=== PATIENT | male | born 1955 | race Caucasian/White ===

== ENCOUNTER 2018-10-04 18:03 | Inpatient (IN) | payer MEDICAID ==
[~2018-10-04] VITALS: Ht 172.7 cm; Wt 55.3 kg
[2018-10-04 18:31] VITALS: BP 132/81
[2018-10-04 20:04] LABS: HEMOGLOBIN 9.8 G/DL (14.2-18.0); MEAN CORPUSCULAR VOLUME 83 FL (80-99); PLATELET COUNT 181 K/UL (150-450); RED BLOOD COUNT 3.73 M/UL (4.70-6.10); RED CELL DISTRIBUTION WIDTH 14.7 % (11.6-14.8)
[2018-10-04 20:07] LABS: LYMPHOCYTES % (AUTO) 7.4 % (20.0-45.0); MONOCYTES % (AUTO) 3.5 % (1.0-10.0); NEUTROPHILS % (AUTO) 87.4 % (45.0-75.0)
[2018-10-04 20:08] LABS: BASOPHILS % (AUTO) 0.8 % (0.0-2.0); EOSINOPHILS % (AUTO) 0.9 % (0.0-3.0)
[2018-10-04 20:12] LABS: ANION GAP 12 mmol/L (5-15); BLOOD UREA NITROGEN 65 mg/dL (7-18); CALCIUM 7.9 MG/DL (8.5-10.1); CARBON DIOXIDE 24 MMOL/L (21-32); CHLORIDE 93 MMOL/L (98-107); CREATININE 7.9 MG/DL (0.55-1.30); POTASSIUM 5.1 MMOL/L (3.5-5.1); SODIUM 129 MMOL/L (136-145)
[2018-10-04] MEDS ORDERED: Norco 5mg/325mg tab ORAL ONE ×2 (20:15→22:30)
[2018-10-04 20:17] LABS: ALANINE AMINOTRANSFERASE 58 U/L (12-78); ALBUMIN 2.3 G/DL (3.4-5.0); ALBUMIN/GLOBULIN RATIO 0.3 (1.0-2.7); ALKALINE PHOSPHATASE 479 U/L (46-116); ASPARTATE AMINO TRANSFERASE 48 U/L (15-37); BILIRUBIN,TOTAL 0.5 MG/DL (0.2-1.0)
[2018-10-04] MEDS ORDERED: Vancomycin 1 GM in NS 275 ML IVPB ONE (21:30)
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
[2018-10-04 22:40] VITALS: BP_SYST 123; BP_SYST 130; BP_DIAS 81; BP_DIAS 93
[2018-10-04] MEDS ORDERED: Norco 5mg/325mg tab ORAL PRN (23:30)
[2018-10-05] VITALS (7 sets, daily range): BP systolic 108–148; BP diastolic 57–72
[2018-10-05 06:45] LABS: HEMATOCRIT 22.9 % (42.0-52.0); HEMOGLOBIN 7.4 G/DL (14.2-18.0); MEAN CORPUSCULAR VOLUME 84 FL (80-99); PLATELET COUNT 134 K/UL (150-450); RED BLOOD COUNT 2.73 M/UL (4.70-6.10); RED CELL DISTRIBUTION WIDTH 14.6 % (11.6-14.8); WHITE BLOOD COUNT 16.9 K/UL (4.8-10.8)
[2018-10-05 06:48] LABS: ANION GAP 12 mmol/L (5-15); BLOOD UREA NITROGEN 69 mg/dL (7-18); CALCIUM 6.7 MG/DL (8.5-10.1); CARBON DIOXIDE 23 MMOL/L (21-32); CHLORIDE 96 MMOL/L (98-107); CREATININE 8.4 MG/DL (0.55-1.30); POTASSIUM 5.8 MMOL/L (3.5-5.1); SODIUM 131 MMOL/L (136-145)
[2018-10-05 08:27] LABS: % IRON SATURATION 9 % (15-50); IRON 17 ug/dL (50-175); TOTAL IRON BINDING CAPACITY 181 ug/dL (250-450)
[2018-10-05 08:29] LABS: PHOSPHORUS 7.3 MG/DL (2.5-4.9)
[2018-10-05 08:47] LABS: CHOLESTEROL 86 MG/DL (< 200); FERRITIN 1513 NG/ML (8-388); HDL CHOLESTEROL 40 MG/DL (40-60); TRIGLYCERIDES 29 MG/DL (30-150)
[2018-10-05] MEDS: Heparin 5000 units/ml inj SUBQ SCH ×2 (09:00→21:00)
[2018-10-05 09:09] LABS: BILIRUBIN, URINE NEGATIVE (NEGATIVE); COLOR,URINE PALE YELLOW; GLUCOSE, URINE (UA) 2+ (NEGATIVE); KETONES,URINE NEGATIVE (NEGATIVE); LEUKOCYTE ESTERASE ,URINE NEGATIVE (NEGATIVE); NITRITE,URINE NEGATIVE (NEGATIVE); PH,URINE 8 (4.5-8.0); PROTEIN,URINE 4+ (NEGATIVE); UROBILINOGEN,URINE NORMAL MG/DL (0.0-1.0)
[2018-10-05 09:14] LABS: APPEARANCE,URINE SLIGHTLY CLOUDY
[2018-10-05 10:43] LABS: INR 1.1 (0.9-1.1)
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
--- NOTE | 2018-10-05 11:52 | Infectious Diseases Prog Note ---
Assessment/Plan Assessment/Plan Full consult dictated: A) 1) left leg wound, ? infected, ? cellulitis, leukocytosis, ? sepsis 2) esrd, hd, pmh noted 3) allergies - nkda P) 1) vancomycin and cefepime 2 check cultures, labs and chest x-ray 3) thank you Subjective Allergies: Coded Allergies: No Known Allergies (Unverified , 10/04/18) Objective Vital Signs Last 24 Hour Vital Signs Date Time Temp Pulse Resp B/P (MAP) Pulse Ox O2 Delivery O2 Flow Rate FiO2 10/05/18 04:00 96.6 67 16 148/66 (93) 99 10/05/18 00:42 Room Air 10/05/18 00:00 97.3 77 19 124/70 (88) 99 10/04/18 22:42 98.2 86 17 123/93 95 Room Air 10/04/18 22:40 98.2 86 17 123/93 95 Room Air 10/04/18 22:40 97.8 76 18 130/81 (97) 100 10/04/18 18:31 95 20 Room Air 10/04/18 18:31 98.2 72 20 132/81 98 Room Air 10/04/18 18:13 98.2 95 20 132/81 98 Room Air Height (Feet): 5 Height (Inches): 8.00 Weight (Pounds): 95 Microbiology Date/Time Source Procedure Growth Status 10/04/18 21:15 Rectum Received Laboratory Tests Test 10/04/18 19:45 10/05/18 05:40 10/05/18 08:24 10/05/18 08:30 White Blood Count 17.0 K/UL (4.8-10.8) H 16.9 K/UL (4.8-10.8) H Red Blood Count 3.73 M/UL (4.70-6.10) L 2.73 M/UL (4.70-6.10) L Hemoglobin 9.8 G/DL (14.2-18.0) L 7.4 G/DL (14.2-18.0) L Hematocrit 31.0 % (42.0-52.0) L 22.9 % (42.0-52.0) L Mean Corpuscular Volume 83 FL (80-99) 84 FL (80-99) Mean Corpuscular Hemoglobin 26.4 PG (27.0-31.0) L 27.1 PG (27.0-31.0) Mean Corpuscular Hemoglobin Concent 31.7 G/DL (32.0-36.0) L 32.3 G/DL (32.0-36.0) Red Cell Distribution Width 14.7 % (11.6-14.8) 14.6 % (11.6-14.8) Platelet Count 181 K/UL (150-450) 134 K/UL (150-450) L Mean Platelet Volume 6.7 FL (6.5-10.1) 6.1 FL (6.5-10.1) L Neutrophils (%) (Auto) 87.4 % (45.0-75.0) H % (45.0-75.0) Lymphocytes (%) (Auto) 7.4 % (20.0-45.0) L % (20.0-45.0) Monocytes (%) (Auto) 3.5 % (1.0-10.0) % (1.0-10.0) Eosinophils (%) (Auto) 0.9 % (0.0-3.0) % (0.0-3.0) Basophils (%) (Auto) 0.8 % (0.0-2.0) % (0.0-2.0) Sodium Level 129 MMOL/L (136-145) L 131 MMOL/L (136-145) L Potassium Level 5.1 MMOL/L (3.5-5.1) 5.8 MMOL/L (3.5-5.1) H Chloride Level 93 MMOL/L (98-107) L 96 MMOL/L (98-107) L Carbon Dioxide Level 24 MMOL/L (21-32) 23 MMOL/L (21-32) Anion Gap 12 mmol/L (5-15) 12 mmol/L (5-15) Blood Urea Nitrogen 65 mg/dL (7-18) H 69 mg/dL (7-18) H Creatinine 7.9 MG/DL (0.55-1.30) H 8.4 MG/DL (0.55-1.30) H Estimat Glomerular Filtration Rate 6.9 mL/min (>60) 6.5 mL/min (>60) Glucose Level 115 MG/DL (74-106) H 89 MG/DL (74-106) Calcium Level 7.9 MG/DL (8.5-10.1) L 6.7 MG/DL (8.5-10.1) L Total Bilirubin 0.5 MG/DL (0.2-1.0) Aspartate Amino Transf (AST/SGOT) 48 U/L (15-37) H Alanine Aminotransferase (ALT/SGPT) 58 U/L (12-78) Alkaline Phosphatase 479 U/L (46-116) H Total Protein 9.1 G/DL (6.4-8.2) H Albumin 2.3 G/DL (3.4-5.0) L Globulin 6.8 g/dL Albumin/Globulin Ratio 0.3 (1.0-2.7) L Pending Neutrophils % (Manual) Pending Lymphocytes % (Manual) Pending Platelet Estimate Pending Platelet Morphology Pending Erythrocyte Sedimentation Rate 85 MM/HR (0-20) H Hemoglobin A1c 4.7 % (4.3-6.0) Uric Acid 6.3 MG/DL (2.6-7.2) Phosphorus Level 7.3 MG/DL (2.5-4.9) H Magnesium Level 1.6 MG/DL (1.8-2.4) L Iron Level 17 ug/dL (50-175) L Total Iron Binding Capacity 181 ug/dL (250-450) L Percent Iron Saturation 9 % (15-50) L Unsaturated Iron Binding 164 ug/dL (112-346) Ferritin 1513 NG/ML (8-388) H C-Reactive Protein, Quantitative 17.6 mg/dL (0.00-0.90) H Triglycerides Level 29 MG/DL (30-150) L Cholesterol Level 86 MG/DL (< 200) LDL Cholesterol 39 mg/dL (<100) HDL Cholesterol 40 MG/DL (40-60) Cholesterol/HDL Ratio 2.2 (3.3-4.4) L Vitamin B12 Level 753 PG/ML (193-986) Folate 5.0 NG/ML (8.6-58.9) L Thyroid Stimulating Hormone (TSH) 5.408 uiU/mL (0.358-3.740) Reticulocyte Count Pending Sickle Cell Screen Pending Prothrombin Time 11.5 SEC (9.30-11.50) Prothromb Time International Ratio 1.1 (0.9-1.1) Fibrinogen 424 mg/dL (200-400) H Calcium (Send out) Pending Soluble Transferrin Receptor Pending Total Protein (PEP) Pending Albumin (PEP) Pending Globulin (PEP) Pending [id number] Pending [id number] Pending Beta Globulins Pending Beta Gamma Globulin Pending PEP Abnormal Protein Bands Pending Protein Electrophoresis Interpret Pending Parathyroid Hormone (Intact) Pending Hepatitis A IgM Antibody Pending Hepatitis B Surface Antigen Pending Hepatitis B Core IgM Antibody Pending Hepatitis C Antibody Pending HIV (1&2) Antibody Rapid Negative (NEGATIVE) Urine Color Pale yellow Urine Appearance Slightly cloudy Urine pH 8 (4.5-8.0) Urine Specific [place] 1.010 (1.005-1.035) Urine Protein 4+ (NEGATIVE) H Urine Glucose (UA) 2+ (NEGATIVE) H Urine Ketones Negative (NEGATIVE) Urine Blood 2+ (NEGATIVE) H Urine Nitrite Negative (NEGATIVE) Urine Bilirubin Negative (NEGATIVE) Urine Urobilinogen Normal MG/DL (0.0-1.0) Urine Leukocyte Esterase Negative (NEGATIVE) Urine RBC 2-4 /HPF (0 - 0) H Urine WBC 0-2 /HPF (0 - 0) Urine Squamous Epithelial Cells Few /LPF (NONE/OCC) Urine Bacteria Few /HPF (NONE) Test 10/05/18 09:30 C-Reactive Protein, Quantitative 20.6 mg/dL (0.00-0.90) H Current Medications Medications (Trade) Dose Ordered Sig/Mary Kay Route PRN Reason Start Time Stop Time Status Last Admin Dose Admin Acetaminophen (Tylenol) 650 mg Q6H PRN ORAL Mild Pain/Temp > 100.5 10/04/18 23:30 11/03/18 23:29 Acetaminophen/ Hydrocodone Bitart ([place] 10/325) 1 tab Q6HR PRN ORAL Severe Pain (Pain Scale 7-10) 10/04/18 23:30 10/11/18 23:29 Acetaminophen/ Hydrocodone Bitart ([place] 5/325) 1 tab Q6H PRN ORAL Moderate Pain (Pain Scale 4-6) 10/04/18 23:30 10/11/18 23:29 10/05/18 09:24 Docusate Sodium (Colace) 100 mg THREE TIMES A DAY ORAL 10/05/18 13:00 11/04/18 12:59 Epoetin David (Procrit (for ESRD on dialysis)) 10,000 units THREE TIMES A WEEK SUBQ 10/06/18 09:00 11/05/18 08:59 Folic Acid (Folate) 3 mg DAILY ORAL 10/05/18 11:04 11/04/18 11:03 Heparin Sodium (Porcine) (Heparin 5000 units/ml) 5,000 units EVERY 12 HOURS SUBQ 10/05/18 09:00 11/04/18 08:59 Iron Sucrose 200 mg/Sodium Chloride 120 ml @ 240 mls/hr ONCE IV 10/05/18 14:00 10/05/18 15:00 Levothyroxine Sodium (Synthroid) 25 mcg DAILY@0630 ORAL 10/06/18 06:30 11/05/18 06:29 Ondansetron HCl (Zofran) 4 mg Q4HR PRN IVP Nausea & Vomiting 10/04/18 23:30 11/03/18 23:29 Pantoprazole (Protonix) 40 mg DAILY ORAL 10/05/18 11:02 11/04/18 11:01 Sevelamer Carbonate (Renvela) 2,400 mg THREE TIMES A DAY ORAL 10/05/18 13:00 11/04/18 12:59 Vancomycin HCl (Vanco rx to dose) 1 ea DAILY PRN MISC Per rx protocol 10/04/18 23:30 11/03/18 23:29 Vitamin B Complex/ Vit C/Folic Acid (Nephrovite) 1 tab DAILY ORAL 10/06/18 09:00 11/05/18 08:59 Ana De La Cruz MD Oct 05, 2018 11:52
[2018-10-05] MEDS: Docusate 100mg cap ORAL SCH ×2 (13:00→18:00)
[2018-10-05] MEDS ORDERED: Iron Sucrose 200 MG in NS 110 ML IV SCH (14:00)
--- NOTE | 2018-10-05 14:24 | Diagnostic Imaging Report ---
Indication: Shortness of breath Technique: One view of the chest Comparison: none Findings: There is a right chest tunneled dialysis catheter in place. There is some atelectasis at the right lung base. The lungs and pleural spaces are otherwise clear. The heart size is upper limits of normal. Aorta is tortuous and calcified. Upper mediastinum is unremarkable Impression: Minimal right basilar atelectasis No acute process otherwise Tunneled dialysis catheter
--- NOTE | 2018-10-05 15:24 | History and Physical ---
History & Physical (DB) History & Physical History & Physical DICT # [id number] Michael Coleman MD Oct 05, 2018 15:24
--- NOTE | 2018-10-05 19:34 | Cardiology Report ---
APPROVED REPORT EXAM: Two-dimensional and M-mode echocardiogram with Doppler and color Doppler. INDICATION EJECTION FRACTION M-Mode DIMENSIONS IVSd1.6 (0.7-1.1cm)Left Atrium (MM)3.6 (1.6-4.0cm) LVDd5.6 (3.5-5.6cm)Aortic Root2.9 (2.0-3.7cm) PWd1.1 (0.7-1.1cm)Aortic Cusp Exc.1.6 (1.5-2.0cm) IVSs1.9 cm LVDs4.7 (2.5-4.0cm) PWs1.2 cm Normal left ventricular chamber size. Septal hypokinesis.mid to distal Inferior wall hypokinesis Left ventricular ejection fraction estimated to be 40%. No evidence left ventricular hypertrophy . No evidence of pericardial effusion. Moderate left atrial enlargement. Mild right trial enlargement. Right ventricular chamber size is within normal limits. partialy visualized viewed material in mid septum of left ventricle noted , this may represent a false tendon as best noted in 5 chamber view as the tech turns his probe Focal aortic valve sclerosis with adequate cusp excursion. Thickened mitral valve leaflets with normal excursion. Mitral annulus and aortic root calcification. Pulmonic valve not well visualized. Normal tricuspid valve structure. pressure. A color flow and spectral Doppler study was performed and revealed: Mild aortic regurgitation. Moderate mitral regurgitation. Mitral inflow velocities indicates possible pseudo normalization pattern implying moderate left ventricular diastolic dysfunction. Mild tricuspid regurgitation. Tricuspid systolic velocities suggests peak right ventricular systolic pressure of 52 mmHg, consistent with moderate pulmonary hypertension. No pulmonic regurgitation present.
--- NOTE | 2018-10-05 19:40 | Cardiology Report ---
APPROVED REPORT EKG Measurement Heart [id number] Normal sinus rhythm Moderate voltage criteria for LVH, may be normal variant T wave abnormality, consider anterolateral ischemia Abnormal ECG
--- NOTE | 2018-10-05 22:00 | History and Physical Report ---
DATE OF ADMISSION: 10/04/2018 REASON FOR ADMISSION: Weakness and need for dialysis. HISTORY OF PRESENT ILLNESS: The patient is a very unfortunate homeless male with a history of IV drug use and end-stage renal disease, on dialysis via right chest wall PermCath with left hip cellulitis, wound infection, hepatitis C, and anemia of chronic disease, presenting with generalized weakness after multiple hospitalizations. The patient was admitted recently to [facility] and then to [facility]. He left [facility] on 10/01/2018. Basically, he was admitted with missed dialysis and volume overload. He was dialyzed. He was started on IV vancomycin. He had a recent left thigh incision and drainage at [facility]. CT at [facility] showed left hip subcutaneous emphysema, but no focal fluid collection. He was found to be hepatitis C positive and HIV negative. He left AMA before any of this could be worked up and before outpatient dialysis was setup. He showed backup at our ER, now five days later with generalized weakness, shortness of breath, and electrolyte abnormalities. He complains of pain. He denies any headaches or dizziness. He denies any nausea, vomiting, diarrhea, or constipation. He denies any fevers or chills. He does have shortness of breath and he seems to have missed dialysis since his discharge. He has evidence of leukocytosis and was started back on antibiotics. PAST MEDICAL HISTORY: 1. End-stage renal disease, on dialysis via right chest wall PermCath. 2. IV drug use. 3. Hepatitis C. 4. Anemia. 5. Questionable CAD. ALLERGIES: Penicillin. MEDICATIONS: Prior to admission medications reviewed. Current medications reviewed. SOCIAL HISTORY: He is a recreational IV drug user, last use six weeks ago. Denies current tobacco or alcohol use. FAMILY HISTORY: Noncontributory. REVIEW OF SYSTEMS: Negative other than the history of present illness. PHYSICAL EXAMINATION: VITAL SIGNS: Temperature 98.6, pulse 67, blood pressure 148/66, respiratory rate 16, and saturating 99% on room air. GENERAL: He is a frail cachectic male, appearing older than his stated age, in no acute distress. Awake, alert, and oriented x3. HEENT: Normocephalic and atraumatic. Oropharynx is clear with moist mucous membranes. NECK: Supple without lymphadenopathy or JVD. CHEST: Clear. Right chest wall PermCath is noted. HEART: Regular. ABDOMEN: Benign. EXTREMITIES: Left lateral greater than right lateral thigh wounds are noted. No fluctuance, but there is erythema and scabbing with some warmth. Otherwise, no cyanosis, clubbing, or edema. ANCILLARY DATA: White count 17, hemoglobin 9.8, and platelet count 181,000. INR 1.1. Sodium 131, potassium 5.8, chloride 96, bicarbonate 23, BUN 69, creatinine 8.4, glucose 89, and calcium 6.7. AST 48, ALT 58, alkaline phosphatase 479, total bilirubin 0.5, total protein 9.1, albumin 2.3, globulin 6.8, iron 17, TIBC 181, saturation 9%, ferritin 1513, and CRP 17. Triglycerides 29. TSH 5.408. Urinalysis noted. HIV negative. Review of records from [facility]. On 09/26/2018, chest x-ray shows dialysis catheter and left base atelectasis. On 09/26/2018, CT left hip shows unremarkable osseous structures and extensive subcutaneous edema. On 09/27/2018, abdominal ultrasound shows small echogenic kidneys, hepatomegaly, and gallbladder wall thickening. Hemoglobin of 8.2 on the date of discharge and 7.7 white count. Hepatitis A core antibody IgM nonreactive, hepatitis B surface antibody 0.45, hepatitis B surface antigen nonreactive, hepatitis C RNA 1,575,000, hepatitis C antibody reactive, HIV negative, hepatitis A IgM negative, and cultures were negative. ASSESSMENT: The patient is a 62-year-old homeless male with a history of IV drug use; hepatitis C; hepatopathy; end-stage renal disease, on dialysis via tunneled cath; and noncompliance with missed dialysis, presenting with weakness, failure to thrive, and likely infection with leukocytosis and systemic inflammatory response syndrome. PROBLEM LIST: 1. End-stage renal disease, status post missed dialysis via PermCath. 2. Anemia, acute on chronic, with evidence of iron deficiency. 3. Hepatitis C. 4. Left thigh wound, imaging at [facility] reviewed. No evidence of abscess. 5. IV drug use. 6. Homelessness. 7. Systemic inflammatory response syndrome. 8. Leukocytosis. 9. Hypothyroidism. TREATMENT PLAN: 1. Admit to hospital. 2. Resume IV vancomycin that the patient was on at the day of discharge at [facility] and cefepime per ID. 3. Follow up cultures. 4. Dialysis per Renal. 5. May need to remove PermCath and either have a long holiday place in line. 6. Monitor hemoglobin and hematocrit, transfuse as needed, IV iron. 7. Gastrointestinal and Hematology evaluation. 8. Surgery evaluation of the wound. 9. Social work evaluation to assist with placement. 10. Pain control/supportive care. 11. Continue Synthroid, follow up TSH and TFTs. 12. Multivitamins, thiamine, and folate. 13. DVT prophylaxis, heparin subcutaneous. 14. Diabetic renal diet. 15. The patient is a Full Code. Michael Coleman M.D. DR: DAR JOB#: [id number] CC:
[2018-10-06] VITALS: BP 132/70
[2018-10-06] MEDS: HYDROcodone/Acetamin 10/325 tab ORAL PRN ×4 (01:24→20:50)
[2018-10-06 04:00] VITALS: BP 121/71
[2018-10-06 05:54] LABS: HEMOGLOBIN 7.7 G/DL (14.2-18.0); MEAN CORPUSCULAR VOLUME 84 FL (80-99); PLATELET COUNT 126 K/UL (150-450); RED BLOOD COUNT 2.97 M/UL (4.70-6.10); RED CELL DISTRIBUTION WIDTH 14.4 % (11.6-14.8); WHITE BLOOD COUNT 12.3 K/UL (4.8-10.8)
[2018-10-06] MEDS: Levothyroxine 25mcg tab ORAL SCH (06:14)
[2018-10-06 06:20] LABS: ALANINE AMINOTRANSFERASE 38 U/L (12-78); ALBUMIN 1.8 G/DL (3.4-5.0); ALBUMIN/GLOBULIN RATIO 0.3 (1.0-2.7); ALKALINE PHOSPHATASE 338 U/L (46-116); ANION GAP 10 mmol/L (5-15); ASPARTATE AMINO TRANSFERASE 31 U/L (15-37); BILIRUBIN,TOTAL 0.4 MG/DL (0.2-1.0); BLOOD UREA NITROGEN 38 mg/dL (7-18); CALCIUM 7.1 MG/DL (8.5-10.1); CARBON DIOXIDE 27 MMOL/L (21-32); CHLORIDE 98 MMOL/L (98-107); CREATININE 5.1 MG/DL (0.55-1.30); POTASSIUM 4.3 MMOL/L (3.5-5.1); SODIUM 134 MMOL/L (136-145)
[2018-10-06 06:49] LABS: GAMMA GLUTAMYL TRANSPEPTIDASE 99 U/L (5-85); PHOSPHORUS 3.7 MG/DL (2.5-4.9)
--- NOTE | 2018-10-06 06:55 | General Progress Note ---
Assessment/Plan Assessment/Plan #. Anemia of kidney disease -- anemia panel reviewed, has end-stage renal disease, status post missed dialysis via PermCath. --> would not recommend iron at this time --> transfuse on prn basis, if hgb <7 --> no evidence for hemolysis noted --> HD on permacath #. Thrombocytopenia due to underlying Hepatitis C. has been chronic --> check afp level, and trend plts as needed --> transfuse on prn basis --> peripheral smear reviewed --> on abx as per ID #. Leukocytosis likely due to infection s/p abx --> trend for improvement #. Left thigh wound, imaging at [facility] reviewed. No evidence of abscess. ==> on abx #. IV drug use. #. Homelessness. #. Systemic inflammatory response syndrome. #. Hypothyroidism. #. Hep C #. ESRD on hd 3x a week GREATLY APPRECIATE CONSULTATION. Subjective Constitutional: Denies: no symptoms, chills, diaphoresis, fever, malaise, weakness, other HEENT: Denies: no symptoms, eye pain, blurred vision, tearing, double vision, ear pain, ear discharge, nose pain, nose congestion, throat pain, throat swelling, mouth pain, mouth swelling, other Cardiovascular: Denies: no symptoms, chest pain, edema, irregular heart rate, lightheadedness, palpitations, syncope, other Gastrointestinal/Abdominal: Denies: no symptoms, abdomen distended, abdominal pain, black stools, tarry stools, blood in stool, constipated, diarrhea, difficulty swallowing, nausea, poor appetite, poor fluid intake, rectal bleeding , vomiting, other Genitourinary: Denies: no symptoms, burning, discharge, frequency, flank pain, hematuria, incontinence, pain, urgency, other Neurologic/Psychiatric: Denies: no symptoms, anxiety, depressed, emotional problems, headache, numbness, paresthesia, pre-existing deficit, seizure, tingling, tremors, weakness, other Endocrine: Denies: no symptoms, excessive sweating, flushing, intolerance to cold, intolerance to heat, increased hunger, increased thirst, increased urine, unexplained weight gain, unexplained weight loss, other Hematologic/Lymphatic: Denies: no symptoms, anemia, easy bleeding, easy bruising, other Allergies: Coded Allergies: No Known Allergies (Unverified , 10/04/18) Subjective lower ext pain this am, otherwise no complaints Objective Last 24 Hour Vital Signs Date Time Temp Pulse Resp B/P (MAP) Pulse Ox O2 Delivery O2 Flow Rate FiO2 10/06/18 04:00 98.1 76 18 121/71 (88) 98 10/06/18 00:00 98.6 85 20 132/70 (90) 95 10/05/18 21:00 Room Air 10/05/18 20:00 98.3 76 18 124/72 (89) 97 10/05/18 16:00 97.8 77 108/57 (74) 10/05/18 14:07 98.1 71 18 112/66 (81) 18 10/05/18 12:00 98.1 71 18 112/66 (81) 18 10/05/18 09:00 Room Air 10/05/18 08:00 97.7 73 16 117/64 (81) 98 Intake and Output 10/05/18 10/06/18 18:59 06:59 Intake Total 2530 ml Output Total 400 ml 200 ml Balance 2130 ml -200 ml Intake Oral 480 ml IV Total 50 ml Hemodialysis 2000 ml Output Urine Total 400 ml 200 ml # Voids 3 # Bowel Movements 1 Laboratory Tests 10/05/18 08:24: Reticulocyte Count 1.9, Sickle Cell Screen [Pending], Prothrombin Time 11.5, Prothromb Time International Ratio 1.1, Fibrinogen 424H, Calcium (Send out) [ Pending], Soluble Transferrin Receptor [Pending], Total Protein (PEP) [Pending] , Albumin (PEP) [Pending], Globulin (PEP) [Pending], Albumin/Globulin Ratio [ Pending], [id number] [Pending], [id number]-2-Zkjbzezeo [Pending], Beta Globulins [Pending], Beta Gamma Globulin [Pending], PEP Abnormal Protein Bands [ Pending], Protein Electrophoresis Interpret [Pending], Parathyroid Hormone ( Intact) [Pending], Hepatitis A IgM Antibody Negative, Hepatitis B Surface Antigen Negative, Hepatitis B Core IgM Antibody Negative, Hepatitis C Antibody > 11.0H, HIV (1&2) Antibody Rapid Negative 10/05/18 08:30: Urine Color Pale yellow, Urine Appearance Slightly cloudy, Urine pH 8, Urine Specific [place] 1.010, Urine Protein 4+H, Urine Glucose (UA) 2+H, Urine Ketones Negative, Urine Blood 2+H, Urine Nitrite Negative, Urine Bilirubin Negative, Urine Urobilinogen Normal, Urine Leukocyte Esterase Negative, Urine RBC 2-4H, Urine WBC 0-2, Urine Squamous Epithelial Cells Few, Urine Bacteria Few 10/05/18 09:30: C-Reactive Protein, Quantitative 20.6H 10/06/18 05:10: Albumin/Globulin Ratio 0.3L, White Blood Count 12.3H, Red Blood Count 2.97L, Hemoglobin 7.7L, Hematocrit 25.0L, Mean Corpuscular Volume 84, Mean Corpuscular Hemoglobin 25.8L, Mean Corpuscular Hemoglobin Concent 30.7L, Red Cell Distribution Width 14.4, Platelet Count 126L, Mean Platelet Volume 6.1L, Neutrophils (%) (Auto) , Lymphocytes (%) (Auto) , Monocytes (%) (Auto) , Eosinophils (%) (Auto) , Basophils (%) (Auto) , Sodium Level 134L, Potassium Level 4.3, Chloride Level 98, Carbon Dioxide Level 27, Anion Gap 10, Blood Urea Nitrogen 38H, Creatinine 5.1H, Estimat Glomerular Filtration Rate 11.5, Glucose Level 84, Lactic Acid Level 1.00, Calcium Level 7.1L, Phosphorus Level [Pending] , Magnesium Level [Pending], Total Bilirubin 0.4, Gamma Glutamyl Transpeptidase [Pending], Aspartate Amino Transf (AST/SGOT) 31, Alanine Aminotransferase (ALT/ SGPT) 38, Alkaline Phosphatase 338H, Pro-B-Type Natriuretic Peptide [Pending], Total Protein 7.2, Albumin 1.8L, Globulin 5.4, Random Vancomycin Level 18.3 Height (Feet): 5 Height (Inches): 8.00 Weight (Pounds): 115 General Appearance: alert EENT: normal ENT inspection Neck: supple Cardiovascular: regular rhythm Respiratory/Chest: no respiratory distress Abdomen: no organomegaly Extremities: normal range of motion Edema: 1+ Leg (L), 1+ Leg (R) Neurologic: alert Skin: warm/dry Gordo Jang MD Oct 06, 2018 06:55
[2018-10-06 08:00] VITALS: BP 117/80
[2018-10-06] MEDS: Nephrovite tab (Rena-Vite) ORAL SCH (08:40)
[2018-10-06] MEDS: Docusate 100mg cap ORAL SCH ×3 (08:40→18:00)
[2018-10-06] MEDS: Heparin 5000 units/ml inj SUBQ SCH ×2 (08:43→20:58)
[2018-10-06] MEDS ORDERED: Epogen (for ESRD on dialysis) SUBQ SCH (09:00)
[2018-10-06] MEDS: Epogen (for ESRD on dialysis) SUBQ SCH (09:00)
--- NOTE | 2018-10-06 10:30 | General Progress Note ---
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 - malnutrition - poor prognosis Recommendations - IV Iron - follow labs - push po - no EGD/Colon , per patient wishes - can consider HCV eradication at later date Thank you Cara Berkowitz MD Subjective Allergies: Coded Allergies: No Known Allergies (Unverified , 10/04/18) Objective Last 24 Hour Vital Signs Date Time Temp Pulse Resp B/P (MAP) Pulse Ox O2 Delivery O2 Flow Rate FiO2 10/06/18 04:00 98.1 76 18 121/71 (88) 98 10/06/18 00:00 98.6 85 20 132/70 (90) 95 10/05/18 21:00 Room Air 10/05/18 20:00 98.3 76 18 124/72 (89) 97 10/05/18 16:00 97.8 77 108/57 (74) 10/05/18 14:07 98.1 71 18 112/66 (81) 18 10/05/18 12:00 98.1 71 18 112/66 (81) 18 Intake and Output 10/05/18 10/06/18 19:00 07:00 Intake Total 2530 ml Output Total 400 ml 200 ml Balance 2130 ml -200 ml Intake Oral 480 ml IV Total 50 ml Hemodialysis 2000 ml Output Urine Total 400 ml 200 ml # Voids 3 # Bowel Movements 1 Laboratory Tests 10/06/18 05:10: White Blood Count 12.3H, Red Blood Count 2.97L, Hemoglobin 7.7L, Hematocrit 25.0L, Mean Corpuscular Volume 84, Mean Corpuscular Hemoglobin 25.8L, Mean Corpuscular Hemoglobin Concent 30.7L, Red Cell Distribution Width 14.4, Platelet Count 126L, Mean Platelet Volume 6.1L, Neutrophils (%) (Auto) , Lymphocytes (%) (Auto) , Monocytes (%) (Auto) , Eosinophils (%) (Auto) , Basophils (%) (Auto) , Sodium Level 134L, Potassium Level 4.3, Chloride Level 98 , Carbon Dioxide Level 27, Anion Gap 10, Blood Urea Nitrogen 38H, Creatinine 5.1H, Estimat Glomerular Filtration Rate 11.5, Glucose Level 84, Lactic Acid Level 1.00, Calcium Level 7.1L, Phosphorus Level 3.7, Magnesium Level 1.2L, Total Bilirubin 0.4, Gamma Glutamyl Transpeptidase 99H, Aspartate Amino Transf ( AST/SGOT) 31, Alanine Aminotransferase (ALT/SGPT) 38, Alkaline Phosphatase 338H , Pro-B-Type Natriuretic Peptide > 24839I, Total Protein 7.2, Albumin 1.8L, Globulin 5.4, Albumin/Globulin Ratio 0.3L, Random Vancomycin Level 18.3 Height (Feet): 5 Height (Inches): 8.00 Weight (Pounds): 115 Cara Berkowitz MD Oct 06, 2018 10:30
[2018-10-06] MEDS ORDERED: Tubing IV Secondary IV ONE (10:46)
[2018-10-06] MEDS ORDERED: NS 275ml ONE (10:46)
--- NOTE | 2018-10-06 11:50 | Diagnostic Imaging Report ---
Indication: Abdominal distention, abnormal liver function tests, abnormal renal function tests, history of dialysis Technique: Whitlock-scale and duplex images of the upper abdomen were obtained. Doppler interrogation of the pancreatic and hepatic vessels Comparison: Exam is somewhat limited due to suboptimal ability the patient to position Findings: There is a small amount of ascites fluid. Gallbladder demonstrates no stones. Gallbladder wall is borderline thickened, measuring 4 mm thick. Sonographic [place]'s sign is negative. Common bile duct measures 10 mm in diameter. No intrahepatic biliary ductal dilatation. Liver demonstrates heterogeneous echogenicity and surface nodularity. There is an ill-defined area of increased echogenicity in the inferior right hepatic lobe which measures 5.2 x 3.8 x 6 cm. Portal vein and hepatic veins are patent. Pancreas is unremarkable. The spleen is enlarged, measuring 13 cm long axis dimension. It demonstrates a calcification inferiorly. Left kidney measures 9.2 cm in length. Right kidney measures 9.6 cm length. Both kidneys demonstrate increased echogenicity. There is no hydronephrosis. There are small cyst in the right kidney . Non-aneurysmal abdominal aorta . Impression: Liver demonstrates increased echogenicity and surface nodularity, consistent with cirrhosis Ascites, presumed secondary to the above Focus of increased attenuation within the liver. This may represent focal fatty infiltration, but could also represent a mass. Recommend further evaluation with multiphasic CT scanning or liver specific MRI Borderline splenomegaly Negative for gallstones. There is gallbladder wall thickening, most likely related to the hepatocellular disease. Acute acalculous cholecystitis less likely, but not completely excludable, and consideration should be given that hepatobiliary scanning if there is high clinical suspicion Splenic calcification, consistent with old granulomatous disease Increased renal echogenicity, consistent with medical renal disease. Negative for hydronephrosis Incidental finding small right renal cysts
[2018-10-06 12:00] VITALS: BP 98/63
--- NOTE | 2018-10-06 13:42 | General Progress Note ---
Assessment/Plan Problem List: (1) Hepatitis C ICD Codes: B19.20 - Unspecified viral hepatitis C without hepatic coma SNOMED: 03750042 (2) Anemia ICD Codes: D64.9 - Anemia, unspecified SNOMED: 122199486 (3) Dialysis patient ICD Codes: Z99.2 - Dependence on renal dialysis SNOMED: 196797022 (4) FTT (failure to thrive) in adult ICD Codes: R62.7 - Adult failure to thrive SNOMED: 151504537 (5) Cellulitis ICD Codes: L03.90 - Cellulitis, unspecified SNOMED: 319417159 (6) Leukocytosis ICD Codes: D72.829 - Elevated white blood cell count, unspecified SNOMED: 575579814, 626328743 (7) Homeless ICD Codes: Z59.0 - Homelessness SNOMED: 79318257, 927813649 (8) Missed dialysis SNOMED: 076061487 (9) CHF (congestive heart failure) ICD Codes: I50.9 - Heart failure, unspecified SNOMED: 39162071 (10) Bacteremia ICD Codes: R78.81 - Bacteremia SNOMED: 9722862 Status: stable Assessment/Plan ASSESSMENT: The patient is a 62-year-old homeless male with a history of IV drug use; hepatitis C; hepatopathy; end-stage renal disease, on dialysis via tunneled cath; and noncompliance with missed dialysis, presenting with weakness, failure to thrive, and likely infection with leukocytosis and systemic inflammatory response syndrome/sepsis PROBLEM LIST: 1. End-stage renal disease, status post missed dialysis via PermCath. 2. Anemia, acute on chronic, with evidence of iron deficiency. 3. Hepatitis C. 4. Left thigh wound, imaging at [facility] reviewed. No evidence of abscess. 5. IV drug use. 6. Homelessness. 7. Systemic inflammatory response syndrome/sepsis 8. Leukocytosis. 9. Hypothyroidism 10. GPC bacteremia 11. CHF with systolic dysfunction TREATMENT PLAN: 1. Abx per ID, F/u Cx's 2. ? D/C permacath 3. HD per renal 4. Surgery recs 5. wound care 6. Monitor hemoglobin and hematocrit, transfuse as needed, IV iron. 7. F/U GI and heme recs 8. Cardiology evaluation 9. Social work evaluation to assist with placement. 10. Pain control/supportive care. 11. Continue Synthroid 12. Multivitamins, thiamine, and folate. 13. DVT prophylaxis, heparin subcutaneous. 14. Diabetic renal diet. 15. The patient is a Full Code. Subjective Allergies: Coded Allergies: No Known Allergies (Unverified , 10/04/18) Subjective AFVSS, stable on RA S/P HD GPC BSI Hb 7.7 LVEF 40% with global hypokinesis\ Declines endoscopy, declines removal of tunneled cath No F/C/CP/SOB/N/V/D Objective Last 24 Hour Vital Signs Date Time Temp Pulse Resp B/P (MAP) Pulse Ox O2 Delivery O2 Flow Rate FiO2 10/06/18 04:00 98.1 76 18 121/71 (88) 98 10/06/18 00:00 98.6 85 20 132/70 (90) 95 10/05/18 21:00 Room Air 10/05/18 20:00 98.3 76 18 124/72 (89) 97 10/05/18 16:00 97.8 77 108/57 (74) 10/05/18 14:07 98.1 71 18 112/66 (81) 18 Intake and Output 10/05/18 10/06/18 19:00 07:00 Intake Total 2530 ml Output Total 400 ml 200 ml Balance 2130 ml -200 ml Intake Oral 480 ml IV Total 50 ml Hemodialysis 2000 ml Output Urine Total 400 ml 200 ml # Voids 3 # Bowel Movements 1 Laboratory Tests 10/06/18 05:10: White Blood Count 12.3H, Red Blood Count 2.97L, Hemoglobin 7.7L, Hematocrit 25.0L, Mean Corpuscular Volume 84, Mean Corpuscular Hemoglobin 25.8L, Mean Corpuscular Hemoglobin Concent 30.7L, Red Cell Distribution Width 14.4, Platelet Count 126L, Mean Platelet Volume 6.1L, Neutrophils (%) (Auto) , Lymphocytes (%) (Auto) , Monocytes (%) (Auto) , Eosinophils (%) (Auto) , Basophils (%) (Auto) , Sodium Level 134L, Potassium Level 4.3, Chloride Level 98 , Carbon Dioxide Level 27, Anion Gap 10, Blood Urea Nitrogen 38H, Creatinine 5.1H, Estimat Glomerular Filtration Rate 11.5, Glucose Level 84, Lactic Acid Level 1.00, Calcium Level 7.1L, Phosphorus Level 3.7, Magnesium Level 1.2L, Total Bilirubin 0.4, Gamma Glutamyl Transpeptidase 99H, Aspartate Amino Transf ( AST/SGOT) 31, Alanine Aminotransferase (ALT/SGPT) 38, Alkaline Phosphatase 338H , Pro-B-Type Natriuretic Peptide > 89973X, Total Protein 7.2, Albumin 1.8L, Globulin 5.4, Albumin/Globulin Ratio 0.3L, Random Vancomycin Level 18.3 Height (Feet): 5 Height (Inches): 8.00 Weight (Pounds): 115 General Appearance: no apparent distress, cachetic EENT: PERRL/EOMI Neck: non-tender, normal alignment, supple, normal inspection Cardiovascular: normal peripheral pulses, normal rate, regular rhythm Respiratory/Chest: chest wall non-tender, lungs clear, normal breath sounds, no respiratory distress, other - tunneled cath Abdomen: normal bowel sounds, non tender, soft, no organomegaly, no mass Edema: no edema noted Arm (L), no edema noted Arm (R), no edema noted Leg (L), no edema noted Leg (R), no edema noted Pedal (L), no edema noted Pedal (R), no edema noted Generalized Skin: other - wounds stable Michael Coleman MD Oct 06, 2018 13:42
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
--- NOTE | 2018-10-06 14:54 | Nephrology Progress Note ---
Assessment/Plan Problem List: (1) Cardiomyopathy (2) ESRD on dialysis (3) Bacteremia (4) Homeless (5) Leukocytosis Assessment ESRD- Missed HD Cardiomyopathy Anemia of CKD Hyperkalemia Leukocytosis, ? Line infectio FTT (failure to thrive) in adult- malnutrition Homeless Plan Plan: Iron- Folate- Dialysis as needed Phos binders 2D echo Septal hypokinesis.mid to distal Inferior wall hypokinesis Left ventricular ejection fraction estimated to be 40%. blood cultures per orders Objective Objective Last 24 Hour Vital Signs Date Time Temp Pulse Resp B/P (MAP) Pulse Ox O2 Delivery O2 Flow Rate FiO2 10/06/18 04:00 98.1 76 18 121/71 (88) 98 10/06/18 00:00 98.6 85 20 132/70 (90) 95 10/05/18 21:00 Room Air 10/05/18 20:00 98.3 76 18 124/72 (89) 97 10/05/18 16:00 97.8 77 108/57 (74) Intake and Output 10/05/18 10/06/18 19:00 07:00 Intake Total 2530 ml Output Total 400 ml 200 ml Balance 2130 ml -200 ml Intake Oral 480 ml IV Total 50 ml Hemodialysis 2000 ml Output Urine Total 400 ml 200 ml # Voids 3 # Bowel Movements 1 Laboratory Tests 10/06/18 05:10: White Blood Count 12.3H, Red Blood Count 2.97L, Hemoglobin 7.7L, Hematocrit 25.0L, Mean Corpuscular Volume 84, Mean Corpuscular Hemoglobin 25.8L, Mean Corpuscular Hemoglobin Concent 30.7L, Red Cell Distribution Width 14.4, Platelet Count 126L, Mean Platelet Volume 6.1L, Neutrophils (%) (Auto) , Lymphocytes (%) (Auto) , Monocytes (%) (Auto) , Eosinophils (%) (Auto) , Basophils (%) (Auto) , Sodium Level 134L, Potassium Level 4.3, Chloride Level 98 , Carbon Dioxide Level 27, Anion Gap 10, Blood Urea Nitrogen 38H, Creatinine 5.1H, Estimat Glomerular Filtration Rate 11.5, Glucose Level 84, Lactic Acid Level 1.00, Calcium Level 7.1L, Phosphorus Level 3.7, Magnesium Level 1.2L, Total Bilirubin 0.4, Gamma Glutamyl Transpeptidase 99H, Aspartate Amino Transf ( AST/SGOT) 31, Alanine Aminotransferase (ALT/SGPT) 38, Alkaline Phosphatase 338H , Pro-B-Type Natriuretic Peptide > 42254A, Total Protein 7.2, Albumin 1.8L, Globulin 5.4, Albumin/Globulin Ratio 0.3L, Random Vancomycin Level 18.3 Height (Feet): 5 Height (Inches): 8.00 Weight (Pounds): 115 David Meyers MD Oct 06, 2018 14:54
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
--- NOTE | 2018-10-06 18:15 | Consultation ---
DATE OF CONSULTATION: 10/06/2018 GASTROENTEROLOGY CONSULTATION CHIEF COMPLAINT: I was asked to see this patient by Dr. Michael Coleman for evaluation of hepatitis C and anemia. HISTORY OF PRESENT ILLNESS: The patient is an unfortunate debilitated 62-year-old white man who was homeless, was brought into the hospital due to various ailments as outlined below. He does have a history of IV drug use and end-stage renal disease. He is on dialysis and was also found to have hepatitis C, left hip cellulitis. He is weak and debilitated and complains of pain. He states he has never had endoscopy or colonoscopy and he adamantly declined to having one at this time. The indications for the colonoscopy including the possibility of colon cancer, stomach cancer explained to the patient. He also know that he has hepatitis C but he has not been treated for it yet. PAST MEDICAL HISTORY: History of end-stage renal disease on chronic dialysis, history of IV drug use, history of hepatitis C, anemia iron deficiency,hip infection. MEDICATIONS: See the chart list for details. FAMILY HISTORY: Noncontributory. SOCIAL HISTORY: The patient does use IV drugs, last use about 6 weeks ago. He denies smoking or drinking. Lives at home. REVIEW OF SYSTEMS: Otherwise negative. PHYSICAL EXAMINATION: GENERAL: A thin disheveled white man, seen in his room. HEENT: Normocephalic and atraumatic. Dentition is poor. NECK: Supple. CHEST: Clear to auscultation. CARDIOVASCULAR: Revealed regular rate. ABDOMEN: Soft. EXTREMITIES: Revealed multiple skin markings from previous drug use. There is no edema. LABORATORY DATA: Noted. ASSESSMENT: This patient presents with anemia which is multifactorial. It is probably due to his renal failure and a chronic disease, but also there is some degree of iron deficiency although he is not microcytic. He has not had an endoscopy or colonoscopy and therefore these tests are clearly indicated. However, the patient adamantly refused at this time and is not interested in these evaluations. He also has hepatitis C and this can be eradicated with newer regimen available. However, this is typically to start as an outpatient and would require serial followup pattern for monitoring the success. The patient was advised to follow up with Gastroenterology as an outpatient for hepatitis C treatment protocol. RECOMMENDATIONS: 1. Push oral intake. 2. IV iron to replace stores. 3. Monitor labs. 4. Outpatient hepatitis C treatment. 5. No endoscopy or colonoscopy planned per the patient's decision. Thank you for asking me to participate in the care of this patient. Cara Berkowitz M.D. DR: Artis JOB#: [id number] CC: RYAN
[2018-10-06 20:00] VITALS: BP 122/65
--- NOTE | 2018-10-06 20:10 | Cardiology Progress Note ---
Assessment/Plan Assessment/Plan cm likely ischemic chf acute on chronic systolic hep c ? "liver cancer" per pt esrd on hd med / dialysis non adherence ? cad hs tobacco use do ivda hx cirrhosis by u/s area of hepatic increased echogenicity in liver pt looking for place to live need med for prevention of chf need dialysis trop and ekg acei [id number] Objective Last 24 Hour Vital Signs Date Time Temp Pulse Resp B/P (MAP) Pulse Ox O2 Delivery O2 Flow Rate FiO2 10/06/18 12:00 98.0 76 22 98/63 (75) 97 10/06/18 09:00 Room Air 10/06/18 08:00 98.4 15 117/80 (92) 95 10/06/18 04:00 98.1 76 18 121/71 (88) 98 10/06/18 00:00 98.6 85 20 132/70 (90) 95 10/05/18 21:00 Room Air Intake and Output 10/05/18 10/06/18 19:00 07:00 Intake Total 2530 ml Output Total 400 ml 200 ml Balance 2130 ml -200 ml Intake Oral 480 ml IV Total 50 ml Hemodialysis 2000 ml Output Urine Total 400 ml 200 ml # Voids 3 # Bowel Movements 1 Laboratory Tests Test 10/06/18 05:10 White Blood Count 12.3 K/UL (4.8-10.8) H Red Blood Count 2.97 M/UL (4.70-6.10) L Hemoglobin 7.7 G/DL (14.2-18.0) L Hematocrit 25.0 % (42.0-52.0) L Mean Corpuscular Volume 84 FL (80-99) Mean Corpuscular Hemoglobin 25.8 PG (27.0-31.0) L Mean Corpuscular Hemoglobin Concent 30.7 G/DL (32.0-36.0) L Red Cell Distribution Width 14.4 % (11.6-14.8) Platelet Count 126 K/UL (150-450) L Mean Platelet Volume 6.1 FL (6.5-10.1) L Neutrophils (%) (Auto) % (45.0-75.0) Lymphocytes (%) (Auto) % (20.0-45.0) Monocytes (%) (Auto) % (1.0-10.0) Eosinophils (%) (Auto) % (0.0-3.0) Basophils (%) (Auto) % (0.0-2.0) Sodium Level 134 MMOL/L (136-145) L Potassium Level 4.3 MMOL/L (3.5-5.1) Chloride Level 98 MMOL/L (98-107) Carbon Dioxide Level 27 MMOL/L (21-32) Anion Gap 10 mmol/L (5-15) Blood Urea Nitrogen 38 mg/dL (7-18) H Creatinine 5.1 MG/DL (0.55-1.30) H Estimat Glomerular Filtration Rate 11.5 mL/min (>60) Glucose Level 84 MG/DL (74-106) Lactic Acid Level 1.00 mmol/L (0.4-2.0) Calcium Level 7.1 MG/DL (8.5-10.1) L Phosphorus Level 3.7 MG/DL (2.5-4.9) Magnesium Level 1.2 MG/DL (1.8-2.4) L Total Bilirubin 0.4 MG/DL (0.2-1.0) Gamma Glutamyl Transpeptidase 99 U/L (5-85) H Aspartate Amino Transf (AST/SGOT) 31 U/L (15-37) Alanine Aminotransferase (ALT/SGPT) 38 U/L (12-78) Alkaline Phosphatase 338 U/L (46-116) H Pro-B-Type Natriuretic Peptide > 77497 pg/mL (0-125) H Total Protein 7.2 G/DL (6.4-8.2) Albumin 1.8 G/DL (3.4-5.0) L Globulin 5.4 g/dL Albumin/Globulin Ratio 0.3 (1.0-2.7) L Random Vancomycin Level 18.3 ug/mL Microbiology Date/Time Source Procedure Growth Status 10/04/18 21:45 Blood Blood Culture - Preliminary Resulted 10/04/18 21:30 Blood Blood Culture - Preliminary NO GROWTH AFTER 24 HOURS Resulted 10/05/18 08:30 Urine,Clean Catch Urine Culture - Preliminary NO GROWTH Resulted 10/04/18 21:15 Rectum - Preliminary Resulted Arturo Lai MD Oct 06, 2018 20:10
[2018-10-06] MEDS ORDERED: Iron Sucrose 100 MG in NS 55 ML IV SCH (21:00)
--- NOTE | 2018-10-06 21:45 | Consultation ---
DATE OF CONSULTATION: 10/06/2018 INFECTIOUS DISEASES CONSULTATION CONSULTING PHYSICIAN: Ana De La Cruz M.D. ATTENDING PHYSICIAN: Michael Coleman M.D. REFERRING PHYSICIAN: Michael Coleman M.D. REASON FOR CONSULTATION: Sepsis with gram-positive bacteremia, infected left leg wound and cellulitis, possible abscess CHIEF COMPLAINT: The patient's chief complaint coming into the hospital is failure to thrive, acute dialysis needed, left leg cellulitis, infected wound with sepsis and leukocytosis. HISTORY OF PRESENT ILLNESS: This is a 62-year-old male, who has history of being hospitalized and recently had what looks like an incision and drainage of thigh of an abscess at [facility] it looks like. CT at that time at [facility] also shows subcutaneous emphysema but no fluid collection. The patient also history of hepatitis C. The patient also had left AMA for hemodialysis it looks like. The patient was admitted to [facility] for need of dialysis and also because of elevated white count and possible sepsis. The patient also had left leg which includes the thigh cellulitis and possible infected wound. The patient was brought to surgery and at this time there is no surgical intervention since he had recent incision and drainage. The patient is on vancomycin and cefepime. The patient has hemodialysis line which was 5 months old. Blood cultures are growing out gram-positive organisms. Identification is pending. Infectious Diseases consultation was requested for antibiotic management. The patient with sepsis and elevated white count. The patient will be continued on vancomycin and cefepime for now. Case was discussed with Dr. Coleman. REVIEW OF SYSTEMS: CONSTITUTIONAL: He has generalized fatigue but no focal weakness. No fever or chills. HEAD AND NECK: No head pain or neck pain. CARDIAC: No chest pain. GASTROINTESTINAL: No nausea, vomiting, abdominal pain, diarrhea. GENITOURINARY: No dysuria. He has hemodialysis line. PULMONARY: No congestion, shortness of breath. EXTREMITIES: He has left leg pain. NEUROLOGIC: No seizures. PAST MEDICAL HISTORY: The patient's past medical history includes history of following. The patient has a past medical history of end-stage renal disease on hemodialysis, hepatitis C, anemia, possible CAD, IV drug abuse, history of hemodialysis, PermCath, end-stage renal disease, history of left hip and leg wound, it looks like the left thigh area, history of thrombocytopenia, history of infected wounds, history of hyperkalemia, CHF. No history of hypertension mentioned. MEDICATIONS: Upon reviewing the MAR, the patient is on following medications. He is on iron, Renvela, magnesium sulfate, Epogen, levothyroxine, cefepime, Colace, folic acid, vancomycin pantoprazole, heparin, acetaminophen, hydrocodone, Zofran, levothyroxine, cefepime, vancomycin antibiotics. Outside medications noted and reconciliated. ALLERGIES: . No known drug allergies. SOCIAL HISTORY: Negative for smoking or alcohol abuse but does have history of IV drug abuse. FAMILY HISTORY: Noncontributory. PHYSICAL EXAMINATION: VITAL SIGNS: Temperature is 98.1, pulse rate 76, respiratory rate 18, blood pressure 121/71, saturation 98%. The patient's heart rate on admission was 95, respiratory rate as high as 20. GENERAL: Alert and responsive, no acute distress. HEAD AND NECK: Oral exam, no thrush. Eye exam, no icterus. Neck is supple. No JVD. Normocephalic. HEART: Regular. No obvious gallop or murmur. LUNGS: Clear bilaterally. No rhonchi or rales. ABDOMEN: Soft. Positive bowel sounds. Nontender. GENITOURINARY: No [place]. No CVA tenderness. SKIN: No rash or dermatitis. MUSCULOSKELETAL: No evidence of septic arthritis. PERIPHERAL VASCULAR: No gangrene. EXTREMITIES: Lower extremity exam, hip exam, left leg and thigh area with necrotic wound and surrounding mild cellulitis warmth and redness. Left hip area was reviewed, no obvious draining wounds were noted. No significant necrosis, may be scattered areas of necrosis, most of the infection looks like is left thigh and leg. NEUROLOGIC: Intact. LINE SITES: Without phlebitis. He has hemodialysis line. No cellulitis. LABORATORY AND DIAGNOSTIC DATA: Laboratory data as follows. White count on admission 16.9, hemoglobin 7.4. The patient's creatinine is . LFTs were noted. Hepatitis C serology is positive. Vancomycin random is 18.3. UA was leukocyte esterase negative. Cultures, urine culture is negative. Blood cultures growing 1/4 gram-positive cocci in chains. Followup blood cultures been ordered. Identification of blood culture is pending. IMAGING STUDIES: Chest x-ray shows only atelectasis, no consolidation. Abdominal ultrasound showed negative for gallstones, hepatocellular disease and gallbladder wall thickening with acute acalculous cholecystitis less likely per the report. ASSESSMENT AND PLAN: 1. The patient has looks like sepsis syndrome, tachycardia, elevated white count. The patient also has gram-positive blood cultures with possible bacteremia versus contaminant. The patient also could have line infection or source could be the left thigh/leg with possible infected wound and cellulitis with history of abscess status post incision and drainage. At this time, we will continue vancomycin and cefepime to cover for the bacteremia and the soft tissue infection. Check identification of blood cultures. Follow up blood cultures. Echocardiogram was reviewed, did not show any vegetation, unlikely to have endocarditis. Continue vancomycin and cefepime for sepsis, possible gram-positive bacteremia and possibly infected and thigh wound with cellulitis. Check followup labs. Chest x-ray, blood cultures, and surveillance blood cultures. Case discussed with Dr. Coleman. Continue wound care per surgery. At this time. The patient has history of I and D, no further I and D at this time. 2. The patient has end-stage renal disease, on hemodialysis. 3. Possible hypothyroidism, he is on levothyroxine. 4. Anemia. 5. Thrombocytopenia. 6. Hepatitis C infection. 7. Hepatocellular disease. 8. Failure to thrive. 9. End-stage renal disease, hemodialysis. 10. Noncompliance with dialysis. 11. No history of hypertension or diabetes. 12. History of abscess status post incision and drainage. 13. No known drug allergies.. 14. Social positive for intravenous drug abuse. 15. Family history is Noncontributory. 16. Case discussed with RN. 17. Case discussed with primary consultants. 18. MAR was noted. 19. Notes and records were noted. 20. Orders were entered. Ana De La Cruz M.D. DR: Aj JOB#: [id number] CC:
[2018-10-07] VITALS: BP 118/61
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
[2018-10-07 04:00] VITALS: BP 125/70
[2018-10-07] MEDS: Levothyroxine 25mcg tab ORAL SCH (06:18)
[2018-10-07] MEDS: HYDROcodone/Acetamin 10/325 tab ORAL PRN (06:18)
[2018-10-07 06:42] LABS: HEMATOCRIT 22.7 % (42.0-52.0); HEMOGLOBIN 7.1 G/DL (14.2-18.0); MEAN CORPUSCULAR VOLUME 84 FL (80-99); PLATELET COUNT 120 K/UL (150-450); RED BLOOD COUNT 2.71 M/UL (4.70-6.10); RED CELL DISTRIBUTION WIDTH 14.5 % (11.6-14.8); WHITE BLOOD COUNT 11.7 K/UL (4.8-10.8)
[2018-10-07 06:48] LABS: ALANINE AMINOTRANSFERASE 28 U/L (12-78); ALBUMIN 1.5 G/DL (3.4-5.0); ALBUMIN/GLOBULIN RATIO 0.3 (1.0-2.7); ALKALINE PHOSPHATASE 281 U/L (46-116); ANION GAP 10 mmol/L (5-15); ASPARTATE AMINO TRANSFERASE 22 U/L (15-37); BILIRUBIN,TOTAL 0.3 MG/DL (0.2-1.0); BLOOD UREA NITROGEN 50 mg/dL (7-18); CARBON DIOXIDE 26 MMOL/L (21-32); CHLORIDE 97 MMOL/L (98-107); CREATININE 6.3 MG/DL (0.55-1.30); PHOSPHORUS 4.8 MG/DL (2.5-4.9); SODIUM 132 MMOL/L (136-145)
[2018-10-07 08:00] VITALS: BP 115/52
[2018-10-07] MEDS: Heparin 5000 units/ml inj SUBQ SCH ×2 (09:00→21:00)
[2018-10-07] MEDS: Docusate 100mg cap ORAL SCH ×3 (09:00→17:25)
[2018-10-07] MEDS: Nephrovite tab (Rena-Vite) ORAL SCH (09:50)
[2018-10-07 09:58] VITALS: BP 117/67
--- NOTE | 2018-10-07 10:08 | General Progress Note ---
Assessment/Plan Assessment/Plan Assessment - Anemia, multifactorial, part Iron deficiency, also ? Sickle (+) - Hepatitis C - Patient declines EGD/Colon - ESRD - malnutrition - poor prognosis Recommendations - IV Iron - follow labs - push po - no EGD/Colon , per patient wishes - can consider HCV eradication at later date Subjective Allergies: Coded Allergies: No Known Allergies (Unverified , 10/04/18) Subjective Feels OK no new symptoms Objective Last 24 Hour Vital Signs Date Time Temp Pulse Resp B/P (MAP) Pulse Ox O2 Delivery O2 Flow Rate FiO2 10/07/18 09:58 65 117/67 (84) 10/07/18 09:00 65 117/67 10/07/18 08:00 97.1 69 16 115/52 (73) 95 10/07/18 04:00 96.2 67 16 125/70 (88) 95 10/07/18 00:00 98.0 70 16 118/61 (80) 97 10/06/18 21:00 Room Air 10/06/18 20:49 72 122/65 10/06/18 20:00 99.7 72 16 122/65 (84) 99 10/06/18 12:00 98.0 76 22 98/63 (75) 97 Intake and Output 10/06/18 10/07/18 18:59 06:59 Intake Total 370 ml 60 ml Output Total 350 ml 200 ml Balance 20 ml -140 ml Intake Oral 270 ml IV Total 100 ml 60 ml Output Urine Total 350 ml 200 ml Laboratory Tests 10/07/18 05:04: White Blood Count 11.7H, Red Blood Count 2.71L, Hemoglobin 7.1L, Hematocrit 22.7L, Mean Corpuscular Volume 84, Mean Corpuscular Hemoglobin 26.0L, Mean Corpuscular Hemoglobin Concent 31.1L, Red Cell Distribution Width 14.5, Platelet Count 120L, Mean Platelet Volume 6.7, Neutrophils (%) (Auto) , Lymphocytes (%) (Auto) , Monocytes (%) (Auto) , Eosinophils (%) (Auto) , Basophils (%) (Auto) , Differential Total Cells Counted 100, Neutrophils % ( Manual) 81H, Lymphocytes % (Manual) 15L, Monocytes % (Manual) 3, Eosinophils % ( Manual) 1, Basophils % (Manual) 0, Band Neutrophils 0, Platelet Estimate DecreasedL, Platelet Morphology Normal, Hypochromasia 2+, Anisocytosis 1+, Sodium Level 132L, Potassium Level 5.0, Chloride Level 97L, Carbon Dioxide Level 26, Anion Gap 10, Blood Urea Nitrogen 50H, Creatinine 6.3H, Estimat Glomerular Filtration Rate 9.0, Glucose Level 95, Calcium Level 7.0L, Phosphorus Level 4.8, Magnesium Level 2.3, Total Bilirubin 0.3, Aspartate Amino Transf (AST/SGOT) 22, Alanine Aminotransferase (ALT/SGPT) 28, Alkaline Phosphatase 281H, Troponin I 0.002, Total Protein 6.5, Albumin 1.5L, Globulin 5.0, Albumin/Globulin Ratio 0.3L Height (Feet): 5 Height (Inches): 8.00 Weight (Pounds): 115 Objective Thin NAD NCAT supple CTA RR soft ND no edema Cara Berkowitz MD Oct 07, 2018 10:07
--- NOTE | 2018-10-07 10:18 | Nephrology Progress Note ---
Assessment/Plan Problem List: (1) Cardiomyopathy (2) ESRD on dialysis (3) Bacteremia (4) Homeless (5) Leukocytosis Assessment ESRD- Missed HD Cardiomyopathy Anemia of CKD Hyperkalemia Leukocytosis, ? Line infectio FTT (failure to thrive) in adult- malnutrition Homeless Plan Plan: Iron- stop IV Iron as ferritin is over 1500 Folate- po Dialysis as needed, in am Phos binders 2D echo Septal hypokinesis.mid to distal Inferior wall hypokinesis Left ventricular ejection fraction estimated to be 40%. blood cultures per orders Subjective ROS Limited/Unobtainable: No Constitutional: Reports: malaise Objective Objective Last 24 Hour Vital Signs Date Time Temp Pulse Resp B/P (MAP) Pulse Ox O2 Delivery O2 Flow Rate FiO2 10/07/18 09:58 65 117/67 (84) 10/07/18 09:00 65 117/67 10/07/18 08:00 97.1 69 16 115/52 (73) 95 10/07/18 04:00 96.2 67 16 125/70 (88) 95 10/07/18 00:00 98.0 70 16 118/61 (80) 97 10/06/18 21:00 Room Air 10/06/18 20:49 72 122/65 10/06/18 20:00 99.7 72 16 122/65 (84) 99 10/06/18 12:00 98.0 76 22 98/63 (75) 97 Intake and Output 10/06/18 10/07/18 18:59 06:59 Intake Total 370 ml 60 ml Output Total 350 ml 200 ml Balance 20 ml -140 ml Intake Oral 270 ml IV Total 100 ml 60 ml Output Urine Total 350 ml 200 ml Laboratory Tests 10/07/18 05:04: White Blood Count 11.7H, Red Blood Count 2.71L, Hemoglobin 7.1L, Hematocrit 22.7L, Mean Corpuscular Volume 84, Mean Corpuscular Hemoglobin 26.0L, Mean Corpuscular Hemoglobin Concent 31.1L, Red Cell Distribution Width 14.5, Platelet Count 120L, Mean Platelet Volume 6.7, Neutrophils (%) (Auto) , Lymphocytes (%) (Auto) , Monocytes (%) (Auto) , Eosinophils (%) (Auto) , Basophils (%) (Auto) , Differential Total Cells Counted 100, Neutrophils % ( Manual) 81H, Lymphocytes % (Manual) 15L, Monocytes % (Manual) 3, Eosinophils % ( Manual) 1, Basophils % (Manual) 0, Band Neutrophils 0, Platelet Estimate DecreasedL, Platelet Morphology Normal, Hypochromasia 2+, Anisocytosis 1+, Sodium Level 132L, Potassium Level 5.0, Chloride Level 97L, Carbon Dioxide Level 26, Anion Gap 10, Blood Urea Nitrogen 50H, Creatinine 6.3H, Estimat Glomerular Filtration Rate 9.0, Glucose Level 95, Calcium Level 7.0L, Phosphorus Level 4.8, Magnesium Level 2.3, Total Bilirubin 0.3, Aspartate Amino Transf (AST/SGOT) 22, Alanine Aminotransferase (ALT/SGPT) 28, Alkaline Phosphatase 281H, Troponin I 0.002, Total Protein 6.5, Albumin 1.5L, Globulin 5.0, Albumin/Globulin Ratio 0.3L Height (Feet): 5 Height (Inches): 8.00 Weight (Pounds): 115 General Appearance: no apparent distress Cardiovascular: normal rate Respiratory/Chest: decreased breath sounds Abdomen: soft Objective no change David Meyers MD Oct 07, 2018 10:18
--- NOTE | 2018-10-07 10:36 | General Progress Note ---
Assessment/Plan Problem List: (1) Hepatitis C ICD Codes: B19.20 - Unspecified viral hepatitis C without hepatic coma SNOMED: 64520823 (2) Anemia ICD Codes: D64.9 - Anemia, unspecified SNOMED: 950040169 (3) Dialysis patient ICD Codes: Z99.2 - Dependence on renal dialysis SNOMED: 924339983 (4) FTT (failure to thrive) in adult ICD Codes: R62.7 - Adult failure to thrive SNOMED: 283605597 (5) Cellulitis ICD Codes: L03.90 - Cellulitis, unspecified SNOMED: 131813136 Qualifiers: Qualified Codes: L03.116 - Cellulitis of left lower limb (6) Leukocytosis ICD Codes: D72.829 - Elevated white blood cell count, unspecified SNOMED: 386443461, 125443255 (7) Homeless ICD Codes: Z59.0 - Homelessness SNOMED: 91253346, 876558463 (8) Missed dialysis SNOMED: 816113190 (9) CHF (congestive heart failure) ICD Codes: I50.9 - Heart failure, unspecified SNOMED: 65974792 (10) Bacteremia ICD Codes: R78.81 - Bacteremia SNOMED: 0635100 Assessment/Plan ASSESSMENT: The patient is a 62-year-old homeless male with a history of IV drug use; hepatitis C; hepatopathy; end-stage renal disease, on dialysis via tunneled cath; and noncompliance with missed dialysis, presenting with weakness, failure to thrive, and likely infection with leukocytosis and systemic inflammatory response syndrome/sepsis PROBLEM LIST: 1. End-stage renal disease, status post missed dialysis via PermCath. 2. Anemia, acute on chronic, with evidence of iron deficiency. 3. Hepatitis C. 4. Left thigh wound, [facility]. No evidence of abscess. 5. IV drug use. 6. Homelessness. 7. Systemic inflammatory response syndrome/sepsis 8. Leukocytosis. 9. Hypothyroidism 10. GPC bacteremia 11. CHF with systolic dysfunction TREATMENT PLAN: 1. Abx per ID, F/u Cx's 2. ? D/C permacath 3. HD per renal 4. Surgery recs 5. wound care 6. Monitor hemoglobin and hematocrit, transfuse PRN Hb < 7, IV iron D/C 'd 2/2 elevated ferritin, on EPO 7. F/U GI and heme recs 8. F/U cardiology recs, medical management of CHF, ischemia eval at some point 9. Social work evaluation to assist with placement. 10. Pain control/supportive care. 11. Continue Synthroid 12. Multivitamins, thiamine, and folate. 13. DVT prophylaxis, heparin subcutaneous. 14. Diabetic renal diet. 15. The patient is a Full Code. Subjective Allergies: Coded Allergies: No Known Allergies (Unverified , 10/04/18) Subjective AFVSS, stable on RA Hb 7.1 GPC BSI 1/, repeat CX's NG Budget Coordinator notes reviewed Declines endoscopy, declines removal of tunneled cath No F/C/CP/SOB/N/V/D Objective Last 24 Hour Vital Signs Date Time Temp Pulse Resp B/P (MAP) Pulse Ox O2 Delivery O2 Flow Rate FiO2 10/07/18 09:58 65 117/67 (84) 10/07/18 09:00 65 117/67 10/07/18 08:00 97.1 69 16 115/52 (73) 95 10/07/18 04:00 96.2 67 16 125/70 (88) 95 10/07/18 00:00 98.0 70 16 118/61 (80) 97 10/06/18 21:00 Room Air 10/06/18 20:49 72 122/65 10/06/18 20:00 99.7 72 16 122/65 (84) 99 10/06/18 12:00 98.0 76 22 98/63 (75) 97 Intake and Output 10/06/18 10/07/18 18:59 06:59 Intake Total 370 ml 60 ml Output Total 350 ml 200 ml Balance 20 ml -140 ml Intake Oral 270 ml IV Total 100 ml 60 ml Output Urine Total 350 ml 200 ml Laboratory Tests 10/07/18 05:04: White Blood Count 11.7H, Red Blood Count 2.71L, Hemoglobin 7.1L, Hematocrit 22.7L, Mean Corpuscular Volume 84, Mean Corpuscular Hemoglobin 26.0L, Mean Corpuscular Hemoglobin Concent 31.1L, Red Cell Distribution Width 14.5, Platelet Count 120L, Mean Platelet Volume 6.7, Neutrophils (%) (Auto) , Lymphocytes (%) (Auto) , Monocytes (%) (Auto) , Eosinophils (%) (Auto) , Basophils (%) (Auto) , Differential Total Cells Counted 100, Neutrophils % ( Manual) 81H, Lymphocytes % (Manual) 15L, Monocytes % (Manual) 3, Eosinophils % ( Manual) 1, Basophils % (Manual) 0, Band Neutrophils 0, Platelet Estimate DecreasedL, Platelet Morphology Normal, Hypochromasia 2+, Anisocytosis 1+, Sodium Level 132L, Potassium Level 5.0, Chloride Level 97L, Carbon Dioxide Level 26, Anion Gap 10, Blood Urea Nitrogen 50H, Creatinine 6.3H, Estimat Glomerular Filtration Rate 9.0, Glucose Level 95, Calcium Level 7.0L, Phosphorus Level 4.8, Magnesium Level 2.3, Total Bilirubin 0.3, Aspartate Amino Transf (AST/SGOT) 22, Alanine Aminotransferase (ALT/SGPT) 28, Alkaline Phosphatase 281H, Troponin I 0.002, Total Protein 6.5, Albumin 1.5L, Globulin 5.0, Albumin/Globulin Ratio 0.3L Height (Feet): 5 Height (Inches): 8.00 Weight (Pounds): 115 General Appearance: no apparent distress, cachetic EENT: PERRL/EOMI Neck: non-tender, normal alignment, supple Cardiovascular: normal peripheral pulses, normal rate, regular rhythm Respiratory/Chest: chest wall non-tender, lungs clear, normal breath sounds, no respiratory distress, no accessory muscle use, other - tunneled cath Abdomen: normal bowel sounds, non tender, soft, no organomegaly, no mass Edema: no edema noted Arm (L), no edema noted Arm (R), no edema noted Leg (L), no edema noted Leg (R), no edema noted Pedal (L), no edema noted Pedal (R), no edema noted Generalized Michael Coleman MD Oct 07, 2018 10:36
[2018-10-07 12:00] VITALS: BP 121/75
--- NOTE | 2018-10-07 13:17 | General Progress Note ---
Assessment/Plan Status: stable Assessment/Plan #. Anemia of kidney disease -- anemia panel reviewed, has end-stage renal disease, status post missed dialysis via PermCath. --> transfuse on prn basis, if hgb <7 --> no evidence for hemolysis noted --> Do not recommend iron at this time --> Cont po folic acid daily --> HD on permacath #. Thrombocytopenia due to underlying Hepatitis C. has been chronic --> check afp level, and trend plts as needed --> peripheral smear reviewed --> on abx as per ID --> ok for ppx if plt >50k w/ wither heparin or lovenox --> Transfuse if Plt < 20k and fever, or if Plt < 10k without fever #. Leukocytosis likely due to infection. --> trend and monitor wbc for improvement --> Remains on IV abx #. Left thigh wound, imaging at [facility] reviewed. No evidence of abscess. ==> on abx #. IV drug use. #. Homelessness. #. Systemic inflammatory response syndrome. #. Hypothyroidism. #. Hep C #. ESRD on hd 3x a week GREATLY APPRECIATE CONSULTATION. Subjective Date patient seen: Oct 07, 2018 Hematologic/Lymphatic: Reports: anemia Allergies: Coded Allergies: No Known Allergies (Unverified , 10/04/18) All Systems: reviewed and negative except above Subjective Pt awake and alert. No acute events. Hgb at 7.1, plan for blood tx. Objective Last 24 Hour Vital Signs Date Time Temp Pulse Resp B/P (MAP) Pulse Ox O2 Delivery O2 Flow Rate FiO2 10/07/18 09:58 65 117/67 (84) 10/07/18 09:00 65 117/67 10/07/18 09:00 Room Air 10/07/18 08:00 97.1 69 16 115/52 (73) 95 10/07/18 04:00 96.2 67 16 125/70 (88) 95 10/07/18 00:00 98.0 70 16 118/61 (80) 97 10/06/18 21:00 Room Air 10/06/18 20:49 72 122/65 10/06/18 20:00 99.7 72 16 122/65 (84) 99 Intake and Output 10/06/18 10/07/18 19:00 07:00 Intake Total 370 ml 60 ml Output Total 350 ml 200 ml Balance 20 ml -140 ml Intake Oral 270 ml IV Total 100 ml 60 ml Output Urine Total 350 ml 200 ml Laboratory Tests 10/07/18 05:04: White Blood Count 11.7H, Red Blood Count 2.71L, Hemoglobin 7.1L, Hematocrit 22.7L, Mean Corpuscular Volume 84, Mean Corpuscular Hemoglobin 26.0L, Mean Corpuscular Hemoglobin Concent 31.1L, Red Cell Distribution Width 14.5, Platelet Count 120L, Mean Platelet Volume 6.7, Neutrophils (%) (Auto) , Lymphocytes (%) (Auto) , Monocytes (%) (Auto) , Eosinophils (%) (Auto) , Basophils (%) (Auto) , Differential Total Cells Counted 100, Neutrophils % ( Manual) 81H, Lymphocytes % (Manual) 15L, Monocytes % (Manual) 3, Eosinophils % ( Manual) 1, Basophils % (Manual) 0, Band Neutrophils 0, Platelet Estimate DecreasedL, Platelet Morphology Normal, Hypochromasia 2+, Anisocytosis 1+, Sodium Level 132L, Potassium Level 5.0, Chloride Level 97L, Carbon Dioxide Level 26, Anion Gap 10, Blood Urea Nitrogen 50H, Creatinine 6.3H, Estimat Glomerular Filtration Rate 9.0, Glucose Level 95, Calcium Level 7.0L, Phosphorus Level 4.8, Magnesium Level 2.3, Total Bilirubin 0.3, Aspartate Amino Transf (AST/SGOT) 22, Alanine Aminotransferase (ALT/SGPT) 28, Alkaline Phosphatase 281H, Troponin I 0.002, Total Protein 6.5, Albumin 1.5L, Globulin 5.0, Albumin/Globulin Ratio 0.3L Height (Feet): 5 Height (Inches): 8.00 Weight (Pounds): 115 Objective PHYSICAL EXAMINATION: GENERAL: Shows to be an elderly cachectic-looking gentleman in no respiratory distress, although constantly coughs. NECK: Supple. No jugular venous distention. LUNGS: Clear to auscultation. CARDIAC: Regular rhythm. A holosystolic regurgitant murmur is noted. ABDOMEN: Soft and nontender. Positive bowel sounds. EXTREMITIES: There is no clubbing, no cyanosis. There is no edema. He has extensive ischemic changes in the skin in the inner thigh on both legs with eschar formation. Gordo Jang MD Oct 07, 2018 13:17
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
[2018-10-07] MEDS: Norco 5mg/325mg tab ORAL PRN (13:55)
--- NOTE | 2018-10-07 14:25 | Infectious Diseases Prog Note ---
Assessment/Plan Assessment/Plan ASSESSMENT AND PLAN: 1. sepsis, possible gram + bacteremia, ? hd line infection, left LE wound with cellulitis, right leg wound, leukocytosis, sirs hx of left LE/hip abscess, s/p I/D - vancomycin and cefepime - await ID of gram + organism, surveillance blood cultures negative, echo without vegetation - leukocytosis and cellulitis better - wound care per surgery, no debridement for now - monitor labs and wbc count 2. The patient has end-stage renal disease, on hemodialysis. 3. hypothyroidism - he is on levothyroxine. 4. Anemia 5. Thrombocytopenia. 6. Hepatitis C infection. 7. Hepatocellular disease. 8. Failure to thrive. 9. End-stage renal disease, hemodialysis. 10. Noncompliance with dialysis. 11. No history of hypertension or diabetes. 12. History of abscess status post incision and drainage. 13. No known drug allergies.. 14. Social positive for intravenous drug abuse. 15. Family history is Noncontributory. 16. Case discussed with RN. 17. Case discussed with primary consultants. 18. MAR was noted. 19. Notes and records were noted. 20. Orders were entered. Subjective Constitutional: Reports: fatigue; Denies: fever HEENT: Denies: congestion Respiratory: Denies: shortness of breath Cardiovascular: Denies: chest pain Gastrointestinal/Abdominal: Denies: nausea, vomiting, diarrhea Genitourinary: Reports: other - no giron, + hd Psychiatric: Denies: depression Skin: Denies: rash Hematologic: Denies: bleeding Musculoskeletal: Denies: pain Allergies: Coded Allergies: No Known Allergies (Unverified , 10/04/18) Objective Vital Signs Last 24 Hour Vital Signs Date Time Temp Pulse Resp B/P (MAP) Pulse Ox O2 Delivery O2 Flow Rate FiO2 10/07/18 12:00 97.9 66 16 121/75 (90) 97 10/07/18 09:58 65 117/67 (84) 10/07/18 09:00 65 117/67 10/07/18 09:00 Room Air 10/07/18 08:00 97.1 69 16 115/52 (73) 95 10/07/18 04:00 96.2 67 16 125/70 (88) 95 10/07/18 00:00 98.0 70 16 118/61 (80) 97 10/06/18 21:00 Room Air 10/06/18 20:49 72 122/65 10/06/18 20:00 99.7 72 16 122/65 (84) 99 Height (Feet): 5 Height (Inches): 8.00 Weight (Pounds): 119 General Appearance: no acute distress HEENT: normocephalic, atraumatic, anicteric, mucous membranes moist Respiratory/Chest: lungs clear, normal breath sounds, no respiratory distress, no accessory muscle use Cardiovascular: normal rate, regular rhythm, no gallop/murmur, no JVD Abdomen: normal bowel sounds, soft, non tender, no organomegaly, non distended Genitourinary: other - no giron Extremities: no cyanosis Skin: other - wounds left leg and thigh without chane, less cellulitis, right leg wound noted, no cellulitis right leg Neurologic/Psychiatric: tie in hand II-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 There is some atelectasis at the right lung base. The lungs and pleural spaces are otherwise clear. The heart size is upper limits of normal. Aorta is tortuous and calcified. Upper mediastinum is unremarkable Impression: Minimal right basilar atelectasis No acute process otherwise Tunneled dialysis catheter Microbiology Date/Time Source Procedure Growth Status 10/05/18 05:50 Blood Blood Culture - Preliminary NO GROWTH AFTER 48 HOURS Resulted 10/05/18 05:40 Blood Blood Culture - Preliminary NO GROWTH AFTER 48 HOURS Resulted 10/04/18 21:45 Blood Blood Culture - Preliminary Resulted 10/04/18 21:30 Blood Blood Culture - Preliminary NO GROWTH AFTER 48 HOURS Resulted 10/04/18 21:15 Nasal Nares MRSA Culture - Final NO METHICILLIN RESISTANT STAPH AUREUS... Complete 10/05/18 08:30 Urine,Clean Catch Urine Culture - Preliminary NO GROWTH AFTER 24 HOURS Resulted 10/05/18 21:00 Rectum VRE Culture - Final NO VANCOMYCIN RESISTANT ENTEROCOCCUS ... Complete 10/04/18 21:15 Rectum - Final NO CARBAPENEM-RESISTANT ENTEROBACTERI... Complete Laboratory Tests Test 10/07/18 05:04 White Blood Count 11.7 K/UL (4.8-10.8) H Red Blood Count 2.71 M/UL (4.70-6.10) L Hemoglobin 7.1 G/DL (14.2-18.0) L Hematocrit 22.7 % (42.0-52.0) L Mean Corpuscular Volume 84 FL (80-99) Mean Corpuscular Hemoglobin 26.0 PG (27.0-31.0) L Mean Corpuscular Hemoglobin Concent 31.1 G/DL (32.0-36.0) L Red Cell Distribution Width 14.5 % (11.6-14.8) Platelet Count 120 K/UL (150-450) L Mean Platelet Volume 6.7 FL (6.5-10.1) Neutrophils (%) (Auto) % (45.0-75.0) Lymphocytes (%) (Auto) % (20.0-45.0) Monocytes (%) (Auto) % (1.0-10.0) Eosinophils (%) (Auto) % (0.0-3.0) Basophils (%) (Auto) % (0.0-2.0) Differential Total Cells Counted 100 Neutrophils % (Manual) 81 % (45-75) H Lymphocytes % (Manual) 15 % (20-45) L Monocytes % (Manual) 3 % (1-10) Eosinophils % (Manual) 1 % (0-3) Basophils % (Manual) 0 % (0-2) Band Neutrophils 0 % (0-8) Platelet Estimate Decreased L Platelet Morphology Normal Hypochromasia 2+ Anisocytosis 1+ Sodium Level 132 MMOL/L (136-145) L Potassium Level 5.0 MMOL/L (3.5-5.1) Chloride Level 97 MMOL/L (98-107) L Carbon Dioxide Level 26 MMOL/L (21-32) Anion Gap 10 mmol/L (5-15) Blood Urea Nitrogen 50 mg/dL (7-18) H Creatinine 6.3 MG/DL (0.55-1.30) H Estimat Glomerular Filtration Rate 9.0 mL/min (>60) Glucose Level 95 MG/DL (74-106) Calcium Level 7.0 MG/DL (8.5-10.1) L Phosphorus Level 4.8 MG/DL (2.5-4.9) Magnesium Level 2.3 MG/DL (1.8-2.4) Total Bilirubin 0.3 MG/DL (0.2-1.0) Aspartate Amino Transf (AST/SGOT) 22 U/L (15-37) Alanine Aminotransferase (ALT/SGPT) 28 U/L (12-78) Alkaline Phosphatase 281 U/L (46-116) H Troponin I 0.002 ng/mL (0.000-0.056) Total Protein 6.5 G/DL (6.4-8.2) Albumin 1.5 G/DL (3.4-5.0) L Globulin 5.0 g/dL Albumin/Globulin Ratio 0.3 (1.0-2.7) L Current Medications Medications (Trade) Dose Ordered Sig/Mary Kay Route PRN Reason Start Time Stop Time Status Last Admin Dose Admin Acetaminophen (Tylenol) 650 mg Q6H PRN ORAL Mild Pain/Temp > 100.5 10/04/18 23:30 11/03/18 23:29 Acetaminophen/ Hydrocodone Bitart (Brokaw 5/325) 1 tab Q4H PRN ORAL Severe Pain (Pain Scale 7-10) 10/07/18 10:30 10/11/18 23:29 10/07/18 13:55 Carvedilol (Coreg) 3.125 mg EVERY 12 HOURS ORAL 10/06/18 21:00 11/05/18 20:59 10/06/18 20:49 Cefepime HCl 1 gm/ Dextrose 50 ml @ 100 mls/hr Q24H IVPB 10/05/18 15:00 10/12/18 14:59 10/06/18 14:31 Docusate Sodium (Colace) 100 mg THREE TIMES A DAY ORAL 10/05/18 13:00 11/04/18 12:59 Epoetin David (Procrit (for ESRD on dialysis)) 10,000 units THREE TIMES A WEEK SUBQ 10/06/18 09:00 11/05/18 08:59 Folic Acid (Folate) 3 mg DAILY ORAL 10/05/18 11:04 11/04/18 11:03 10/07/18 10:36 Heparin Sodium (Porcine) (Heparin 5000 units/ml) 5,000 units EVERY 12 HOURS SUBQ 10/05/18 09:00 11/04/18 08:59 Levothyroxine Sodium (Synthroid) 25 mcg DAILY@0630 ORAL 10/06/18 06:30 1/4/19 06:29 10/07/18 06:18 Mirtazapine (Remeron) 15 mg BEDTIME ORAL 10/07/18 21:00 11/06/18 20:59 Ondansetron HCl (Zofran) 4 mg Q4HR PRN IVP Nausea & Vomiting 10/04/18 23:30 11/03/18 23:29 Pantoprazole (Protonix) 40 mg DAILY ORAL 10/05/18 11:02 11/04/18 11:01 10/07/18 09:49 Sevelamer Carbonate (Renvela) 1,600 mg THREE TIMES A DAY ORAL 10/06/18 18:00 11/04/18 12:59 10/07/18 13:49 Vancomycin HCl (Vanco rx to dose) 1 ea DAILY PRN MISC Per rx protocol 10/04/18 23:30 11/03/18 23:29 Vitamin B Complex/ Vit C/Folic Acid (Nephrovite) 1 tab DAILY ORAL 10/06/18 09:00 11/05/18 08:59 10/07/18 09:50 Ana De La Cruz MD Oct 07, 2018 14:25
[2018-10-07] MEDS ORDERED: Tubing IV Secondary IV ONE (15:09)
--- NOTE | 2018-10-07 19:15 | Cardiology Progress Note ---
Assessment/Plan Assessment/Plan 1. Cardiomyopathy, likely ischemic based, no segmental wall motion abnormalities. 2. Congestive heart failure, acute on chronic systolic. 3. History of hepatitis C. 4. Questionable history of liver cancer per patient. 5. End-stage renal disease, started on hemodialysis. 6. Medication/dialysis nonadherence. 7. Question coronary disease history. 8. Tobacco use disorder. 9. History of intravenous drug abuse. 10. Cirrhosis of the liver by ultrasound. 11. Area of increased hepatic echogenicity in the liver. trop neg echo noted on coreg as o fyet k bit elevated not sure if safe to give acei now due to k will need to d/w dr flanagan lower k bath Subjective Cardiovascular: Denies: chest pain Respiratory: Denies: shortness of breath Gastrointestinal/Abdominal: Denies: abdominal pain Genitourinary: Denies: burning Subjective not wnat tot talk today Objective Last 24 Hour Vital Signs Date Time Temp Pulse Resp B/P (MAP) Pulse Ox O2 Delivery O2 Flow Rate FiO2 10/07/18 12:00 97.9 66 16 121/75 (90) 97 10/07/18 09:58 65 117/67 (84) 10/07/18 09:00 65 117/67 10/07/18 09:00 Room Air 10/07/18 08:00 97.1 69 16 115/52 (73) 95 10/07/18 04:00 96.2 67 16 125/70 (88) 95 10/07/18 00:00 98.0 70 16 118/61 (80) 97 10/06/18 21:00 Room Air 10/06/18 20:49 72 122/65 10/06/18 20:00 99.7 72 16 122/65 (84) 99 General Appearance: no apparent distress Cardiovascular: normal rate Respiratory/Chest: lungs clear Abdomen: normal bowel sounds, non tender, soft Extremities: no swelling Intake and Output 10/06/18 10/07/18 19:00 07:00 Intake Total 370 ml 60 ml Output Total 350 ml 200 ml Balance 20 ml -140 ml Intake Oral 270 ml IV Total 100 ml 60 ml Output Urine Total 350 ml 200 ml Laboratory Tests Test 10/07/18 05:04 White Blood Count 11.7 K/UL (4.8-10.8) H Red Blood Count 2.71 M/UL (4.70-6.10) L Hemoglobin 7.1 G/DL (14.2-18.0) L Hematocrit 22.7 % (42.0-52.0) L Mean Corpuscular Volume 84 FL (80-99) Mean Corpuscular Hemoglobin 26.0 PG (27.0-31.0) L Mean Corpuscular Hemoglobin Concent 31.1 G/DL (32.0-36.0) L Red Cell Distribution Width 14.5 % (11.6-14.8) Platelet Count 120 K/UL (150-450) L Mean Platelet Volume 6.7 FL (6.5-10.1) Neutrophils (%) (Auto) % (45.0-75.0) Lymphocytes (%) (Auto) % (20.0-45.0) Monocytes (%) (Auto) % (1.0-10.0) Eosinophils (%) (Auto) % (0.0-3.0) Basophils (%) (Auto) % (0.0-2.0) Differential Total Cells Counted 100 Neutrophils % (Manual) 81 % (45-75) H Lymphocytes % (Manual) 15 % (20-45) L Monocytes % (Manual) 3 % (1-10) Eosinophils % (Manual) 1 % (0-3) Basophils % (Manual) 0 % (0-2) Band Neutrophils 0 % (0-8) Platelet Estimate Decreased L Platelet Morphology Normal Hypochromasia 2+ Anisocytosis 1+ Sodium Level 132 MMOL/L (136-145) L Potassium Level 5.0 MMOL/L (3.5-5.1) Chloride Level 97 MMOL/L (98-107) L Carbon Dioxide Level 26 MMOL/L (21-32) Anion Gap 10 mmol/L (5-15) Blood Urea Nitrogen 50 mg/dL (7-18) H Creatinine 6.3 MG/DL (0.55-1.30) H Estimat Glomerular Filtration Rate 9.0 mL/min (>60) Glucose Level 95 MG/DL (74-106) Calcium Level 7.0 MG/DL (8.5-10.1) L Phosphorus Level 4.8 MG/DL (2.5-4.9) Magnesium Level 2.3 MG/DL (1.8-2.4) Total Bilirubin 0.3 MG/DL (0.2-1.0) Aspartate Amino Transf (AST/SGOT) 22 U/L (15-37) Alanine Aminotransferase (ALT/SGPT) 28 U/L (12-78) Alkaline Phosphatase 281 U/L (46-116) H Troponin I 0.002 ng/mL (0.000-0.056) Total Protein 6.5 G/DL (6.4-8.2) Albumin 1.5 G/DL (3.4-5.0) L Globulin 5.0 g/dL Albumin/Globulin Ratio 0.3 (1.0-2.7) L Microbiology Date/Time Source Procedure Growth Status 10/05/18 05:50 Blood Blood Culture - Preliminary NO GROWTH AFTER 48 HOURS Resulted 10/05/18 05:40 Blood Blood Culture - Preliminary NO GROWTH AFTER 48 HOURS Resulted 10/04/18 21:45 Blood Blood Culture - Preliminary Resulted 10/04/18 21:30 Blood Blood Culture - Preliminary NO GROWTH AFTER 48 HOURS Resulted 10/04/18 21:15 Nasal Nares MRSA Culture - Final NO METHICILLIN RESISTANT STAPH AUREUS... Complete 10/05/18 08:30 Urine,Clean Catch Urine Culture - Preliminary NO GROWTH AFTER 24 HOURS Resulted 10/05/18 21:00 Rectum VRE Culture - Final NO VANCOMYCIN RESISTANT ENTEROCOCCUS ... Complete 10/04/18 21:15 Rectum - Final NO CARBAPENEM-RESISTANT ENTEROBACTERI... Complete Arturo Lai MD Oct 07, 2018 19:15
[2018-10-07 21:51] VITALS: BP 138/78
[2018-10-08] MEDS: Levothyroxine 25mcg tab ORAL SCH (06:09)
--- NOTE | 2018-10-08 06:57 | General Progress Note ---
Assessment/Plan Assessment/Plan #. Anemia of kidney disease -- anemia panel reviewed, has end-stage renal disease, status post missed dialysis via PermCath. --> transfuse on prn basis, if hgb <7 --> no evidence for hemolysis noted --> Do not recommend iron at this time --> Cont po folic acid daily --> HD on permacath --> getting epogen since hd and esrd, also vit b/folic acid --> hemoglobin electrophoresis is pending (SICKLE CELL SCREEN IS PENDING) #. Thrombocytopenia due to underlying Hepatitis C. has been chronic --> check afp level, and trend plts as needed --> peripheral smear reviewed --> on abx as per ID --> ok for ppx if plt >50k w/ wither heparin --> Transfuse if Plt < 20k and fever, or if Plt < 10k without fever #. Leukocytosis likely due to infection. --> trend and monitor wbc for improvement --> Remains on IV abx #. Left thigh wound, imaging at [facility] reviewed. No evidence of abscess. ==> on abx #. IV drug use. #. Homelessness. #. Systemic inflammatory response syndrome. #. Hypothyroidism. #. Hep C #. ESRD on hd 3x a week GREATLY APPRECIATE CONSULTATION. Subjective Constitutional: Denies: no symptoms, chills, diaphoresis, fever, malaise, weakness, other Cardiovascular: Denies: no symptoms, chest pain, edema, irregular heart rate, lightheadedness, palpitations, syncope, other Respiratory: Denies: no symptoms, cough, orthopnea, shortness of breath, SOB with excertion, SOB at rest, sputum, stridor, wheezing, other Genitourinary: Denies: no symptoms, burning, discharge, frequency, flank pain, hematuria, incontinence, pain, urgency, other Neurologic/Psychiatric: Denies: no symptoms, anxiety, depressed, emotional problems, headache, numbness, paresthesia, pre-existing deficit, seizure, tingling, tremors, weakness, other Endocrine: Denies: no symptoms, excessive sweating, flushing, intolerance to cold, intolerance to heat, increased hunger, increased thirst, increased urine, unexplained weight gain, unexplained weight loss, other Allergies: Coded Allergies: No Known Allergies (Unverified , 10/04/18) Subjective aggressive this am, plan for hd Objective Last 24 Hour Vital Signs Date Time Temp Pulse Resp B/P (MAP) Pulse Ox O2 Delivery O2 Flow Rate FiO2 10/07/18 23:18 Room Air 10/07/18 21:52 73 138/78 10/07/18 21:51 97.5 18 138/78 (98) 97 10/07/18 12:00 97.9 66 16 121/75 (90) 97 10/07/18 09:58 65 117/67 (84) 10/07/18 09:00 65 117/67 10/07/18 09:00 Room Air 10/07/18 08:00 97.1 69 16 115/52 (73) 95 Intake and Output 10/07/18 10/08/18 19:00 07:00 Intake Total 1180 ml 240 ml Output Total 600 ml 400 ml Balance 580 ml -160 ml Intake Oral 1180 ml 240 ml Output Urine Total 600 ml 400 ml # Voids 3 1 Height (Feet): 5 Height (Inches): 8.00 Weight (Pounds): 119 General Appearance: no apparent distress Neck: normal alignment Objective PHYSICAL EXAMINATION: GENERAL: elderly cachectic-looking gentleman in no respiratory distress. NECK: Supple. No jugular venous distention. LUNGS: Clear to auscultation. Less coughing. CARDIAC: Regular rhythm. A holosystolic regurgitant murmur is noted. ABDOMEN: Soft and nontender. ++ bowel sounds. EXTREMITIES: There is no clubbing, no cyanosis. There is no edema. He has extensive ischemic changes in the skin in the inner thigh on both legs with eschar formation. Gordo Jang MD Oct 08, 2018 06:57
[2018-10-08] MEDS: Docusate 100mg cap ORAL SCH ×3 (09:00→17:11)
[2018-10-08] MEDS: Heparin 5000 units/ml inj SUBQ SCH ×2 (09:00→21:00)
[2018-10-08] MEDS: Epogen (for ESRD on dialysis) SUBQ SCH ×2 (09:00→23:26)
[2018-10-08] MEDS: Nephrovite tab (Rena-Vite) ORAL SCH (09:38)
[2018-10-08] MEDS: Norco 5mg/325mg tab ORAL PRN (09:45)
[2018-10-08 10:33] LABS: HEMATOCRIT 23.5 % (42.0-52.0); HEMOGLOBIN 7.3 G/DL (14.2-18.0); MEAN CORPUSCULAR VOLUME 83 FL (80-99); PLATELET COUNT 136 K/UL (150-450); RED BLOOD COUNT 2.83 M/UL (4.70-6.10); RED CELL DISTRIBUTION WIDTH 14.5 % (11.6-14.8); WHITE BLOOD COUNT 10.5 K/UL (4.8-10.8)
--- NOTE | 2018-10-08 10:40 | Nephrology Progress Note ---
Assessment/Plan Problem List: (1) Cardiomyopathy (2) ESRD on dialysis (3) Bacteremia (4) Homeless (5) Leukocytosis Assessment ESRD- Missed HD Cardiomyopathy Anemia of CKD Hyperkalemia Leukocytosis, ? Line infectio FTT (failure to thrive) in adult- malnutrition Homeless Plan Plan: Iron- stop IV Iron as ferritin is over 1500 Folate- po Dialysis as needed, due today 10/08 Phos binders 2D echo Septal hypokinesis.mid to distal Inferior wall hypokinesis Left ventricular ejection fraction estimated to be 40%. blood cultures per orders Subjective ROS Limited/Unobtainable: No Constitutional: Reports: malaise Objective Objective Last 24 Hour Vital Signs Date Time Temp Pulse Resp B/P (MAP) Pulse Ox O2 Delivery O2 Flow Rate FiO2 10/08/18 09:00 73 138/78 10/07/18 23:18 Room Air 10/07/18 21:52 73 138/78 10/07/18 21:51 97.5 18 138/78 (98) 97 10/07/18 12:00 97.9 66 16 121/75 (90) 97 Intake and Output 10/07/18 10/08/18 18:59 06:59 Intake Total 1180 ml 240 ml Output Total 600 ml 400 ml Balance 580 ml -160 ml Intake Oral 1180 ml 240 ml Output Urine Total 600 ml 400 ml # Voids 3 1 Laboratory Tests 10/08/18 10:00: White Blood Count 10.5, Red Blood Count 2.83L, Hemoglobin 7.3L, Hematocrit 23.5L , Mean Corpuscular Volume 83, Mean Corpuscular Hemoglobin 25.9L, Mean Corpuscular Hemoglobin Concent 31.2L, Red Cell Distribution Width 14.5, Platelet Count 136L, Mean Platelet Volume 6.8, Neutrophils (%) (Auto) , Lymphocytes (%) (Auto) , Monocytes (%) (Auto) , Eosinophils (%) (Auto) , Basophils (%) (Auto) , Neutrophils % (Manual) [Pending], Lymphocytes % (Manual) [Pending], Platelet Estimate [Pending], Platelet Morphology [Pending], Hemoglobin A [Pending], Hemoglobin A2 [Pending], Hemoglobin C [Pending], Hemoglobin F () [Pending], Hemoglobin S [Pending], Variant Hemoglobin [ Pending], Hemoglobin Electrophoresis Interp [Pending], Hemoglobin Interpretation [Pending], Hemoglobin Solubility [Pending], Sodium Level [Pending ], Potassium Level [Pending], Chloride Level [Pending], Carbon Dioxide Level [ Pending], Blood Urea Nitrogen [Pending], Creatinine [Pending], Estimat Glomerular Filtration Rate [Pending], Glucose Level [Pending], Calcium Level [ Pending], Total Bilirubin [Pending], Aspartate Amino Transf (AST/SGOT) [Pending] , Alanine Aminotransferase (ALT/SGPT) [Pending], Alkaline Phosphatase [Pending] , Total Protein [Pending], Albumin [Pending], Globulin [Pending], Alpha Fetoprotein [Pending], Random Vancomycin Level [Pending] Height (Feet): 5 Height (Inches): 8.00 Weight (Pounds): 119 General Appearance: no apparent distress Objective no change David Meyers MD Oct 08, 2018 10:40
[2018-10-08] MEDS: Lisinopril 2.5mg tab ORAL SCH (10:47)
[2018-10-08 10:56] LABS: ALANINE AMINOTRANSFERASE 22 U/L (12-78); ALBUMIN 1.6 G/DL (3.4-5.0); ALBUMIN/GLOBULIN RATIO 0.3 (1.0-2.7); ALKALINE PHOSPHATASE 262 U/L (46-116); ANION GAP 9 mmol/L (5-15); ASPARTATE AMINO TRANSFERASE 20 U/L (15-37); BILIRUBIN,TOTAL 0.4 MG/DL (0.2-1.0); BLOOD UREA NITROGEN 68 mg/dL (7-18); CALCIUM 7.1 MG/DL (8.5-10.1); CARBON DIOXIDE 23 MMOL/L (21-32); CHLORIDE 97 MMOL/L (98-107); CREATININE 7.4 MG/DL (0.55-1.30); POTASSIUM 5.6 MMOL/L (3.5-5.1); SODIUM 129 MMOL/L (136-145)
[2018-10-08 12:00] VITALS: BP 124/73
--- NOTE | 2018-10-08 12:10 | General Surgery Progress Note ---
General Surgery-Progress Note Subjective Additional Comments receiving HD. comfortable. cellulitis stable Objective Last 24 Hour Vital Signs Date Time Temp Pulse Resp B/P (MAP) Pulse Ox O2 Delivery O2 Flow Rate FiO2 10/08/18 10:47 138/78 10/08/18 10:15 97.5 10/08/18 09:00 73 138/78 10/07/18 23:18 Room Air 10/07/18 21:52 73 138/78 10/07/18 21:51 97.5 18 138/78 (98) 97 I&O Intake and Output 10/07/18 10/08/18 18:59 06:59 Intake Total 1180 ml 240 ml Output Total 600 ml 400 ml Balance 580 ml -160 ml Intake Oral 1180 ml 240 ml Output Urine Total 600 ml 400 ml # Voids 3 1 Dressing: dry Wound: clean, dry Drains: none Cardiovascular: RSR Respiratory: clear Abdomen: soft, flat, non-tender, present bowel sounds Extremities: other Laboratory Tests Test 10/08/18 10:00 White Blood Count 10.5 K/UL (4.8-10.8) Red Blood Count 2.83 M/UL (4.70-6.10) L Hemoglobin 7.3 G/DL (14.2-18.0) L Hematocrit 23.5 % (42.0-52.0) L Mean Corpuscular Volume 83 FL (80-99) Mean Corpuscular Hemoglobin 25.9 PG (27.0-31.0) L Mean Corpuscular Hemoglobin Concent 31.2 G/DL (32.0-36.0) L Red Cell Distribution Width 14.5 % (11.6-14.8) Platelet Count 136 K/UL (150-450) L Mean Platelet Volume 6.8 FL (6.5-10.1) Neutrophils (%) (Auto) % (45.0-75.0) Lymphocytes (%) (Auto) % (20.0-45.0) Monocytes (%) (Auto) % (1.0-10.0) Eosinophils (%) (Auto) % (0.0-3.0) Basophils (%) (Auto) % (0.0-2.0) Differential Total Cells Counted 100 Neutrophils % (Manual) 74 % (45-75) Lymphocytes % (Manual) 15 % (20-45) L Monocytes % (Manual) 7 % (1-10) Eosinophils % (Manual) 2 % (0-3) Basophils % (Manual) 1 % (0-2) Band Neutrophils 1 % (0-8) Platelet Estimate Decreased L Platelet Morphology Normal Hypochromasia 2+ Poikilocytosis 1+ Ovalocytes Occasional Hemoglobin A Pending Hemoglobin A2 Pending Hemoglobin C Pending Hemoglobin F () Pending Hemoglobin S Pending Variant Hemoglobin Pending Hemoglobin Electrophoresis Interp Pending Hemoglobin Interpretation Pending Hemoglobin Solubility Pending Sodium Level 129 MMOL/L (136-145) L Potassium Level 5.6 MMOL/L (3.5-5.1) H Chloride Level 97 MMOL/L (98-107) L Carbon Dioxide Level 23 MMOL/L (21-32) Anion Gap 9 mmol/L (5-15) Blood Urea Nitrogen 68 mg/dL (7-18) H Creatinine 7.4 MG/DL (0.55-1.30) H Estimat Glomerular Filtration Rate 7.5 mL/min (>60) Glucose Level 96 MG/DL (74-106) Calcium Level 7.1 MG/DL (8.5-10.1) L Total Bilirubin 0.4 MG/DL (0.2-1.0) Aspartate Amino Transf (AST/SGOT) 20 U/L (15-37) Alanine Aminotransferase (ALT/SGPT) 22 U/L (12-78) Alkaline Phosphatase 262 U/L (46-116) H Total Protein 6.6 G/DL (6.4-8.2) Albumin 1.6 G/DL (3.4-5.0) L Globulin 5.0 g/dL Albumin/Globulin Ratio 0.3 (1.0-2.7) L Alpha Fetoprotein Pending Random Vancomycin Level 14.0 ug/mL Plan Problems: (1) Cellulitis Assessment & Plan: Multiple wounds noted on bilateral lower extremities and arms. some self inflicted and some skin rash left lower extremity cellulitis from resolving prior I&D/infection no drainage noted mild erythema patient expressed tenderness prior to even being touched and asks for pain meds on exam no abscess noted wound stable and slowly healing patient non compliant with care of wounds as noted in history wash wound daily with NS apply skin protectant / therahoney apply non adherent dressing followed by kerlix wrap thank you will follow with recs Benyamini,Raymond Oct 08, 2018 12:10
[2018-10-08] MEDS: Vancomycin 750mg/NS 250ml IVPB SCH ×2 (13:00→15:21)
--- NOTE | 2018-10-08 14:40 | Infectious Diseases Prog Note ---
Assessment/Plan Assessment/Plan ASSESSMENT AND PLAN: 1. sepsis, 1/ alpha hemolytic streptococcus positive blood cultures likely contaminant, left LE wound with cellulitis, right leg wound, leukocytosis, sirs hx of left LE/hip abscess, s/p I/D - vancomycin and cefepime iv abx for now - can transition to oral doxycycline 100 mg bid and augmentin 500 mg q day, both for 5 days upon discharge once stable - surveillance blood cultures negative, echo without vegetation - leukocytosis and cellulitis better - wound care per surgery, no debridement for now - monitor labs and wbc count - d/w Dr. Coleman 2. The patient has end-stage renal disease, on hemodialysis. 3. hypothyroidism - he is on levothyroxine. 4. Anemia 5. Thrombocytopenia. 6. Hepatitis C infection. 7. Hepatocellular disease. 8. Failure to thrive. 9. End-stage renal disease, hemodialysis. 10. Noncompliance with dialysis. 11. No history of hypertension or diabetes. 12. History of abscess status post incision and drainage. 13. No known drug allergies.. 14. Social positive for intravenous drug abuse. 15. Family history is Noncontributory. 16. Case discussed with RN. 17. Case discussed with primary consultants. 18. MAR was noted. 19. Notes and records were noted. 20. Orders were entered. Subjective Constitutional: Reports: fatigue; Denies: fever HEENT: Denies: congestion Respiratory: Denies: shortness of breath Cardiovascular: Denies: chest pain Gastrointestinal/Abdominal: Denies: nausea, vomiting, diarrhea Genitourinary: Reports: other - no giron, + hd pt Neurologic: Denies: headache Psychiatric: Denies: depression Skin: Denies: rash Hematologic: Denies: bleeding Musculoskeletal: Denies: pain Allergies: Coded Allergies: No Known Allergies (Unverified , 10/04/18) Objective Vital Signs Last 24 Hour Vital Signs Date Time Temp Pulse Resp B/P (MAP) Pulse Ox O2 Delivery O2 Flow Rate FiO2 10/08/18 12:00 97.2 61 18 124/73 (90) 95 10/08/18 10:47 138/78 10/08/18 10:15 97.5 10/08/18 09:00 Room Air 10/08/18 09:00 73 138/78 10/07/18 23:18 Room Air 10/07/18 21:52 73 138/78 10/07/18 21:51 97.5 18 138/78 (98) 97 Height (Feet): 5 Height (Inches): 8.00 Weight (Pounds): 119 General Appearance: no acute distress HEENT: normocephalic, atraumatic, anicteric, mucous membranes moist Respiratory/Chest: lungs clear, normal breath sounds, no respiratory distress, no accessory muscle use Cardiovascular: normal rate, regular rhythm, no gallop/murmur, no JVD Abdomen: normal bowel sounds, soft, non tender, no organomegaly, non distended Genitourinary: other - no giron, no cva pain Extremities: no cyanosis Skin: no rash Neurologic/Psychiatric: shot fireman II-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 There is some atelectasis at the right lung base. The lungs and pleural spaces are otherwise clear. The heart size is upper limits of normal. Aorta is tortuous and calcified. Upper mediastinum is unremarkable Impression: Minimal right basilar atelectasis No acute process otherwise Tunneled dialysis catheter Microbiology Date/Time Source Procedure Growth Status 10/06/18 14:30 Blood Blood Culture - Preliminary NO GROWTH AFTER 24 HOURS Resulted 10/04/18 21:15 Nasal Nares MRSA Culture - Final NO METHICILLIN RESISTANT STAPH AUREUS... Complete 10/05/18 08:30 Urine,Clean Catch Urine Culture - Final NO GROWTH AFTER 48 HOURS Complete 10/05/18 21:00 Rectum VRE Culture - Final NO VANCOMYCIN RESISTANT ENTEROCOCCUS ... Complete Microbiology Date/Time Source Procedure Growth Status 10/06/18 14:30 Blood Blood Culture - Preliminary NO GROWTH AFTER 24 HOURS Resulted 10/06/18 14:15 Blood Blood Culture - Preliminary NO GROWTH AFTER 24 HOURS Resulted 10/05/18 21:00 Rectum VRE Culture - Final NO VANCOMYCIN RESISTANT ENTEROCOCCUS ... Complete Laboratory Tests Test 10/08/18 10:00 White Blood Count 10.5 K/UL (4.8-10.8) Red Blood Count 2.83 M/UL (4.70-6.10) L Hemoglobin 7.3 G/DL (14.2-18.0) L Hematocrit 23.5 % (42.0-52.0) L Mean Corpuscular Volume 83 FL (80-99) Mean Corpuscular Hemoglobin 25.9 PG (27.0-31.0) L Mean Corpuscular Hemoglobin Concent 31.2 G/DL (32.0-36.0) L Red Cell Distribution Width 14.5 % (11.6-14.8) Platelet Count 136 K/UL (150-450) L Mean Platelet Volume 6.8 FL (6.5-10.1) Neutrophils (%) (Auto) % (45.0-75.0) Lymphocytes (%) (Auto) % (20.0-45.0) Monocytes (%) (Auto) % (1.0-10.0) Eosinophils (%) (Auto) % (0.0-3.0) Basophils (%) (Auto) % (0.0-2.0) Differential Total Cells Counted 100 Neutrophils % (Manual) 74 % (45-75) Lymphocytes % (Manual) 15 % (20-45) L Monocytes % (Manual) 7 % (1-10) Eosinophils % (Manual) 2 % (0-3) Basophils % (Manual) 1 % (0-2) Band Neutrophils 1 % (0-8) Platelet Estimate Decreased L Platelet Morphology Normal Hypochromasia 2+ Poikilocytosis 1+ Ovalocytes Occasional Hemoglobin A Pending Hemoglobin A2 Pending Hemoglobin C Pending Hemoglobin F () Pending Hemoglobin S Pending Variant Hemoglobin Pending Hemoglobin Electrophoresis Interp Pending Hemoglobin Interpretation Pending Hemoglobin Solubility Pending Sodium Level 129 MMOL/L (136-145) L Potassium Level 5.6 MMOL/L (3.5-5.1) H Chloride Level 97 MMOL/L (98-107) L Carbon Dioxide Level 23 MMOL/L (21-32) Anion Gap 9 mmol/L (5-15) Blood Urea Nitrogen 68 mg/dL (7-18) H Creatinine 7.4 MG/DL (0.55-1.30) H Estimat Glomerular Filtration Rate 7.5 mL/min (>60) Glucose Level 96 MG/DL (74-106) Calcium Level 7.1 MG/DL (8.5-10.1) L Total Bilirubin 0.4 MG/DL (0.2-1.0) Aspartate Amino Transf (AST/SGOT) 20 U/L (15-37) Alanine Aminotransferase (ALT/SGPT) 22 U/L (12-78) Alkaline Phosphatase 262 U/L (46-116) H Total Protein 6.6 G/DL (6.4-8.2) Albumin 1.6 G/DL (3.4-5.0) L Globulin 5.0 g/dL Albumin/Globulin Ratio 0.3 (1.0-2.7) L Alpha Fetoprotein Pending Random Vancomycin Level 14.0 ug/mL Current Medications Medications (Trade) Dose Ordered Sig/[place] Route PRN Reason Start Time Stop Time Status Last Admin Dose Admin Acetaminophen (Tylenol) 650 mg Q6H PRN ORAL Mild Pain/Temp > 100.5 10/04/18 23:30 11/03/18 23:29 Acetaminophen/ Hydrocodone Bitart ([place] 5/325) 1 tab Q4H PRN ORAL Severe Pain (Pain Scale 7-10) 10/07/18 10:30 10/11/18 23:29 10/08/18 09:45 Carvedilol (Coreg) 3.125 mg EVERY 12 HOURS ORAL 10/06/18 21:00 11/05/18 20:59 10/07/18 21:52 Cefepime HCl 1 gm/ Dextrose 50 ml @ 100 mls/hr Q24H IVPB 10/05/18 15:00 10/12/18 14:59 10/07/18 15:06 Docusate Sodium (Colace) 100 mg THREE TIMES A DAY ORAL 10/05/18 13:00 11/04/18 12:59 Epoetin David (Procrit (for ESRD on dialysis)) 10,000 units THU-THU-[id number] SUBQ 10/08/18 21:00 11/07/18 20:59 Folic Acid (Folate) 3 mg DAILY ORAL 10/05/18 11:04 11/04/18 11:03 10/08/18 09:38 Heparin Sodium (Porcine) (Heparin 5000 units/ml) 5,000 units EVERY 12 HOURS SUBQ 10/05/18 09:00 11/04/18 08:59 Levothyroxine Sodium (Synthroid) 25 mcg DAILY@0630 ORAL 10/06/18 06:30 11/05/18 06:29 10/07/18 06:18 Lisinopril (Zestril) 5 mg DAILY ORAL 10/08/18 10:47 11/07/18 10:46 Mirtazapine (Remeron) 15 mg BEDTIME ORAL 10/07/18 21:00 11/06/18 20:59 10/07/18 21:52 Ondansetron HCl (Zofran) 4 mg Q4HR PRN IVP Nausea & Vomiting 10/04/18 23:30 11/03/18 23:29 Pantoprazole (Protonix) 40 mg DAILY ORAL 10/05/18 11:02 11/04/18 11:01 10/08/18 09:38 Sevelamer Carbonate (Renvela) 1,600 mg THREE TIMES A DAY ORAL 10/06/18 18:00 11/04/18 12:59 10/08/18 09:38 Vancomycin HCl (Vanco rx to dose) 1 ea DAILY PRN MISC Per rx protocol 10/04/18 23:30 11/03/18 23:29 Vancomycin/Sodium Chloride 250 ml @ 166.667 mls/hr ONCE IVPB 10/08/18 13:00 10/08/18 16:00 Vitamin B Complex/ Vit C/Folic Acid (Nephrovite) 1 tab DAILY ORAL 10/06/18 09:00 11/05/18 08:59 10/08/18 09:38 Ana De La Cruz MD Oct 08, 2018 14:40
--- NOTE | 2018-10-08 14:44 | General Progress Note ---
Assessment/Plan Problem List: (1) Hepatitis C ICD Codes: B19.20 - Unspecified viral hepatitis C without hepatic coma SNOMED: 83470458 (2) Anemia ICD Codes: D64.9 - Anemia, unspecified SNOMED: 575432505 (3) Dialysis patient ICD Codes: Z99.2 - Dependence on renal dialysis SNOMED: 796787920 (4) FTT (failure to thrive) in adult ICD Codes: R62.7 - Adult failure to thrive SNOMED: 770572358 (5) Cellulitis ICD Codes: L03.90 - Cellulitis, unspecified SNOMED: 559740514 Qualifiers: Qualified Codes: L03.116 - Cellulitis of left lower limb (6) Leukocytosis ICD Codes: D72.829 - Elevated white blood cell count, unspecified SNOMED: 344096819, 358792123 (7) Homeless ICD Codes: Z59.0 - Homelessness SNOMED: 19098389, 882187847 (8) Missed dialysis SNOMED: 455678040 (9) CHF (congestive heart failure) ICD Codes: I50.9 - Heart failure, unspecified SNOMED: 08478671 (10) Bacteremia ICD Codes: R78.81 - Bacteremia SNOMED: 3961227 Assessment/Plan ASSESSMENT: The patient is a 62-year-old homeless male with a history of IV drug use; hepatitis C; hepatopathy; end-stage renal disease, on dialysis via tunneled cath; and noncompliance with missed dialysis, presenting with weakness, failure to thrive, and likely infection with leukocytosis and systemic inflammatory response syndrome/sepsis PROBLEM LIST: 1. End-stage renal disease, status post missed dialysis via PermCath. 2. Anemia, acute on chronic, with evidence of iron deficiency. 3. Hepatitis C. 4. Left thigh wound, imaging at [facility] reviewed. No evidence of abscess. 5. IV drug use. 6. Homelessness. 7. Systemic inflammatory response syndrome/sepsis 8. Leukocytosis. 9. Hypothyroidism 10. GPC bacteremia, likely contaminant 11. CHF with systolic dysfunction TREATMENT PLAN: 1. Cefepime/Vanco per ID, D/W Dr. Herrera, will continue IV Abx while in house and D/C on PO 2. F/U repeat Cx's 3. HD per renal 4. Surgery recs 5. wound care 6. Monitor hemoglobin and hematocrit, transfuse PRN Hb < 7, IV iron D/C 'd 2/2 elevated ferritin, on EPO 7. F/U GI and heme recs 8. F/U cardiology recs, medical management of CHF, ischemia eval at some point 9. Social work evaluation to assist with placement. D/W SW, working with insurance plan RE: SNF placement 10. Pain control/supportive care. 11. Continue Synthroid 12. Multivitamins, thiamine, and folate. 13. DVT prophylaxis, heparin subcutaneous. 14. Diabetic renal diet. 15. The patient is a Full Code. Subjective Allergies: Coded Allergies: No Known Allergies (Unverified , 10/04/18) Subjective AFVSS, stable on RA Hb 7.3 Remained of Cx's NG [facility] [employer] notes reviewed Declines endoscopy, declines removal of tunneled cath No F/C/CP/SOB/N/V/D Objective Last 24 Hour Vital Signs Date Time Temp Pulse Resp B/P (MAP) Pulse Ox O2 Delivery O2 Flow Rate FiO2 10/08/18 12:00 97.2 61 18 124/73 (90) 95 10/08/18 10:47 138/78 10/08/18 10:15 97.5 10/08/18 09:00 Room Air 10/08/18 09:00 73 138/78 10/07/18 23:18 Room Air 10/07/18 21:52 73 138/78 10/07/18 21:51 97.5 18 138/78 (98) 97 Intake and Output 10/07/18 10/08/18 18:59 06:59 Intake Total 1180 ml 240 ml Output Total 600 ml 400 ml Balance 580 ml -160 ml Intake Oral 1180 ml 240 ml Output Urine Total 600 ml 400 ml # Voids 3 1 Laboratory Tests 10/08/18 10:00: White Blood Count 10.5, Red Blood Count 2.83L, Hemoglobin 7.3L, Hematocrit 23.5L , Mean Corpuscular Volume 83, Mean Corpuscular Hemoglobin 25.9L, Mean Corpuscular Hemoglobin Concent 31.2L, Red Cell Distribution Width 14.5, Platelet Count 136L, Mean Platelet Volume 6.8, Neutrophils (%) (Auto) , Lymphocytes (%) (Auto) , Monocytes (%) (Auto) , Eosinophils (%) (Auto) , Basophils (%) (Auto) , Differential Total Cells Counted 100, Neutrophils % ( Manual) 74, Lymphocytes % (Manual) 15L, Monocytes % (Manual) 7, Eosinophils % ( Manual) 2, Basophils % (Manual) 1, Band Neutrophils 1, Platelet Estimate DecreasedL, Platelet Morphology Normal, Hypochromasia 2+, Poikilocytosis 1+, Ovalocytes Occasional, Hemoglobin A [Pending], Hemoglobin A2 [Pending], Hemoglobin C [Pending], Hemoglobin F () [Pending], Hemoglobin S [Pending], Variant Hemoglobin [Pending], Hemoglobin Electrophoresis Interp [Pending], Hemoglobin Interpretation [Pending], Hemoglobin Solubility [Pending], Sodium Level 129L, Potassium Level 5.6H, Chloride Level 97L, Carbon Dioxide Level 23, Anion Gap 9, Blood Urea Nitrogen 68H, Creatinine 7.4H, Estimat Glomerular Filtration Rate 7.5, Glucose Level 96, Calcium Level 7.1L, Total Bilirubin 0.4, Aspartate Amino Transf (AST/SGOT) 20, Alanine Aminotransferase (ALT/SGPT) 22, Alkaline Phosphatase 262H, Total Protein 6.6, Albumin 1.6L, Globulin 5.0, Albumin/Globulin Ratio 0.3L, Alpha Fetoprotein [Pending], Random Vancomycin Level 14.0 Height (Feet): 5 Height (Inches): 8.00 Weight (Pounds): 119 General Appearance: no apparent distress, cachetic EENT: PERRL/EOMI Neck: non-tender, normal alignment, supple, normal inspection Cardiovascular: normal peripheral pulses, normal rate, regular rhythm, other - CW port Respiratory/Chest: chest wall non-tender, lungs clear, normal breath sounds, no respiratory distress, no accessory muscle use Abdomen: normal bowel sounds, non tender, soft, no organomegaly, no mass Edema: no edema noted Arm (L), no edema noted Arm (R), no edema noted Leg (L), no edema noted Leg (R), no edema noted Pedal (L), no edema noted Pedal (R), no edema noted Generalized Michael Coleman MD Oct 08, 2018 14:44
--- NOTE | 2018-10-08 16:34 | General Progress Note ---
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 - malnutrition - poor prognosis Recommendations - IV Iron - follow labs - push po - no EGD/Colon , per patient wishes - can consider HCV eradication at later date Subjective Allergies: Coded Allergies: No Known Allergies (Unverified , 10/04/18) Subjective Feels OK no new symptoms appetite poor Objective Last 24 Hour Vital Signs Date Time Temp Pulse Resp B/P (MAP) Pulse Ox O2 Delivery O2 Flow Rate FiO2 10/08/18 12:00 97.2 61 18 124/73 (90) 95 10/08/18 10:47 138/78 10/08/18 10:15 97.5 10/08/18 09:00 Room Air 10/08/18 09:00 73 138/78 10/07/18 23:18 Room Air 10/07/18 21:52 73 138/78 10/07/18 21:51 97.5 18 138/78 (98) 97 Intake and Output 10/07/18 10/08/18 19:00 07:00 Intake Total 1180 ml 240 ml Output Total 600 ml 400 ml Balance 580 ml -160 ml Intake Oral 1180 ml 240 ml Output Urine Total 600 ml 400 ml # Voids 3 1 Laboratory Tests 10/08/18 10:00: White Blood Count 10.5, Red Blood Count 2.83L, Hemoglobin 7.3L, Hematocrit 23.5L , Mean Corpuscular Volume 83, Mean Corpuscular Hemoglobin 25.9L, Mean Corpuscular Hemoglobin Concent 31.2L, Red Cell Distribution Width 14.5, Platelet Count 136L, Mean Platelet Volume 6.8, Neutrophils (%) (Auto) , Lymphocytes (%) (Auto) , Monocytes (%) (Auto) , Eosinophils (%) (Auto) , Basophils (%) (Auto) , Differential Total Cells Counted 100, Neutrophils % ( Manual) 74, Lymphocytes % (Manual) 15L, Monocytes % (Manual) 7, Eosinophils % ( Manual) 2, Basophils % (Manual) 1, Band Neutrophils 1, Platelet Estimate DecreasedL, Platelet Morphology Normal, Hypochromasia 2+, Poikilocytosis 1+, Ovalocytes Occasional, Hemoglobin A [Pending], Hemoglobin A2 [Pending], Hemoglobin C [Pending], Hemoglobin F () [Pending], Hemoglobin S [Pending], Variant Hemoglobin [Pending], Hemoglobin Electrophoresis Interp [Pending], Hemoglobin Interpretation [Pending], Hemoglobin Solubility [Pending], Sodium Level 129L, Potassium Level 5.6H, Chloride Level 97L, Carbon Dioxide Level 23, Anion Gap 9, Blood Urea Nitrogen 68H, Creatinine 7.4H, Estimat Glomerular Filtration Rate 7.5, Glucose Level 96, Calcium Level 7.1L, Total Bilirubin 0.4, Aspartate Amino Transf (AST/SGOT) 20, Alanine Aminotransferase (ALT/SGPT) 22, Alkaline Phosphatase 262H, Total Protein 6.6, Albumin 1.6L, Globulin 5.0, Albumin/Globulin Ratio 0.3L, Alpha Fetoprotein [Pending], Random Vancomycin Level 14.0 Height (Feet): 5 Height (Inches): 8.00 Weight (Pounds): 119 Objective Thin NAD NCAT supple CTA RR soft ND no edema Cara Berkowitz MD Oct 08, 2018 16:34
[2018-10-09] VITALS: BP 130/84
[2018-10-09] MEDS: Levothyroxine 25mcg tab ORAL SCH (06:29)
--- NOTE | 2018-10-09 07:32 | General Progress Note ---
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 - malnutrition - poor prognosis Recommendations - IV Iron - follow labs - push po - no EGD/Colon , per patient wishes - can consider HCV eradication at later date Subjective ROS Limited/Unobtainable: Yes Allergies: Coded Allergies: No Known Allergies (Unverified , 10/04/18) Objective Last 24 Hour Vital Signs Date Time Temp Pulse Resp B/P (MAP) Pulse Ox O2 Delivery O2 Flow Rate FiO2 10/09/18 00:00 97.2 84 18 130/84 (99) 99 10/08/18 23:25 84 130/84 10/08/18 21:00 Room Air 10/08/18 12:00 97.2 61 18 124/73 (90) 95 10/08/18 10:47 138/78 10/08/18 10:15 97.5 10/08/18 09:00 Room Air 10/08/18 09:00 73 138/78 Intake and Output 10/08/18 10/09/18 19:00 07:00 Intake Total 2600 ml 360 ml Output Total 175 ml 600 ml Balance 2425 ml -240 ml Intake Oral 600 ml 360 ml Hemodialysis 2000 ml Output Urine Total 175 ml 600 ml Laboratory Tests 10/08/18 10:00: White Blood Count 10.5, Red Blood Count 2.83L, Hemoglobin 7.3L, Hematocrit 23.5L , Mean Corpuscular Volume 83, Mean Corpuscular Hemoglobin 25.9L, Mean Corpuscular Hemoglobin Concent 31.2L, Red Cell Distribution Width 14.5, Platelet Count 136L, Mean Platelet Volume 6.8, Neutrophils (%) (Auto) , Lymphocytes (%) (Auto) , Monocytes (%) (Auto) , Eosinophils (%) (Auto) , Basophils (%) (Auto) , Differential Total Cells Counted 100, Neutrophils % ( Manual) 74, Lymphocytes % (Manual) 15L, Monocytes % (Manual) 7, Eosinophils % ( Manual) 2, Basophils % (Manual) 1, Band Neutrophils 1, Platelet Estimate DecreasedL, Platelet Morphology Normal, Hypochromasia 2+, Poikilocytosis 1+, Ovalocytes Occasional, Hemoglobin A [Pending], Hemoglobin A2 [Pending], Hemoglobin C [Pending], Hemoglobin F () [Pending], Hemoglobin S [Pending], Variant Hemoglobin [Pending], Hemoglobin Electrophoresis Interp [Pending], Hemoglobin Interpretation [Pending], Hemoglobin Solubility [Pending], Sodium Level 129L, Potassium Level 5.6H, Chloride Level 97L, Carbon Dioxide Level 23, Anion Gap 9, Blood Urea Nitrogen 68H, Creatinine 7.4H, Estimat Glomerular Filtration Rate 7.5, Glucose Level 96, Calcium Level 7.1L, Total Bilirubin 0.4, Aspartate Amino Transf (AST/SGOT) 20, Alanine Aminotransferase (ALT/SGPT) 22, Alkaline Phosphatase 262H, Total Protein 6.6, Albumin 1.6L, Globulin 5.0, Albumin/Globulin Ratio 0.3L, Alpha Fetoprotein [Pending], Random Vancomycin Level 14.0 Height (Feet): 5 Height (Inches): 8.00 Weight (Pounds): 119 General Appearance: alert EENT: normal ENT inspection Neck: supple Cardiovascular: normal rate Respiratory/Chest: decreased breath sounds Abdomen: normal bowel sounds, non tender, soft Extremities: non-tender Jonathan Dumont MD Oct 09, 2018 07:32
[2018-10-09 08:00] VITALS: BP 131/74
--- NOTE | 2018-10-09 08:14 | Pulmonology Progress Note ---
Assessment/Plan Assessment/Plan PROBLEM LIST: 1. End-stage renal disease, status post missed dialysis via PermCath. 2. Anemia, acute on chronic, with evidence of iron deficiency. 3. Hepatitis C. 4. Left thigh wound, imaging at [facility] reviewed. No evidence of abscess. 5. IV drug use. 6. Homelessness. 7. Systemic inflammatory response syndrome/sepsis 8. Leukocytosis. 9. Hypothyroidism 10. GPC bacteremia, likely contaminant 11. CHF with systolic dysfunction TREATMENT PLAN: 1. Cefepime/Vanco per ID, D/W Dr. Herrera, will continue IV Abx while in house and D/C on PO 2. F/U repeat Cx's 3. HD per renal 4. Surgery recs 5. wound care 6. Monitor hemoglobin and hematocrit, transfuse PRN Hb < 7, IV iron D/C 'd 2/2 elevated ferritin, on EPO 7. F/U GI and heme recs 8. F/U cardiology recs, medical management of CHF, ischemia eval at some point 9. Social work evaluation to assist with placement. D/W SW, working with insurance plan RE: SNF placement 10. Pain control/supportive care. 11. Continue Synthroid 12. Multivitamins, thiamine, and folate. 13. DVT prophylaxis, heparin subcutaneous. 14. Diabetic renal diet. 15. The patient is a Full Code. Subjective ROS Limited/Unobtainable: Yes Constitutional: Reports: no symptoms HEENT: Repors: no symptoms Respiratory: Reports: no symptoms Allergies: Coded Allergies: No Known Allergies (Unverified , 10/04/18) Subjective weak and ill appearing minimal po no t getting oob no cp nv or bleeding no fever Objective Last 24 Hour Vital Signs Date Time Temp Pulse Resp B/P (MAP) Pulse Ox O2 Delivery O2 Flow Rate FiO2 10/09/18 00:00 97.2 84 18 130/84 (99) 99 10/08/18 23:25 84 130/84 10/08/18 21:00 Room Air 10/08/18 12:00 97.2 61 18 124/73 (90) 95 10/08/18 10:47 138/78 10/08/18 10:15 97.5 10/08/18 09:00 Room Air 10/08/18 09:00 73 138/78 Intake and Output 10/08/18 10/09/18 19:00 07:00 Intake Total 2600 ml 360 ml Output Total 175 ml 600 ml Balance 2425 ml -240 ml Intake Oral 600 ml 360 ml Hemodialysis 2000 ml Output Urine Total 175 ml 600 ml General Appearance: cachetic Respiratory/Chest: rhonchi Cardiovascular: normal rate, regular rhythm Abdomen: soft, non tender, no organomegaly Extremities: no cyanosis Neurologic/Psychiatric: disoriented Lymphatic: no neck adenopathy Microbiology Date/Time Source Procedure Growth Status 10/06/18 14:30 Blood Blood Culture - Preliminary NO GROWTH AFTER 24 HOURS Resulted 10/06/18 14:15 Blood Blood Culture - Preliminary NO GROWTH AFTER 24 HOURS Resulted Laboratory Tests 10/08/18 10:00: White Blood Count 10.5, Red Blood Count 2.83L, Hemoglobin 7.3L, Hematocrit 23.5L , Mean Corpuscular Volume 83, Mean Corpuscular Hemoglobin 25.9L, Mean Corpuscular Hemoglobin Concent 31.2L, Red Cell Distribution Width 14.5, Platelet Count 136L, Mean Platelet Volume 6.8, Neutrophils (%) (Auto) , Lymphocytes (%) (Auto) , Monocytes (%) (Auto) , Eosinophils (%) (Auto) , Basophils (%) (Auto) , Differential Total Cells Counted 100, Neutrophils % ( Manual) 74, Lymphocytes % (Manual) 15L, Monocytes % (Manual) 7, Eosinophils % ( Manual) 2, Basophils % (Manual) 1, Band Neutrophils 1, Platelet Estimate DecreasedL, Platelet Morphology Normal, Hypochromasia 2+, Poikilocytosis 1+, Ovalocytes Occasional, Hemoglobin A [Pending], Hemoglobin A2 [Pending], Hemoglobin C [Pending], Hemoglobin F () [Pending], Hemoglobin S [Pending], Variant Hemoglobin [Pending], Hemoglobin Electrophoresis Interp [Pending], Hemoglobin Interpretation [Pending], Hemoglobin Solubility [Pending], Sodium Level 129L, Potassium Level 5.6H, Chloride Level 97L, Carbon Dioxide Level 23, Anion Gap 9, Blood Urea Nitrogen 68H, Creatinine 7.4H, Estimat Glomerular Filtration Rate 7.5, Glucose Level 96, Calcium Level 7.1L, Total Bilirubin 0.4, Aspartate Amino Transf (AST/SGOT) 20, Alanine Aminotransferase (ALT/SGPT) 22, Alkaline Phosphatase 262H, Total Protein 6.6, Albumin 1.6L, Globulin 5.0, Albumin/Globulin Ratio 0.3L, Alpha Fetoprotein 2.1, Random Vancomycin Level 14.0 Current Medications Medications (Trade) Dose Ordered Sig/Mary Kay Route PRN Reason Start Time Stop Time Status Last Admin Dose Admin Acetaminophen (Tylenol) 650 mg Q6H PRN ORAL Mild Pain/Temp > 100.5 10/04/18 23:30 11/03/18 23:29 Acetaminophen/ Hydrocodone Bitart ([place] 5/325) 1 tab Q4H PRN ORAL Severe Pain (Pain Scale 7-10) 10/07/18 10:30 10/11/18 23:29 10/08/18 09:45 Amoxicillin/ Clavulanate Potassium (Augmentin) 500 mg DAILY ORAL 10/08/18 18:30 10/15/18 18:29 10/08/18 18:49 Carvedilol (Coreg) 3.125 mg EVERY 12 HOURS ORAL 10/06/18 21:00 11/05/18 20:59 10/08/18 23:25 Docusate Sodium (Colace) 100 mg THREE TIMES A DAY ORAL 10/05/18 13:00 11/04/18 12:59 10/08/18 17:11 Doxycycline Monohydrate (Vibramycin) 100 mg Q12HR ORAL 10/08/18 21:00 10/15/18 20:59 10/08/18 23:25 Epoetin David (Procrit (for ESRD on dialysis)) 10,000 units THU-THU-THU SUBQ 10/08/18 21:00 11/07/18 20:59 10/08/18 23:26 Folic Acid (Folate) 3 mg DAILY ORAL 10/05/18 11:04 11/04/18 11:03 10/08/18 09:38 Heparin Sodium (Porcine) (Heparin 5000 units/ml) 5,000 units EVERY 12 HOURS SUBQ 10/05/18 09:00 11/04/18 08:59 Levothyroxine Sodium (Synthroid) 25 mcg DAILY@0630 ORAL 10/06/18 06:30 11/05/18 06:29 10/07/18 06:18 Lisinopril (Zestril) 5 mg DAILY ORAL 10/08/18 10:47 11/07/18 10:46 Mirtazapine (Remeron) 15 mg BEDTIME ORAL 10/07/18 21:00 11/06/18 20:59 10/08/18 23:25 Ondansetron HCl (Zofran) 4 mg Q4HR PRN IVP Nausea & Vomiting 10/04/18 23:30 11/03/18 23:29 Pantoprazole (Protonix) 40 mg DAILY ORAL 10/05/18 11:02 11/04/18 11:01 10/08/18 09:38 Sevelamer Carbonate (Renvela) 1,600 mg THREE TIMES A DAY ORAL 10/06/18 18:00 11/04/18 12:59 10/08/18 17:10 Vitamin B Complex/ Vit C/Folic Acid (Nephrovite) 1 tab DAILY ORAL 10/06/18 09:00 11/05/18 08:59 10/08/18 09:38 Saige Wilde DO Oct 09, 2018 08:14
[2018-10-09] MEDS: Lisinopril 2.5mg tab ORAL SCH (08:58)
[2018-10-09] MEDS: Heparin 5000 units/ml inj SUBQ SCH ×2 (09:00→20:45)
[2018-10-09] MEDS: Docusate 100mg cap ORAL SCH ×3 (09:01→17:44)
[2018-10-09] MEDS: Nephrovite tab (Rena-Vite) ORAL SCH (09:01)
--- NOTE | 2018-10-09 10:39 | Nephrology Progress Note ---
Assessment/Plan Problem List: (1) Cardiomyopathy (2) ESRD on dialysis (3) Bacteremia (4) Homeless (5) Leukocytosis Assessment ESRD- Missed HD Cardiomyopathy Anemia of CKD Hyperkalemia Leukocytosis, ? Line infectio FTT (failure to thrive) in adult- malnutrition Homeless Plan Iron- stop IV Iron as ferritin is over 1500 Folate- po Dialysis as needed, due today 10/08 Phos binders 2D echo Septal hypokinesis.mid to distal Inferior wall hypokinesis Left ventricular ejection fraction estimated to be 40%. blood cultures per orders Subjective ROS Limited/Unobtainable: No Constitutional: Reports: malaise Objective Objective Last 24 Hour Vital Signs Date Time Temp Pulse Resp B/P (MAP) Pulse Ox O2 Delivery O2 Flow Rate FiO2 10/09/18 09:00 Room Air 10/09/18 08:58 131/74 10/09/18 08:57 65 131/74 10/09/18 08:00 98.9 65 19 131/74 (93) 100 10/09/18 00:00 97.2 84 18 130/84 (99) 99 10/08/18 23:25 84 130/84 10/08/18 21:00 Room Air 10/08/18 12:00 97.2 61 18 124/73 (90) 95 10/08/18 10:47 138/78 Intake and Output 10/08/18 10/09/18 19:00 07:00 Intake Total 2600 ml 360 ml Output Total 175 ml 600 ml Balance 2425 ml -240 ml Intake Oral 600 ml 360 ml Hemodialysis 2000 ml Output Urine Total 175 ml 600 ml Height (Feet): 5 Height (Inches): 8.00 Weight (Pounds): 119 General Appearance: no apparent distress Objective no change David Meyers MD Oct 09, 2018 10:39
--- NOTE | 2018-10-09 13:40 | General Surgery Progress Note ---
General Surgery-Progress Note Subjective Additional Comments no acute events. comfortable. labs noted Objective Last 24 Hour Vital Signs Date Time Temp Pulse Resp B/P (MAP) Pulse Ox O2 Delivery O2 Flow Rate FiO2 10/09/18 09:00 Room Air 10/09/18 08:58 131/74 10/09/18 08:57 65 131/74 10/09/18 08:00 98.9 65 19 131/74 (93) 100 10/09/18 00:00 97.2 84 18 130/84 (99) 99 10/08/18 23:25 84 130/84 10/08/18 21:00 Room Air I&O Intake and Output 10/08/18 10/09/18 18:59 06:59 Intake Total 2600 ml 360 ml Output Total 175 ml 600 ml Balance 2425 ml -240 ml Intake Oral 600 ml 360 ml Hemodialysis 2000 ml Output Urine Total 175 ml 600 ml Dressing: dry Wound: clean Drains: none Cardiovascular: RSR Respiratory: clear Abdomen: soft, flat, non-tender, present bowel sounds Extremities: edema, no cyanosis Plan Problems: (1) Cellulitis Assessment & Plan: Multiple wounds noted on bilateral lower extremities and arms. some self inflicted and some skin rash left lower extremity cellulitis from resolving prior I&D/infection no drainage noted mild erythema patient expressed tenderness prior to even being touched and asks for pain meds on exam no abscess noted wound stable and slowly healing patient non compliant with care of wounds as noted in history wash wound daily with NS apply skin protectant / therahoney apply non adherent dressing followed by kerlix wrap thank you will follow with Raymond Gomes Oct 09, 2018 13:40
--- NOTE | 2018-10-09 15:16 | Cardiology Progress Note ---
Assessment/Plan Problem List: (1) Homeless (2) CHF (congestive heart failure) (3) Cardiomyopathy (4) ESRD on dialysis Status: stable, progressing Status Narrative Cardiomyopathy, likely nonischemic, w/ EF 40s by echo this admission. ESRD, w/ missed HD treatments Assessment/Plan Continue regular HD - last dialysis yesterday. Continue low dose coreg and lisinopril for CM. Consider ischemia evaluation if not recently done. Will d/w Dr. Lai. Subjective ROS Limited/Unobtainable: No Subjective Cardiology for Dr. Lai c/o feeling thirsty. No c/o dyspnea or pain. Objective Last 24 Hour Vital Signs Date Time Temp Pulse Resp B/P (MAP) Pulse Ox O2 Delivery O2 Flow Rate FiO2 10/09/18 09:00 Room Air 10/09/18 08:58 131/74 10/09/18 08:57 65 131/74 10/09/18 08:00 98.9 65 19 131/74 (93) 100 10/09/18 00:00 97.2 84 18 130/84 (99) 99 10/08/18 23:25 84 130/84 10/08/18 21:00 Room Air General Appearance: thin, other - disheveled appearing, thin wm EENT: PERRL/EOMI Neck: supple, no JVD Rhythm: NSR Cardiovascular: normal rate, regular rhythm, no gallop/murmur Respiratory/Chest: other - bilat scattered rhonchi Abdomen: non tender, soft, hepatomegaly Extremities: no swelling Intake and Output 10/08/18 10/09/18 18:59 06:59 Intake Total 2600 ml 360 ml Output Total 175 ml 600 ml Balance 2425 ml -240 ml Intake Oral 600 ml 360 ml Hemodialysis 2000 ml Output Urine Total 175 ml 600 ml 2D Echo: ef 40-45% moderate MR Labs Test 10/08/18 10:00 White Blood Count 10.5 K/UL (4.8-10.8) Red Blood Count 2.83 M/UL (4.70-6.10) Hemoglobin 7.3 G/DL (14.2-18.0) Hematocrit 23.5 % (42.0-52.0) Mean Corpuscular Volume 83 FL (80-99) Mean Corpuscular Hemoglobin 25.9 PG (27.0-31.0) Mean Corpuscular Hemoglobin Concent 31.2 G/DL (32.0-36.0) Red Cell Distribution Width 14.5 % (11.6-14.8) Platelet Count 136 K/UL (150-450) Mean Platelet Volume 6.8 FL (6.5-10.1) Neutrophils (%) (Auto) % (45.0-75.0) Lymphocytes (%) (Auto) % (20.0-45.0) Monocytes (%) (Auto) % (1.0-10.0) Eosinophils (%) (Auto) % (0.0-3.0) Basophils (%) (Auto) % (0.0-2.0) Differential Total Cells Counted 100 Neutrophils % (Manual) 74 % (45-75) Lymphocytes % (Manual) 15 % (20-45) Monocytes % (Manual) 7 % (1-10) Eosinophils % (Manual) 2 % (0-3) Basophils % (Manual) 1 % (0-2) Band Neutrophils 1 % (0-8) Platelet Estimate Decreased Platelet Morphology Normal Hypochromasia 2+ Poikilocytosis 1+ Ovalocytes Occasional Sodium Level 129 MMOL/L (136-145) Potassium Level 5.6 MMOL/L (3.5-5.1) Chloride Level 97 MMOL/L (98-107) Carbon Dioxide Level 23 MMOL/L (21-32) Anion Gap 9 mmol/L (5-15) Blood Urea Nitrogen 68 mg/dL (7-18) Creatinine 7.4 MG/DL (0.55-1.30) Estimat Glomerular Filtration Rate 7.5 mL/min (>60) Glucose Level 96 MG/DL (74-106) Calcium Level 7.1 MG/DL (8.5-10.1) Total Bilirubin 0.4 MG/DL (0.2-1.0) Aspartate Amino Transf (AST/SGOT) 20 U/L (15-37) Alanine Aminotransferase (ALT/SGPT) 22 U/L (12-78) Alkaline Phosphatase 262 U/L (46-116) Total Protein 6.6 G/DL (6.4-8.2) Albumin 1.6 G/DL (3.4-5.0) Globulin 5.0 g/dL Albumin/Globulin Ratio 0.3 (1.0-2.7) Alpha Fetoprotein 2.1 ng/mL (0.0-8.3) Random Vancomycin Level 14.0 ug/mL Roya Choudhury MD Oct 09, 2018 15:16
[2018-10-10 04:00] VITALS: BP 133/77
[2018-10-10] MEDS: Levothyroxine 25mcg tab ORAL SCH (05:51)
[2018-10-10 06:08] LABS: HEMATOCRIT 23.9 % (42.0-52.0); HEMOGLOBIN 7.6 G/DL (14.2-18.0); MEAN CORPUSCULAR VOLUME 83 FL (80-99); PLATELET COUNT 150 K/UL (150-450); RED BLOOD COUNT 2.86 M/UL (4.70-6.10); RED CELL DISTRIBUTION WIDTH 14.5 % (11.6-14.8); WHITE BLOOD COUNT 9.5 K/UL (4.8-10.8)
[2018-10-10 06:29] LABS: ALANINE AMINOTRANSFERASE 22 U/L (12-78); ALBUMIN 1.6 G/DL (3.4-5.0); ALBUMIN/GLOBULIN RATIO 0.3 (1.0-2.7); ALKALINE PHOSPHATASE 244 U/L (46-116); ANION GAP 9 mmol/L (5-15); ASPARTATE AMINO TRANSFERASE 23 U/L (15-37); BILIRUBIN,TOTAL 0.4 MG/DL (0.2-1.0); BLOOD UREA NITROGEN 60 mg/dL (7-18); CALCIUM 7.6 MG/DL (8.5-10.1); CARBON DIOXIDE 25 MMOL/L (21-32); CHLORIDE 97 MMOL/L (98-107); CREATININE 6.7 MG/DL (0.55-1.30); PHOSPHORUS 4.9 MG/DL (2.5-4.9); POTASSIUM 5.3 MMOL/L (3.5-5.1); SODIUM 131 MMOL/L (136-145)
--- NOTE | 2018-10-10 06:43 | General Progress Note ---
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 - malnutrition - poor prognosis Recommendations - IV Iron - follow labs - push po - no EGD/Colon , per patient wishes - can consider HCV eradication at later date Subjective ROS Limited/Unobtainable: Yes Allergies: Coded Allergies: No Known Allergies (Unverified , 10/04/18) Objective Last 24 Hour Vital Signs Date Time Temp Pulse Resp B/P (MAP) Pulse Ox O2 Delivery O2 Flow Rate FiO2 10/10/18 04:00 98.2 66 17 133/77 (95) 98 10/09/18 21:00 Room Air 10/09/18 09:00 Room Air 10/09/18 08:58 131/74 10/09/18 08:57 65 131/74 10/09/18 08:00 98.9 65 19 131/74 (93) 100 Intake and Output 10/09/18 10/10/18 19:00 07:00 Intake Total 810 ml Output Total 300 ml Balance 510 ml Intake Oral 360 ml Other 450 ml Output Urine Total 300 ml # Voids 3 Laboratory Tests 10/10/18 05:00: White Blood Count 9.5, Red Blood Count 2.86L, Hemoglobin 7.6L, Hematocrit 23.9L , Mean Corpuscular Volume 83, Mean Corpuscular Hemoglobin 26.5L, Mean Corpuscular Hemoglobin Concent 31.7L, Red Cell Distribution Width 14.5, Platelet Count 150, Mean Platelet Volume 6.4L, Neutrophils (%) (Auto) , Lymphocytes (%) (Auto) , Monocytes (%) (Auto) , Eosinophils (%) (Auto) , Basophils (%) (Auto) , Neutrophils % (Manual) [Pending], Lymphocytes % (Manual) [Pending], Platelet Estimate [Pending], Platelet Morphology [Pending], Sodium Level 131L, Potassium Level 5.3H, Chloride Level 97L, Carbon Dioxide Level 25, Anion Gap 9, Blood Urea Nitrogen 60H, Creatinine 6.7H, Estimat Glomerular Filtration Rate 8.4, Glucose Level 80, Calcium Level 7.6L, Phosphorus Level 4.9 , Magnesium Level 1.8, Total Bilirubin 0.4, Aspartate Amino Transf (AST/SGOT) 23 , Alanine Aminotransferase (ALT/SGPT) 22, Alkaline Phosphatase 244H, Total Protein 6.8, Albumin 1.6L, Globulin 5.2, Albumin/Globulin Ratio 0.3L Height (Feet): 5 Height (Inches): 8.00 Weight (Pounds): 119 General Appearance: alert EENT: normal ENT inspection Neck: supple Cardiovascular: normal rate Respiratory/Chest: decreased breath sounds Abdomen: normal bowel sounds, non tender, soft Extremities: non-tender Jonathan Dumont MD Oct 10, 2018 06:43
[2018-10-10 08:00] VITALS: BP 134/77
[2018-10-10] MEDS ORDERED: Sodium Polystyrene Sulfonate 15gm Powder ORAL SCH ×2 (08:45→11:00)
[2018-10-10] MEDS: Heparin 5000 units/ml inj SUBQ SCH ×2 (08:57→21:00)
[2018-10-10] MEDS ORDERED: Vancomycin 1250mg/D5W 250ml 250 ML IVPB ONE (09:45)
--- NOTE | 2018-10-10 09:49 | Nephrology Progress Note ---
Assessment/Plan Problem List: (1) Cardiomyopathy (2) ESRD on dialysis (3) Bacteremia (4) Homeless (5) Leukocytosis Assessment: strep bacteremia Assessment ESRD- Missed HD Cardiomyopathy Anemia of CKD Hyperkalemia Leukocytosis, ? Line infectio FTT (failure to thrive) in adult- malnutrition Homeless Plan Kayexelate Iron- stop IV Iron as ferritin is over 1500 Folate- po Dialysis as needed, due 10/11 Phos binders Augmentin and Doxy 2D echo Septal hypokinesis.mid to distal Inferior wall hypokinesis Left ventricular ejection fraction estimated to be 40%. blood cultures per orders Subjective ROS Limited/Unobtainable: No Constitutional: Reports: malaise Objective Objective Last 24 Hour Vital Signs Date Time Temp Pulse Resp B/P (MAP) Pulse Ox O2 Delivery O2 Flow Rate FiO2 10/10/18 08:00 98.1 66 18 134/77 (96) 99 10/10/18 04:00 98.2 66 17 133/77 (95) 98 10/09/18 21:00 Room Air Intake and Output 10/09/18 10/10/18 19:00 07:00 Intake Total 810 ml Output Total 300 ml Balance 510 ml Intake Oral 360 ml Other 450 ml Output Urine Total 300 ml # Voids 3 Laboratory Tests 10/10/18 05:00: White Blood Count 9.5, Red Blood Count 2.86L, Hemoglobin 7.6L, Hematocrit 23.9L , Mean Corpuscular Volume 83, Mean Corpuscular Hemoglobin 26.5L, Mean Corpuscular Hemoglobin Concent 31.7L, Red Cell Distribution Width 14.5, Platelet Count 150, Mean Platelet Volume 6.4L, Neutrophils (%) (Auto) , Lymphocytes (%) (Auto) , Monocytes (%) (Auto) , Eosinophils (%) (Auto) , Basophils (%) (Auto) , Differential Total Cells Counted 100, Neutrophils % ( Manual) 64, Lymphocytes % (Manual) 25, Monocytes % (Manual) 11H, Eosinophils % ( Manual) 0, Basophils % (Manual) 0, Band Neutrophils 0, Platelet Estimate Adequate, Platelet Morphology Normal, Hypochromasia 2+, Sodium Level 131L, Potassium Level 5.3H, Chloride Level 97L, Carbon Dioxide Level 25, Anion Gap 9, Blood Urea Nitrogen 60H, Creatinine 6.7H, Estimat Glomerular Filtration Rate 8.4 , Glucose Level 80, Calcium Level 7.6L, Phosphorus Level 4.9, Magnesium Level 1.8, Total Bilirubin 0.4, Aspartate Amino Transf (AST/SGOT) 23, Alanine Aminotransferase (ALT/SGPT) 22, Alkaline Phosphatase 244H, Total Protein 6.8, Albumin 1.6L, Globulin 5.2, Albumin/Globulin Ratio 0.3L Height (Feet): 5 Height (Inches): 8.00 Weight (Pounds): 119 General Appearance: no apparent distress Cardiovascular: normal rate Respiratory/Chest: lungs clear Abdomen: soft Objective no change David Meyers MD Oct 10, 2018 09:49
--- NOTE | 2018-10-10 10:07 | Pulmonology Progress Note ---
Assessment/Plan Assessment/Plan PROBLEM LIST: 1. End-stage renal disease, status post missed dialysis via PermCath. 2. Anemia, acute on chronic, with evidence of iron deficiency. 3. Hepatitis C. 4. Left thigh wound, imaging at [facility] reviewed. No evidence of abscess. 5. IV drug use. 6. Homelessness. 7. Systemic inflammatory response syndrome/sepsis 8. Leukocytosis. 9. Hypothyroidism 10. GPC bacteremia, likely contaminant 11. CHF with systolic dysfunction TREATMENT PLAN: 1. Cefepime/Vanco per ID, D/W Dr. Herrera, will continue IV Abx while in house and D/C on PO 2. encouarge PO 3. HD per renal 4. Surgery recs 5. wound care 6. Monitor hemoglobin and hematocrit, transfuse PRN Hb < 7, IV iron D/C 'd 2/2 elevated ferritin, on EPO 10. Pain control/supportive care. 11. Continue Synthroid 12. Multivitamins, thiamine, and folate. 13. DVT prophylaxis, heparin subcutaneous. 14. Diabetic renal diet. 15. The patient is a Full Code. Subjective Constitutional: Reports: no symptoms Gastrointestinal/Abdominal: Reports: no symptoms Genitourinary: Reports: no symptoms Allergies: Coded Allergies: No Known Allergies (Unverified , 10/04/18) Subjective still weak and ill appearing minimal po not getting oob no cp nv or bleeding no fever HD per renal no drainage noted Objective Last 24 Hour Vital Signs Date Time Temp Pulse Resp B/P (MAP) Pulse Ox O2 Delivery O2 Flow Rate FiO2 10/10/18 08:00 98.1 66 18 134/77 (96) 99 10/10/18 04:00 98.2 66 17 133/77 (95) 98 10/09/18 21:00 Room Air Intake and Output 10/09/18 10/10/18 19:00 07:00 Intake Total 810 ml Output Total 300 ml Balance 510 ml Intake Oral 360 ml Other 450 ml Output Urine Total 300 ml # Voids 3 General Appearance: cachetic Respiratory/Chest: crackles/rales Cardiovascular: normal rate, murmur systolic Abdomen: normal bowel sounds, soft, non tender, no scars Skin: no lesions Neurologic/Psychiatric: abnormal gait, alert Laboratory Tests 10/10/18 05:00: White Blood Count 9.5, Red Blood Count 2.86L, Hemoglobin 7.6L, Hematocrit 23.9L , Mean Corpuscular Volume 83, Mean Corpuscular Hemoglobin 26.5L, Mean Corpuscular Hemoglobin Concent 31.7L, Red Cell Distribution Width 14.5, Platelet Count 150, Mean Platelet Volume 6.4L, Neutrophils (%) (Auto) , Lymphocytes (%) (Auto) , Monocytes (%) (Auto) , Eosinophils (%) (Auto) , Basophils (%) (Auto) , Differential Total Cells Counted 100, Neutrophils % ( Manual) 64, Lymphocytes % (Manual) 25, Monocytes % (Manual) 11H, Eosinophils % ( Manual) 0, Basophils % (Manual) 0, Band Neutrophils 0, Platelet Estimate Adequate, Platelet Morphology Normal, Hypochromasia 2+, Sodium Level 131L, Potassium Level 5.3H, Chloride Level 97L, Carbon Dioxide Level 25, Anion Gap 9, Blood Urea Nitrogen 60H, Creatinine 6.7H, Estimat Glomerular Filtration Rate 8.4 , Glucose Level 80, Calcium Level 7.6L, Phosphorus Level 4.9, Magnesium Level 1.8, Total Bilirubin 0.4, Aspartate Amino Transf (AST/SGOT) 23, Alanine Aminotransferase (ALT/SGPT) 22, Alkaline Phosphatase 244H, Total Protein 6.8, Albumin 1.6L, Globulin 5.2, Albumin/Globulin Ratio 0.3L Current Medications Medications (Trade) Dose Ordered Sig/Mary Kay Route PRN Reason Start Time Stop Time Status Last Admin Dose Admin Acetaminophen (Tylenol) 650 mg Q6H PRN ORAL Mild Pain/Temp > 100.5 10/04/18 23:30 11/03/18 23:29 Acetaminophen/ Hydrocodone Bitart ([place] 5/325) 1 tab Q4H PRN ORAL Severe Pain (Pain Scale 7-10) 10/07/18 10:30 10/11/18 23:29 10/08/18 09:45 Amoxicillin/ Clavulanate Potassium (Augmentin) 500 mg DAILY ORAL 10/08/18 18:30 10/15/18 18:29 10/09/18 08:57 Carvedilol (Coreg) 3.125 mg EVERY 12 HOURS ORAL 10/06/18 21:00 11/05/18 20:59 10/09/18 08:57 Docusate Sodium (Colace) 100 mg THREE TIMES A DAY ORAL 10/05/18 13:00 11/04/18 12:59 10/09/18 09:01 Doxycycline Monohydrate (Vibramycin) 100 mg TID ORAL 10/10/18 13:00 10/15/18 20:59 UNV Epoetin David (Procrit (for ESRD on dialysis)) 10,000 units THU-THU-THU SUBQ 10/08/18 21:00 11/07/18 20:59 10/08/18 23:26 Folic Acid (Folate) 3 mg DAILY ORAL 10/05/18 11:04 11/04/18 11:03 10/09/18 09:01 Heparin Sodium (Porcine) (Heparin 5000 units/ml) 5,000 units EVERY 12 HOURS SUBQ 10/05/18 09:00 11/04/18 08:59 10/10/18 08:57 Levothyroxine Sodium (Synthroid) 25 mcg DAILY@0630 ORAL 10/06/18 06:30 11/05/18 06:29 10/10/18 05:51 Lisinopril (Zestril) 5 mg DAILY ORAL 10/08/18 10:47 11/07/18 10:46 10/09/18 08:58 Mirtazapine (Remeron) 15 mg BEDTIME ORAL 10/07/18 21:00 11/06/18 20:59 10/08/18 23:25 Ondansetron HCl (Zofran) 4 mg Q4HR PRN IVP Nausea & Vomiting 10/04/18 23:30 11/03/18 23:29 Pantoprazole (Protonix) 40 mg DAILY ORAL 10/05/18 11:02 11/04/18 11:01 10/09/18 08:59 Sevelamer Carbonate (Renvela) 1,600 mg THREE TIMES A DAY ORAL 10/06/18 18:00 11/04/18 12:59 10/09/18 09:00 Thiamine HCl (Vitamin B1) 100 mg DAILY ORAL 10/10/18 10:00 11/09/18 09:59 Vitamin B Complex/ Vit C/Folic Acid (Nephrovite) 1 tab DAILY ORAL 10/06/18 09:00 11/05/18 08:59 10/09/18 09:01 Saige Wilde DO Oct 10, 2018 10:07
[2018-10-10] MEDS: Lisinopril 2.5mg tab ORAL SCH (10:11)
[2018-10-10] MEDS: Thiamine 100mg tab ORAL SCH (10:12)
[2018-10-10] MEDS: Nephrovite tab (Rena-Vite) ORAL SCH (10:12)
[2018-10-10] MEDS: Docusate 100mg cap ORAL SCH ×3 (10:12→17:13)
[2018-10-10 12:00] VITALS: BP 127/81
--- NOTE | 2018-10-10 14:40 | Infectious Diseases Prog Note ---
Assessment/Plan Assessment/Plan ASSESSMENT AND PLAN: 1. sepsis, ? 2 types streptococcus species positive blood cultures likely contaminant, left LE wound with cellulitis, right leg wound, leukocytosis, sirs hx of left LE/hip abscess, s/p I/D - oral doxycycline 100 mg bid and augmentin 500 mg q day x 5 days - surveillance blood cultures negative, echo without vegetation - leukocytosis and cellulitis better - wound care per surgery, no debridement for now - monitor labs and wbc count wnl now - d/w surgery, wounds stable 2. The patient has end-stage renal disease, on hemodialysis. 3. hypothyroidism - he is on levothyroxine. 4. Anemia 5. Thrombocytopenia. 6. Hepatitis C infection. 7. Hepatocellular disease. 8. Failure to thrive. 9. End-stage renal disease, hemodialysis. 10. Noncompliance with dialysis. 11. No history of hypertension or diabetes. 12. History of abscess status post incision and drainage. 13. No known drug allergies.. 14. Social positive for intravenous drug abuse. 15. Family history is Noncontributory. 16. Case discussed with RN. 17. Case discussed with primary consultants. 18. MAR was noted. 19. Notes and records were noted. 20. Orders were entered. Subjective Constitutional: Denies: fever HEENT: Denies: congestion Respiratory: Denies: shortness of breath Cardiovascular: Denies: chest pain Gastrointestinal/Abdominal: Denies: nausea, vomiting, diarrhea Genitourinary: Denies: dysuria, hematuria Neurologic: Denies: headache Psychiatric: Denies: depression Skin: Denies: rash Hematologic: Denies: bleeding Musculoskeletal: Reports: pain - leg pain better Allergies: Coded Allergies: No Known Allergies (Unverified , 10/04/18) Objective Vital Signs Last 24 Hour Vital Signs Date Time Temp Pulse Resp B/P (MAP) Pulse Ox O2 Delivery O2 Flow Rate FiO2 10/10/18 12:00 97.6 64 18 127/81 (96) 99 10/10/18 10:12 66 134/77 10/10/18 10:11 134/77 10/10/18 09:00 Room Air 10/10/18 08:00 98.1 66 18 134/77 (96) 99 10/10/18 04:00 98.2 66 17 133/77 (95) 98 10/09/18 21:00 Room Air Height (Feet): 5 Height (Inches): 8.00 Weight (Pounds): 119 General Appearance: no acute distress HEENT: normocephalic, atraumatic, anicteric, mucous membranes moist Respiratory/Chest: lungs clear, normal breath sounds, no respiratory distress, no accessory muscle use Cardiovascular: normal rate, regular rhythm, no gallop/murmur, no JVD Abdomen: normal bowel sounds, soft, non tender, no organomegaly, non distended Genitourinary: other - no giron, no cva pain Extremities: no cyanosis, other - leg cellulits better, wounds stable Skin: no rash Neurologic/Psychiatric: hand suture winder II-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 There is some atelectasis at the right lung base. The lungs and pleural spaces are otherwise clear. The heart size is upper limits of normal. Aorta is tortuous and calcified. Upper mediastinum is unremarkable Impression: Minimal right basilar atelectasis No acute process otherwise Tunneled dialysis catheter Microbiology Date/Time Source Procedure Growth Status 10/06/18 14:30 Blood Blood Culture - Preliminary NO GROWTH AFTER 72 HOURS Resulted 10/04/18 21:15 Nasal Nares MRSA Culture - Final NO METHICILLIN RESISTANT STAPH AUREUS... Complete 10/05/18 08:30 Urine,Clean Catch Urine Culture - Final NO GROWTH AFTER 48 HOURS Complete 10/05/18 21:00 Rectum VRE Culture - Final NO VANCOMYCIN RESISTANT ENTEROCOCCUS ... Complete Laboratory Tests Test 10/10/18 05:00 White Blood Count 9.5 K/UL (4.8-10.8) Red Blood Count 2.86 M/UL (4.70-6.10) L Hemoglobin 7.6 G/DL (14.2-18.0) L Hematocrit 23.9 % (42.0-52.0) L Mean Corpuscular Volume 83 FL (80-99) Mean Corpuscular Hemoglobin 26.5 PG (27.0-31.0) L Mean Corpuscular Hemoglobin Concent 31.7 G/DL (32.0-36.0) L Red Cell Distribution Width 14.5 % (11.6-14.8) Platelet Count 150 K/UL (150-450) Mean Platelet Volume 6.4 FL (6.5-10.1) L Neutrophils (%) (Auto) % (45.0-75.0) Lymphocytes (%) (Auto) % (20.0-45.0) Monocytes (%) (Auto) % (1.0-10.0) Eosinophils (%) (Auto) % (0.0-3.0) Basophils (%) (Auto) % (0.0-2.0) Differential Total Cells Counted 100 Neutrophils % (Manual) 64 % (45-75) Lymphocytes % (Manual) 25 % (20-45) Monocytes % (Manual) 11 % (1-10) H Eosinophils % (Manual) 0 % (0-3) Basophils % (Manual) 0 % (0-2) Band Neutrophils 0 % (0-8) Platelet Estimate Adequate Platelet Morphology Normal Hypochromasia 2+ Sodium Level 131 MMOL/L (136-145) L Potassium Level 5.3 MMOL/L (3.5-5.1) H Chloride Level 97 MMOL/L (98-107) L Carbon Dioxide Level 25 MMOL/L (21-32) Anion Gap 9 mmol/L (5-15) Blood Urea Nitrogen 60 mg/dL (7-18) H Creatinine 6.7 MG/DL (0.55-1.30) H Estimat Glomerular Filtration Rate 8.4 mL/min (>60) Glucose Level 80 MG/DL (74-106) Calcium Level 7.6 MG/DL (8.5-10.1) L Phosphorus Level 4.9 MG/DL (2.5-4.9) Magnesium Level 1.8 MG/DL (1.8-2.4) Total Bilirubin 0.4 MG/DL (0.2-1.0) Aspartate Amino Transf (AST/SGOT) 23 U/L (15-37) Alanine Aminotransferase (ALT/SGPT) 22 U/L (12-78) Alkaline Phosphatase 244 U/L (46-116) H Total Protein 6.8 G/DL (6.4-8.2) Albumin 1.6 G/DL (3.4-5.0) L Globulin 5.2 g/dL Albumin/Globulin Ratio 0.3 (1.0-2.7) L Current Medications Medications (Trade) Dose Ordered Sig/Mary Kay Route PRN Reason Start Time Stop Time Status Last Admin Dose Admin Acetaminophen (Tylenol) 650 mg Q6H PRN ORAL Mild Pain/Temp > 100.5 10/04/18 23:30 11/03/18 23:29 Acetaminophen/ Hydrocodone Bitart ([place] 5/325) 1 tab Q4H PRN ORAL Severe Pain (Pain Scale 7-10) 10/07/18 10:30 10/11/18 23:29 10/08/18 09:45 Amoxicillin/ Clavulanate Potassium (Augmentin) 500 mg DAILY ORAL 10/08/18 18:30 10/15/18 18:29 10/10/18 10:11 Carvedilol (Coreg) 3.125 mg EVERY 12 HOURS ORAL 10/06/18 21:00 11/05/18 20:59 10/10/18 10:12 Docusate Sodium (Colace) 100 mg THREE TIMES A DAY ORAL 10/05/18 13:00 11/04/18 12:59 10/10/18 10:12 Doxycycline Monohydrate (Vibramycin) 100 mg Q12HR ORAL 10/10/18 21:00 10/15/18 20:59 Epoetin David (Procrit (for ESRD on dialysis)) 10,000 units THU-THU-THU SUBQ 10/08/18 21:00 11/07/18 20:59 10/08/18 23:26 Folic Acid (Folate) 3 mg DAILY ORAL 10/05/18 11:04 11/04/18 11:03 10/10/18 10:12 Heparin Sodium (Porcine) (Heparin 5000 units/ml) 5,000 units EVERY 12 HOURS SUBQ 10/05/18 09:00 11/04/18 08:59 10/10/18 08:57 Levothyroxine Sodium (Synthroid) 25 mcg DAILY@0630 ORAL 10/06/18 06:30 11/05/18 06:29 10/10/18 05:51 Lisinopril (Zestril) 5 mg DAILY ORAL 10/08/18 10:47 11/07/18 10:46 10/10/18 10:11 Mirtazapine (Remeron) 15 mg BEDTIME ORAL 10/07/18 21:00 11/06/18 20:59 10/08/18 23:25 Ondansetron HCl (Zofran) 4 mg Q4HR PRN IVP Nausea & Vomiting 10/04/18 23:30 11/03/18 23:29 Pantoprazole (Protonix) 40 mg DAILY ORAL 10/05/18 11:02 11/04/18 11:01 10/10/18 10:12 Sevelamer Carbonate (Renvela) 1,600 mg THREE TIMES A DAY ORAL 10/06/18 18:00 11/04/18 12:59 10/10/18 12:44 Thiamine HCl (Vitamin B1) 100 mg DAILY ORAL 10/10/18 10:00 11/09/18 09:59 10/10/18 10:12 Vitamin B Complex/ Vit C/Folic Acid (Nephrovite) 1 tab DAILY ORAL 10/06/18 09:00 11/05/18 08:59 10/10/18 10:12 Ana De La Cruz MD Oct 10, 2018 14:40
--- NOTE | 2018-10-10 14:57 | Cardiology Progress Note ---
Assessment/Plan Problem List: (1) Homeless (2) CHF (congestive heart failure) (3) Cardiomyopathy (4) ESRD on dialysis Status: stable, progressing Status Narrative Cardiomyopathy, likely nonischemic, w/ EF 40s by echo this admission. Does not appear volume overloaded. ESRD, w/ missed HD treatments Hyperkalemia Hyponatremia Anemia Assessment/Plan Continue regular HD - last dialysis 10/08. Continue medical management for cardiomyopathy - coreg, lisinopril Consider ischemia evaluation if no previous stress testing. Will d/w Dr. Lai Subjective ROS Limited/Unobtainable: No Subjective Cardiology for Dr. Lai No c/o dyspnea or pain. Objective Last 24 Hour Vital Signs Date Time Temp Pulse Resp B/P (MAP) Pulse Ox O2 Delivery O2 Flow Rate FiO2 10/10/18 12:00 97.6 64 18 127/81 (96) 99 10/10/18 10:12 66 134/77 10/10/18 10:11 134/77 10/10/18 09:00 Room Air 10/10/18 08:00 98.1 66 18 134/77 (96) 99 10/10/18 04:00 98.2 66 17 133/77 (95) 98 10/09/18 21:00 Room Air General Appearance: WD/WN, cachetic, thin EENT: PERRL/EOMI Neck: supple, no JVD Rhythm: NSR Cardiovascular: normal rate, regular rhythm, no gallop/murmur Respiratory/Chest: lungs clear Abdomen: non tender, soft, hepatomegaly Extremities: no swelling Intake and Output 10/09/18 10/10/18 19:00 07:00 Intake Total 810 ml Output Total 300 ml Balance 510 ml Intake Oral 360 ml Other 450 ml Output Urine Total 300 ml # Voids 3 Laboratory Tests Test 10/10/18 05:00 White Blood Count 9.5 K/UL (4.8-10.8) Red Blood Count 2.86 M/UL (4.70-6.10) L Hemoglobin 7.6 G/DL (14.2-18.0) L Hematocrit 23.9 % (42.0-52.0) L Mean Corpuscular Volume 83 FL (80-99) Mean Corpuscular Hemoglobin 26.5 PG (27.0-31.0) L Mean Corpuscular Hemoglobin Concent 31.7 G/DL (32.0-36.0) L Red Cell Distribution Width 14.5 % (11.6-14.8) Platelet Count 150 K/UL (150-450) Mean Platelet Volume 6.4 FL (6.5-10.1) L Neutrophils (%) (Auto) % (45.0-75.0) Lymphocytes (%) (Auto) % (20.0-45.0) Monocytes (%) (Auto) % (1.0-10.0) Eosinophils (%) (Auto) % (0.0-3.0) Basophils (%) (Auto) % (0.0-2.0) Differential Total Cells Counted 100 Neutrophils % (Manual) 64 % (45-75) Lymphocytes % (Manual) 25 % (20-45) Monocytes % (Manual) 11 % (1-10) H Eosinophils % (Manual) 0 % (0-3) Basophils % (Manual) 0 % (0-2) Band Neutrophils 0 % (0-8) Platelet Estimate Adequate Platelet Morphology Normal Hypochromasia 2+ Sodium Level 131 MMOL/L (136-145) L Potassium Level 5.3 MMOL/L (3.5-5.1) H Chloride Level 97 MMOL/L (98-107) L Carbon Dioxide Level 25 MMOL/L (21-32) Anion Gap 9 mmol/L (5-15) Blood Urea Nitrogen 60 mg/dL (7-18) H Creatinine 6.7 MG/DL (0.55-1.30) H Estimat Glomerular Filtration Rate 8.4 mL/min (>60) Glucose Level 80 MG/DL (74-106) Calcium Level 7.6 MG/DL (8.5-10.1) L Phosphorus Level 4.9 MG/DL (2.5-4.9) Magnesium Level 1.8 MG/DL (1.8-2.4) Total Bilirubin 0.4 MG/DL (0.2-1.0) Aspartate Amino Transf (AST/SGOT) 23 U/L (15-37) Alanine Aminotransferase (ALT/SGPT) 22 U/L (12-78) Alkaline Phosphatase 244 U/L (46-116) H Total Protein 6.8 G/DL (6.4-8.2) Albumin 1.6 G/DL (3.4-5.0) L Globulin 5.2 g/dL Albumin/Globulin Ratio 0.3 (1.0-2.7) L Roya Choudhury MD Oct 10, 2018 14:57
--- NOTE | 2018-10-10 15:01 | General Surgery Progress Note ---
General Surgery-Progress Note Subjective Symptoms: improved, tolerating diet, passing flatus Objective Last 24 Hour Vital Signs Date Time Temp Pulse Resp B/P (MAP) Pulse Ox O2 Delivery O2 Flow Rate FiO2 10/10/18 12:00 97.6 64 18 127/81 (96) 99 10/10/18 10:12 66 134/77 10/10/18 10:11 134/77 10/10/18 09:00 Room Air 10/10/18 08:00 98.1 66 18 134/77 (96) 99 10/10/18 04:00 98.2 66 17 133/77 (95) 98 10/09/18 21:00 Room Air I&O Intake and Output 10/09/18 10/10/18 18:59 06:59 Intake Total 810 ml Output Total 300 ml Balance 510 ml Intake Oral 360 ml Other 450 ml Output Urine Total 300 ml # Voids 3 Dressing: dry Wound: clean Drains: other Cardiovascular: RSR Respiratory: clear Abdomen: soft, flat, non-tender, present bowel sounds Extremities: no cyanosis, other Laboratory Tests Test 10/10/18 05:00 White Blood Count 9.5 K/UL (4.8-10.8) Red Blood Count 2.86 M/UL (4.70-6.10) L Hemoglobin 7.6 G/DL (14.2-18.0) L Hematocrit 23.9 % (42.0-52.0) L Mean Corpuscular Volume 83 FL (80-99) Mean Corpuscular Hemoglobin 26.5 PG (27.0-31.0) L Mean Corpuscular Hemoglobin Concent 31.7 G/DL (32.0-36.0) L Red Cell Distribution Width 14.5 % (11.6-14.8) Platelet Count 150 K/UL (150-450) Mean Platelet Volume 6.4 FL (6.5-10.1) L Neutrophils (%) (Auto) % (45.0-75.0) Lymphocytes (%) (Auto) % (20.0-45.0) Monocytes (%) (Auto) % (1.0-10.0) Eosinophils (%) (Auto) % (0.0-3.0) Basophils (%) (Auto) % (0.0-2.0) Differential Total Cells Counted 100 Neutrophils % (Manual) 64 % (45-75) Lymphocytes % (Manual) 25 % (20-45) Monocytes % (Manual) 11 % (1-10) H Eosinophils % (Manual) 0 % (0-3) Basophils % (Manual) 0 % (0-2) Band Neutrophils 0 % (0-8) Platelet Estimate Adequate Platelet Morphology Normal Hypochromasia 2+ Sodium Level 131 MMOL/L (136-145) L Potassium Level 5.3 MMOL/L (3.5-5.1) H Chloride Level 97 MMOL/L (98-107) L Carbon Dioxide Level 25 MMOL/L (21-32) Anion Gap 9 mmol/L (5-15) Blood Urea Nitrogen 60 mg/dL (7-18) H Creatinine 6.7 MG/DL (0.55-1.30) H Estimat Glomerular Filtration Rate 8.4 mL/min (>60) Glucose Level 80 MG/DL (74-106) Calcium Level 7.6 MG/DL (8.5-10.1) L Phosphorus Level 4.9 MG/DL (2.5-4.9) Magnesium Level 1.8 MG/DL (1.8-2.4) Total Bilirubin 0.4 MG/DL (0.2-1.0) Aspartate Amino Transf (AST/SGOT) 23 U/L (15-37) Alanine Aminotransferase (ALT/SGPT) 22 U/L (12-78) Alkaline Phosphatase 244 U/L (46-116) H Total Protein 6.8 G/DL (6.4-8.2) Albumin 1.6 G/DL (3.4-5.0) L Globulin 5.2 g/dL Albumin/Globulin Ratio 0.3 (1.0-2.7) L Plan Problems: (1) Cellulitis Assessment & Plan: Multiple wounds noted on bilateral lower extremities and arms. some self inflicted and some skin rash left lower extremity cellulitis from resolving prior I&D/infection no drainage noted mild erythema patient expressed tenderness prior to even being touched and asks for pain meds on exam no abscess noted wound stable and slowly healing patient non compliant with care of wounds as noted in history wash wound daily with NS apply skin protectant / therahoney apply non adherent dressing followed by kerlix wrap thank you will follow with Raymond Gomes Oct 10, 2018 15:00
[2018-10-10 16:00] VITALS: BP 121/75
--- NOTE | 2018-10-11 06:20 | General Progress Note ---
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 / HD - malnutrition - poor prognosis Recommendations - s/p IV Iron - EPO - PPI - follow labs - push po - no EGD/Colon , per patient wishes - can consider HCV eradication at later date Subjective Allergies: Coded Allergies: No Known Allergies (Unverified , 10/04/18) Subjective Feels same no abdominal symptoms appetite better Objective Last 24 Hour Vital Signs Date Time Temp Pulse Resp B/P (MAP) Pulse Ox O2 Delivery O2 Flow Rate FiO2 10/10/18 21:00 Room Air 10/10/18 16:00 97.7 71 16 121/75 (90) 97 10/10/18 12:00 97.6 64 18 127/81 (96) 99 10/10/18 10:12 66 134/77 10/10/18 10:11 134/77 10/10/18 09:00 Room Air 10/10/18 08:00 98.1 66 18 134/77 (96) 99 Intake and Output 10/10/18 10/11/18 19:00 07:00 Intake Total 550 ml Output Total 450 ml Balance 550 ml -450 ml Other 550 ml Output Urine Total 450 ml Height (Feet): 5 Height (Inches): 8.00 Weight (Pounds): 119 Objective Thin NAD NCAT supple CTA RR soft ND no edema, (+) skin redness on thighs Cara Berkowitz MD Oct 11, 2018 06:20
[2018-10-11] MEDS: Levothyroxine 25mcg tab ORAL SCH (06:29)
--- NOTE | 2018-10-11 07:09 | General Progress Note ---
Assessment/Plan Assessment/Plan #. Anemia of kidney disease -- anemia panel reviewed, has end-stage renal disease, status post missed dialysis via PermCath. --> transfuse on prn basis, if hgb <7 --> no evidence for hemolysis noted --> Do not recommend iron at this time --> Cont po folic acid daily --> HD on permacath --> getting epogen since hd and esrd, also vit b/folic acid --> hemoglobin electrophoresis is pending (SICKLE CELL SCREEN IS PENDING) #. Thrombocytopenia due to underlying Hepatitis C. has been chronic --> afp 2.1, and trend plts as needed --> peripheral smear reviewed --> on abx as per ID --> ok for ppx if plt >50k w/ wither heparin --> Transfuse if Plt < 20k and fever, or if Plt < 10k without fever #. Leukocytosis likely due to infection. --> trend and monitor wbc for improvement --> Remains on IV abx #. Left thigh wound, imaging at [facility] reviewed. No evidence of abscess. ==> on abx #. IV drug use. #. Homelessness. #. Systemic inflammatory response syndrome. #. Hypothyroidism. #. Hep C -- outpatient eradication #. ESRD on hd 3x a week GREATLY APPRECIATE CONSULTATION. Subjective Constitutional: Denies: no symptoms, chills, diaphoresis, fever, malaise, weakness, other HEENT: Denies: no symptoms, eye pain, blurred vision, tearing, double vision, ear pain, ear discharge, nose pain, nose congestion, throat pain, throat swelling, mouth pain, mouth swelling, other Cardiovascular: Denies: no symptoms, chest pain, edema, irregular heart rate, lightheadedness, palpitations, syncope, other Respiratory: Denies: no symptoms, cough, orthopnea, shortness of breath, SOB with excertion, SOB at rest, sputum, stridor, wheezing, other Gastrointestinal/Abdominal: Denies: no symptoms, abdomen distended, abdominal pain, black stools, tarry stools, blood in stool, constipated, diarrhea, difficulty swallowing, nausea, poor appetite, poor fluid intake, rectal bleeding , vomiting, other Genitourinary: Denies: no symptoms, burning, discharge, frequency, flank pain, hematuria, incontinence, pain, urgency, other Neurologic/Psychiatric: Denies: no symptoms, anxiety, depressed, emotional problems, headache, numbness, paresthesia, pre-existing deficit, seizure, tingling, tremors, weakness, other Hematologic/Lymphatic: Denies: no symptoms, anemia, easy bleeding, easy bruising, other Allergies: Coded Allergies: No Known Allergies (Unverified , 10/04/18) Subjective aggressive this am, plan for hd as per nephro Objective Last 24 Hour Vital Signs Date Time Temp Pulse Resp B/P (MAP) Pulse Ox O2 Delivery O2 Flow Rate FiO2 10/10/18 21:00 Room Air 10/10/18 16:00 97.7 71 16 121/75 (90) 97 10/10/18 12:00 97.6 64 18 127/81 (96) 99 10/10/18 10:12 66 134/77 10/10/18 10:11 134/77 10/10/18 09:00 Room Air 10/10/18 08:00 98.1 66 18 134/77 (96) 99 Intake and Output 10/10/18 10/11/18 19:00 07:00 Intake Total 550 ml Output Total 450 ml Balance 550 ml -450 ml Other 550 ml Output Urine Total 450 ml Height (Feet): 5 Height (Inches): 8.00 Weight (Pounds): 119 Objective PHYSICAL EXAMINATION: GENERAL: elderly cachectic-looking gentleman in no respiratory distress. NECK: Supple. No jugular venous distention. LUNGS: Clear to auscultation. Less coughing. CARDIAC: Regular rhythm. A holosystolic regurgitant murmur is noted. ABDOMEN: Soft and nontender. ++ bowel sounds. EXTREMITIES: There is no clubbing, no cyanosis. There is no edema. Back: He has extensive ischemic changes in the skin in the inner thigh on both legs with eschar formation. Gordo Jang MD Oct 11, 2018 07:09
[2018-10-11 08:00] VITALS: BP 147/79
[2018-10-11] MEDS: Heparin 5000 units/ml inj SUBQ SCH ×2 (10:30→21:00)
[2018-10-11] MEDS: Lisinopril 2.5mg tab ORAL SCH ×2 (10:30→10:50)
[2018-10-11] MEDS: Thiamine 100mg tab ORAL SCH ×2 (10:30→10:50)
[2018-10-11] MEDS: Docusate 100mg cap ORAL SCH ×3 (10:31→17:40)
[2018-10-11] MEDS: Nephrovite tab (Rena-Vite) ORAL SCH ×2 (10:32→10:50)
--- NOTE | 2018-10-11 10:49 | Nephrology Progress Note ---
Assessment/Plan Problem List: (1) Cardiomyopathy (2) ESRD on dialysis (3) Bacteremia (4) Homeless (5) Leukocytosis Assessment: strep bacteremia Assessment ESRD- Cardiomyopathy Anemia of CKD Hyperkalemia Leukocytosis, ? Line infectio FTT (failure to thrive) in adult- malnutrition Homeless Plan Kayexelate Iron- stop IV Iron as ferritin is over 1500 Folate- po Dialysis as needed, due 10/11 Phos binders Augmentin and Doxy 2D echo Septal hypokinesis.mid to distal Inferior wall hypokinesis Left ventricular ejection fraction estimated to be 40%. blood cultures per orders Subjective ROS Limited/Unobtainable: No Constitutional: Reports: malaise Objective Objective Last 24 Hour Vital Signs Date Time Temp Pulse Resp B/P (MAP) Pulse Ox O2 Delivery O2 Flow Rate FiO2 10/11/18 10:31 70 147/79 10/11/18 10:30 147/79 10/11/18 08:00 97.8 70 20 147/79 (101) 100 70 10/10/18 21:00 Room Air 10/10/18 16:00 97.7 71 16 121/75 (90) 97 10/10/18 12:00 97.6 64 18 127/81 (96) 99 Intake and Output 10/10/18 10/11/18 19:00 07:00 Intake Total 550 ml Output Total 450 ml Balance 550 ml -450 ml Other 550 ml Output Urine Total 450 ml Height (Feet): 5 Height (Inches): 8.00 Weight (Pounds): 119 General Appearance: no apparent distress Objective no change David Meyers MD Oct 11, 2018 10:49
[2018-10-11 12:00] VITALS: BP 143/82
--- NOTE | 2018-10-11 15:19 | General Surgery Progress Note ---
General Surgery-Progress Note Subjective Additional Comments no acute events. comfortable. improving Objective Last 24 Hour Vital Signs Date Time Temp Pulse Resp B/P (MAP) Pulse Ox O2 Delivery O2 Flow Rate FiO2 10/11/18 12:00 97.4 69 20 143/82 (102) 98 10/11/18 10:50 143/82 10/11/18 10:31 70 147/79 10/11/18 09:00 Room Air 10/11/18 08:00 97.8 70 20 147/79 (101) 100 70 10/10/18 21:00 Room Air 10/10/18 16:00 97.7 71 16 121/75 (90) 97 I&O Intake and Output 10/10/18 10/11/18 19:00 07:00 Intake Total 550 ml Output Total 450 ml Balance 550 ml -450 ml Other 550 ml Output Urine Total 450 ml Dressing: dry Wound: clean, intact Drains: other Cardiovascular: RSR Respiratory: clear Abdomen: soft, flat, non-tender, present bowel sounds Extremities: other Plan Problems: (1) Cellulitis Assessment & Plan: Multiple wounds noted on bilateral lower extremities and arms. some self inflicted and some skin rash left lower extremity cellulitis from resolving prior I&D/infection no drainage noted mild erythema patient expressed tenderness prior to even being touched and asks for pain meds on exam no abscess noted wound stable and slowly healing patient non compliant with care of wounds as noted in history wash wound daily with NS apply skin protectant / therahoney apply non adherent dressing followed by kerlix wrap thank you will follow with Raymond Gomes Oct 11, 2018 15:19
[2018-10-11] MEDS: Norco 5mg/325mg tab ORAL PRN ×2 (17:40→21:45)
--- NOTE | 2018-10-11 17:45 | General Progress Note ---
Assessment/Plan Problem List: (1) Hepatitis C ICD Codes: B19.20 - Unspecified viral hepatitis C without hepatic coma SNOMED: 09825764 (2) Anemia ICD Codes: D64.9 - Anemia, unspecified SNOMED: 230023539 (3) Dialysis patient ICD Codes: Z99.2 - Dependence on renal dialysis SNOMED: 972940156 (4) FTT (failure to thrive) in adult ICD Codes: R62.7 - Adult failure to thrive SNOMED: 169217889 (5) Cellulitis ICD Codes: L03.90 - Cellulitis, unspecified SNOMED: 988421176 Qualifiers: Qualified Codes: L03.116 - Cellulitis of left lower limb (6) Leukocytosis ICD Codes: D72.829 - Elevated white blood cell count, unspecified SNOMED: 145607320, 409852914 (7) Homeless ICD Codes: Z59.0 - Homelessness SNOMED: 14360275, 016214006 (8) Missed dialysis SNOMED: 404726796 (9) CHF (congestive heart failure) ICD Codes: I50.9 - Heart failure, unspecified SNOMED: 08464815 (10) Bacteremia ICD Codes: R78.81 - Bacteremia SNOMED: 7747162 Assessment/Plan ASSESSMENT: The patient is a 62-year-old homeless male with a history of IV drug use; hepatitis C; hepatopathy; end-stage renal disease, on dialysis via tunneled cath; and noncompliance with missed dialysis, presenting with weakness, failure to thrive, and likely infection with leukocytosis and systemic inflammatory response syndrome/sepsis PROBLEM LIST: 1. End-stage renal disease, status post missed dialysis via PermCath. 2. Anemia, acute on chronic, with evidence of iron deficiency. 3. Hepatitis C. 4. Left thigh wound, imaging at [facility] reviewed. No evidence of abscess. 5. IV drug use. 6. Homelessness. 7. Systemic inflammatory response syndrome/sepsis 8. Leukocytosis. 9. Hypothyroidism 10. GPC bacteremia, likely contaminant 11. CHF with systolic dysfunction TREATMENT PLAN: 1. No IV, Augmentin/Doxy per ID - pt declines many doses 2. F/U repeat Cx's 3. HD per renal 4. Surgery recs 5. wound care 6. Monitor hemoglobin and hematocrit, transfuse PRN Hb < 7, refuses EPO 7. F/U GI and heme recs 8. F/U cardiology recs, medical management of CHF, ischemia eval at some point 9. Social work evaluation to assist with placement. D/W SW, working with insurance plan RE: SNF placement 10. Pain control/supportive care. 11. Continue Synthroid 12. Multivitamins, thiamine, and folate. 13. DVT prophylaxis, heparin subcutaneous. 14. Diabetic renal diet. 15. The patient is a Full Code. 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 reviewed Declines endoscopy, declines removal of tunneled cath Declines multiple meds No F/C/CP/SOB/N/V/D Objective Last 24 Hour Vital Signs Date Time Temp Pulse Resp B/P (MAP) Pulse Ox O2 Delivery O2 Flow Rate FiO2 10/11/18 12:00 97.4 69 20 143/82 (102) 98 10/11/18 10:50 143/82 10/11/18 10:31 70 147/79 10/11/18 09:00 Room Air 10/11/18 08:00 97.8 70 20 147/79 (101) 100 70 10/10/18 21:00 Room Air Intake and Output 10/10/18 10/11/18 18:59 06:59 Intake Total 550 ml Output Total 450 ml Balance 550 ml -450 ml Other 550 ml Output Urine Total 450 ml Height (Feet): 5 Height (Inches): 8.00 Weight (Pounds): 119 General Appearance: no apparent distress, cachetic EENT: PERRL/EOMI Neck: non-tender, normal alignment, supple Cardiovascular: normal peripheral pulses, normal rate, regular rhythm Respiratory/Chest: chest wall non-tender, lungs clear, normal breath sounds, no respiratory distress, no accessory muscle use Abdomen: normal bowel sounds, non tender, soft, no organomegaly, no mass Edema: no edema noted Arm (L), no edema noted Arm (R), no edema noted Leg (L), no edema noted Leg (R), no edema noted Pedal (L), no edema noted Pedal (R), no edema noted Generalized Michael Coleman MD Oct 11, 2018 17:45
[2018-10-11 20:00] VITALS: BP 141/76
--- NOTE | 2018-10-11 20:24 | Cardiology Progress Note ---
Assessment/Plan Assessment/Plan 1. Cardiomyopathy, likely ischemic based, no segmental wall motion abnormalities. 2. Congestive heart failure, acute on chronic systolic. 3. History of hepatitis C. 4. Questionable history of liver cancer per patient. 5. End-stage renal disease, started on hemodialysis. 6. Medication/dialysis nonadherence. 7. Question coronary disease history. 8. Tobacco use disorder. 9. History of intravenous drug abuse. 10. Cirrhosis of the liver by ultrasound. 11. Area of increased hepatic echogenicity in the liver. refused evaluation by me today Subjective Cardiovascular: Denies: chest pain Respiratory: Denies: shortness of breath Gastrointestinal/Abdominal: Denies: abdominal pain Objective Last 24 Hour Vital Signs Date Time Temp Pulse Resp B/P (MAP) Pulse Ox O2 Delivery O2 Flow Rate FiO2 10/11/18 12:00 97.4 69 20 143/82 (102) 98 10/11/18 10:50 143/82 10/11/18 10:31 70 147/79 10/11/18 09:00 Room Air 10/11/18 08:00 97.8 70 20 147/79 (101) 100 70 10/10/18 21:00 Room Air General Appearance: other - refused to further evaluated wants to sleep Intake and Output 10/10/18 10/11/18 18:59 06:59 Intake Total 550 ml Output Total 450 ml Balance 550 ml -450 ml Other 550 ml Output Urine Total 450 ml Arturo Lai MD Oct 11, 2018 20:24
[2018-10-11] MEDS: Epogen (for ESRD on dialysis) SUBQ SCH (21:45)
[2018-10-12] VITALS: BP 138/69
[2018-10-12 04:00] VITALS: BP 148/83
[2018-10-12] MEDS: Levothyroxine 25mcg tab ORAL SCH (05:46)
--- NOTE | 2018-10-12 10:05 | General Progress Note ---
Assessment/Plan Problem List: (1) Hepatitis C ICD Codes: B19.20 - Unspecified viral hepatitis C without hepatic coma SNOMED: 83730365 (2) Anemia ICD Codes: D64.9 - Anemia, unspecified SNOMED: 755499756 (3) Dialysis patient ICD Codes: Z99.2 - Dependence on renal dialysis SNOMED: 404535749 (4) FTT (failure to thrive) in adult ICD Codes: R62.7 - Adult failure to thrive SNOMED: 021043626 (5) Cellulitis ICD Codes: L03.90 - Cellulitis, unspecified SNOMED: 826776338 Qualifiers: Qualified Codes: L03.116 - Cellulitis of left lower limb (6) Leukocytosis ICD Codes: D72.829 - Elevated white blood cell count, unspecified SNOMED: 248620157, 306573948 (7) Homeless ICD Codes: Z59.0 - Homelessness SNOMED: 27706014, 485271077 (8) Missed dialysis SNOMED: 604359136 (9) CHF (congestive heart failure) ICD Codes: I50.9 - Heart failure, unspecified SNOMED: 71328427 (10) Bacteremia ICD Codes: R78.81 - Bacteremia SNOMED: 6119970 Assessment/Plan ASSESSMENT: The patient is a 62-year-old homeless male with a history of IV drug use; hepatitis C; hepatopathy; end-stage renal disease, on dialysis via tunneled cath; and noncompliance with missed dialysis, presenting with weakness, failure to thrive, and likely infection with leukocytosis and systemic inflammatory response syndrome/sepsis PROBLEM LIST: 1. End-stage renal disease, status post missed dialysis via PermCath. 2. Anemia, acute on chronic, with evidence of iron deficiency. 3. Hepatitis C. 4. Left thigh wound, imaging at [facility] reviewed. No evidence of abscess. 5. IV drug use. 6. Homelessness. 7. Systemic inflammatory response syndrome/sepsis 8. Leukocytosis. 9. Hypothyroidism 10. GPC bacteremia, likely contaminant 11. CHF with systolic dysfunction TREATMENT PLAN: 1. No IV, Augmentin/Doxy per ID - pt declines many doses 2. F/U repeat Cx's 3. HD per renal 4. Surgery recs 5. wound care 6. Monitor hemoglobin and hematocrit, transfuse PRN Hb < 7, refuses EPO, F/U plasma cell labs 7. F/U GI and heme recs 8. F/U cardiology recs, medical management of CHF, ischemia eval at some point 9. Social work evaluation to assist with placement. D/W SW, working with insurance plan RE: SNF placement 10. Pain control/supportive care. 11. Continue Synthroid 12. Multivitamins, thiamine, and folate. 13. DVT prophylaxis, heparin subcutaneous. 14. Diabetic renal diet. 15. The patient is a Full Code. 16. 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 Declines endoscopy, declines removal of tunneled cath Declines multiple meds Declines blood No F/C/CP/SOB/N/V/D Objective Last 24 Hour Vital Signs Date Time Temp Pulse Resp B/P (MAP) Pulse Ox O2 Delivery O2 Flow Rate FiO2 10/12/18 04:00 97.6 65 16 148/83 (104) 97 10/12/18 00:00 97.8 69 17 138/69 (92) 97 10/11/18 21:44 74 141/76 10/11/18 21:00 Room Air 10/11/18 20:00 98.1 74 17 141/76 (97) 97 74 10/11/18 12:00 97.4 69 20 143/82 (102) 98 10/11/18 10:50 143/82 10/11/18 10:31 70 147/79 Intake and Output 10/11/18 10/12/18 19:00 07:00 Intake Total 600 ml 780 ml Output Total 450 ml Balance 150 ml 780 ml Intake Oral 600 ml 780 ml Output Urine Total 450 ml # Voids 2 # Bowel Movements 1 Height (Feet): 5 Height (Inches): 8.00 Weight (Pounds): 121 General Appearance: WD/WN, no apparent distress EENT: PERRL/EOMI Neck: non-tender, normal alignment, supple Cardiovascular: normal peripheral pulses, normal rate, regular rhythm Respiratory/Chest: chest wall non-tender, lungs clear, normal breath sounds Abdomen: normal bowel sounds, non tender, soft, no organomegaly, no mass Edema: no edema noted Arm (L), no edema noted Arm (R), no edema noted Leg (L), no edema noted Leg (R), no edema noted Pedal (L), no edema noted Pedal (R), no edema noted Generalized Michael Coleman MD Oct 12, 2018 10:05
[2018-10-12] MEDS: Thiamine 100mg tab ORAL SCH (10:18)
[2018-10-12] MEDS: Nephrovite tab (Rena-Vite) ORAL SCH (10:18)
[2018-10-12] MEDS: Norco 5mg/325mg tab ORAL PRN ×3 (10:19→22:05)
[2018-10-12] MEDS: Lisinopril 2.5mg tab ORAL SCH (10:24)
[2018-10-12 10:25] VITALS: BP 162/76
[2018-10-12] MEDS: Heparin 5000 units/ml inj SUBQ SCH ×2 (10:27→20:41)
[2018-10-12] MEDS: Docusate 100mg cap ORAL SCH ×3 (10:37→17:26)
--- NOTE | 2018-10-12 10:44 | General Progress Note ---
Assessment/Plan Status: stable, unchanged Assessment/Plan #. Anemia of kidney disease -- anemia panel reviewed, has end-stage renal disease, status post missed dialysis via PermCath. --> transfuse on prn basis, if hgb <7 --> no evidence for hemolysis noted --> Do not recommend iron at this time --> Cont po folic acid daily --> HD on permacath --> getting epogen since hd and esrd, also vit b/folic acid --> hemoglobin electrophoresis is pending (SICKLE CELL SCREEN IS PENDING) #. Thrombocytopenia due to underlying Hepatitis C. has been chronic --> afp 2.1, and trend plts as needed --> peripheral smear reviewed --> on abx as per ID --> ok for ppx if plt >50k w/ wither heparin --> Transfuse if Plt < 20k and fever, or if Plt < 10k without fever #. Leukocytosis likely due to infection. --> trend and monitor wbc for improvement --> Remains on IV abx #. Left thigh wound, imaging at [facility] reviewed. No evidence of abscess. ==> on abx #. IV drug use. #. Homelessness. #. Systemic inflammatory response syndrome. #. Hypothyroidism. #. Hep C -- outpatient eradication #. ESRD on hd 3x a week GREATLY APPRECIATE CONSULTATION. Subjective Date patient seen: Oct 12, 2018 Hematologic/Lymphatic: Reports: anemia Allergies: Coded Allergies: No Known Allergies (Unverified , 10/04/18) All Systems: reviewed and negative except above Subjective Pt resting in bed. No acute events. H/H stable. Remains on IV abx. Objective Last 24 Hour Vital Signs Date Time Temp Pulse Resp B/P (MAP) Pulse Ox O2 Delivery O2 Flow Rate FiO2 10/12/18 10:25 97.5 71 162/76 (104) 10/12/18 10:24 162/76 10/12/18 10:24 71 162/76 10/12/18 04:00 97.6 65 16 148/83 (104) 97 10/12/18 00:00 97.8 69 17 138/69 (92) 97 10/11/18 21:44 74 141/76 10/11/18 21:00 Room Air 10/11/18 20:00 98.1 74 17 141/76 (97) 97 74 10/11/18 12:00 97.4 69 20 143/82 (102) 98 10/11/18 10:50 143/82 Intake and Output 10/11/18 10/12/18 19:00 07:00 Intake Total 600 ml 780 ml Output Total 450 ml Balance 150 ml 780 ml Intake Oral 600 ml 780 ml Output Urine Total 450 ml # Voids 2 # Bowel Movements 1 Height (Feet): 5 Height (Inches): 8.00 Weight (Pounds): 121 Objective PHYSICAL EXAMINATION: GENERAL: elderly cachectic-looking gentleman in no respiratory distress. NECK: Supple. No jugular venous distention. LUNGS: Clear to auscultation. Less coughing. CARDIAC: Regular rhythm. A holosystolic regurgitant murmur is noted. ABDOMEN: Soft and nontender. ++ bowel sounds. EXTREMITIES: There is no clubbing, no cyanosis. There is no edema. Back: He has extensive ischemic changes in the skin in the inner thigh on both legs with eschar formation. Gordo Jang MD Oct 12, 2018 10:44
[2018-10-12 12:00] VITALS: BP 138/77
--- NOTE | 2018-10-12 13:42 | Cardiology Progress Note ---
Assessment/Plan Assessment/Plan 1. Cardiomyopathy, likely ischemic based, no segmental wall motion abnormalities. 2. Congestive heart failure, acute on chronic systolic. 3. History of hepatitis C. 4. Questionable history of liver cancer per patient. 5. End-stage renal disease, started on hemodialysis. 6. Medication/dialysis nonadherence. 7. Question coronary disease history. 8. Tobacco use disorder. 9. History of intravenous drug abuse. 10. Cirrhosis of the liver by ultrasound. 11. Area of increased hepatic echogenicity in the liver. bp has room for improvement will d/w dr flanagan if able to increase acie or add norvasc for better bp control no myonecrosis on this admission not in acute chf at this time increase coreg for now to 6.25 mg bid check stool ob to allow addition of ecotrin ldl was 39! Subjective Cardiovascular: Denies: chest pain, lightheadedness, palpitations Respiratory: Denies: shortness of breath Gastrointestinal/Abdominal: Denies: abdominal pain Genitourinary: Denies: burning Subjective wants to be left alone to relax Objective Last 24 Hour Vital Signs Date Time Temp Pulse Resp B/P (MAP) Pulse Ox O2 Delivery O2 Flow Rate FiO2 10/12/18 12:00 99.1 68 17 138/77 (97) 97 10/12/18 10:25 97.5 71 162/76 (104) 10/12/18 10:24 162/76 10/12/18 10:24 71 162/76 10/12/18 09:00 Room Air 10/12/18 04:00 97.6 65 16 148/83 (104) 97 10/12/18 00:00 97.8 69 17 138/69 (92) 97 10/11/18 21:44 74 141/76 10/11/18 21:00 Room Air 10/11/18 20:00 98.1 74 17 141/76 (97) 97 74 General Appearance: no apparent distress, alert Neck: supple Cardiovascular: normal rate, regular rhythm Respiratory/Chest: lungs clear Abdomen: normal bowel sounds, non tender, soft Extremities: no swelling Intake and Output 10/11/18 10/12/18 19:00 07:00 Intake Total 600 ml 780 ml Output Total 450 ml Balance 150 ml 780 ml Intake Oral 600 ml 780 ml Output Urine Total 450 ml # Voids 2 # Bowel Movements 1 Arturo Lai MD Oct 12, 2018 13:42
--- NOTE | 2018-10-12 14:32 | Infectious Diseases Prog Note ---
Assessment/Plan Assessment/Plan ASSESSMENT AND PLAN: 1. sepsis, ? 2 types streptococcus species positive blood cultures likely contaminant, left LE wound with cellulitis, right leg wound, leukocytosis, sirs hx of left LE/hip abscess, s/p I/D - oral doxycycline 100 mg bid and augmentin 500 mg q day x 3 days - surveillance blood cultures negative, echo without vegetation - leukocytosis resolved and cellulitis better - wound care per surgery, no debridement for now - monitor labs and wbc count wnl now - d/w surgery, wounds stable 2. The patient has end-stage renal disease, on hemodialysis. 3. hypothyroidism - he is on levothyroxine. 4. Anemia 5. Thrombocytopenia. 6. Hepatitis C infection. 7. Hepatocellular disease. 8. Failure to thrive. 9. End-stage renal disease, hemodialysis. 10. Noncompliance with dialysis. 11. No history of hypertension or diabetes. 12. History of abscess status post incision and drainage. 13. No known drug allergies.. 14. Social positive for intravenous drug abuse. 15. Family history is Noncontributory. 16. Case discussed with RN. 17. Case discussed with primary consultants. 18. MAR was noted. 19. Notes and records were noted. 20. Orders were entered. Subjective Constitutional: Denies: fever HEENT: Denies: congestion Respiratory: Denies: shortness of breath Cardiovascular: Denies: chest pain Gastrointestinal/Abdominal: Denies: nausea, vomiting, diarrhea Genitourinary: Denies: dysuria, hematuria, frequency Neurologic: Denies: headache Psychiatric: Denies: depression Skin: Denies: rash Hematologic: Denies: bleeding Musculoskeletal: Denies: pain Allergies: Coded Allergies: No Known Allergies (Unverified , 10/04/18) Objective Vital Signs Last 24 Hour Vital Signs Date Time Temp Pulse Resp B/P (MAP) Pulse Ox O2 Delivery O2 Flow Rate FiO2 10/12/18 12:00 99.1 68 17 138/77 (97) 97 10/12/18 10:25 97.5 71 162/76 (104) 10/12/18 10:24 162/76 10/12/18 10:24 71 162/76 10/12/18 09:00 Room Air 10/12/18 04:00 97.6 65 16 148/83 (104) 97 10/12/18 00:00 97.8 69 17 138/69 (92) 97 10/11/18 21:44 74 141/76 10/11/18 21:00 Room Air 10/11/18 20:00 98.1 74 17 141/76 (97) 97 74 Height (Feet): 5 Height (Inches): 8.00 Weight (Pounds): 121 General Appearance: no acute distress HEENT: normocephalic, atraumatic, anicteric, mucous membranes moist Respiratory/Chest: lungs clear, normal breath sounds, no respiratory distress Cardiovascular: normal rate, regular rhythm, no gallop/murmur, no JVD Abdomen: normal bowel sounds, soft, non tender, no organomegaly, non distended Genitourinary: other - no giron Extremities: no cyanosis, other - wounds stable, cellulitis better Skin: no rash 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 There is some atelectasis at the right lung base. The lungs and pleural spaces are otherwise clear. The heart size is upper limits of normal. Aorta is tortuous and calcified. Upper mediastinum is unremarkable Impression: Minimal right basilar atelectasis No acute process otherwise Tunneled dialysis catheter Microbiology Date/Time Source Procedure Growth Status 10/06/18 14:30 Blood Blood Culture - Final NO GROWTH AFTER 5 DAYS Complete 10/04/18 21:15 Nasal Nares MRSA Culture - Final NO METHICILLIN RESISTANT STAPH AUREUS... Complete 10/05/18 08:30 Urine,Clean Catch Urine Culture - Final NO GROWTH AFTER 48 HOURS Complete 10/05/18 21:00 Rectum VRE Culture - Final NO VANCOMYCIN RESISTANT ENTEROCOCCUS ... Complete Labs Test 10/10/18 05:00 White Blood Count 9.5 K/UL (4.8-10.8) Red Blood Count 2.86 M/UL (4.70-6.10) Hemoglobin 7.6 G/DL (14.2-18.0) Hematocrit 23.9 % (42.0-52.0) Mean Corpuscular Volume 83 FL (80-99) Mean Corpuscular Hemoglobin 26.5 PG (27.0-31.0) Mean Corpuscular Hemoglobin Concent 31.7 G/DL (32.0-36.0) Red Cell Distribution Width 14.5 % (11.6-14.8) Platelet Count 150 K/UL (150-450) Mean Platelet Volume 6.4 FL (6.5-10.1) Neutrophils (%) (Auto) % (45.0-75.0) Lymphocytes (%) (Auto) % (20.0-45.0) Monocytes (%) (Auto) % (1.0-10.0) Eosinophils (%) (Auto) % (0.0-3.0) Basophils (%) (Auto) % (0.0-2.0) Differential Total Cells Counted 100 Neutrophils % (Manual) 64 % (45-75) Lymphocytes % (Manual) 25 % (20-45) Monocytes % (Manual) 11 % (1-10) Eosinophils % (Manual) 0 % (0-3) Basophils % (Manual) 0 % (0-2) Band Neutrophils 0 % (0-8) Platelet Estimate Adequate Platelet Morphology Normal Hypochromasia 2+ Sodium Level 131 MMOL/L (136-145) Potassium Level 5.3 MMOL/L (3.5-5.1) Chloride Level 97 MMOL/L (98-107) Carbon Dioxide Level 25 MMOL/L (21-32) Anion Gap 9 mmol/L (5-15) Blood Urea Nitrogen 60 mg/dL (7-18) Creatinine 6.7 MG/DL (0.55-1.30) Estimat Glomerular Filtration Rate 8.4 mL/min (>60) Glucose Level 80 MG/DL (74-106) Calcium Level 7.6 MG/DL (8.5-10.1) Phosphorus Level 4.9 MG/DL (2.5-4.9) Magnesium Level 1.8 MG/DL (1.8-2.4) Total Bilirubin 0.4 MG/DL (0.2-1.0) Aspartate Amino Transf (AST/SGOT) 23 U/L (15-37) Alanine Aminotransferase (ALT/SGPT) 22 U/L (12-78) Alkaline Phosphatase 244 U/L (46-116) Total Protein 6.8 G/DL (6.4-8.2) Albumin 1.6 G/DL (3.4-5.0) Globulin 5.2 g/dL Albumin/Globulin Ratio 0.3 (1.0-2.7) Current Medications Medications (Trade) Dose Ordered Sig/Mary Kay Route PRN Reason Start Time Stop Time Status Last Admin Dose Admin Acetaminophen (Tylenol) 650 mg Q6H PRN ORAL Mild Pain/Temp > 100.5 10/04/18 23:30 11/03/18 23:29 Acetaminophen/ Hydrocodone Bitart (Bonesteel 5/325) 1 tab Q4H PRN ORAL Moderate Pain (Pain Scale 4-6) 10/12/18 10:00 10/19/18 09:59 10/12/18 10:19 Amoxicillin/ Clavulanate Potassium (Augmentin) 500 mg DAILY ORAL 10/08/18 18:30 10/15/18 18:29 10/12/18 10:17 Carvedilol (Coreg) 6.25 mg EVERY 12 HOURS ORAL 10/12/18 21:00 11/11/18 20:59 Docusate Sodium (Colace) 100 mg THREE TIMES A DAY ORAL 10/05/18 13:00 11/04/18 12:59 10/11/18 17:40 Doxycycline Monohydrate (Vibramycin) 100 mg Q12HR ORAL 10/10/18 21:00 10/15/18 20:59 10/12/18 10:17 Epoetin David (Procrit (for ESRD on dialysis)) 10,000 units THU-THU-THU SUBQ 10/08/18 21:00 11/07/18 20:59 10/11/18 21:45 Folic Acid (Folate) 3 mg DAILY ORAL 10/05/18 11:04 11/04/18 11:03 10/12/18 10:18 Heparin Sodium (Porcine) (Heparin 5000 units/ml) 5,000 units EVERY 12 HOURS SUBQ 10/05/18 09:00 11/04/18 08:59 10/12/18 10:27 Levothyroxine Sodium (Synthroid) 25 mcg DAILY@0630 ORAL 10/06/18 06:30 11/05/18 06:29 10/11/18 06:29 Lisinopril (Zestril) 5 mg DAILY ORAL 10/08/18 10:47 11/07/18 10:46 10/12/18 10:24 Mirtazapine (Remeron) 15 mg BEDTIME ORAL 10/07/18 21:00 11/06/18 20:59 10/11/18 21:44 Ondansetron HCl (Zofran) 4 mg Q4HR PRN IVP Nausea & Vomiting 10/04/18 23:30 11/03/18 23:29 Pantoprazole (Protonix) 40 mg DAILY ORAL 10/05/18 11:02 11/04/18 11:01 10/12/18 10:18 Sevelamer Carbonate (Renvela) 1,600 mg THREE TIMES A DAY ORAL 10/06/18 18:00 11/04/18 12:59 10/12/18 13:29 Thiamine HCl (Vitamin B1) 100 mg DAILY ORAL 10/10/18 10:00 11/09/18 09:59 10/12/18 10:18 Vitamin B Complex/ Vit C/Folic Acid (Nephrovite) 1 tab DAILY ORAL 10/06/18 09:00 11/05/18 08:59 10/12/18 10:18 Ana De La Cruz MD Oct 12, 2018 14:32
[2018-10-12 16:00] VITALS: BP 144/80
[2018-10-12 20:00] VITALS: BP 146/79
--- NOTE | 2018-10-12 20:03 | General Progress Note ---
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 / HD - malnutrition - poor prognosis Recommendations - s/p IV Iron - EPO - PPI - follow labs - push po - no EGD/Colon , per patient wishes - can consider HCV eradication at later date Subjective Allergies: Coded Allergies: No Known Allergies (Unverified , 10/04/18) Subjective Feels same no abdominal symptoms appetite better Objective Last 24 Hour Vital Signs Date Time Temp Pulse Resp B/P (MAP) Pulse Ox O2 Delivery O2 Flow Rate FiO2 10/12/18 16:00 96.1 64 12 144/80 (101) 90 10/12/18 12:00 99.1 68 17 138/77 (97) 97 10/12/18 10:25 97.5 71 162/76 (104) 10/12/18 10:24 162/76 10/12/18 10:24 71 162/76 10/12/18 09:00 Room Air 10/12/18 04:00 97.6 65 16 148/83 (104) 97 10/12/18 00:00 97.8 69 17 138/69 (92) 97 10/11/18 21:44 74 141/76 10/11/18 21:00 Room Air Intake and Output 10/11/18 10/12/18 19:00 07:00 Intake Total 600 ml 780 ml Output Total 450 ml Balance 150 ml 780 ml Intake Oral 600 ml 780 ml Output Urine Total 450 ml # Voids 2 # Bowel Movements 1 Height (Feet): 5 Height (Inches): 8.00 Weight (Pounds): 121 Objective Thin NAD NCAT supple CTA RR soft ND no edema, (+) skin redness on thighs Cara Berkowitz MD Oct 12, 2018 20:03
[2018-10-12] MEDS: Carvedilol 6.25mg Tab ORAL SCH (20:28)
--- NOTE | 2018-10-12 21:15 | General Surgery Progress Note ---
General Surgery-Progress Note Subjective Additional Comments no acute events. resting comfortable. Objective Last 24 Hour Vital Signs Date Time Temp Pulse Resp B/P (MAP) Pulse Ox O2 Delivery O2 Flow Rate FiO2 10/12/18 20:28 65 146/79 10/12/18 16:00 96.1 64 12 144/80 (101) 90 10/12/18 12:00 99.1 68 17 138/77 (97) 97 10/12/18 10:25 97.5 71 162/76 (104) 10/12/18 10:24 162/76 10/12/18 10:24 71 162/76 10/12/18 09:00 Room Air 10/12/18 04:00 97.6 65 16 148/83 (104) 97 10/12/18 00:00 97.8 69 17 138/69 (92) 97 10/11/18 21:44 74 141/76 I&O Intake and Output 10/11/18 10/12/18 19:00 07:00 Intake Total 600 ml 780 ml Output Total 450 ml Balance 150 ml 780 ml Intake Oral 600 ml 780 ml Output Urine Total 450 ml # Voids 2 # Bowel Movements 1 Dressing: dry Wound: clean, dry, intact Drains: other Cardiovascular: RSR Respiratory: clear Abdomen: soft, flat, non-tender, present bowel sounds Extremities: edema, tenderness, no cyanosis, other Plan Problems: (1) Cellulitis Assessment & Plan: Multiple wounds noted on bilateral lower extremities and arms. some self inflicted and some skin rash left lower extremity cellulitis from resolving prior I&D/infection no drainage noted mild erythema patient expressed tenderness prior to even being touched and asks for pain meds leukocytosis resolved. improving. on HD via right tunneled catheter on exam no abscess noted wound stable and slowly healing patient non compliant with care of wounds as noted in history wash wound daily with NS apply skin protectant / therahoney apply non adherent dressing followed by kerlix wrap thank you will follow with Raymond Gomes Oct 12, 2018 21:15
--- NOTE | 2018-10-12 23:58 | Consultation ---
History of Present Illness General Chief Complaint: Generalized Weakness Present Illness HPI 62 yo male with mmp and hx of schizophrenia who is admitted for medical stablization the pt is having AH and uncooperative refusing meds and is angry. he denied si/hi Allergies: Coded Allergies: No Known Allergies (Unverified , 10/04/18) Medication History Unable to Obtain Active Prescriptions or Reported Meds Patient History Limited by: medical condition History Provided By: Patient, Medical Record, PMD Healthcare decision maker N Resuscitation status Full Code Advanced Directive on File Past Medical/Surgical History Past Medical/Surgical History: (1) Leukocytosis (2) Homeless (3) Missed dialysis (4) Anemia (5) Hepatitis C (6) Dialysis patient (7) FTT (failure to thrive) in adult (8) CHF (congestive heart failure) (9) Bacteremia (10) Cellulitis (11) Cardiomyopathy (12) ESRD on dialysis (13) Schizophrenia Review of Systems Psychiatric: Reports: prior hx, anxiety, depressed feelings, hallucinations Physical Exam General Appearance: alert, agitated, cachetic Neurologic: oriented x 3, responsive, depressed affect Last 24 Hour Vital Signs Date Time Temp Pulse Resp B/P (MAP) Pulse Ox O2 Delivery O2 Flow Rate FiO2 10/12/18 20:28 65 146/79 10/12/18 20:00 99.0 65 18 146/79 (101) 97 10/12/18 16:00 96.1 64 12 144/80 (101) 90 10/12/18 12:00 99.1 68 17 138/77 (97) 97 10/12/18 10:25 97.5 71 162/76 (104) 10/12/18 10:24 162/76 10/12/18 10:24 71 162/76 10/12/18 09:00 Room Air 10/12/18 04:00 97.6 65 16 148/83 (104) 97 10/12/18 00:00 97.8 69 17 138/69 (92) 97 Intake and Output 10/11/18 10/12/18 18:59 06:59 Intake Total 600 ml 780 ml Output Total 450 ml Balance 150 ml 780 ml Intake Oral 600 ml 780 ml Output Urine Total 450 ml # Voids 2 # Bowel Movements 1 Height (Feet): 5 Height (Inches): 8.00 Weight (Pounds): 121 Medications Current Medications Medications (Trade) Dose Ordered Sig/Mary Kay Route PRN Reason Start Time Stop Time Status Last Admin Dose Admin Acetaminophen (Tylenol) 650 mg Q6H PRN ORAL Mild Pain/Temp > 100.5 10/04/18 23:30 11/03/18 23:29 Acetaminophen/ Hydrocodone Bitart ([place] 5/325) 1 tab Q4H PRN ORAL Moderate Pain (Pain Scale 4-6) 10/12/18 10:00 10/19/18 09:59 10/12/18 22:05 Amoxicillin/ Clavulanate Potassium (Augmentin) 500 mg DAILY ORAL 10/08/18 18:30 10/15/18 18:29 10/12/18 10:17 Carvedilol (Coreg) 6.25 mg EVERY 12 HOURS ORAL 10/12/18 21:00 11/11/18 20:59 10/12/18 20:28 Docusate Sodium (Colace) 100 mg THREE TIMES A DAY ORAL 10/05/18 13:00 11/04/18 12:59 10/11/18 17:40 Doxycycline Monohydrate (Vibramycin) 100 mg Q12HR ORAL 10/10/18 21:00 10/15/18 20:59 10/12/18 20:28 Epoetin David (Procrit (for ESRD on dialysis)) 10,000 units THU-THU-THU SUBQ 10/08/18 21:00 11/07/18 20:59 10/11/18 21:45 Folic Acid (Folate) 3 mg DAILY ORAL 10/05/18 11:04 11/04/18 11:03 10/12/18 10:18 Heparin Sodium (Porcine) (Heparin 5000 units/ml) 5,000 units EVERY 12 HOURS SUBQ 10/05/18 09:00 11/04/18 08:59 10/12/18 20:41 Levothyroxine Sodium (Synthroid) 25 mcg DAILY@0630 ORAL 10/06/18 06:30 11/05/18 06:29 10/11/18 06:29 Lisinopril (Zestril) 5 mg DAILY ORAL 10/08/18 10:47 11/07/18 10:46 10/12/18 10:24 Mirtazapine (Remeron) 15 mg BEDTIME ORAL 10/07/18 21:00 11/06/18 20:59 10/12/18 20:28 Ondansetron HCl (Zofran) 4 mg Q4HR PRN IVP Nausea & Vomiting 10/04/18 23:30 11/03/18 23:29 Pantoprazole (Protonix) 40 mg DAILY ORAL 10/05/18 11:02 11/04/18 11:01 10/12/18 10:18 Sevelamer Carbonate (Renvela) 1,600 mg THREE TIMES A DAY ORAL 10/06/18 18:00 11/04/18 12:59 10/12/18 17:28 Thiamine HCl (Vitamin B1) 100 mg DAILY ORAL 10/10/18 10:00 11/09/18 09:59 10/12/18 10:18 Vitamin B Complex/ Vit C/Folic Acid (Nephrovite) 1 tab DAILY ORAL 10/06/18 09:00 11/05/18 08:59 10/12/18 10:18 Assessment/Plan Problem List: (1) Schizophrenia ICD Codes: F20.9 - Schizophrenia, unspecified SNOMED: 97133478 Status: unchanged Minal Nuñez MD Oct 12, 2018 23:58
[2018-10-13] VITALS: BP 145/76
[2018-10-13] MEDS: OLANZapine 10mg tab ORAL SCH ×2 (00:58→20:10)
[2018-10-13 04:00] VITALS: BP 149/82
[2018-10-13] MEDS: Levothyroxine 25mcg tab ORAL SCH (05:56)
--- NOTE | 2018-10-13 07:06 | General Progress Note ---
Assessment/Plan Assessment/Plan #. Anemia of kidney disease/esrd -- anemia panel reviewed, has end-stage renal disease, status post missed dialysis via PermCath. --> transfuse on prn basis, if hgb <7 --> no evidence for hemolysis noted --> Do not recommend iron at this time --> Cont po folic acid daily --> HD on permacath r arm --> getting epogen since hd and esrd, also vit b/folic acid --> hemoglobin electrophoresis is pending (SICKLE CELL SCREEN IS PENDING) #. Thrombocytopenia due to underlying Hepatitis C. has been chronic, unchanged --> afp 2.1, and trend plts as needed --> peripheral smear reviewed --> on abx as per ID --> ok for ppx if plt >50k w/ wither heparin --> Transfuse if Plt < 20k and fever, or if Plt < 10k without fever #. Leukocytosis likely due to infection. --> trend and monitor wbc for improvement --> Remains on IV abx #. Left thigh wound, imaging at [facility] reviewed. No evidence of abscess. ==> on abx as per id --> skin protectant per surg #. IV drug use. #. Homelessness. #. Systemic inflammatory response syndrome. #. Hypothyroidism. #. Hep C -- outpatient eradication #. ESRD on hd 3x a week GREATLY APPRECIATE CONSULTATION. Subjective Constitutional: Denies: no symptoms, chills, diaphoresis, fever, malaise, weakness, other HEENT: Denies: no symptoms, eye pain, blurred vision, tearing, double vision, ear pain, ear discharge, nose pain, nose congestion, throat pain, throat swelling, mouth pain, mouth swelling, other Cardiovascular: Denies: no symptoms, chest pain, edema, irregular heart rate, lightheadedness, palpitations, syncope, other Gastrointestinal/Abdominal: Denies: no symptoms, abdomen distended, abdominal pain, black stools, tarry stools, blood in stool, constipated, diarrhea, difficulty swallowing, nausea, poor appetite, poor fluid intake, rectal bleeding , vomiting, other Genitourinary: Denies: no symptoms, burning, discharge, frequency, flank pain, hematuria, incontinence, pain, urgency, other Neurologic/Psychiatric: Denies: no symptoms, anxiety, depressed, emotional problems, headache, numbness, paresthesia, pre-existing deficit, seizure, tingling, tremors, weakness, other Hematologic/Lymphatic: Denies: no symptoms, anemia, easy bleeding, easy bruising, other Allergies: Coded Allergies: No Known Allergies (Unverified , 10/04/18) Subjective Pt resting in bed. No acute events. H/H stable. Remains on IV abx. Objective Last 24 Hour Vital Signs Date Time Temp Pulse Resp B/P (MAP) Pulse Ox O2 Delivery O2 Flow Rate FiO2 10/13/18 04:00 98.0 65 18 149/82 (104) 98 10/13/18 00:00 98.5 63 18 145/76 (99) 98 10/12/18 21:00 Room Air 10/12/18 20:28 65 146/79 10/12/18 20:00 99.0 65 18 146/79 (101) 97 10/12/18 16:00 96.1 64 12 144/80 (101) 90 10/12/18 12:00 99.1 68 17 138/77 (97) 97 10/12/18 10:25 97.5 71 162/76 (104) 10/12/18 10:24 162/76 10/12/18 10:24 71 162/76 10/12/18 09:00 Room Air Intake and Output 10/12/18 10/13/18 19:00 07:00 Intake Total 660 ml Output Total 400 ml Balance 660 ml -400 ml Intake Oral 660 ml Output Urine Total 400 ml # Bowel Movements 1 Height (Feet): 5 Height (Inches): 8.00 Weight (Pounds): 117 Objective PHYSICAL EXAMINATION: GENERAL: elderly cachectic-looking gentleman in no respiratory distress NECK: Supple. No jugular venous distention. LUNGS: Ctab, Less coughing CARDIAC: Regular rhythm. A holosystolic regurgitant murmur ++ ABDOMEN: Soft and not. ++ bowel sounds. EXTREMITIES: There is no clubbing, no cyanosis. There is no edema. Back: He has extensive ischemic changes in the skin in the inner thigh on both legs with eschar formation. Gordo Jang MD Oct 13, 2018 07:06
[2018-10-13 08:00] VITALS: BP 149/81
[2018-10-13] MEDS: Thiamine 100mg tab ORAL SCH (08:32)
[2018-10-13] MEDS: Nephrovite tab (Rena-Vite) ORAL SCH (08:33)
[2018-10-13] MEDS: Lisinopril 2.5mg tab ORAL SCH (08:33)
[2018-10-13] MEDS: Docusate 100mg cap ORAL SCH ×3 (08:33→17:46)
[2018-10-13] MEDS: Carvedilol 6.25mg Tab ORAL SCH ×2 (08:33→20:10)
[2018-10-13] MEDS: Heparin 5000 units/ml inj SUBQ SCH ×2 (08:39→20:13)
--- NOTE | 2018-10-13 11:29 | Nephrology Progress Note ---
Assessment/Plan Problem List: (1) Cardiomyopathy (2) ESRD on dialysis (3) Bacteremia (4) Homeless (5) Leukocytosis Assessment: strep bacteremia Assessment ESRD- Cardiomyopathy Anemia of CKD Hyperkalemia Leukocytosis, ? Line infectio FTT (failure to thrive) in adult- malnutrition Homeless Plan Kayexelate as needed Iron- stop IV Iron as ferritin is over 1500 Folate- po Dialysis as needed, due 10/13 Phos binders Augmentin and Doxy 2D echo Septal hypokinesis.mid to distal Inferior wall hypokinesis Left ventricular ejection fraction estimated to be 40%. blood cultures per orders Subjective ROS Limited/Unobtainable: No Constitutional: Reports: malaise Objective Objective Last 24 Hour Vital Signs Date Time Temp Pulse Resp B/P (MAP) Pulse Ox O2 Delivery O2 Flow Rate FiO2 10/13/18 08:33 67 149/81 10/13/18 08:33 149/81 10/13/18 08:00 97.5 67 18 149/81 (103) 98 10/13/18 04:00 98.0 65 18 149/82 (104) 98 10/13/18 00:00 98.5 63 18 145/76 (99) 98 10/12/18 21:00 Room Air 10/12/18 20:28 65 146/79 10/12/18 20:00 99.0 65 18 146/79 (101) 97 10/12/18 16:00 96.1 64 12 144/80 (101) 90 10/12/18 12:00 99.1 68 17 138/77 (97) 97 Intake and Output 10/12/18 10/13/18 19:00 07:00 Intake Total 660 ml Output Total 400 ml Balance 660 ml -400 ml Intake Oral 660 ml Output Urine Total 400 ml # Bowel Movements 1 Height (Feet): 5 Height (Inches): 8.00 Weight (Pounds): 117 General Appearance: no apparent distress Objective no change David Meyers MD Oct 13, 2018 11:29
[2018-10-13 11:47] VITALS: BP 135/78
[2018-10-13 16:00] VITALS: BP 144/76
--- NOTE | 2018-10-13 16:06 | General Surgery Progress Note ---
General Surgery-Progress Note Subjective Additional Comments no acute events. comfortable. feels well. Objective Last 24 Hour Vital Signs Date Time Temp Pulse Resp B/P (MAP) Pulse Ox O2 Delivery O2 Flow Rate FiO2 10/13/18 11:47 97.8 70 18 135/78 (97) 98 10/13/18 08:33 67 149/81 10/13/18 08:33 149/81 10/13/18 08:00 97.5 67 18 149/81 (103) 98 10/13/18 04:00 98.0 65 18 149/82 (104) 98 10/13/18 00:00 98.5 63 18 145/76 (99) 98 10/12/18 21:00 Room Air 10/12/18 20:28 65 146/79 10/12/18 20:00 99.0 65 18 146/79 (101) 97 I&O Intake and Output 10/12/18 10/13/18 19:00 07:00 Intake Total 660 ml Output Total 400 ml Balance 660 ml -400 ml Intake Oral 660 ml Output Urine Total 400 ml # Bowel Movements 1 Dressing: dry Wound: dry Drains: other Cardiovascular: RSR Respiratory: clear Abdomen: soft, flat, non-tender, present bowel sounds Extremities: other Plan Problems: (1) Cellulitis Assessment & Plan: Multiple wounds noted on bilateral lower extremities and arms. some self inflicted and some skin rash left lower extremity cellulitis from resolving prior I&D/infection no drainage noted mild erythema patient expressed tenderness prior to even being touched and asks for pain meds leukocytosis resolved. improving. on HD via right tunneled catheter left lateral lower extremity wounds dry and eschar falling off with exposed subcutaneous tissue that is dry on exam no abscess noted wounds as above patient non compliant with care of wounds as noted in history - was more compliant today wash wound daily with NS apply skin protectant / therahoney apply non adherent dressing / Xeroform followed by kevin su thank you will follow with Raymond Gomes Oct 13, 2018 16:06
--- NOTE | 2018-10-13 18:34 | General Progress Note ---
Assessment/Plan Problem List: (1) Hepatitis C ICD Codes: B19.20 - Unspecified viral hepatitis C without hepatic coma SNOMED: 87703147 (2) Anemia ICD Codes: D64.9 - Anemia, unspecified SNOMED: 563656549 (3) Dialysis patient ICD Codes: Z99.2 - Dependence on renal dialysis SNOMED: 628320524 (4) FTT (failure to thrive) in adult ICD Codes: R62.7 - Adult failure to thrive SNOMED: 523854252 (5) Cellulitis ICD Codes: L03.90 - Cellulitis, unspecified SNOMED: 889377708 Qualifiers: Qualified Codes: L03.116 - Cellulitis of left lower limb (6) Leukocytosis ICD Codes: D72.829 - Elevated white blood cell count, unspecified SNOMED: 803005039, 287809446 (7) Homeless ICD Codes: Z59.0 - Homelessness SNOMED: 12720269, 193831025 (8) Missed dialysis SNOMED: 480638781 (9) CHF (congestive heart failure) ICD Codes: I50.9 - Heart failure, unspecified SNOMED: 41768842 (10) Bacteremia ICD Codes: R78.81 - Bacteremia SNOMED: 1952450 Assessment/Plan ASSESSMENT: The patient is a 62-year-old homeless male with a history of IV drug use; hepatitis C; hepatopathy; end-stage renal disease, on dialysis via tunneled cath; and noncompliance with missed dialysis, presenting with weakness, failure to thrive, and likely infection with leukocytosis and systemic inflammatory response syndrome/sepsis PROBLEM LIST: 1. End-stage renal disease, status post missed dialysis via PermCath. 2. Anemia, acute on chronic, with evidence of iron deficiency. 3. Hepatitis C. 4. Left thigh wound, imaging at [facility] reviewed. No evidence of abscess. 5. IV drug use. 6. Homelessness. 7. Systemic inflammatory response syndrome/sepsis 8. Leukocytosis. 9. Hypothyroidism 10. GPC bacteremia, likely contaminant 11. CHF with systolic dysfunction TREATMENT PLAN: 1. No IV, Augmentin/Doxy per ID - pt declines many doses 2. F/U repeat Cx's 3. HD per renal 4. Surgery recs 5. wound care 6. Monitor hemoglobin and hematocrit, transfuse PRN Hb < 7, refuses EPO, F/U plasma cell labs 7. F/U GI and heme recs 8. F/U cardiology recs, medical management of CHF, ischemia eval at some point 9. Social work evaluation to assist with placement. D/W SW, working with insurance plan RE: SNF placement 10. Pain control/supportive care. 11. Continue Synthroid 12. Multivitamins, thiamine, and folate. 13. DVT prophylaxis, heparin subcutaneous. 14. Diabetic renal diet. 15. The patient is a Full Code. 16. Psych recs Subjective Allergies: Coded Allergies: No Known Allergies (Unverified , 10/04/18) Subjective AFVSS, stable on RA [employer] notes reviewed Declines endoscopy, declines removal of tunneled cath Declines multiple meds No F/C/CP/SOB/N/V/D Objective Last 24 Hour Vital Signs Date Time Temp Pulse Resp B/P (MAP) Pulse Ox O2 Delivery O2 Flow Rate FiO2 10/13/18 16:00 98.7 71 18 144/76 (98) 98 10/13/18 11:47 97.8 70 18 135/78 (97) 98 10/13/18 08:33 67 149/81 10/13/18 08:33 149/81 10/13/18 08:00 97.5 67 18 149/81 (103) 98 10/13/18 04:00 98.0 65 18 149/82 (104) 98 10/13/18 00:00 98.5 63 18 145/76 (99) 98 10/12/18 21:00 Room Air 10/12/18 20:28 65 146/79 10/12/18 20:00 99.0 65 18 146/79 (101) 97 Intake and Output 10/12/18 10/13/18 19:00 07:00 Intake Total 660 ml Output Total 400 ml Balance 660 ml -400 ml Intake Oral 660 ml Output Urine Total 400 ml # Bowel Movements 1 Height (Feet): 5 Height (Inches): 8.00 Weight (Pounds): 117 General Appearance: no apparent distress, cachetic EENT: PERRL/EOMI Neck: non-tender, normal alignment, supple Cardiovascular: normal peripheral pulses, normal rate, regular rhythm Respiratory/Chest: chest wall non-tender, lungs clear, normal breath sounds Abdomen: normal bowel sounds, non tender, soft, no organomegaly, no mass Edema: no edema noted Arm (L), no edema noted Arm (R), no edema noted Leg (L), no edema noted Leg (R), no edema noted Pedal (L), no edema noted Pedal (R), no edema noted Generalized Michael Coleman MD Oct 13, 2018 18:34
[2018-10-13 20:00] VITALS: BP 150/80
[2018-10-13] MEDS: Norco 5mg/325mg tab ORAL PRN (20:12)
[2018-10-13] MEDS: Epogen (for ESRD on dialysis) SUBQ SCH (20:20)
--- NOTE | 2018-10-13 23:20 | General Progress Note ---
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 / HD - malnutrition - poor prognosis Recommendations - s/p IV Iron - EPO - PPI - follow labs - push po - no EGD/Colon , per patient wishes - can consider HCV eradication at later date Subjective Allergies: Coded Allergies: No Known Allergies (Unverified , 10/04/18) Subjective Feels same no abdominal symptoms appetite fair Objective Last 24 Hour Vital Signs Date Time Temp Pulse Resp B/P (MAP) Pulse Ox O2 Delivery O2 Flow Rate FiO2 10/13/18 21:00 Room Air 10/13/18 20:10 79 150/80 10/13/18 16:00 98.7 71 18 144/76 (98) 98 10/13/18 11:47 97.8 70 18 135/78 (97) 98 10/13/18 08:33 67 149/81 10/13/18 08:33 149/81 10/13/18 08:00 97.5 67 18 149/81 (103) 98 10/13/18 04:00 98.0 65 18 149/82 (104) 98 10/13/18 00:00 98.5 63 18 145/76 (99) 98 Intake and Output 10/12/18 10/13/18 19:00 07:00 Intake Total 660 ml Output Total 400 ml Balance 660 ml -400 ml Intake Oral 660 ml Output Urine Total 400 ml # Bowel Movements 1 Height (Feet): 5 Height (Inches): 8.00 Weight (Pounds): 117 Objective Thin NAD NCAT supple CTA RR soft ND no edema, (+) skin redness on thighs Cara Berkowitz MD Oct 13, 2018 23:20
[2018-10-14] VITALS: BP 145/78
[2018-10-14 04:00] VITALS: BP 142/79
[2018-10-14] MEDS: Levothyroxine 25mcg tab ORAL SCH (06:17)
--- NOTE | 2018-10-14 06:58 | General Progress Note ---
Assessment/Plan Assessment/Plan #. Anemia of kidney disease/esrd -- anemia panel reviewed, has end-stage renal disease, status post missed dialysis via PermCath. --> transfuse on prn basis, if hgb <7 --> no evidence for hemolysis noted --> Do not recommend iron at this time --> Cont po folic acid daily --> HD on permacath r arm --> getting epogen since hd and esrd, also vit b/folic acid --> hemoglobin electrophoresis is normal, no sickle cell trait noted #. Thrombocytopenia due to underlying Hepatitis C. has been chronic, unchanged --> afp 2.1, and trend plts as needed --> peripheral smear reviewed --> on abx as per ID --> ok for ppx if plt >50k w/ wither heparin --> Transfuse if Plt < 20k and fever, or if Plt < 10k without fever #. Leukocytosis likely due to infection. --> trend and monitor wbc for improvement --> Remains on IV abx #. Left thigh wound, imaging at [facility] reviewed. No evidence of abscess. ==> on abx as per id --> skin protectant per surg #. IV drug use. #. Homelessness. #. Systemic inflammatory response syndrome. #. Hypothyroidism. #. Hep C -- outpatient eradication #. ESRD on hd 3x a week GREATLY APPRECIATE CONSULTATION. Subjective Constitutional: Denies: no symptoms, chills, diaphoresis, fever, malaise, weakness, other HEENT: Denies: no symptoms, eye pain, blurred vision, tearing, double vision, ear pain, ear discharge, nose pain, nose congestion, throat pain, throat swelling, mouth pain, mouth swelling, other Cardiovascular: Denies: no symptoms, chest pain, edema, irregular heart rate, lightheadedness, palpitations, syncope, other Respiratory: Denies: no symptoms, cough, orthopnea, shortness of breath, SOB with excertion, SOB at rest, sputum, stridor, wheezing, other Gastrointestinal/Abdominal: Denies: no symptoms, abdomen distended, abdominal pain, black stools, tarry stools, blood in stool, constipated, diarrhea, difficulty swallowing, nausea, poor appetite, poor fluid intake, rectal bleeding , vomiting, other Genitourinary: Denies: no symptoms, burning, discharge, frequency, flank pain, hematuria, incontinence, pain, urgency, other Neurologic/Psychiatric: Denies: no symptoms, anxiety, depressed, emotional problems, headache, numbness, paresthesia, pre-existing deficit, seizure, tingling, tremors, weakness, other Endocrine: Denies: no symptoms, excessive sweating, flushing, intolerance to cold, intolerance to heat, increased hunger, increased thirst, increased urine, unexplained weight gain, unexplained weight loss, other Hematologic/Lymphatic: Denies: no symptoms, anemia, easy bleeding, easy bruising, other Allergies: Coded Allergies: No Known Allergies (Unverified , 10/04/18) Subjective Pt resting in bed comfortably. No acute events. H/H stable. refusing care occasionally. Objective Last 24 Hour Vital Signs Date Time Temp Pulse Resp B/P (MAP) Pulse Ox O2 Delivery O2 Flow Rate FiO2 10/14/18 04:00 70 18 142/79 (100) 99 10/14/18 00:00 75 16 145/78 (100) 98 10/13/18 21:00 Room Air 10/13/18 20:10 79 150/80 10/13/18 20:00 98.0 79 16 150/80 (103) 95 10/13/18 16:00 98.7 71 18 144/76 (98) 98 10/13/18 11:47 97.8 70 18 135/78 (97) 98 10/13/18 08:33 67 149/81 10/13/18 08:33 149/81 10/13/18 08:00 97.5 67 18 149/81 (103) 98 Intake and Output 10/13/18 10/14/18 18:59 06:59 Intake Total 600 ml Output Total 2000 ml 450 ml Balance -1400 ml -450 ml Intake Oral 600 ml Output Urine Total 450 ml Hemodialysis UF 2000 ml Height (Feet): 5 Height (Inches): 8.00 Weight (Pounds): 113 Objective PHYSICAL EXAMINATION: GENERAL: elderly cachectic-looking gentleman in no respiratory distress NECK: Supple. No jugular venous distention. LUNGS: Ctab, Less coughing CARDIAC: Regular rhythm. A holosystolic regurgitant murmur ++ ABDOMEN: Soft and not. ++ bowel sounds. EXTREMITIES: There is no clubbing, no cyanosis. There is no edema. Back: He has extensive ischemic changes in the skin in the inner thigh on both legs with eschar formation. Gordo Jang MD Oct 14, 2018 06:58
[2018-10-14 08:00] VITALS: BP 155/83
[2018-10-14] MEDS: Lisinopril 2.5mg tab ORAL SCH (08:50)
[2018-10-14] MEDS: Nephrovite tab (Rena-Vite) ORAL SCH (08:50)
[2018-10-14] MEDS: Carvedilol 6.25mg Tab ORAL SCH ×2 (08:51→21:02)
[2018-10-14] MEDS: Norco 5mg/325mg tab ORAL PRN ×2 (08:53→20:53)
[2018-10-14] MEDS: Docusate 100mg cap ORAL SCH ×3 (08:56→18:00)
[2018-10-14] MEDS: Heparin 5000 units/ml inj SUBQ SCH ×2 (08:56→20:57)
[2018-10-14] MEDS: Thiamine 100mg tab ORAL SCH (09:07)
--- NOTE | 2018-10-14 11:45 | General Progress Note ---
Assessment/Plan Problem List: (1) Schizophrenia ICD Codes: F20.9 - Schizophrenia, unspecified SNOMED: 06627629 Status: stable Assessment/Plan Zyprexa 10mg po qhs Remeron 7.5mg qhs provided ro/st Subjective Neurologic/Psychiatric: Reports: anxiety, depressed Allergies: Coded Allergies: No Known Allergies (Unverified , 10/04/18) Subjective the pt has AH and has been calmer more cooperative no behaviors Objective Last 24 Hour Vital Signs Date Time Temp Pulse Resp B/P (MAP) Pulse Ox O2 Delivery O2 Flow Rate FiO2 10/14/18 08:51 95 154/83 10/14/18 08:50 154/83 10/14/18 08:00 97.8 98 18 155/83 (107) 98 10/14/18 04:00 70 18 142/79 (100) 99 10/14/18 00:00 75 16 145/78 (100) 98 10/13/18 21:00 Room Air 10/13/18 20:10 79 150/80 10/13/18 20:00 98.0 79 16 150/80 (103) 95 10/13/18 16:00 98.7 71 18 144/76 (98) 98 10/13/18 11:47 97.8 70 18 135/78 (97) 98 Intake and Output 10/13/18 10/14/18 19:00 07:00 Intake Total 600 ml Output Total 2000 ml 450 ml Balance -1400 ml -450 ml Intake Oral 600 ml Output Urine Total 450 ml Hemodialysis UF 2000 ml Height (Feet): 5 Height (Inches): 8.00 Weight (Pounds): 113 General Appearance: no apparent distress, alert, cachetic Neurologic: oriented x 3, responsive, depressed affect Minal Nuñez MD Oct 14, 2018 11:45
[2018-10-14 12:00] VITALS: BP 148/79
--- NOTE | 2018-10-14 13:03 | Nephrology Progress Note ---
Assessment/Plan Problem List: (1) Cardiomyopathy (2) ESRD on dialysis (3) Bacteremia (4) Homeless (5) Leukocytosis Assessment: strep bacteremia Assessment ESRD- Cardiomyopathy Anemia of CKD Hyperkalemia Leukocytosis, ? Line infectio FTT (failure to thrive) in adult- malnutrition Homeless Plan Kayexelate as needed Iron- stop IV Iron as ferritin is over 1500 Folate- po Dialysis as needed, done 10/13 next 10/15 Phos binders Augmentin and Doxy 2D echo Septal hypokinesis.mid to distal Inferior wall hypokinesis Left ventricular ejection fraction estimated to be 40%. blood cultures per orders Subjective ROS Limited/Unobtainable: No Constitutional: Reports: malaise Objective Objective Last 24 Hour Vital Signs Date Time Temp Pulse Resp B/P (MAP) Pulse Ox O2 Delivery O2 Flow Rate FiO2 10/14/18 09:00 Room Air 10/14/18 08:51 95 154/83 10/14/18 08:50 154/83 10/14/18 08:00 97.8 98 18 155/83 (107) 98 10/14/18 04:00 70 18 142/79 (100) 99 10/14/18 00:00 75 16 145/78 (100) 98 10/13/18 21:00 Room Air 10/13/18 20:10 79 150/80 10/13/18 20:00 98.0 79 16 150/80 (103) 95 10/13/18 16:00 98.7 71 18 144/76 (98) 98 Intake and Output 10/13/18 10/14/18 19:00 07:00 Intake Total 600 ml Output Total 2000 ml 450 ml Balance -1400 ml -450 ml Intake Oral 600 ml Output Urine Total 450 ml Hemodialysis UF 2000 ml Height (Feet): 5 Height (Inches): 8.00 Weight (Pounds): 113 General Appearance: no apparent distress Objective no change David Meyers MD Oct 14, 2018 13:03
--- NOTE | 2018-10-14 13:41 | Infectious Diseases Prog Note ---
Assessment/Plan Assessment/Plan ASSESSMENT AND PLAN: 1. sepsis, ? 2 types streptococcus species positive blood cultures likely contaminant, left LE wound with cellulitis, right leg wound, leukocytosis, sirs hx of left LE/hip abscess, s/p I/D - oral doxycycline 100 mg bid and augmentin 500 mg q day x 1 day - surveillance blood cultures negative, echo without vegetation - leukocytosis resolved and cellulitis better - wound care per surgery, no debridement for now - monitor labs and wbc count wnl now - d/w surgery, wounds stable 2. The patient has end-stage renal disease, on hemodialysis. 3. hypothyroidism - he is on levothyroxine. 4. Anemia 5. Thrombocytopenia. 6. Hepatitis C infection. 7. Hepatocellular disease. 8. Failure to thrive. 9. End-stage renal disease, hemodialysis. 10. Noncompliance with dialysis. 11. No history of hypertension or diabetes. 12. History of abscess status post incision and drainage. 13. No known drug allergies.. 14. Social positive for intravenous drug abuse. 15. Family history is Noncontributory. 16. Case discussed with RN. 17. Case discussed with primary consultants. 18. MAR was noted. 19. Notes and records were noted. 20. Orders were entered. Subjective Constitutional: Reports: fatigue; Denies: fever HEENT: Denies: congestion Respiratory: Denies: shortness of breath Cardiovascular: Denies: chest pain Gastrointestinal/Abdominal: Denies: nausea, vomiting, diarrhea Genitourinary: Reports: other - no giron Neurologic: Denies: headache Psychiatric: Denies: depression Skin: Denies: rash Hematologic: Denies: bleeding Musculoskeletal: Denies: pain Allergies: Coded Allergies: No Known Allergies (Unverified , 10/04/18) Objective Vital Signs Last 24 Hour Vital Signs Date Time Temp Pulse Resp B/P (MAP) Pulse Ox O2 Delivery O2 Flow Rate FiO2 10/14/18 09:00 Room Air 10/14/18 08:51 95 154/83 10/14/18 08:50 154/83 10/14/18 08:00 97.8 98 18 155/83 (107) 98 10/14/18 04:00 70 18 142/79 (100) 99 10/14/18 00:00 75 16 145/78 (100) 98 10/13/18 21:00 Room Air 10/13/18 20:10 79 150/80 10/13/18 20:00 98.0 79 16 150/80 (103) 95 10/13/18 16:00 98.7 71 18 144/76 (98) 98 Height (Feet): 5 Height (Inches): 8.00 Weight (Pounds): 113 General Appearance: no acute distress HEENT: normocephalic, atraumatic, anicteric, mucous membranes moist Respiratory/Chest: lungs clear, normal breath sounds, no respiratory distress, no accessory muscle use Cardiovascular: normal rate, regular rhythm, no gallop/murmur, no JVD Abdomen: normal bowel sounds, soft, non tender, no organomegaly, non distended Genitourinary: other - no giron, hd pt Extremities: no cyanosis Skin: no rash, other - wounds covered Neurologic/Psychiatric: manufacturer's representative II-XII grossly normal, alert, responsive Lymphatic: no neck adenopathy Musculoskeletal: no effusion Objective Chest x-ray - Findings: There is a right chest tunneled dialysis catheter in place. There is some atelectasis at the right lung base. The lungs and pleural spaces are otherwise clear. The heart size is upper limits of normal. Aorta is tortuous and calcified. Upper mediastinum is unremarkable Impression: Minimal right basilar atelectasis No acute process otherwise Tunneled dialysis catheter Microbiology Date/Time Source Procedure Growth Status 10/06/18 14:30 Blood Blood Culture - Final NO GROWTH AFTER 5 DAYS Complete 10/04/18 21:15 Nasal Nares MRSA Culture - Final NO METHICILLIN RESISTANT STAPH AUREUS... Complete 10/05/18 08:30 Urine,Clean Catch Urine Culture - Final NO GROWTH AFTER 48 HOURS Complete 10/05/18 21:00 Rectum VRE Culture - Final NO VANCOMYCIN RESISTANT ENTEROCOCCUS ... Complete wbc - 9.5 hgb - 7.7 cr - 6.7 Current Medications Medications (Trade) Dose Ordered Sig/Mary Kay Route PRN Reason Start Time Stop Time Status Last Admin Dose Admin Acetaminophen (Tylenol) 650 mg Q6H PRN ORAL Mild Pain/Temp > 100.5 10/04/18 23:30 11/03/18 23:29 Acetaminophen/ Hydrocodone Bitart ([place] 5/325) 1 tab Q4H PRN ORAL Moderate Pain (Pain Scale 4-6) 10/12/18 10:00 10/19/18 09:59 10/14/18 08:53 Amoxicillin/ Clavulanate Potassium (Augmentin) 500 mg DAILY ORAL 10/08/18 18:30 10/15/18 18:29 10/14/18 08:50 Carvedilol (Coreg) 6.25 mg EVERY 12 HOURS ORAL 10/12/18 21:00 11/11/18 20:59 10/14/18 08:51 Docusate Sodium (Colace) 100 mg THREE TIMES A DAY ORAL 10/05/18 13:00 11/04/18 12:59 10/13/18 17:46 Doxycycline Monohydrate (Vibramycin) 100 mg Q12HR ORAL 10/10/18 21:00 10/15/18 20:59 10/14/18 08:51 Epoetin David (Procrit (for ESRD on dialysis)) 10,000 units THU-THU-THU SUBQ 10/08/18 21:00 11/07/18 20:59 10/13/18 20:20 Fluoxetine HCl (PROzac) 20 mg DAILY ORAL 10/13/18 09:00 11/12/18 08:59 10/14/18 08:53 Folic Acid (Folate) 3 mg DAILY ORAL 10/05/18 11:04 11/04/18 11:03 10/14/18 08:52 Heparin Sodium (Porcine) (Heparin 5000 units/ml) 5,000 units EVERY 12 HOURS SUBQ 10/05/18 09:00 11/04/18 08:59 10/13/18 20:13 Levothyroxine Sodium (Synthroid) 25 mcg DAILY@0630 ORAL 10/06/18 06:30 11/05/18 06:29 10/14/18 06:17 Lisinopril (Zestril) 5 mg DAILY ORAL 10/08/18 10:47 11/07/18 10:46 10/14/18 08:50 Olanzapine (ZyPREXA) 10 mg BEDTIME ORAL 10/13/18 00:30 11/12/18 00:29 10/13/18 20:10 Ondansetron HCl (Zofran) 4 mg Q4HR PRN IVP Nausea & Vomiting 10/04/18 23:30 11/03/18 23:29 Pantoprazole (Protonix) 40 mg DAILY ORAL 10/05/18 11:02 11/04/18 11:01 10/14/18 08:48 Sevelamer Carbonate (Renvela) 1,600 mg THREE TIMES A DAY ORAL 10/06/18 18:00 11/04/18 12:59 10/14/18 13:29 Thiamine HCl (Vitamin B1) 100 mg DAILY ORAL 10/10/18 10:00 11/09/18 09:59 10/14/18 09:07 Vitamin B Complex/ Vit C/Folic Acid (Nephrovite) 1 tab DAILY ORAL 10/06/18 09:00 11/05/18 08:59 10/14/18 08:50 Ana De La Cruz MD Oct 14, 2018 13:41
[2018-10-14 16:00] VITALS: BP 145/81
--- NOTE | 2018-10-14 16:47 | General Surgery Progress Note ---
General Surgery-Progress Note Subjective Additional Comments no acute events. comfortable Objective Last 24 Hour Vital Signs Date Time Temp Pulse Resp B/P (MAP) Pulse Ox O2 Delivery O2 Flow Rate FiO2 10/14/18 09:00 Room Air 10/14/18 08:51 95 154/83 10/14/18 08:50 154/83 10/14/18 08:00 97.8 98 18 155/83 (107) 98 10/14/18 04:00 70 18 142/79 (100) 99 10/14/18 00:00 75 16 145/78 (100) 98 10/13/18 21:00 Room Air 10/13/18 20:10 79 150/80 10/13/18 20:00 98.0 79 16 150/80 (103) 95 I&O Intake and Output 10/13/18 10/14/18 19:00 07:00 Intake Total 600 ml Output Total 2000 ml 450 ml Balance -1400 ml -450 ml Intake Oral 600 ml Output Urine Total 450 ml Hemodialysis UF 2000 ml Dressing: saturated Wound: clean, other Drains: other Cardiovascular: RSR Respiratory: clear Abdomen: soft, flat, non-tender, present bowel sounds Extremities: other Plan Problems: (1) Cellulitis Assessment & Plan: Multiple wounds noted on bilateral lower extremities and arms. some self inflicted and some skin rash left lower extremity cellulitis from resolving prior I&D/infection no drainage noted mild erythema patient expressed tenderness prior to even being touched and asks for pain meds leukocytosis resolved. improving. on HD via right tunneled catheter left lateral lower extremity wounds dry and eschar falling off with exposed subcutaneous tissue that is dry on exam no abscess noted wounds as above patient non compliant with care of wounds as noted in history - was more compliant today wash wound daily with NS apply skin protectant / therahoney apply non adherent dressing / Xeroform followed by kevin su thank you will follow with Raymond Gomes Oct 14, 2018 16:47
[2018-10-14 20:00] VITALS: BP 141/81
[2018-10-14] MEDS: OLANZapine 10mg tab ORAL SCH (20:53)
--- NOTE | 2018-10-14 22:06 | Pulmonology Progress Note ---
Assessment/Plan Assessment/Plan Pulmonary Progress Note: Assessment/Plan Problem List: (1) Hepatitis C ICD Codes: B19.20 - Unspecified viral hepatitis C without hepatic coma SNOMED: 87387669 (2) Anemia ICD Codes: D64.9 - Anemia, unspecified SNOMED: 094088078 (3) Dialysis patient ICD Codes: Z99.2 - Dependence on renal dialysis SNOMED: 198452337 (4) FTT (failure to thrive) in adult ICD Codes: R62.7 - Adult failure to thrive SNOMED: 528501524 (5) Cellulitis ICD Codes: L03.90 - Cellulitis, unspecified SNOMED: 388331994 Qualifiers: Qualified Codes: L03.116 - Cellulitis of left lower limb (6) Leukocytosis ICD Codes: D72.829 - Elevated white blood cell count, unspecified SNOMED: 320150394, 779702341 (7) Homeless ICD Codes: Z59.0 - Homelessness SNOMED: 05925410, 098752737 (8) Missed dialysis SNOMED: 326468085 (9) CHF (congestive heart failure) ICD Codes: I50.9 - Heart failure, unspecified SNOMED: 34527287 (10) Bacteremia ICD Codes: R78.81 - Bacteremia SNOMED: 2412013 Assessment/Plan ASSESSMENT: The patient is a 62-year-old homeless male with a history of IV drug use; hepatitis C; hepatopathy; end-stage renal disease, on dialysis via tunneled cath; and noncompliance with missed dialysis, presenting with weakness, failure to thrive, and likely infection with leukocytosis and systemic inflammatory response syndrome/sepsis. No new complaints. PROBLEM LIST: 1. End-stage renal disease, status post missed dialysis via PermCath. 2. Anemia, acute on chronic, with evidence of iron deficiency. 3. Hepatitis C. 4. Left thigh wound, imaging at [facility] reviewed. No evidence of abscess. 5. IV drug use. 6. Homelessness. 7. Systemic inflammatory response syndrome/sepsis 8. Leukocytosis. 9. Hypothyroidism 10. GPC bacteremia, likely contaminant 11. CHF with systolic dysfunction TREATMENT PLAN: 1. No IV, Augmentin/Doxy per ID - pt declines many doses 2. F/U repeat Cx's 3. HD per renal 4. Surgery recs 5. wound care 6. Monitor hemoglobin and hematocrit, transfuse PRN Hb < 7, refuses EPO, F/U plasma cell labs 7. F/U GI and heme recs 8. F/U cardiology recs, medical management of CHF, ischemia eval at some point 9. Social work evaluation to assist with placement. D/W SW, working with insurance plan RE: SNF placement 10. Pain control/supportive care. 11. Continue Synthroid 12. Multivitamins, thiamine, and folate. 13. DVT prophylaxis, heparin subcutaneous. 14. Diabetic renal diet. 15. The patient is a Full Code. 16. Psych recs Subjective Allergies: Coded Allergies: No Known Allergies (Unverified , 10/04/18) Subjective AFVSS, stable on RA Senior Account Representative notes reviewed Declines endoscopy, declines removal of tunneled cath Declines multiple meds No F/C/CP/SOB/N/V/D Objective Last 24 Hour Vital Signs Noted Height (Feet): 5 Height (Inches): 8.00 Weight (Pounds): 117 General Appearance: no apparent distress, cachetic EENT: PERRL/EOMI Neck: non-tender, normal alignment, supple Cardiovascular: normal peripheral pulses, normal rate, regular rhythm Respiratory/Chest: chest wall non-tender, lungs clear, normal breath sounds Abdomen: normal bowel sounds, non tender, soft, no organomegaly, no mass Edema: no edema noted Arm (L), no edema noted Arm (R), no edema noted Leg (L), no edema noted Leg (R), no edema noted Pedal (L), no edema noted Pedal (R), no edema noted Generalized Subjective ROS Limited/Unobtainable: No Allergies: Coded Allergies: No Known Allergies (Unverified , 10/04/18) Objective Last 24 Hour Vital Signs Date Time Temp Pulse Resp B/P (MAP) Pulse Ox O2 Delivery O2 Flow Rate FiO2 10/14/18 21:02 69 141/81 10/14/18 16:00 98.0 67 16 145/81 (102) 98 10/14/18 12:00 98.2 95 16 148/79 (102) 98 10/14/18 09:00 Room Air 10/14/18 08:51 95 154/83 10/14/18 08:50 154/83 10/14/18 08:00 97.8 98 18 155/83 (107) 98 10/14/18 04:00 70 18 142/79 (100) 99 10/14/18 00:00 75 16 145/78 (100) 98 Intake and Output 10/13/18 10/14/18 19:00 07:00 Intake Total 600 ml Output Total 2000 ml 450 ml Balance -1400 ml -450 ml Intake Oral 600 ml Output Urine Total 450 ml Hemodialysis UF 2000 ml Current Medications Medications (Trade) Dose Ordered Sig/Mary Kay Route PRN Reason Start Time Stop Time Status Last Admin Dose Admin Acetaminophen (Tylenol) 650 mg Q6H PRN ORAL Mild Pain/Temp > 100.5 10/04/18 23:30 11/03/18 23:29 Acetaminophen/ Hydrocodone Bitart ([place] 5/325) 1 tab Q4H PRN ORAL Moderate Pain (Pain Scale 4-6) 10/12/18 10:00 10/19/18 09:59 10/14/18 20:53 Amoxicillin/ Clavulanate Potassium (Augmentin) 500 mg DAILY ORAL 10/08/18 18:30 10/15/18 18:29 10/14/18 08:50 Carvedilol (Coreg) 6.25 mg EVERY 12 HOURS ORAL 10/12/18 21:00 11/11/18 20:59 10/14/18 21:02 Docusate Sodium (Colace) 100 mg THREE TIMES A DAY ORAL 10/05/18 13:00 11/04/18 12:59 10/13/18 17:46 Doxycycline Monohydrate (Vibramycin) 100 mg Q12HR ORAL 10/10/18 21:00 10/15/18 20:59 10/14/18 20:53 Epoetin David (Procrit (for ESRD on dialysis)) 10,000 units THU-THU-THU SUBQ 10/08/18 21:00 11/07/18 20:59 10/13/18 20:20 Fluoxetine HCl (PROzac) 20 mg DAILY ORAL 10/13/18 09:00 11/12/18 08:59 10/14/18 08:53 Folic Acid (Folate) 3 mg DAILY ORAL 10/05/18 11:04 11/04/18 11:03 10/14/18 08:52 Heparin Sodium (Porcine) (Heparin 5000 units/ml) 5,000 units EVERY 12 HOURS SUBQ 10/05/18 09:00 11/04/18 08:59 10/14/18 20:57 Levothyroxine Sodium (Synthroid) 25 mcg DAILY@0630 ORAL 10/06/18 06:30 11/05/18 06:29 10/14/18 06:17 Lisinopril (Zestril) 5 mg DAILY ORAL 10/08/18 10:47 11/07/18 10:46 10/14/18 08:50 Olanzapine (ZyPREXA) 10 mg BEDTIME ORAL 10/13/18 00:30 11/12/18 00:29 10/14/18 20:53 Ondansetron HCl (Zofran) 4 mg Q4HR PRN IVP Nausea & Vomiting 10/04/18 23:30 11/03/18 23:29 Pantoprazole (Protonix) 40 mg DAILY ORAL 10/05/18 11:02 11/04/18 11:01 10/14/18 08:48 Sevelamer Carbonate (Renvela) 1,600 mg THREE TIMES A DAY ORAL 10/06/18 18:00 11/04/18 12:59 10/14/18 18:55 Thiamine HCl (Vitamin B1) 100 mg DAILY ORAL 10/10/18 10:00 11/09/18 09:59 10/14/18 09:07 Vitamin B Complex/ Vit C/Folic Acid (Nephrovite) 1 tab DAILY ORAL 10/06/18 09:00 11/05/18 08:59 10/14/18 08:50 Miguel Kirby MD Oct 14, 2018 22:06
--- NOTE | 2018-10-14 23:25 | General Progress Note ---
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 / HD - malnutrition - poor prognosis Recommendations - s/p IV Iron - EPO - PPI - follow labs - push po - no EGD/Colon , per patient wishes - can consider HCV eradication at later date Subjective Allergies: Coded Allergies: No Known Allergies (Unverified , 10/04/18) Subjective Feels same no abdominal symptoms appetite fair Objective Last 24 Hour Vital Signs Date Time Temp Pulse Resp B/P (MAP) Pulse Ox O2 Delivery O2 Flow Rate FiO2 10/14/18 21:02 69 141/81 10/14/18 20:00 98.0 69 19 141/81 (101) 99 10/14/18 16:00 98.0 67 16 145/81 (102) 98 10/14/18 12:00 98.2 95 16 148/79 (102) 98 10/14/18 09:00 Room Air 10/14/18 08:51 95 154/83 10/14/18 08:50 154/83 10/14/18 08:00 97.8 98 18 155/83 (107) 98 10/14/18 04:00 70 18 142/79 (100) 99 10/14/18 00:00 75 16 145/78 (100) 98 Intake and Output 10/13/18 10/14/18 19:00 07:00 Intake Total 600 ml Output Total 2000 ml 450 ml Balance -1400 ml -450 ml Intake Oral 600 ml Output Urine Total 450 ml Hemodialysis UF 2000 ml Height (Feet): 5 Height (Inches): 8.00 Weight (Pounds): 185 Objective Thin NAD NCAT supple CTA RR soft ND no edema, (+) skin redness on thighs Cara Berkowitz MD Oct 14, 2018 23:24
[2018-10-15] VITALS: BP 140/82
[2018-10-15] MEDS: Levothyroxine 25mcg tab ORAL SCH (05:39)
[2018-10-15] MEDS: Norco 5mg/325mg tab ORAL PRN ×3 (05:41→18:19)
[2018-10-15 06:08] LABS: HEMATOCRIT 24.8 % (42.0-52.0); HEMOGLOBIN 7.7 G/DL (14.2-18.0); MEAN CORPUSCULAR VOLUME 83 FL (80-99); PLATELET COUNT 195 K/UL (150-450); RED BLOOD COUNT 2.97 M/UL (4.70-6.10); RED CELL DISTRIBUTION WIDTH 15.3 % (11.6-14.8); WHITE BLOOD COUNT 8.9 K/UL (4.8-10.8)
[2018-10-15 06:40] LABS: ALANINE AMINOTRANSFERASE 28 U/L (12-78); ALBUMIN 1.7 G/DL (3.4-5.0); ALBUMIN/GLOBULIN RATIO 0.3 (1.0-2.7); ALKALINE PHOSPHATASE 227 U/L (46-116); ANION GAP 9 mmol/L (5-15); ASPARTATE AMINO TRANSFERASE 24 U/L (15-37); BILIRUBIN,TOTAL 0.4 MG/DL (0.2-1.0); BLOOD UREA NITROGEN 68 mg/dL (7-18); CALCIUM 7.9 MG/DL (8.5-10.1); CARBON DIOXIDE 27 MMOL/L (21-32); CHLORIDE 96 MMOL/L (98-107); CREATININE 6.3 MG/DL (0.55-1.30); PHOSPHORUS 4.9 MG/DL (2.5-4.9); POTASSIUM 5.8 MMOL/L (3.5-5.1); SODIUM 132 MMOL/L (136-145)
[2018-10-15 08:00] VITALS: BP 152/72
[2018-10-15] MEDS: Thiamine 100mg tab ORAL SCH (08:18)
[2018-10-15] MEDS: Lisinopril 2.5mg tab ORAL SCH (08:19)
[2018-10-15] MEDS: Nephrovite tab (Rena-Vite) ORAL SCH (08:20)
[2018-10-15] MEDS: Carvedilol 6.25mg Tab ORAL SCH ×2 (08:20→20:15)
[2018-10-15] MEDS: Docusate 100mg cap ORAL SCH ×3 (08:24→18:00)
[2018-10-15] MEDS: Heparin 5000 units/ml inj SUBQ SCH ×2 (08:24→20:17)
[2018-10-15 12:00] VITALS: BP 146/70
--- NOTE | 2018-10-15 13:07 | General Surgery Progress Note ---
General Surgery-Progress Note Subjective Symptoms: improved Additional Comments doing well. receiving HD. no acute events. comfortable. Objective Last 24 Hour Vital Signs Date Time Temp Pulse Resp B/P (MAP) Pulse Ox O2 Delivery O2 Flow Rate FiO2 10/15/18 09:00 Room Air 10/15/18 08:20 84 147/64 10/15/18 08:19 147/64 10/15/18 00:00 97.5 67 19 140/82 (101) 98 10/14/18 21:02 69 141/81 10/14/18 21:00 Room Air 10/14/18 20:00 98.0 69 19 141/81 (101) 99 10/14/18 16:00 98.0 67 16 145/81 (102) 98 I&O Intake and Output 10/14/18 10/15/18 19:00 07:00 Intake Total 960 ml 240 ml Output Total 700 ml 150 ml Balance 260 ml 90 ml Intake Oral 960 ml 240 ml Output Urine Total 700 ml 150 ml # Bowel Movements 1 Dressing: saturated Wound: clean, other Drains: other Cardiovascular: RSR Respiratory: clear Abdomen: soft, flat, non-tender, present bowel sounds Extremities: other Laboratory Tests Test 10/15/18 05:24 White Blood Count 8.9 K/UL (4.8-10.8) Red Blood Count 2.97 M/UL (4.70-6.10) L Hemoglobin 7.7 G/DL (14.2-18.0) L Hematocrit 24.8 % (42.0-52.0) L Mean Corpuscular Volume 83 FL (80-99) Mean Corpuscular Hemoglobin 25.8 PG (27.0-31.0) L Mean Corpuscular Hemoglobin Concent 30.9 G/DL (32.0-36.0) L Red Cell Distribution Width 15.3 % (11.6-14.8) H Platelet Count 195 K/UL (150-450) Mean Platelet Volume 6.3 FL (6.5-10.1) L Neutrophils (%) (Auto) % (45.0-75.0) Lymphocytes (%) (Auto) % (20.0-45.0) Monocytes (%) (Auto) % (1.0-10.0) Eosinophils (%) (Auto) % (0.0-3.0) Basophils (%) (Auto) % (0.0-2.0) Sodium Level 132 MMOL/L (136-145) L Potassium Level 5.8 MMOL/L (3.5-5.1) H Chloride Level 96 MMOL/L (98-107) L Carbon Dioxide Level 27 MMOL/L (21-32) Anion Gap 9 mmol/L (5-15) Blood Urea Nitrogen 68 mg/dL (7-18) H Creatinine 6.3 MG/DL (0.55-1.30) H Estimat Glomerular Filtration Rate 9.0 mL/min (>60) Glucose Level 83 MG/DL (74-106) Calcium Level 7.9 MG/DL (8.5-10.1) L Phosphorus Level 4.9 MG/DL (2.5-4.9) Magnesium Level 1.5 MG/DL (1.8-2.4) L Total Bilirubin 0.4 MG/DL (0.2-1.0) Aspartate Amino Transf (AST/SGOT) 24 U/L (15-37) Alanine Aminotransferase (ALT/SGPT) 28 U/L (12-78) Alkaline Phosphatase 227 U/L (46-116) H Total Protein 6.8 G/DL (6.4-8.2) Albumin 1.7 G/DL (3.4-5.0) L Globulin 5.1 g/dL Albumin/Globulin Ratio 0.3 (1.0-2.7) L Plan Problems: (1) Cellulitis Assessment & Plan: Multiple wounds noted on bilateral lower extremities and arms. some self inflicted and some skin rash left lower extremity cellulitis from resolving prior I&D/infection no drainage noted mild erythema patient expressed tenderness prior to even being touched and asks for pain meds leukocytosis resolved. improving. on HD via right tunneled catheter left lateral lower extremity wounds dry and eschar falling off with exposed subcutaneous tissue that is dry on exam no abscess noted wounds as above patient non compliant with care of wounds as noted in history - was more compliant today wash wound daily with NS apply skin protectant / therahoney apply non adherent dressing / Xeroform followed by kerliivette wrap thank you will follow with Raymond Gomes Oct 15, 2018 13:07
--- NOTE | 2018-10-15 14:05 | General Progress Note ---
Assessment/Plan Status: stable Assessment/Plan #. Anemia of kidney disease/esrd -- anemia panel reviewed, has end-stage renal disease, status post missed dialysis via PermCath. --> transfuse on prn basis, if hgb <7 --> no evidence for hemolysis noted --> Do not recommend iron at this time --> Cont po folic acid daily --> HD on permacath r arm --> getting epogen since hd and esrd, also vit b/folic acid --> hemoglobin electrophoresis is normal, no sickle cell trait noted #. Thrombocytopenia due to underlying Hepatitis C. has been chronic, unchanged --> Improved/Resolved --> afp 2.1, and trend plts as needed --> peripheral smear reviewed --> on abx as per ID --> ok for ppx if plt >50k w/ wither heparin --> Transfuse if Plt < 20k and fever, or if Plt < 10k without fever #. Leukocytosis likely due to infection. --> Improved/Resolved --> Remains on IV abx #. Left thigh wound, imaging at [facility] reviewed. No evidence of abscess. ==> on abx as per id --> skin protectant per surg #. IV drug use. #. Homelessness. #. Systemic inflammatory response syndrome. #. Hypothyroidism. #. Hep C -- outpatient eradication #. ESRD on hd 3x a week GREATLY APPRECIATE CONSULTATION. Subjective Date patient seen: Oct 15, 2018 Hematologic/Lymphatic: Reports: anemia Allergies: Coded Allergies: No Known Allergies (Unverified , 10/04/18) All Systems: reviewed and negative except above Subjective Pt awake and alert. No acute events. H/H stable. HD for today. Pt complaint with meds today. Objective Last 24 Hour Vital Signs Date Time Temp Pulse Resp B/P (MAP) Pulse Ox O2 Delivery O2 Flow Rate FiO2 10/15/18 09:00 Room Air 10/15/18 08:20 84 147/64 10/15/18 08:19 147/64 10/15/18 00:00 97.5 67 19 140/82 (101) 98 10/14/18 21:02 69 141/81 10/14/18 21:00 Room Air 10/14/18 20:00 98.0 69 19 141/81 (101) 99 12/13/18 16:00 98.0 67 16 145/81 (102) 98 Intake and Output 10/14/18 10/15/18 19:00 07:00 Intake Total 960 ml 240 ml Output Total 700 ml 150 ml Balance 260 ml 90 ml Intake Oral 960 ml 240 ml Output Urine Total 700 ml 150 ml # Bowel Movements 1 Laboratory Tests 10/15/18 05:24: White Blood Count 8.9, Red Blood Count 2.97L, Hemoglobin 7.7L, Hematocrit 24.8L , Mean Corpuscular Volume 83, Mean Corpuscular Hemoglobin 25.8L, Mean Corpuscular Hemoglobin Concent 30.9L, Red Cell Distribution Width 15.3H, Platelet Count 195, Mean Platelet Volume 6.3L, Neutrophils (%) (Auto) , Lymphocytes (%) (Auto) , Monocytes (%) (Auto) , Eosinophils (%) (Auto) , Basophils (%) (Auto) , Sodium Level 132L, Potassium Level 5.8H, Chloride Level 96L, Carbon Dioxide Level 27, Anion Gap 9, Blood Urea Nitrogen 68H, Creatinine 6.3H, Estimat Glomerular Filtration Rate 9.0, Glucose Level 83, Calcium Level 7.9L, Phosphorus Level 4.9, Magnesium Level 1.5L, Total Bilirubin 0.4, Aspartate Amino Transf (AST/SGOT) 24, Alanine Aminotransferase (ALT/SGPT) 28, Alkaline Phosphatase 227H, Total Protein 6.8, Albumin 1.7L, Globulin 5.1, Albumin/Globulin Ratio 0.3L Height (Feet): 5 Height (Inches): 8.00 Weight (Pounds): 185 Objective PHYSICAL EXAMINATION: GENERAL: elderly cachectic-looking gentleman in no respiratory distress NECK: Supple. No jugular venous distention. LUNGS: Ctab, Less coughing CARDIAC: Regular rhythm. A holosystolic regurgitant murmur ++ ABDOMEN: Soft and not. ++ bowel sounds. EXTREMITIES: There is no clubbing, no cyanosis. There is no edema. Back: He has extensive ischemic changes in the skin in the inner thigh on both legs with eschar formation. Gordo Jang MD Oct 15, 2018 14:05
--- NOTE | 2018-10-15 15:28 | Nephrology Progress Note ---
Assessment/Plan Problem List: (1) Cardiomyopathy (2) ESRD on dialysis (3) Bacteremia (4) Homeless (5) Leukocytosis Assessment: strep bacteremia Assessment ESRD- Cardiomyopathy Anemia of CKD Hyperkalemia Leukocytosis, ? Line infectio FTT (failure to thrive) in adult- malnutrition Homeless Plan IV iron- Kayexelate as needed Iron- stop IV Iron as ferritin is over 1500 Folate- po Dialysis as needed, done 10/13 next 10/15 Phos binders Augmentin and Doxy 2D echo Septal hypokinesis.mid to distal Inferior wall hypokinesis Left ventricular ejection fraction estimated to be 40%. blood cultures per orders Subjective ROS Limited/Unobtainable: No Constitutional: Reports: weakness Objective Objective Last 24 Hour Vital Signs Date Time Temp Pulse Resp B/P (MAP) Pulse Ox O2 Delivery O2 Flow Rate FiO2 10/15/18 09:00 Room Air 10/15/18 08:20 84 147/64 10/15/18 08:19 147/64 10/15/18 00:00 97.5 67 19 140/82 (101) 98 10/14/18 21:02 69 141/81 10/14/18 21:00 Room Air 10/14/18 20:00 98.0 69 19 141/81 (101) 99 10/14/18 16:00 98.0 67 16 145/81 (102) 98 Intake and Output 10/14/18 10/15/18 19:00 07:00 Intake Total 960 ml 240 ml Output Total 700 ml 150 ml Balance 260 ml 90 ml Intake Oral 960 ml 240 ml Output Urine Total 700 ml 150 ml # Bowel Movements 1 Laboratory Tests 10/15/18 05:24: White Blood Count 8.9, Red Blood Count 2.97L, Hemoglobin 7.7L, Hematocrit 24.8L , Mean Corpuscular Volume 83, Mean Corpuscular Hemoglobin 25.8L, Mean Corpuscular Hemoglobin Concent 30.9L, Red Cell Distribution Width 15.3H, Platelet Count 195, Mean Platelet Volume 6.3L, Neutrophils (%) (Auto) , Lymphocytes (%) (Auto) , Monocytes (%) (Auto) , Eosinophils (%) (Auto) , Basophils (%) (Auto) , Sodium Level 132L, Potassium Level 5.8H, Chloride Level 96L, Carbon Dioxide Level 27, Anion Gap 9, Blood Urea Nitrogen 68H, Creatinine 6.3H, Estimat Glomerular Filtration Rate 9.0, Glucose Level 83, Calcium Level 7.9L, Phosphorus Level 4.9, Magnesium Level 1.5L, Total Bilirubin 0.4, Aspartate Amino Transf (AST/SGOT) 24, Alanine Aminotransferase (ALT/SGPT) 28, Alkaline Phosphatase 227H, Total Protein 6.8, Albumin 1.7L, Globulin 5.1, Albumin/Globulin Ratio 0.3L Height (Feet): 5 Height (Inches): 8.00 Weight (Pounds): 185 General Appearance: no apparent distress Cardiovascular: normal rate Respiratory/Chest: lungs clear Abdomen: soft Objective no change David Meyers MD Oct 15, 2018 15:28
[2018-10-15 16:00] VITALS: BP 148/68
[2018-10-15] MEDS ORDERED: Iron Sucrose 200 MG in NS 110 ML IV SCH (16:30)
[2018-10-15 20:00] VITALS: BP 140/70
[2018-10-15] MEDS: OLANZapine 10mg tab ORAL SCH (20:14)
[2018-10-15] MEDS: Epogen (for ESRD on dialysis) SUBQ SCH (21:11)
--- NOTE | 2018-10-15 21:27 | General Progress Note ---
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 Recommendations - s/p IV Iron - EPO - PPI - follow labs - push po - no EGD/Colon , per patient wishes - can consider HCV eradication at later date Subjective Allergies: Coded Allergies: No Known Allergies (Unverified , 10/04/18) Subjective Feels same no abdominal symptoms appetite better Objective Last 24 Hour Vital Signs Date Time Temp Pulse Resp B/P (MAP) Pulse Ox O2 Delivery O2 Flow Rate FiO2 10/15/18 20:15 67 140/70 10/15/18 20:00 98.1 67 19 140/70 (93) 98 10/15/18 16:00 98.0 78 16 148/68 (94) 100 10/15/18 12:00 97.5 16 146/70 (95) 100 10/15/18 09:00 Room Air 10/15/18 08:20 84 147/64 10/15/18 08:19 147/64 10/15/18 08:00 97.6 20 152/72 (98) 100 10/15/18 00:00 97.5 67 19 140/82 (101) 98 Intake and Output 10/14/18 10/15/18 19:00 07:00 Intake Total 960 ml 240 ml Output Total 700 ml 150 ml Balance 260 ml 90 ml Intake Oral 960 ml 240 ml Output Urine Total 700 ml 150 ml # Bowel Movements 1 Laboratory Tests 10/15/18 05:24: White Blood Count 8.9, Red Blood Count 2.97L, Hemoglobin 7.7L, Hematocrit 24.8L , Mean Corpuscular Volume 83, Mean Corpuscular Hemoglobin 25.8L, Mean Corpuscular Hemoglobin Concent 30.9L, Red Cell Distribution Width 15.3H, Platelet Count 195, Mean Platelet Volume 6.3L, Neutrophils (%) (Auto) , Lymphocytes (%) (Auto) , Monocytes (%) (Auto) , Eosinophils (%) (Auto) , Basophils (%) (Auto) , Sodium Level 132L, Potassium Level 5.8H, Chloride Level 96L, Carbon Dioxide Level 27, Anion Gap 9, Blood Urea Nitrogen 68H, Creatinine 6.3H, Estimat Glomerular Filtration Rate 9.0, Glucose Level 83, Calcium Level 7.9L, Phosphorus Level 4.9, Magnesium Level 1.5L, Total Bilirubin 0.4, Aspartate Amino Transf (AST/SGOT) 24, Alanine Aminotransferase (ALT/SGPT) 28, Alkaline Phosphatase 227H, Total Protein 6.8, Albumin 1.7L, Globulin 5.1, Albumin/Globulin Ratio 0.3L Height (Feet): 5 Height (Inches): 8.00 Weight (Pounds): 185 Objective Thin NAD NCAT supple CTA RR soft ND no edema, (+) skin redness on thighs Cara Berkowitz MD Oct 15, 2018 21:27
--- NOTE | 2018-10-15 22:39 | Pulmonology Progress Note ---
Assessment/Plan Assessment/Plan Pulmonary Progress Note: Assessment/Plan Problem List: (1) Hepatitis C ICD Codes: B19.20 - Unspecified viral hepatitis C without hepatic coma SNOMED: 43038782 (2) Anemia ICD Codes: D64.9 - Anemia, unspecified SNOMED: 776725672 (3) Dialysis patient ICD Codes: Z99.2 - Dependence on renal dialysis SNOMED: 888512630 (4) FTT (failure to thrive) in adult ICD Codes: R62.7 - Adult failure to thrive SNOMED: 855359380 (5) Cellulitis ICD Codes: L03.90 - Cellulitis, unspecified SNOMED: 366478493 Qualifiers: Qualified Codes: L03.116 - Cellulitis of left lower limb (6) Leukocytosis ICD Codes: D72.829 - Elevated white blood cell count, unspecified SNOMED: 048922315, 752979332 (7) Homeless ICD Codes: Z59.0 - Homelessness SNOMED: 08429935, 420520915 (8) Missed dialysis SNOMED: 358220075 (9) CHF (congestive heart failure) ICD Codes: I50.9 - Heart failure, unspecified SNOMED: 69363616 (10) Bacteremia ICD Codes: R78.81 - Bacteremia SNOMED: 2297521 Assessment/Plan ASSESSMENT: The patient is a 62-year-old homeless male with a history of IV drug use; hepatitis C; hepatopathy; end-stage renal disease, on dialysis via tunneled cath; and noncompliance with missed dialysis, presenting with weakness, failure to thrive, and likely infection with leukocytosis and systemic inflammatory response syndrome/sepsis. No new complaints. PROBLEM LIST: 1. End-stage renal disease, status post missed dialysis via PermCath. 2. Anemia, acute on chronic, with evidence of iron deficiency. 3. Hepatitis C. 4. Left thigh wound, imaging at [facility] reviewed. No evidence of abscess. 5. IV drug use. 6. Homelessness. 7. Systemic inflammatory response syndrome/sepsis 8. Leukocytosis. 9. Hypothyroidism 10. GPC bacteremia, likely contaminant 11. CHF with systolic dysfunction TREATMENT PLAN: 1. No IV, Augmentin/Doxy per ID - pt declines many doses 2. F/U repeat Cx's 3. HD per renal 4. Surgery recs 5. wound care 6. Monitor hemoglobin and hematocrit, transfuse PRN Hb < 7, refuses EPO, F/U plasma cell labs 7. F/U GI and heme recs 8. F/U cardiology recs, medical management of CHF, ischemia eval at some point 9. Social work evaluation to assist with placement. D/W SW, working with insurance plan RE: SNF placement 10. Pain control/supportive care. 11. Continue Synthroid 12. Multivitamins, thiamine, and folate. 13. DVT prophylaxis, heparin subcutaneous. 14. Diabetic renal diet. 15. The patient is a Full Code. 16. Psych recs Subjective Allergies: Coded Allergies: No Known Allergies (Unverified , 10/04/18) Subjective AFVSS, stable on RA Watch Dial Printer notes reviewed Declines endoscopy, declines removal of tunneled cath Declines multiple meds No F/C/CP/SOB/N/V/D Objective Last 24 Hour Vital Signs Noted Height (Feet): 5 Height (Inches): 8.00 Weight (Pounds): 117 General Appearance: no apparent distress, cachetic EENT: PERRL/EOMI Neck: non-tender, normal alignment, supple Cardiovascular: normal peripheral pulses, normal rate, regular rhythm Respiratory/Chest: chest wall non-tender, lungs clear, normal breath sounds Abdomen: normal bowel sounds, non tender, soft, no organomegaly, no mass Edema: no edema noted Arm (L), no edema noted Arm (R), no edema noted Leg (L), no edema noted Leg (R), no edema noted Pedal (L), no edema noted Pedal (R), no edema noted Generalized Subjective ROS Limited/Unobtainable: No Allergies: Coded Allergies: No Known Allergies (Unverified , 10/04/18) Objective Last 24 Hour Vital Signs Date Time Temp Pulse Resp B/P (MAP) Pulse Ox O2 Delivery O2 Flow Rate FiO2 10/15/18 20:15 67 140/70 10/15/18 20:00 98.1 67 19 140/70 (93) 98 10/15/18 16:00 98.0 78 16 148/68 (94) 100 10/15/18 12:00 97.5 16 146/70 (95) 100 10/15/18 09:00 Room Air 10/15/18 08:20 84 147/64 10/15/18 08:19 147/64 10/15/18 08:00 97.6 20 152/72 (98) 100 10/15/18 00:00 97.5 67 19 140/82 (101) 98 Intake and Output 10/14/18 10/15/18 19:00 07:00 Intake Total 960 ml 240 ml Output Total 700 ml 150 ml Balance 260 ml 90 ml Intake Oral 960 ml 240 ml Output Urine Total 700 ml 150 ml # Bowel Movements 1 Laboratory Tests 10/15/18 05:24: White Blood Count 8.9, Red Blood Count 2.97L, Hemoglobin 7.7L, Hematocrit 24.8L , Mean Corpuscular Volume 83, Mean Corpuscular Hemoglobin 25.8L, Mean Corpuscular Hemoglobin Concent 30.9L, Red Cell Distribution Width 15.3H, Platelet Count 195, Mean Platelet Volume 6.3L, Neutrophils (%) (Auto) , Lymphocytes (%) (Auto) , Monocytes (%) (Auto) , Eosinophils (%) (Auto) , Basophils (%) (Auto) , Sodium Level 132L, Potassium Level 5.8H, Chloride Level 96L, Carbon Dioxide Level 27, Anion Gap 9, Blood Urea Nitrogen 68H, Creatinine 6.3H, Estimat Glomerular Filtration Rate 9.0, Glucose Level 83, Calcium Level 7.9L, Phosphorus Level 4.9, Magnesium Level 1.5L, Total Bilirubin 0.4, Aspartate Amino Transf (AST/SGOT) 24, Alanine Aminotransferase (ALT/SGPT) 28, Alkaline Phosphatase 227H, Total Protein 6.8, Albumin 1.7L, Globulin 5.1, Albumin/Globulin Ratio 0.3L Current Medications Medications (Trade) Dose Ordered Sig/Mary Kay Route PRN Reason Start Time Stop Time Status Last Admin Dose Admin Acetaminophen (Tylenol) 650 mg Q6H PRN ORAL Mild Pain/Temp > 100.5 10/04/18 23:30 11/03/18 23:29 Acetaminophen/ Hydrocodone Bitart ([place] 5/325) 1 tab Q4H PRN ORAL Moderate Pain (Pain Scale 4-6) 10/12/18 10:00 10/19/18 09:59 10/15/18 18:19 Carvedilol (Coreg) 6.25 mg EVERY 12 HOURS ORAL 10/12/18 21:00 11/11/18 20:59 10/15/18 20:15 Docusate Sodium (Colace) 100 mg THREE TIMES A DAY ORAL 10/05/18 13:00 11/04/18 12:59 10/13/18 17:46 Epoetin David (Procrit (for ESRD on dialysis)) 10,000 units THU-THU-THU SUBQ 10/08/18 21:00 11/07/18 20:59 10/15/18 21:11 Fluoxetine HCl (PROzac) 20 mg DAILY ORAL 10/13/18 09:00 11/12/18 08:59 10/15/18 08:18 Folic Acid (Folate) 3 mg DAILY ORAL 10/05/18 11:04 11/04/18 11:03 10/15/18 08:19 Heparin Sodium (Porcine) (Heparin 5000 units/ml) 5,000 units EVERY 12 HOURS SUBQ 10/05/18 09:00 11/04/18 08:59 10/15/18 20:17 Levothyroxine Sodium (Synthroid) 25 mcg DAILY@0630 ORAL 10/06/18 06:30 11/05/18 06:29 10/15/18 05:39 Lisinopril (Zestril) 5 mg DAILY ORAL 10/08/18 10:47 11/07/18 10:46 10/15/18 08:19 Olanzapine (ZyPREXA) 10 mg BEDTIME ORAL 10/13/18 00:30 11/12/18 00:29 10/15/18 20:14 Ondansetron HCl (Zofran) 4 mg Q4HR PRN IVP Nausea & Vomiting 10/04/18 23:30 11/03/18 23:29 Pantoprazole (Protonix) 40 mg DAILY ORAL 10/05/18 11:02 11/04/18 11:01 10/15/18 08:19 Sevelamer Carbonate (Renvela) 1,600 mg THREE TIMES A DAY ORAL 10/06/18 18:00 11/04/18 12:59 10/15/18 18:19 Thiamine HCl (Vitamin B1) 100 mg DAILY ORAL 10/10/18 10:00 11/09/18 09:59 10/15/18 08:18 Vitamin B Complex/ Vit C/Folic Acid (Nephrovite) 1 tab DAILY ORAL 10/06/18 09:00 11/05/18 08:59 10/15/18 08:20 Miguel Kirby MD Oct 15, 2018 22:38
--- NOTE | 2018-10-15 23:31 | General Progress Note ---
Assessment/Plan Problem List: (1) Schizophrenia ICD Codes: F20.9 - Schizophrenia, unspecified SNOMED: 63266938 Status: stable, progressing Assessment/Plan Zyprexa 10mg po qhs Remeron 7.5mg qhs provided ro/st Subjective Neurologic/Psychiatric: Reports: anxiety, depressed, emotional problems Allergies: Coded Allergies: No Known Allergies (Unverified , 10/04/18) Subjective the pt has AH and has been calmer more cooperative no behaviors Objective Last 24 Hour Vital Signs Date Time Temp Pulse Resp B/P (MAP) Pulse Ox O2 Delivery O2 Flow Rate FiO2 10/15/18 21:00 Room Air 10/15/18 20:15 67 140/70 10/15/18 20:00 98.1 67 19 140/70 (93) 98 10/15/18 16:00 98.0 78 16 148/68 (94) 100 10/15/18 12:00 97.5 16 146/70 (95) 100 10/15/18 09:00 Room Air 10/15/18 08:20 84 147/64 10/15/18 08:19 147/64 10/15/18 08:00 97.6 20 152/72 (98) 100 10/15/18 00:00 97.5 67 19 140/82 (101) 98 Intake and Output 10/14/18 10/15/18 19:00 07:00 Intake Total 960 ml 240 ml Output Total 700 ml 150 ml Balance 260 ml 90 ml Intake Oral 960 ml 240 ml Output Urine Total 700 ml 150 ml # Bowel Movements 1 Laboratory Tests 10/15/18 05:24: White Blood Count 8.9, Red Blood Count 2.97L, Hemoglobin 7.7L, Hematocrit 24.8L , Mean Corpuscular Volume 83, Mean Corpuscular Hemoglobin 25.8L, Mean Corpuscular Hemoglobin Concent 30.9L, Red Cell Distribution Width 15.3H, Platelet Count 195, Mean Platelet Volume 6.3L, Neutrophils (%) (Auto) , Lymphocytes (%) (Auto) , Monocytes (%) (Auto) , Eosinophils (%) (Auto) , Basophils (%) (Auto) , Sodium Level 132L, Potassium Level 5.8H, Chloride Level 96L, Carbon Dioxide Level 27, Anion Gap 9, Blood Urea Nitrogen 68H, Creatinine 6.3H, Estimat Glomerular Filtration Rate 9.0, Glucose Level 83, Calcium Level 7.9L, Phosphorus Level 4.9, Magnesium Level 1.5L, Total Bilirubin 0.4, Aspartate Amino Transf (AST/SGOT) 24, Alanine Aminotransferase (ALT/SGPT) 28, Alkaline Phosphatase 227H, Total Protein 6.8, Albumin 1.7L, Globulin 5.1, Albumin/Globulin Ratio 0.3L Height (Feet): 5 Height (Inches): 8.00 Weight (Pounds): 118 General Appearance: alert, cachetic Neurologic: oriented x 3, responsive, depressed affect Minal Nuñez MD Oct 15, 2018 23:31
[2018-10-16] VITALS: BP 149/83
[2018-10-16] MEDS: Norco 5mg/325mg tab ORAL PRN ×4 (02:13→21:18)
[2018-10-16 04:00] VITALS: BP 151/83
[2018-10-16] MEDS: Levothyroxine 25mcg tab ORAL SCH (05:54)
[2018-10-16 08:00] VITALS: BP 145/80
[2018-10-16 08:01] LABS: HEMATOCRIT 24.6 % (42.0-52.0); HEMOGLOBIN 7.8 G/DL (14.2-18.0); MEAN CORPUSCULAR VOLUME 83 FL (80-99); PLATELET COUNT 202 K/UL (150-450); RED BLOOD COUNT 2.95 M/UL (4.70-6.10); RED CELL DISTRIBUTION WIDTH 15.1 % (11.6-14.8); WHITE BLOOD COUNT 9.9 K/UL (4.8-10.8)
[2018-10-16 08:08] LABS: ALANINE AMINOTRANSFERASE 26 U/L (12-78); ALBUMIN 1.6 G/DL (3.4-5.0); ALBUMIN/GLOBULIN RATIO 0.3 (1.0-2.7); ALKALINE PHOSPHATASE 218 U/L (46-116); ANION GAP 8 mmol/L (5-15); ASPARTATE AMINO TRANSFERASE 22 U/L (15-37); BILIRUBIN,TOTAL 0.3 MG/DL (0.2-1.0); BLOOD UREA NITROGEN 56 mg/dL (7-18); CALCIUM 8.1 MG/DL (8.5-10.1); CARBON DIOXIDE 27 MMOL/L (21-32); CHLORIDE 99 MMOL/L (98-107); CREATININE 5.5 MG/DL (0.55-1.30); FERRITIN > 2000 NG/ML (8-388); PHOSPHORUS 3.9 MG/DL (2.5-4.9); SODIUM 133 MMOL/L (136-145)
[2018-10-16 08:30] LABS: % IRON SATURATION 24 % (15-50); IRON 31 ug/dL (50-175); TOTAL IRON BINDING CAPACITY 127 ug/dL (250-450)
[2018-10-16] MEDS: Heparin 5000 units/ml inj SUBQ SCH ×3 (09:00→21:19)
[2018-10-16] MEDS: Docusate 100mg cap ORAL SCH ×3 (09:00→17:06)
[2018-10-16] MEDS: Carvedilol 6.25mg Tab ORAL SCH ×2 (09:21→21:18)
[2018-10-16] MEDS: Nephrovite tab (Rena-Vite) ORAL SCH (09:21)
[2018-10-16] MEDS: Thiamine 100mg tab ORAL SCH (09:22)
[2018-10-16] MEDS: Lisinopril 2.5mg tab ORAL SCH (09:22)
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
[2018-10-16 12:00] VITALS: BP 130/80
--- NOTE | 2018-10-16 12:14 | Nephrology Progress Note ---
Assessment/Plan Problem List: (1) Cardiomyopathy (2) ESRD on dialysis (3) Bacteremia (4) Homeless (5) Leukocytosis Assessment: strep bacteremia Assessment ESRD- Cardiomyopathy Anemia of CKD Hyperkalemia Leukocytosis, ? Line infection FTT (failure to thrive) in adult- malnutrition Homeless Plan IV iron- Kayexelate as needed Iron- stop IV Iron as ferritin is over 1500 Folate- po Dialysis as needed, next 10/18 Phos binders Augmentin and Doxy 2D echo Septal hypokinesis.mid to distal Inferior wall hypokinesis Left ventricular ejection fraction estimated to be 40%. blood cultures per orders Subjective ROS Limited/Unobtainable: No Objective Objective Last 24 Hour Vital Signs Date Time Temp Pulse Resp B/P (MAP) Pulse Ox O2 Delivery O2 Flow Rate FiO2 10/16/18 09:22 145/80 10/16/18 09:21 73 145/80 10/16/18 09:00 Room Air 10/16/18 08:00 98.8 73 18 145/80 (101) 98 10/16/18 04:00 98.6 70 19 151/83 (105) 97 10/16/18 00:00 98.2 64 19 149/83 (105) 100 10/15/18 21:00 Room Air 10/15/18 20:15 67 140/70 10/15/18 20:00 98.1 67 19 140/70 (93) 98 10/15/18 16:00 98.0 78 16 148/68 (94) 100 Intake and Output 10/15/18 10/16/18 18:59 06:59 Intake Total 800 ml 240 ml Output Total 800 ml 300 ml Balance 0 ml -60 ml Intake Oral 800 ml 240 ml Output Urine Total 800 ml 300 ml # Bowel Movements 2 Laboratory Tests 10/16/18 06:15: White Blood Count 9.9, Red Blood Count 2.95L, Hemoglobin 7.8L, Hematocrit 24.6L , Mean Corpuscular Volume 83, Mean Corpuscular Hemoglobin 26.3L, Mean Corpuscular Hemoglobin Concent 31.5L, Red Cell Distribution Width 15.1H, Platelet Count 202, Mean Platelet Volume 5.9L, Neutrophils (%) (Auto) , Lymphocytes (%) (Auto) , Monocytes (%) (Auto) , Eosinophils (%) (Auto) , Basophils (%) (Auto) , Differential Total Cells Counted 100, Neutrophils % ( Manual) 67, Lymphocytes % (Manual) 25, Monocytes % (Manual) 5, Eosinophils % ( Manual) 3, Basophils % (Manual) 0, Band Neutrophils 0, Platelet Estimate Adequate, Platelet Morphology Normal, Anisocytosis 1+, Sodium Level 133L, Potassium Level 5.0, Chloride Level 99, Carbon Dioxide Level 27, Anion Gap 8, Blood Urea Nitrogen 56H, Creatinine 5.5H, Estimat Glomerular Filtration Rate 10.6, Glucose Level 91, Calcium Level 8.1L, Phosphorus Level 3.9, Magnesium Level 1.6L, Iron Level 31L, Total Iron Binding Capacity 127L, Percent Iron Saturation 24, Unsaturated Iron Binding 96L, Ferritin > 2000H, Total Bilirubin 0.3, Aspartate Amino Transf (AST/SGOT) 22, Alanine Aminotransferase (ALT/SGPT) 26, Alkaline Phosphatase 218H, Total Protein 6.8, Albumin 1.6L, Globulin 5.2, Albumin/Globulin Ratio 0.3L, Vitamin B12 Level 635, Folate 12.5 Height (Feet): 5 Height (Inches): 8.00 Weight (Pounds): 118 General Appearance: no apparent distress Cardiovascular: regular rhythm Respiratory/Chest: lungs clear Abdomen: soft Objective no change David Meyers MD Oct 16, 2018 12:14
[2018-10-16 16:00] VITALS: BP 149/82
--- NOTE | 2018-10-16 16:24 | Infectious Diseases Prog Note ---
Assessment/Plan Assessment/Plan ASSESSMENT AND PLAN: 1. sepsis, ? 2 types streptococcus species positive blood cultures likely contaminant, left LE wound with cellulitis, right leg wound, leukocytosis, sirs hx of left LE/hip abscess, s/p I/D - oral doxycycline 100 mg bid and augmentin 500 mg tid - finish course - surveillance blood cultures negative, echo without vegetation - leukocytosis resolved and cellulitis better - wound care per surgery, no debridement for now - monitor labs and wbc count wnl now - d/w surgery, wounds stable - will sign off, call if any questions or re-evaluation - thank you 2. The patient has end-stage renal disease, on hemodialysis. 3. hypothyroidism - he is on levothyroxine. 4. Anemia 5. Thrombocytopenia. 6. Hepatitis C infection. 7. Hepatocellular disease. 8. Failure to thrive. 9. End-stage renal disease, hemodialysis. 10. Noncompliance with dialysis. 11. No history of hypertension or diabetes. 12. History of abscess status post incision and drainage. 13. No known drug allergies.. 14. Social positive for intravenous drug abuse. 15. Family history is Noncontributory. 16. Case discussed with RN. 17. Case discussed with primary consultants. 18. MAR was noted. 19. Notes and records were noted. 20. Orders were entered. Subjective Constitutional: Denies: fever HEENT: Denies: congestion Respiratory: Denies: shortness of breath Cardiovascular: Denies: chest pain Gastrointestinal/Abdominal: Denies: nausea, vomiting, diarrhea Genitourinary: Denies: dysuria Neurologic: Denies: headache Psychiatric: Denies: depression Skin: Denies: rash Hematologic: Denies: bleeding Musculoskeletal: Denies: pain Allergies: Coded Allergies: No Known Allergies (Unverified , 10/04/18) Objective Vital Signs Last 24 Hour Vital Signs Date Time Temp Pulse Resp B/P (MAP) Pulse Ox O2 Delivery O2 Flow Rate FiO2 10/16/18 12:00 98.1 84 19 130/80 (97) 95 10/16/18 09:22 145/80 10/16/18 09:21 73 145/80 10/16/18 09:00 Room Air 10/16/18 08:00 98.8 73 18 145/80 (101) 98 10/16/18 04:00 98.6 70 19 151/83 (105) 97 10/16/18 00:00 98.2 64 19 149/83 (105) 100 10/15/18 21:00 Room Air 10/15/18 20:15 67 140/70 10/15/18 20:00 98.1 67 19 140/70 (93) 98 Height (Feet): 5 Height (Inches): 8.00 Weight (Pounds): 118 General Appearance: no acute distress HEENT: normocephalic, atraumatic, anicteric, mucous membranes moist Respiratory/Chest: lungs clear, normal breath sounds, no respiratory distress, no accessory muscle use Cardiovascular: normal rate, regular rhythm, no gallop/murmur, no JVD Abdomen: normal bowel sounds, soft, non tender, no organomegaly, non distended Genitourinary: other - no cva pain, no giron Extremities: no cyanosis, other - wounds stable, cellulitis resolved Skin: no rash 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 There is some atelectasis at the right lung base. The lungs and pleural spaces are otherwise clear. The heart size is upper limits of normal. Aorta is tortuous and calcified. Upper mediastinum is unremarkable Impression: Minimal right basilar atelectasis No acute process otherwise Tunneled dialysis catheter Microbiology Date/Time Source Procedure Growth Status 10/06/18 14:30 Blood Blood Culture - Final NO GROWTH AFTER 5 DAYS Complete 10/04/18 21:15 Nasal Nares MRSA Culture - Final NO METHICILLIN RESISTANT STAPH AUREUS... Complete 10/05/18 08:30 Urine,Clean Catch Urine Culture - Final NO GROWTH AFTER 48 HOURS Complete 10/05/18 21:00 Rectum VRE Culture - Final NO VANCOMYCIN RESISTANT ENTEROCOCCUS ... Complete Laboratory Tests Test 10/16/18 06:15 White Blood Count 9.9 K/UL (4.8-10.8) Red Blood Count 2.95 M/UL (4.70-6.10) L Hemoglobin 7.8 G/DL (14.2-18.0) L Hematocrit 24.6 % (42.0-52.0) L Mean Corpuscular Volume 83 FL (80-99) Mean Corpuscular Hemoglobin 26.3 PG (27.0-31.0) L Mean Corpuscular Hemoglobin Concent 31.5 G/DL (32.0-36.0) L Red Cell Distribution Width 15.1 % (11.6-14.8) H Platelet Count 202 K/UL (150-450) Mean Platelet Volume 5.9 FL (6.5-10.1) L Neutrophils (%) (Auto) % (45.0-75.0) Lymphocytes (%) (Auto) % (20.0-45.0) Monocytes (%) (Auto) % (1.0-10.0) Eosinophils (%) (Auto) % (0.0-3.0) Basophils (%) (Auto) % (0.0-2.0) Differential Total Cells Counted 100 Neutrophils % (Manual) 67 % (45-75) Lymphocytes % (Manual) 25 % (20-45) Monocytes % (Manual) 5 % (1-10) Eosinophils % (Manual) 3 % (0-3) Basophils % (Manual) 0 % (0-2) Band Neutrophils 0 % (0-8) Platelet Estimate Adequate Platelet Morphology Normal Anisocytosis 1+ Sodium Level 133 MMOL/L (136-145) L Potassium Level 5.0 MMOL/L (3.5-5.1) Chloride Level 99 MMOL/L (98-107) Carbon Dioxide Level 27 MMOL/L (21-32) Anion Gap 8 mmol/L (5-15) Blood Urea Nitrogen 56 mg/dL (7-18) H Creatinine 5.5 MG/DL (0.55-1.30) H Estimat Glomerular Filtration Rate 10.6 mL/min (>60) Glucose Level 91 MG/DL (74-106) Calcium Level 8.1 MG/DL (8.5-10.1) L Phosphorus Level 3.9 MG/DL (2.5-4.9) Magnesium Level 1.6 MG/DL (1.8-2.4) L Iron Level 31 ug/dL (50-175) L Total Iron Binding Capacity 127 ug/dL (250-450) L Percent Iron Saturation 24 % (15-50) Unsaturated Iron Binding 96 ug/dL (112-346) L Ferritin > 2000 NG/ML (8-388) H Total Bilirubin 0.3 MG/DL (0.2-1.0) Aspartate Amino Transf (AST/SGOT) 22 U/L (15-37) Alanine Aminotransferase (ALT/SGPT) 26 U/L (12-78) Alkaline Phosphatase 218 U/L (46-116) H Total Protein 6.8 G/DL (6.4-8.2) Albumin 1.6 G/DL (3.4-5.0) L Globulin 5.2 g/dL Albumin/Globulin Ratio 0.3 (1.0-2.7) L Vitamin B12 Level 635 PG/ML (193-986) Folate 12.5 NG/ML (8.6-58.9) Current Medications Medications (Trade) Dose Ordered Sig/Mary Kay Route PRN Reason Start Time Stop Time Status Last Admin Dose Admin Acetaminophen (Tylenol) 650 mg Q6H PRN ORAL Mild Pain/Temp > 100.5 10/04/18 23:30 11/03/18 23:29 Acetaminophen/ Hydrocodone Bitart ([place] 5/325) 1 tab Q4H PRN ORAL Moderate Pain (Pain Scale 4-6) 10/12/18 10:00 10/19/18 09:59 10/16/18 14:40 Carvedilol (Coreg) 6.25 mg EVERY 12 HOURS ORAL 10/12/18 21:00 11/11/18 20:59 10/16/18 09:21 Docusate Sodium (Colace) 100 mg THREE TIMES A DAY ORAL 10/05/18 13:00 11/04/18 12:59 10/13/18 17:46 Epoetin David (Procrit (for ESRD on dialysis)) 10,000 units THU-THU-THU SUBQ 10/08/18 21:00 11/07/18 20:59 10/15/18 21:11 Fluoxetine HCl (PROzac) 20 mg DAILY ORAL 10/13/18 09:00 11/12/18 08:59 10/16/18 09:22 Folic Acid (Folate) 3 mg DAILY ORAL 10/05/18 11:04 11/04/18 11:03 10/16/18 09:21 Heparin Sodium (Porcine) (Heparin 5000 units/ml) 5,000 units EVERY 12 HOURS SUBQ 10/05/18 09:00 11/04/18 08:59 10/15/18 20:17 Levothyroxine Sodium (Synthroid) 25 mcg DAILY@0630 ORAL 10/06/18 06:30 11/05/18 06:29 10/16/18 05:54 Lisinopril (Zestril) 5 mg DAILY ORAL 10/08/18 10:47 11/07/18 10:46 10/16/18 09:22 Olanzapine (ZyPREXA) 10 mg BEDTIME ORAL 10/13/18 00:30 11/12/18 00:29 10/15/18 20:14 Ondansetron HCl (Zofran) 4 mg Q4HR PRN IVP Nausea & Vomiting 10/04/18 23:30 11/03/18 23:29 Pantoprazole (Protonix) 40 mg DAILY ORAL 10/05/18 11:02 11/04/18 11:01 10/16/18 09:22 Sevelamer Carbonate (Renvela) 1,600 mg THREE TIMES A DAY ORAL 10/06/18 18:00 11/04/18 12:59 10/16/18 13:15 Thiamine HCl (Vitamin B1) 100 mg DAILY ORAL 10/10/18 10:00 11/09/18 09:59 10/16/18 09:22 Vitamin B Complex/ Vit C/Folic Acid (Nephrovite) 1 tab DAILY ORAL 10/06/18 09:00 11/05/18 08:59 10/16/18 09:21 Ana De La Cruz MD Oct 16, 2018 16:24
--- NOTE | 2018-10-16 17:44 | General Progress Note ---
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 / HD - malnutrition - poor correction prognosis Recommendations - s/p IV Iron - EPO - PPI - follow labs - push po - no EGD/Colon , per patient wishes - can consider HCV eradication at later date Subjective Allergies: Coded Allergies: No Known Allergies (Unverified , 10/04/18) Subjective Feels same no abdominal symptoms appetite better Objective Last 24 Hour Vital Signs Date Time Temp Pulse Resp B/P (MAP) Pulse Ox O2 Delivery O2 Flow Rate FiO2 10/16/18 16:00 97.7 72 149/82 (104) 10/16/18 12:00 98.1 84 19 130/80 (97) 95 10/16/18 09:22 145/80 10/16/18 09:21 73 145/80 10/16/18 09:00 Room Air 10/16/18 08:00 98.8 73 18 145/80 (101) 98 10/16/18 04:00 98.6 70 19 151/83 (105) 97 10/16/18 00:00 98.2 64 19 149/83 (105) 100 10/15/18 21:00 Room Air 10/15/18 20:15 67 140/70 10/15/18 20:00 98.1 67 19 140/70 (93) 98 Intake and Output 10/15/18 10/16/18 19:00 07:00 Intake Total 800 ml 240 ml Output Total 800 ml 300 ml Balance 0 ml -60 ml Intake Oral 800 ml 240 ml Output Urine Total 800 ml 300 ml # Bowel Movements 2 Laboratory Tests 10/16/18 06:15: White Blood Count 9.9, Red Blood Count 2.95L, Hemoglobin 7.8L, Hematocrit 24.6L , Mean Corpuscular Volume 83, Mean Corpuscular Hemoglobin 26.3L, Mean Corpuscular Hemoglobin Concent 31.5L, Red Cell Distribution Width 15.1H, Platelet Count 202, Mean Platelet Volume 5.9L, Neutrophils (%) (Auto) , Lymphocytes (%) (Auto) , Monocytes (%) (Auto) , Eosinophils (%) (Auto) , Basophils (%) (Auto) , Differential Total Cells Counted 100, Neutrophils % ( Manual) 67, Lymphocytes % (Manual) 25, Monocytes % (Manual) 5, Eosinophils % ( Manual) 3, Basophils % (Manual) 0, Band Neutrophils 0, Platelet Estimate Adequate, Platelet Morphology Normal, Anisocytosis 1+, Sodium Level 133L, Potassium Level 5.0, Chloride Level 99, Carbon Dioxide Level 27, Anion Gap 8, Blood Urea Nitrogen 56H, Creatinine 5.5H, Estimat Glomerular Filtration Rate 10.6, Glucose Level 91, Calcium Level 8.1L, Phosphorus Level 3.9, Magnesium Level 1.6L, Iron Level 31L, Total Iron Binding Capacity 127L, Percent Iron Saturation 24, Unsaturated Iron Binding 96L, Ferritin > 2000H, Total Bilirubin 0.3, Aspartate Amino Transf (AST/SGOT) 22, Alanine Aminotransferase (ALT/SGPT) 26, Alkaline Phosphatase 218H, Total Protein 6.8, Albumin 1.6L, Globulin 5.2, Albumin/Globulin Ratio 0.3L, Vitamin B12 Level 635, Folate 12.5 Height (Feet): 5 Height (Inches): 8.00 Weight (Pounds): 118 Objective Thin NAD NCAT supple CTA RR soft ND no edema, (+) skin redness on thighs Cara Berkowitz MD Oct 16, 2018 17:44
[2018-10-16 20:00] VITALS: BP 147/89
[2018-10-16] MEDS: OLANZapine 10mg tab ORAL SCH (21:17)
[2018-10-17] VITALS: BP 147/87
[2018-10-17 04:00] VITALS: BP 138/78
[2018-10-17] MEDS: Levothyroxine 25mcg tab ORAL SCH (06:42)
[2018-10-17 08:00] VITALS: BP 152/85
[2018-10-17] MEDS: Nephrovite tab (Rena-Vite) ORAL SCH (08:06)
[2018-10-17] MEDS: Carvedilol 6.25mg Tab ORAL SCH (08:06)
[2018-10-17] MEDS: Docusate 100mg cap ORAL SCH ×3 (08:07→17:15)
[2018-10-17] MEDS: Thiamine 100mg tab ORAL SCH (08:07)
[2018-10-17] MEDS: Lisinopril 2.5mg tab ORAL SCH (08:07)
[2018-10-17] MEDS: Norco 5mg/325mg tab ORAL PRN ×4 (08:07→20:45)
[2018-10-17] MEDS: Heparin 5000 units/ml inj SUBQ SCH ×2 (08:08→20:43)
[2018-10-17 12:00] VITALS: BP 149/80
--- NOTE | 2018-10-17 12:01 | General Progress Note ---
Assessment/Plan Assessment/Plan #. Anemia of kidney disease/esrd -- anemia panel reviewed, has end-stage renal disease, status post missed dialysis via PermCath. --> transfuse on prn basis, if hgb <7 --> no evidence for hemolysis noted --> Do not recommend iron at this time --> Cont po folic acid daily --> HD on permacath r arm --> getting epogen since hd and esrd, also vit b/folic acid --> hemoglobin electrophoresis is normal, no sickle cell trait noted --> hgb 7.7-->7.6-->7.8 #. Thrombocytopenia due to underlying Hepatitis C. has been chronic, unchanged --> Improved/Resolved --> afp 2.1, and trend plts as needed --> peripheral smear reviewed --> on abx as per ID --> ok for ppx if plt >50k w/ wither heparin --> Transfuse if Plt < 20k and fever, or if Plt < 10k without fever #. Leukocytosis likely due to infection. --> Improved/Resolved --> Remains on IV abx #. Left thigh wound, imaging at [facility] reviewed. No evidence of abscess. ==> on abx as per id --> skin protectant per surg #. IV drug use. #. Homelessness. #. Systemic inflammatory response syndrome. #. Hypothyroidism. #. Hep C -- outpatient eradication #. ESRD on hd 3x a week GREATLY APPRECIATE CONSULTATION. Subjective Constitutional: Denies: no symptoms, chills, diaphoresis, fever, malaise, weakness, other HEENT: Denies: no symptoms, eye pain, blurred vision, tearing, double vision, ear pain, ear discharge, nose pain, nose congestion, throat pain, throat swelling, mouth pain, mouth swelling, other Cardiovascular: Denies: no symptoms, chest pain, edema, irregular heart rate, lightheadedness, palpitations, syncope, other Respiratory: Denies: no symptoms, cough, orthopnea, shortness of breath, SOB with excertion, SOB at rest, sputum, stridor, wheezing, other Gastrointestinal/Abdominal: Denies: no symptoms, abdomen distended, abdominal pain, black stools, tarry stools, blood in stool, constipated, diarrhea, difficulty swallowing, nausea, poor appetite, poor fluid intake, rectal bleeding , vomiting, other Genitourinary: Denies: no symptoms, burning, discharge, frequency, flank pain, hematuria, incontinence, pain, urgency, other Neurologic/Psychiatric: Denies: no symptoms, anxiety, depressed, emotional problems, headache, numbness, paresthesia, pre-existing deficit, seizure, tingling, tremors, weakness, other Endocrine: Denies: no symptoms, excessive sweating, flushing, intolerance to cold, intolerance to heat, increased hunger, increased thirst, increased urine, unexplained weight gain, unexplained weight loss, other Allergies: Coded Allergies: No Known Allergies (Unverified , 10/04/18) Subjective Pt awake and alert. No acute events. H/H stable. HD for today.Complaint with meds today. Objective Last 24 Hour Vital Signs Date Time Temp Pulse Resp B/P (MAP) Pulse Ox O2 Delivery O2 Flow Rate FiO2 10/17/18 08:37 97.2 10/17/18 08:07 138/78 10/17/18 08:06 64 138/78 10/17/18 08:00 97.3 75 18 152/85 (107) 98 10/17/18 07:51 Room Air 10/17/18 04:00 97.2 64 17 138/78 (98) 96 10/17/18 00:00 97.0 70 17 147/87 (107) 98 10/16/18 21:18 69 147/89 10/16/18 21:00 Room Air 10/16/18 20:00 97.7 69 17 147/89 (108) 98 10/16/18 16:00 97.7 72 149/82 (104) 10/16/18 12:00 98.1 84 19 130/80 (97) 95 Intake and Output 10/16/18 10/17/18 18:59 06:59 Intake Total 880 ml Output Total 600 ml 300 ml Balance 280 ml -300 ml Intake Oral 880 ml Stool Total 600 ml 300 ml # Voids 2 3 # Bowel Movements 2 1 Height (Feet): 5 Height (Inches): 8.00 Weight (Pounds): 124 General Appearance: no apparent distress EENT: TMs normal Neck: supple Cardiovascular: regular rhythm Respiratory/Chest: normal breath sounds Abdomen: no mass Extremities: non-tender Edema: no edema noted Leg (L), no edema noted Leg (R) Edema: mild edema Neurologic: alert Skin: warm/dry Objective PHYSICAL EXAMINATION: GENERAL: elderly cachectic-looking gentleman in no respiratory distress NECK: Supple. No jugular venous distention. LUNGS: Ctab, Less coughing CARDIAC: Regular rhythm. A holosystolic regurgitant murmur ++ ABDOMEN: Soft and not. ++ bowel sounds. EXTREMITIES: There is no clubbing, no cyanosis. There is no edema. Back: He has extensive ischemic changes in the skin in the inner thigh on both legs with eschar formation. Gordo Jang MD Oct 17, 2018 12:01
--- NOTE | 2018-10-17 14:12 | Nephrology Progress Note ---
Assessment/Plan Problem List: (1) Cardiomyopathy (2) ESRD on dialysis (3) Bacteremia (4) Homeless (5) Leukocytosis Assessment: strep bacteremia Assessment ESRD- Cardiomyopathy Anemia of CKD Hyperkalemia Leukocytosis, ? Line infection FTT (failure to thrive) in adult- malnutrition Homeless Plan IV iron- Kayexelate as needed Iron- stop IV Iron as ferritin is over 1500 Folate- po Dialysis as needed, next 10/18 Phos binders 2D echo Septal hypokinesis.mid to distal Inferior wall hypokinesis Left ventricular ejection fraction estimated to be 40%. blood cultures per orders Subjective ROS Limited/Unobtainable: No Constitutional: Reports: malaise Objective Objective Last 24 Hour Vital Signs Date Time Temp Pulse Resp B/P (MAP) Pulse Ox O2 Delivery O2 Flow Rate FiO2 10/17/18 12:47 97.2 10/17/18 12:00 97.7 73 18 149/80 (103) 97 10/17/18 08:07 138/78 10/17/18 08:06 64 138/78 10/17/18 08:00 97.3 75 18 152/85 (107) 98 10/17/18 07:51 Room Air 10/17/18 04:00 97.2 64 17 138/78 (98) 96 10/17/18 00:00 97.0 70 17 147/87 (107) 98 10/16/18 21:18 69 147/89 10/16/18 21:00 Room Air 10/16/18 20:00 97.7 69 17 147/89 (108) 98 10/16/18 16:00 97.7 72 149/82 (104) Intake and Output 10/16/18 10/17/18 18:59 06:59 Intake Total 880 ml Output Total 600 ml 300 ml Balance 280 ml -300 ml Intake Oral 880 ml Stool Total 600 ml 300 ml # Voids 2 3 # Bowel Movements 2 1 Height (Feet): 5 Height (Inches): 8.00 Weight (Pounds): 124 General Appearance: no apparent distress, lethargic Cardiovascular: normal rate Respiratory/Chest: decreased breath sounds Abdomen: soft Objective no change David Meyers MD Oct 17, 2018 14:12
--- NOTE | 2018-10-17 15:45 | General Progress Note ---
Assessment/Plan Assessment/Plan Assessment - Anemia, multifactorial - Hepatitis C - Patient declines EGD/Colon - ESRD / HD - malnutrition - poor fdc prognosis Recommendations - EPO - PPI - follow labs - push po - no EGD/Colon , per patient wishes - can consider HCV eradication at later date Subjective Allergies: Coded Allergies: No Known Allergies (Unverified , 10/04/18) Subjective Feels same no abdominal symptoms appetite better Objective Last 24 Hour Vital Signs Date Time Temp Pulse Resp B/P (MAP) Pulse Ox O2 Delivery O2 Flow Rate FiO2 10/17/18 12:47 97.2 10/17/18 12:00 97.7 73 18 149/80 (103) 97 10/17/18 08:07 138/78 10/17/18 08:06 64 138/78 10/17/18 08:00 97.3 75 18 152/85 (107) 98 10/17/18 07:51 Room Air 10/17/18 04:00 97.2 64 17 138/78 (98) 96 10/17/18 00:00 97.0 70 17 147/87 (107) 98 10/16/18 21:18 69 147/89 10/16/18 21:00 Room Air 10/16/18 20:00 97.7 69 17 147/89 (108) 98 10/16/18 16:00 97.7 72 149/82 (104) Intake and Output 10/16/18 10/17/18 18:59 06:59 Intake Total 880 ml Output Total 600 ml 300 ml Balance 280 ml -300 ml Intake Oral 880 ml Stool Total 600 ml 300 ml # Voids 2 3 # Bowel Movements 2 1 Height (Feet): 5 Height (Inches): 8.00 Weight (Pounds): 124 Objective Thin NAD NCAT supple CTA RR soft ND no edema, (+) skin redness on thighs Cara Berkowitz MD Oct 17, 2018 15:45
[2018-10-17 16:00] VITALS: BP 149/83
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
[2018-10-17 20:00] VITALS: BP 149/84
[2018-10-17] MEDS: Carvedilol 12.5mg tab ORAL SCH (20:44)
[2018-10-17] MEDS: OLANZapine 10mg tab ORAL SCH (20:45)
--- NOTE | 2018-10-17 21:26 | Pulmonology Progress Note ---
Assessment/Plan Assessment/Plan Pulmonary Progress Note: Assessment/Plan Problem List: (1) Hepatitis C ICD Codes: B19.20 - Unspecified viral hepatitis C without hepatic coma SNOMED: 41126382 (2) Anemia ICD Codes: D64.9 - Anemia, unspecified SNOMED: 982716794 (3) Dialysis patient ICD Codes: Z99.2 - Dependence on renal dialysis SNOMED: 109878330 (4) FTT (failure to thrive) in adult ICD Codes: R62.7 - Adult failure to thrive SNOMED: 632685377 (5) Cellulitis ICD Codes: L03.90 - Cellulitis, unspecified SNOMED: 662831825 Qualifiers: Qualified Codes: L03.116 - Cellulitis of left lower limb (6) Leukocytosis ICD Codes: D72.829 - Elevated white blood cell count, unspecified SNOMED: 431628426, 073960205 (7) Homeless ICD Codes: Z59.0 - Homelessness SNOMED: 96603981, 236789622 (8) Missed dialysis SNOMED: 517331513 (9) CHF (congestive heart failure) ICD Codes: I50.9 - Heart failure, unspecified SNOMED: 39516243 (10) Bacteremia ICD Codes: R78.81 - Bacteremia SNOMED: 5170030 Assessment/Plan ASSESSMENT: The patient is a 62-year-old homeless male with a history of IV drug use; hepatitis C; hepatopathy; end-stage renal disease, on dialysis via tunneled cath; and noncompliance with missed dialysis, presenting with weakness, failure to thrive, and likely infection with leukocytosis and systemic inflammatory response syndrome/sepsis. No new complaints. PROBLEM LIST: 1. End-stage renal disease, status post missed dialysis via PermCath. 2. Anemia, acute on chronic, with evidence of iron deficiency. 3. Hepatitis C. 4. Left thigh wound, imaging at [facility] reviewed. No evidence of abscess. 5. IV drug use. 6. Homelessness. 7. Systemic inflammatory response syndrome/sepsis 8. Leukocytosis. 9. Hypothyroidism 10. GPC bacteremia, likely contaminant 11. CHF with systolic dysfunction TREATMENT PLAN: 1. No IV, Augmentin/Doxy per ID - pt declines many doses 2. F/U repeat Cx's 3. HD per renal 4. Surgery recs 5. wound care 6. Monitor hemoglobin and hematocrit, transfuse PRN Hb < 7, refuses EPO, F/U plasma cell labs 7. F/U GI and heme recs 8. F/U cardiology recs, medical management of CHF, ischemia eval at some point 9. Social work evaluation to assist with placement. D/W SW, working with insurance plan RE: SNF placement 10. Pain control/supportive care. 11. Continue Synthroid 12. Multivitamins, thiamine, and folate. 13. DVT prophylaxis, heparin subcutaneous. 14. Diabetic renal diet. 15. The patient is a Full Code. 16. Psych recs Subjective Allergies: Coded Allergies: No Known Allergies (Unverified , 10/04/18) Subjective AFVSS, stable on RA Sales And Events Coordinator notes reviewed Declines endoscopy, declines removal of tunneled cath Declines multiple meds No F/C/CP/SOB/N/V/D Objective Last 24 Hour Vital Signs Noted Height (Feet): 5 Height (Inches): 8.00 Weight (Pounds): 117 General Appearance: no apparent distress, cachetic EENT: PERRL/EOMI Neck: non-tender, normal alignment, supple Cardiovascular: normal peripheral pulses, normal rate, regular rhythm Respiratory/Chest: chest wall non-tender, lungs clear, normal breath sounds Abdomen: normal bowel sounds, non tender, soft, no organomegaly, no mass Edema: no edema noted Arm (L), no edema noted Arm (R), no edema noted Leg (L), no edema noted Leg (R), no edema noted Pedal (L), no edema noted Pedal (R), no edema noted Generalized Subjective ROS Limited/Unobtainable: No Allergies: Coded Allergies: No Known Allergies (Unverified , 10/04/18) Objective Last 24 Hour Vital Signs Date Time Temp Pulse Resp B/P (MAP) Pulse Ox O2 Delivery O2 Flow Rate FiO2 10/17/18 20:44 69 149/84 10/17/18 17:00 97.2 10/17/18 16:00 97.8 79 20 149/83 (105) 97 10/17/18 12:00 97.7 73 18 149/80 (103) 97 10/17/18 08:07 138/78 10/17/18 08:06 64 138/78 10/17/18 08:00 97.3 75 18 152/85 (107) 98 10/17/18 07:51 Room Air 10/17/18 04:00 97.2 64 17 138/78 (98) 96 10/17/18 00:00 97.0 70 17 147/87 (107) 98 Intake and Output 10/16/18 10/17/18 19:00 07:00 Intake Total 880 ml Output Total 600 ml 300 ml Balance 280 ml -300 ml Intake Oral 880 ml Stool Total 600 ml 300 ml # Voids 2 3 # Bowel Movements 2 1 Current Medications Medications (Trade) Dose Ordered Sig/Mary Kay Route PRN Reason Start Time Stop Time Status Last Admin Dose Admin Acetaminophen (Tylenol) 650 mg Q6H PRN ORAL Mild Pain/Temp > 100.5 10/04/18 23:30 11/03/18 23:29 Acetaminophen/ Hydrocodone Bitart ([place] 5/325) 1 tab Q4H PRN ORAL Moderate Pain (Pain Scale 4-6) 10/12/18 10:00 10/19/18 09:59 10/17/18 20:45 Carvedilol (Coreg) 12.5 mg EVERY 12 HOURS ORAL 10/17/18 21:00 11/11/18 20:59 10/17/18 20:44 Docusate Sodium (Colace) 100 mg THREE TIMES A DAY ORAL 10/05/18 13:00 11/04/18 12:59 10/17/18 17:15 Epoetin David (Procrit (for ESRD on dialysis)) 10,000 units THU-THU-THU SUBQ 10/08/18 21:00 11/07/18 20:59 10/15/18 21:11 Fluoxetine HCl (PROzac) 20 mg DAILY ORAL 10/13/18 09:00 11/12/18 08:59 10/17/18 08:06 Folic Acid (Folate) 3 mg DAILY ORAL 10/05/18 11:04 11/04/18 11:03 10/17/18 08:06 Heparin Sodium (Porcine) (Heparin 5000 units/ml) 5,000 units EVERY 12 HOURS SUBQ 10/05/18 09:00 11/04/18 08:59 10/17/18 20:43 Levothyroxine Sodium (Synthroid) 25 mcg DAILY@0630 ORAL 10/06/18 06:30 1/4/19 06:29 10/17/18 06:42 Lisinopril (Zestril) 5 mg DAILY ORAL 10/08/18 10:47 11/07/18 10:46 10/17/18 08:07 Olanzapine (ZyPREXA) 10 mg BEDTIME ORAL 10/13/18 00:30 11/12/18 00:29 10/17/18 20:45 Ondansetron HCl (Zofran) 4 mg Q4HR PRN IVP Nausea & Vomiting 10/04/18 23:30 11/03/18 23:29 Pantoprazole (Protonix) 40 mg DAILY ORAL 10/05/18 11:02 11/04/18 11:01 10/17/18 08:05 Sevelamer Carbonate (Renvela) 1,600 mg THREE TIMES A DAY ORAL 10/06/18 18:00 11/04/18 12:59 10/17/18 17:15 Thiamine HCl (Vitamin B1) 100 mg DAILY ORAL 10/10/18 10:00 11/09/18 09:59 10/17/18 08:07 Vitamin B Complex/ Vit C/Folic Acid (Nephrovite) 1 tab DAILY ORAL 10/06/18 09:00 11/05/18 08:59 10/17/18 08:06 Miguel Kirby MD Oct 17, 2018 21:26
[2018-10-18] VITALS: BP 133/79
[2018-10-18 04:00] VITALS: BP 149/84
[2018-10-18] MEDS: Norco 5mg/325mg tab ORAL PRN ×4 (04:26→21:24)
[2018-10-18] MEDS: Levothyroxine 25mcg tab ORAL SCH (06:05)
--- NOTE | 2018-10-18 07:09 | General Progress Note ---
Assessment/Plan Assessment/Plan Assessment - Anemia, multifactorial - Hepatitis C - Patient declines EGD/Colon - ESRD / HD - malnutrition - poor fdc prognosis Recommendations - EPO - PPI - follow labs - push po - no EGD/Colon , per patient wishes - can consider HCV eradication at later date Subjective Allergies: Coded Allergies: No Known Allergies (Unverified , 10/04/18) Subjective Feels same no abdominal symptoms appetite better Requests a more liberal diet advised to discuss with renal Objective Last 24 Hour Vital Signs Date Time Temp Pulse Resp B/P (MAP) Pulse Ox O2 Delivery O2 Flow Rate FiO2 10/18/18 04:00 97.8 69 16 149/84 (105) 98 10/18/18 00:00 98.1 65 16 133/79 (97) 96 10/17/18 21:00 Room Air 10/17/18 20:44 69 149/84 10/17/18 20:00 96.8 69 17 149/84 (105) 96 10/17/18 17:00 97.2 10/17/18 16:00 97.8 79 20 149/83 (105) 97 10/17/18 12:00 97.7 73 18 149/80 (103) 97 10/17/18 08:07 138/78 10/17/18 08:06 64 138/78 10/17/18 08:00 97.3 75 18 152/85 (107) 98 10/17/18 07:51 Room Air Intake and Output 10/17/18 10/18/18 19:00 07:00 Intake Total 1200 ml Output Total 600 ml 800 ml Balance 600 ml -800 ml Intake Oral 1200 ml Output Urine Total 600 ml 800 ml # Voids 3 5 # Bowel Movements 2 Height (Feet): 5 Height (Inches): 8.00 Weight (Pounds): 124 Objective Thin NAD NCAT supple CTA RR soft ND no edema, (+) skin redness on thighs Cara Berkowitz MD Oct 18, 2018 07:09
[2018-10-18 07:55] VITALS: BP 153/88
[2018-10-18] MEDS: Carvedilol 12.5mg tab ORAL SCH ×2 (09:00→21:23)
[2018-10-18] MEDS: Thiamine 100mg tab ORAL SCH (09:00)
[2018-10-18] MEDS: Lisinopril 2.5mg tab ORAL SCH (09:00)
[2018-10-18] MEDS: Nephrovite tab (Rena-Vite) ORAL SCH (09:00)
[2018-10-18] MEDS: Docusate 100mg cap ORAL SCH ×3 (09:00→17:19)
[2018-10-18] MEDS: Heparin 5000 units/ml inj SUBQ SCH ×2 (09:00→21:00)
[2018-10-18 12:00] VITALS: BP 155/85
--- NOTE | 2018-10-18 12:44 | Nephrology Progress Note ---
Assessment/Plan Problem List: (1) Cardiomyopathy (2) ESRD on dialysis (3) Bacteremia (4) Homeless (5) Leukocytosis Assessment: strep bacteremia Assessment ESRD- Cardiomyopathy Anemia of CKD Hyperkalemia Leukocytosis, ? Line infection FTT (failure to thrive) in adult- malnutrition Homeless Plan IV iron- Kayexelate as needed Iron- stop IV Iron as ferritin is over 1500 Folate- po Dialysis as needed, next 10/18 Phos binders 2D echo Septal hypokinesis.mid to distal Inferior wall hypokinesis Left ventricular ejection fraction estimated to be 40%. blood cultures per orders Subjective ROS Limited/Unobtainable: No Constitutional: Reports: weakness Objective Objective Last 24 Hour Vital Signs Date Time Temp Pulse Resp B/P (MAP) Pulse Ox O2 Delivery O2 Flow Rate FiO2 10/18/18 12:15 97.8 10/18/18 12:00 97.3 70 18 155/85 (108) 98 10/18/18 09:00 Room Air 10/18/18 07:55 97.8 68 18 153/88 (109) 97 10/18/18 04:00 97.8 69 16 149/84 (105) 98 10/18/18 00:00 98.1 65 16 133/79 (97) 96 10/17/18 21:00 Room Air 10/17/18 20:44 69 149/84 10/17/18 20:00 96.8 69 17 149/84 (105) 96 10/17/18 16:00 97.8 79 20 149/83 (105) 97 Intake and Output 10/17/18 10/18/18 19:00 07:00 Intake Total 1200 ml Output Total 600 ml 800 ml Balance 600 ml -800 ml Intake Oral 1200 ml Output Urine Total 600 ml 800 ml # Voids 3 5 # Bowel Movements 2 Height (Feet): 5 Height (Inches): 8.00 Weight (Pounds): 124 General Appearance: no apparent distress Objective no change David Meyers MD Oct 18, 2018 12:44
--- NOTE | 2018-10-18 12:56 | General Surgery Progress Note ---
General Surgery-Progress Note Subjective Symptoms: improved Additional Comments more comfortable. no acute events Objective Last 24 Hour Vital Signs Date Time Temp Pulse Resp B/P (MAP) Pulse Ox O2 Delivery O2 Flow Rate FiO2 10/18/18 12:15 97.8 10/18/18 12:00 97.3 70 18 155/85 (108) 98 10/18/18 09:00 Room Air 10/18/18 07:55 97.8 68 18 153/88 (109) 97 10/18/18 04:00 97.8 69 16 149/84 (105) 98 10/18/18 00:00 98.1 65 16 133/79 (97) 96 10/17/18 21:00 Room Air 10/17/18 20:44 69 149/84 10/17/18 20:00 96.8 69 17 149/84 (105) 96 10/17/18 16:00 97.8 79 20 149/83 (105) 97 I&O Intake and Output 10/17/18 10/18/18 19:00 07:00 Intake Total 1200 ml Output Total 600 ml 800 ml Balance 600 ml -800 ml Intake Oral 1200 ml Output Urine Total 600 ml 800 ml # Voids 3 5 # Bowel Movements 2 Wound: clean, dry Drains: other Cardiovascular: RSR Respiratory: clear Abdomen: soft, non-tender, present bowel sounds Extremities: other Plan Problems: (1) Cellulitis Assessment & Plan: Multiple wounds noted on bilateral lower extremities and arms. some self inflicted and some skin rash left lower extremity cellulitis from resolving prior I&D/infection no drainage noted mild erythema patient expressed tenderness prior to even being touched and asks for pain meds leukocytosis resolved. improving. on HD via right tunneled catheter left lateral lower extremity wounds dry and eschar falling off with exposed subcutaneous tissue that is dry on exam no abscess noted wounds as above patient non compliant with care of wounds as noted in history - was more compliant today wash wound daily with NS apply skin protectant / therahoney apply non adherent dressing / Xeroform followed by kevin su thank you will follow with Raymond Gomes Oct 18, 2018 12:56
[2018-10-18 16:00] VITALS: BP 135/68
--- NOTE | 2018-10-18 18:35 | General Progress Note ---
Assessment/Plan Assessment/Plan #. Anemia of kidney disease/esrd -- anemia panel reviewed, has end-stage renal disease, status post missed dialysis via PermCath. --> transfuse on prn basis, if hgb <7 --> no evidence for hemolysis noted --> do not recommend iron at this time --> cont po folic acid daily --> HD on permacath R arm --> getting epogen since hd and esrd, also vit b/folic acid --> hemoglobin electrophoresis is normal, no sickle cell trait noted --> hgb 7.7-->7.6-->7.8 #. Thrombocytopenia due to underlying Hepatitis C. has been chronic, unchanged --> Improved/Resolved --> afp 2.1, and trend plts as needed --> peripheral smear reviewed --> on abx as per ID --> ok for ppx if plt >50k w/ wither heparin --> Transfuse if Plt < 20k and fever, or if Plt < 10k without fever #. Leukocytosis likely due to infection. --> Improved/Resolved --> Remains on IV abx #. Left thigh wound, imaging at [facility] reviewed. No evidence of abscess. --> on abx as per id --> skin protectant per surg #. IV drug use. #. Homelessness. #. Systemic inflammatory response syndrome. #. Hypothyroidism. #. Hep C -- outpatient eradication #. ESRD on hd 3x a week GREATLY APPRECIATE CONSULTATION. Subjective Constitutional: Denies: no symptoms, chills, diaphoresis, fever, malaise, weakness, other Cardiovascular: Denies: no symptoms, chest pain, edema, irregular heart rate, lightheadedness, palpitations, syncope, other Respiratory: Denies: no symptoms, cough, orthopnea, shortness of breath, SOB with excertion, SOB at rest, sputum, stridor, wheezing, other Gastrointestinal/Abdominal: Denies: no symptoms, abdomen distended, abdominal pain, black stools, tarry stools, blood in stool, constipated, diarrhea, difficulty swallowing, nausea, poor appetite, poor fluid intake, rectal bleeding , vomiting, other Genitourinary: Denies: no symptoms, burning, discharge, frequency, flank pain, hematuria, incontinence, pain, urgency, other Neurologic/Psychiatric: Denies: no symptoms, anxiety, depressed, emotional problems, headache, numbness, paresthesia, pre-existing deficit, seizure, tingling, tremors, weakness, other Endocrine: Denies: no symptoms, excessive sweating, flushing, intolerance to cold, intolerance to heat, increased hunger, increased thirst, increased urine, unexplained weight gain, unexplained weight loss, other Hematologic/Lymphatic: Denies: no symptoms, anemia, easy bleeding, easy bruising, other Allergies: Coded Allergies: No Known Allergies (Unverified , 10/04/18) Subjective Pt awake and alert. No acute events. H/H stable. HD for today. Continue meds today. Objective Last 24 Hour Vital Signs Date Time Temp Pulse Resp B/P (MAP) Pulse Ox O2 Delivery O2 Flow Rate FiO2 10/18/18 17:49 98.4 10/18/18 16:00 98.4 75 18 135/68 (90) 96 10/18/18 12:00 97.3 70 18 155/85 (108) 98 10/18/18 09:00 Room Air 10/18/18 07:55 97.8 68 18 153/88 (109) 97 10/18/18 04:00 97.8 69 16 149/84 (105) 98 10/18/18 00:00 98.1 65 16 133/79 (97) 96 10/17/18 21:00 Room Air 10/17/18 20:44 69 149/84 10/17/18 20:00 96.8 69 17 149/84 (105) 96 Intake and Output 10/17/18 10/18/18 18:59 06:59 Intake Total 1200 ml Output Total 600 ml 800 ml Balance 600 ml -800 ml Intake Oral 1200 ml Output Urine Total 600 ml 800 ml # Voids 3 5 # Bowel Movements 2 Height (Feet): 5 Height (Inches): 8.00 Weight (Pounds): 124 General Appearance: lethargic EENT: TMs normal Neck: normal inspection Cardiovascular: regular rhythm Respiratory/Chest: normal breath sounds Abdomen: no mass Extremities: non-tender Edema: mild edema Neurologic: abnormal gait Skin: warm/dry Objective PHYSICAL EXAMINATION: GENERAL: elderly cachectic-looking gentleman in no respiratory distress NECK: Supple. No jugular venous distention. LUNGS: Ctab, Less coughing CARDIAC: Regular rhythm. A holosystolic regurgitant murmur ++ ABDOMEN: Soft and not. ++ bowel sounds. EXTREMITIES: There is no clubbing, no cyanosis. There is no edema. Back: He has extensive ischemic changes in the skin in the inner thigh on both legs with eschar formation. Gordo Jnag MD Oct 18, 2018 18:35
[2018-10-18 21:00] VITALS: BP 157/85
[2018-10-18] MEDS: OLANZapine 10mg tab ORAL SCH (21:23)
[2018-10-18] MEDS: Epogen (for ESRD on dialysis) SUBQ SCH (21:23)
--- NOTE | 2018-10-18 23:14 | Pulmonology Progress Note ---
Assessment/Plan Assessment/Plan Pulmonary Progress Note: Assessment/Plan Problem List: (1) Hepatitis C ICD Codes: B19.20 - Unspecified viral hepatitis C without hepatic coma SNOMED: 91416458 (2) Anemia ICD Codes: D64.9 - Anemia, unspecified SNOMED: 794026289 (3) Dialysis patient ICD Codes: Z99.2 - Dependence on renal dialysis SNOMED: 324422473 (4) FTT (failure to thrive) in adult ICD Codes: R62.7 - Adult failure to thrive SNOMED: 315750440 (5) Cellulitis ICD Codes: L03.90 - Cellulitis, unspecified SNOMED: 246911183 Qualifiers: Qualified Codes: L03.116 - Cellulitis of left lower limb (6) Leukocytosis ICD Codes: D72.829 - Elevated white blood cell count, unspecified SNOMED: 247998146, 670238483 (7) Homeless ICD Codes: Z59.0 - Homelessness SNOMED: 84682364, 828469278 (8) Missed dialysis SNOMED: 999208393 (9) CHF (congestive heart failure) ICD Codes: I50.9 - Heart failure, unspecified SNOMED: 41975571 (10) Bacteremia ICD Codes: R78.81 - Bacteremia SNOMED: 8252937 Assessment/Plan ASSESSMENT: The patient is a 62-year-old homeless male with a history of IV drug use; hepatitis C; hepatopathy; end-stage renal disease, on dialysis via tunneled cath; and noncompliance with missed dialysis, presenting with weakness, failure to thrive, and likely infection with leukocytosis and systemic inflammatory response syndrome/sepsis. No new complaints. PROBLEM LIST: 1. End-stage renal disease, status post missed dialysis via PermCath. 2. Anemia, acute on chronic, with evidence of iron deficiency. 3. Hepatitis C. 4. Left thigh wound, imaging at [facility] reviewed. No evidence of abscess. 5. IV drug use. 6. Homelessness. 7. Systemic inflammatory response syndrome/sepsis 8. Leukocytosis. 9. Hypothyroidism 10. GPC bacteremia, likely contaminant 11. CHF with systolic dysfunction TREATMENT PLAN: 1. No IV, Augmentin/Doxy per ID - pt declines many doses 2. F/U repeat Cx's 3. HD per renal 4. Surgery recs 5. wound care 6. Monitor hemoglobin and hematocrit, transfuse PRN Hb < 7, refuses EPO, F/U plasma cell labs 7. F/U GI and heme recs 8. F/U cardiology recs, medical management of CHF, ischemia eval at some point 9. Social work evaluation to assist with placement. D/W SW, working with insurance plan RE: SNF placement 10. Pain control/supportive care. 11. Continue Synthroid 12. Multivitamins, thiamine, and folate. 13. DVT prophylaxis, heparin subcutaneous. 14. Diabetic renal diet. 15. The patient is a Full Code. 16. Psych recs Subjective Allergies: Coded Allergies: No Known Allergies (Unverified , 10/04/18) Subjective AFVSS, stable on RA Technology Risk Intern notes reviewed Declines endoscopy, declines removal of tunneled cath Declines multiple meds No F/C/CP/SOB/N/V/D Objective Last 24 Hour Vital Signs Noted Height (Feet): 5 Height (Inches): 8.00 Weight (Pounds): 117 General Appearance: no apparent distress, cachetic EENT: PERRL/EOMI Neck: non-tender, normal alignment, supple Cardiovascular: normal peripheral pulses, normal rate, regular rhythm Respiratory/Chest: chest wall non-tender, lungs clear, normal breath sounds Abdomen: normal bowel sounds, non tender, soft, no organomegaly, no mass Edema: no edema noted Arm (L), no edema noted Arm (R), no edema noted Leg (L), no edema noted Leg (R), no edema noted Pedal (L), no edema noted Pedal (R), no edema noted Generalized Subjective ROS Limited/Unobtainable: No Allergies: Coded Allergies: No Known Allergies (Unverified , 10/04/18) Objective Last 24 Hour Vital Signs Date Time Temp Pulse Resp B/P (MAP) Pulse Ox O2 Delivery O2 Flow Rate FiO2 10/18/18 21:23 73 157/85 10/18/18 17:49 98.4 10/18/18 16:00 98.4 75 18 135/68 (90) 96 10/18/18 12:00 97.3 70 18 155/85 (108) 98 10/18/18 09:00 Room Air 10/18/18 07:55 97.8 68 18 153/88 (109) 97 10/18/18 04:00 97.8 69 16 149/84 (105) 98 10/18/18 00:00 98.1 65 16 133/79 (97) 96 Intake and Output 10/17/18 10/18/18 19:00 07:00 Intake Total 1200 ml Output Total 600 ml 800 ml Balance 600 ml -800 ml Intake Oral 1200 ml Output Urine Total 600 ml 800 ml # Voids 3 5 # Bowel Movements 2 Current Medications Medications (Trade) Dose Ordered Sig/Mary Kay Route PRN Reason Start Time Stop Time Status Last Admin Dose Admin Acetaminophen (Tylenol) 650 mg Q6H PRN ORAL Mild Pain/Temp > 100.5 10/04/18 23:30 11/03/18 23:29 Acetaminophen/ Hydrocodone Bitart ([place] 5/325) 1 tab Q4H PRN ORAL Moderate Pain (Pain Scale 4-6) 10/12/18 10:00 10/19/18 09:59 10/18/18 21:24 Carvedilol (Coreg) 12.5 mg EVERY 12 HOURS ORAL 10/17/18 21:00 11/11/18 20:59 10/18/18 21:23 Docusate Sodium (Colace) 100 mg THREE TIMES A DAY ORAL 10/05/18 13:00 11/04/18 12:59 10/18/18 17:19 Epoetin David (Procrit (for ESRD on dialysis)) 10,000 units THU-THU-THU SUBQ 10/08/18 21:00 11/07/18 20:59 10/18/18 21:23 Fluoxetine HCl (PROzac) 20 mg DAILY ORAL 10/13/18 09:00 11/12/18 08:59 10/17/18 08:06 Folic Acid (Folate) 3 mg DAILY ORAL 10/05/18 11:04 11/04/18 11:03 10/17/18 08:06 Heparin Sodium (Porcine) (Heparin 5000 units/ml) 5,000 units EVERY 12 HOURS SUBQ 10/05/18 09:00 11/04/18 08:59 10/17/18 20:43 Levothyroxine Sodium (Synthroid) 25 mcg DAILY@0630 ORAL 10/06/18 06:30 11/05/18 06:29 10/18/18 06:05 Lisinopril (Zestril) 5 mg DAILY ORAL 10/08/18 10:47 1/6/19 10:46 10/17/18 08:07 Olanzapine (ZyPREXA) 10 mg BEDTIME ORAL 10/13/18 00:30 11/12/18 00:29 10/18/18 21:23 Ondansetron HCl (Zofran) 4 mg Q4HR PRN IVP Nausea & Vomiting 10/04/18 23:30 11/03/18 23:29 Pantoprazole (Protonix) 40 mg DAILY ORAL 10/05/18 11:02 11/04/18 11:01 10/17/18 08:05 Sevelamer Carbonate (Renvela) 1,600 mg THREE TIMES A DAY ORAL 10/06/18 18:00 11/04/18 12:59 10/18/18 17:19 Thiamine HCl (Vitamin B1) 100 mg DAILY ORAL 10/10/18 10:00 11/09/18 09:59 10/17/18 08:07 Vitamin B Complex/ Vit C/Folic Acid (Nephrovite) 1 tab DAILY ORAL 10/06/18 09:00 11/05/18 08:59 10/17/18 08:06 Miguel Kirby MD Oct 18, 2018 23:14
[2018-10-19] VITALS: BP 146/79
--- NOTE | 2018-10-19 00:01 | General Progress Note ---
Assessment/Plan Problem List: (1) Schizophrenia ICD Codes: F20.9 - Schizophrenia, unspecified SNOMED: 44068511 Assessment/Plan Zyprexa 10mg po qhs Remeron 7.5mg qhs provided ro/st Subjective Date patient seen: Oct 18, 2018 Neurologic/Psychiatric: Reports: anxiety, depressed, emotional problems Allergies: Coded Allergies: No Known Allergies (Unverified , 10/04/18) Subjective the pt is doing better Objective Last 24 Hour Vital Signs Date Time Temp Pulse Resp B/P (MAP) Pulse Ox O2 Delivery O2 Flow Rate FiO2 10/18/18 21:23 73 157/85 10/18/18 21:00 97.9 73 18 157/85 (109) 97 10/18/18 21:00 Room Air 10/18/18 17:49 98.4 10/18/18 16:00 98.4 75 18 135/68 (90) 96 10/18/18 12:00 97.3 70 18 155/85 (108) 98 10/18/18 09:00 Room Air 10/18/18 07:55 97.8 68 18 153/88 (109) 97 10/18/18 04:00 97.8 69 16 149/84 (105) 98 Intake and Output 10/18/18 10/19/18 19:00 07:00 Intake Total 720 ml Output Total 1000 ml Balance -280 ml Intake Oral 720 ml Output Urine Total 1000 ml # Bowel Movements 1 Height (Feet): 5 Height (Inches): 8.00 Weight (Pounds): 122 General Appearance: no apparent distress, alert Neurologic: oriented x 3, responsive, depressed affect Minal Nuñez MD Oct 19, 2018 00:01
[2018-10-19] MEDS: Norco 5mg/325mg tab ORAL PRN ×2 (03:14→09:15)
[2018-10-19 04:00] VITALS: BP 154/79
[2018-10-19] MEDS: Levothyroxine 25mcg tab ORAL SCH (05:43)
[2018-10-19 08:00] VITALS: BP 134/78
[2018-10-19] MEDS: Docusate 100mg cap ORAL SCH ×3 (09:00→17:28)
[2018-10-19] MEDS: Heparin 5000 units/ml inj SUBQ SCH ×2 (09:00→21:00)
[2018-10-19] MEDS: Carvedilol 12.5mg tab ORAL SCH ×2 (09:09→21:11)
[2018-10-19] MEDS: Lisinopril 2.5mg tab ORAL SCH (09:09)
[2018-10-19] MEDS: Nephrovite tab (Rena-Vite) ORAL SCH (09:09)
[2018-10-19] MEDS: Thiamine 100mg tab ORAL SCH (09:10)
[2018-10-19] MEDS ORDERED: Norco 5mg/325mg tab ORAL PRN (11:45)
[2018-10-19 11:59] VITALS: BP 138/81
--- NOTE | 2018-10-19 12:28 | Nephrology Progress Note ---
Assessment/Plan Problem List: (1) Cardiomyopathy (2) ESRD on dialysis (3) Bacteremia (4) Homeless (5) Leukocytosis Assessment: strep bacteremia Assessment ESRD- Cardiomyopathy Anemia of CKD Hyperkalemia Leukocytosis, ? Line infection FTT (failure to thrive) in adult- malnutrition Homeless Plan IV iron- Kayexelate as needed Iron- stop IV Iron as ferritin is over 1500 Folate- po Dialysis as needed, next 10/18 Phos binders 2D echo Septal hypokinesis.mid to distal Inferior wall hypokinesis Left ventricular ejection fraction estimated to be 40%. blood cultures per orders Objective Objective Last 24 Hour Vital Signs Date Time Temp Pulse Resp B/P (MAP) Pulse Ox O2 Delivery O2 Flow Rate FiO2 10/19/18 11:59 97.7 74 19 138/81 (100) 98 10/19/18 09:09 72 134/78 10/19/18 09:09 134/78 10/19/18 09:00 Room Air 10/19/18 08:00 97.9 72 20 134/78 (96) 98 10/19/18 04:00 98.2 63 20 154/79 (104) 98 10/19/18 00:00 98.2 64 16 146/79 (101) 97 10/18/18 21:23 73 157/85 10/18/18 21:00 97.9 73 18 157/85 (109) 97 10/18/18 21:00 Room Air 10/18/18 17:49 98.4 10/18/18 16:00 98.4 75 18 135/68 (90) 96 Intake and Output 10/18/18 10/19/18 19:00 07:00 Intake Total 720 ml 600 ml Output Total 1000 ml 375 ml Balance -280 ml 225 ml Intake Oral 720 ml 600 ml Output Urine Total 1000 ml 375 ml # Bowel Movements 1 Height (Feet): 5 Height (Inches): 8.00 Weight (Pounds): 122 Objective no change David Meyers MD Oct 19, 2018 12:28
--- NOTE | 2018-10-19 12:40 | General Surgery Progress Note ---
General Surgery-Progress Note Subjective Symptoms: improved, tolerating diet, passing flatus Objective Last 24 Hour Vital Signs Date Time Temp Pulse Resp B/P (MAP) Pulse Ox O2 Delivery O2 Flow Rate FiO2 10/19/18 11:59 97.7 74 19 138/81 (100) 98 10/19/18 09:09 72 134/78 10/19/18 09:09 134/78 10/19/18 09:00 Room Air 10/19/18 08:00 97.9 72 20 134/78 (96) 98 10/19/18 04:00 98.2 63 20 154/79 (104) 98 10/19/18 00:00 98.2 64 16 146/79 (101) 97 10/18/18 21:23 73 157/85 10/18/18 21:00 97.9 73 18 157/85 (109) 97 10/18/18 21:00 Room Air 10/18/18 17:49 98.4 10/18/18 16:00 98.4 75 18 135/68 (90) 96 I&O Intake and Output 10/18/18 10/19/18 19:00 07:00 Intake Total 720 ml 600 ml Output Total 1000 ml 375 ml Balance -280 ml 225 ml Intake Oral 720 ml 600 ml Output Urine Total 1000 ml 375 ml # Bowel Movements 1 Dressing: dry Wound: clean, other Drains: other Cardiovascular: RSR Respiratory: clear Abdomen: soft, flat, non-tender, present bowel sounds Extremities: other Plan Problems: (1) Cellulitis Assessment & Plan: Multiple wounds noted on bilateral lower extremities and arms. some self inflicted and some skin rash left lower extremity cellulitis from resolving prior I&D/infection no drainage noted mild erythema patient expressed tenderness prior to even being touched and asks for pain meds leukocytosis resolved. improving. on HD via right tunneled catheter left lateral lower extremity wounds dry and eschar falling off with exposed subcutaneous tissue that is dry on exam no abscess noted wounds as above patient non compliant with care of wounds as noted in history - was more compliant today wash wound daily with NS apply skin protectant / therahoney apply non adherent dressing / Xeroform followed by kevin su thank you will follow with Raymond Gomes Oct 19, 2018 12:40
--- NOTE | 2018-10-19 13:54 | General Progress Note ---
Assessment/Plan Status: stable Assessment/Plan #. Anemia of kidney disease/esrd -- anemia panel reviewed, has end-stage renal disease, status post missed dialysis via PermCath. --> transfuse on prn basis, if hgb <7 --> no evidence for hemolysis noted --> do not recommend iron at this time --> cont po folic acid and thiamine daily --> HD on permacath R arm --> getting epogen since hd and esrd, also vit b/folic acid --> hemoglobin electrophoresis is normal, no sickle cell trait noted --> hgb 7.7-->7.6-->7.8 #. Thrombocytopenia due to underlying Hepatitis C. has been chronic, unchanged --> Improved/Resolved --> afp 2.1, and trend plts as needed --> peripheral smear reviewed --> on abx as per ID --> ok for ppx if plt >50k w/ wither heparin --> Transfuse if Plt < 20k and fever, or if Plt < 10k without fever #. Leukocytosis likely due to infection. --> Improved/Resolved --> completed IV abx #. Left thigh wound, imaging at [facility] reviewed. No evidence of abscess. --> completed abx as per id --> skin protectant per surg #. IV drug use. #. Homelessness. #. Systemic inflammatory response syndrome. #. Hypothyroidism. #. Hep C -- outpatient eradication #. ESRD on hd 3x a week GREATLY APPRECIATE CONSULTATION. Subjective Date patient seen: Oct 19, 2018 Hematologic/Lymphatic: Reports: anemia Allergies: Coded Allergies: No Known Allergies (Unverified , 10/04/18) All Systems: reviewed and negative except above Subjective Pt awake and alert. No acute events. Pt c/o pain. Pt refused heparin this morning. Objective Last 24 Hour Vital Signs Date Time Temp Pulse Resp B/P (MAP) Pulse Ox O2 Delivery O2 Flow Rate FiO2 10/19/18 11:59 97.7 74 19 138/81 (100) 98 10/19/18 09:09 72 134/78 10/19/18 09:09 134/78 10/19/18 09:00 Room Air 10/19/18 08:00 97.9 72 20 134/78 (96) 98 10/19/18 04:00 98.2 63 20 154/79 (104) 98 10/19/18 00:00 98.2 64 16 146/79 (101) 97 10/18/18 21:23 73 157/85 10/18/18 21:00 97.9 73 18 157/85 (109) 97 10/18/18 21:00 Room Air 10/18/18 17:49 98.4 10/18/18 16:00 98.4 75 18 135/68 (90) 96 Intake and Output 10/18/18 10/19/18 19:00 07:00 Intake Total 720 ml 600 ml Output Total 1000 ml 375 ml Balance -280 ml 225 ml Intake Oral 720 ml 600 ml Output Urine Total 1000 ml 375 ml # Bowel Movements 1 Height (Feet): 5 Height (Inches): 8.00 Weight (Pounds): 122 Objective PHYSICAL EXAMINATION: GENERAL: elderly cachectic-looking gentleman in no respiratory distress NECK: Supple. No jugular venous distention. LUNGS: Ctab, Less coughing CARDIAC: Regular rhythm. A holosystolic regurgitant murmur ++ ABDOMEN: Soft and not. ++ bowel sounds. EXTREMITIES: There is no clubbing, no cyanosis. There is no edema. Back: He has extensive ischemic changes in the skin in the inner thigh on both legs with eschar formation. Gordo Jang MD Oct 19, 2018 13:54
--- NOTE | 2018-10-19 15:49 | Pulmonology Progress Note ---
Assessment/Plan Assessment/Plan Pulmonary Progress Note: Assessment/Plan Problem List: (1) Hepatitis C ICD Codes: B19.20 - Unspecified viral hepatitis C without hepatic coma SNOMED: 23964422 (2) Anemia ICD Codes: D64.9 - Anemia, unspecified SNOMED: 636900649 (3) Dialysis patient ICD Codes: Z99.2 - Dependence on renal dialysis SNOMED: 158632702 (4) FTT (failure to thrive) in adult ICD Codes: R62.7 - Adult failure to thrive SNOMED: 072197556 (5) Cellulitis ICD Codes: L03.90 - Cellulitis, unspecified SNOMED: 442355312 Qualifiers: Qualified Codes: L03.116 - Cellulitis of left lower limb (6) Leukocytosis ICD Codes: D72.829 - Elevated white blood cell count, unspecified SNOMED: 780356723, 658658963 (7) Homeless ICD Codes: Z59.0 - Homelessness SNOMED: 07116022, 598547571 (8) Missed dialysis SNOMED: 911507396 (9) CHF (congestive heart failure) ICD Codes: I50.9 - Heart failure, unspecified SNOMED: 65976866 (10) Bacteremia ICD Codes: R78.81 - Bacteremia SNOMED: 8428655 Assessment/Plan ASSESSMENT: The patient is a 62-year-old homeless male with a history of IV drug use; hepatitis C; hepatopathy; end-stage renal disease, on dialysis via tunneled cath; and noncompliance with missed dialysis, presenting with weakness, failure to thrive, and likely infection with leukocytosis and systemic inflammatory response syndrome/sepsis. No new complaints. PROBLEM LIST: 1. End-stage renal disease, status post missed dialysis via PermCath. 2. Anemia, acute on chronic, with evidence of iron deficiency. 3. Hepatitis C. 4. Left thigh wound, imaging at [facility] reviewed. No evidence of abscess. 5. IV drug use. 6. Homelessness. 7. Systemic inflammatory response syndrome/sepsis 8. Leukocytosis. 9. Hypothyroidism 10. GPC bacteremia, likely contaminant 11. CHF with systolic dysfunction TREATMENT PLAN: 1. No IV, Augmentin/Doxy per ID - pt declines many doses 2. F/U repeat Cx's 3. HD per renal 4. Surgery recs 5. wound care 6. Monitor hemoglobin and hematocrit, transfuse PRN Hb < 7, refuses EPO, F/U plasma cell labs 7. F/U GI and heme recs 8. F/U cardiology recs, medical management of CHF, ischemia eval at some point 9. Social work evaluation to assist with placement. D/W SW, working with insurance plan RE: SNF placement 10. Pain control/supportive care. 11. Continue Synthroid 12. Multivitamins, thiamine, and folate. 13. DVT prophylaxis, heparin subcutaneous. 14. Diabetic renal diet. 15. The patient is a Full Code. 16. Psych recs Subjective Allergies: Coded Allergies: No Known Allergies (Unverified , 10/04/18) Subjective AFVSS, stable on RA Machine Bender notes reviewed Declines endoscopy, declines removal of tunneled cath Declines multiple meds No F/C/CP/SOB/N/V/D Objective Last 24 Hour Vital Signs Noted Height (Feet): 5 Height (Inches): 8.00 Weight (Pounds): 117 General Appearance: no apparent distress, cachetic EENT: PERRL/EOMI Neck: non-tender, normal alignment, supple Cardiovascular: normal peripheral pulses, normal rate, regular rhythm Respiratory/Chest: chest wall non-tender, lungs clear, normal breath sounds Abdomen: normal bowel sounds, non tender, soft, no organomegaly, no mass Edema: no edema noted Arm (L), no edema noted Arm (R), no edema noted Leg (L), no edema noted Leg (R), no edema noted Pedal (L), no edema noted Pedal (R), no edema noted Generalized Subjective ROS Limited/Unobtainable: No Allergies: Coded Allergies: No Known Allergies (Unverified , 10/04/18) Objective Last 24 Hour Vital Signs Date Time Temp Pulse Resp B/P (MAP) Pulse Ox O2 Delivery O2 Flow Rate FiO2 10/19/18 11:59 97.7 74 19 138/81 (100) 98 10/19/18 09:09 72 134/78 18 09:09 134/78 10/19/18 09:00 Room Air 10/19/18 08:00 97.9 72 20 134/78 (96) 98 10/19/18 04:00 98.2 63 20 154/79 (104) 98 10/19/18 00:00 98.2 64 16 146/79 (101) 97 10/18/18 21:23 73 157/85 10/18/18 21:00 97.9 73 18 157/85 (109) 97 10/18/18 21:00 Room Air 10/18/18 17:49 98.4 10/18/18 16:00 98.4 75 18 135/68 (90) 96 Intake and Output 10/18/18 10/19/18 19:00 07:00 Intake Total 720 ml 600 ml Output Total 1000 ml 375 ml Balance -280 ml 225 ml Intake Oral 720 ml 600 ml Output Urine Total 1000 ml 375 ml # Bowel Movements 1 Current Medications Medications (Trade) Dose Ordered Sig/Mary Kay Route PRN Reason Start Time Stop Time Status Last Admin Dose Admin Acetaminophen (Tylenol) 650 mg Q6H PRN ORAL Mild Pain/Temp > 100.5 10/04/18 23:30 11/03/18 23:29 Acetaminophen/ Hydrocodone Bitart ([place] 5/325) 1 tab Q4H PRN ORAL Severe Pain (Pain Scale 7-10) 10/19/18 11:45 10/26/18 11:44 10/19/18 13:21 Carvedilol (Coreg) 12.5 mg EVERY 12 HOURS ORAL 10/17/18 21:00 11/11/18 20:59 10/19/18 09:09 Docusate Sodium (Colace) 100 mg THREE TIMES A DAY ORAL 10/05/18 13:00 11/04/18 12:59 10/18/18 17:19 Epoetin David (Procrit (for ESRD on dialysis)) 10,000 units THU-THU-THU SUBQ 10/08/18 21:00 11/07/18 20:59 10/18/18 21:23 Fluoxetine HCl (PROzac) 20 mg DAILY ORAL 10/13/18 09:00 11/12/18 08:59 10/19/18 09:09 Folic Acid (Folate) 3 mg DAILY ORAL 10/05/18 11:04 11/04/18 11:03 10/19/18 09:09 Heparin Sodium (Porcine) (Heparin 5000 units/ml) 5,000 units EVERY 12 HOURS SUBQ 10/05/18 09:00 11/04/18 08:59 10/17/18 20:43 Levothyroxine Sodium (Synthroid) 25 mcg DAILY@0630 ORAL 10/06/18 06:30 11/05/18 06:29 10/19/18 05:43 Lisinopril (Zestril) 5 mg DAILY ORAL 10/08/18 10:47 11/07/18 10:46 10/19/18 09:09 Olanzapine (ZyPREXA) 10 mg BEDTIME ORAL 10/13/18 00:30 11/12/18 00:29 10/18/18 21:23 Ondansetron HCl (Zofran) 4 mg Q4HR PRN IVP Nausea & Vomiting 10/04/18 23:30 11/03/18 23:29 Pantoprazole (Protonix) 40 mg DAILY ORAL 10/05/18 11:02 11/04/18 11:01 10/19/18 09:09 Sevelamer Carbonate (Renvela) 1,600 mg THREE TIMES A DAY ORAL 10/06/18 18:00 11/04/18 12:59 10/19/18 13:20 Thiamine HCl (Vitamin B1) 100 mg DAILY ORAL 10/10/18 10:00 11/09/18 09:59 10/19/18 09:10 Vitamin B Complex/ Vit C/Folic Acid (Nephrovite) 1 tab DAILY ORAL 10/06/18 09:00 11/05/18 08:59 10/19/18 09:09 Miguel Kirby MD Oct 19, 2018 15:49
[2018-10-19 16:00] VITALS: BP 141/84
--- NOTE | 2018-10-19 17:22 | Nephrology Progress Note ---
Assessment/Plan Problem List: (1) Cardiomyopathy (2) ESRD on dialysis (3) Bacteremia (4) Homeless (5) Leukocytosis Assessment: strep bacteremia Assessment ESRD- Cardiomyopathy Anemia of CKD Hyperkalemia Leukocytosis, ? Line infection FTT (failure to thrive) in adult- malnutrition Homeless Plan IV iron- Kayexelate as needed Iron- stop IV Iron as ferritin is over 1500 Folate- po Dialysis as needed, done 10/18 next 10/21 Phos binders 2D echo Septal hypokinesis.mid to distal Inferior wall hypokinesis Left ventricular ejection fraction estimated to be 40%. blood cultures per orders Subjective ROS Limited/Unobtainable: No Constitutional: Reports: malaise Objective Objective Last 24 Hour Vital Signs Date Time Temp Pulse Resp B/P (MAP) Pulse Ox O2 Delivery O2 Flow Rate FiO2 10/19/18 16:00 98.1 70 20 141/84 (103) 99 10/19/18 11:59 97.7 74 19 138/81 (100) 98 10/19/18 09:09 72 134/78 10/19/18 09:09 134/78 10/19/18 09:00 Room Air 10/19/18 08:00 97.9 72 20 134/78 (96) 98 10/19/18 04:00 98.2 63 20 154/79 (104) 98 10/19/18 00:00 98.2 64 16 146/79 (101) 97 10/18/18 21:23 73 157/85 10/18/18 21:00 97.9 73 18 157/85 (109) 97 10/18/18 21:00 Room Air 10/18/18 17:49 98.4 Intake and Output 10/18/18 10/19/18 19:00 07:00 Intake Total 720 ml 600 ml Output Total 1000 ml 375 ml Balance -280 ml 225 ml Intake Oral 720 ml 600 ml Output Urine Total 1000 ml 375 ml # Bowel Movements 1 Height (Feet): 5 Height (Inches): 8.00 Weight (Pounds): 122 General Appearance: no apparent distress Cardiovascular: normal rate Respiratory/Chest: lungs clear Objective no change David Meyers MD Oct 19, 2018 17:22
[2018-10-19] MEDS: HYDROcodone/Acetamin 10/325 tab ORAL PRN ×2 (17:26→22:33)
[2018-10-19 20:00] VITALS: BP 155/88
--- NOTE | 2018-10-19 20:53 | General Progress Note ---
Assessment/Plan Assessment/Plan Assessment - Anemia, multifactorial - Hepatitis C - Patient declines EGD/Colon - ESRD / HD - malnutrition - poor skilled nursing prognosis Recommendations - EPO - PPI - follow labs - push po - no EGD/Colon , per patient wishes - can consider HCV eradication at later date Subjective Allergies: Coded Allergies: No Known Allergies (Unverified , 10/04/18) Subjective Feels same no abdominal symptoms appetite good Objective Last 24 Hour Vital Signs Date Time Temp Pulse Resp B/P (MAP) Pulse Ox O2 Delivery O2 Flow Rate FiO2 10/19/18 16:00 98.1 70 20 141/84 (103) 99 10/19/18 11:59 97.7 74 19 138/81 (100) 98 10/19/18 09:09 72 134/78 10/19/18 09:09 134/78 10/19/18 09:00 Room Air 10/19/18 08:00 97.9 72 20 134/78 (96) 98 10/19/18 04:00 98.2 63 20 154/79 (104) 98 10/19/18 00:00 98.2 64 16 146/79 (101) 97 10/18/18 21:23 73 157/85 10/18/18 21:00 97.9 73 18 157/85 (109) 97 10/18/18 21:00 Room Air Intake and Output 10/18/18 10/19/18 18:59 06:59 Intake Total 720 ml 600 ml Output Total 1000 ml 375 ml Balance -280 ml 225 ml Intake Oral 720 ml 600 ml Output Urine Total 1000 ml 375 ml # Bowel Movements 1 Height (Feet): 5 Height (Inches): 8.00 Weight (Pounds): 122 Objective Thin NAD NCAT supple CTA RR soft ND no edema, (+) skin redness on thighs Cara Berkowitz MD Oct 19, 2018 20:53
[2018-10-19] MEDS: OLANZapine 10mg tab ORAL SCH (21:11)
--- NOTE | 2018-10-19 21:59 | Pulmonology Progress Note ---
Assessment/Plan Assessment/Plan Pulmonary Progress Note: Assessment/Plan Problem List: (1) Hepatitis C ICD Codes: B19.20 - Unspecified viral hepatitis C without hepatic coma SNOMED: 23696411 (2) Anemia ICD Codes: D64.9 - Anemia, unspecified SNOMED: 726712725 (3) Dialysis patient ICD Codes: Z99.2 - Dependence on renal dialysis SNOMED: 211916891 (4) FTT (failure to thrive) in adult ICD Codes: R62.7 - Adult failure to thrive SNOMED: 176514133 (5) Cellulitis ICD Codes: L03.90 - Cellulitis, unspecified SNOMED: 604483973 Qualifiers: Qualified Codes: L03.116 - Cellulitis of left lower limb (6) Leukocytosis ICD Codes: D72.829 - Elevated white blood cell count, unspecified SNOMED: 414790640, 878540912 (7) Homeless ICD Codes: Z59.0 - Homelessness SNOMED: 35824827, 345148863 (8) Missed dialysis SNOMED: 631489082 (9) CHF (congestive heart failure) ICD Codes: I50.9 - Heart failure, unspecified SNOMED: 15051737 (10) Bacteremia ICD Codes: R78.81 - Bacteremia SNOMED: 9807186 Assessment/Plan ASSESSMENT: The patient is a 62-year-old homeless male with a history of IV drug use; hepatitis C; hepatopathy; end-stage renal disease, on dialysis via tunneled cath; and noncompliance with missed dialysis, presenting with weakness, failure to thrive, and likely infection with leukocytosis and systemic inflammatory response syndrome/sepsis. No new complaints. PROBLEM LIST: 1. End-stage renal disease, status post missed dialysis via PermCath. 2. Anemia, acute on chronic, with evidence of iron deficiency. 3. Hepatitis C. 4. Left thigh wound, imaging at [facility] reviewed. No evidence of abscess. 5. IV drug use. 6. Homelessness. 7. Systemic inflammatory response syndrome/sepsis 8. Leukocytosis. 9. Hypothyroidism 10. GPC bacteremia, likely contaminant 11. CHF with systolic dysfunction TREATMENT PLAN: 1. No IV, Augmentin/Doxy per ID - pt declines many doses 2. F/U repeat Cx's 3. HD per renal 4. Surgery recs 5. wound care 6. Monitor hemoglobin and hematocrit, transfuse PRN Hb < 7, refuses EPO, F/U plasma cell labs 7. F/U GI and heme recs 8. F/U cardiology recs, medical management of CHF, ischemia eval at some point 9. Social work evaluation to assist with placement. D/W SW, working with insurance plan RE: SNF placement 10. Pain control/supportive care. 11. Continue Synthroid 12. Multivitamins, thiamine, and folate. 13. DVT prophylaxis, heparin subcutaneous. 14. Diabetic renal diet. 15. The patient is a Full Code. 16. Psych recs Subjective Allergies: Coded Allergies: No Known Allergies (Unverified , 10/04/18) Subjective AFVSS, stable on RA Post Production Assistant notes reviewed Declines endoscopy, declines removal of tunneled cath Declines multiple meds No F/C/CP/SOB/N/V/D Objective Last 24 Hour Vital Signs Noted Height (Feet): 5 Height (Inches): 8.00 Weight (Pounds): 117 General Appearance: no apparent distress, cachetic EENT: PERRL/EOMI Neck: non-tender, normal alignment, supple Cardiovascular: normal peripheral pulses, normal rate, regular rhythm Respiratory/Chest: chest wall non-tender, lungs clear, normal breath sounds Abdomen: normal bowel sounds, non tender, soft, no organomegaly, no mass Edema: no edema noted Arm (L), no edema noted Arm (R), no edema noted Leg (L), no edema noted Leg (R), no edema noted Pedal (L), no edema noted Pedal (R), no edema noted Generalized Subjective ROS Limited/Unobtainable: No Allergies: Coded Allergies: No Known Allergies (Unverified , 10/04/18) Objective Last 24 Hour Vital Signs Date Time Temp Pulse Resp B/P (MAP) Pulse Ox O2 Delivery O2 Flow Rate FiO2 10/19/18 21:11 73 155/88 10/19/18 16:00 98.1 70 20 141/84 (103) 99 10/19/18 11:59 97.7 74 19 138/81 (100) 98 10/19/18 09:09 72 134/78 18 09:09 134/78 10/19/18 09:00 Room Air 10/19/18 08:00 97.9 72 20 134/78 (96) 98 10/19/18 04:00 98.2 63 20 154/79 (104) 98 10/19/18 00:00 98.2 64 16 146/79 (101) 97 Intake and Output 10/18/18 10/19/18 18:59 06:59 Intake Total 720 ml 600 ml Output Total 1000 ml 375 ml Balance -280 ml 225 ml Intake Oral 720 ml 600 ml Output Urine Total 1000 ml 375 ml # Bowel Movements 1 Current Medications Medications (Trade) Dose Ordered Sig/Mary Kay Route PRN Reason Start Time Stop Time Status Last Admin Dose Admin Acetaminophen (Tylenol) 650 mg Q6H PRN ORAL Mild Pain/Temp > 100.5 10/04/18 23:30 11/03/18 23:29 Acetaminophen/ Hydrocodone Bitart ([place] 10/325) 1 tab Q4H PRN ORAL Severe Pain (Pain Scale 7-10) 10/19/18 17:15 10/26/18 17:14 10/19/18 17:26 Acetaminophen/ Hydrocodone Bitart ([place] 5/325) 1 tab Q4H PRN ORAL Moderate Pain (Pain Scale 4-6) 10/19/18 19:45 10/26/18 11:44 Carvedilol (Coreg) 12.5 mg EVERY 12 HOURS ORAL 10/17/18 21:00 11/11/18 20:59 10/19/18 21:11 Docusate Sodium (Colace) 100 mg THREE TIMES A DAY ORAL 10/05/18 13:00 11/04/18 12:59 10/18/18 17:19 Epoetin David (Procrit (for ESRD on dialysis)) 10,000 units THU-THU-THU SUBQ 10/08/18 21:00 11/07/18 20:59 10/18/18 21:23 Fluoxetine HCl (PROzac) 20 mg DAILY ORAL 10/13/18 09:00 11/12/18 08:59 10/19/18 09:09 Folic Acid (Folate) 3 mg DAILY ORAL 10/05/18 11:04 11/04/18 11:03 10/19/18 09:09 Heparin Sodium (Porcine) (Heparin 5000 units/ml) 5,000 units EVERY 12 HOURS SUBQ 10/05/18 09:00 11/04/18 08:59 10/17/18 20:43 Levothyroxine Sodium (Synthroid) 25 mcg DAILY@0630 ORAL 10/06/18 06:30 11/05/18 06:29 10/19/18 05:43 Lisinopril (Zestril) 5 mg DAILY ORAL 10/08/18 10:47 11/07/18 10:46 10/19/18 09:09 Olanzapine (ZyPREXA) 10 mg BEDTIME ORAL 10/13/18 00:30 11/12/18 00:29 10/19/18 21:11 Ondansetron HCl (Zofran) 4 mg Q4HR PRN IVP Nausea & Vomiting 10/04/18 23:30 11/03/18 23:29 Pantoprazole (Protonix) 40 mg DAILY ORAL 10/05/18 11:02 11/04/18 11:01 10/19/18 09:09 Sevelamer Carbonate (Renvela) 1,600 mg THREE TIMES A DAY ORAL 10/06/18 18:00 11/04/18 12:59 10/19/18 17:26 Thiamine HCl (Vitamin B1) 100 mg DAILY ORAL 10/10/18 10:00 11/09/18 09:59 10/19/18 09:10 Vitamin B Complex/ Vit C/Folic Acid (Nephrovite) 1 tab DAILY ORAL 10/06/18 09:00 11/05/18 08:59 10/19/18 09:09 Miguel Kirby MD Oct 19, 2018 21:59
--- NOTE | 2018-10-19 23:59 | General Progress Note ---
Assessment/Plan Problem List: (1) Schizophrenia ICD Codes: F20.9 - Schizophrenia, unspecified SNOMED: 51185435 Status: stable Assessment/Plan Zyprexa 10mg po qhs Remeron 15mg qhs provided ro/st Subjective Date patient seen: Oct 18, 2018 Neurologic/Psychiatric: Reports: anxiety, depressed, emotional problems Allergies: Coded Allergies: No Known Allergies (Unverified , 10/04/18) Subjective the pt c/o insomnia Objective Last 24 Hour Vital Signs Date Time Temp Pulse Resp B/P (MAP) Pulse Ox O2 Delivery O2 Flow Rate FiO2 10/19/18 21:11 73 155/88 10/19/18 21:00 Room Air 10/19/18 20:00 97.8 73 19 155/88 (110) 95 10/19/18 16:00 98.1 70 20 141/84 (103) 99 10/19/18 11:59 97.7 74 19 138/81 (100) 98 10/19/18 09:09 72 134/78 10/19/18 09:09 134/78 10/19/18 09:00 Room Air 10/19/18 08:00 97.9 72 20 134/78 (96) 98 10/19/18 04:00 98.2 63 20 154/79 (104) 98 10/19/18 00:00 98.2 64 16 146/79 (101) 97 Intake and Output 10/18/18 10/19/18 18:59 06:59 Intake Total 720 ml 600 ml Output Total 1000 ml 375 ml Balance -280 ml 225 ml Intake Oral 720 ml 600 ml Output Urine Total 1000 ml 375 ml # Bowel Movements 1 Height (Feet): 5 Height (Inches): 8.00 Weight (Pounds): 122 General Appearance: alert, moderate distress, cachetic Neurologic: oriented x 3, responsive, depressed affect Minal Nuñez MD Oct 19, 2018 23:59
--- NOTE | 2018-10-19 23:59 | General Progress Note ---
Assessment/Plan Problem List: (1) Schizophrenia ICD Codes: F20.9 - Schizophrenia, unspecified SNOMED: 66643097 Assessment/Plan Zyprexa 10mg po qhs Remeron 7.5mg qhs provided ro/st Subjective Date patient seen: Oct 19, 2018 Neurologic/Psychiatric: Reports: anxiety Allergies: Coded Allergies: No Known Allergies (Unverified , 10/04/18) Subjective the pt is c/o anxiety and insomnia Objective Last 24 Hour Vital Signs Date Time Temp Pulse Resp B/P (MAP) Pulse Ox O2 Delivery O2 Flow Rate FiO2 10/19/18 21:11 73 155/88 10/19/18 21:00 Room Air 10/19/18 20:00 97.8 73 19 155/88 (110) 95 10/19/18 16:00 98.1 70 20 141/84 (103) 99 10/19/18 11:59 97.7 74 19 138/81 (100) 98 10/19/18 09:09 72 134/78 10/19/18 09:09 134/78 10/19/18 09:00 Room Air 10/19/18 08:00 97.9 72 20 134/78 (96) 98 10/19/18 04:00 98.2 63 20 154/79 (104) 98 10/19/18 00:00 98.2 64 16 146/79 (101) 97 Intake and Output 10/18/18 10/19/18 18:59 06:59 Intake Total 720 ml 600 ml Output Total 1000 ml 375 ml Balance -280 ml 225 ml Intake Oral 720 ml 600 ml Output Urine Total 1000 ml 375 ml # Bowel Movements 1 Height (Feet): 5 Height (Inches): 8.00 Weight (Pounds): 122 General Appearance: alert, cachetic Neurologic: oriented x 3, responsive, depressed affect Minal Nuñez MD Oct 19, 2018 23:59
[2018-10-20] VITALS: BP 159/68
[2018-10-20 04:00] VITALS: BP 156/85
[2018-10-20] MEDS: Levothyroxine 25mcg tab ORAL SCH (05:51)
[2018-10-20] MEDS: HYDROcodone/Acetamin 10/325 tab ORAL PRN ×5 (05:51→22:55)
[2018-10-20 08:00] VITALS: BP 147/78
[2018-10-20] MEDS: Carvedilol 12.5mg tab ORAL SCH ×2 (08:59→20:51)
[2018-10-20] MEDS: Lisinopril 2.5mg tab ORAL SCH (08:59)
[2018-10-20] MEDS: Thiamine 100mg tab ORAL SCH (09:00)
[2018-10-20] MEDS: Docusate 100mg cap ORAL SCH ×3 (09:00→17:27)
[2018-10-20] MEDS: Nephrovite tab (Rena-Vite) ORAL SCH (09:00)
[2018-10-20] MEDS: Heparin 5000 units/ml inj SUBQ SCH ×2 (09:00→20:53)
[2018-10-20 12:00] VITALS: BP 152/91
--- NOTE | 2018-10-20 15:16 | General Progress Note ---
Assessment/Plan Problem List: (1) Schizophrenia ICD Codes: F20.9 - Schizophrenia, unspecified SNOMED: 92771108 Status: unchanged Assessment/Plan Zyprexa 10mg po qhs Remeron 15mg qhs provided ro/st Subjective Neurologic/Psychiatric: Reports: anxiety, depressed Allergies: Coded Allergies: No Known Allergies (Unverified , 10/04/18) Subjective the pt is c/o anxiety and insomnia stated that he is anxious. the pt was asking for a clipper Objective Last 24 Hour Vital Signs Date Time Temp Pulse Resp B/P (MAP) Pulse Ox O2 Delivery O2 Flow Rate FiO2 10/20/18 12:00 97.8 71 20 152/91 (111) 98 10/20/18 09:00 Room Air 10/20/18 08:59 70 147/78 10/20/18 08:59 147/78 10/20/18 08:00 97.6 70 19 147/78 (101) 98 10/20/18 04:00 97.6 66 18 156/85 (108) 97 10/20/18 00:00 98.3 94 18 159/68 (98) 99 10/19/18 21:11 73 155/88 10/19/18 21:00 Room Air 10/19/18 20:00 97.8 73 19 155/88 (110) 95 10/19/18 16:00 98.1 70 20 141/84 (103) 99 Intake and Output 10/19/18 10/20/18 19:00 07:00 Intake Total 600 ml Output Total 700 ml 700 ml Balance -100 ml -700 ml Intake Oral 600 ml Output Urine Total 700 ml 700 ml # Voids 6 # Bowel Movements 4 Height (Feet): 5 Height (Inches): 8.00 Weight (Pounds): 127 General Appearance: no apparent distress, alert, cachetic Neurologic: oriented x 3, responsive, depressed affect Minal Nuñez MD Oct 20, 2018 15:16
[2018-10-20 16:00] VITALS: BP 144/88
--- NOTE | 2018-10-20 16:22 | Nephrology Progress Note ---
Assessment/Plan Problem List: (1) Cardiomyopathy (2) ESRD on dialysis (3) Bacteremia (4) Homeless (5) Leukocytosis Assessment: strep bacteremia Assessment ESRD- Cardiomyopathy Anemia of CKD Hyperkalemia Leukocytosis, ? Line infection FTT (failure to thrive) in adult- malnutrition Homeless Plan IV iron- Kayexelate as needed Iron- stop IV Iron as ferritin is over 1500 Folate- po Dialysis as needed, done 10/18 next 10/21 Phos binders 2D echo Septal hypokinesis.mid to distal Inferior wall hypokinesis Left ventricular ejection fraction estimated to be 40%. blood cultures per orders Subjective ROS Limited/Unobtainable: No Objective Objective Last 24 Hour Vital Signs Date Time Temp Pulse Resp B/P (MAP) Pulse Ox O2 Delivery O2 Flow Rate FiO2 10/20/18 16:00 97.6 68 19 144/88 (106) 97 10/20/18 12:00 97.8 71 20 152/91 (111) 98 10/20/18 09:00 Room Air 10/20/18 08:59 70 147/78 10/20/18 08:59 147/78 10/20/18 08:00 97.6 70 19 147/78 (101) 98 10/20/18 04:00 97.6 66 18 156/85 (108) 97 10/20/18 00:00 98.3 94 18 159/68 (98) 99 10/19/18 21:11 73 155/88 10/19/18 21:00 Room Air 10/19/18 20:00 97.8 73 19 155/88 (110) 95 Intake and Output 10/19/18 10/20/18 19:00 07:00 Intake Total 600 ml Output Total 700 ml 700 ml Balance -100 ml -700 ml Intake Oral 600 ml Output Urine Total 700 ml 700 ml # Voids 6 # Bowel Movements 4 Height (Feet): 5 Height (Inches): 8.00 Weight (Pounds): 127 General Appearance: no apparent distress Objective no change David Meyers MD Oct 20, 2018 16:22
[2018-10-20 20:00] VITALS: BP 123/78
[2018-10-20] MEDS: OLANZapine 10mg tab ORAL SCH (20:51)
[2018-10-20] MEDS: Epogen (for ESRD on dialysis) SUBQ SCH (20:52)
--- NOTE | 2018-10-20 21:46 | General Progress Note ---
Assessment/Plan Assessment/Plan Assessment - Anemia, multifactorial - Hepatitis C - Patient declines EGD/Colon - ESRD / HD - malnutrition - poor jail prognosis Recommendations - EPO - PPI - follow labs - push po - no EGD/Colon , per patient wishes - can consider HCV eradication at later date Subjective Allergies: Coded Allergies: No Known Allergies (Unverified , 10/04/18) Subjective Feels same no abdominal symptoms appetite good Objective Last 24 Hour Vital Signs Date Time Temp Pulse Resp B/P (MAP) Pulse Ox O2 Delivery O2 Flow Rate FiO2 10/20/18 20:51 83 123/78 10/20/18 16:00 97.6 68 19 144/88 (106) 97 10/20/18 12:00 97.8 71 20 152/91 (111) 98 10/20/18 09:00 Room Air 10/20/18 08:59 70 147/78 10/20/18 08:59 147/78 10/20/18 08:00 97.6 70 19 147/78 (101) 98 10/20/18 04:00 97.6 66 18 156/85 (108) 97 10/20/18 00:00 98.3 94 18 159/68 (98) 99 Intake and Output 10/19/18 10/20/18 18:59 06:59 Intake Total 600 ml Output Total 700 ml 700 ml Balance -100 ml -700 ml Intake Oral 600 ml Output Urine Total 700 ml 700 ml # Voids 6 # Bowel Movements 4 Height (Feet): 5 Height (Inches): 8.00 Weight (Pounds): 127 Objective Thin NAD NCAT supple CTA RR soft ND no edema, (+) skin redness on thighs Cara Berkowitz MD Oct 20, 2018 21:46
--- NOTE | 2018-10-20 22:42 | General Surgery Progress Note ---
General Surgery-Progress Note Subjective Additional Comments doing well. no complaints. Objective Last 24 Hour Vital Signs Date Time Temp Pulse Resp B/P (MAP) Pulse Ox O2 Delivery O2 Flow Rate FiO2 10/20/18 20:51 83 123/78 10/20/18 16:00 97.6 68 19 144/88 (106) 97 10/20/18 12:00 97.8 71 20 152/91 (111) 98 10/20/18 09:00 Room Air 10/20/18 08:59 70 147/78 10/20/18 08:59 147/78 10/20/18 08:00 97.6 70 19 147/78 (101) 98 10/20/18 04:00 97.6 66 18 156/85 (108) 97 10/20/18 00:00 98.3 94 18 159/68 (98) 99 I&O Intake and Output 10/19/18 10/20/18 18:59 06:59 Intake Total 600 ml Output Total 700 ml 700 ml Balance -100 ml -700 ml Intake Oral 600 ml Output Urine Total 700 ml 700 ml # Voids 6 # Bowel Movements 4 Dressing: dry Wound: clean, other Drains: other Cardiovascular: RSR Respiratory: clear Abdomen: soft, flat, non-tender, present bowel sounds Extremities: other Plan Problems: (1) Cellulitis Assessment & Plan: Multiple wounds noted on bilateral lower extremities and arms. some self inflicted and some skin rash left lower extremity cellulitis from resolving prior I&D/infection no drainage noted mild erythema patient expressed tenderness prior to even being touched and asks for pain meds leukocytosis resolved. improving. on HD via right tunneled catheter left lateral lower extremity wounds dry and eschar falling off with exposed subcutaneous tissue that is dry on exam no abscess noted wounds as above patient non compliant with care of wounds as noted in history - was more compliant today wash wound daily with NS apply skin protectant / therahoney apply non adherent dressing / Xeroform followed by kevin su thank you will follow with Raymond Gomes Oct 20, 2018 22:42
--- NOTE | 2018-10-20 23:41 | Pulmonology Progress Note ---
Assessment/Plan Assessment/Plan Pulmonary Progress Note: Assessment/Plan Problem List: (1) Hepatitis C ICD Codes: B19.20 - Unspecified viral hepatitis C without hepatic coma SNOMED: 52197290 (2) Anemia ICD Codes: D64.9 - Anemia, unspecified SNOMED: 355383934 (3) Dialysis patient ICD Codes: Z99.2 - Dependence on renal dialysis SNOMED: 922124607 (4) FTT (failure to thrive) in adult ICD Codes: R62.7 - Adult failure to thrive SNOMED: 199292931 (5) Cellulitis ICD Codes: L03.90 - Cellulitis, unspecified SNOMED: 797651634 Qualifiers: Qualified Codes: L03.116 - Cellulitis of left lower limb (6) Leukocytosis ICD Codes: D72.829 - Elevated white blood cell count, unspecified SNOMED: 262716250, 303012901 (7) Homeless ICD Codes: Z59.0 - Homelessness SNOMED: 65923892, 303539451 (8) Missed dialysis SNOMED: 193248958 (9) CHF (congestive heart failure) ICD Codes: I50.9 - Heart failure, unspecified SNOMED: 34523933 (10) Bacteremia ICD Codes: R78.81 - Bacteremia SNOMED: 1222570 Assessment/Plan ASSESSMENT: The patient is a 62-year-old homeless male with a history of IV drug use; hepatitis C; hepatopathy; end-stage renal disease, on dialysis via tunneled cath; and noncompliance with missed dialysis, presenting with weakness, failure to thrive, and likely infection with leukocytosis and systemic inflammatory response syndrome/sepsis. No new complaints. PROBLEM LIST: 1. End-stage renal disease, status post missed dialysis via PermCath. 2. Anemia, acute on chronic, with evidence of iron deficiency. 3. Hepatitis C. 4. Left thigh wound, imaging at [facility] reviewed. No evidence of abscess. 5. IV drug use. 6. Homelessness. 7. Systemic inflammatory response syndrome/sepsis 8. Leukocytosis. 9. Hypothyroidism 10. GPC bacteremia, likely contaminant 11. CHF with systolic dysfunction TREATMENT PLAN: 1. No IV, Augmentin/Doxy per ID - pt declines many doses 2. F/U repeat Cx's 3. HD per renal 4. Surgery recs 5. wound care 6. Monitor hemoglobin and hematocrit, transfuse PRN Hb < 7, refuses EPO, F/U plasma cell labs 7. F/U GI and heme recs 8. F/U cardiology recs, medical management of CHF, ischemia eval at some point 9. Social work evaluation to assist with placement. D/W SW, working with insurance plan RE: SNF placement 10. Pain control/supportive care. 11. Continue Synthroid 12. Multivitamins, thiamine, and folate. 13. DVT prophylaxis, heparin subcutaneous. 14. Diabetic renal diet. 15. The patient is a Full Code. 16. 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 Declines endoscopy, declines removal of tunneled cath Declines multiple meds No F/C/CP/SOB/N/V/D Objective Last 24 Hour Vital Signs Noted Height (Feet): 5 Height (Inches): 8.00 Weight (Pounds): 117 General Appearance: no apparent distress, cachetic EENT: PERRL/EOMI Neck: non-tender, normal alignment, supple Cardiovascular: normal peripheral pulses, normal rate, regular rhythm Respiratory/Chest: chest wall non-tender, lungs clear, normal breath sounds Abdomen: normal bowel sounds, non tender, soft, no organomegaly, no mass Edema: no edema noted Arm (L), no edema noted Arm (R), no edema noted Leg (L), no edema noted Leg (R), no edema noted Pedal (L), no edema noted Pedal (R), no edema noted Generalized Subjective ROS Limited/Unobtainable: No Allergies: Coded Allergies: No Known Allergies (Unverified , 10/04/18) Objective Last 24 Hour Vital Signs Date Time Temp Pulse Resp B/P (MAP) Pulse Ox O2 Delivery O2 Flow Rate FiO2 10/20/18 20:51 83 123/78 10/20/18 20:00 97.5 83 20 123/78 (93) 94 10/20/18 16:00 97.6 68 19 144/88 (106) 97 10/20/18 12:00 97.8 71 20 152/91 (111) 98 10/20/18 09:00 Room Air 10/20/18 08:59 70 147/78 12/19/18 08:59 147/78 10/20/18 08:00 97.6 70 19 147/78 (101) 98 10/20/18 04:00 97.6 66 18 156/85 (108) 97 10/20/18 00:00 98.3 94 18 159/68 (98) 99 Intake and Output 10/19/18 10/20/18 18:59 06:59 Intake Total 600 ml Output Total 700 ml 700 ml Balance -100 ml -700 ml Intake Oral 600 ml Output Urine Total 700 ml 700 ml # Voids 6 # Bowel Movements 4 Current Medications Medications (Trade) Dose Ordered Sig/Mary Kay Route PRN Reason Start Time Stop Time Status Last Admin Dose Admin Acetaminophen (Tylenol) 650 mg Q6H PRN ORAL Mild Pain/Temp > 100.5 10/04/18 23:30 11/03/18 23:29 Acetaminophen/ Hydrocodone Bitart ([place] 10/325) 1 tab Q4H PRN ORAL Severe Pain (Pain Scale 7-10) 10/19/18 17:15 10/26/18 17:14 10/20/18 22:55 Acetaminophen/ Hydrocodone Bitart ([place] 5/325) 1 tab Q4H PRN ORAL Moderate Pain (Pain Scale 4-6) 10/19/18 19:45 10/26/18 11:44 Carvedilol (Coreg) 12.5 mg EVERY 12 HOURS ORAL 10/17/18 21:00 11/11/18 20:59 10/20/18 20:51 Docusate Sodium (Colace) 100 mg THREE TIMES A DAY ORAL 10/05/18 13:00 11/04/18 12:59 10/18/18 17:19 Epoetin David (Procrit (for ESRD on dialysis)) 10,000 units THU-THU-THU SUBQ 10/08/18 21:00 11/07/18 20:59 10/20/18 20:52 Fluoxetine HCl (PROzac) 20 mg DAILY ORAL 10/13/18 09:00 11/12/18 08:59 10/20/18 08:59 Folic Acid (Folate) 3 mg DAILY ORAL 10/05/18 11:04 11/04/18 11:03 10/20/18 08:59 Heparin Sodium (Porcine) (Heparin 5000 units/ml) 5,000 units EVERY 12 HOURS SUBQ 10/05/18 09:00 1/3/19 08:59 10/20/18 20:53 Levothyroxine Sodium (Synthroid) 25 mcg DAILY@0630 ORAL 10/06/18 06:30 11/05/18 06:29 10/20/18 05:51 Lisinopril (Zestril) 5 mg DAILY ORAL 10/08/18 10:47 11/07/18 10:46 10/20/18 08:59 Mirtazapine (Remeron) 15 mg BEDTIME ORAL 10/20/18 21:00 11/19/18 20:59 10/20/18 20:51 Olanzapine (ZyPREXA) 10 mg BEDTIME ORAL 10/13/18 00:30 11/12/18 00:29 10/20/18 20:51 Ondansetron HCl (Zofran) 4 mg Q4HR PRN IVP Nausea & Vomiting 10/04/18 23:30 11/03/18 23:29 Pantoprazole (Protonix) 40 mg DAILY ORAL 10/05/18 11:02 11/04/18 11:01 10/20/18 08:59 Sevelamer Carbonate (Renvela) 1,600 mg THREE TIMES A DAY ORAL 10/06/18 18:00 11/04/18 12:59 10/20/18 17:35 Thiamine HCl (Vitamin B1) 100 mg DAILY ORAL 10/10/18 10:00 11/09/18 09:59 10/20/18 09:00 Vitamin B Complex/ Vit C/Folic Acid (Nephrovite) 1 tab DAILY ORAL 10/06/18 09:00 11/05/18 08:59 10/20/18 09:00 Miguel Kirby MD Oct 20, 2018 23:41
[2018-10-21] VITALS: BP 144/84
[2018-10-21] MEDS: HYDROcodone/Acetamin 10/325 tab ORAL PRN ×5 (03:20→21:27)
[2018-10-21 04:00] VITALS: BP 157/94
[2018-10-21] MEDS: Levothyroxine 25mcg tab ORAL SCH (06:29)
[2018-10-21 08:00] VITALS: BP 163/96
[2018-10-21] MEDS: Carvedilol 12.5mg tab ORAL SCH ×2 (09:00→20:52)
[2018-10-21] MEDS: Docusate 100mg cap ORAL SCH ×3 (09:00→17:38)
[2018-10-21] MEDS: Lisinopril 2.5mg tab ORAL SCH (09:00)
[2018-10-21] MEDS: Thiamine 100mg tab ORAL SCH (09:00)
[2018-10-21] MEDS: Heparin 5000 units/ml inj SUBQ SCH ×2 (09:00→20:58)
[2018-10-21] MEDS: Nephrovite tab (Rena-Vite) ORAL SCH (09:00)
[2018-10-21 11:51] VITALS: BP 148/79
--- NOTE | 2018-10-21 13:17 | General Progress Note ---
Assessment/Plan Problem List: (1) Schizophrenia ICD Codes: F20.9 - Schizophrenia, unspecified SNOMED: 32239766 Status: stable Assessment/Plan Zyprexa 10mg po qhs Remeron 15mg qhs provided ro/st Subjective Neurologic/Psychiatric: Reports: anxiety, depressed, emotional problems Allergies: Coded Allergies: No Known Allergies (Unverified , 10/04/18) Subjective the pt is slightly better. insomnia is improved. Objective Last 24 Hour Vital Signs Date Time Temp Pulse Resp B/P (MAP) Pulse Ox O2 Delivery O2 Flow Rate FiO2 10/21/18 11:51 97.5 66 18 148/79 (102) 96 10/21/18 09:06 97.2 10/21/18 09:00 97 163/96 10/21/18 09:00 163/96 10/21/18 08:00 97.2 97 20 163/96 (118) 97 10/21/18 04:00 97.2 77 19 157/94 (115) 98 10/21/18 00:00 97.6 70 19 144/84 (104) 98 10/20/18 21:00 Room Air 10/20/18 20:51 83 123/78 10/20/18 20:00 97.5 83 20 123/78 (93) 94 10/20/18 16:00 97.6 68 19 144/88 (106) 97 Intake and Output 10/20/18 10/21/18 19:00 07:00 Intake Total 1260 ml 250 ml Output Total 600 ml Balance 1260 ml -350 ml Intake Oral 1260 ml 250 ml Output Urine Total 600 ml # Voids 6 # Bowel Movements 1 1 Height (Feet): 5 Height (Inches): 8.00 Weight (Pounds): 122 General Appearance: alert, moderate distress, cachetic Neurologic: oriented x 3, responsive, depressed affect Minal Nuñez MD Oct 21, 2018 13:16
--- NOTE | 2018-10-21 14:43 | Nephrology Progress Note ---
Assessment/Plan Problem List: (1) Cardiomyopathy (2) ESRD on dialysis (3) Bacteremia (4) Homeless (5) Leukocytosis Assessment: strep bacteremia Assessment ESRD- Cardiomyopathy Anemia of CKD Hyperkalemia Leukocytosis, ? Line infection FTT (failure to thrive) in adult- malnutrition Homeless Plan IV iron- Kayexelate as needed Iron- stop IV Iron as ferritin is over 1500 Folate- po Dialysis as needed, done 10/18 next 10/21 Phos binders 2D echo Septal hypokinesis.mid to distal Inferior wall hypokinesis Left ventricular ejection fraction estimated to be 40%. blood cultures per orders Subjective ROS Limited/Unobtainable: No Objective Objective Last 24 Hour Vital Signs Date Time Temp Pulse Resp B/P (MAP) Pulse Ox O2 Delivery O2 Flow Rate FiO2 10/21/18 13:22 97.5 10/21/18 11:51 97.5 66 18 148/79 (102) 96 10/21/18 09:00 97 163/96 10/21/18 09:00 163/96 10/21/18 08:00 97.2 97 20 163/96 (118) 97 10/21/18 04:00 97.2 77 19 157/94 (115) 98 10/21/18 00:00 97.6 70 19 144/84 (104) 98 10/20/18 21:00 Room Air 10/20/18 20:51 83 123/78 10/20/18 20:00 97.5 83 20 123/78 (93) 94 10/20/18 16:00 97.6 68 19 144/88 (106) 97 Intake and Output 10/20/18 10/21/18 19:00 07:00 Intake Total 1260 ml 250 ml Output Total 600 ml Balance 1260 ml -350 ml Intake Oral 1260 ml 250 ml Output Urine Total 600 ml # Voids 6 # Bowel Movements 1 1 Height (Feet): 5 Height (Inches): 8.00 Weight (Pounds): 122 General Appearance: no apparent distress Objective no change David Meyers MD Oct 21, 2018 14:43
[2018-10-21 16:00] VITALS: BP 151/81
--- NOTE | 2018-10-21 16:38 | Pulmonology Progress Note ---
Assessment/Plan Assessment/Plan Pulmonary Progress Note: Assessment/Plan Problem List: (1) Hepatitis C ICD Codes: B19.20 - Unspecified viral hepatitis C without hepatic coma SNOMED: 44577310 (2) Anemia ICD Codes: D64.9 - Anemia, unspecified SNOMED: 385431857 (3) Dialysis patient ICD Codes: Z99.2 - Dependence on renal dialysis SNOMED: 292235310 (4) FTT (failure to thrive) in adult ICD Codes: R62.7 - Adult failure to thrive SNOMED: 665541885 (5) Cellulitis ICD Codes: L03.90 - Cellulitis, unspecified SNOMED: 064671303 Qualifiers: Qualified Codes: L03.116 - Cellulitis of left lower limb (6) Leukocytosis ICD Codes: D72.829 - Elevated white blood cell count, unspecified SNOMED: 823119141, 891007761 (7) Homeless ICD Codes: Z59.0 - Homelessness SNOMED: 31013433, 604705367 (8) Missed dialysis SNOMED: 175903286 (9) CHF (congestive heart failure) ICD Codes: I50.9 - Heart failure, unspecified SNOMED: 84711233 (10) Bacteremia ICD Codes: R78.81 - Bacteremia SNOMED: 8533482 Assessment/Plan ASSESSMENT: The patient is a 62-year-old homeless male with a history of IV drug use; hepatitis C; hepatopathy; end-stage renal disease, on dialysis via tunneled cath; and noncompliance with missed dialysis, presenting with weakness, failure to thrive, and likely infection with leukocytosis and systemic inflammatory response syndrome/sepsis. No new complaints. PROBLEM LIST: 1. End-stage renal disease, status post missed dialysis via PermCath. 2. Anemia, acute on chronic, with evidence of iron deficiency. 3. Hepatitis C. 4. Left thigh wound, imaging at [facility] reviewed. No evidence of abscess. 5. IV drug use. 6. Homelessness. 7. Systemic inflammatory response syndrome/sepsis 8. Leukocytosis. 9. Hypothyroidism 10. GPC bacteremia, likely contaminant 11. CHF with systolic dysfunction TREATMENT PLAN: 1. No IV, Augmentin/Doxy per ID - pt declines many doses 2. F/U repeat Cx's 3. HD per renal 4. Surgery recs 5. wound care 6. Monitor hemoglobin and hematocrit, transfuse PRN Hb < 7, refuses EPO, F/U plasma cell labs 7. F/U GI and heme recs 8. F/U cardiology recs, medical management of CHF, ischemia eval at some point 9. Social work evaluation to assist with placement. D/W SW, working with insurance plan RE: SNF placement 10. Pain control/supportive care. 11. Continue Synthroid 12. Multivitamins, thiamine, and folate. 13. DVT prophylaxis, heparin subcutaneous. 14. Diabetic renal diet. 15. The patient is a Full Code. 16. 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 Declines endoscopy, declines removal of tunneled cath Declines multiple meds No F/C/CP/SOB/N/V/D Objective Last 24 Hour Vital Signs Noted Height (Feet): 5 Height (Inches): 8.00 Weight (Pounds): 117 General Appearance: no apparent distress, cachetic EENT: PERRL/EOMI Neck: non-tender, normal alignment, supple Cardiovascular: normal peripheral pulses, normal rate, regular rhythm Respiratory/Chest: chest wall non-tender, lungs clear, normal breath sounds Abdomen: normal bowel sounds, non tender, soft, no organomegaly, no mass Edema: no edema noted Arm (L), no edema noted Arm (R), no edema noted Leg (L), no edema noted Leg (R), no edema noted Pedal (L), no edema noted Pedal (R), no edema noted Generalized Subjective ROS Limited/Unobtainable: No Allergies: Coded Allergies: No Known Allergies (Unverified , 10/04/18) Objective Last 24 Hour Vital Signs Date Time Temp Pulse Resp B/P (MAP) Pulse Ox O2 Delivery O2 Flow Rate FiO2 10/21/18 13:22 97.5 10/21/18 11:51 97.5 66 18 148/79 (102) 96 10/21/18 09:00 97 163/96 10/21/18 09:00 163/96 10/21/18 08:00 97.2 97 20 163/96 (118) 97 10/21/18 04:00 97.2 77 19 157/94 (115) 98 10/21/18 00:00 97.6 70 19 144/84 (104) 98 10/20/18 21:00 Room Air 10/20/18 20:51 83 123/78 10/20/18 20:00 97.5 83 20 123/78 (93) 94 Intake and Output 10/20/18 10/21/18 19:00 07:00 Intake Total 1260 ml 250 ml Output Total 600 ml Balance 1260 ml -350 ml Intake Oral 1260 ml 250 ml Output Urine Total 600 ml # Voids 6 # Bowel Movements 1 1 Current Medications Medications (Trade) Dose Ordered Sig/Mary Kay Route PRN Reason Start Time Stop Time Status Last Admin Dose Admin Acetaminophen (Tylenol) 650 mg Q6H PRN ORAL Mild Pain/Temp > 100.5 10/04/18 23:30 11/03/18 23:29 Acetaminophen/ Hydrocodone Bitart ([place] 10/325) 1 tab Q4H PRN ORAL Severe Pain (Pain Scale 7-10) 10/19/18 17:15 10/26/18 17:14 10/21/18 12:52 Acetaminophen/ Hydrocodone Bitart ([place] 5/325) 1 tab Q4H PRN ORAL Moderate Pain (Pain Scale 4-6) 10/19/18 19:45 10/26/18 11:44 Carvedilol (Coreg) 12.5 mg EVERY 12 HOURS ORAL 10/17/18 21:00 11/11/18 20:59 10/20/18 20:51 Docusate Sodium (Colace) 100 mg THREE TIMES A DAY ORAL 10/05/18 13:00 11/04/18 12:59 10/21/18 12:51 Epoetin David (Procrit (for ESRD on dialysis)) 10,000 units THU-THU-THU SUBQ 10/08/18 21:00 11/07/18 20:59 10/20/18 20:52 Fluoxetine HCl (PROzac) 20 mg DAILY ORAL 10/13/18 09:00 11/12/18 08:59 10/20/18 08:59 Folic Acid (Folate) 3 mg DAILY ORAL 10/05/18 11:04 11/04/18 11:03 10/20/18 08:59 Heparin Sodium (Porcine) (Heparin 5000 units/ml) 5,000 units EVERY 12 HOURS SUBQ 10/05/18 09:00 11/04/18 08:59 10/20/18 20:53 Levothyroxine Sodium (Synthroid) 25 mcg DAILY@0630 ORAL 10/06/18 06:30 11/05/18 06:29 10/21/18 06:29 Lisinopril (Zestril) 5 mg DAILY ORAL 10/08/18 10:47 11/07/18 10:46 10/20/18 08:59 Mirtazapine (Remeron) 15 mg BEDTIME ORAL 10/20/18 21:00 11/19/18 20:59 10/20/18 20:51 Olanzapine (ZyPREXA) 10 mg BEDTIME ORAL 10/13/18 00:30 11/12/18 00:29 10/20/18 20:51 Ondansetron HCl (Zofran) 4 mg Q4HR PRN IVP Nausea & Vomiting 10/04/18 23:30 11/03/18 23:29 Pantoprazole (Protonix) 40 mg DAILY ORAL 10/05/18 11:02 11/04/18 11:01 10/20/18 08:59 Sevelamer Carbonate (Renvela) 1,600 mg THREE TIMES A DAY ORAL 10/06/18 18:00 11/04/18 12:59 10/21/18 12:51 Thiamine HCl (Vitamin B1) 100 mg DAILY ORAL 10/10/18 10:00 11/09/18 09:59 10/20/18 09:00 Vitamin B Complex/ Vit C/Folic Acid (Nephrovite) 1 tab DAILY ORAL 10/06/18 09:00 11/05/18 08:59 10/20/18 09:00 Miguel Kirby MD Oct 21, 2018 16:38
--- NOTE | 2018-10-21 17:55 | General Progress Note ---
Assessment/Plan Assessment/Plan Assessment - Anemia, multifactorial - Hepatitis C - Patient declines EGD/Colon - ESRD / HD - malnutrition - poor half-way prognosis Recommendations - EPO - PPI - follow labs - push po - no EGD/Colon , per patient wishes - can consider HCV eradication at later date - I will return next week to see pt Subjective Allergies: Coded Allergies: No Known Allergies (Unverified , 10/04/18) Subjective Feels same no abdominal symptoms appetite good Objective Last 24 Hour Vital Signs Date Time Temp Pulse Resp B/P (MAP) Pulse Ox O2 Delivery O2 Flow Rate FiO2 10/21/18 16:00 97.7 73 18 151/81 (104) 95 10/21/18 13:22 97.5 10/21/18 11:51 97.5 66 18 148/79 (102) 96 10/21/18 09:00 97 163/96 10/21/18 09:00 163/96 10/21/18 08:00 97.2 97 20 163/96 (118) 97 10/21/18 04:00 97.2 77 19 157/94 (115) 98 10/21/18 00:00 97.6 70 19 144/84 (104) 98 10/20/18 21:00 Room Air 10/20/18 20:51 83 123/78 10/20/18 20:00 97.5 83 20 123/78 (93) 94 Intake and Output 10/20/18 10/21/18 19:00 07:00 Intake Total 1260 ml 250 ml Output Total 600 ml Balance 1260 ml -350 ml Intake Oral 1260 ml 250 ml Output Urine Total 600 ml # Voids 6 # Bowel Movements 1 1 Height (Feet): 5 Height (Inches): 8.00 Weight (Pounds): 122 Objective Thin NAD NCAT supple CTA RR soft ND no edema, (+) skin redness on thighs Cara Berkowitz MD Oct 21, 2018 17:55
[2018-10-21 20:00] VITALS: BP 150/82
[2018-10-21] MEDS: OLANZapine 10mg tab ORAL SCH (20:52)
[2018-10-22] VITALS: BP 147/87
[2018-10-22 04:00] VITALS: BP 150/97
[2018-10-22] MEDS: HYDROcodone/Acetamin 10/325 tab ORAL PRN ×3 (04:12→22:02)
[2018-10-22] MEDS: Levothyroxine 25mcg tab ORAL SCH (05:45)
[2018-10-22 08:00] VITALS: BP 150/88
[2018-10-22] MEDS: Docusate 100mg cap ORAL SCH ×3 (09:00→17:31)
[2018-10-22] MEDS: Carvedilol 12.5mg tab ORAL SCH (09:00)
[2018-10-22] MEDS: Thiamine 100mg tab ORAL SCH (09:36)
[2018-10-22] MEDS: Nephrovite tab (Rena-Vite) ORAL SCH (09:36)
[2018-10-22] MEDS: Lisinopril 2.5mg tab ORAL SCH (09:38)
[2018-10-22] MEDS: Heparin 5000 units/ml inj SUBQ SCH ×2 (09:40→21:56)
[2018-10-22] MEDS: Norco 5mg/325mg tab ORAL PRN ×2 (09:42→14:00)
--- NOTE | 2018-10-22 11:46 | General Surgery Progress Note ---
General Surgery-Progress Note Subjective Additional Comments no acute events. comfortable. no n/v/f/c. wounds improved. is awaiting placement Objective Last 24 Hour Vital Signs Date Time Temp Pulse Resp B/P (MAP) Pulse Ox O2 Delivery O2 Flow Rate FiO2 10/22/18 09:38 150/88 10/22/18 09:00 107 150/88 10/22/18 08:00 97.7 103 21 150/88 (108) 95 10/22/18 04:00 97.5 93 18 150/97 (114) 98 10/22/18 00:00 97.5 70 18 147/87 (107) 97 10/21/18 21:00 Room Air 10/21/18 20:52 77 150/82 10/21/18 20:00 97.8 77 19 150/82 (104) 97 10/21/18 18:07 97.7 10/21/18 16:00 97.7 73 18 151/81 (104) 95 10/21/18 11:51 97.5 66 18 148/79 (102) 96 I&O Intake and Output 10/21/18 10/22/18 19:00 07:00 Intake Total 480 ml 650 ml Output Total 200 ml 500 ml Balance 280 ml 150 ml Intake Oral 480 ml 650 ml Output Urine Total 200 ml 500 ml Wound: clean, dry Drains: other Cardiovascular: RSR Respiratory: clear Abdomen: soft, flat, non-tender, present bowel sounds Extremities: other Plan Problems: (1) Cellulitis Assessment & Plan: Multiple wounds noted on bilateral lower extremities and arms. some self inflicted and some skin rash left lower extremity cellulitis from resolving prior I&D/infection no drainage noted mild erythema patient expressed tenderness prior to even being touched and asks for pain meds leukocytosis resolved. improving. on HD via right tunneled catheter left lateral lower extremity wounds dry and eschar falling off with exposed subcutaneous tissue that is dry on exam no abscess noted wounds as above patient non compliant with care of wounds as noted in history - was more compliant today wash wound daily with NS apply skin protectant / therahoney apply non adherent dressing / Xeroform followed by kevin su thank you will follow with Raymond Gomes Oct 22, 2018 11:46
[2018-10-22 12:00] VITALS: BP 153/92
--- NOTE | 2018-10-22 13:46 | Nephrology Progress Note ---
Assessment/Plan Problem List: (1) Cardiomyopathy (2) ESRD on dialysis (3) Bacteremia (4) Homeless (5) Leukocytosis Assessment: strep bacteremia Assessment ESRD- Cardiomyopathy Anemia of CKD Hyperkalemia Leukocytosis, ? Line infection FTT (failure to thrive) in adult- malnutrition Homeless Plan up dose coreg IV iron- Kayexelate as needed Iron- stop IV Iron as ferritin is over 1500 Folate- po Dialysis as needed, done 10/21 10/23 Phos binders 2D echo Septal hypokinesis.mid to distal Inferior wall hypokinesis Left ventricular ejection fraction estimated to be 40%. blood cultures per orders Subjective ROS Limited/Unobtainable: No Constitutional: Reports: malaise Objective Objective Last 24 Hour Vital Signs Date Time Temp Pulse Resp B/P (MAP) Pulse Ox O2 Delivery O2 Flow Rate FiO2 10/22/18 12:00 98.0 72 18 153/92 (112) 98 10/22/18 09:38 150/88 10/22/18 09:00 107 150/88 10/22/18 09:00 Room Air 10/22/18 08:00 97.7 103 21 150/88 (108) 95 10/22/18 04:00 97.5 93 18 150/97 (114) 98 10/22/18 00:00 97.5 70 18 147/87 (107) 97 10/21/18 21:00 Room Air 10/21/18 20:52 77 150/82 10/21/18 20:00 97.8 77 19 150/82 (104) 97 10/21/18 18:07 97.7 10/21/18 16:00 97.7 73 18 151/81 (104) 95 Intake and Output 10/21/18 10/22/18 19:00 07:00 Intake Total 480 ml 650 ml Output Total 200 ml 500 ml Balance 280 ml 150 ml Intake Oral 480 ml 650 ml Output Urine Total 200 ml 500 ml Height (Feet): 5 Height (Inches): 8.00 Weight (Pounds): 124 General Appearance: no apparent distress Objective no change David Meyers MD Oct 22, 2018 13:46
--- NOTE | 2018-10-22 13:52 | Pulmonology Progress Note ---
Assessment/Plan Assessment/Plan Pulmonary Progress Note: Assessment/Plan Problem List: (1) Hepatitis C ICD Codes: B19.20 - Unspecified viral hepatitis C without hepatic coma SNOMED: 28716498 (2) Anemia ICD Codes: D64.9 - Anemia, unspecified SNOMED: 748690125 (3) Dialysis patient ICD Codes: Z99.2 - Dependence on renal dialysis SNOMED: 956903823 (4) FTT (failure to thrive) in adult ICD Codes: R62.7 - Adult failure to thrive SNOMED: 596690632 (5) Cellulitis ICD Codes: L03.90 - Cellulitis, unspecified SNOMED: 587238475 Qualifiers: Qualified Codes: L03.116 - Cellulitis of left lower limb (6) Leukocytosis ICD Codes: D72.829 - Elevated white blood cell count, unspecified SNOMED: 265097028, 773771580 (7) Homeless ICD Codes: Z59.0 - Homelessness SNOMED: 41409485, 445352593 (8) Missed dialysis SNOMED: 956584376 (9) CHF (congestive heart failure) ICD Codes: I50.9 - Heart failure, unspecified SNOMED: 40849170 (10) Bacteremia ICD Codes: R78.81 - Bacteremia SNOMED: 7063671 Assessment/Plan ASSESSMENT: The patient is a 62-year-old homeless male with a history of IV drug use; hepatitis C; hepatopathy; end-stage renal disease, on dialysis via tunneled cath; and noncompliance with missed dialysis, presenting with weakness, failure to thrive, and likely infection with leukocytosis and systemic inflammatory response syndrome/sepsis. No new complaints. PROBLEM LIST: 1. End-stage renal disease, status post missed dialysis via PermCath. 2. Anemia, acute on chronic, with evidence of iron deficiency. 3. Hepatitis C. 4. Left thigh wound, imaging at [facility] reviewed. No evidence of abscess. 5. IV drug use. 6. Homelessness. 7. Systemic inflammatory response syndrome/sepsis 8. Leukocytosis. 9. Hypothyroidism 10. GPC bacteremia, likely contaminant 11. CHF with systolic dysfunction TREATMENT PLAN: 1. No IV, Augmentin/Doxy per ID - pt declines many doses 2. F/U repeat Cx's 3. HD per renal 4. Surgery recs 5. wound care 6. Monitor hemoglobin and hematocrit, transfuse PRN Hb < 7, refuses EPO, F/U plasma cell labs 7. F/U GI and heme recs 8. F/U cardiology recs, medical management of CHF, ischemia eval at some point 9. Social work evaluation to assist with placement. D/W SW, working with insurance plan RE: SNF placement 10. Pain control/supportive care. 11. Continue Synthroid 12. Multivitamins, thiamine, and folate. 13. DVT prophylaxis, heparin subcutaneous. 14. Diabetic renal diet. 15. The patient is a Full Code. 16. 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 reviewed Declines endoscopy, declines removal of tunneled cath Declines multiple meds No F/C/CP/SOB/N/V/D Objective Last 24 Hour Vital Signs Noted Height (Feet): 5 Height (Inches): 8.00 Weight (Pounds): 117 General Appearance: no apparent distress, cachetic EENT: PERRL/EOMI Neck: non-tender, normal alignment, supple Cardiovascular: normal peripheral pulses, normal rate, regular rhythm Respiratory/Chest: chest wall non-tender, lungs clear, normal breath sounds Abdomen: normal bowel sounds, non tender, soft, no organomegaly, no mass Edema: no edema noted Arm (L), no edema noted Arm (R), no edema noted Leg (L), no edema noted Leg (R), no edema noted Pedal (L), no edema noted Pedal (R), no edema noted Generalized Subjective ROS Limited/Unobtainable: No Allergies: Coded Allergies: No Known Allergies (Unverified , 10/04/18) Objective Last 24 Hour Vital Signs Date Time Temp Pulse Resp B/P (MAP) Pulse Ox O2 Delivery O2 Flow Rate FiO2 10/22/18 12:00 98.0 72 18 153/92 (112) 98 10/22/18 09:38 150/88 10/22/18 09:00 107 150/88 10/22/18 09:00 Room Air 10/22/18 08:00 97.7 103 21 150/88 (108) 95 10/22/18 04:00 97.5 93 18 150/97 (114) 98 10/22/18 00:00 97.5 70 18 147/87 (107) 97 10/21/18 21:00 Room Air 10/21/18 20:52 77 150/82 10/21/18 20:00 97.8 77 19 150/82 (104) 97 18 18:07 97.7 10/21/18 16:00 97.7 73 18 151/81 (104) 95 Intake and Output 10/21/18 10/22/18 19:00 07:00 Intake Total 480 ml 650 ml Output Total 200 ml 500 ml Balance 280 ml 150 ml Intake Oral 480 ml 650 ml Output Urine Total 200 ml 500 ml Current Medications Medications (Trade) Dose Ordered Sig/Mary [place] Route PRN Reason Start Time Stop Time Status Last Admin Dose Admin Acetaminophen (Tylenol) 650 mg Q6H PRN ORAL Mild Pain/Temp > 100.5 10/04/18 23:30 11/03/18 23:29 Acetaminophen/ Hydrocodone Bitart ([place] 10/325) 1 tab Q4H PRN ORAL Severe Pain (Pain Scale 7-10) 10/19/18 17:15 10/26/18 17:14 10/22/18 04:12 Acetaminophen/ Hydrocodone Bitart ([place] 5/325) 1 tab Q4H PRN ORAL Moderate Pain (Pain Scale 4-6) 10/19/18 19:45 10/26/18 11:44 10/22/18 09:42 Carvedilol (Coreg) 25 mg EVERY 12 HOURS ORAL 10/22/18 21:00 11/11/18 20:59 Docusate Sodium (Colace) 100 mg THREE TIMES A DAY ORAL 10/05/18 13:00 11/04/18 12:59 10/21/18 12:51 Epoetin David (Procrit (for ESRD on dialysis)) 10,000 units THU-THU-THU SUBQ 10/08/18 21:00 11/07/18 20:59 10/20/18 20:52 Fluoxetine HCl (PROzac) 20 mg DAILY ORAL 10/13/18 09:00 11/12/18 08:59 10/22/18 09:36 Folic Acid (Folate) 3 mg DAILY ORAL 10/05/18 11:04 11/04/18 11:03 10/22/18 09:36 Heparin Sodium (Porcine) (Heparin 5000 units/ml) 5,000 units EVERY 12 HOURS SUBQ 10/05/18 09:00 11/04/18 08:59 10/22/18 09:40 Levothyroxine Sodium (Synthroid) 25 mcg DAILY@0630 ORAL 10/06/18 06:30 11/05/18 06:29 10/22/18 05:45 Lisinopril (Zestril) 5 mg DAILY ORAL 10/08/18 10:47 11/07/18 10:46 10/22/18 09:38 Mirtazapine (Remeron) 15 mg BEDTIME ORAL 10/20/18 21:00 11/19/18 20:59 10/21/18 20:52 Olanzapine (ZyPREXA) 10 mg BEDTIME ORAL 10/13/18 00:30 11/12/18 00:29 10/21/18 20:52 Ondansetron HCl (Zofran) 4 mg Q4HR PRN IVP Nausea & Vomiting 10/04/18 23:30 11/03/18 23:29 Pantoprazole (Protonix) 40 mg DAILY ORAL 10/05/18 11:02 11/04/18 11:01 10/22/18 09:38 Sevelamer Carbonate (Renvela) 1,600 mg THREE TIMES A DAY ORAL 10/06/18 18:00 11/04/18 12:59 10/22/18 09:37 Thiamine HCl (Vitamin B1) 100 mg DAILY ORAL 10/10/18 10:00 11/09/18 09:59 10/22/18 09:36 Vitamin B Complex/ Vit C/Folic Acid (Nephrovite) 1 tab DAILY ORAL 10/06/18 09:00 11/05/18 08:59 10/22/18 09:36 Miguel Kirby MD Oct 22, 2018 13:52
[2018-10-22 16:00] VITALS: BP 154/92
[2018-10-22 20:00] VITALS: BP 155/91
[2018-10-22] MEDS: Epogen (for ESRD on dialysis) SUBQ SCH (21:55)
[2018-10-22] MEDS: OLANZapine 10mg tab ORAL SCH (21:56)
[2018-10-22] MEDS: Carvedilol 25mg Tab ORAL SCH (21:57)
[2018-10-23] VITALS: BP 143/89
--- NOTE | 2018-10-23 01:13 | General Progress Note ---
Assessment/Plan Problem List: (1) Schizophrenia ICD Codes: F20.9 - Schizophrenia, unspecified SNOMED: 88814168 Status: stable Assessment/Plan Zyprexa 20mg po qhs Remeron 15mg qhs provided ro/st Subjective Neurologic/Psychiatric: Reports: anxiety, depressed, emotional problems Allergies: Coded Allergies: No Known Allergies (Unverified , 10/04/18) Subjective the pt co hearing voices Objective Last 24 Hour Vital Signs Date Time Temp Pulse Resp B/P (MAP) Pulse Ox O2 Delivery O2 Flow Rate FiO2 10/23/18 00:00 97.4 65 19 143/89 (107) 97 10/22/18 21:57 72 155/91 10/22/18 21:00 Room Air 10/22/18 20:00 98.6 72 19 155/91 (112) 97 10/22/18 16:00 97.9 77 18 154/92 (112) 97 10/22/18 12:00 98.0 72 18 153/92 (112) 98 10/22/18 09:38 150/88 10/22/18 09:00 107 150/88 10/22/18 09:00 Room Air 10/22/18 08:00 97.7 103 21 150/88 (108) 95 10/22/18 04:00 97.5 93 18 150/97 (114) 98 Intake and Output 10/22/18 10/23/18 19:00 07:00 Intake Total 850 ml Balance 850 ml Other 850 ml # Bowel Movements 6 Height (Feet): 5 Height (Inches): 8.00 Weight (Pounds): 124 General Appearance: alert, cachetic Neurologic: oriented x 3, responsive, depressed affect Minal Nuñez MD Oct 23, 2018 01:13
[2018-10-23 04:00] VITALS: BP 148/91
[2018-10-23] MEDS: HYDROcodone/Acetamin 10/325 tab ORAL PRN ×5 (05:23→23:03)
[2018-10-23] MEDS: Levothyroxine 25mcg tab ORAL SCH (06:03)
--- NOTE | 2018-10-23 07:42 | General Progress Note ---
Assessment/Plan Assessment/Plan Assessment - Anemia, multifactorial - Hepatitis C - Patient declines EGD/Colon - ESRD / HD - malnutrition - poor long-term prognosis Recommendations - EPO - PPI - follow labs - push po - no EGD/Colon , per patient wishes - can consider HCV eradication at later date Subjective ROS Limited/Unobtainable: Yes Allergies: Coded Allergies: No Known Allergies (Unverified , 10/04/18) Objective Last 24 Hour Vital Signs Date Time Temp Pulse Resp B/P (MAP) Pulse Ox O2 Delivery O2 Flow Rate FiO2 10/23/18 04:00 97.0 71 19 148/91 (110) 99 10/23/18 00:00 97.4 65 19 143/89 (107) 97 10/22/18 21:57 72 155/91 10/22/18 21:00 Room Air 10/22/18 20:00 98.6 72 19 155/91 (112) 97 10/22/18 16:00 97.9 77 18 154/92 (112) 97 10/22/18 12:00 98.0 72 18 153/92 (112) 98 10/22/18 09:38 150/88 10/22/18 09:00 107 150/88 10/22/18 09:00 Room Air 10/22/18 08:00 97.7 103 21 150/88 (108) 95 Intake and Output 10/22/18 10/23/18 18:59 06:59 Intake Total 1250 ml Output Total 2 ml Balance 1248 ml Intake Oral 400 ml Other 850 ml Output Urine Total 2 ml # Bowel Movements 6 Height (Feet): 5 Height (Inches): 8.00 Weight (Pounds): 124 General Appearance: no apparent distress EENT: normal ENT inspection Neck: supple Cardiovascular: normal rate Respiratory/Chest: decreased breath sounds Abdomen: normal bowel sounds, non tender, soft Extremities: non-tender Jonathan Dumont MD Oct 23, 2018 07:42
[2018-10-23 08:00] VITALS: BP 148/95
[2018-10-23] MEDS: Lisinopril 2.5mg tab ORAL SCH (09:00)
[2018-10-23] MEDS: Docusate 100mg cap ORAL SCH ×3 (09:00→17:37)
[2018-10-23] MEDS: Carvedilol 25mg Tab ORAL SCH ×2 (09:00→20:24)
[2018-10-23] MEDS: Thiamine 100mg tab ORAL SCH (09:08)
[2018-10-23] MEDS: Nephrovite tab (Rena-Vite) ORAL SCH (09:09)
[2018-10-23] MEDS: Heparin 5000 units/ml inj SUBQ SCH ×2 (09:11→20:25)
[2018-10-23 12:00] VITALS: BP 148/76
--- NOTE | 2018-10-23 14:20 | General Progress Note ---
Assessment/Plan Problem List: (1) Hepatitis C ICD Codes: B19.20 - Unspecified viral hepatitis C without hepatic coma SNOMED: 59823559 (2) Anemia ICD Codes: D64.9 - Anemia, unspecified SNOMED: 906838755 (3) Dialysis patient ICD Codes: Z99.2 - Dependence on renal dialysis SNOMED: 135216583 (4) FTT (failure to thrive) in adult ICD Codes: R62.7 - Adult failure to thrive SNOMED: 582391854 (5) Cellulitis ICD Codes: L03.90 - Cellulitis, unspecified SNOMED: 194126058 Qualifiers: Qualified Codes: L03.116 - Cellulitis of left lower limb (6) Leukocytosis ICD Codes: D72.829 - Elevated white blood cell count, unspecified SNOMED: 923620511, 391923083 (7) Homeless ICD Codes: Z59.0 - Homelessness SNOMED: 11396768, 615726202 (8) Missed dialysis SNOMED: 376226291 (9) CHF (congestive heart failure) ICD Codes: I50.9 - Heart failure, unspecified SNOMED: 10768678 (10) Bacteremia ICD Codes: R78.81 - Bacteremia SNOMED: 0485922 Assessment/Plan ASSESSMENT: The patient is a 62-year-old homeless male with a history of IV drug use; hepatitis C; hepatopathy; end-stage renal disease, on dialysis via tunneled cath; and noncompliance with missed dialysis, presenting with weakness, failure to thrive, and likely infection with leukocytosis and systemic inflammatory response syndrome/sepsis PROBLEM LIST: 1. End-stage renal disease, status post missed dialysis via PermCath. 2. Anemia, acute on chronic, with evidence of iron deficiency. 3. Hepatitis C. 4. Left thigh wound, imaging at [facility] reviewed. No evidence of abscess. 5. IV drug use. 6. Homelessness. 7. Systemic inflammatory response syndrome/sepsis 8. Leukocytosis. 9. Hypothyroidism 10. GPC bacteremia, likely contaminant 11. CHF with systolic dysfunction TREATMENT PLAN: 1. Off Abx 2. Repeat labs ordered 3. HD per renal 4. Surgery recs/wound care 5. BP management: Coreg, Lisin 5, add Norvasc 5 6. Monitor hemoglobin and hematocrit, transfuse PRN Hb < 7, EPO 7. F/U GI and heme recs 8. F/U cardiology recs, medical management of CHF, ischemia eval at some point 9. Social work working on placement 10. Pain control/supportive care. 11. Continue Synthroid 12. Multivitamins, thiamine, and folate. 13. DVT prophylaxis, heparin subcutaneous. 14. Diabetic renal diet. 15. The patient is a Full Code. 16. 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 reviewed No F/C/CP/SOB/N/V/D Objective Last 24 Hour Vital Signs Date Time Temp Pulse Resp B/P (MAP) Pulse Ox O2 Delivery O2 Flow Rate FiO2 10/23/18 12:00 96.3 69 19 148/76 (100) 99 10/23/18 10:41 97.2 10/23/18 10:30 Room Air 10/23/18 10:27 Room Air 10/23/18 09:00 Room Air 10/23/18 08:00 97.2 78 19 148/95 (112) 97 10/23/18 04:00 97.0 71 19 148/91 (110) 99 10/23/18 00:00 97.4 65 19 143/89 (107) 97 10/22/18 21:57 72 155/91 10/22/18 21:00 Room Air 10/22/18 20:00 98.6 72 19 155/91 (112) 97 10/22/18 16:00 97.9 77 18 154/92 (112) 97 Intake and Output 10/22/18 10/23/18 19:00 07:00 Intake Total 1250 ml Output Total 2 ml Balance 1248 ml Intake Oral 400 ml Other 850 ml Output Urine Total 2 ml # Bowel Movements 6 Height (Feet): 5 Height (Inches): 8.00 Weight (Pounds): 124 General Appearance: WD/WN, no apparent distress, alert EENT: PERRL/EOMI, normal ENT inspection Neck: non-tender, normal alignment, supple, normal inspection Cardiovascular: normal peripheral pulses, normal rate, regular rhythm Respiratory/Chest: chest wall non-tender, lungs clear, normal breath sounds, no respiratory distress, no accessory muscle use Abdomen: normal bowel sounds, non tender, soft, no organomegaly, no mass Edema: no edema noted Arm (L), no edema noted Arm (R), no edema noted Leg (L), no edema noted Leg (R), no edema noted Pedal (L), no edema noted Pedal (R), no edema noted Generalized Michael Coleman MD Oct 23, 2018 14:20
--- NOTE | 2018-10-23 14:33 | Nephrology Progress Note ---
Assessment/Plan Problem List: (1) Cardiomyopathy (2) ESRD on dialysis (3) Bacteremia (4) Homeless (5) Leukocytosis Assessment: strep bacteremia Assessment ESRD- Cardiomyopathy Anemia of CKD Hyperkalemia Leukocytosis, ? Line infection FTT (failure to thrive) in adult- malnutrition Homeless Plan up dose coreg IV iron- Kayexelate as needed Iron- stop IV Iron as ferritin is over 1500 Folate- po Dialysis as needed, due 10/23- currently on machine Phos binders 2D echo Septal hypokinesis.mid to distal Inferior wall hypokinesis Left ventricular ejection fraction estimated to be 40%. blood cultures per orders Subjective ROS Limited/Unobtainable: No Objective Objective Last 24 Hour Vital Signs Date Time Temp Pulse Resp B/P (MAP) Pulse Ox O2 Delivery O2 Flow Rate FiO2 10/23/18 12:00 96.3 69 19 148/76 (100) 99 10/23/18 10:41 97.2 10/23/18 10:30 Room Air 10/23/18 10:27 Room Air 10/23/18 09:00 Room Air 10/23/18 08:00 97.2 78 19 148/95 (112) 97 10/23/18 04:00 97.0 71 19 148/91 (110) 99 10/23/18 00:00 97.4 65 19 143/89 (107) 97 10/22/18 21:57 72 155/91 10/22/18 21:00 Room Air 10/22/18 20:00 98.6 72 19 155/91 (112) 97 10/22/18 16:00 97.9 77 18 154/92 (112) 97 Intake and Output 10/22/18 10/23/18 19:00 07:00 Intake Total 1250 ml Output Total 2 ml Balance 1248 ml Intake Oral 400 ml Other 850 ml Output Urine Total 2 ml # Bowel Movements 6 Height (Feet): 5 Height (Inches): 8.00 Weight (Pounds): 124 General Appearance: no apparent distress Objective no change David Meyers MD Oct 23, 2018 14:33
--- NOTE | 2018-10-23 15:01 | General Surgery Progress Note ---
General Surgery-Progress Note Subjective Additional Comments no acute events. doing well. improving. waiting placement Objective Last 24 Hour Vital Signs Date Time Temp Pulse Resp B/P (MAP) Pulse Ox O2 Delivery O2 Flow Rate FiO2 10/23/18 12:00 96.3 69 19 148/76 (100) 99 10/23/18 10:41 97.2 10/23/18 10:30 Room Air 10/23/18 10:27 Room Air 10/23/18 09:00 Room Air 10/23/18 08:00 97.2 78 19 148/95 (112) 97 10/23/18 04:00 97.0 71 19 148/91 (110) 99 10/23/18 00:00 97.4 65 19 143/89 (107) 97 10/22/18 21:57 72 155/91 10/22/18 21:00 Room Air 10/22/18 20:00 98.6 72 19 155/91 (112) 97 10/22/18 16:00 97.9 77 18 154/92 (112) 97 I&O Intake and Output 10/22/18 10/23/18 19:00 07:00 Intake Total 1250 ml Output Total 2 ml Balance 1248 ml Intake Oral 400 ml Other 850 ml Output Urine Total 2 ml # Bowel Movements 6 Dressing: dry Wound: clean, dry Drains: other Cardiovascular: RSR Respiratory: clear Abdomen: soft, flat, non-tender, present bowel sounds Extremities: other Plan Problems: (1) Cellulitis Assessment & Plan: Multiple wounds noted on bilateral lower extremities and arms. some self inflicted and some skin rash left lower extremity cellulitis from resolving prior I&D/infection no drainage noted mild erythema patient expressed tenderness prior to even being touched and asks for pain meds leukocytosis resolved. improving. on HD via right tunneled catheter left lateral lower extremity wounds dry and eschar falling off with exposed subcutaneous tissue that is dry on exam no abscess noted wounds as above patient non compliant with care of wounds as noted in history - was more compliant today wash wound daily with NS apply skin protectant / therahoney apply non adherent dressing / Xeroform followed by kevin su thank you will follow with Raymond Gomes Oct 23, 2018 15:01
[2018-10-23 15:20] LABS: BASOPHILS % (AUTO) 1.6 % (0.0-2.0); EOSINOPHILS % (AUTO) 3.2 % (0.0-3.0); HEMATOCRIT 26.7 % (42.0-52.0); HEMOGLOBIN 8.2 G/DL (14.2-18.0); LYMPHOCYTES % (AUTO) 25.7 % (20.0-45.0); MEAN CORPUSCULAR VOLUME 88 FL (80-99); MONOCYTES % (AUTO) 8.1 % (1.0-10.0); NEUTROPHILS % (AUTO) 61.5 % (45.0-75.0); PLATELET COUNT 185 K/UL (150-450); RED BLOOD COUNT 3.03 M/UL (4.70-6.10); RED CELL DISTRIBUTION WIDTH 18.9 % (11.6-14.8); WHITE BLOOD COUNT 8.2 K/UL (4.8-10.8)
--- NOTE | 2018-10-23 15:39 | General Progress Note ---
Assessment/Plan Status: stable Assessment/Plan #. Anemia of kidney disease/esrd -- anemia panel reviewed, has end-stage renal disease, status post missed dialysis via PermCath. --> transfuse on prn basis, if hgb <7 --> no evidence for hemolysis noted --> do not recommend iron at this time --> cont po folic acid and thiamine daily --> HD on permacath R arm --> getting epogen since hd and esrd, also vit b/folic acid --> hemoglobin electrophoresis is normal, no sickle cell trait noted --> hgb 7.7-->7.6-->7.8 #. Thrombocytopenia due to underlying Hepatitis C. has been chronic, unchanged --> Improved/Resolved --> afp 2.1, and trend plts as needed --> peripheral smear reviewed --> on abx as per ID --> ok for ppx if plt >50k w/ wither heparin --> Transfuse if Plt < 20k and fever, or if Plt < 10k without fever #. Leukocytosis likely due to infection. --> Improved/Resolved --> completed IV abx #. Left thigh wound, imaging at [facility] reviewed. No evidence of abscess. --> completed abx as per id --> skin protectant per surg #. IV drug use. #. Homelessness. #. Systemic inflammatory response syndrome. #. Hypothyroidism. #. Hep C -- outpatient eradication #. ESRD on hd 3x a week GREATLY APPRECIATE CONSULTATION. Subjective Date patient seen: Oct 23, 2018 Hematologic/Lymphatic: Reports: anemia Allergies: Coded Allergies: No Known Allergies (Unverified , 10/04/18) All Systems: reviewed and negative except above Subjective Pt awake and alert. No acute events. HD for today. H/H stable. Objective Last 24 Hour Vital Signs Date Time Temp Pulse Resp B/P (MAP) Pulse Ox O2 Delivery O2 Flow Rate FiO2 10/23/18 15:10 96.3 10/23/18 12:00 96.3 69 19 148/76 (100) 99 10/23/18 10:30 Room Air 10/23/18 10:27 Room Air 10/23/18 09:00 Room Air 10/23/18 08:00 97.2 78 19 148/95 (112) 97 12/22/18 04:00 97.0 71 19 148/91 (110) 99 10/23/18 00:00 97.4 65 19 143/89 (107) 97 10/22/18 21:57 72 155/91 10/22/18 21:00 Room Air 10/22/18 20:00 98.6 72 19 155/91 (112) 97 10/22/18 16:00 97.9 77 18 154/92 (112) 97 Intake and Output 10/22/18 10/23/18 19:00 07:00 Intake Total 1250 ml Output Total 2 ml Balance 1248 ml Intake Oral 400 ml Other 850 ml Output Urine Total 2 ml # Bowel Movements 6 Laboratory Tests 10/23/18 14:16: White Blood Count 8.2, Red Blood Count 3.03L, Hemoglobin 8.2L, Hematocrit 26.7L , Mean Corpuscular Volume 88, Mean Corpuscular Hemoglobin 27.1, Mean Corpuscular Hemoglobin Concent 30.8L, Red Cell Distribution Width 18.9H, Platelet Count 185, Mean Platelet Volume 7.0, Neutrophils (%) (Auto) 61.5, Lymphocytes (%) (Auto) 25.7, Monocytes (%) (Auto) 8.1, Eosinophils (%) (Auto) 3.2H, Basophils (%) (Auto) 1.6 10/23/18 14:40: Sodium Level [Pending], Potassium Level [Pending], Chloride Level [Pending], Carbon Dioxide Level [Pending], Blood Urea Nitrogen [Pending], Creatinine [ Pending], Estimat Glomerular Filtration Rate [Pending], Glucose Level [Pending] , Calcium Level [Pending] Height (Feet): 5 Height (Inches): 8.00 Weight (Pounds): 124 Objective PHYSICAL EXAMINATION: GENERAL: elderly cachectic-looking gentleman in no respiratory distress NECK: Supple. No jugular venous distention. LUNGS: Ctab, Less coughing CARDIAC: Regular rhythm. A holosystolic regurgitant murmur ++ ABDOMEN: Soft and not. ++ bowel sounds. EXTREMITIES: There is no clubbing, no cyanosis. There is no edema. Back: He has extensive ischemic changes in the skin in the inner thigh on both legs with eschar formation. Gordo Jang MD Oct 23, 2018 15:39
[2018-10-23 15:40] LABS: ANION GAP 10 mmol/L (5-15); BLOOD UREA NITROGEN 42 mg/dL (7-18); CALCIUM 7.9 MG/DL (8.5-10.1); CARBON DIOXIDE 28 MMOL/L (21-32); CHLORIDE 100 MMOL/L (98-107); CREATININE 3.9 MG/DL (0.55-1.30); POTASSIUM 4.6 MMOL/L (3.5-5.1); SODIUM 138 MMOL/L (136-145)
[2018-10-23 16:00] VITALS: BP 137/71
[2018-10-23 20:00] VITALS: BP 151/86
[2018-10-23] MEDS: OLANZapine 10mg tab ORAL SCH (20:24)
--- NOTE | 2018-10-23 21:49 | General Progress Note ---
Assessment/Plan Problem List: (1) Schizophrenia ICD Codes: F20.9 - Schizophrenia, unspecified SNOMED: 03980107 Status: stable, progressing Assessment/Plan Zyprexa 20mg po qhs Remeron 15mg qhs provided ro/st Subjective Neurologic/Psychiatric: Reports: anxiety, depressed, emotional problems Allergies: Coded Allergies: No Known Allergies (Unverified , 10/04/18) Subjective the pt co hearing voices Objective Last 24 Hour Vital Signs Date Time Temp Pulse Resp B/P (MAP) Pulse Ox O2 Delivery O2 Flow Rate FiO2 10/23/18 21:00 Room Air 10/23/18 20:24 79 151/86 10/23/18 20:00 98.1 79 19 151/86 (107) 94 10/23/18 19:14 98.1 10/23/18 16:00 98.1 74 19 137/71 (93) 96 10/23/18 12:00 96.3 69 19 148/76 (100) 99 10/23/18 10:30 Room Air 10/23/18 10:27 Room Air 10/23/18 09:00 Room Air 10/23/18 08:00 97.2 78 19 148/95 (112) 97 10/23/18 04:00 97.0 71 19 148/91 (110) 99 10/23/18 00:00 97.4 65 19 143/89 (107) 97 10/22/18 21:57 72 155/91 Intake and Output 10/22/18 10/23/18 19:00 07:00 Intake Total 1250 ml Output Total 2 ml Balance 1248 ml Intake Oral 400 ml Other 850 ml Output Urine Total 2 ml # Bowel Movements 6 Laboratory Tests 10/23/18 14:16: White Blood Count 8.2, Red Blood Count 3.03L, Hemoglobin 8.2L, Hematocrit 26.7L , Mean Corpuscular Volume 88, Mean Corpuscular Hemoglobin 27.1, Mean Corpuscular Hemoglobin Concent 30.8L, Red Cell Distribution Width 18.9H, Platelet Count 185, Mean Platelet Volume 7.0, Neutrophils (%) (Auto) 61.5, Lymphocytes (%) (Auto) 25.7, Monocytes (%) (Auto) 8.1, Eosinophils (%) (Auto) 3.2H, Basophils (%) (Auto) 1.6 10/23/18 14:40: Sodium Level 138, Potassium Level 4.6, Chloride Level 100, Carbon Dioxide Level 28, Anion Gap 10, Blood Urea Nitrogen 42H, Creatinine 3.9H, Estimat Glomerular Filtration Rate 15.7, Glucose Level 116H, Calcium Level 7.9L Height (Feet): 5 Height (Inches): 8.00 Weight (Pounds): 124 General Appearance: alert, cachetic Minal Nuñez MD Oct 23, 2018 21:49
[2018-10-24] MEDS: HYDROcodone/Acetamin 10/325 tab ORAL PRN ×5 (03:06→22:09)
[2018-10-24 04:00] VITALS: BP 144/88
[2018-10-24] MEDS: Levothyroxine 25mcg tab ORAL SCH (05:41)
--- NOTE | 2018-10-24 07:54 | General Progress Note ---
Assessment/Plan Assessment/Plan Assessment - Anemia, multifactorial - Hepatitis C - Patient declines EGD/Colon - ESRD / HD - malnutrition - poor retirement prognosis Recommendations - EPO - PPI - follow labs - push po - no EGD/Colon , per patient wishes - can consider HCV eradication at later date Subjective ROS Limited/Unobtainable: Yes Allergies: Coded Allergies: No Known Allergies (Unverified , 10/04/18) Subjective no event over night Objective Last 24 Hour Vital Signs Date Time Temp Pulse Resp B/P (MAP) Pulse Ox O2 Delivery O2 Flow Rate FiO2 10/24/18 04:00 97.5 72 18 144/88 (106) 97 10/23/18 21:00 Room Air 10/23/18 20:24 79 151/86 10/23/18 20:00 98.1 79 19 151/86 (107) 94 10/23/18 19:14 98.1 10/23/18 16:00 98.1 74 19 137/71 (93) 96 10/23/18 12:00 96.3 69 19 148/76 (100) 99 10/23/18 10:30 Room Air 10/23/18 10:27 Room Air 10/23/18 09:00 Room Air 10/23/18 08:00 97.2 78 19 148/95 (112) 97 Intake and Output 10/23/18 10/24/18 18:59 06:59 Intake Total 720 ml 480 ml Output Total 2000 ml 400 ml Balance -1280 ml 80 ml Intake Oral 720 ml 480 ml Output Urine Total 400 ml Hemodialysis UF 2000 ml # Bowel Movements 1 1 Laboratory Tests 10/23/18 14:16: White Blood Count 8.2, Red Blood Count 3.03L, Hemoglobin 8.2L, Hematocrit 26.7L , Mean Corpuscular Volume 88, Mean Corpuscular Hemoglobin 27.1, Mean Corpuscular Hemoglobin Concent 30.8L, Red Cell Distribution Width 18.9H, Platelet Count 185, Mean Platelet Volume 7.0, Neutrophils (%) (Auto) 61.5, Lymphocytes (%) (Auto) 25.7, Monocytes (%) (Auto) 8.1, Eosinophils (%) (Auto) 3.2H, Basophils (%) (Auto) 1.6 10/23/18 14:40: Sodium Level 138, Potassium Level 4.6, Chloride Level 100, Carbon Dioxide Level 28, Anion Gap 10, Blood Urea Nitrogen 42H, Creatinine 3.9H, Estimat Glomerular Filtration Rate 15.7, Glucose Level 116H, Calcium Level 7.9L Height (Feet): 5 Height (Inches): 8.00 Weight (Pounds): 125 General Appearance: alert EENT: normal ENT inspection Neck: supple Cardiovascular: normal rate Respiratory/Chest: decreased breath sounds Abdomen: normal bowel sounds, non tender, soft Extremities: non-tender Jonathan Dumont MD Oct 24, 2018 07:54
[2018-10-24 08:00] VITALS: BP 143/72
[2018-10-24] MEDS: Docusate 100mg cap ORAL SCH ×3 (09:00→17:12)
[2018-10-24] MEDS: Thiamine 100mg tab ORAL SCH (09:17)
[2018-10-24] MEDS: Nephrovite tab (Rena-Vite) ORAL SCH (09:17)
[2018-10-24] MEDS: Carvedilol 25mg Tab ORAL SCH ×2 (09:18→20:19)
[2018-10-24] MEDS: Lisinopril 2.5mg tab ORAL SCH (09:19)
[2018-10-24] MEDS: Heparin 5000 units/ml inj SUBQ SCH ×2 (09:20→20:24)
[2018-10-24 12:00] VITALS: BP 140/70
--- NOTE | 2018-10-24 14:34 | General Progress Note ---
Assessment/Plan Problem List: (1) Hepatitis C ICD Codes: B19.20 - Unspecified viral hepatitis C without hepatic coma SNOMED: 33782120 (2) Anemia ICD Codes: D64.9 - Anemia, unspecified SNOMED: 074502858 (3) Dialysis patient ICD Codes: Z99.2 - Dependence on renal dialysis SNOMED: 964142801 (4) FTT (failure to thrive) in adult ICD Codes: R62.7 - Adult failure to thrive SNOMED: 724768013 (5) Cellulitis ICD Codes: L03.90 - Cellulitis, unspecified SNOMED: 098067878 Qualifiers: Qualified Codes: L03.116 - Cellulitis of left lower limb (6) Leukocytosis ICD Codes: D72.829 - Elevated white blood cell count, unspecified SNOMED: 710805869, 272365961 (7) Homeless ICD Codes: Z59.0 - Homelessness SNOMED: 18373358, 232208744 (8) Missed dialysis SNOMED: 377087029 (9) CHF (congestive heart failure) ICD Codes: I50.9 - Heart failure, unspecified SNOMED: 72573918 (10) Bacteremia ICD Codes: R78.81 - Bacteremia SNOMED: 2481493 Assessment/Plan ASSESSMENT: The patient is a 62-year-old homeless male with a history of IV drug use; hepatitis C; hepatopathy; end-stage renal disease, on dialysis via tunneled cath; and noncompliance with missed dialysis, presenting with weakness, failure to thrive, and likely infection with leukocytosis and systemic inflammatory response syndrome/sepsis PROBLEM LIST: 1. End-stage renal disease, status post missed dialysis via PermCath. 2. Anemia, acute on chronic, with evidence of iron deficiency. 3. Hepatitis C. 4. Left thigh wound, imaging at [facility] reviewed. No evidence of abscess. 5. IV drug use. 6. Homelessness. 7. Systemic inflammatory response syndrome/sepsis 8. Leukocytosis. 9. Hypothyroidism 10. GPC bacteremia, likely contaminant 11. CHF with systolic dysfunction TREATMENT PLAN: 1. Off Abx 2. BIW labs 3. HD per renal 4. Surgery recs/wound care 5. BP management: Coreg, Lisin 5 & Norvasc 5 6. Monitor hemoglobin and hematocrit, transfuse PRN Hb < 7, EPO 7. F/U GI and heme recs 8. F/U cardiology recs, medical management of CHF, ischemia eval at some point 9. Social work working on placement 10. Pain control/supportive care. 11. Continue Synthroid 12. Multivitamins, thiamine, and folate. 13. DVT prophylaxis, heparin subcutaneous. 14. Diabetic renal diet. 15. The patient is a Full Code. 16. Psych recs Subjective Allergies: Coded Allergies: No Known Allergies (Unverified , 10/04/18) Subjective NITESH, BP better, AFVSS [employer] Inspector notes reviewed No F/C/CP/SOB/N/V/D Objective Last 24 Hour Vital Signs Date Time Temp Pulse Resp B/P (MAP) Pulse Ox O2 Delivery O2 Flow Rate FiO2 10/24/18 12:00 98.0 83 20 140/70 (93) 98 10/24/18 09:47 97.5 10/24/18 09:19 143/72 10/24/18 09:18 83 143/72 10/24/18 09:18 83 143/72 10/24/18 09:00 Room Air 10/24/18 08:00 97.5 83 19 143/72 (95) 98 10/24/18 04:00 97.5 72 18 144/88 (106) 97 10/23/18 21:00 Room Air 10/23/18 20:24 79 151/86 10/23/18 20:00 98.1 79 19 151/86 (107) 94 10/23/18 16:00 98.1 74 19 137/71 (93) 96 Intake and Output 10/23/18 10/24/18 19:00 07:00 Intake Total 720 ml 480 ml Output Total 2000 ml 400 ml Balance -1280 ml 80 ml Intake Oral 720 ml 480 ml Output Urine Total 400 ml Hemodialysis UF 2000 ml # Bowel Movements 1 1 Laboratory Tests 10/23/18 14:40: Sodium Level 138, Potassium Level 4.6, Chloride Level 100, Carbon Dioxide Level 28, Anion Gap 10, Blood Urea Nitrogen 42H, Creatinine 3.9H, Estimat Glomerular Filtration Rate 15.7, Glucose Level 116H, Calcium Level 7.9L Height (Feet): 5 Height (Inches): 8.00 Weight (Pounds): 125 General Appearance: no apparent distress, cachetic EENT: PERRL/EOMI, normal ENT inspection Neck: non-tender, normal alignment, supple Cardiovascular: normal peripheral pulses, normal rate, regular rhythm Respiratory/Chest: chest wall non-tender, lungs clear, normal breath sounds, no respiratory distress Abdomen: normal bowel sounds, non tender, soft, no organomegaly Edema: no edema noted Arm (L), no edema noted Arm (R), no edema noted Leg (L), no edema noted Leg (R), no edema noted Pedal (L), no edema noted Pedal (R), no edema noted Generalized Michael Coleman MD Oct 24, 2018 14:34
--- NOTE | 2018-10-24 14:59 | Nephrology Progress Note ---
Assessment/Plan Problem List: (1) Cardiomyopathy (2) ESRD on dialysis (3) Bacteremia (4) Homeless (5) Leukocytosis Assessment: strep bacteremia Assessment ESRD- Cardiomyopathy Anemia of CKD Hyperkalemia Leukocytosis, ? Line infection FTT (failure to thrive) in adult- malnutrition Homeless Plan up dose coreg IV iron- Kayexelate as needed Iron- stop IV Iron as ferritin is over 1500 Folate- po Dialysis as needed, due 10/23- next 10/25 Phos binders 2D echo Septal hypokinesis.mid to distal Inferior wall hypokinesis Left ventricular ejection fraction estimated to be 40%. blood cultures per orders Subjective ROS Limited/Unobtainable: No Objective Objective Last 24 Hour Vital Signs Date Time Temp Pulse Resp B/P (MAP) Pulse Ox O2 Delivery O2 Flow Rate FiO2 10/24/18 14:33 98.0 10/24/18 12:00 98.0 83 20 140/70 (93) 98 10/24/18 09:19 143/72 10/24/18 09:18 83 143/72 10/24/18 09:18 83 143/72 10/24/18 09:00 Room Air 10/24/18 08:00 97.5 83 19 143/72 (95) 98 10/24/18 04:00 97.5 72 18 144/88 (106) 97 10/23/18 21:00 Room Air 10/23/18 20:24 79 151/86 10/23/18 20:00 98.1 79 19 151/86 (107) 94 10/23/18 16:00 98.1 74 19 137/71 (93) 96 Intake and Output 10/23/18 10/24/18 19:00 07:00 Intake Total 720 ml 480 ml Output Total 2000 ml 400 ml Balance -1280 ml 80 ml Intake Oral 720 ml 480 ml Output Urine Total 400 ml Hemodialysis UF 2000 ml # Bowel Movements 1 1 Height (Feet): 5 Height (Inches): 8.00 Weight (Pounds): 125 General Appearance: no apparent distress Objective no change David Meyers MD Oct 24, 2018 14:59
[2018-10-24 16:00] VITALS: BP 132/79
[2018-10-24 20:00] VITALS: BP 138/82
[2018-10-24] MEDS: OLANZapine 10mg tab ORAL SCH (20:20)
--- NOTE | 2018-10-24 20:33 | General Progress Note ---
Assessment/Plan Assessment/Plan #. Anemia of kidney disease/esrd -- anemia panel reviewed, has end-stage renal disease, status post missed dialysis via PermCath. --> transfuse on prn basis, if hgb <7 --> no evidence for hemolysis noted --> do not recommend iron at this time --> cont po folic acid and thiamine daily --> HD on permacath R arm --> getting epogen since hd and esrd, also vit b/folic acid --> hemoglobin electrophoresis is normal, no sickle cell trait noted --> hgb 7.7-->7.6-->7.8-->8.2 #. Thrombocytopenia due to underlying Hepatitis C. has been chronic, unchanged --> Improved/Resolved --> afp 2.1, and trend plts as needed --> peripheral smear reviewed --> on abx as per ID --> ok for ppx if plt >50k w/ wither heparin --> Transfuse if Plt < 20k and fever, or if Plt < 10k without fever #. Leukocytosis likely due to infection. --> Improved/Resolved --> completed IV abx #. Left thigh wound, imaging at [facility] reviewed. No evidence of abscess. --> completed abx as per id --> skin protectant per surg #. IV drug use. #. Homelessness. #. Systemic inflammatory response syndrome. #. Hypothyroidism. #. Hep C -- outpatient eradication #. ESRD on hd 3x a week GREATLY APPRECIATE CONSULTATION. Subjective Constitutional: Denies: no symptoms, chills, diaphoresis, fever, malaise, weakness, other HEENT: Denies: no symptoms, eye pain, blurred vision, tearing, double vision, ear pain, ear discharge, nose pain, nose congestion, throat pain, throat swelling, mouth pain, mouth swelling, other Cardiovascular: Denies: no symptoms, chest pain, edema, irregular heart rate, lightheadedness, palpitations, syncope, other Respiratory: Denies: no symptoms, cough, orthopnea, shortness of breath, SOB with excertion, SOB at rest, sputum, stridor, wheezing, other Gastrointestinal/Abdominal: Denies: no symptoms, abdomen distended, abdominal pain, black stools, tarry stools, blood in stool, constipated, diarrhea, difficulty swallowing, nausea, poor appetite, poor fluid intake, rectal bleeding , vomiting, other Genitourinary: Denies: no symptoms, burning, discharge, frequency, flank pain, hematuria, incontinence, pain, urgency, other Neurologic/Psychiatric: Denies: no symptoms, anxiety, depressed, emotional problems, headache, numbness, paresthesia, pre-existing deficit, seizure, tingling, tremors, weakness, other Endocrine: Denies: no symptoms, excessive sweating, flushing, intolerance to cold, intolerance to heat, increased hunger, increased thirst, increased urine, unexplained weight gain, unexplained weight loss, other Hematologic/Lymphatic: Denies: no symptoms, anemia, easy bleeding, easy bruising, other Allergies: Coded Allergies: No Known Allergies (Unverified , 10/04/18) Subjective Pt awake and alert. No acute events. HD for today. H/H stable. Objective Last 24 Hour Vital Signs Date Time Temp Pulse Resp B/P (MAP) Pulse Ox O2 Delivery O2 Flow Rate FiO2 10/24/18 20:19 72 138/82 10/24/18 20:00 96.5 72 17 138/82 (100) 97 10/24/18 18:41 97.6 10/24/18 16:00 97.6 73 18 132/79 (96) 93 10/24/18 12:00 98.0 83 20 140/70 (93) 98 10/24/18 09:19 143/72 10/24/18 09:18 83 143/72 10/24/18 09:18 83 143/72 10/24/18 09:00 Room Air 10/24/18 08:00 97.5 83 19 143/72 (95) 98 10/24/18 04:00 97.5 72 18 144/88 (106) 97 10/23/18 21:00 Room Air Intake and Output 10/23/18 10/24/18 19:00 07:00 Intake Total 720 ml 480 ml Output Total 2000 ml 400 ml Balance -1280 ml 80 ml Intake Oral 720 ml 480 ml Output Urine Total 400 ml Hemodialysis UF 2000 ml # Bowel Movements 1 1 Height (Feet): 5 Height (Inches): 8.00 Weight (Pounds): 125 Objective PHYSICAL EXAMINATION: GENERAL: elderly cachectic-looking gentleman in no respiratory distress NECK: Supple. No jugular venous distention. LUNGS: Ctab, Less coughing CARDIAC: Regular rhythm. A holosystolic regurgitant murmur ++ ABDOMEN: Soft and not. ++ bowel sounds. EXTREMITIES: There is no clubbing, no cyanosis. There is no edema. Back: He has extensive ischemic changes in the skin in the inner thigh on both legs with eschar formation. Gordo Jang MD Oct 24, 2018 20:33
--- NOTE | 2018-10-24 22:36 | General Progress Note ---
Assessment/Plan Problem List: (1) Schizophrenia ICD Codes: F20.9 - Schizophrenia, unspecified SNOMED: 80604313 Assessment/Plan Zyprexa 20mg po qhs Remeron 15mg qhs provided ro/st Subjective Neurologic/Psychiatric: Reports: anxiety, depressed Allergies: Coded Allergies: No Known Allergies (Unverified , 10/04/18) All Systems: reviewed and negative except above Objective Last 24 Hour Vital Signs Date Time Temp Pulse Resp B/P (MAP) Pulse Ox O2 Delivery O2 Flow Rate FiO2 10/24/18 21:00 Room Air 10/24/18 20:19 72 138/82 10/24/18 20:00 96.5 72 17 138/82 (100) 97 10/24/18 18:41 97.6 10/24/18 16:00 97.6 73 18 132/79 (96) 93 10/24/18 12:00 98.0 83 20 140/70 (93) 98 10/24/18 09:19 143/72 10/24/18 09:18 83 143/72 10/24/18 09:18 83 143/72 10/24/18 09:00 Room Air 10/24/18 08:00 97.5 83 19 143/72 (95) 98 10/24/18 04:00 97.5 72 18 144/88 (106) 97 Intake and Output 10/23/18 10/24/18 19:00 07:00 Intake Total 720 ml 480 ml Output Total 2000 ml 400 ml Balance -1280 ml 80 ml Intake Oral 720 ml 480 ml Output Urine Total 400 ml Hemodialysis UF 2000 ml # Bowel Movements 1 1 Height (Feet): 5 Height (Inches): 8.00 Weight (Pounds): 125 General Appearance: alert, cachetic Neurologic: oriented x 3, responsive, depressed affect Minal Nuñez MD Oct 24, 2018 22:36
[2018-10-25] VITALS: BP 141/71
[2018-10-25] MEDS: HYDROcodone/Acetamin 10/325 tab ORAL PRN ×5 (02:43→22:40)
[2018-10-25 04:00] VITALS: BP 140/78
[2018-10-25] MEDS: Levothyroxine 25mcg tab ORAL SCH (05:35)
[2018-10-25 07:09] LABS: BASOPHILS % (AUTO) 1.4 % (0.0-2.0); EOSINOPHILS % (AUTO) 3.7 % (0.0-3.0); HEMATOCRIT 27.6 % (42.0-52.0); HEMOGLOBIN 8.6 G/DL (14.2-18.0); LYMPHOCYTES % (AUTO) 30.2 % (20.0-45.0); MEAN CORPUSCULAR VOLUME 89 FL (80-99); NEUTROPHILS % (AUTO) 56.6 % (45.0-75.0); PLATELET COUNT 186 K/UL (150-450); RED CELL DISTRIBUTION WIDTH 18.3 % (11.6-14.8); WHITE BLOOD COUNT 8.6 K/UL (4.8-10.8)
[2018-10-25 07:23] LABS: ANION GAP 11 mmol/L (5-15); BLOOD UREA NITROGEN 75 mg/dL (7-18); CARBON DIOXIDE 25 MMOL/L (21-32); CHLORIDE 98 MMOL/L (98-107); POTASSIUM 5.9 MMOL/L (3.5-5.1); SODIUM 134 MMOL/L (136-145)
[2018-10-25 08:00] VITALS: BP 147/82
[2018-10-25 08:07] LABS: ALANINE AMINOTRANSFERASE 33 U/L (12-78); ALBUMIN 1.9 G/DL (3.4-5.0); ALKALINE PHOSPHATASE 196 U/L (46-116); ASPARTATE AMINO TRANSFERASE 26 U/L (15-37); BILIRUBIN,DIRECT 0.1 MG/DL (0.0-0.3); BILIRUBIN,TOTAL 0.3 MG/DL (0.2-1.0); PHOSPHORUS 5.3 MG/DL (2.5-4.9)
[2018-10-25] MEDS: Nephrovite tab (Rena-Vite) ORAL SCH (08:46)
[2018-10-25] MEDS: Thiamine 100mg tab ORAL SCH (08:47)
[2018-10-25] MEDS: Norco 5mg/325mg tab ORAL PRN (08:47)
[2018-10-25] MEDS: Docusate 100mg cap ORAL SCH ×3 (08:47→17:24)
[2018-10-25] MEDS: Heparin 5000 units/ml inj SUBQ SCH ×2 (08:54→20:58)
[2018-10-25] MEDS: Carvedilol 25mg Tab ORAL SCH ×2 (09:00→20:57)
--- NOTE | 2018-10-25 10:36 | General Progress Note ---
Assessment/Plan Assessment/Plan Assessment - Anemia, multifactorial - Hepatitis C - Patient declines EGD/Colon - ESRD / HD - malnutrition - poor custodial prognosis Recommendations - EPO - PPI - follow labs - push po - no EGD/Colon , per patient wishes - can consider HCV eradication at later date Subjective ROS Limited/Unobtainable: Yes Allergies: Coded Allergies: No Known Allergies (Unverified , 10/04/18) Subjective no event over night eating well this morning pending HD Objective Last 24 Hour Vital Signs Date Time Temp Pulse Resp B/P (MAP) Pulse Ox O2 Delivery O2 Flow Rate FiO2 10/25/18 09:00 Room Air 10/25/18 08:00 97.7 76 18 147/82 (103) 97 10/25/18 04:00 97.8 65 18 140/78 (98) 97 10/25/18 00:00 97.0 64 17 141/71 (94) 97 10/24/18 21:00 Room Air 10/24/18 20:19 72 138/82 10/24/18 20:00 96.5 72 17 138/82 (100) 97 10/24/18 18:41 97.6 10/24/18 16:00 97.6 73 18 132/79 (96) 93 10/24/18 12:00 98.0 83 20 140/70 (93) 98 Intake and Output 10/24/18 10/25/18 18:59 06:59 Intake Total 1240 ml 720 ml Balance 1240 ml 720 ml Intake Oral 1240 ml 720 ml # Voids 5 3 # Bowel Movements 1 Laboratory Tests 10/25/18 05:30: White Blood Count 8.6, Red Blood Count 3.10L, Hemoglobin 8.6L, Hematocrit 27.6L , Mean Corpuscular Volume 89, Mean Corpuscular Hemoglobin 27.8, Mean Corpuscular Hemoglobin Concent 31.2L, Red Cell Distribution Width 18.3H, Platelet Count 186, Mean Platelet Volume 6.8, Neutrophils (%) (Auto) 56.6, Lymphocytes (%) (Auto) 30.2, Monocytes (%) (Auto) 8.0, Eosinophils (%) (Auto) 3.7H, Basophils (%) (Auto) 1.4, Sodium Level 134L, Potassium Level 5.9H, Chloride Level 98, Carbon Dioxide Level 25, Anion Gap 11, Blood Urea Nitrogen 75H, Creatinine 6.0H, Estimat Glomerular Filtration Rate 9.5, Glucose Level 90, Calcium Level 8.0L, Phosphorus Level 5.3H, Magnesium Level 1.7L, Total Bilirubin 0.3, Direct Bilirubin 0.1, Aspartate Amino Transf (AST/SGOT) 26, Alanine Aminotransferase (ALT/SGPT) 33, Alkaline Phosphatase 196H, Total Protein 6.5, Albumin 1.9L Height (Feet): 5 Height (Inches): 8.00 Weight (Pounds): 125 General Appearance: no apparent distress EENT: normal ENT inspection Neck: supple Cardiovascular: normal rate Respiratory/Chest: decreased breath sounds Abdomen: normal bowel sounds, non tender, soft Extremities: non-tender Jonathan Dumont MD Oct 25, 2018 10:36
--- NOTE | 2018-10-25 11:24 | Nephrology Progress Note ---
Assessment/Plan Problem List: (1) Cardiomyopathy (2) ESRD on dialysis (3) Bacteremia (4) Homeless (5) Leukocytosis Assessment: strep bacteremia Assessment ESRD- Cardiomyopathy Anemia of CKD Hyperkalemia Leukocytosis, ? Line infection FTT (failure to thrive) in adult- malnutrition Homeless Plan up dose coreg IV iron- Kayexelate as needed Iron- stop IV Iron as ferritin is over 1500 Folate- po Dialysis as needed, due 10/23- next 10/25 Phos binders 2D echo Septal hypokinesis.mid to distal Inferior wall hypokinesis Left ventricular ejection fraction estimated to be 40%. blood cultures per orders Subjective ROS Limited/Unobtainable: No Constitutional: Reports: malaise, weakness Objective Objective Last 24 Hour Vital Signs Date Time Temp Pulse Resp B/P (MAP) Pulse Ox O2 Delivery O2 Flow Rate FiO2 10/25/18 09:00 Room Air 10/25/18 08:00 97.7 76 18 147/82 (103) 97 10/25/18 04:00 97.8 65 18 140/78 (98) 97 10/25/18 00:00 97.0 64 17 141/71 (94) 97 10/24/18 21:00 Room Air 10/24/18 20:19 72 138/82 10/24/18 20:00 96.5 72 17 138/82 (100) 97 10/24/18 18:41 97.6 10/24/18 16:00 97.6 73 18 132/79 (96) 93 10/24/18 12:00 98.0 83 20 140/70 (93) 98 Intake and Output 10/24/18 10/25/18 18:59 06:59 Intake Total 1240 ml 720 ml Balance 1240 ml 720 ml Intake Oral 1240 ml 720 ml # Voids 5 3 # Bowel Movements 1 Laboratory Tests 10/25/18 05:30: White Blood Count 8.6, Red Blood Count 3.10L, Hemoglobin 8.6L, Hematocrit 27.6L , Mean Corpuscular Volume 89, Mean Corpuscular Hemoglobin 27.8, Mean Corpuscular Hemoglobin Concent 31.2L, Red Cell Distribution Width 18.3H, Platelet Count 186, Mean Platelet Volume 6.8, Neutrophils (%) (Auto) 56.6, Lymphocytes (%) (Auto) 30.2, Monocytes (%) (Auto) 8.0, Eosinophils (%) (Auto) 3.7H, Basophils (%) (Auto) 1.4, Sodium Level 134L, Potassium Level 5.9H, Chloride Level 98, Carbon Dioxide Level 25, Anion Gap 11, Blood Urea Nitrogen 75H, Creatinine 6.0H, Estimat Glomerular Filtration Rate 9.5, Glucose Level 90, Calcium Level 8.0L, Phosphorus Level 5.3H, Magnesium Level 1.7L, Total Bilirubin 0.3, Direct Bilirubin 0.1, Aspartate Amino Transf (AST/SGOT) 26, Alanine Aminotransferase (ALT/SGPT) 33, Alkaline Phosphatase 196H, Total Protein 6.5, Albumin 1.9L Height (Feet): 5 Height (Inches): 8.00 Weight (Pounds): 125 General Appearance: no apparent distress Objective no change David Meyers MD Oct 25, 2018 11:24
[2018-10-25 12:00] VITALS: BP 145/90
--- NOTE | 2018-10-25 14:23 | General Progress Note ---
Assessment/Plan Assessment/Plan #. Anemia of kidney disease/esrd -- anemia panel reviewed, has end-stage renal disease, status post missed dialysis via PermCath. --> transfuse on prn basis, if hgb <7 --> no evidence for hemolysis noted --> do not recommend iron at this time --> cont po folic acid and thiamine daily --> HD on permacath R arm --> getting epogen since hd and esrd, also vit b/folic acid --> hemoglobin electrophoresis is normal, no sickle cell trait noted --> no indication for iv iron --> hgb 7.7-->7.6-->7.8-->8.2 #. Thrombocytopenia due to underlying Hepatitis C. has been chronic, unchanged --> Improved/Resolved --> afp 2.1, and trend plts as needed --> peripheral smear reviewed --> on abx as per ID --> ok for ppx if plt >50k w/ wither heparin #. Leukocytosis likely due to infection. --> Improved/Resolved --> completed IV abx #. Left thigh wound, imaging at [facility] reviewed. No evidence of abscess. --> completed abx as per id --> skin protectant per surg #. IV drug use. #. Homelessness. #. Systemic inflammatory response syndrome. #. Hypothyroidism. #. Hep C -- outpatient eradication #. ESRD on hd 3x a week #. DVT ppx with heparin sq GREATLY APPRECIATE CONSULTATION. Subjective Constitutional: Denies: no symptoms, chills, diaphoresis, fever, malaise, weakness, other HEENT: Denies: no symptoms, eye pain, blurred vision, tearing, double vision, ear pain, ear discharge, nose pain, nose congestion, throat pain, throat swelling, mouth pain, mouth swelling, other Cardiovascular: Denies: no symptoms, chest pain, edema, irregular heart rate, lightheadedness, palpitations, syncope, other Respiratory: Denies: no symptoms, cough, orthopnea, shortness of breath, SOB with excertion, SOB at rest, sputum, stridor, wheezing, other Gastrointestinal/Abdominal: Denies: no symptoms, abdomen distended, abdominal pain, black stools, tarry stools, blood in stool, constipated, diarrhea, difficulty swallowing, nausea, poor appetite, poor fluid intake, rectal bleeding , vomiting, other Genitourinary: Denies: no symptoms, burning, discharge, frequency, flank pain, hematuria, incontinence, pain, urgency, other Neurologic/Psychiatric: Denies: no symptoms, anxiety, depressed, emotional problems, headache, numbness, paresthesia, pre-existing deficit, seizure, tingling, tremors, weakness, other Endocrine: Denies: no symptoms, excessive sweating, flushing, intolerance to cold, intolerance to heat, increased hunger, increased thirst, increased urine, unexplained weight gain, unexplained weight loss, other Hematologic/Lymphatic: Denies: no symptoms, anemia, easy bleeding, easy bruising, other Allergies: Coded Allergies: No Known Allergies (Unverified , 10/04/18) Subjective Pt awake and alert. No acute events. HD for today. H/H stable. 10/25: no further iv iron indicated Objective Last 24 Hour Vital Signs Date Time Temp Pulse Resp B/P (MAP) Pulse Ox O2 Delivery O2 Flow Rate FiO2 10/25/18 13:36 Room Air 10/25/18 12:00 98.4 84 18 145/90 (108) 99 10/25/18 09:00 76 147/82 10/25/18 09:00 Room Air 10/25/18 08:00 97.7 76 18 147/82 (103) 97 10/25/18 04:00 97.8 65 18 140/78 (98) 97 10/25/18 00:00 97.0 64 17 141/71 (94) 97 10/24/18 21:00 Room Air 10/24/18 20:19 72 138/82 10/24/18 20:00 96.5 72 17 138/82 (100) 97 10/24/18 18:41 97.6 10/24/18 16:00 97.6 73 18 132/79 (96) 93 Intake and Output 10/24/18 10/25/18 18:59 06:59 Intake Total 1240 ml 720 ml Balance 1240 ml 720 ml Intake Oral 1240 ml 720 ml # Voids 5 3 # Bowel Movements 1 Laboratory Tests 10/25/18 05:30: White Blood Count 8.6, Red Blood Count 3.10L, Hemoglobin 8.6L, Hematocrit 27.6L , Mean Corpuscular Volume 89, Mean Corpuscular Hemoglobin 27.8, Mean Corpuscular Hemoglobin Concent 31.2L, Red Cell Distribution Width 18.3H, Platelet Count 186, Mean Platelet Volume 6.8, Neutrophils (%) (Auto) 56.6, Lymphocytes (%) (Auto) 30.2, Monocytes (%) (Auto) 8.0, Eosinophils (%) (Auto) 3.7H, Basophils (%) (Auto) 1.4, Sodium Level 134L, Potassium Level 5.9H, Chloride Level 98, Carbon Dioxide Level 25, Anion Gap 11, Blood Urea Nitrogen 75H, Creatinine 6.0H, Estimat Glomerular Filtration Rate 9.5, Glucose Level 90, Calcium Level 8.0L, Phosphorus Level 5.3H, Magnesium Level 1.7L, Total Bilirubin 0.3, Direct Bilirubin 0.1, Aspartate Amino Transf (AST/SGOT) 26, Alanine Aminotransferase (ALT/SGPT) 33, Alkaline Phosphatase 196H, Total Protein 6.5, Albumin 1.9L Height (Feet): 5 Height (Inches): 8.00 Weight (Pounds): 125 Objective PHYSICAL EXAMINATION: GENERAL: elderly cachectic-looking gentleman in no respiratory distress NECK: Supple. No jugular venous distention. LUNGS: Ctab, Less coughing CARDIAC: Regular rhythm. holosystolic regurgitant murmur ++ ABDOMEN: Soft and not. ++ bowel sounds. EXTREMITIES: There is no clubbing, no cyanosis. There is no edema. Back: He has extensive ischemic changes in the skin in the inner thigh on both legs with eschar formation. Gordo Jang MD Oct 25, 2018 14:23
--- NOTE | 2018-10-25 14:29 | General Progress Note ---
Assessment/Plan Problem List: (1) Schizophrenia ICD Codes: F20.9 - Schizophrenia, unspecified SNOMED: 30937719 Status: stable Assessment/Plan Zyprexa 30mg po qhs Remeron 15mg qhs provided ro/st Subjective Neurologic/Psychiatric: Reports: anxiety, depressed Allergies: Coded Allergies: No Known Allergies (Unverified , 10/04/18) Subjective the pt is doing better he is depressed and stated that his sleep is better Objective Last 24 Hour Vital Signs Date Time Temp Pulse Resp B/P (MAP) Pulse Ox O2 Delivery O2 Flow Rate FiO2 10/25/18 13:36 Room Air 10/25/18 12:00 98.4 84 18 145/90 (108) 99 10/25/18 09:00 76 147/82 10/25/18 09:00 Room Air 10/25/18 08:00 97.7 76 18 147/82 (103) 97 10/25/18 04:00 97.8 65 18 140/78 (98) 97 10/25/18 00:00 97.0 64 17 141/71 (94) 97 10/24/18 21:00 Room Air 10/24/18 20:19 72 138/82 10/24/18 20:00 96.5 72 17 138/82 (100) 97 10/24/18 18:41 97.6 10/24/18 16:00 97.6 73 18 132/79 (96) 93 Intake and Output 10/24/18 10/25/18 18:59 06:59 Intake Total 1240 ml 720 ml Balance 1240 ml 720 ml Intake Oral 1240 ml 720 ml # Voids 5 3 # Bowel Movements 1 Laboratory Tests 10/25/18 05:30: White Blood Count 8.6, Red Blood Count 3.10L, Hemoglobin 8.6L, Hematocrit 27.6L , Mean Corpuscular Volume 89, Mean Corpuscular Hemoglobin 27.8, Mean Corpuscular Hemoglobin Concent 31.2L, Red Cell Distribution Width 18.3H, Platelet Count 186, Mean Platelet Volume 6.8, Neutrophils (%) (Auto) 56.6, Lymphocytes (%) (Auto) 30.2, Monocytes (%) (Auto) 8.0, Eosinophils (%) (Auto) 3.7H, Basophils (%) (Auto) 1.4, Sodium Level 134L, Potassium Level 5.9H, Chloride Level 98, Carbon Dioxide Level 25, Anion Gap 11, Blood Urea Nitrogen 75H, Creatinine 6.0H, Estimat Glomerular Filtration Rate 9.5, Glucose Level 90, Calcium Level 8.0L, Phosphorus Level 5.3H, Magnesium Level 1.7L, Total Bilirubin 0.3, Direct Bilirubin 0.1, Aspartate Amino Transf (AST/SGOT) 26, Alanine Aminotransferase (ALT/SGPT) 33, Alkaline Phosphatase 196H, Total Protein 6.5, Albumin 1.9L Height (Feet): 5 Height (Inches): 8.00 Weight (Pounds): 125 General Appearance: alert, cachetic Neurologic: oriented x 3, responsive, depressed affect Minal Nuñez MD Oct 25, 2018 14:29
--- NOTE | 2018-10-25 14:45 | Cardiology Report ---
APPROVED REPORT EKG Measurement Heart [id number] Normal sinus rhythm T wave abnormality, consider anterior ischemia Abnormal ECG
[2018-10-25 16:00] VITALS: BP 145/84
--- NOTE | 2018-10-25 16:21 | General Progress Note ---
Assessment/Plan Problem List: (1) Hepatitis C ICD Codes: B19.20 - Unspecified viral hepatitis C without hepatic coma SNOMED: 03264468 (2) Anemia ICD Codes: D64.9 - Anemia, unspecified SNOMED: 631318413 (3) Dialysis patient ICD Codes: Z99.2 - Dependence on renal dialysis SNOMED: 667293354 (4) FTT (failure to thrive) in adult ICD Codes: R62.7 - Adult failure to thrive SNOMED: 891024789 (5) Cellulitis ICD Codes: L03.90 - Cellulitis, unspecified SNOMED: 739401692 Qualifiers: Qualified Codes: L03.116 - Cellulitis of left lower limb (6) Leukocytosis ICD Codes: D72.829 - Elevated white blood cell count, unspecified SNOMED: 824488941, 104083463 (7) Homeless ICD Codes: Z59.0 - Homelessness SNOMED: 83567242, 122826863 (8) Missed dialysis SNOMED: 674551150 (9) CHF (congestive heart failure) ICD Codes: I50.9 - Heart failure, unspecified SNOMED: 63742769 (10) Bacteremia ICD Codes: R78.81 - Bacteremia SNOMED: 3585245 Status: stable Assessment/Plan ASSESSMENT: The patient is a 62-year-old homeless male with a history of IV drug use; hepatitis C; hepatopathy; end-stage renal disease, on dialysis via tunneled cath; and noncompliance with missed dialysis, presenting with weakness, failure to thrive, and likely infection with leukocytosis and systemic inflammatory response syndrome/sepsis PROBLEM LIST: 1. End-stage renal disease, status post missed dialysis via PermCath. 2. Anemia, acute on chronic, with evidence of iron deficiency. 3. Hepatitis C. 4. Left thigh wound, imaging at [facility] reviewed. No evidence of abscess. 5. IV drug use. 6. Homelessness. 7. Systemic inflammatory response syndrome/sepsis 8. Leukocytosis. 9. Hypothyroidism 10. GPC bacteremia, likely contaminant 11. CHF with systolic dysfunction TREATMENT PLAN: 1. Off Abx 2. BIW labs 3. HD per renal 4. Surgery recs/wound care 5. BP management: Coreg 25 BID, Inc Lisin to 10 & Norvasc 5 6. Monitor hemoglobin and hematocrit, transfuse PRN Hb < 7, EPO 7. F/U GI and heme recs 8. F/U cardiology recs, medical management of CHF, ischemia eval at some point 9. Social work working on placement 10. Pain control/supportive care. 11. Continue Synthroid 12. Multivitamins, thiamine, and folate. 13. DVT prophylaxis, heparin subcutaneous. 14. Diabetic renal diet. 15. The patient is a Full Code. 16. Psych recs Subjective Allergies: Coded Allergies: No Known Allergies (Unverified , 10/04/18) Subjective NITESH, BP still elevated, AFVSS [employer] notes reviewed No F/C/CP/SOB/N/V/D Objective Last 24 Hour Vital Signs Date Time Temp Pulse Resp B/P (MAP) Pulse Ox O2 Delivery O2 Flow Rate FiO2 10/25/18 13:36 Room Air 10/25/18 12:00 98.4 84 18 145/90 (108) 99 10/25/18 09:00 76 147/82 10/25/18 09:00 Room Air 10/25/18 08:00 97.7 76 18 147/82 (103) 97 10/25/18 04:00 97.8 65 18 140/78 (98) 97 10/25/18 00:00 97.0 64 17 141/71 (94) 97 10/24/18 21:00 Room Air 10/24/18 20:19 72 138/82 10/24/18 20:00 96.5 72 17 138/82 (100) 97 10/24/18 18:41 97.6 Intake and Output 10/24/18 10/25/18 18:59 06:59 Intake Total 1240 ml 720 ml Balance 1240 ml 720 ml Intake Oral 1240 ml 720 ml # Voids 5 3 # Bowel Movements 1 Laboratory Tests 10/25/18 05:30: White Blood Count 8.6, Red Blood Count 3.10L, Hemoglobin 8.6L, Hematocrit 27.6L , Mean Corpuscular Volume 89, Mean Corpuscular Hemoglobin 27.8, Mean Corpuscular Hemoglobin Concent 31.2L, Red Cell Distribution Width 18.3H, Platelet Count 186, Mean Platelet Volume 6.8, Neutrophils (%) (Auto) 56.6, Lymphocytes (%) (Auto) 30.2, Monocytes (%) (Auto) 8.0, Eosinophils (%) (Auto) 3.7H, Basophils (%) (Auto) 1.4, Sodium Level 134L, Potassium Level 5.9H, Chloride Level 98, Carbon Dioxide Level 25, Anion Gap 11, Blood Urea Nitrogen 75H, Creatinine 6.0H, Estimat Glomerular Filtration Rate 9.5, Glucose Level 90, Calcium Level 8.0L, Phosphorus Level 5.3H, Magnesium Level 1.7L, Total Bilirubin 0.3, Direct Bilirubin 0.1, Aspartate Amino Transf (AST/SGOT) 26, Alanine Aminotransferase (ALT/SGPT) 33, Alkaline Phosphatase 196H, Total Protein 6.5, Albumin 1.9L Height (Feet): 5 Height (Inches): 8.00 Weight (Pounds): 125 General Appearance: WD/WN, no apparent distress, alert EENT: PERRL/EOMI, normal ENT inspection, TMs normal Neck: non-tender, normal alignment, supple, normal inspection Cardiovascular: normal peripheral pulses, normal rate, regular rhythm Respiratory/Chest: chest wall non-tender, lungs clear, normal breath sounds, no respiratory distress, no accessory muscle use Abdomen: normal bowel sounds, non tender, soft, no organomegaly, no mass Edema: no edema noted Arm (L), no edema noted Arm (R), no edema noted Leg (L), no edema noted Leg (R), no edema noted Pedal (L), no edema noted Pedal (R), no edema noted Generalized Michael Coleman MD Oct 25, 2018 16:21
[2018-10-25 20:00] VITALS: BP 153/92
[2018-10-25] MEDS: Epogen (for ESRD on dialysis) SUBQ SCH (20:57)
[2018-10-25] MEDS: OLANZapine 10mg tab ORAL SCH (20:57)
[2018-10-26] VITALS: BP 138/73
[2018-10-26] MEDS: HYDROcodone/Acetamin 10/325 tab ORAL PRN ×5 (02:44→20:30)
[2018-10-26 04:00] VITALS: BP 136/81
[2018-10-26] MEDS: Levothyroxine 25mcg tab ORAL SCH (05:31)
[2018-10-26 08:00] VITALS: BP 141/93
[2018-10-26] MEDS: Thiamine 100mg tab ORAL SCH (08:30)
[2018-10-26] MEDS: Carvedilol 25mg Tab ORAL SCH ×2 (08:30→20:29)
[2018-10-26] MEDS: Nephrovite tab (Rena-Vite) ORAL SCH (08:31)
[2018-10-26] MEDS: Docusate 100mg cap ORAL SCH ×3 (08:31→17:00)
[2018-10-26] MEDS: Lisinopril 10mg tab ORAL SCH (08:31)
[2018-10-26] MEDS: Heparin 5000 units/ml inj SUBQ SCH ×2 (08:36→20:37)
--- NOTE | 2018-10-26 10:31 | General Progress Note ---
Assessment/Plan Assessment/Plan Assessment - Anemia, multifactorial - Hepatitis C - Patient declines EGD/Colon - ESRD / HD - malnutrition - poor care home prognosis Recommendations - EPO - PPI - follow labs - push po - no EGD/Colon , per patient wishes - can consider HCV eradication at later date Subjective ROS Limited/Unobtainable: Yes Allergies: Coded Allergies: No Known Allergies (Unverified , 10/04/18) Subjective no event over night eating well this morning pending HD Objective Last 24 Hour Vital Signs Date Time Temp Pulse Resp B/P (MAP) Pulse Ox O2 Delivery O2 Flow Rate FiO2 10/26/18 09:00 Room Air 10/26/18 08:31 141/93 10/26/18 08:31 76 141/93 10/26/18 08:30 76 141/93 10/26/18 08:00 98.0 76 18 141/93 (109) 96 10/26/18 04:00 97.2 86 20 136/81 (99) 99 10/26/18 00:00 98.0 83 20 138/73 (94) 99 10/25/18 21:00 Room Air 10/25/18 20:57 81 153/92 10/25/18 20:00 98.3 81 18 153/92 (112) 96 10/25/18 17:24 71 145/84 10/25/18 16:40 71 145/84 10/25/18 16:00 98.1 71 18 145/84 (104) 97 10/25/18 13:36 Room Air 10/25/18 12:00 98.4 84 18 145/90 (108) 99 Intake and Output 10/25/18 10/26/18 19:00 07:00 Output Total 3000 ml 450 ml Balance -3000 ml -450 ml Output Urine Total 450 ml Hemodialysis UF 3000 ml Height (Feet): 5 Height (Inches): 8.00 Weight (Pounds): 122 General Appearance: no apparent distress EENT: normal ENT inspection Neck: supple Cardiovascular: normal rate Respiratory/Chest: decreased breath sounds Abdomen: normal bowel sounds, non tender, soft Extremities: non-tender Jonathan Dumont MD Oct 26, 2018 10:31
[2018-10-26 12:00] VITALS: BP 136/86
--- NOTE | 2018-10-26 12:27 | General Progress Note ---
Assessment/Plan Problem List: (1) Hepatitis C ICD Codes: B19.20 - Unspecified viral hepatitis C without hepatic coma SNOMED: 51841795 (2) Anemia ICD Codes: D64.9 - Anemia, unspecified SNOMED: 008663010 (3) Dialysis patient ICD Codes: Z99.2 - Dependence on renal dialysis SNOMED: 659129642 (4) FTT (failure to thrive) in adult ICD Codes: R62.7 - Adult failure to thrive SNOMED: 400058725 (5) Cellulitis ICD Codes: L03.90 - Cellulitis, unspecified SNOMED: 766974168 Qualifiers: Qualified Codes: L03.116 - Cellulitis of left lower limb (6) Leukocytosis ICD Codes: D72.829 - Elevated white blood cell count, unspecified SNOMED: 997435728, 333208318 (7) Homeless ICD Codes: Z59.0 - Homelessness SNOMED: 45637836, 604103449 (8) Missed dialysis SNOMED: 938522975 (9) CHF (congestive heart failure) ICD Codes: I50.9 - Heart failure, unspecified SNOMED: 35439103 (10) Bacteremia ICD Codes: R78.81 - Bacteremia SNOMED: 9105380 Assessment/Plan ASSESSMENT: The patient is a 62-year-old homeless male with a history of IV drug use; hepatitis C; hepatopathy; end-stage renal disease, on dialysis via tunneled cath; and noncompliance with missed dialysis, presenting with weakness, failure to thrive, and likely infection with leukocytosis and systemic inflammatory response syndrome/sepsis PROBLEM LIST: 1. End-stage renal disease, status post missed dialysis via PermCath. 2. Anemia, acute on chronic, with evidence of iron deficiency. 3. Hepatitis C. 4. Left thigh wound, imaging at [facility] reviewed. No evidence of abscess. 5. IV drug use. 6. Homelessness. 7. Systemic inflammatory response syndrome/sepsis 8. Leukocytosis. 9. Hypothyroidism 10. GPC bacteremia, likely contaminant 11. CHF with systolic dysfunction TREATMENT PLAN: 1. Off Abx 2. BIW labs 3. HD per renal 4. Surgery recs/wound care 5. BP management: Coreg 25 BID, Lisin to 10 & Norvasc 5 6. Monitor hemoglobin and hematocrit, transfuse PRN Hb < 7, EPO 7. F/U GI and heme recs 8. F/U cardiology recs, medical management of CHF, ischemia eval at some point 9. Social work working on placement 10. Pain control/supportive care. 11. Continue Synthroid 12. Multivitamins, thiamine, and folate. 13. DVT prophylaxis, heparin subcutaneous. 14. Diabetic renal diet. 15. The patient is a Full Code. 16. Psych recs Subjective Allergies: Coded Allergies: No Known Allergies (Unverified , 10/04/18) Subjective NITESH, BP better, AFVSS [employer] notes reviewed No F/C/CP/SOB/N/V/D Objective Last 24 Hour Vital Signs Date Time Temp Pulse Resp B/P (MAP) Pulse Ox O2 Delivery O2 Flow Rate FiO2 10/26/18 12:00 97.1 81 18 136/86 (103) 99 10/26/18 09:00 Room Air 10/26/18 08:31 141/93 10/26/18 08:31 76 141/93 10/26/18 08:30 76 141/93 10/26/18 08:00 98.0 76 18 141/93 (109) 96 10/26/18 04:00 97.2 86 20 136/81 (99) 99 10/26/18 00:00 98.0 83 20 138/73 (94) 99 10/25/18 21:00 Room Air 10/25/18 20:57 81 153/92 10/25/18 20:00 98.3 81 18 153/92 (112) 96 10/25/18 17:24 71 145/84 10/25/18 16:40 71 145/84 10/25/18 16:00 98.1 71 18 145/84 (104) 97 10/25/18 13:36 Room Air Intake and Output 10/25/18 10/26/18 19:00 07:00 Output Total 3000 ml 450 ml Balance -3000 ml -450 ml Output Urine Total 450 ml Hemodialysis UF 3000 ml Height (Feet): 5 Height (Inches): 8.00 Weight (Pounds): 122 General Appearance: no apparent distress, cachetic EENT: PERRL/EOMI, normal ENT inspection, TMs normal Neck: non-tender, normal alignment, supple Cardiovascular: normal peripheral pulses, normal rate, regular rhythm Respiratory/Chest: chest wall non-tender, lungs clear, normal breath sounds, no respiratory distress, no accessory muscle use Abdomen: normal bowel sounds, non tender, soft, no organomegaly, no mass Edema: no edema noted Arm (L), no edema noted Arm (R), no edema noted Leg (L), no edema noted Leg (R), no edema noted Pedal (L), no edema noted Pedal (R), no edema noted Generalized Michael Coleman MD Oct 26, 2018 12:27
--- NOTE | 2018-10-26 13:03 | Nephrology Progress Note ---
Assessment/Plan Problem List: (1) Cardiomyopathy (2) ESRD on dialysis (3) Bacteremia (4) Homeless (5) Leukocytosis Assessment: strep bacteremia Assessment ESRD- Cardiomyopathy Anemia of CKD Hyperkalemia Leukocytosis, ? Line infection FTT (failure to thrive) in adult- malnutrition Homeless Plan up dose coreg IV iron- Kayexelate as needed Iron- stop IV Iron as ferritin is over 1500 Folate- po Dialysis as needed, Phos binders 2D echo Septal hypokinesis.mid to distal Inferior wall hypokinesis Left ventricular ejection fraction estimated to be 40%. blood cultures per orders Subjective ROS Limited/Unobtainable: No Constitutional: Reports: malaise, weakness Objective Objective Last 24 Hour Vital Signs Date Time Temp Pulse Resp B/P (MAP) Pulse Ox O2 Delivery O2 Flow Rate FiO2 10/26/18 12:00 97.1 81 18 136/86 (103) 99 10/26/18 09:00 Room Air 10/26/18 08:31 141/93 10/26/18 08:31 76 141/93 10/26/18 08:30 76 141/93 10/26/18 08:00 98.0 76 18 141/93 (109) 96 10/26/18 04:00 97.2 86 20 136/81 (99) 99 10/26/18 00:00 98.0 83 20 138/73 (94) 99 10/25/18 21:00 Room Air 10/25/18 20:57 81 153/92 10/25/18 20:00 98.3 81 18 153/92 (112) 96 10/25/18 17:24 71 145/84 10/25/18 16:40 71 145/84 10/25/18 16:00 98.1 71 18 145/84 (104) 97 10/25/18 13:36 Room Air Intake and Output 10/25/18 10/26/18 18:59 06:59 Output Total 3000 ml 450 ml Balance -3000 ml -450 ml Output Urine Total 450 ml Hemodialysis UF 3000 ml Height (Feet): 5 Height (Inches): 8.00 Weight (Pounds): 122 General Appearance: no apparent distress Cardiovascular: normal rate Respiratory/Chest: lungs clear Abdomen: soft Objective no change David Meyers MD Oct 26, 2018 13:03
--- NOTE | 2018-10-26 15:55 | General Progress Note ---
Assessment/Plan Assessment/Plan #. Anemia of kidney disease/esrd -- anemia panel reviewed, has end-stage renal disease, status post missed dialysis via PermCath. --> transfuse on prn basis, if hgb <7 --> no evidence for hemolysis noted --> do not recommend iron at this time --> cont po folic acid and thiamine daily --> HD on permacath R arm --> getting epogen since hd and esrd, also vit b/folic acid --> hemoglobin electrophoresis is normal, no sickle cell trait noted --> no indication for iv iron --> hgb 7.7-->7.6-->7.8-->8.2-->8.6 #. Thrombocytopenia due to underlying Hepatitis C. has been chronic, unchanged --> Improved/Resolved --> afp 2.1, and trend plts as needed --> peripheral smear reviewed --> on abx as per ID #. Leukocytosis likely due to infection. --> Improved/Resolved --> completed IV abx #. Left thigh wound, imaging at [facility] reviewed. No evidence of abscess. --> completed abx as per id --> skin protectant per surg #. IV drug use. #. Homelessness. #. Systemic inflammatory response syndrome. #. Hypothyroidism. #. Hep C -- outpatient eradication #. ESRD on hd 3x a week #. DVT ppx with heparin sq GREATLY APPRECIATE CONSULTATION. Subjective Constitutional: Denies: no symptoms, chills, diaphoresis, fever, malaise, weakness, other HEENT: Denies: no symptoms, eye pain, blurred vision, tearing, double vision, ear pain, ear discharge, nose pain, nose congestion, throat pain, throat swelling, mouth pain, mouth swelling, other Cardiovascular: Denies: no symptoms, chest pain, edema, irregular heart rate, lightheadedness, palpitations, syncope, other Respiratory: Denies: no symptoms, cough, orthopnea, shortness of breath, SOB with excertion, SOB at rest, sputum, stridor, wheezing, other Gastrointestinal/Abdominal: Denies: no symptoms, abdomen distended, abdominal pain, black stools, tarry stools, blood in stool, constipated, diarrhea, difficulty swallowing, nausea, poor appetite, poor fluid intake, rectal bleeding , vomiting, other Genitourinary: Denies: no symptoms, burning, discharge, frequency, flank pain, hematuria, incontinence, pain, urgency, other Neurologic/Psychiatric: Denies: no symptoms, anxiety, depressed, emotional problems, headache, numbness, paresthesia, pre-existing deficit, seizure, tingling, tremors, weakness, other Hematologic/Lymphatic: Denies: no symptoms, anemia, easy bleeding, easy bruising, other Allergies: Coded Allergies: No Known Allergies (Unverified , 10/04/18) Subjective Pt awake and alert. No acute events. HD for today. H/H stable. 10/25: no further iv iron indicated 10/26: blood cultures pending, remains tired, on epo, no EGD/Colon as per patient wishes Objective Last 24 Hour Vital Signs Date Time Temp Pulse Resp B/P (MAP) Pulse Ox O2 Delivery O2 Flow Rate FiO2 10/26/18 12:00 97.1 81 18 136/86 (103) 99 10/26/18 09:00 Room Air 10/26/18 08:31 141/93 10/26/18 08:31 76 141/93 10/26/18 08:30 76 141/93 10/26/18 08:00 98.0 76 18 141/93 (109) 96 10/26/18 04:00 97.2 86 20 136/81 (99) 99 10/26/18 00:00 98.0 83 20 138/73 (94) 99 10/25/18 21:00 Room Air 10/25/18 20:57 81 153/92 10/25/18 20:00 98.3 81 18 153/92 (112) 96 10/25/18 17:24 71 145/84 10/25/18 16:40 71 145/84 10/25/18 16:00 98.1 71 18 145/84 (104) 97 Intake and Output 10/25/18 10/26/18 18:59 06:59 Output Total 3000 ml 450 ml Balance -3000 ml -450 ml Output Urine Total 450 ml Hemodialysis UF 3000 ml Laboratory Tests 10/26/18 14:40: C-Reactive Protein, Quantitative 3.0H Height (Feet): 5 Height (Inches): 8.00 Weight (Pounds): 122 General Appearance: no apparent distress EENT: TMs normal Neck: normal inspection Cardiovascular: normal rate Respiratory/Chest: normal breath sounds Abdomen: soft Extremities: non-tender Objective PHYSICAL EXAMINATION: GENERAL: elderly cachectic-looking gentleman in no respiratory distress NECK: Supple. No jugular venous distention. LUNGS: Ctab, Less coughing CARDIAC: Regular rhythm. holosystolic regurgitant murmur ++ ABDOMEN: Soft and not. ++ bowel sounds. EXTREMITIES: There is no clubbing, no cyanosis. There is no edema. Back: He has extensive ischemic changes in the skin in the inner thigh on both legs with eschar formation. Gordo Jang MD Oct 26, 2018 15:55
[2018-10-26 16:00] VITALS: BP 144/85
[2018-10-26 20:00] VITALS: BP 135/82
[2018-10-26] MEDS: OLANZapine 10mg tab ORAL SCH (20:30)
[2018-10-27] VITALS: BP 134/76
[2018-10-27] MEDS: HYDROcodone/Acetamin 10/325 tab ORAL PRN ×6 (00:31→22:49)
[2018-10-27 04:00] VITALS: BP 152/86
[2018-10-27] MEDS: Levothyroxine 25mcg tab ORAL SCH (05:30)
[2018-10-27 08:00] VITALS: BP 149/80
[2018-10-27] MEDS: Docusate 100mg cap ORAL SCH ×6 (09:00→18:44)
[2018-10-27] MEDS: Lisinopril 10mg tab ORAL SCH (09:13)
[2018-10-27] MEDS: Nephrovite tab (Rena-Vite) ORAL SCH (09:13)
[2018-10-27] MEDS: Thiamine 100mg tab ORAL SCH (09:14)
[2018-10-27] MEDS: Carvedilol 25mg Tab ORAL SCH ×2 (09:15→21:29)
[2018-10-27] MEDS: Heparin 5000 units/ml inj SUBQ SCH ×2 (09:20→21:35)
[2018-10-27 11:31] LABS: EOSINOPHILS % (AUTO) 1.7 % (0.0-3.0); HEMATOCRIT 28.2 % (42.0-52.0); HEMOGLOBIN 8.8 G/DL (14.2-18.0); LYMPHOCYTES % (AUTO) 13.5 % (20.0-45.0); MEAN CORPUSCULAR VOLUME 92 FL (80-99); MONOCYTES % (AUTO) 7.9 % (1.0-10.0); NEUTROPHILS % (AUTO) 75.9 % (45.0-75.0); PLATELET COUNT 162 K/UL (150-450); RED BLOOD COUNT 3.06 M/UL (4.70-6.10); RED CELL DISTRIBUTION WIDTH 20.4 % (11.6-14.8)
--- NOTE | 2018-10-27 11:35 | GI Progress Note ---
Assessment/Plan Problems: (1) ESRD on dialysis ICD Codes: N18.6 - End stage renal disease; Z99.2 - Dependence on renal dialysis SNOMED: 853764361 (2) Hepatitis C ICD Codes: B19.20 - Unspecified viral hepatitis C without hepatic coma SNOMED: 16987529 (3) Anemia ICD Codes: D64.9 - Anemia, unspecified SNOMED: 139915337 (4) FTT (failure to thrive) in adult ICD Codes: R62.7 - Adult failure to thrive SNOMED: 684749378 Status: stable Status Narrative Discussed with Dr. Dumont Assessment/Plan Assessment - Anemia, multifactorial - Hepatitis C - Patient declines EGD/Colon - ESRD / HD - malnutrition - poor nursing home prognosis Recommendations - EPO - PPI - follow labs - push po - no EGD/Colon , per patient wishes - can consider HCV eradication at later date The patient was seen and examined at bedside and all new and available data was reviewed in the patients chart. I agree with the above findings, impression and plan. (Patient seen earlier today. Signature stamp does not reflect patient encounter time.). - Jonathan Dumont MD Subjective Gastrointestinal/Abdominal: Reports: no symptoms Objective Last 24 Hour Vital Signs Date Time Temp Pulse Resp B/P (MAP) Pulse Ox O2 Delivery O2 Flow Rate FiO2 10/27/18 10:10 98.1 10/27/18 09:15 79 149/80 10/27/18 09:15 Room Air 10/27/18 09:13 149/80 10/27/18 09:13 79 149/80 10/27/18 08:00 98.1 79 18 149/80 (103) 94 10/27/18 04:00 87 16 152/86 (108) 98 10/27/18 00:00 97.8 70 18 134/76 (95) 97 10/26/18 20:29 80 135/82 10/26/18 20:05 Room Air 10/26/18 20:00 98.9 80 18 135/82 (99) 94 10/26/18 16:00 98.0 75 18 144/85 (104) 96 10/26/18 12:00 97.1 81 18 136/86 (103) 99 Intake and Output 10/26/18 10/27/18 19:00 07:00 Intake Total 1000 ml 200 ml Output Total 400 ml Balance 1000 ml -200 ml Intake Oral 200 ml Other 1000 ml Output Urine Total 400 ml # Bowel Movements 1 Laboratory Tests Test 10/26/18 14:40 10/27/18 09:35 C-Reactive Protein, Quantitative 3.0 mg/dL (0.00-0.90) H White Blood Count Pending Red Blood Count Pending Hemoglobin Pending Hematocrit Pending Mean Corpuscular Volume Pending Mean Corpuscular Hemoglobin Pending Mean Corpuscular Hemoglobin Concent Pending Red Cell Distribution Width Pending Platelet Count Pending Mean Platelet Volume Pending Neutrophils (%) (Auto) Pending Lymphocytes (%) (Auto) Pending Monocytes (%) (Auto) Pending Eosinophils (%) (Auto) Pending Basophils (%) (Auto) Pending Sodium Level Pending Potassium Level Pending Chloride Level Pending Carbon Dioxide Level Pending Blood Urea Nitrogen Pending Creatinine Pending Estimat Glomerular Filtration Rate Pending Glucose Level Pending Uric Acid Pending Calcium Level Pending Phosphorus Level Pending Magnesium Level Pending Total Bilirubin Pending Aspartate Amino Transf (AST/SGOT) Pending Alanine Aminotransferase (ALT/SGPT) Pending Alkaline Phosphatase Pending Pro-B-Type Natriuretic Peptide Pending Total Protein Pending Albumin Pending Globulin Pending Height (Feet): 5 Height (Inches): 8.00 Weight (Pounds): 126 General Appearance: WD/WN, no apparent distress, alert Cardiovascular: normal rate Respiratory/Chest: normal breath sounds, no respiratory distress Abdominal Exam: normal bowel sounds, non tender, soft Extremities: normal range of motion, non-tender Shraddha Bailey NP Oct 27, 2018 11:35
[2018-10-27 11:36] LABS: ALANINE AMINOTRANSFERASE 45 U/L (12-78); ALBUMIN/GLOBULIN RATIO 0.4 (1.0-2.7); ALKALINE PHOSPHATASE 193 U/L (46-116); ANION GAP 13 mmol/L (5-15); ASPARTATE AMINO TRANSFERASE 30 U/L (15-37); BILIRUBIN,TOTAL 0.4 MG/DL (0.2-1.0); BLOOD UREA NITROGEN 86 mg/dL (7-18); CALCIUM 8.2 MG/DL (8.5-10.1); CARBON DIOXIDE 24 MMOL/L (21-32); CHLORIDE 98 MMOL/L (98-107); CREATININE 6.9 MG/DL (0.55-1.30); PHOSPHORUS 5.3 MG/DL (2.5-4.9); SODIUM 134 MMOL/L (136-145)
[2018-10-27 11:39] LABS: POTASSIUM 6.1 MMOL/L (3.5-5.1)
[2018-10-27] MEDS ORDERED: Sodium Polystyrene Sulfonate 15gm Powder ORAL SCH ×2 (12:00→13:30)
[2018-10-27 12:05] VITALS: BP 123/78
--- NOTE | 2018-10-27 12:05 | Nephrology Progress Note ---
Assessment/Plan Problem List: (1) Cardiomyopathy (2) ESRD on dialysis (3) Bacteremia (4) Homeless (5) Leukocytosis Assessment: strep bacteremia Assessment ESRD- Cardiomyopathy Anemia of CKD Hyperkalemia Leukocytosis, ? Line infection FTT (failure to thrive) in adult- malnutrition Homeless Plan stop lisinopril- kayexelate po- HD in am start hydralazine up dose coreg Kayexelate as needed Folate- po Phos binders 2D echo Septal hypokinesis.mid to distal Inferior wall hypokinesis Left ventricular ejection fraction estimated to be 40%. blood cultures per orders Subjective ROS Limited/Unobtainable: No Constitutional: Reports: weakness Objective Objective Last 24 Hour Vital Signs Date Time Temp Pulse Resp B/P (MAP) Pulse Ox O2 Delivery O2 Flow Rate FiO2 10/27/18 10:10 98.1 10/27/18 09:15 79 149/80 10/27/18 09:15 Room Air 10/27/18 09:13 149/80 10/27/18 09:13 79 149/80 10/27/18 08:00 98.1 79 18 149/80 (103) 94 10/27/18 04:00 87 16 152/86 (108) 98 10/27/18 00:00 97.8 70 18 134/76 (95) 97 10/26/18 20:29 80 135/82 10/26/18 20:05 Room Air 10/26/18 20:00 98.9 80 18 135/82 (99) 94 10/26/18 16:00 98.0 75 18 144/85 (104) 96 Intake and Output 10/26/18 10/27/18 19:00 07:00 Intake Total 1000 ml 200 ml Output Total 400 ml Balance 1000 ml -200 ml Intake Oral 200 ml Other 1000 ml Output Urine Total 400 ml # Bowel Movements 1 Laboratory Tests 10/26/18 14:40: C-Reactive Protein, Quantitative 3.0H 10/27/18 09:35: White Blood Count 13.0H, Red Blood Count 3.06L, Hemoglobin 8.8L, Hematocrit 28.2L, Mean Corpuscular Volume 92, Mean Corpuscular Hemoglobin 28.8, Mean Corpuscular Hemoglobin Concent 31.3L, Red Cell Distribution Width 20.4H, Platelet Count 162, Mean Platelet Volume 6.2L, Neutrophils (%) (Auto) 75.9H, Lymphocytes (%) (Auto) 13.5L, Monocytes (%) (Auto) 7.9, Eosinophils (%) (Auto) 1.7, Basophils (%) (Auto) 1.0, Sodium Level 134L, Potassium Level 6.1*H, Chloride Level 98, Carbon Dioxide Level 24, Anion Gap 13, Blood Urea Nitrogen 86H, Creatinine 6.9H, Estimat Glomerular Filtration Rate 8.1, Glucose Level 125H , Uric Acid 5.0, Calcium Level 8.2L, Phosphorus Level 5.3H, Magnesium Level 1.8 , Total Bilirubin 0.4, Aspartate Amino Transf (AST/SGOT) 30, Alanine Aminotransferase (ALT/SGPT) 45, Alkaline Phosphatase 193H, Pro-B-Type Natriuretic Peptide > 06557X, Total Protein 6.7, Albumin 2.0L, Globulin 4.7, Albumin/Globulin Ratio 0.4L Height (Feet): 5 Height (Inches): 8.00 Weight (Pounds): 126 General Appearance: no apparent distress Objective no change David Meyers MD Oct 27, 2018 12:05
--- NOTE | 2018-10-27 13:28 | General Progress Note ---
Assessment/Plan Problem List: (1) Hepatitis C ICD Codes: B19.20 - Unspecified viral hepatitis C without hepatic coma SNOMED: 97296451 (2) Anemia ICD Codes: D64.9 - Anemia, unspecified SNOMED: 712071726 (3) Dialysis patient ICD Codes: Z99.2 - Dependence on renal dialysis SNOMED: 087305020 (4) FTT (failure to thrive) in adult ICD Codes: R62.7 - Adult failure to thrive SNOMED: 340580239 (5) Cellulitis ICD Codes: L03.90 - Cellulitis, unspecified SNOMED: 081114091 Qualifiers: Qualified Codes: L03.116 - Cellulitis of left lower limb (6) Leukocytosis ICD Codes: D72.829 - Elevated white blood cell count, unspecified SNOMED: 387130813, 646061389 (7) Homeless ICD Codes: Z59.0 - Homelessness SNOMED: 98420972, 096274057 (8) Missed dialysis SNOMED: 949008477 (9) CHF (congestive heart failure) ICD Codes: I50.9 - Heart failure, unspecified SNOMED: 43982150 (10) Bacteremia ICD Codes: R78.81 - Bacteremia SNOMED: 4090067 Assessment/Plan ASSESSMENT: The patient is a 62-year-old homeless male with a history of IV drug use; hepatitis C; hepatopathy; end-stage renal disease, on dialysis via tunneled cath; and noncompliance with missed dialysis, presenting with weakness, failure to thrive, and likely infection with leukocytosis and systemic inflammatory response syndrome/sepsis PROBLEM LIST: 1. End-stage renal disease, status post missed dialysis via PermCath. 2. Anemia, acute on chronic, with evidence of iron deficiency. 3. Hepatitis C. 4. Left thigh wound, imaging at [facility] reviewed. No evidence of abscess. 5. IV drug use. 6. Homelessness. 7. Systemic inflammatory response syndrome/sepsis 8. Leukocytosis. 9. Hypothyroidism 10. GPC bacteremia, likely contaminant 11. CHF with systolic dysfunction TREATMENT PLAN: 1. Off Abx 2. Monitor labs 3. HD per renal 4. Surgery recs/wound care 5. BP management 6. Monitor hemoglobin and hematocrit, transfuse PRN Hb < 7 7. F/U GI and heme recs 8. F/U cardiology recs, medical management of CHF, ischemia eval at some point 9. Social work working on placement 10. Pain control/supportive care. 11. Continue Synthroid 12. Multivitamins, thiamine, and folate. 13. DVT prophylaxis, heparin subcutaneous. 14. Diabetic renal diet. 15. The patient is a Full Code. 16. 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 [employer] Responsibility notes reviewed No F/C/CP/SOB/N/V/D Objective Last 24 Hour Vital Signs Date Time Temp Pulse Resp B/P (MAP) Pulse Ox O2 Delivery O2 Flow Rate FiO2 10/27/18 12:05 97.7 72 18 123/78 (93) 95 10/27/18 10:10 98.1 10/27/18 09:15 79 149/80 10/27/18 09:15 Room Air 10/27/18 09:13 149/80 10/27/18 09:13 79 149/80 10/27/18 08:00 98.1 79 18 149/80 (103) 94 10/27/18 04:00 87 16 152/86 (108) 98 10/27/18 00:00 97.8 70 18 134/76 (95) 97 10/26/18 20:29 80 135/82 10/26/18 20:05 Room Air 10/26/18 20:00 98.9 80 18 135/82 (99) 94 10/26/18 16:00 98.0 75 18 144/85 (104) 96 Intake and Output 10/26/18 10/27/18 19:00 07:00 Intake Total 1000 ml 200 ml Output Total 400 ml Balance 1000 ml -200 ml Intake Oral 200 ml Other 1000 ml Output Urine Total 400 ml # Bowel Movements 1 Laboratory Tests 10/26/18 14:40: C-Reactive Protein, Quantitative 3.0H 10/27/18 09:35: White Blood Count 13.0H, Red Blood Count 3.06L, Hemoglobin 8.8L, Hematocrit 28.2L, Mean Corpuscular Volume 92, Mean Corpuscular Hemoglobin 28.8, Mean Corpuscular Hemoglobin Concent 31.3L, Red Cell Distribution Width 20.4H, Platelet Count 162, Mean Platelet Volume 6.2L, Neutrophils (%) (Auto) 75.9H, Lymphocytes (%) (Auto) 13.5L, Monocytes (%) (Auto) 7.9, Eosinophils (%) (Auto) 1.7, Basophils (%) (Auto) 1.0, Sodium Level 134L, Potassium Level 6.1*H, Chloride Level 98, Carbon Dioxide Level 24, Anion Gap 13, Blood Urea Nitrogen 86H, Creatinine 6.9H, Estimat Glomerular Filtration Rate 8.1, Glucose Level 125H , Uric Acid 5.0, Calcium Level 8.2L, Phosphorus Level 5.3H, Magnesium Level 1.8 , Total Bilirubin 0.4, Aspartate Amino Transf (AST/SGOT) 30, Alanine Aminotransferase (ALT/SGPT) 45, Alkaline Phosphatase 193H, Pro-B-Type Natriuretic Peptide > 27182C, Total Protein 6.7, Albumin 2.0L, Globulin 4.7, Albumin/Globulin Ratio 0.4L Height (Feet): 5 Height (Inches): 8.00 Weight (Pounds): 126 General Appearance: no apparent distress, cachetic EENT: PERRL/EOMI, normal ENT inspection, TMs normal Neck: non-tender, normal alignment, supple, normal inspection Cardiovascular: normal peripheral pulses, normal rate, regular rhythm Respiratory/Chest: chest wall non-tender, lungs clear, normal breath sounds, no respiratory distress, no accessory muscle use Abdomen: normal bowel sounds, non tender, soft, no organomegaly, no mass Edema: no edema noted Arm (L), no edema noted Arm (R), no edema noted Leg (L), no edema noted Leg (R), no edema noted Pedal (L), no edema noted Pedal (R), no edema noted Generalized Michael Coleman MD Oct 27, 2018 13:28
[2018-10-27] MEDS: HydrALAZINE 25mg tab ORAL SCH ×2 (13:41→21:28)
[2018-10-27 15:47] VITALS: BP 131/82
[2018-10-27 20:00] VITALS: BP 144/86
--- NOTE | 2018-10-27 20:19 | General Progress Note ---
Assessment/Plan Problem List: (1) Schizophrenia ICD Codes: F20.9 - Schizophrenia, unspecified SNOMED: 78798516 Assessment/Plan Zyprexa 30mg po qhs Remeron 15mg qhs provided ro/st Subjective Neurologic/Psychiatric: Reports: anxiety, depressed Allergies: Coded Allergies: No Known Allergies (Unverified , 10/04/18) Subjective the pt is doing better he is depressed and stated that his sleep is better Objective Last 24 Hour Vital Signs Date Time Temp Pulse Resp B/P (MAP) Pulse Ox O2 Delivery O2 Flow Rate FiO2 10/27/18 15:47 98.0 75 19 131/82 (98) 96 10/27/18 14:12 97.7 10/27/18 13:41 123/78 10/27/18 12:05 97.7 72 18 123/78 (93) 95 10/27/18 09:15 79 149/80 10/27/18 09:15 Room Air 10/27/18 09:13 149/80 10/27/18 09:13 79 149/80 10/27/18 08:00 98.1 79 18 149/80 (103) 94 10/27/18 04:00 87 16 152/86 (108) 98 10/27/18 00:00 97.8 70 18 134/76 (95) 97 10/26/18 20:29 80 135/82 Intake and Output 10/26/18 10/27/18 18:59 06:59 Intake Total 1000 ml 200 ml Output Total 400 ml Balance 1000 ml -200 ml Intake Oral 200 ml Other 1000 ml Output Urine Total 400 ml # Bowel Movements 1 Laboratory Tests 10/27/18 09:35: White Blood Count 13.0H, Red Blood Count 3.06L, Hemoglobin 8.8L, Hematocrit 28.2L, Mean Corpuscular Volume 92, Mean Corpuscular Hemoglobin 28.8, Mean Corpuscular Hemoglobin Concent 31.3L, Red Cell Distribution Width 20.4H, Platelet Count 162, Mean Platelet Volume 6.2L, Neutrophils (%) (Auto) 75.9H, Lymphocytes (%) (Auto) 13.5L, Monocytes (%) (Auto) 7.9, Eosinophils (%) (Auto) 1.7, Basophils (%) (Auto) 1.0, Sodium Level 134L, Potassium Level 6.1*H, Chloride Level 98, Carbon Dioxide Level 24, Anion Gap 13, Blood Urea Nitrogen 86H, Creatinine 6.9H, Estimat Glomerular Filtration Rate 8.1, Glucose Level 125H , Uric Acid 5.0, Calcium Level 8.2L, Phosphorus Level 5.3H, Magnesium Level 1.8 , Total Bilirubin 0.4, Aspartate Amino Transf (AST/SGOT) 30, Alanine Aminotransferase (ALT/SGPT) 45, Alkaline Phosphatase 193H, Pro-B-Type Natriuretic Peptide > 91667Q, Total Protein 6.7, Albumin 2.0L, Globulin 4.7, Albumin/Globulin Ratio 0.4L Height (Feet): 5 Height (Inches): 8.00 Weight (Pounds): 126 General Appearance: no apparent distress, alert, cachetic Minal Nuñez MD Oct 27, 2018 20:19
[2018-10-27] MEDS: OLANZapine 10mg tab ORAL SCH (21:33)
[2018-10-27] MEDS: Epogen (for ESRD on dialysis) SUBQ SCH (21:36)
[2018-10-28] VITALS: BP 138/73
[2018-10-28 04:00] VITALS: BP 132/86
[2018-10-28] MEDS: HYDROcodone/Acetamin 10/325 tab ORAL PRN ×5 (04:11→22:27)
[2018-10-28] MEDS: HydrALAZINE 25mg tab ORAL SCH ×3 (06:31→21:14)
[2018-10-28] MEDS: Levothyroxine 25mcg tab ORAL SCH (06:32)
[2018-10-28 08:00] VITALS: BP 138/79
[2018-10-28] MEDS: Thiamine 100mg tab ORAL SCH (08:31)
[2018-10-28] MEDS: Docusate 100mg cap ORAL SCH ×3 (08:31→17:44)
[2018-10-28] MEDS: Carvedilol 25mg Tab ORAL SCH ×2 (08:31→21:13)
[2018-10-28] MEDS: Nephrovite tab (Rena-Vite) ORAL SCH ×2 (08:32→08:46)
[2018-10-28] MEDS: Heparin 5000 units/ml inj SUBQ SCH ×2 (08:33→21:16)
[2018-10-28 09:43] LABS: BASOPHILS % (AUTO) 1.7 % (0.0-2.0); EOSINOPHILS % (AUTO) 1.8 % (0.0-3.0); HEMATOCRIT 27.9 % (42.0-52.0); HEMOGLOBIN 8.6 G/DL (14.2-18.0); LYMPHOCYTES % (AUTO) 16.5 % (20.0-45.0); MEAN CORPUSCULAR VOLUME 92 FL (80-99); MONOCYTES % (AUTO) 4.5 % (1.0-10.0); NEUTROPHILS % (AUTO) 75.6 % (45.0-75.0); PLATELET COUNT 134 K/UL (150-450); RED BLOOD COUNT 3.02 M/UL (4.70-6.10); RED CELL DISTRIBUTION WIDTH 20.6 % (11.6-14.8); WHITE BLOOD COUNT 10.5 K/UL (4.8-10.8)
--- NOTE | 2018-10-28 10:03 | General Progress Note ---
Assessment/Plan Problem List: (1) Hepatitis C ICD Codes: B19.20 - Unspecified viral hepatitis C without hepatic coma SNOMED: 61504765 (2) Anemia ICD Codes: D64.9 - Anemia, unspecified SNOMED: 397370435 (3) Dialysis patient ICD Codes: Z99.2 - Dependence on renal dialysis SNOMED: 809840840 (4) FTT (failure to thrive) in adult ICD Codes: R62.7 - Adult failure to thrive SNOMED: 142644396 (5) Cellulitis ICD Codes: L03.90 - Cellulitis, unspecified SNOMED: 127899405 Qualifiers: Qualified Codes: L03.116 - Cellulitis of left lower limb (6) Leukocytosis ICD Codes: D72.829 - Elevated white blood cell count, unspecified SNOMED: 568567091, 481551605 (7) Homeless ICD Codes: Z59.0 - Homelessness SNOMED: 49641769, 517715290 (8) Missed dialysis SNOMED: 088713483 (9) CHF (congestive heart failure) ICD Codes: I50.9 - Heart failure, unspecified SNOMED: 09329187 (10) Bacteremia ICD Codes: R78.81 - Bacteremia SNOMED: 6819136 Assessment/Plan ASSESSMENT: The patient is a 62-year-old homeless male with a history of IV drug use; hepatitis C; hepatopathy; end-stage renal disease, on dialysis via tunneled cath; and noncompliance with missed dialysis, presenting with weakness, failure to thrive, and likely infection with leukocytosis and systemic inflammatory response syndrome/sepsis PROBLEM LIST: 1. End-stage renal disease, status post missed dialysis via PermCath. 2. Anemia, acute on chronic, with evidence of iron deficiency. 3. Hepatitis C. 4. Left thigh wound, imaging at [facility] reviewed. No evidence of abscess. 5. IV drug use. 6. Homelessness. 7. Systemic inflammatory response syndrome/sepsis 8. Leukocytosis. 9. Hypothyroidism 10. GPC bacteremia, likely contaminant 11. CHF with systolic dysfunction TREATMENT PLAN: 1. Off Abx 2. Monitor labs 3. HD per renal 4. Surgery recs/wound care 5. BP management 6. Monitor hemoglobin and hematocrit, transfuse PRN Hb < 7 7. F/U GI and heme recs 8. F/U cardiology recs, medical management of CHF, ischemia eval at some point 9. Social work working on placement 10. Pain control/supportive care. 11. Continue Synthroid 12. Multivitamins, thiamine, and folate. 13. DVT prophylaxis, heparin subcutaneous. 14. Diabetic renal diet. 15. The patient is a Full Code. 16. Psych recs Subjective Allergies: Coded Allergies: No Known Allergies (Unverified , 10/04/18) Subjective NITESH, BP stable, AFVSS Leukocytosis resolved Validation Intern notes reviewed No F/C/CP/SOB/N/V/D Objective Last 24 Hour Vital Signs Date Time Temp Pulse Resp B/P (MAP) Pulse Ox O2 Delivery O2 Flow Rate FiO2 10/28/18 09:00 Room Air 10/28/18 08:31 88 138/79 10/28/18 08:00 98.1 88 20 138/79 (98) 95 10/28/18 06:31 146/92 10/28/18 04:00 98.3 73 16 132/86 (101) 95 10/28/18 00:00 98.0 76 18 138/73 (94) 100 10/27/18 21:29 79 144/86 10/27/18 21:28 144/86 10/27/18 21:00 Room Air 10/27/18 20:00 97.9 79 18 144/86 (105) 100 10/27/18 15:47 98.0 75 19 131/82 (98) 96 10/27/18 14:12 97.7 10/27/18 13:41 123/78 10/27/18 12:05 97.7 72 18 123/78 (93) 95 Intake and Output 10/27/18 10/28/18 19:00 07:00 Intake Total 1000 ml Output Total 400 ml Balance 1000 ml -400 ml Other 1000 ml Output Urine Total 400 ml # Voids 2 # Bowel Movements 1 Laboratory Tests 10/27/18 21:50: Urine Opiates Screen Negative, Urine Barbiturates Screen Negative, Phencyclidine (PCP) Screen Negative, Urine Amphetamines Screen Negative, Urine Benzodiazepines Screen Negative, Urine Cocaine Screen Negative, Urine Marijuana (THC) Screen Negative 10/28/18 09:30: White Blood Count 10.5, Red Blood Count 3.02L, Hemoglobin 8.6L, Hematocrit 27.9L , Mean Corpuscular Volume 92, Mean Corpuscular Hemoglobin 28.5, Mean Corpuscular Hemoglobin Concent 31.0L, Red Cell Distribution Width 20.6H, Platelet Count 134L, Mean Platelet Volume 7.2, Neutrophils (%) (Auto) 75.6H, Lymphocytes (%) (Auto) 16.5L, Monocytes (%) (Auto) 4.5, Eosinophils (%) (Auto) 1.8, Basophils (%) (Auto) 1.7 Height (Feet): 5 Height (Inches): 8.00 Weight (Pounds): 125 General Appearance: no apparent distress, cachetic EENT: PERRL/EOMI, normal ENT inspection, TMs normal Neck: non-tender, normal alignment, supple Cardiovascular: normal peripheral pulses, normal rate, regular rhythm Respiratory/Chest: chest wall non-tender, lungs clear Abdomen: normal bowel sounds, non tender, soft, no organomegaly, no mass Edema: no edema noted Arm (L), no edema noted Arm (R), no edema noted Leg (L), no edema noted Leg (R), no edema noted Pedal (L), no edema noted Pedal (R), no edema noted Generalized Michael Coleman MD Oct 28, 2018 10:03
[2018-10-28 12:00] VITALS: BP 138/72
--- NOTE | 2018-10-28 14:54 | Nephrology Progress Note ---
Assessment/Plan Problem List: (1) Cardiomyopathy (2) ESRD on dialysis (3) Bacteremia (4) Homeless (5) Leukocytosis Assessment: strep bacteremia Assessment ESRD- Cardiomyopathy Anemia of CKD Hyperkalemia Leukocytosis, ? Line infection FTT (failure to thrive) in adult- malnutrition Homeless Plan stop lisinopril- kayexelate po- HD in process now 10/28 start hydralazine up dose coreg Kayexelate as needed Folate- po Phos binders 2D echo Septal hypokinesis.mid to distal Inferior wall hypokinesis Left ventricular ejection fraction estimated to be 40%. blood cultures per orders Subjective ROS Limited/Unobtainable: No Constitutional: Reports: malaise Objective Objective Last 24 Hour Vital Signs Date Time Temp Pulse Resp B/P (MAP) Pulse Ox O2 Delivery O2 Flow Rate FiO2 10/28/18 13:31 138/72 10/28/18 12:00 97.6 85 20 138/72 (94) 95 10/28/18 09:00 Room Air 10/28/18 08:31 88 138/79 10/28/18 08:00 98.1 88 20 138/79 (98) 95 10/28/18 06:31 146/92 10/28/18 04:00 98.3 73 16 132/86 (101) 95 10/28/18 00:00 98.0 76 18 138/73 (94) 100 10/27/18 21:29 79 144/86 10/27/18 21:28 144/86 10/27/18 21:00 Room Air 10/27/18 20:00 97.9 79 18 144/86 (105) 100 10/27/18 15:47 98.0 75 19 131/82 (98) 96 Intake and Output 10/27/18 10/28/18 19:00 07:00 Intake Total 1000 ml Output Total 400 ml Balance 1000 ml -400 ml Other 1000 ml Output Urine Total 400 ml # Voids 2 # Bowel Movements 1 Laboratory Tests 10/27/18 21:50: Urine Opiates Screen Negative, Urine Barbiturates Screen Negative, Phencyclidine (PCP) Screen Negative, Urine Amphetamines Screen Negative, Urine Benzodiazepines Screen Negative, Urine Cocaine Screen Negative, Urine Marijuana (THC) Screen Negative 10/28/18 09:30: White Blood Count 10.5, Red Blood Count 3.02L, Hemoglobin 8.6L, Hematocrit 27.9L , Mean Corpuscular Volume 92, Mean Corpuscular Hemoglobin 28.5, Mean Corpuscular Hemoglobin Concent 31.0L, Red Cell Distribution Width 20.6H, Platelet Count 134L, Mean Platelet Volume 7.2, Neutrophils (%) (Auto) 75.6H, Lymphocytes (%) (Auto) 16.5L, Monocytes (%) (Auto) 4.5, Eosinophils (%) (Auto) 1.8, Basophils (%) (Auto) 1.7 Height (Feet): 5 Height (Inches): 8.00 Weight (Pounds): 125 General Appearance: no apparent distress Objective no change David Meyers MD Oct 28, 2018 14:54
[2018-10-28 16:00] VITALS: BP 145/78
[2018-10-28 20:00] VITALS: BP 151/82
--- NOTE | 2018-10-28 20:09 | General Progress Note ---
Assessment/Plan Assessment/Plan #. Anemia of kidney disease/esrd -- anemia panel reviewed, has end-stage renal disease, status post missed dialysis via PermCath. --> transfuse on prn basis, if hgb <7 --> no evidence for hemolysis noted --> do not recommend iron at this time --> cont po folic acid and thiamine daily --> HD on permacath R arm --> getting epogen since hd and esrd, also vit b/folic acid --> hemoglobin electrophoresis is normal, no sickle cell trait noted --> no indication for iv iron --> hgb 7.7-->7.6-->7.8-->8.2-->8.6 #. Thrombocytopenia due to underlying Hepatitis C. has been chronic --> Trend 200s-->134k --> afp 2.1, and trend plts as needed --> peripheral smear reviewed --> on abx as per ID #. Leukocytosis likely due to infection. --> Improved/Resolved --> completed IV abx #. Left thigh wound, imaging at [facility] reviewed. No evidence of abscess. --> completed abx as per id --> skin protectant per surg #. IV drug use. #. Homelessness. #. Systemic inflammatory response syndrome. #. Hypothyroidism. #. Hep C -- outpatient eradication #. ESRD on hd 3x a week #. DVT ppx with heparin sq GREATLY APPRECIATE CONSULTATION. Subjective Constitutional: Denies: no symptoms, chills, diaphoresis, fever, malaise, weakness, other HEENT: Denies: no symptoms, eye pain, blurred vision, tearing, double vision, ear pain, ear discharge, nose pain, nose congestion, throat pain, throat swelling, mouth pain, mouth swelling, other Cardiovascular: Denies: no symptoms, chest pain, edema, irregular heart rate, lightheadedness, palpitations, syncope, other Respiratory: Denies: no symptoms, cough, orthopnea, shortness of breath, SOB with excertion, SOB at rest, sputum, stridor, wheezing, other Gastrointestinal/Abdominal: Denies: no symptoms, abdomen distended, abdominal pain, black stools, tarry stools, blood in stool, constipated, diarrhea, difficulty swallowing, nausea, poor appetite, poor fluid intake, rectal bleeding , vomiting, other Genitourinary: Denies: no symptoms, burning, discharge, frequency, flank pain, hematuria, incontinence, pain, urgency, other Neurologic/Psychiatric: Denies: no symptoms, anxiety, depressed, emotional problems, headache, numbness, paresthesia, pre-existing deficit, seizure, tingling, tremors, weakness, other Endocrine: Denies: no symptoms, excessive sweating, flushing, intolerance to cold, intolerance to heat, increased hunger, increased thirst, increased urine, unexplained weight gain, unexplained weight loss, other Allergies: Coded Allergies: No Known Allergies (Unverified , 10/04/18) Subjective Pt awake and alert. No acute events. HD for today. H/H stable. 10/25: no further iv iron indicated 10/26: blood cultures pending, remains tired, on epo, no EGD/Colon as per patient wishes 10/27: no events noted 10/28: no events, no complaints, relays being in pain, wants pain meds Objective Last 24 Hour Vital Signs Date Time Temp Pulse Resp B/P (MAP) Pulse Ox O2 Delivery O2 Flow Rate FiO2 10/28/18 16:00 98.9 75 20 145/78 (100) 96 10/28/18 13:31 138/72 10/28/18 12:00 97.6 85 20 138/72 (94) 95 10/28/18 09:00 Room Air 10/28/18 08:31 88 138/79 10/28/18 08:00 98.1 88 20 138/79 (98) 95 10/28/18 06:31 146/92 10/28/18 04:00 98.3 73 16 132/86 (101) 95 10/28/18 00:00 98.0 76 18 138/73 (94) 100 10/27/18 21:29 79 144/86 10/27/18 21:28 144/86 10/27/18 21:00 Room Air Intake and Output 10/27/18 10/28/18 19:00 07:00 Intake Total 1000 ml Output Total 400 ml Balance 1000 ml -400 ml Other 1000 ml Output Urine Total 400 ml # Voids 2 # Bowel Movements 1 Laboratory Tests 10/27/18 21:50: Urine Opiates Screen Negative, Urine Barbiturates Screen Negative, Phencyclidine (PCP) Screen Negative, Urine Amphetamines Screen Negative, Urine Benzodiazepines Screen Negative, Urine Cocaine Screen Negative, Urine Marijuana (THC) Screen Negative 10/28/18 09:30: White Blood Count 10.5, Red Blood Count 3.02L, Hemoglobin 8.6L, Hematocrit 27.9L , Mean Corpuscular Volume 92, Mean Corpuscular Hemoglobin 28.5, Mean Corpuscular Hemoglobin Concent 31.0L, Red Cell Distribution Width 20.6H, Platelet Count 134L, Mean Platelet Volume 7.2, Neutrophils (%) (Auto) 75.6H, Lymphocytes (%) (Auto) 16.5L, Monocytes (%) (Auto) 4.5, Eosinophils (%) (Auto) 1.8, Basophils (%) (Auto) 1.7 Height (Feet): 5 Height (Inches): 8.00 Weight (Pounds): 125 Objective PHYSICAL EXAMINATION: GENERAL: elderly cachectic-looking gentleman in no respiratory distress NECK: Supple. No jugular venous distention. LUNGS: Ctab, Less coughing CARDIAC: Regular rhythm. holosystolic regurgitant murmur ++ ABDOMEN: Soft and not. ++ bowel sounds. EXTREMITIES: There is no clubbing, no cyanosis. There is no edema. Back: He has extensive ischemic changes in the skin in the inner thigh on both legs with eschar formation. Gordo Jang MD Oct 28, 2018 20:09
[2018-10-28] MEDS: OLANZapine 10mg tab ORAL SCH (21:13)
--- NOTE | 2018-10-28 23:27 | General Progress Note ---
Assessment/Plan Assessment/Plan Assessment - Anemia, multifactorial - Hepatitis C - Patient declines EGD/Colon - ESRD / HD - malnutrition - poor jail prognosis Recommendations - EPO - PPI - follow labs - push po - no EGD/Colon , per patient wishes - can consider HCV eradication at later date - I will return next week to see pt Subjective Allergies: Coded Allergies: No Known Allergies (Unverified , 10/04/18) Subjective Feels same no abdominal symptoms appetite good Assessment - Anemia, multifactorial - Hepatitis C - Patient declines EGD/Colon - ESRD / HD - malnutrition - poor jail prognosis Recommendations - EPO - PPI - follow labs - push po - no EGD/Colon , per patient wishes - can consider HCV eradication at later date Objective Last 24 Hour Vital Signs Date Time Temp Pulse Resp B/P (MAP) Pulse Ox O2 Delivery O2 Flow Rate FiO2 10/28/18 21:14 161/84 10/28/18 21:13 78 161/84 10/28/18 20:00 97.6 75 17 151/82 (105) 98 10/28/18 16:00 98.9 75 20 145/78 (100) 96 10/28/18 13:31 138/72 10/28/18 12:00 97.6 85 20 138/72 (94) 95 10/28/18 09:00 Room Air 10/28/18 08:31 88 138/79 10/28/18 08:00 98.1 88 20 138/79 (98) 95 10/28/18 06:31 146/92 10/28/18 04:00 98.3 73 16 132/86 (101) 95 10/28/18 00:00 98.0 76 18 138/73 (94) 100 Intake and Output 10/27/18 10/28/18 18:59 06:59 Intake Total 1000 ml Output Total 400 ml Balance 1000 ml -400 ml Other 1000 ml Output Urine Total 400 ml # Voids 2 # Bowel Movements 1 Laboratory Tests 10/28/18 09:30: White Blood Count 10.5, Red Blood Count 3.02L, Hemoglobin 8.6L, Hematocrit 27.9L , Mean Corpuscular Volume 92, Mean Corpuscular Hemoglobin 28.5, Mean Corpuscular Hemoglobin Concent 31.0L, Red Cell Distribution Width 20.6H, Platelet Count 134L, Mean Platelet Volume 7.2, Neutrophils (%) (Auto) 75.6H, Lymphocytes (%) (Auto) 16.5L, Monocytes (%) (Auto) 4.5, Eosinophils (%) (Auto) 1.8, Basophils (%) (Auto) 1.7 Height (Feet): 5 Height (Inches): 8.00 Weight (Pounds): 125 Objective Thin NAD NCAT supple CTA RR soft ND no edema, (+) skin redness on thighs Cara Berkowitz MD Oct 28, 2018 23:26
[2018-10-29] VITALS: BP 128/79
[2018-10-29] MEDS: HYDROcodone/Acetamin 10/325 tab ORAL PRN ×5 (03:08→22:00)
[2018-10-29 04:00] VITALS: BP 139/84
[2018-10-29] MEDS: Levothyroxine 25mcg tab ORAL SCH (06:17)
[2018-10-29] MEDS: HydrALAZINE 25mg tab ORAL SCH ×3 (06:18→22:01)
[2018-10-29 08:00] VITALS: BP 136/72
[2018-10-29] MEDS: Thiamine 100mg tab ORAL SCH (08:21)
[2018-10-29] MEDS: Carvedilol 25mg Tab ORAL SCH ×2 (08:22→21:59)
[2018-10-29] MEDS: Nephrovite tab (Rena-Vite) ORAL SCH (08:22)
[2018-10-29] MEDS: Docusate 100mg cap ORAL SCH ×3 (08:23→17:32)
[2018-10-29] MEDS: Heparin 5000 units/ml inj SUBQ SCH ×2 (09:00→21:00)
[2018-10-29 12:00] VITALS: BP 143/79
--- NOTE | 2018-10-29 13:11 | Nephrology Progress Note ---
Assessment/Plan Problem List: (1) Cardiomyopathy (2) ESRD on dialysis (3) Bacteremia (4) Homeless (5) Leukocytosis Assessment: strep bacteremia Assessment ESRD- Cardiomyopathy Anemia of CKD Hyperkalemia Leukocytosis, ? Line infection FTT (failure to thrive) in adult- malnutrition Homeless Plan stop lisinopril- kayexelate po as needed HD in am 10/30 on hydralazine up dose coreg Folate- po Phos binders 2D echo Septal hypokinesis.mid to distal Inferior wall hypokinesis Left ventricular ejection fraction estimated to be 40%. DC planning Subjective ROS Limited/Unobtainable: No Constitutional: Reports: malaise Objective Objective Last 24 Hour Vital Signs Date Time Temp Pulse Resp B/P (MAP) Pulse Ox O2 Delivery O2 Flow Rate FiO2 10/29/18 12:00 97.9 78 18 143/79 (100) 97 10/29/18 08:53 97.2 10/29/18 08:22 83 136/72 10/29/18 08:21 83 136/72 10/29/18 08:00 97.6 83 18 136/72 (93) 95 10/29/18 06:18 139/84 10/29/18 04:00 97.2 65 18 139/84 (102) 95 10/29/18 00:00 97.7 66 19 128/79 (95) 94 10/28/18 21:14 161/84 10/28/18 21:13 78 161/84 10/28/18 21:00 Room Air 10/28/18 20:00 97.6 75 17 151/82 (105) 98 10/28/18 16:00 98.9 75 20 145/78 (100) 96 10/28/18 13:31 138/72 Intake and Output 10/28/18 10/29/18 19:00 07:00 Intake Total 800 ml 240 ml Output Total 2185 ml 200 ml Balance -1385 ml 40 ml Intake Oral 800 ml 240 ml Output Urine Total 185 ml 200 ml Hemodialysis UF 2000 ml # Voids 1 1 # Bowel Movements 1 Current Medications Medications (Trade) Dose Ordered Sig/Mary [place] Route PRN Reason Start Time Stop Time Status Last Admin Dose Admin Acetaminophen (Tylenol) 650 mg Q6H PRN ORAL Mild Pain/Temp > 100.5 10/04/18 23:30 11/03/18 23:29 Acetaminophen/ Hydrocodone Bitart ([place] 10/325) 1 tab Q4H PRN ORAL Severe Pain (Pain Scale 7-10) 10/26/18 19:45 11/02/18 19:44 10/29/18 08:23 Amlodipine Besylate (Norvasc) 5 mg DAILY ORAL 10/24/18 09:00 11/23/18 08:59 10/29/18 08:21 Carvedilol (Coreg) 25 mg EVERY 12 HOURS ORAL 10/22/18 21:00 11/11/18 20:59 10/29/18 08:22 Docusate Sodium (Colace) 100 mg THREE TIMES A DAY ORAL 10/05/18 13:00 11/04/18 12:59 10/25/18 12:48 Epoetin David (Procrit (for ESRD on dialysis)) 10,000 units THU-THU-THU SUBQ 10/08/18 21:00 11/07/18 20:59 10/27/18 21:36 Fluoxetine HCl (PROzac) 20 mg DAILY ORAL 10/13/18 09:00 11/12/18 08:59 10/29/18 08:21 Folic Acid (Folate) 1 mg DAILY ORAL 10/28/18 09:00 11/04/18 11:03 10/29/18 08:22 Heparin Sodium (Porcine) (Heparin 5000 units/ml) 5,000 units EVERY 12 HOURS SUBQ 10/05/18 09:00 11/04/18 08:59 10/28/18 21:16 Hydralazine HCl (Apresoline) 25 mg Q8HR ORAL 10/27/18 14:00 11/26/18 13:59 10/29/18 06:18 Levothyroxine Sodium (Synthroid) 25 mcg DAILY@0630 ORAL 10/06/18 06:30 11/05/18 06:29 10/29/18 06:17 Mirtazapine (Remeron) 15 mg BEDTIME ORAL 10/20/18 21:00 11/19/18 20:59 10/28/18 21:13 Olanzapine (ZyPREXA) 30 mg BEDTIME ORAL 10/25/18 21:00 11/24/18 20:59 10/28/18 21:13 Ondansetron HCl (Zofran) 4 mg Q4HR PRN IVP Nausea & Vomiting 10/04/18 23:30 11/03/18 23:29 Pantoprazole (Protonix) 40 mg DAILY ORAL 10/05/18 11:02 11/04/18 11:01 10/29/18 08:21 Sevelamer Carbonate (Renvela) 1,600 mg THREE TIMES A DAY ORAL 10/06/18 18:00 11/04/18 12:59 10/29/18 08:22 Thiamine HCl (Vitamin B1) 100 mg DAILY ORAL 10/10/18 10:00 11/09/18 09:59 10/29/18 08:21 Vitamin B Complex/ Vit C/Folic Acid (Nephrovite) 1 tab DAILY ORAL 10/06/18 09:00 11/05/18 08:59 10/29/18 08:22 Height (Feet): 5 Height (Inches): 8.00 Weight (Pounds): 119 General Appearance: no apparent distress Objective no change David Meyers MD Oct 29, 2018 13:11
[2018-10-29 16:00] VITALS: BP 130/88
--- NOTE | 2018-10-29 16:18 | General Progress Note ---
Assessment/Plan Problem List: (1) Hepatitis C ICD Codes: B19.20 - Unspecified viral hepatitis C without hepatic coma SNOMED: 49982989 (2) Anemia ICD Codes: D64.9 - Anemia, unspecified SNOMED: 803415096 (3) Dialysis patient ICD Codes: Z99.2 - Dependence on renal dialysis SNOMED: 721050756 (4) FTT (failure to thrive) in adult ICD Codes: R62.7 - Adult failure to thrive SNOMED: 445919935 (5) Cellulitis ICD Codes: L03.90 - Cellulitis, unspecified SNOMED: 781334416 Qualifiers: Qualified Codes: L03.116 - Cellulitis of left lower limb (6) Leukocytosis ICD Codes: D72.829 - Elevated white blood cell count, unspecified SNOMED: 779996421, 348605561 (7) Homeless ICD Codes: Z59.0 - Homelessness SNOMED: 77619900, 811488827 (8) Missed dialysis SNOMED: 118794139 (9) CHF (congestive heart failure) ICD Codes: I50.9 - Heart failure, unspecified SNOMED: 72329859 (10) Bacteremia ICD Codes: R78.81 - Bacteremia SNOMED: 6703989 Status: stable Assessment/Plan ASSESSMENT: The patient is a 62-year-old homeless male with a history of IV drug use; hepatitis C; hepatopathy; end-stage renal disease, on dialysis via tunneled cath; and noncompliance with missed dialysis, presenting with weakness, failure to thrive, and likely infection with leukocytosis and systemic inflammatory response syndrome/sepsis PROBLEM LIST: 1. End-stage renal disease, status post missed dialysis via PermCath. 2. Anemia, acute on chronic, with evidence of iron deficiency. 3. Hepatitis C. 4. Left thigh wound, imaging at [facility] reviewed. No evidence of abscess. 5. IV drug use. 6. Homelessness. 7. Systemic inflammatory response syndrome/sepsis 8. Leukocytosis. 9. Hypothyroidism 10. GPC bacteremia, likely contaminant 11. CHF with systolic dysfunction TREATMENT PLAN: 1. Off Abx 2. Monitor labs 3. HD per renal 4. Surgery recs/wound care 5. BP management 6. Monitor hemoglobin and hematocrit, transfuse PRN Hb < 7 7. F/U GI and heme recs 8. F/U cardiology recs, medical management of CHF, ischemia eval at some point 9. Social work working on placement 10. Pain control/supportive care. 11. Continue Synthroid 12. Multivitamins, thiamine, and folate. 13. DVT prophylaxis, heparin subcutaneous. 14. Diabetic renal diet. 15. The patient is a Full Code. 16. Psych recs Subjective Allergies: Coded Allergies: No Known Allergies (Unverified , 10/04/18) Subjective NITESH, BP stable, AFVSS Dispo planning underway Cartography Teacher notes reviewed No F/C/CP/SOB/N/V/D Objective Last 24 Hour Vital Signs Date Time Temp Pulse Resp B/P (MAP) Pulse Ox O2 Delivery O2 Flow Rate FiO2 10/29/18 13:56 97.9 10/29/18 13:26 143/79 10/29/18 12:00 97.9 78 18 143/79 (100) 97 10/29/18 08:22 83 136/72 10/29/18 08:21 83 136/72 10/29/18 08:00 97.6 83 18 136/72 (93) 95 10/29/18 06:18 139/84 10/29/18 04:00 97.2 65 18 139/84 (102) 95 10/29/18 00:00 97.7 66 19 128/79 (95) 94 10/28/18 21:14 161/84 10/28/18 21:13 78 161/84 10/28/18 21:00 Room Air 10/28/18 20:00 97.6 75 17 151/82 (105) 98 Intake and Output 10/28/18 10/29/18 19:00 07:00 Intake Total 800 ml 240 ml Output Total 2185 ml 200 ml Balance -1385 ml 40 ml Intake Oral 800 ml 240 ml Output Urine Total 185 ml 200 ml Hemodialysis UF 2000 ml # Voids 1 1 # Bowel Movements 1 Height (Feet): 5 Height (Inches): 8.00 Weight (Pounds): 119 General Appearance: no apparent distress, cachetic EENT: PERRL/EOMI, normal ENT inspection, TMs normal Neck: non-tender, normal alignment, supple, normal inspection Cardiovascular: normal peripheral pulses, normal rate, regular rhythm Respiratory/Chest: chest wall non-tender, lungs clear, normal breath sounds, no respiratory distress, no accessory muscle use Abdomen: normal bowel sounds, non tender, soft, no organomegaly, no mass Edema: no edema noted Arm (L), no edema noted Arm (R), no edema noted Leg (L), no edema noted Leg (R), no edema noted Pedal (L), no edema noted Pedal (R), no edema noted Generalized Michael Coleman MD Oct 29, 2018 16:18
[2018-10-29 20:00] VITALS: BP 134/73
--- NOTE | 2018-10-29 21:04 | General Progress Note ---
Assessment/Plan Assessment/Plan #. Anemia of kidney disease/esrd -- anemia panel reviewed, has end-stage renal disease, status post missed dialysis via PermCath. --> transfuse on prn basis, if hgb <7 --> no evidence for hemolysis noted --> do not recommend iron at this time --> cont po folic acid and thiamine daily --> HD on permacath R arm --> getting epogen since hd and esrd, also vit b/folic acid --> hemoglobin electrophoresis is normal, no sickle cell trait noted --> no indication for iv iron --> hgb 7.7-->7.6-->7.8-->8.2-->8.6 #. Thrombocytopenia due to underlying Hepatitis C. has been chronic --> Trend 200s-->134k --> afp 2.1, and trend plts as needed --> peripheral smear reviewed --> on abx as per ID #. Leukocytosis likely due to infection. --> Improved/Resolved --> completed IV abx #. Left thigh wound, imaging at [facility] reviewed. No evidence of abscess. --> completed abx as per id --> skin protectant per surg #. IV drug use. #. Homelessness. #. Systemic inflammatory response syndrome. #. Hypothyroidism. #. Hep C -- outpatient eradication #. ESRD on hd 3x a week #. DVT ppx with heparin sq GREATLY APPRECIATE CONSULTATION. Subjective HEENT: Denies: no symptoms, eye pain, blurred vision, tearing, double vision, ear pain, ear discharge, nose pain, nose congestion, throat pain, throat swelling, mouth pain, mouth swelling, other Cardiovascular: Denies: no symptoms, chest pain, edema, irregular heart rate, lightheadedness, palpitations, syncope, other Respiratory: Denies: no symptoms, cough, orthopnea, shortness of breath, SOB with excertion, SOB at rest, sputum, stridor, wheezing, other Gastrointestinal/Abdominal: Denies: no symptoms, abdomen distended, abdominal pain, black stools, tarry stools, blood in stool, constipated, diarrhea, difficulty swallowing, nausea, poor appetite, poor fluid intake, rectal bleeding , vomiting, other Genitourinary: Denies: no symptoms, burning, discharge, frequency, flank pain, hematuria, incontinence, pain, urgency, other Neurologic/Psychiatric: Denies: no symptoms, anxiety, depressed, emotional problems, headache, numbness, paresthesia, pre-existing deficit, seizure, tingling, tremors, weakness, other Endocrine: Denies: no symptoms, excessive sweating, flushing, intolerance to cold, intolerance to heat, increased hunger, increased thirst, increased urine, unexplained weight gain, unexplained weight loss, other Allergies: Coded Allergies: No Known Allergies (Unverified , 10/04/18) Subjective Pt awake and alert. No acute events. HD for today. H/H stable. 10/25: no further iv iron indicated 10/26: blood cultures pending, remains tired, on epo, no EGD/Colon as per patient wishes 10/27: no events noted 10/28: no events, no complaints, relays being in pain, wants pain meds 10/29 hd tomorrow planned Objective Last 24 Hour Vital Signs Date Time Temp Pulse Resp B/P (MAP) Pulse Ox O2 Delivery O2 Flow Rate FiO2 10/29/18 20:00 98.0 74 16 134/73 (93) 96 10/29/18 18:01 97.9 10/29/18 16:00 97.9 71 18 130/88 (102) 97 10/29/18 13:26 143/79 10/29/18 12:00 97.9 78 18 143/79 (100) 97 10/29/18 09:00 Room Air 10/29/18 08:22 83 136/72 10/29/18 08:21 83 136/72 10/29/18 08:00 97.6 83 18 136/72 (93) 95 10/29/18 06:18 139/84 10/29/18 04:00 97.2 65 18 139/84 (102) 95 10/29/18 00:00 97.7 66 19 128/79 (95) 94 10/28/18 21:14 161/84 10/28/18 21:13 78 161/84 Intake and Output 10/28/18 10/29/18 19:00 07:00 Intake Total 800 ml 240 ml Output Total 2185 ml 200 ml Balance -1385 ml 40 ml Intake Oral 800 ml 240 ml Output Urine Total 185 ml 200 ml Hemodialysis UF 2000 ml # Voids 1 1 # Bowel Movements 1 Height (Feet): 5 Height (Inches): 8.00 Weight (Pounds): 119 Objective PHYSICAL EXAMINATION: GENERAL: elderly cachectic-looking gentleman in no respiratory distress NECK: Supple. No jugular venous distention. LUNGS: Ctab, Less coughing CARDIAC: Regular rhythm. holosystolic regurgitant murmur ++ ABDOMEN: Soft and not. ++ bowel sounds. EXTREMITIES: There is no clubbing, no cyanosis. There is no edema. Back: He has extensive ischemic changes in the skin in the inner thigh on both legs with eschar formation. Gordo Jang MD Oct 29, 2018 21:04
[2018-10-29] MEDS: Epogen (for ESRD on dialysis) SUBQ SCH (22:01)
--- NOTE | 2018-10-29 22:16 | General Progress Note ---
Assessment/Plan Problem List: (1) Schizophrenia ICD Codes: F20.9 - Schizophrenia, unspecified SNOMED: 68666348 Assessment/Plan Zyprexa 30mg po qhs Remeron 15mg qhs provided ro/st Subjective Neurologic/Psychiatric: Reports: anxiety, depressed, emotional problems Allergies: Coded Allergies: No Known Allergies (Unverified , 10/04/18) Subjective denies AH Objective Last 24 Hour Vital Signs Date Time Temp Pulse Resp B/P (MAP) Pulse Ox O2 Delivery O2 Flow Rate FiO2 10/29/18 22:01 134/73 10/29/18 21:59 74 134/73 10/29/18 20:00 98.0 74 16 134/73 (93) 96 10/29/18 18:01 97.9 10/29/18 16:00 97.9 71 18 130/88 (102) 97 10/29/18 13:26 143/79 10/29/18 12:00 97.9 78 18 143/79 (100) 97 10/29/18 09:00 Room Air 10/29/18 08:22 83 136/72 10/29/18 08:21 83 136/72 10/29/18 08:00 97.6 83 18 136/72 (93) 95 10/29/18 06:18 139/84 10/29/18 04:00 97.2 65 18 139/84 (102) 95 10/29/18 00:00 97.7 66 19 128/79 (95) 94 Intake and Output 10/28/18 10/29/18 19:00 07:00 Intake Total 800 ml 240 ml Output Total 2185 ml 200 ml Balance -1385 ml 40 ml Intake Oral 800 ml 240 ml Output Urine Total 185 ml 200 ml Hemodialysis UF 2000 ml # Voids 1 1 # Bowel Movements 1 Height (Feet): 5 Height (Inches): 8.00 Weight (Pounds): 119 General Appearance: alert, cachetic Neurologic: oriented x 3, responsive, depressed affect Minal Nuñez MD Oct 29, 2018 22:16
[2018-10-29] MEDS: OLANZapine 10mg tab ORAL SCH (22:33)
[2018-10-30] VITALS: BP 123/70
[2018-10-30 04:00] VITALS: BP 131/75
[2018-10-30] MEDS: HYDROcodone/Acetamin 10/325 tab ORAL PRN ×4 (04:59→20:07)
[2018-10-30] MEDS: HydrALAZINE 25mg tab ORAL SCH ×3 (06:02→20:08)
[2018-10-30] MEDS: Levothyroxine 25mcg tab ORAL SCH (06:02)
[2018-10-30 08:00] VITALS: BP 121/70
[2018-10-30] MEDS: Thiamine 100mg tab ORAL SCH (08:30)
[2018-10-30] MEDS: Carvedilol 25mg Tab ORAL SCH ×2 (08:32→20:08)
[2018-10-30] MEDS: Nephrovite tab (Rena-Vite) ORAL SCH (08:32)
[2018-10-30] MEDS: Heparin 5000 units/ml inj SUBQ SCH ×2 (08:36→20:13)
[2018-10-30] MEDS: Docusate 100mg cap ORAL SCH ×3 (09:00→16:58)
[2018-10-30 11:58] VITALS: BP 116/64
--- NOTE | 2018-10-30 14:25 | Nephrology Progress Note ---
Assessment/Plan Problem List: (1) Cardiomyopathy (2) ESRD on dialysis (3) Bacteremia (4) Homeless (5) Leukocytosis Assessment: strep bacteremia Assessment ESRD- Cardiomyopathy Anemia of CKD Hyperkalemia Leukocytosis, ? Line infection FTT (failure to thrive) in adult- malnutrition Homeless Plan stop lisinopril- kayexelate po as needed HD in am 10/30 in process on hydralazine up dose coreg Folate- po Phos binders 2D echo Septal hypokinesis.mid to distal Inferior wall hypokinesis Left ventricular ejection fraction estimated to be 40%. DC planning Subjective ROS Limited/Unobtainable: No Constitutional: Reports: malaise Objective Objective Last 24 Hour Vital Signs Date Time Temp Pulse Resp B/P (MAP) Pulse Ox O2 Delivery O2 Flow Rate FiO2 10/30/18 13:55 Room Air 10/30/18 13:50 Room Air 10/30/18 13:19 116/64 10/30/18 11:58 97.7 67 20 116/64 (81) 95 10/30/18 09:42 97.8 10/30/18 09:00 Room Air 10/30/18 08:32 73 121/70 10/30/18 08:31 73 121/70 10/30/18 08:00 97.9 73 20 121/70 (87) 97 10/30/18 06:02 131/75 10/30/18 04:00 97.8 71 18 131/75 (93) 96 10/30/18 00:00 97.3 65 17 123/70 (87) 99 10/29/18 22:01 134/73 10/29/18 21:59 74 134/73 10/29/18 21:00 Room Air 10/29/18 20:00 98.0 74 16 134/73 (93) 96 10/29/18 16:00 97.9 71 18 130/88 (102) 97 Intake and Output 10/29/18 10/30/18 19:00 07:00 Intake Total 680 ml Output Total 325 ml 375 ml Balance 355 ml -375 ml Intake Oral 680 ml Output Urine Total 325 ml 375 ml # Voids 3 2 # Bowel Movements 2 Height (Feet): 5 Height (Inches): 8.00 Weight (Pounds): 125 General Appearance: no apparent distress Objective no change David Meyers MD Oct 30, 2018 14:25
--- NOTE | 2018-10-30 15:30 | General Progress Note ---
Assessment/Plan Status: stable Assessment/Plan #. Anemia of kidney disease/esrd -- anemia panel reviewed, has end-stage renal disease, status post missed dialysis via PermCath. --> transfuse on prn basis, if hgb <7 --> no evidence for hemolysis noted --> do not recommend iron at this time --> cont po folic acid and thiamine daily --> HD on permacath R arm --> getting epogen since hd and esrd, also vit b/folic acid --> hemoglobin electrophoresis is normal, no sickle cell trait noted --> no indication for iv iron --> hgb 7.7-->7.6-->7.8-->8.2-->8.6 #. Thrombocytopenia due to underlying Hepatitis C. has been chronic --> Trend 200s-->134k --> afp 2.1, and trend plts as needed --> peripheral smear reviewed --> on abx as per ID #. Leukocytosis likely due to infection. --> Improved/Resolved --> completed IV abx #. Left thigh wound, imaging at [facility] reviewed. No evidence of abscess. --> completed abx as per id --> skin protectant per surg #. IV drug use. #. Homelessness. #. Systemic inflammatory response syndrome. #. Hypothyroidism. #. Hep C -- outpatient eradication #. ESRD on hd 3x a week #. DVT ppx with heparin sq GREATLY APPRECIATE CONSULTATION. Subjective Date patient seen: Oct 30, 2018 Hematologic/Lymphatic: Reports: anemia Allergies: Coded Allergies: No Known Allergies (Unverified , 10/04/18) All Systems: reviewed and negative except above Subjective Pt awake and alert. No acute events. HD for today. H/H stable. 10/25: no further iv iron indicated 10/26: blood cultures pending, remains tired, on epo, no EGD/Colon as per patient wishes 10/27: no events noted 10/28: no events, no complaints, relays being in pain, wants pain meds 10/29 hd tomorrow planned 10/30: Pt awake and alert. No acute events. HD for today. Objective Last 24 Hour Vital Signs Date Time Temp Pulse Resp B/P (MAP) Pulse Ox O2 Delivery O2 Flow Rate FiO2 12/29/18 14:13 97.7 10/30/18 13:55 Room Air 10/30/18 13:50 Room Air 10/30/18 13:19 116/64 10/30/18 11:58 97.7 67 20 116/64 (81) 95 10/30/18 09:00 Room Air 10/30/18 08:32 73 121/70 10/30/18 08:31 73 121/70 10/30/18 08:00 97.9 73 20 121/70 (87) 97 10/30/18 06:02 131/75 10/30/18 04:00 97.8 71 18 131/75 (93) 96 10/30/18 00:00 97.3 65 17 123/70 (87) 99 10/29/18 22:01 134/73 10/29/18 21:59 74 134/73 10/29/18 21:00 Room Air 10/29/18 20:00 98.0 74 16 134/73 (93) 96 10/29/18 16:00 97.9 71 18 130/88 (102) 97 Intake and Output 10/29/18 10/30/18 19:00 07:00 Intake Total 680 ml Output Total 325 ml 375 ml Balance 355 ml -375 ml Intake Oral 680 ml Output Urine Total 325 ml 375 ml # Voids 3 2 # Bowel Movements 2 Height (Feet): 5 Height (Inches): 8.00 Weight (Pounds): 125 Objective PHYSICAL EXAMINATION: GENERAL: elderly cachectic-looking gentleman in no respiratory distress NECK: Supple. No jugular venous distention. LUNGS: Ctab, Less coughing CARDIAC: Regular rhythm. holosystolic regurgitant murmur ++ ABDOMEN: Soft and not. ++ bowel sounds. EXTREMITIES: There is no clubbing, no cyanosis. There is no edema. Back: He has extensive ischemic changes in the skin in the inner thigh on both legs with eschar formation. Gordo Jang MD Oct 30, 2018 15:30
[2018-10-30 16:00] VITALS: BP 122/76
--- NOTE | 2018-10-30 18:01 | General Progress Note ---
Assessment/Plan Assessment/Plan Assessment - Anemia, multifactorial - Hepatitis C - Patient declines EGD/Colon - ESRD / HD - malnutrition - poor senior living prognosis Recommendations - EPO - PPI - follow labs - push po - no EGD/Colon , per patient wishes - can consider HCV eradication at later date Subjective Allergies: Coded Allergies: No Known Allergies (Unverified , 10/04/18) Subjective Feels same no abdominal symptoms appetite good Objective Last 24 Hour Vital Signs Date Time Temp Pulse Resp B/P (MAP) Pulse Ox O2 Delivery O2 Flow Rate FiO2 10/30/18 16:00 98.0 66 18 122/76 (91) 99 10/30/18 14:13 97.7 10/30/18 13:55 Room Air 10/30/18 13:50 Room Air 10/30/18 13:19 116/64 10/30/18 11:58 97.7 67 20 116/64 (81) 95 10/30/18 09:00 Room Air 10/30/18 08:32 73 121/70 10/30/18 08:31 73 121/70 10/30/18 08:00 97.9 73 20 121/70 (87) 97 10/30/18 06:02 131/75 10/30/18 04:00 97.8 71 18 131/75 (93) 96 10/30/18 00:00 97.3 65 17 123/70 (87) 99 10/29/18 22:01 134/73 10/29/18 21:59 74 134/73 10/29/18 21:00 Room Air 10/29/18 20:00 98.0 74 16 134/73 (93) 96 Intake and Output 10/29/18 10/30/18 19:00 07:00 Intake Total 680 ml Output Total 325 ml 375 ml Balance 355 ml -375 ml Intake Oral 680 ml Output Urine Total 325 ml 375 ml # Voids 3 2 # Bowel Movements 2 Height (Feet): 5 Height (Inches): 8.00 Weight (Pounds): 125 Objective Thin NAD NCAT supple CTA RR soft ND no edema Cara Berkowitz MD Oct 30, 2018 18:01
[2018-10-30 20:00] VITALS: BP 138/78
--- NOTE | 2018-10-30 20:01 | Pulmonology Progress Note ---
Assessment/Plan Assessment/Plan PROBLEM LIST: 1. End-stage renal disease, status post missed dialysis via PermCath. 2. Anemia, acute on chronic, with evidence of iron deficiency. 3. Hepatitis C. 4. Left thigh wound, imaging at [facility] reviewed. No evidence of abscess. 5. IV drug use. 6. Homelessness. 7. Systemic inflammatory response syndrome/sepsis 8. Leukocytosis. 9. Hypothyroidism 10. GPC bacteremia, likely contaminant 11. CHF with systolic dysfunction TREATMENT PLAN: 1. Cefepime/Vanco per ID, D/W Dr. Herrera, will continue IV Abx while in house and D/C on PO 2. encouarge PO 3. HD per renal 4. Surgery recs 5. wound care 6. Monitor hemoglobin and hematocrit, transfuse PRN Hb < 7, IV iron D/C 'd 2/2 elevated ferritin, on EPO 10. Pain control/supportive care. 11. Continue Synthroid 12. Multivitamins, thiamine, and folate. 13. DVT prophylaxis, heparin subcutaneous. 14. Diabetic renal diet. 15. The patient is a Full Code. Subjective Constitutional: Reports: no symptoms HEENT: Repors: no symptoms Musculoskeletal: Reports: pain Allergies: Coded Allergies: No Known Allergies (Unverified , 10/04/18) Subjective still weak and less ill appearing tolerating po getting oob to wc no cp nv or bleeding no fever HD today no drainage noted Objective Last 24 Hour Vital Signs Date Time Temp Pulse Resp B/P (MAP) Pulse Ox O2 Delivery O2 Flow Rate FiO2 10/30/18 16:00 98.0 66 18 122/76 (91) 99 10/30/18 14:13 97.7 10/30/18 13:55 Room Air 10/30/18 13:50 Room Air 10/30/18 13:19 116/64 10/30/18 11:58 97.7 67 20 116/64 (81) 95 10/30/18 09:00 Room Air 10/30/18 08:32 73 121/70 10/30/18 08:31 73 121/70 10/30/18 08:00 97.9 73 20 121/70 (87) 97 10/30/18 06:02 131/75 10/30/18 04:00 97.8 71 18 131/75 (93) 96 10/30/18 00:00 97.3 65 17 123/70 (87) 99 10/29/18 22:01 134/73 10/29/18 21:59 74 134/73 10/29/18 21:00 Room Air Intake and Output 10/29/18 10/30/18 19:00 07:00 Intake Total 680 ml Output Total 325 ml 375 ml Balance 355 ml -375 ml Intake Oral 680 ml Output Urine Total 325 ml 375 ml # Voids 3 2 # Bowel Movements 2 General Appearance: cachetic HEENT: atraumatic, anicteric Respiratory/Chest: lungs clear Cardiovascular: normal rate, regularly irregular Abdomen: no organomegaly Neurologic/Psychiatric: alert, oriented x 3 Current Medications Medications (Trade) Dose Ordered Sig/[place] Route PRN Reason Start Time Stop Time Status Last Admin Dose Admin Acetaminophen (Tylenol) 650 mg Q6H PRN ORAL Mild Pain/Temp > 100.5 10/04/18 23:30 11/03/18 23:29 Acetaminophen/ Hydrocodone Bitart ([place] 10/325) 1 tab Q4H PRN ORAL Severe Pain (Pain Scale 7-10) 10/26/18 19:45 11/02/18 19:44 10/30/18 13:43 Amlodipine Besylate (Norvasc) 5 mg DAILY ORAL 10/24/18 09:00 11/23/18 08:59 10/30/18 08:31 Carvedilol (Coreg) 25 mg EVERY 12 HOURS ORAL 10/22/18 21:00 11/11/18 20:59 10/30/18 08:32 Docusate Sodium (Colace) 100 mg THREE TIMES A DAY ORAL 10/05/18 13:00 11/04/18 12:59 10/25/18 12:48 Epoetin David (Procrit (for ESRD on dialysis)) 10,000 units THU-THU-THU SUBQ 10/08/18 21:00 11/07/18 20:59 10/29/18 22:01 Fluoxetine HCl (PROzac) 20 mg DAILY ORAL 10/13/18 09:00 11/12/18 08:59 10/30/18 08:30 Folic Acid (Folate) 1 mg DAILY ORAL 10/28/18 09:00 11/04/18 11:03 10/30/18 08:32 Heparin Sodium (Porcine) (Heparin 5000 units/ml) 5,000 units EVERY 12 HOURS SUBQ 10/05/18 09:00 11/04/18 08:59 10/28/18 21:16 Hydralazine HCl (Apresoline) 25 mg Q8HR ORAL 10/27/18 14:00 11/26/18 13:59 10/30/18 06:02 Levothyroxine Sodium (Synthroid) 25 mcg DAILY@0630 ORAL 10/06/18 06:30 11/05/18 06:29 10/30/18 06:02 Mirtazapine (Remeron) 15 mg BEDTIME ORAL 10/20/18 21:00 11/19/18 20:59 10/29/18 22:00 Olanzapine (ZyPREXA) 30 mg BEDTIME ORAL 10/25/18 21:00 11/24/18 20:59 10/29/18 22:33 Ondansetron HCl (Zofran) 4 mg Q4HR PRN IVP Nausea & Vomiting 10/04/18 23:30 11/03/18 23:29 Pantoprazole (Protonix) 40 mg DAILY ORAL 10/05/18 11:02 11/04/18 11:01 10/30/18 08:30 Sevelamer Carbonate (Renvela) 1,600 mg THREE TIMES A DAY ORAL 10/06/18 18:00 11/04/18 12:59 10/30/18 16:58 Thiamine HCl (Vitamin B1) 100 mg DAILY ORAL 10/10/18 10:00 11/09/18 09:59 10/30/18 08:30 Vitamin B Complex/ Vit C/Folic Acid (Nephrovite) 1 tab DAILY ORAL 10/06/18 09:00 11/05/18 08:59 10/30/18 08:32 Saige Wilde DO Oct 30, 2018 20:01
[2018-10-30] MEDS: OLANZapine 10mg tab ORAL SCH (21:00)
[2018-10-31] VITALS: BP 134/79
[2018-10-31] MEDS: HYDROcodone/Acetamin 10/325 tab ORAL PRN ×5 (03:17→21:07)
[2018-10-31] MEDS: OLANZapine 10mg tab ORAL SCH ×2 (03:47→21:18)
[2018-10-31 04:00] VITALS: BP 139/82
[2018-10-31] MEDS: Levothyroxine 25mcg tab ORAL SCH (06:24)
[2018-10-31] MEDS: HydrALAZINE 25mg tab ORAL SCH ×3 (06:24→21:06)
[2018-10-31 08:07] VITALS: BP 111/75
[2018-10-31 08:17] LABS: ALANINE AMINOTRANSFERASE 34 U/L (12-78); ALBUMIN 1.9 G/DL (3.4-5.0); ALBUMIN/GLOBULIN RATIO 0.4 (1.0-2.7); ALKALINE PHOSPHATASE 172 U/L (46-116); ANION GAP 7 mmol/L (5-15); ASPARTATE AMINO TRANSFERASE 23 U/L (15-37); BILIRUBIN,TOTAL 0.4 MG/DL (0.2-1.0); BLOOD UREA NITROGEN 70 mg/dL (7-18); CALCIUM 8.3 MG/DL (8.5-10.1); CARBON DIOXIDE 27 MMOL/L (21-32); CHLORIDE 101 MMOL/L (98-107); CREATININE 5.8 MG/DL (0.55-1.30); POTASSIUM 5.2 MMOL/L (3.5-5.1); SODIUM 135 MMOL/L (136-145)
[2018-10-31] MEDS: Thiamine 100mg tab ORAL SCH (08:29)
[2018-10-31] MEDS: Carvedilol 25mg Tab ORAL SCH ×2 (08:30→21:06)
[2018-10-31] MEDS: Docusate 100mg cap ORAL SCH ×3 (08:30→16:53)
[2018-10-31] MEDS: Nephrovite tab (Rena-Vite) ORAL SCH (08:30)
[2018-10-31] MEDS: Heparin 5000 units/ml inj SUBQ SCH ×2 (08:34→21:07)
--- NOTE | 2018-10-31 10:25 | Nephrology Progress Note ---
Assessment/Plan Problem List: (1) Cardiomyopathy (2) ESRD on dialysis (3) Bacteremia (4) Homeless (5) Leukocytosis Assessment: strep bacteremia Assessment ESRD- Cardiomyopathy Anemia of CKD Hyperkalemia Leukocytosis, ? Line infection FTT (failure to thrive) in adult- malnutrition Homeless Plan stop lisinopril- kayexelate po as needed HD 10/30 next 11/01 on hydralazine up dose coreg Folate- po Phos binders 2D echo Septal hypokinesis.mid to distal Inferior wall hypokinesis Left ventricular ejection fraction estimated to be 40%. DC planning Subjective ROS Limited/Unobtainable: No Objective Objective Last 24 Hour Vital Signs Date Time Temp Pulse Resp B/P (MAP) Pulse Ox O2 Delivery O2 Flow Rate FiO2 10/31/18 09:00 Room Air 10/31/18 08:59 97.0 10/31/18 08:30 71 111/75 10/31/18 08:30 71 111/75 10/31/18 08:07 97.0 71 18 111/75 (87) 97 10/31/18 06:24 137/80 10/31/18 04:00 97.7 74 18 139/82 (101) 98 10/31/18 00:00 98.1 73 18 134/79 (97) 97 10/30/18 21:00 Room Air 10/30/18 20:08 134/78 10/30/18 20:08 78 138/78 10/30/18 20:00 97.8 74 19 138/78 (98) 95 10/30/18 16:00 98.0 66 18 122/76 (91) 99 10/30/18 13:55 Room Air 10/30/18 13:50 Room Air 10/30/18 13:19 116/64 10/30/18 11:58 97.7 67 20 116/64 (81) 95 Intake and Output 10/30/18 10/31/18 19:00 07:00 Intake Total 700 ml Output Total 2000 ml 400 ml Balance -1300 ml -400 ml Intake Oral 700 ml Output Urine Total 400 ml Hemodialysis UF 2000 ml Current Medications Medications (Trade) Dose Ordered Sig/Mary Kay Route PRN Reason Start Time Stop Time Status Last Admin Dose Admin Acetaminophen (Tylenol) 650 mg Q6H PRN ORAL Mild Pain/Temp > 100.5 10/04/18 23:30 1/2/19 23:29 Acetaminophen/ Hydrocodone Bitart ([place] 10/325) 1 tab Q4H PRN ORAL Severe Pain (Pain Scale 7-10) 10/26/18 19:45 11/02/18 19:44 10/31/18 08:29 Amlodipine Besylate (Norvasc) 5 mg DAILY ORAL 10/24/18 09:00 11/23/18 08:59 10/31/18 08:30 Carvedilol (Coreg) 25 mg EVERY 12 HOURS ORAL 10/22/18 21:00 11/11/18 20:59 10/30/18 20:08 Docusate Sodium (Colace) 100 mg THREE TIMES A DAY ORAL 10/05/18 13:00 11/04/18 12:59 10/25/18 12:48 Epoetin David (Procrit (for ESRD on dialysis)) 10,000 units THU-THU-THU SUBQ 10/08/18 21:00 11/07/18 20:59 10/29/18 22:01 Fluoxetine HCl (PROzac) 20 mg DAILY ORAL 10/13/18 09:00 11/12/18 08:59 10/31/18 08:29 Folic Acid (Folate) 1 mg DAILY ORAL 10/28/18 09:00 11/04/18 11:03 10/31/18 08:30 Heparin Sodium (Porcine) (Heparin 5000 units/ml) 5,000 units EVERY 12 HOURS SUBQ 10/05/18 09:00 11/04/18 08:59 10/30/18 20:13 Hydralazine HCl (Apresoline) 25 mg Q8HR ORAL 10/27/18 14:00 11/26/18 13:59 10/31/18 06:24 Levothyroxine Sodium (Synthroid) 25 mcg DAILY@0630 ORAL 10/06/18 06:30 11/05/18 06:29 10/31/18 06:24 Mirtazapine (Remeron) 15 mg BEDTIME ORAL 10/20/18 21:00 11/19/18 20:59 10/30/18 20:06 Olanzapine (ZyPREXA) 30 mg BEDTIME ORAL 10/25/18 21:00 11/24/18 20:59 10/31/18 03:47 Ondansetron HCl (Zofran) 4 mg Q4HR PRN IVP Nausea & Vomiting 10/04/18 23:30 11/03/18 23:29 Pantoprazole (Protonix) 40 mg DAILY ORAL 10/05/18 11:02 11/04/18 11:01 10/31/18 08:29 Sevelamer Carbonate (Renvela) 1,600 mg THREE TIMES A DAY ORAL 10/06/18 18:00 11/04/18 12:59 10/31/18 08:30 Thiamine HCl (Vitamin B1) 100 mg DAILY ORAL 10/10/18 10:00 11/09/18 09:59 10/31/18 08:29 Vitamin B Complex/ Vit C/Folic Acid (Nephrovite) 1 tab DAILY ORAL 10/06/18 09:00 11/05/18 08:59 10/31/18 08:30 Laboratory Tests 10/31/18 06:05: Sodium Level 135L, Potassium Level 5.2H, Chloride Level 101, Carbon Dioxide Level 27, Anion Gap 7, Blood Urea Nitrogen 70H, Creatinine 5.8H, Estimat Glomerular Filtration Rate 9.9, Glucose Level 88, Calcium Level 8.3L, Total Bilirubin 0.4, Aspartate Amino Transf (AST/SGOT) 23, Alanine Aminotransferase ( ALT/SGPT) 34, Alkaline Phosphatase 172H, Total Protein 6.8, Albumin 1.9L, Globulin 4.9, Albumin/Globulin Ratio 0.4L Height (Feet): 5 Height (Inches): 8.00 Weight (Pounds): 125 General Appearance: no apparent distress Cardiovascular: normal rate Respiratory/Chest: lungs clear Abdomen: soft Objective no change David Meyers MD Oct 31, 2018 10:25
[2018-10-31 12:06] VITALS: BP_SYST 132; BP_SYST 133; BP_DIAS 80; BP_DIAS 82
--- NOTE | 2018-10-31 13:54 | General Progress Note ---
Assessment/Plan Assessment/Plan #. Anemia of kidney disease/esrd -- anemia panel reviewed, has end-stage renal disease, status post missed dialysis via PermCath. --> transfuse on prn basis, if hgb <7 --> no evidence for hemolysis noted --> do not recommend iron at this time --> cont po folic acid and thiamine daily --> HD on permacath R arm --> getting epogen since hd and esrd, also vit b/folic acid --> hemoglobin electrophoresis is normal, no sickle cell trait noted --> no indication for iv iron --> hgb 7.7-->7.6-->7.8-->8.2-->8.6 #. Thrombocytopenia due to underlying Hepatitis C. has been chronic --> Trend 200s-->134k --> afp 2.1, and trend plts as needed --> peripheral smear reviewed --> on abx as per ID #. Leukocytosis likely due to infection. --> Improved/Resolved --> completed IV abx #. Left thigh wound, imaging at [facility] reviewed. No evidence of abscess. --> completed abx as per id --> skin protectant per surg #. IV drug use. #. Homelessness. #. Systemic inflammatory response syndrome. #. Hypothyroidism. #. Hep C -- outpatient eradication #. ESRD on hd 3x a week #. DVT ppx with heparin sq GREATLY APPRECIATE CONSULTATION. Subjective Constitutional: Denies: no symptoms, chills, diaphoresis, fever, malaise, weakness, other HEENT: Denies: no symptoms, eye pain, blurred vision, tearing, double vision, ear pain, ear discharge, nose pain, nose congestion, throat pain, throat swelling, mouth pain, mouth swelling, other Cardiovascular: Denies: no symptoms, chest pain, edema, irregular heart rate, lightheadedness, palpitations, syncope, other Respiratory: Denies: no symptoms, cough, orthopnea, shortness of breath, SOB with excertion, SOB at rest, sputum, stridor, wheezing, other Gastrointestinal/Abdominal: Denies: no symptoms, abdomen distended, abdominal pain, black stools, tarry stools, blood in stool, constipated, diarrhea, difficulty swallowing, nausea, poor appetite, poor fluid intake, rectal bleeding , vomiting, other Neurologic/Psychiatric: Denies: no symptoms, anxiety, depressed, emotional problems, headache, numbness, paresthesia, pre-existing deficit, seizure, tingling, tremors, weakness, other Endocrine: Denies: no symptoms, excessive sweating, flushing, intolerance to cold, intolerance to heat, increased hunger, increased thirst, increased urine, unexplained weight gain, unexplained weight loss, other Hematologic/Lymphatic: Denies: no symptoms, anemia, easy bleeding, easy bruising, other Allergies: Coded Allergies: No Known Allergies (Unverified , 10/04/18) Subjective Pt awake and alert. No acute events. HD for today. H/H stable. 10/25: no further iv iron indicated 10/26: blood cultures pending, remains tired, on epo, no EGD/Colon as per patient wishes 10/27: no events noted 10/28: no events, no complaints, relays being in pain, wants pain meds 10/29 hd tomorrow planned 10/30: Pt awake and alert. No acute events. HD for today. 10/31: no events, seen by renal, pending HD for tomorrow, has been noncompliant Objective Last 24 Hour Vital Signs Date Time Temp Pulse Resp B/P (MAP) Pulse Ox O2 Delivery O2 Flow Rate FiO2 10/31/18 13:06 97.3 10/31/18 12:06 97.3 76 17 132/80 (97) 98 10/31/18 09:00 Room Air 10/31/18 08:30 71 111/75 10/31/18 08:30 71 111/75 10/31/18 08:07 97.0 71 18 111/75 (87) 97 10/31/18 06:24 137/80 10/31/18 04:00 97.7 74 18 139/82 (101) 98 10/31/18 00:00 98.1 73 18 134/79 (97) 97 10/30/18 21:00 Room Air 10/30/18 20:08 134/78 10/30/18 20:08 78 138/78 10/30/18 20:00 97.8 74 19 138/78 (98) 95 10/30/18 16:00 98.0 66 18 122/76 (91) 99 10/30/18 13:55 Room Air Intake and Output 10/30/18 10/31/18 19:00 07:00 Intake Total 700 ml Output Total 2000 ml 400 ml Balance -1300 ml -400 ml Intake Oral 700 ml Output Urine Total 400 ml Hemodialysis UF 2000 ml Laboratory Tests 10/31/18 06:05: Sodium Level 135L, Potassium Level 5.2H, Chloride Level 101, Carbon Dioxide Level 27, Anion Gap 7, Blood Urea Nitrogen 70H, Creatinine 5.8H, Estimat Glomerular Filtration Rate 9.9, Glucose Level 88, Calcium Level 8.3L, Total Bilirubin 0.4, Aspartate Amino Transf (AST/SGOT) 23, Alanine Aminotransferase ( ALT/SGPT) 34, Alkaline Phosphatase 172H, Total Protein 6.8, Albumin 1.9L, Globulin 4.9, Albumin/Globulin Ratio 0.4L Height (Feet): 5 Height (Inches): 8.00 Weight (Pounds): 125 Objective PHYSICAL EXAMINATION: GENERAL: elderly cachectic-looking gentleman in no respiratory distress NECK: Supple. No jugular venous distention. LUNGS: Ctab, Less coughing CARDIAC: Regular rhythm. holosystolic regurgitant murmur ++ ABDOMEN: Soft and not. ++ bowel sounds. EXTREMITIES: There is no clubbing, no cyanosis. There is no edema. Back: He has extensive ischemic changes in the skin in the inner thigh on both legs with eschar formation. Gordo Jang MD Oct 31, 2018 13:54
[2018-10-31 14:43] LABS: BASOPHILS % (AUTO) 0.9 % (0.0-2.0); EOSINOPHILS % (AUTO) 2.9 % (0.0-3.0); HEMATOCRIT 30.5 % (42.0-52.0); HEMOGLOBIN 9.3 G/DL (14.2-18.0); LYMPHOCYTES % (AUTO) 22.8 % (20.0-45.0); MEAN CORPUSCULAR VOLUME 92 FL (80-99); MONOCYTES % (AUTO) 11.1 % (1.0-10.0); NEUTROPHILS % (AUTO) 62.4 % (45.0-75.0); PLATELET COUNT 153 K/UL (150-450); RED BLOOD COUNT 3.31 M/UL (4.70-6.10); WHITE BLOOD COUNT 9.9 K/UL (4.8-10.8)
[2018-10-31 15:50] VITALS: BP 135/75
--- NOTE | 2018-10-31 18:08 | Pulmonology Progress Note ---
Assessment/Plan Assessment/Plan PROBLEM LIST: 1. End-stage renal disease, status post missed dialysis via PermCath-resolved 2. Anemia, acute on chronic, with evidence of iron deficiency-stable 3. Hepatitis C. 4. Left thigh wound, imaging at [facility] reviewed. No evidence of abscess. 5. IV drug use. 6. Homelessness. 7. Systemic inflammatory response syndrome/sepsis-resovled 8. Leukocytosis-resolved 9. Hypothyroidism 10. GPC bacteremia, likely contaminant 11. CHF with systolic dysfunction TREATMENT PLAN: 1. abx per ID 2. encouarge PO 3. HD per renal 4. Surgery recs 5. wound care 6. Monitor hemoglobin and hematocrit, transfuse PRN Hb < 7, IV iron D/C 'd 2/2 elevated ferritin, on EPO 10. Pain control/supportive care. 11. Continue Synthroid 12. Multivitamins, thiamine, and folate. 13. DVT prophylaxis, heparin subcutaneous. 14. Diabetic renal diet. 15. The patient is a Full Code. 16 dc planning/placement Subjective Constitutional: Reports: no symptoms HEENT: Repors: no symptoms Respiratory: Reports: no symptoms Genitourinary: Reports: no symptoms Musculoskeletal: Reports: pain Allergies: Coded Allergies: No Known Allergies (Unverified , 10/04/18) Subjective no events noted over night still weak tolerating po getting oob to wc no cp nv or bleeding no fever no drainage noted Objective Last 24 Hour Vital Signs Date Time Temp Pulse Resp B/P (MAP) Pulse Ox O2 Delivery O2 Flow Rate FiO2 10/31/18 17:22 98.0 10/31/18 15:50 98.0 78 18 135/75 (95) 96 10/31/18 14:44 132/80 10/31/18 12:06 97.3 76 17 132/80 (97) 98 10/31/18 09:00 Room Air 10/31/18 08:30 71 111/75 10/31/18 08:30 71 111/75 10/31/18 08:07 97.0 71 18 111/75 (87) 97 10/31/18 06:24 137/80 10/31/18 04:00 97.7 74 18 139/82 (101) 98 10/31/18 00:00 98.1 73 18 134/79 (97) 97 10/30/18 21:00 Room Air 10/30/18 20:08 134/78 10/30/18 20:08 78 138/78 10/30/18 20:00 97.8 74 19 138/78 (98) 95 Intake and Output 10/30/18 10/31/18 19:00 07:00 Intake Total 700 ml Output Total 2000 ml 400 ml Balance -1300 ml -400 ml Intake Oral 700 ml Output Urine Total 400 ml Hemodialysis UF 2000 ml General Appearance: cachetic HEENT: atraumatic, anicteric Respiratory/Chest: lungs clear, normal breath sounds Cardiovascular: normal rate, regular rhythm Abdomen: soft, non tender, no organomegaly Neurologic/Psychiatric: alert, responsive Laboratory Tests 10/31/18 06:05: White Blood Count 9.9, Red Blood Count 3.31L, Hemoglobin 9.3L, Hematocrit 30.5L , Mean Corpuscular Volume 92, Mean Corpuscular Hemoglobin 28.2, Mean Corpuscular Hemoglobin Concent 30.6L, Red Cell Distribution Width 20.0H, Platelet Count 153, Mean Platelet Volume 5.6L, Neutrophils (%) (Auto) 62.4, Lymphocytes (%) (Auto) 22.8, Monocytes (%) (Auto) 11.1H, Eosinophils (%) (Auto) 2.9, Basophils (%) (Auto) 0.9, Sodium Level 135L, Potassium Level 5.2H, Chloride Level 101, Carbon Dioxide Level 27, Anion Gap 7, Blood Urea Nitrogen 70H, Creatinine 5.8H, Estimat Glomerular Filtration Rate 9.9, Glucose Level 88, Calcium Level 8.3L, Total Bilirubin 0.4, Aspartate Amino Transf (AST/SGOT) 23, Alanine Aminotransferase (ALT/SGPT) 34, Alkaline Phosphatase 172H, Total Protein 6.8, Albumin 1.9L, Globulin 4.9, Albumin/Globulin Ratio 0.4L Current Medications Medications (Trade) Dose Ordered Sig/Mary Kay Route PRN Reason Start Time Stop Time Status Last Admin Dose Admin Acetaminophen (Tylenol) 650 mg Q6H PRN ORAL Mild Pain/Temp > 100.5 10/04/18 23:30 11/03/18 23:29 Acetaminophen/ Hydrocodone Bitart ([place]it 10/325) 1 tab Q4H PRN ORAL Severe Pain (Pain Scale 7-10) 10/26/18 19:45 11/02/18 19:44 10/31/18 16:52 Amlodipine Besylate (Norvasc) 5 mg DAILY ORAL 10/24/18 09:00 11/23/18 08:59 10/31/18 08:30 Carvedilol (Coreg) 25 mg EVERY 12 HOURS ORAL 10/22/18 21:00 11/11/18 20:59 10/30/18 20:08 Docusate Sodium (Colace) 100 mg THREE TIMES A DAY ORAL 10/05/18 13:00 11/04/18 12:59 10/25/18 12:48 Epoetin David (Procrit (for ESRD on dialysis)) 10,000 units THU-THU-THU SUBQ 10/08/18 21:00 11/07/18 20:59 10/29/18 22:01 Fluoxetine HCl (PROzac) 20 mg DAILY ORAL 10/13/18 09:00 11/12/18 08:59 10/31/18 08:29 Folic Acid (Folate) 1 mg DAILY ORAL 10/28/18 09:00 11/04/18 11:03 10/31/18 08:30 Heparin Sodium (Porcine) (Heparin 5000 units/ml) 5,000 units EVERY 12 HOURS SUBQ 10/05/18 09:00 11/04/18 08:59 10/30/18 20:13 Hydralazine HCl (Apresoline) 25 mg Q8HR ORAL 10/27/18 14:00 11/26/18 13:59 10/31/18 14:44 Levothyroxine Sodium (Synthroid) 25 mcg DAILY@0630 ORAL 10/06/18 06:30 11/05/18 06:29 10/31/18 06:24 Mirtazapine (Remeron) 15 mg BEDTIME ORAL 10/20/18 21:00 11/19/18 20:59 10/30/18 20:06 Olanzapine (ZyPREXA) 30 mg BEDTIME ORAL 10/25/18 21:00 11/24/18 20:59 10/31/18 03:47 Ondansetron HCl (Zofran) 4 mg Q4HR PRN IVP Nausea & Vomiting 10/04/18 23:30 11/03/18 23:29 Pantoprazole (Protonix) 40 mg DAILY ORAL 10/05/18 11:02 11/04/18 11:01 10/31/18 08:29 Sevelamer Carbonate (Renvela) 1,600 mg THREE TIMES A DAY ORAL 10/06/18 18:00 11/04/18 12:59 10/31/18 16:53 Thiamine HCl (Vitamin B1) 100 mg DAILY ORAL 10/10/18 10:00 11/09/18 09:59 10/31/18 08:29 Vitamin B Complex/ Vit C/Folic Acid (Nephrovite) 1 tab DAILY ORAL 10/06/18 09:00 11/05/18 08:59 10/31/18 08:30 Saige Wilde DO Oct 31, 2018 18:08
--- NOTE | 2018-10-31 18:22 | General Progress Note ---
Assessment/Plan Problem List: (1) Schizophrenia ICD Codes: F20.9 - Schizophrenia, unspecified SNOMED: 83191513 Assessment/Plan Zyprexa 30mg po qhs Remeron 15mg qhs provided ro/st Subjective Neurologic/Psychiatric: Reports: anxiety, depressed, emotional problems Allergies: Coded Allergies: No Known Allergies (Unverified , 10/04/18) Subjective denies AH no si/hi Objective Last 24 Hour Vital Signs Date Time Temp Pulse Resp B/P (MAP) Pulse Ox O2 Delivery O2 Flow Rate FiO2 10/31/18 17:22 98.0 10/31/18 15:50 98.0 78 18 135/75 (95) 96 10/31/18 14:44 132/80 10/31/18 12:06 97.3 76 17 132/80 (97) 98 10/31/18 09:00 Room Air 10/31/18 08:30 71 111/75 10/31/18 08:30 71 111/75 10/31/18 08:07 97.0 71 18 111/75 (87) 97 10/31/18 06:24 137/80 10/31/18 04:00 97.7 74 18 139/82 (101) 98 10/31/18 00:00 98.1 73 18 134/79 (97) 97 10/30/18 21:00 Room Air 10/30/18 20:08 134/78 10/30/18 20:08 78 138/78 10/30/18 20:00 97.8 74 19 138/78 (98) 95 Intake and Output 10/30/18 10/31/18 19:00 07:00 Intake Total 700 ml Output Total 2000 ml 400 ml Balance -1300 ml -400 ml Intake Oral 700 ml Output Urine Total 400 ml Hemodialysis UF 2000 ml Laboratory Tests 10/31/18 06:05: White Blood Count 9.9, Red Blood Count 3.31L, Hemoglobin 9.3L, Hematocrit 30.5L , Mean Corpuscular Volume 92, Mean Corpuscular Hemoglobin 28.2, Mean Corpuscular Hemoglobin Concent 30.6L, Red Cell Distribution Width 20.0H, Platelet Count 153, Mean Platelet Volume 5.6L, Neutrophils (%) (Auto) 62.4, Lymphocytes (%) (Auto) 22.8, Monocytes (%) (Auto) 11.1H, Eosinophils (%) (Auto) 2.9, Basophils (%) (Auto) 0.9, Sodium Level 135L, Potassium Level 5.2H, Chloride Level 101, Carbon Dioxide Level 27, Anion Gap 7, Blood Urea Nitrogen 70H, Creatinine 5.8H, Estimat Glomerular Filtration Rate 9.9, Glucose Level 88, Calcium Level 8.3L, Total Bilirubin 0.4, Aspartate Amino Transf (AST/SGOT) 23, Alanine Aminotransferase (ALT/SGPT) 34, Alkaline Phosphatase 172H, Total Protein 6.8, Albumin 1.9L, Globulin 4.9, Albumin/Globulin Ratio 0.4L Height (Feet): 5 Height (Inches): 8.00 Weight (Pounds): 125 General Appearance: alert, cachetic Neurologic: oriented x 3, responsive, depressed affect Minal Nuñez MD Oct 31, 2018 18:21
--- NOTE | 2018-10-31 18:44 | General Progress Note ---
Assessment/Plan Assessment/Plan Assessment - Anemia, multifactorial - Hepatitis C - Patient declines EGD/Colon - ESRD / HD - malnutrition - poor intermediate prognosis Recommendations - EPO - PPI - follow labs - push po - no EGD/Colon , per patient wishes - can consider HCV eradication at later date Subjective Allergies: Coded Allergies: No Known Allergies (Unverified , 10/04/18) Subjective Feels same no abdominal symptoms appetite good Objective Last 24 Hour Vital Signs Date Time Temp Pulse Resp B/P (MAP) Pulse Ox O2 Delivery O2 Flow Rate FiO2 10/31/18 17:22 98.0 10/31/18 15:50 98.0 78 18 135/75 (95) 96 10/31/18 14:44 132/80 10/31/18 12:06 97.3 76 17 132/80 (97) 98 10/31/18 09:00 Room Air 10/31/18 08:30 71 111/75 10/31/18 08:30 71 111/75 10/31/18 08:07 97.0 71 18 111/75 (87) 97 10/31/18 06:24 137/80 10/31/18 04:00 97.7 74 18 139/82 (101) 98 10/31/18 00:00 98.1 73 18 134/79 (97) 97 10/30/18 21:00 Room Air 10/30/18 20:08 134/78 10/30/18 20:08 78 138/78 10/30/18 20:00 97.8 74 19 138/78 (98) 95 Intake and Output 10/30/18 10/31/18 19:00 07:00 Intake Total 700 ml Output Total 2000 ml 400 ml Balance -1300 ml -400 ml Intake Oral 700 ml Output Urine Total 400 ml Hemodialysis UF 2000 ml Laboratory Tests 10/31/18 06:05: White Blood Count 9.9, Red Blood Count 3.31L, Hemoglobin 9.3L, Hematocrit 30.5L , Mean Corpuscular Volume 92, Mean Corpuscular Hemoglobin 28.2, Mean Corpuscular Hemoglobin Concent 30.6L, Red Cell Distribution Width 20.0H, Platelet Count 153, Mean Platelet Volume 5.6L, Neutrophils (%) (Auto) 62.4, Lymphocytes (%) (Auto) 22.8, Monocytes (%) (Auto) 11.1H, Eosinophils (%) (Auto) 2.9, Basophils (%) (Auto) 0.9, Sodium Level 135L, Potassium Level 5.2H, Chloride Level 101, Carbon Dioxide Level 27, Anion Gap 7, Blood Urea Nitrogen 70H, Creatinine 5.8H, Estimat Glomerular Filtration Rate 9.9, Glucose Level 88, Calcium Level 8.3L, Total Bilirubin 0.4, Aspartate Amino Transf (AST/SGOT) 23, Alanine Aminotransferase (ALT/SGPT) 34, Alkaline Phosphatase 172H, Total Protein 6.8, Albumin 1.9L, Globulin 4.9, Albumin/Globulin Ratio 0.4L Height (Feet): 5 Height (Inches): 8.00 Weight (Pounds): 125 Objective Thin NAD NCAT supple CTA RR soft ND no edema Cara Berkowitz MD Oct 31, 2018 18:44
[2018-10-31 20:00] VITALS: BP 135/78
[2018-11-01] VITALS: BP 115/64
[2018-11-01] MEDS: HYDROcodone/Acetamin 10/325 tab ORAL PRN ×5 (03:31→22:36)
[2018-11-01 04:29] VITALS: BP 146/85
[2018-11-01] MEDS: HydrALAZINE 25mg tab ORAL SCH ×3 (05:38→22:36)
[2018-11-01] MEDS: Levothyroxine 25mcg tab ORAL SCH (06:03)
[2018-11-01] MEDS: Nephrovite tab (Rena-Vite) ORAL SCH (08:31)
[2018-11-01] MEDS: Carvedilol 25mg Tab ORAL SCH ×2 (08:31→21:19)
[2018-11-01] MEDS: Thiamine 100mg tab ORAL SCH (08:31)
[2018-11-01] MEDS: Docusate 100mg cap ORAL SCH ×3 (08:32→17:20)
[2018-11-01] MEDS: Heparin 5000 units/ml inj SUBQ SCH ×2 (08:36→21:25)
[2018-11-01 08:43] VITALS: BP 142/75
--- NOTE | 2018-11-01 11:43 | Pulmonology Progress Note ---
Assessment/Plan Assessment/Plan Pulmonary Progress Note: Assessment/Plan PROBLEM LIST: 1. End-stage renal disease, status post missed dialysis via PermCath-resolved 2. Anemia, acute on chronic, with evidence of iron deficiency-stable 3. Hepatitis C. 4. Left thigh wound, imaging at [facility] reviewed. No evidence of abscess. 5. IV drug use. 6. Homelessness. 7. Systemic inflammatory response syndrome/sepsis-resovled 8. Leukocytosis-resolved 9. Hypothyroidism 10. GPC bacteremia, likely contaminant 11. CHF with systolic dysfunction TREATMENT PLAN: 1. abx per ID 2. encouarge PO 3. HD per renal 4. Surgery recs 5. wound care 6. Monitor hemoglobin and hematocrit, transfuse PRN Hb < 7, IV iron D/C 'd 2/2 elevated ferritin, on EPO 10. Pain control/supportive care. 11. Continue Synthroid 12. Multivitamins, thiamine, and folate. 13. DVT prophylaxis, heparin subcutaneous. 14. Diabetic renal diet. 15. The patient is a Full Code. 16 dc planning/placement Subjective Constitutional: Reports: no symptoms HEENT: Repors: no symptoms Respiratory: Reports: no symptoms Genitourinary: Reports: no symptoms Musculoskeletal: Reports: pain Allergies: Coded Allergies: No Known Allergies (Unverified , 10/04/18) Subjective no events noted over night still weak tolerating po getting oob to wc no cp nv or bleeding no fever no drainage noted Objective Vital Signs Noted General Appearance: cachetic HEENT: atraumatic, anicteric Respiratory/Chest: lungs clear, normal breath sounds Cardiovascular: normal rate, regular rhythm Abdomen: soft, non tender, no organomegaly Neurologic/Psychiatric: alert, responsive Laboratory Tests 10/31/18 06:05: White Blood Count 9.9, Red Blood Count 3.31L, Hemoglobin 9.3L, Hematocrit 30.5L , Mean Corpuscular Volume 92, Mean Corpuscular Hemoglobin 28.2, Mean Corpuscular Hemoglobin Concent 30.6L, Red Cell Distribution Width 20.0H, Platelet Count 153, Mean Platelet Volume 5.6L, Neutrophils (%) (Auto) 62.4, Lymphocytes (%) (Auto) 22.8, Monocytes (%) (Auto) 11.1H, Eosinophils (%) (Auto) 2.9, Basophils (%) (Auto) 0.9, Sodium Level 135L, Potassium Level 5.2H, Chloride Level 101, Carbon Dioxide Level 27, Anion Gap 7, Blood Urea Nitrogen 70H, Creatinine 5.8H, Estimat Glomerular Filtration Rate 9.9, Glucose Level 88, Calcium Level 8.3L, Total Bilirubin 0.4, Aspartate Amino Transf (AST/SGOT) 23, Alanine Aminotransferase (ALT/SGPT) 34, Alkaline Phosphatase 172H, Total Protein 6.8, Albumin 1.9L, Globulin 4.9, Albumin/Globulin Ratio 0.4L Current Medications Medications (Trade) Dose Ordered Sig/Mary Kay Route PRN Reason Start Time Stop Time Status Last Admin Dose Admin Acetaminophen (Tylenol) 650 mg Q6H PRN ORAL Mild Pain/Temp > 100.5 10/04/18 23:30 11/03/18 23:29 Acetaminophen/ Hydrocodone Bitart ([place] 10/325) 1 tab Q4H PRN ORAL Severe Pain (Pain Scale 7-10) 10/26/18 19:45 11/02/18 19:44 10/31/18 16:52 Amlodipine Besylate (Norvasc) 5 mg DAILY ORAL 10/24/18 09:00 11/23/18 08:59 10/31/18 08:30 Carvedilol (Coreg) 25 mg EVERY 12 HOURS ORAL 10/22/18 21:00 11/11/18 20:59 10/30/18 20:08 Docusate Sodium (Colace) 100 mg THREE TIMES A DAY ORAL 10/05/18 13:00 11/04/18 12:59 10/25/18 12:48 Epoetin David (Procrit (for ESRD on dialysis)) 10,000 units THU-THU-THU SUBQ 10/08/18 21:00 11/07/18 20:59 10/29/18 22:01 Fluoxetine HCl (PROzac) 20 mg DAILY ORAL 10/13/18 09:00 11/12/18 08:59 10/31/18 08:29 Folic Acid (Folate) 1 mg DAILY ORAL 10/28/18 09:00 11/04/18 11:03 10/31/18 08:30 Heparin Sodium (Porcine) (Heparin 5000 units/ml) 5,000 units EVERY 12 HOURS SUBQ 10/05/18 09:00 11/04/18 08:59 10/30/18 20:13 Hydralazine HCl (Apresoline) 25 mg Q8HR ORAL 10/27/18 14:00 11/26/18 13:59 10/31/18 14:44 Levothyroxine Sodium (Synthroid) 25 mcg DAILY@0630 ORAL 10/06/18 06:30 11/05/18 06:29 10/31/18 06:24 Mirtazapine (Remeron) 15 mg BEDTIME ORAL 10/20/18 21:00 11/19/18 20:59 10/30/18 20:06 Olanzapine (ZyPREXA) 30 mg BEDTIME ORAL 10/25/18 21:00 11/24/18 20:59 10/31/18 03:47 Ondansetron HCl (Zofran) 4 mg Q4HR PRN IVP Nausea & Vomiting 10/04/18 23:30 11/03/18 23:29 Pantoprazole (Protonix) 40 mg DAILY ORAL 10/05/18 11:02 11/04/18 11:01 10/31/18 08:29 Sevelamer Carbonate (Renvela) 1,600 mg THREE TIMES A DAY ORAL 10/06/18 18:00 11/04/18 12:59 10/31/18 16:53 Thiamine HCl (Vitamin B1) 100 mg DAILY ORAL 10/10/18 10:00 11/09/18 09:59 10/31/18 08:29 Vitamin B Complex/ Vit C/Folic Acid (Nephrovite) 1 tab DAILY ORAL 10/06/18 09:00 11/05/18 08:59 10/31/18 08:30 Subjective ROS Limited/Unobtainable: No Allergies: Coded Allergies: No Known Allergies (Unverified , 10/04/18) Objective Last 24 Hour Vital Signs Date Time Temp Pulse Resp B/P (MAP) Pulse Ox O2 Delivery O2 Flow Rate FiO2 11/01/18 08:43 97.2 75 18 142/75 (97) 11/01/18 08:33 73 146/85 11/01/18 08:31 73 146/85 11/01/18 08:04 Room Air 11/01/18 04:29 98.0 73 18 146/85 (105) 11/01/18 00:00 97.0 69 18 115/64 (81) 10/31/18 21:06 135/65 10/31/18 21:06 80 135/65 10/31/18 21:00 Room Air 10/31/18 20:00 98.2 78 20 135/78 (97) 10/31/18 17:22 98.0 10/31/18 15:50 98.0 78 18 135/75 (95) 96 10/31/18 14:44 132/80 10/31/18 12:06 97.3 76 17 132/80 (97) 98 Intake and Output 10/31/18 11/01/18 18:59 06:59 Intake Total 1040 ml 240 ml Balance 1040 ml 240 ml Intake Oral 240 ml 240 ml Other 800 ml # Voids 100 # Bowel Movements 3 Current Medications Medications (Trade) Dose Ordered Sig/Mary Kay Route PRN Reason Start Time Stop Time Status Last Admin Dose Admin Acetaminophen (Tylenol) 650 mg Q6H PRN ORAL Mild Pain/Temp > 100.5 10/04/18 23:30 11/03/18 23:29 Acetaminophen/ Hydrocodone Bitart ([place] 10/325) 1 tab Q4H PRN ORAL Severe Pain (Pain Scale 7-10) 10/26/18 19:45 11/02/18 19:44 11/01/18 08:38 Amlodipine Besylate (Norvasc) 5 mg DAILY ORAL 10/24/18 09:00 11/23/18 08:59 10/31/18 08:30 Carvedilol (Coreg) 25 mg EVERY 12 HOURS ORAL 10/22/18 21:00 11/11/18 20:59 11/01/18 08:31 Docusate Sodium (Colace) 100 mg THREE TIMES A DAY ORAL 10/05/18 13:00 11/04/18 12:59 10/25/18 12:48 Epoetin David (Procrit (for ESRD on dialysis)) 10,000 units THU-THU-THU SUBQ 10/08/18 21:00 11/07/18 20:59 10/29/18 22:01 Fluoxetine HCl (PROzac) 20 mg DAILY ORAL 10/13/18 09:00 11/12/18 08:59 11/01/18 08:31 Folic Acid (Folate) 1 mg DAILY ORAL 10/28/18 09:00 11/04/18 11:03 11/01/18 08:31 Heparin Sodium (Porcine) (Heparin 5000 units/ml) 5,000 units EVERY 12 HOURS SUBQ 10/05/18 09:00 11/04/18 08:59 11/01/18 08:36 Hydralazine HCl (Apresoline) 25 mg Q8HR ORAL 10/27/18 14:00 11/26/18 13:59 10/31/18 21:06 Levothyroxine Sodium (Synthroid) 25 mcg DAILY@0630 ORAL 10/06/18 06:30 11/05/18 06:29 11/01/18 06:03 Mirtazapine (Remeron) 15 mg BEDTIME ORAL 10/20/18 21:00 11/19/18 20:59 10/31/18 21:05 Olanzapine (ZyPREXA) 30 mg BEDTIME ORAL 10/25/18 21:00 11/24/18 20:59 10/31/18 21:18 Ondansetron HCl (Zofran) 4 mg Q4HR PRN IVP Nausea & Vomiting 10/04/18 23:30 11/03/18 23:29 Pantoprazole (Protonix) 40 mg DAILY ORAL 10/05/18 11:02 11/04/18 11:01 11/01/18 08:31 Sevelamer Carbonate (Renvela) 1,600 mg THREE TIMES A DAY ORAL 10/06/18 18:00 11/04/18 12:59 11/01/18 08:31 Thiamine HCl (Vitamin B1) 100 mg DAILY ORAL 10/10/18 10:00 11/09/18 09:59 11/01/18 08:31 Vitamin B Complex/ Vit C/Folic Acid (Nephrovite) 1 tab DAILY ORAL 10/06/18 09:00 11/05/18 08:59 11/01/18 08:31 Miguel Kirby MD Nov 01, 2018 11:42
--- NOTE | 2018-11-01 12:24 | Diagnostic Imaging Report ---
Indication: Pain in right ankle after falling one hour previous Technique: 3 views of the right ankle Comparison: none Findings: No acute fractures. No dislocations. The joint spaces are preserved Impression: Negative This agrees with the preliminary interpretation provided overnight by [facility] teleradiology service.
--- NOTE | 2018-11-01 12:27 | Diagnostic Imaging Report ---
Indication: Fall, pain in lumbar region Technique: 4 views of the lumbar spine Comparison: None Findings: Bony alignment is normal. There is a slight wedging of the L3 vertebral body. This may represent degenerative remodeling rather than compression fracture. The remaining vertebral body heights are preserved. No other acute fractures. There is degenerative disc narrowing at L5-S1. Impression: Mild wedging of the L3 vertebral body, more likely on the basis of degenerative remodeling than compression fracture although latter not completely excludable. Consider MRI if there is high clinical suspicion Degenerative changes, as described
[2018-11-01 14:10] VITALS: BP 139/78
--- NOTE | 2018-11-01 15:38 | Nephrology Progress Note ---
Assessment/Plan Problem List: (1) Cardiomyopathy (2) ESRD on dialysis (3) Bacteremia (4) Homeless (5) Leukocytosis Assessment: strep bacteremia Assessment ESRD- Cardiomyopathy Anemia of CKD Hyperkalemia Leukocytosis, ? Line infection FTT (failure to thrive) in adult- malnutrition Homeless Plan stop lisinopril- kayexelate po as needed HD 10/30 next 11/01 on hydralazine up dose coreg Folate- po Phos binders 2D echo Septal hypokinesis.mid to distal Inferior wall hypokinesis Left ventricular ejection fraction estimated to be 40%. DC planning Subjective ROS Limited/Unobtainable: No Objective Objective Last 24 Hour Vital Signs Date Time Temp Pulse Resp B/P (MAP) Pulse Ox O2 Delivery O2 Flow Rate FiO2 11/01/18 14:11 139/78 11/01/18 14:10 97.6 77 18 139/78 (98) 18 11/01/18 08:43 97.2 75 18 142/75 (97) 19 11/01/18 08:33 73 146/85 11/01/18 08:31 73 146/85 11/01/18 08:04 Room Air 11/01/18 04:29 98.0 73 18 146/85 (105) 11/01/18 00:00 97.0 69 18 115/64 (81) 10/31/18 21:06 135/65 10/31/18 21:06 80 135/65 10/31/18 21:00 Room Air 10/31/18 20:00 98.2 78 20 135/78 (97) 10/31/18 17:22 98.0 10/31/18 15:50 98.0 78 18 135/75 (95) 96 Intake and Output 10/31/18 11/01/18 19:00 07:00 Intake Total 1040 ml 240 ml Balance 1040 ml 240 ml Intake Oral 240 ml 240 ml Other 800 ml # Voids 100 # Bowel Movements 3 Height (Feet): 5 Height (Inches): 8.00 Weight (Pounds): 125 General Appearance: no apparent distress Objective no change David Meyers MD Nov 01, 2018 15:38
[2018-11-01 15:50] VITALS: BP 121/62
--- NOTE | 2018-11-01 19:38 | General Progress Note ---
Assessment/Plan Assessment/Plan Assessment - Anemia, multifactorial - Hepatitis C - Patient declines EGD/Colon - ESRD / HD - malnutrition - poor [facility] prognosis Recommendations - EPO - PPI - follow labs - push po - no EGD/Colon , per patient wishes - can consider HCV eradication at later date Subjective Allergies: Coded Allergies: No Known Allergies (Unverified , 10/04/18) Subjective Feels same no abdominal symptoms appetite good Objective Last 24 Hour Vital Signs Date Time Temp Pulse Resp B/P (MAP) Pulse Ox O2 Delivery O2 Flow Rate FiO2 11/01/18 15:50 97.3 74 18 121/62 (81) 18 11/01/18 14:11 139/78 11/01/18 14:10 97.6 77 18 139/78 (98) 18 11/01/18 08:43 97.2 75 18 142/75 (97) 19 11/01/18 08:33 73 146/85 11/01/18 08:31 73 146/85 11/01/18 08:04 Room Air 11/01/18 04:29 98.0 73 18 146/85 (105) 11/01/18 00:00 97.0 69 18 115/64 (81) 10/31/18 21:06 135/65 10/31/18 21:06 80 135/65 10/31/18 21:00 Room Air 10/31/18 20:00 98.2 78 20 135/78 (97) Intake and Output 10/31/18 11/01/18 19:00 07:00 Intake Total 1040 ml 240 ml Balance 1040 ml 240 ml Intake Oral 240 ml 240 ml Other 800 ml # Voids 100 # Bowel Movements 3 Height (Feet): 5 Height (Inches): 8.00 Weight (Pounds): 125 Objective Thin NAD NCAT supple CTA RR soft ND no edema Cara Berkowitz MD Nov 01, 2018 19:38
[2018-11-01 20:00] VITALS: BP 134/78
[2018-11-01] MEDS: Epogen (for ESRD on dialysis) SUBQ SCH (21:20)
[2018-11-01] MEDS: OLANZapine 10mg tab ORAL SCH (21:20)
[2018-11-02] VITALS: BP 127/71
--- NOTE | 2018-11-02 01:44 | General Progress Note ---
Assessment/Plan Problem List: (1) Schizophrenia ICD Codes: F20.9 - Schizophrenia, unspecified SNOMED: [id number] Assessment/Plan Zyprexa 30mg po qhs Remeron 15mg qhs provided ro/st Subjective Neurologic/Psychiatric: Reports: anxiety, depressed, emotional problems Allergies: Coded Allergies: No Known Allergies (Unverified , 10/04/18) Subjective denies AH no si/hi the pt was malodorous and was getting dialysis Objective Last 24 Hour Vital Signs Date Time Temp Pulse Resp B/P (MAP) Pulse Ox O2 Delivery O2 Flow Rate FiO2 11/02/18 00:00 98.3 76 18 127/71 (89) 96 11/01/18 23:06 98.1 11/01/18 22:36 137/79 11/01/18 21:32 Room Air 11/01/18 21:19 75 133/72 11/01/18 20:00 98.1 74 18 134/78 (96) 97 11/01/18 15:50 97.3 74 18 121/62 (81) 18 11/01/18 14:11 139/78 11/01/18 14:10 97.6 77 18 139/78 (98) 18 11/01/18 08:43 97.2 75 18 142/75 (97) 19 11/01/18 08:33 73 146/85 11/01/18 08:31 73 146/85 11/01/18 08:04 Room Air 11/01/18 04:29 98.0 73 18 146/85 (105) Intake and Output 11/01/18 11/02/18 19:00 07:00 Intake Total 700 ml 120 ml Output Total 400 ml Balance 300 ml 120 ml Intake Oral 700 ml 120 ml Output Urine Total 400 ml # Bowel Movements 2 Height (Feet): 5 Height (Inches): 8.00 Weight (Pounds): 123 General Appearance: alert, cachetic Neurologic: oriented x 3, responsive, depressed affect Minal Nuñez MD Nov 02, 2018 01:44
[2018-11-02 04:00] VITALS: BP 129/82
[2018-11-02] MEDS: HYDROcodone/Acetamin 10/325 tab ORAL PRN ×5 (04:35→21:33)
[2018-11-02] MEDS: Levothyroxine 25mcg tab ORAL SCH (06:24)
[2018-11-02] MEDS: HydrALAZINE 25mg tab ORAL SCH ×3 (06:24→21:33)
[2018-11-02 08:00] VITALS: BP 146/91
[2018-11-02] MEDS: Nephrovite tab (Rena-Vite) ORAL SCH (08:44)
[2018-11-02] MEDS: Thiamine 100mg tab ORAL SCH (08:45)
[2018-11-02] MEDS: Carvedilol 25mg Tab ORAL SCH ×2 (08:46→21:33)
[2018-11-02] MEDS: Docusate 100mg cap ORAL SCH ×3 (08:46→17:22)
[2018-11-02] MEDS: Heparin 5000 units/ml inj SUBQ SCH ×2 (08:48→21:36)
[2018-11-02 12:05] VITALS: BP 143/92
--- NOTE | 2018-11-02 13:54 | Nephrology Progress Note ---
Assessment/Plan Problem List: (1) Cardiomyopathy (2) ESRD on dialysis (3) Bacteremia (4) Homeless (5) Leukocytosis Assessment: strep bacteremia Assessment ESRD- Cardiomyopathy Anemia of CKD Hyperkalemia Leukocytosis, ? Line infection FTT (failure to thrive) in adult- malnutrition Homeless Plan stop lisinopril- kayexelate po as needed HD 11/04/18 on hydralazine up dose coreg Folate- po Phos binders 2D echo Septal hypokinesis.mid to distal Inferior wall hypokinesis Left ventricular ejection fraction estimated to be 40%. DC planning Subjective ROS Limited/Unobtainable: No Objective Objective Last 24 Hour Vital Signs Date Time Temp Pulse Resp B/P (MAP) Pulse Ox O2 Delivery O2 Flow Rate FiO2 11/02/18 12:05 98.0 91 18 143/92 (109) 95 11/02/18 08:46 67 134/76 11/02/18 08:45 67 134/76 11/02/18 08:25 Room Air 11/02/18 08:00 98.4 85 19 146/91 (109) 97 11/02/18 06:24 134/76 11/02/18 05:05 98.3 11/02/18 04:00 98.0 67 18 129/82 (98) 97 11/02/18 00:00 98.3 76 18 127/71 (89) 96 11/01/18 22:36 137/79 11/01/18 21:32 Room Air 11/01/18 21:19 75 133/72 11/01/18 20:00 98.1 74 18 134/78 (96) 97 11/01/18 15:50 97.3 74 18 121/62 (81) 18 11/01/18 14:11 139/78 11/01/18 14:10 97.6 77 18 139/78 (98) 18 Intake and Output 11/01/18 11/02/18 18:59 06:59 Intake Total 700 ml 960 ml Output Total 400 ml Balance 300 ml 960 ml Intake Oral 700 ml 960 ml Output Urine Total 400 ml # Voids 100 # Bowel Movements 2 2 Height (Feet): 5 Height (Inches): 8.00 Weight (Pounds): 123 General Appearance: no apparent distress Cardiovascular: normal rate Respiratory/Chest: lungs clear Abdomen: soft Objective no change David Meyers MD Nov 02, 2018 13:54
[2018-11-02 16:00] VITALS: BP 135/83
--- NOTE | 2018-11-02 17:34 | Pulmonology Progress Note ---
Assessment/Plan Assessment/Plan Pulmonary Progress Note: Assessment/Plan PROBLEM LIST: 1. End-stage renal disease, status post missed dialysis via PermCath-resolved 2. Anemia, acute on chronic, with evidence of iron deficiency-stable 3. Hepatitis C. 4. Left thigh wound, imaging at [facility] reviewed. No evidence of abscess. 5. IV drug use. 6. Homelessness. 7. Systemic inflammatory response syndrome/sepsis-resovled 8. Leukocytosis-resolved 9. Hypothyroidism 10. GPC bacteremia, likely contaminant 11. CHF with systolic dysfunction No new complaints TREATMENT PLAN: 1. abx per ID 2. encouarge PO 3. HD per renal 4. Surgery recs 5. wound care 6. Monitor hemoglobin and hematocrit, transfuse PRN Hb < 7, IV iron D/C 'd 2/2 elevated ferritin, on EPO 10. Pain control/supportive care. 11. Continue Synthroid 12. Multivitamins, thiamine, and folate. 13. DVT prophylaxis, heparin subcutaneous. 14. Diabetic renal diet. 15. The patient is a Full Code. 16 dc planning/placement Subjective Constitutional: Reports: no symptoms HEENT: Repors: no symptoms Respiratory: Reports: no symptoms Genitourinary: Reports: no symptoms Musculoskeletal: Reports: pain Allergies: Coded Allergies: No Known Allergies (Unverified , 10/04/18) Subjective no events noted over night still weak tolerating po getting oob to wc no cp nv or bleeding no fever no drainage noted Objective Vital Signs Noted General Appearance: cachetic HEENT: atraumatic, anicteric Respiratory/Chest: lungs clear, normal breath sounds Cardiovascular: normal rate, regular rhythm Abdomen: soft, non tender, no organomegaly Neurologic/Psychiatric: alert, responsive Laboratory Tests 10/31/18 06:05: White Blood Count 9.9, Red Blood Count 3.31L, Hemoglobin 9.3L, Hematocrit 30.5L , Mean Corpuscular Volume 92, Mean Corpuscular Hemoglobin 28.2, Mean Corpuscular Hemoglobin Concent 30.6L, Red Cell Distribution Width 20.0H, Platelet Count 153, Mean Platelet Volume 5.6L, Neutrophils (%) (Auto) 62.4, Lymphocytes (%) (Auto) 22.8, Monocytes (%) (Auto) 11.1H, Eosinophils (%) (Auto) 2.9, Basophils (%) (Auto) 0.9, Sodium Level 135L, Potassium Level 5.2H, Chloride Level 101, Carbon Dioxide Level 27, Anion Gap 7, Blood Urea Nitrogen 70H, Creatinine 5.8H, Estimat Glomerular Filtration Rate 9.9, Glucose Level 88, Calcium Level 8.3L, Total Bilirubin 0.4, Aspartate Amino Transf (AST/SGOT) 23, Alanine Aminotransferase (ALT/SGPT) 34, Alkaline Phosphatase 172H, Total Protein 6.8, Albumin 1.9L, Globulin 4.9, Albumin/Globulin Ratio 0.4L Current Medications Medications (Trade) Dose Ordered Sig/Mary Kay Route PRN Reason Start Time Stop Time Status Last Admin Dose Admin Acetaminophen (Tylenol) 650 mg Q6H PRN ORAL Mild Pain/Temp > 100.5 10/04/18 23:30 11/03/18 23:29 Acetaminophen/ Hydrocodone Bitart ([place] 10/325) 1 tab Q4H PRN ORAL Severe Pain (Pain Scale 7-10) 10/26/18 19:45 11/02/18 19:44 10/31/18 16:52 Amlodipine Besylate (Norvasc) 5 mg DAILY ORAL 10/24/18 09:00 11/23/18 08:59 10/31/18 08:30 Carvedilol (Coreg) 25 mg EVERY 12 HOURS ORAL 10/22/18 21:00 11/11/18 20:59 10/30/18 20:08 Docusate Sodium (Colace) 100 mg THREE TIMES A DAY ORAL 10/05/18 13:00 11/04/18 12:59 10/25/18 12:48 Epoetin David (Procrit (for ESRD on dialysis)) 10,000 units THU-THU-THU SUBQ 10/08/18 21:00 11/07/18 20:59 10/29/18 22:01 Fluoxetine HCl (PROzac) 20 mg DAILY ORAL 10/13/18 09:00 11/12/18 08:59 10/31/18 08:29 Folic Acid (Folate) 1 mg DAILY ORAL 10/28/18 09:00 11/04/18 11:03 10/31/18 08:30 Heparin Sodium (Porcine) (Heparin 5000 units/ml) 5,000 units EVERY 12 HOURS SUBQ 10/05/18 09:00 11/04/18 08:59 10/30/18 20:13 Hydralazine HCl (Apresoline) 25 mg Q8HR ORAL 10/27/18 14:00 11/26/18 13:59 10/31/18 14:44 Levothyroxine Sodium (Synthroid) 25 mcg DAILY@0630 ORAL 10/06/18 06:30 11/05/18 06:29 10/31/18 06:24 Mirtazapine (Remeron) 15 mg BEDTIME ORAL 10/20/18 21:00 11/19/18 20:59 10/30/18 20:06 Olanzapine (ZyPREXA) 30 mg BEDTIME ORAL 10/25/18 21:00 11/24/18 20:59 10/31/18 03:47 Ondansetron HCl (Zofran) 4 mg Q4HR PRN IVP Nausea & Vomiting 10/04/18 23:30 11/03/18 23:29 Pantoprazole (Protonix) 40 mg DAILY ORAL 10/05/18 11:02 11/04/18 11:01 10/31/18 08:29 Sevelamer Carbonate (Renvela) 1,600 mg THREE TIMES A DAY ORAL 10/06/18 18:00 11/04/18 12:59 10/31/18 16:53 Thiamine HCl (Vitamin B1) 100 mg DAILY ORAL 10/10/18 10:00 11/09/18 09:59 10/31/18 08:29 Vitamin B Complex/ Vit C/Folic Acid (Nephrovite) 1 tab DAILY ORAL 10/06/18 09:00 11/05/18 08:59 10/31/18 08:30 Subjective ROS Limited/Unobtainable: No Allergies: Coded Allergies: No Known Allergies (Unverified , 10/04/18) Objective Last 24 Hour Vital Signs Date Time Temp Pulse Resp B/P (MAP) Pulse Ox O2 Delivery O2 Flow Rate FiO2 11/02/18 16:00 97.7 79 18 135/83 (100) 95 11/02/18 13:58 143/92 11/02/18 12:05 98.0 91 18 143/92 (109) 95 11/02/18 08:46 67 134/76 11/02/18 08:45 67 134/76 11/02/18 08:25 Room Air 11/02/18 08:00 98.4 85 19 146/91 (109) 97 11/02/18 06:24 134/76 11/02/18 05:05 98.3 11/02/18 04:00 98.0 67 18 129/82 (98) 97 11/02/18 00:00 98.3 76 18 127/71 (89) 96 11/01/18 22:36 137/79 11/01/18 21:32 Room Air 11/01/18 21:19 75 133/72 11/01/18 20:00 98.1 74 18 134/78 (96) 97 Intake and Output 11/01/18 11/02/18 19:00 07:00 Intake Total 700 ml 960 ml Output Total 400 ml Balance 300 ml 960 ml Intake Oral 700 ml 960 ml Output Urine Total 400 ml # Voids 100 # Bowel Movements 2 2 Current Medications Medications (Trade) Dose Ordered Sig/Mary Kay Route PRN Reason Start Time Stop Time Status Last Admin Dose Admin Acetaminophen (Tylenol) 650 mg Q6H PRN ORAL Mild Pain/Temp > 100.5 10/04/18 23:30 11/03/18 23:29 Acetaminophen/ Hydrocodone Bitart ([place] 10/325) 1 tab Q4H PRN ORAL Severe Pain (Pain Scale 7-10) 10/26/18 19:45 11/02/18 19:44 11/02/18 17:31 Amlodipine Besylate (Norvasc) 5 mg DAILY ORAL 10/24/18 09:00 11/23/18 08:59 11/02/18 08:45 Carvedilol (Coreg) 25 mg EVERY 12 HOURS ORAL 10/22/18 21:00 11/11/18 20:59 11/02/18 08:46 Docusate Sodium (Colace) 100 mg THREE TIMES A DAY ORAL 10/05/18 13:00 11/04/18 12:59 10/25/18 12:48 Epoetin David (Procrit (for ESRD on dialysis)) 10,000 units THU-THU-THU SUBQ 10/08/18 21:00 11/07/18 20:59 11/01/18 21:20 Fluoxetine HCl (PROzac) 20 mg DAILY ORAL 10/13/18 09:00 11/12/18 08:59 11/02/18 08:45 Folic Acid (Folate) 1 mg DAILY ORAL 10/28/18 09:00 11/04/18 11:03 11/02/18 08:45 Heparin Sodium (Porcine) (Heparin 5000 units/ml) 5,000 units EVERY 12 HOURS SUBQ 10/05/18 09:00 11/04/18 08:59 11/02/18 08:48 Hydralazine HCl (Apresoline) 25 mg Q8HR ORAL 10/27/18 14:00 11/26/18 13:59 11/02/18 13:58 Levothyroxine Sodium (Synthroid) 25 mcg DAILY@0630 ORAL 10/06/18 06:30 11/05/18 06:29 11/02/18 06:24 Mirtazapine (Remeron) 15 mg BEDTIME ORAL 10/20/18 21:00 11/19/18 20:59 11/01/18 21:19 Olanzapine (ZyPREXA) 30 mg BEDTIME ORAL 10/25/18 21:00 11/24/18 20:59 11/01/18 21:20 Ondansetron HCl (Zofran) 4 mg Q4HR PRN IVP Nausea & Vomiting 10/04/18 23:30 11/03/18 23:29 Pantoprazole (Protonix) 40 mg DAILY ORAL 10/05/18 11:02 11/04/18 11:01 11/02/18 08:45 Sevelamer Carbonate (Renvela) 1,600 mg THREE TIMES A DAY ORAL 10/06/18 18:00 11/04/18 12:59 11/02/18 17:31 Thiamine HCl (Vitamin B1) 100 mg DAILY ORAL 10/10/18 10:00 11/09/18 09:59 11/02/18 08:45 Vitamin B Complex/ Vit C/Folic Acid (Nephrovite) 1 tab DAILY ORAL 10/06/18 09:00 11/05/18 08:59 11/02/18 08:44 Miguel Kirby MD Nov 02, 2018 17:34
--- NOTE | 2018-11-02 19:11 | General Progress Note ---
Assessment/Plan Assessment/Plan Assessment - Anemia, multifactorial - Hepatitis C - Patient declines EGD/Colon - ESRD / HD - malnutrition - poor [facility] Recommendations - EPO - PPI - follow labs - push po - no EGD/Colon , per patient wishes (advised he can re-consider as outpatient) - can consider HCV eradication at later date Subjective Allergies: Coded Allergies: No Known Allergies (Unverified , 10/04/18) Subjective Feels same no abdominal symptoms appetite good Objective Last 24 Hour Vital Signs Date Time Temp Pulse Resp B/P (MAP) Pulse Ox O2 Delivery O2 Flow Rate FiO2 11/02/18 16:00 97.7 79 18 135/83 (100) 95 11/02/18 13:58 143/92 11/02/18 12:05 98.0 91 18 143/92 (109) 95 11/02/18 08:46 67 134/76 11/02/18 08:45 67 134/76 11/02/18 08:25 Room Air 11/02/18 08:00 98.4 85 19 146/91 (109) 97 11/02/18 06:24 134/76 11/02/18 05:05 98.3 11/02/18 04:00 98.0 67 18 129/82 (98) 97 11/02/18 00:00 98.3 76 18 127/71 (89) 96 11/01/18 22:36 137/79 11/01/18 21:32 Room Air 11/01/18 21:19 75 133/72 11/01/18 20:00 98.1 74 18 134/78 (96) 97 Intake and Output 11/01/18 11/02/18 19:00 07:00 Intake Total 700 ml 960 ml Output Total 400 ml Balance 300 ml 960 ml Intake Oral 700 ml 960 ml Output Urine Total 400 ml # Voids 100 # Bowel Movements 2 2 Height (Feet): 5 Height (Inches): 8.00 Weight (Pounds): 123 Objective Thin NAD NCAT supple CTA RR soft ND no edema Cara Berkowitz MD Nov 02, 2018 19:11
[2018-11-02 20:00] VITALS: BP 133/78
[2018-11-02] MEDS: OLANZapine 10mg tab ORAL SCH (21:32)
--- NOTE | 2018-11-02 21:55 | General Progress Note ---
Assessment/Plan Assessment/Plan #. Anemia of kidney disease/esrd -- anemia panel reviewed, has end-stage renal disease, status post missed dialysis via PermCath. --> transfuse on prn basis, if hgb <7 --> no evidence for hemolysis noted --> do not recommend iron at this time --> cont po folic acid and thiamine daily --> HD on permacath R arm --> getting epogen since hd and esrd, also vit b/folic acid --> hemoglobin electrophoresis is normal, no sickle cell trait noted --> no indication for iv iron --> hgb 7.7-->7.6-->7.8-->8.2-->8.6-->9.3 #. Thrombocytopenia due to underlying Hepatitis C. has been chronic --> Trend 200s-->134k-->153k --> afp 2.1, and trend plts as needed --> peripheral smear reviewed --> on abx as per ID #. Leukocytosis likely due to infection. --> Improved/Resolved --> completed IV abx #. Left thigh wound, imaging at [facility] reviewed. No evidence of abscess. --> completed abx as per id --> skin protectant per surg #. IV drug use. #. Homelessness. #. Systemic inflammatory response syndrome. #. Hypothyroidism. #. Hep C -- outpatient eradication #. ESRD on hd 3x a week #. DVT ppx with heparin sq GREATLY APPRECIATE CONSULTATION. Subjective Constitutional: Denies: no symptoms, chills, diaphoresis, fever, malaise, weakness, other HEENT: Denies: no symptoms, eye pain, blurred vision, tearing, double vision, ear pain, ear discharge, nose pain, nose congestion, throat pain, throat swelling, mouth pain, mouth swelling, other Cardiovascular: Denies: no symptoms, chest pain, edema, irregular heart rate, lightheadedness, palpitations, syncope, other Gastrointestinal/Abdominal: Denies: no symptoms, abdomen distended, abdominal pain, black stools, tarry stools, blood in stool, constipated, diarrhea, difficulty swallowing, nausea, poor appetite, poor fluid intake, rectal bleeding , vomiting, other Neurologic/Psychiatric: Denies: no symptoms, anxiety, depressed, emotional problems, headache, numbness, paresthesia, pre-existing deficit, seizure, tingling, tremors, weakness, other Endocrine: Denies: no symptoms, excessive sweating, flushing, intolerance to cold, intolerance to heat, increased hunger, increased thirst, increased urine, unexplained weight gain, unexplained weight loss, other Allergies: Coded Allergies: No Known Allergies (Unverified , 10/04/18) Subjective Pt awake and alert. No acute events. HD for today. H/H stable. 10/25: no further iv iron indicated 10/26: blood cultures pending, remains tired, on epo, no EGD/Colon as per patient wishes 10/27: no events noted 10/28: no events, no complaints, relays being in pain, wants pain meds 10/29 hd tomorrow planned 10/30: Pt awake and alert. No acute events. HD for today. 10/31: no events, seen by renal, pending HD for tomorrow, has been noncompliant 11/02: no events, HD planned 11/04, no iv access that is stable at this time Objective Last 24 Hour Vital Signs Date Time Temp Pulse Resp B/P (MAP) Pulse Ox O2 Delivery O2 Flow Rate FiO2 11/02/18 21:33 133/78 11/02/18 21:33 81 133/78 11/02/18 20:00 97.6 81 18 133/78 (96) 97 11/02/18 16:00 97.7 79 18 135/83 (100) 95 11/02/18 13:58 143/92 11/02/18 12:05 98.0 91 18 143/92 (109) 95 11/02/18 08:46 67 134/76 11/02/18 08:45 67 134/76 11/02/18 08:25 Room Air 11/02/18 08:00 98.4 85 19 146/91 (109) 97 11/02/18 06:24 134/76 11/02/18 05:05 98.3 11/02/18 04:00 98.0 67 18 129/82 (98) 97 11/02/18 00:00 98.3 76 18 127/71 (89) 96 11/01/18 22:36 137/79 Intake and Output 11/01/18 11/02/18 19:00 07:00 Intake Total 700 ml 960 ml Output Total 400 ml Balance 300 ml 960 ml Intake Oral 700 ml 960 ml Output Urine Total 400 ml # Voids 100 # Bowel Movements 2 2 Height (Feet): 5 Height (Inches): 8.00 Weight (Pounds): 123 General Appearance: lethargic EENT: TMs normal Neck: normal alignment Cardiovascular: regular rhythm Respiratory/Chest: lungs clear Abdomen: no organomegaly Extremities: non-tender Edema: mild edema Neurologic: oriented x 3 Skin: warm/dry Objective PHYSICAL EXAMINATION: GENERAL: elderly cachectic-looking gentleman in no respiratory distress NECK: Supple. No jugular venous distention. LUNGS: Ctab, Less coughing CARDIAC: Regular rhythm. holosystolic regurgitant murmur ++ ABDOMEN: Soft and not. ++ bowel sounds. EXTREMITIES: There is no clubbing, no cyanosis. There is no edema. Back: He has extensive ischemic changes in the skin in the inner thigh on both legs with eschar formation. Gordo Jang MD Nov 02, 2018 21:55
[2018-11-03] VITALS: BP 135/79
[2018-11-03] MEDS: HYDROcodone/Acetamin 10/325 tab ORAL PRN ×5 (02:02→20:51)
[2018-11-03 04:00] VITALS: BP 131/71
[2018-11-03] MEDS: Levothyroxine 25mcg tab ORAL SCH (06:08)
[2018-11-03] MEDS: HydrALAZINE 25mg tab ORAL SCH ×3 (06:08→21:11)
[2018-11-03 06:55] LABS: BASOPHILS % (AUTO) 1.6 % (0.0-2.0); EOSINOPHILS % (AUTO) 3.6 % (0.0-3.0); HEMATOCRIT 29.5 % (42.0-52.0); HEMOGLOBIN 9.2 G/DL (14.2-18.0); LYMPHOCYTES % (AUTO) 26.9 % (20.0-45.0); MEAN CORPUSCULAR VOLUME 91 FL (80-99); MONOCYTES % (AUTO) 10.6 % (1.0-10.0); NEUTROPHILS % (AUTO) 57.4 % (45.0-75.0); PLATELET COUNT 166 K/UL (150-450); RED BLOOD COUNT 3.23 M/UL (4.70-6.10); RED CELL DISTRIBUTION WIDTH 18.7 % (11.6-14.8); WHITE BLOOD COUNT 10.1 K/UL (4.8-10.8)
[2018-11-03 07:14] LABS: ALANINE AMINOTRANSFERASE 34 U/L (12-78); ALBUMIN 1.9 G/DL (3.4-5.0); ALBUMIN/GLOBULIN RATIO 0.4 (1.0-2.7); ALKALINE PHOSPHATASE 164 U/L (46-116); ANION GAP 12 mmol/L (5-15); ASPARTATE AMINO TRANSFERASE 27 U/L (15-37); BILIRUBIN,TOTAL 0.4 MG/DL (0.2-1.0); BLOOD UREA NITROGEN 91 mg/dL (7-18); CALCIUM 8.5 MG/DL (8.5-10.1); CARBON DIOXIDE 22 MMOL/L (21-32); CHLORIDE 99 MMOL/L (98-107); CREATININE 6.8 MG/DL (0.55-1.30); PHOSPHORUS 7.4 MG/DL (2.5-4.9); SODIUM 134 MMOL/L (136-145)
[2018-11-03 07:16] LABS: POTASSIUM 6.4 MMOL/L (3.5-5.1)
[2018-11-03 08:00] VITALS: BP 132/71
[2018-11-03] MEDS ORDERED: Sodium Polystyrene Sulfonate 15gm Powder ORAL SCH (08:30)
[2018-11-03] MEDS: Heparin 5000 units/ml inj SUBQ SCH ×2 (09:00→20:32)
[2018-11-03] MEDS: Carvedilol 25mg Tab ORAL SCH ×2 (09:00→20:11)
[2018-11-03] MEDS: Docusate 100mg cap ORAL SCH ×3 (09:00→18:00)
--- NOTE | 2018-11-03 09:14 | Pulmonology Progress Note ---
Assessment/Plan Problems: (1) Hepatitis C (2) Anemia (3) Dialysis patient (4) FTT (failure to thrive) in adult (5) Cellulitis (6) Leukocytosis (7) Homeless (8) Missed dialysis (9) CHF (congestive heart failure) (10) Bacteremia Assessment/Plan Continue current measures HD per renal Pain control/supportive care EPO MVI/thiamine/Folate DVT px: hep SQ F/U physician practice consultant recs Dispo planning Subjective Allergies: Coded Allergies: No Known Allergies (Unverified , 10/04/18) Subjective NITESH, events reviewed No change in chronic pain No F/C/CP/SOB Objective Last 24 Hour Vital Signs Date Time Temp Pulse Resp B/P (MAP) Pulse Ox O2 Delivery O2 Flow Rate FiO2 11/03/18 06:08 131/72 11/03/18 04:00 97.9 79 18 131/71 (91) 100 11/03/18 00:00 97.9 79 18 135/79 (97) 98 11/02/18 21:33 133/78 11/02/18 21:33 81 133/78 11/02/18 21:00 Room Air 11/02/18 20:00 97.6 81 18 133/78 (96) 97 11/02/18 16:00 97.7 79 18 135/83 (100) 95 11/02/18 13:58 143/92 11/02/18 12:05 98.0 91 18 143/92 (109) 95 Intake and Output 11/02/18 11/03/18 19:00 07:00 Intake Total 400 ml 900 ml Output Total 200 ml Balance 200 ml 900 ml Intake Oral 400 ml 900 ml Output Urine Total 200 ml # Voids 1 # Bowel Movements 4 General Appearance: WD/WN, no acute distress HEENT: normocephalic, atraumatic, anicteric, mucous membranes moist Respiratory/Chest: chest wall non-tender, lungs clear, normal breath sounds, no respiratory distress, no accessory muscle use Cardiovascular: normal peripheral pulses, normal rate, regular rhythm Abdomen: normal bowel sounds, soft, non tender, no organomegaly, non distended , no mass Extremities: no cyanosis, no clubbing, no edema Laboratory Tests 11/03/18 06:16: White Blood Count 10.1, Red Blood Count 3.23L, Hemoglobin 9.2L, Hematocrit 29.5L , Mean Corpuscular Volume 91, Mean Corpuscular Hemoglobin 28.3, Mean Corpuscular Hemoglobin Concent 31.1L, Red Cell Distribution Width 18.7H, Platelet Count 166, Mean Platelet Volume 6.9, Neutrophils (%) (Auto) 57.4, Lymphocytes (%) (Auto) 26.9, Monocytes (%) (Auto) 10.6H, Eosinophils (%) (Auto) 3.6H, Basophils (%) (Auto) 1.6, Sodium Level 134L, Potassium Level 6.4*H, Chloride Level 99, Carbon Dioxide Level 22, Anion Gap 12, Blood Urea Nitrogen 91H, Creatinine 6.8H, Estimat Glomerular Filtration Rate 8.3, Glucose Level 99, Calcium Level 8.5, Phosphorus Level 7.4H, Total Bilirubin 0.4, Aspartate Amino Transf (AST/SGOT) 27, Alanine Aminotransferase (ALT/SGPT) 34, Alkaline Phosphatase 164H, Total Protein 6.7, Albumin 1.9L, Globulin 4.8, Albumin/ Globulin Ratio 0.4L Current Medications Medications (Trade) Dose Ordered Sig/Mary Kay Route PRN Reason Start Time Stop Time Status Last Admin Dose Admin Acetaminophen (Tylenol) 650 mg Q6H PRN ORAL Mild Pain/Temp > 100.5 10/04/18 23:30 11/03/18 23:29 Acetaminophen/ Hydrocodone Bitart ([place] 10/325) 1 tab Q4H PRN ORAL For Severe Pain (7-10) 11/02/18 20:15 11/09/18 20:14 11/03/18 06:08 Amlodipine Besylate (Norvasc) 5 mg DAILY ORAL 10/24/18 09:00 11/23/18 08:59 11/02/18 08:45 Carvedilol (Coreg) 25 mg EVERY 12 HOURS ORAL 10/22/18 21:00 11/11/18 20:59 11/02/18 21:33 Docusate Sodium (Colace) 100 mg THREE TIMES A DAY ORAL 10/05/18 13:00 11/04/18 12:59 10/25/18 12:48 Epoetin David (Procrit (for ESRD on dialysis)) 10,000 units THU-THU-THU SUBQ 10/08/18 21:00 11/07/18 20:59 11/01/18 21:20 Fluoxetine HCl (PROzac) 20 mg DAILY ORAL 10/13/18 09:00 11/12/18 08:59 11/02/18 08:45 Folic Acid (Folate) 1 mg DAILY ORAL 10/28/18 09:00 11/04/18 11:03 11/02/18 08:45 Heparin Sodium (Porcine) (Heparin 5000 units/ml) 5,000 units EVERY 12 HOURS SUBQ 10/05/18 09:00 11/04/18 08:59 11/02/18 21:36 Hydralazine HCl (Apresoline) 25 mg Q8HR ORAL 10/27/18 14:00 11/26/18 13:59 11/03/18 06:08 Levothyroxine Sodium (Synthroid) 25 mcg DAILY@0630 ORAL 10/06/18 06:30 11/05/18 06:29 11/03/18 06:08 Mirtazapine (Remeron) 15 mg BEDTIME ORAL 10/20/18 21:00 11/19/18 20:59 11/02/18 21:32 Olanzapine (ZyPREXA) 30 mg BEDTIME ORAL 10/25/18 21:00 11/24/18 20:59 11/02/18 21:32 Ondansetron HCl (Zofran) 4 mg Q4HR PRN IVP Nausea & Vomiting 10/04/18 23:30 11/03/18 23:29 Pantoprazole (Protonix) 40 mg DAILY ORAL 10/05/18 11:02 11/04/18 11:01 11/02/18 08:45 Sevelamer Carbonate (Renvela) 1,600 mg THREE TIMES A DAY ORAL 10/06/18 18:00 11/04/18 12:59 11/02/18 17:31 Sodium Polystyrene Sulfonate (Kayexalate) 30 gm ONCE ORAL 11/03/18 08:30 11/03/18 09:30 Thiamine HCl (Vitamin B1) 100 mg DAILY ORAL 10/10/18 10:00 11/09/18 09:59 11/02/18 08:45 Vitamin B Complex/ Vit C/Folic Acid (Nephrovite) 1 tab DAILY ORAL 10/06/18 09:00 11/05/18 08:59 11/02/18 08:44 Michael Coleman MD 2, 2019 09:14
[2018-11-03] MEDS: Thiamine 100mg tab ORAL SCH (10:21)
[2018-11-03] MEDS: Nephrovite tab (Rena-Vite) ORAL SCH (10:21)
[2018-11-03 12:00] VITALS: BP 121/68
--- NOTE | 2018-11-03 12:29 | Nephrology Progress Note ---
Assessment/Plan Problem List: (1) Cardiomyopathy (2) ESRD on dialysis (3) Bacteremia (4) Homeless (5) Leukocytosis Assessment: strep bacteremia Assessment K elevated today deviates fro renal diet ESRD- Cardiomyopathy Anemia of CKD Hyperkalemia Leukocytosis, ? Line infection FTT (failure to thrive) in adult- malnutrition Homeless Plan off lisinopril- strict diet fu kayexelate po as needed HD 11/04/18 on hydralazine up dose coreg Folate- po Phos binders 2D echo Septal hypokinesis.mid to distal Inferior wall hypokinesis Left ventricular ejection fraction estimated to be 40%. DC planning Subjective ROS Limited/Unobtainable: No Constitutional: Reports: malaise Objective Objective Last 24 Hour Vital Signs Date Time Temp Pulse Resp B/P (MAP) Pulse Ox O2 Delivery O2 Flow Rate FiO2 11/03/18 09:00 Room Air 11/03/18 08:00 97.2 81 16 132/71 (91) 98 11/03/18 06:08 131/72 11/03/18 04:00 97.9 79 18 131/71 (91) 100 11/03/18 00:00 97.9 79 18 135/79 (97) 98 11/02/18 21:33 133/78 11/02/18 21:33 81 133/78 11/02/18 21:00 Room Air 11/02/18 20:00 97.6 81 18 133/78 (96) 97 11/02/18 16:00 97.7 79 18 135/83 (100) 95 11/02/18 13:58 143/92 Intake and Output 11/02/18 11/03/18 18:59 06:59 Intake Total 400 ml 900 ml Output Total 200 ml Balance 200 ml 900 ml Intake Oral 400 ml 900 ml Output Urine Total 200 ml # Voids 1 # Bowel Movements 4 Laboratory Tests 11/03/18 06:16: White Blood Count 10.1, Red Blood Count 3.23L, Hemoglobin 9.2L, Hematocrit 29.5L , Mean Corpuscular Volume 91, Mean Corpuscular Hemoglobin 28.3, Mean Corpuscular Hemoglobin Concent 31.1L, Red Cell Distribution Width 18.7H, Platelet Count 166, Mean Platelet Volume 6.9, Neutrophils (%) (Auto) 57.4, Lymphocytes (%) (Auto) 26.9, Monocytes (%) (Auto) 10.6H, Eosinophils (%) (Auto) 3.6H, Basophils (%) (Auto) 1.6, Sodium Level 134L, Potassium Level 6.4*H, Chloride Level 99, Carbon Dioxide Level 22, Anion Gap 12, Blood Urea Nitrogen 91H, Creatinine 6.8H, Estimat Glomerular Filtration Rate 8.3, Glucose Level 99, Calcium Level 8.5, Phosphorus Level 7.4H, Total Bilirubin 0.4, Aspartate Amino Transf (AST/SGOT) 27, Alanine Aminotransferase (ALT/SGPT) 34, Alkaline Phosphatase 164H, Total Protein 6.7, Albumin 1.9L, Globulin 4.8, Albumin/ Globulin Ratio 0.4L Height (Feet): 5 Height (Inches): 8.00 Weight (Pounds): 125 General Appearance: no apparent distress Cardiovascular: normal rate Respiratory/Chest: decreased breath sounds Abdomen: soft Objective no change David Meyers MD Nov 03, 2018 12:29
--- NOTE | 2018-11-03 12:43 | General Progress Note ---
Assessment/Plan Problem List: (1) Schizophrenia ICD Codes: F20.9 - Schizophrenia, unspecified SNOMED: 23703088 Status: stable, progressing Assessment/Plan Zyprexa 30mg po qhs Remeron 15mg qhs provided ro/st Subjective Neurologic/Psychiatric: Reports: anxiety, depressed, emotional problems Allergies: Coded Allergies: No Known Allergies (Unverified , 10/04/18) Subjective he stated that he has some AH no si/hi Objective Last 24 Hour Vital Signs Date Time Temp Pulse Resp B/P (MAP) Pulse Ox O2 Delivery O2 Flow Rate FiO2 11/03/18 12:00 97.5 81 16 121/68 (85) 98 11/03/18 09:00 Room Air 11/03/18 08:00 97.2 81 16 132/71 (91) 98 11/03/18 06:08 131/72 11/03/18 04:00 97.9 79 18 131/71 (91) 100 11/03/18 00:00 97.9 79 18 135/79 (97) 98 11/02/18 21:33 133/78 11/02/18 21:33 81 133/78 11/02/18 21:00 Room Air 11/02/18 20:00 97.6 81 18 133/78 (96) 97 11/02/18 16:00 97.7 79 18 135/83 (100) 95 11/02/18 13:58 143/92 Intake and Output 11/02/18 11/03/18 19:00 07:00 Intake Total 400 ml 900 ml Output Total 200 ml Balance 200 ml 900 ml Intake Oral 400 ml 900 ml Output Urine Total 200 ml # Voids 1 # Bowel Movements 4 Laboratory Tests 11/03/18 06:16: White Blood Count 10.1, Red Blood Count 3.23L, Hemoglobin 9.2L, Hematocrit 29.5L , Mean Corpuscular Volume 91, Mean Corpuscular Hemoglobin 28.3, Mean Corpuscular Hemoglobin Concent 31.1L, Red Cell Distribution Width 18.7H, Platelet Count 166, Mean Platelet Volume 6.9, Neutrophils (%) (Auto) 57.4, Lymphocytes (%) (Auto) 26.9, Monocytes (%) (Auto) 10.6H, Eosinophils (%) (Auto) 3.6H, Basophils (%) (Auto) 1.6, Sodium Level 134L, Potassium Level 6.4*H, Chloride Level 99, Carbon Dioxide Level 22, Anion Gap 12, Blood Urea Nitrogen 91H, Creatinine 6.8H, Estimat Glomerular Filtration Rate 8.3, Glucose Level 99, Calcium Level 8.5, Phosphorus Level 7.4H, Total Bilirubin 0.4, Aspartate Amino Transf (AST/SGOT) 27, Alanine Aminotransferase (ALT/SGPT) 34, Alkaline Phosphatase 164H, Total Protein 6.7, Albumin 1.9L, Globulin 4.8, Albumin/ Globulin Ratio 0.4L Height (Feet): 5 Height (Inches): 8.00 Weight (Pounds): 125 General Appearance: alert, thin Neurologic: oriented x 3, responsive, depressed affect Minal Nuñez MD Nov 03, 2018 12:43
--- NOTE | 2018-11-03 15:06 | General Progress Note ---
Assessment/Plan Assessment/Plan #. Anemia of kidney disease/esrd -- anemia panel reviewed, has end-stage renal disease, status post missed dialysis via PermCath. --> transfuse on prn basis, if hgb <7 --> no evidence for hemolysis noted --> do not recommend iron at this time --> cont po folic acid and thiamine daily --> HD on permacath R arm --> getting epogen since hd and esrd, also vit b/folic acid --> hemoglobin electrophoresis is normal, no sickle cell trait noted --> no indication for iv iron --> hgb 7.7-->7.6-->7.8-->8.2-->8.6-->9.3 #. Thrombocytopenia due to underlying Hepatitis C. has been chronic --> Trend 200s-->134k-->153k --> afp 2.1, and trend plts as needed --> peripheral smear reviewed --> on abx as per ID #. Leukocytosis likely due to infection. --> Improved/Resolved --> completed IV abx #. Left thigh wound, imaging at [facility] reviewed. No evidence of abscess. --> completed abx as per id --> skin protectant per surg #. IV drug use. #. Homelessness. #. Systemic inflammatory response syndrome. #. Hypothyroidism. #. Hep C -- outpatient eradication #. ESRD on hd 3x a week #. DVT ppx with heparin sq GREATLY APPRECIATE CONSULTATION. Subjective ROS Limited/Unobtainable: No Constitutional: Denies: no symptoms, chills, diaphoresis, fever, malaise, weakness, other HEENT: Denies: no symptoms, eye pain, blurred vision, tearing, double vision, ear pain, ear discharge, nose pain, nose congestion, throat pain, throat swelling, mouth pain, mouth swelling, other Cardiovascular: Denies: no symptoms, chest pain, edema, irregular heart rate, lightheadedness, palpitations, syncope, other Respiratory: Denies: no symptoms, cough, orthopnea, shortness of breath, SOB with excertion, SOB at rest, sputum, stridor, wheezing, other Gastrointestinal/Abdominal: Denies: no symptoms, abdomen distended, abdominal pain, black stools, tarry stools, blood in stool, constipated, diarrhea, difficulty swallowing, nausea, poor appetite, poor fluid intake, rectal bleeding , vomiting, other Genitourinary: Denies: no symptoms, burning, discharge, frequency, flank pain, hematuria, incontinence, pain, urgency, other Neurologic/Psychiatric: Denies: no symptoms, anxiety, depressed, emotional problems, headache, numbness, paresthesia, pre-existing deficit, seizure, tingling, tremors, weakness, other Hematologic/Lymphatic: Denies: no symptoms, anemia, easy bleeding, easy bruising, other Allergies: Coded Allergies: No Known Allergies (Unverified , 10/04/18) Subjective Pt awake and alert. No acute events. HD for today. H/H stable. 10/25: no further iv iron indicated 10/26: blood cultures pending, remains tired, on epo, no EGD/Colon as per patient wishes 10/27: no events noted 10/28: no events, no complaints, relays being in pain, wants pain meds 10/29 hd tomorrow planned 10/30: Pt awake and alert. No acute events. HD for today. 10/31: no events, seen by renal, pending HD for tomorrow, has been noncompliant 11/02: no events, HD planned 11/04, no iv access that is stable at this time 11/03: Pt is awake and resting in bed. Denies acute distress. refusing labs and care,No events, seen by nephro and pulm Objective Last 24 Hour Vital Signs Date Time Temp Pulse Resp B/P (MAP) Pulse Ox O2 Delivery O2 Flow Rate FiO2 11/03/18 13:56 Room Air 11/03/18 12:00 97.5 81 16 121/68 (85) 98 11/03/18 09:00 Room Air 11/03/18 08:00 97.2 81 16 132/71 (91) 98 11/03/18 06:08 131/72 11/03/18 04:00 97.9 79 18 131/71 (91) 100 11/03/18 00:00 97.9 79 18 135/79 (97) 98 11/02/18 21:33 133/78 11/02/18 21:33 81 133/78 11/02/18 21:00 Room Air 11/02/18 20:00 97.6 81 18 133/78 (96) 97 11/02/18 16:00 97.7 79 18 135/83 (100) 95 Intake and Output 11/02/18 11/03/18 18:59 06:59 Intake Total 400 ml 900 ml Output Total 200 ml Balance 200 ml 900 ml Intake Oral 400 ml 900 ml Output Urine Total 200 ml # Voids 1 # Bowel Movements 4 Laboratory Tests 11/03/18 06:16: White Blood Count 10.1, Red Blood Count 3.23L, Hemoglobin 9.2L, Hematocrit 29.5L , Mean Corpuscular Volume 91, Mean Corpuscular Hemoglobin 28.3, Mean Corpuscular Hemoglobin Concent 31.1L, Red Cell Distribution Width 18.7H, Platelet Count 166, Mean Platelet Volume 6.9, Neutrophils (%) (Auto) 57.4, Lymphocytes (%) (Auto) 26.9, Monocytes (%) (Auto) 10.6H, Eosinophils (%) (Auto) 3.6H, Basophils (%) (Auto) 1.6, Sodium Level 134L, Potassium Level 6.4*H, Chloride Level 99, Carbon Dioxide Level 22, Anion Gap 12, Blood Urea Nitrogen 91H, Creatinine 6.8H, Estimat Glomerular Filtration Rate 8.3, Glucose Level 99, Calcium Level 8.5, Phosphorus Level 7.4H, Total Bilirubin 0.4, Aspartate Amino Transf (AST/SGOT) 27, Alanine Aminotransferase (ALT/SGPT) 34, Alkaline Phosphatase 164H, Total Protein 6.7, Albumin 1.9L, Globulin 4.8, Albumin/ Globulin Ratio 0.4L Height (Feet): 5 Height (Inches): 8.00 Weight (Pounds): 125 Objective PHYSICAL EXAMINATION: GENERAL: elderly cachectic-looking gentleman in no respiratory distress NECK: Supple. No jugular venous distention. LUNGS: Ctab, Less coughing CARDIAC: Regular rhythm. holosystolic regurgitant murmur ++ ABDOMEN: Soft and not. ++ bowel sounds. EXTREMITIES: There is no clubbing, no cyanosis. There is no edema. Back: He has extensive ischemic changes in the skin in the inner thigh on both legs with eschar formation. Gordo Jang MD Nov 03, 2018 15:06
[2018-11-03] MEDS ORDERED: COREG25 MG ORAL (15:24)
[2018-11-03] MEDS ORDERED: CALCIUM ACETAT667 M1 PO (15:24)
[2018-11-03] MEDS ORDERED: OLANZAPINE20 MG ORAL (15:25)
[2018-11-03] MEDS ORDERED: DOCUSATE SODIU100 M2 ORAL (15:25)
[2018-11-03] MEDS ORDERED: FOLIC ACID1 M1 PO (15:26)
[2018-11-03] MEDS ORDERED: SYNTHROID50 MCG ORAL (15:26)
[2018-11-03] MEDS ORDERED: MULTIVITAMINS1 EAC8 ORAL (15:27)
[2018-11-03] MEDS ORDERED: ACETAMINOPHEN325 M1 ORAL (15:27)
[2018-11-03] MEDS ORDERED: VITAMIN B-1100 MG ORAL (15:28)
[2018-11-03] MEDS ORDERED: FLUOXETINE HCL20 MG ORAL (15:28)
[2018-11-03] MEDS ORDERED: PANTOPRAZOLE SO40 MG ORAL (15:28)
[2018-11-03] MEDS ORDERED: HYDRALAZINE HCL25 M2 PO (15:29)
[2018-11-03] MEDS ORDERED: REMERON15 M1 ORAL (15:30)
[2018-11-03 16:00] VITALS: BP 125/69
[2018-11-03 20:00] VITALS: BP 143/82
[2018-11-03] MEDS ORDERED: Epogen (for ESRD on dialysis) SUBQ SCH (21:00)
[2018-11-03] MEDS: OLANZapine 10mg tab ORAL SCH (21:08)
--- NOTE | 2018-11-03 21:38 | General Progress Note ---
Assessment/Plan Assessment/Plan Assessment - Anemia, multifactorial - Hepatitis C - Patient declines EGD/Colon - ESRD / HD - malnutrition - poor prison prognosis Recommendations - EPO - PPI - follow labs - push po - no EGD/Colon , per patient wishes (advised he can re-consider as outpatient) - can consider HCV eradication at later date Subjective Allergies: Coded Allergies: No Known Allergies (Unverified , 10/04/18) Subjective Feels same no abdominal symptoms appetite good Objective Last 24 Hour Vital Signs Date Time Temp Pulse Resp B/P (MAP) Pulse Ox O2 Delivery O2 Flow Rate FiO2 11/03/18 21:11 147/80 11/03/18 20:11 76 143/82 11/03/18 20:00 97.0 76 19 143/82 (102) 99 11/03/18 17:26 Room Air 11/03/18 16:00 98.0 97 16 125/69 (87) 97 11/03/18 13:56 Room Air 11/03/18 12:00 97.5 81 16 121/68 (85) 98 11/03/18 09:00 Room Air 11/03/18 08:00 97.2 81 16 132/71 (91) 98 11/03/18 06:08 131/72 11/03/18 04:00 97.9 79 18 131/71 (91) 100 11/03/18 00:00 97.9 79 18 135/79 (97) 98 Intake and Output 11/02/18 11/03/18 19:00 07:00 Intake Total 400 ml 900 ml Output Total 200 ml Balance 200 ml 900 ml Intake Oral 400 ml 900 ml Output Urine Total 200 ml # Voids 1 # Bowel Movements 4 Laboratory Tests 11/03/18 06:16: White Blood Count 10.1, Red Blood Count 3.23L, Hemoglobin 9.2L, Hematocrit 29.5L , Mean Corpuscular Volume 91, Mean Corpuscular Hemoglobin 28.3, Mean Corpuscular Hemoglobin Concent 31.1L, Red Cell Distribution Width 18.7H, Platelet Count 166, Mean Platelet Volume 6.9, Neutrophils (%) (Auto) 57.4, Lymphocytes (%) (Auto) 26.9, Monocytes (%) (Auto) 10.6H, Eosinophils (%) (Auto) 3.6H, Basophils (%) (Auto) 1.6, Sodium Level 134L, Potassium Level 6.4*H, Chloride Level 99, Carbon Dioxide Level 22, Anion Gap 12, Blood Urea Nitrogen 91H, Creatinine 6.8H, Estimat Glomerular Filtration Rate 8.3, Glucose Level 99, Calcium Level 8.5, Phosphorus Level 7.4H, Total Bilirubin 0.4, Aspartate Amino Transf (AST/SGOT) 27, Alanine Aminotransferase (ALT/SGPT) 34, Alkaline Phosphatase 164H, Total Protein 6.7, Albumin 1.9L, Globulin 4.8, Albumin/ Globulin Ratio 0.4L Height (Feet): 5 Height (Inches): 8.00 Weight (Pounds): 125 Objective Thin NAD NCAT supple CTA RR soft ND no edema Cara Berkowitz MD Nov 03, 2018 21:38
[2018-11-04] VITALS: BP 123/72
[2018-11-04 04:00] VITALS: BP 155/88
[2018-11-04] MEDS: HYDROcodone/Acetamin 10/325 tab ORAL PRN ×3 (04:45→13:38)
[2018-11-04] MEDS: Levothyroxine 25mcg tab ORAL SCH (05:59)
[2018-11-04] MEDS: HydrALAZINE 25mg tab ORAL SCH ×2 (05:59→13:42)
[2018-11-04 08:00] VITALS: BP 138/64
[2018-11-04] MEDS: Docusate 100mg cap ORAL SCH (08:59)
[2018-11-04] MEDS: Thiamine 100mg tab ORAL SCH (09:01)
[2018-11-04] MEDS: Carvedilol 25mg Tab ORAL SCH (09:04)
[2018-11-04] MEDS: Nephrovite tab (Rena-Vite) ORAL SCH (09:10)
--- NOTE | 2018-11-04 11:09 | Nephrology Progress Note ---
Assessment/Plan Problem List: (1) Cardiomyopathy (2) ESRD on dialysis (3) Bacteremia (4) Homeless (5) Leukocytosis Assessment: strep bacteremia Assessment K elevated /2 , since is dialysed deviates fro renal diet ESRD- Cardiomyopathy Anemia of CKD Hyperkalemia Leukocytosis, ? Line infection FTT (failure to thrive) in adult- malnutrition Homeless Plan due DC today and OP HD off lisinopril- strict diet fu kayexelate po as needed HD 11/04/18 on hydralazine up dose coreg Folate- po Phos binders 2D echo Septal hypokinesis.mid to distal Inferior wall hypokinesis Left ventricular ejection fraction estimated to be 40%. DC planning Subjective ROS Limited/Unobtainable: No Objective Objective Last 24 Hour Vital Signs Date Time Temp Pulse Resp B/P (MAP) Pulse Ox O2 Delivery O2 Flow Rate FiO2 11/04/18 09:05 80 138/79 11/04/18 09:04 80 138/79 11/04/18 05:59 155/88 11/04/18 04:00 97.7 80 19 155/88 (110) 99 11/04/18 00:00 97.5 66 19 123/72 (89) 99 11/03/18 21:11 147/80 11/03/18 21:00 Room Air 11/03/18 20:11 76 143/82 11/03/18 20:00 97.0 76 19 143/82 (102) 99 11/03/18 17:26 Room Air 11/03/18 16:00 98.0 97 16 125/69 (87) 97 11/03/18 13:56 Room Air 11/03/18 12:00 97.5 81 16 121/68 (85) 98 Intake and Output 11/03/18 11/04/18 19:00 07:00 Intake Total 920 ml 480 ml Output Total 2000 ml Balance -1080 ml 480 ml Intake Oral 920 ml 480 ml Hemodialysis UF 2000 ml # Voids 2 1 # Bowel Movements 4 2 Current Medications Medications (Trade) Dose Ordered Sig/Mary Kay Route PRN Reason Start Time Stop Time Status Last Admin Dose Admin Acetaminophen/ Hydrocodone Bitart ([place] 10/325) 1 tab Q4H PRN ORAL For Severe Pain (7-10) 11/02/18 20:15 11/09/18 20:14 11/04/18 09:09 Amlodipine Besylate (Norvasc) 5 mg DAILY ORAL 10/24/18 09:00 11/23/18 08:59 11/04/18 09:05 Carvedilol (Coreg) 25 mg EVERY 12 HOURS ORAL 10/22/18 21:00 11/11/18 20:59 11/04/18 09:04 Docusate Sodium (Colace) 100 mg THREE TIMES A DAY ORAL 10/05/18 13:00 11/04/18 12:59 10/25/18 12:48 Epoetin David (Procrit (for ESRD on dialysis)) 7,000 units THU-THU-THU SUBQ 11/03/18 21:00 11/07/18 20:59 11/03/18 21:30 Fluoxetine HCl (PROzac) 20 mg DAILY ORAL 10/13/18 09:00 11/12/18 08:59 11/04/18 09:09 Hydralazine HCl (Apresoline) 25 mg Q8HR ORAL 10/27/18 14:00 11/26/18 13:59 11/04/18 05:59 Levothyroxine Sodium (Synthroid) 25 mcg DAILY@0630 ORAL 10/06/18 06:30 11/05/18 06:29 11/04/18 05:59 Mirtazapine (Remeron) 15 mg BEDTIME ORAL 10/20/18 21:00 11/19/18 20:59 11/03/18 20:11 Olanzapine (ZyPREXA) 30 mg BEDTIME ORAL 10/25/18 21:00 11/24/18 20:59 11/03/18 21:08 Sevelamer Carbonate (Renvela) 2,400 mg THREE TIMES A DAY ORAL 11/03/18 13:00 11/04/18 12:59 11/04/18 09:06 Thiamine HCl (Vitamin B1) 100 mg DAILY ORAL 10/10/18 10:00 11/09/18 09:59 11/04/18 09:01 Vitamin B Complex/ Vit C/Folic Acid (Nephrovite) 1 tab DAILY ORAL 10/06/18 09:00 11/05/18 08:59 11/04/18 09:10 Height (Feet): 5 Height (Inches): 8.00 Weight (Pounds): 122 General Appearance: no apparent distress Cardiovascular: normal rate Respiratory/Chest: lungs clear Abdomen: soft Objective no change David Meyers MD Nov 04, 2018 11:09
--- NOTE | 2018-11-04 11:20 | General Progress Note ---
Assessment/Plan Assessment/Plan Assessment - Anemia, multifactorial - Hepatitis C - Patient declines EGD/Colon - ESRD / HD - malnutrition - poor half-way prognosis Recommendations - EPO - PPI - follow labs - push po - patient strongly advised to f/u as outpatient with PMD to undergo EGD/Colon for eval of anemia - Patient advised to have outpatient evaluation for HCV eradication Subjective Allergies: Coded Allergies: No Known Allergies (Unverified , 10/04/18) Subjective Feels same no abdominal symptoms appetite good Objective Last 24 Hour Vital Signs Date Time Temp Pulse Resp B/P (MAP) Pulse Ox O2 Delivery O2 Flow Rate FiO2 11/04/18 09:05 80 138/79 11/04/18 09:04 80 138/79 11/04/18 05:59 155/88 11/04/18 04:00 97.7 80 19 155/88 (110) 99 11/04/18 00:00 97.5 66 19 123/72 (89) 99 11/03/18 21:11 147/80 11/03/18 21:00 Room Air 11/03/18 20:11 76 143/82 11/03/18 20:00 97.0 76 19 143/82 (102) 99 11/03/18 17:26 Room Air 11/03/18 16:00 98.0 97 16 125/69 (87) 97 11/03/18 13:56 Room Air 11/03/18 12:00 97.5 81 16 121/68 (85) 98 Intake and Output 11/03/18 11/04/18 19:00 07:00 Intake Total 920 ml 480 ml Output Total 2000 ml Balance -1080 ml 480 ml Intake Oral 920 ml 480 ml Hemodialysis UF 2000 ml # Voids 2 1 # Bowel Movements 4 2 Height (Feet): 5 Height (Inches): 8.00 Weight (Pounds): 122 Objective Thin NAD NCAT supple CTA RR soft ND no edema Cara Berkowitz MD Nov 04, 2018 11:20
[2018-11-04] MEDS ORDERED: LORazepam Inj 2mg/ml 1ml IM PRN (11:30)
[2018-11-04] MEDS ORDERED: Haloperidol 5mg/ml Inj IM PRN (11:30)
[2018-11-04 12:00] VITALS: BP 140/72
--- NOTE | 2018-11-04 12:22 | Pulmonology Progress Note ---
Assessment/Plan Problems: (1) Hepatitis C (2) Anemia (3) Dialysis patient (4) FTT (failure to thrive) in adult (5) Cellulitis (6) Leukocytosis (7) Homeless (8) Missed dialysis (9) CHF (congestive heart failure) (10) Bacteremia Assessment/Plan Continue current measures HD per renal Pain control/supportive care EPO MVI/thiamine/Folate DVT px: hep SQ F/U biztalk consultant recs Dispo planning Subjective Allergies: Coded Allergies: No Known Allergies (Unverified , 10/04/18) Subjective NITESH, events reviewed No change in chronic pain No F/C/CP/SOB Possible d/c today Objective Last 24 Hour Vital Signs Date Time Temp Pulse Resp B/P (MAP) Pulse Ox O2 Delivery O2 Flow Rate FiO2 11/04/18 09:05 80 138/79 11/04/18 09:04 80 138/79 11/04/18 05:59 155/88 11/04/18 04:00 97.7 80 19 155/88 (110) 99 11/04/18 00:00 97.5 66 19 123/72 (89) 99 11/03/18 21:11 147/80 11/03/18 21:00 Room Air 11/03/18 20:11 76 143/82 11/03/18 20:00 97.0 76 19 143/82 (102) 99 11/03/18 17:26 Room Air 11/03/18 16:00 98.0 97 16 125/69 (87) 97 11/03/18 13:56 Room Air Intake and Output 11/03/18 11/04/18 19:00 07:00 Intake Total 920 ml 480 ml Output Total 2000 ml Balance -1080 ml 480 ml Intake Oral 920 ml 480 ml Hemodialysis UF 2000 ml # Voids 2 1 # Bowel Movements 4 2 General Appearance: no acute distress, cachetic HEENT: normocephalic, atraumatic, anicteric, mucous membranes moist, PERRL Respiratory/Chest: chest wall non-tender, lungs clear, normal breath sounds, no respiratory distress, no accessory muscle use Cardiovascular: normal peripheral pulses, normal rate, regular rhythm Abdomen: normal bowel sounds, soft, non tender, no organomegaly, non distended , no mass Extremities: no cyanosis, no clubbing, no edema Current Medications Medications (Trade) Dose Ordered Sig/Mary Kay Route PRN Reason Start Time Stop Time Status Last Admin Dose Admin Acetaminophen/ Hydrocodone Bitart ([place] 10/325) 1 tab Q4H PRN ORAL For Severe Pain (7-10) 11/02/18 20:15 11/09/18 20:14 11/04/18 09:09 Amlodipine Besylate (Norvasc) 5 mg DAILY ORAL 10/24/18 09:00 11/23/18 08:59 11/04/18 09:05 Carvedilol (Coreg) 25 mg EVERY 12 HOURS ORAL 10/22/18 21:00 11/11/18 20:59 11/04/18 09:04 Docusate Sodium (Colace) 100 mg THREE TIMES A DAY ORAL 10/05/18 13:00 11/04/18 12:59 10/25/18 12:48 Epoetin David (Procrit (for ESRD on dialysis)) 7,000 units THU-THU-THU SUBQ 11/03/18 21:00 11/07/18 20:59 11/03/18 21:30 Fluoxetine HCl (PROzac) 40 mg DAILY ORAL 11/05/18 09:00 12/05/18 08:59 Haloperidol Lactate (Haldol) 5 mg Q6H PRN IM Agitation 11/04/18 11:30 12/04/18 11:29 Hydralazine HCl (Apresoline) 25 mg Q8HR ORAL 10/27/18 14:00 11/26/18 13:59 11/04/18 05:59 Levothyroxine Sodium (Synthroid) 25 mcg DAILY@0630 ORAL 10/06/18 06:30 11/05/18 06:29 11/04/18 05:59 Lorazepam (Ativan 2mg/ml 1ml) 2 mg Q4H PRN IM anxiety 11/04/18 11:30 11/11/18 11:29 Mirtazapine (Remeron) 15 mg BEDTIME ORAL 10/20/18 21:00 11/19/18 20:59 11/03/18 20:11 Olanzapine (ZyPREXA) 30 mg BEDTIME ORAL 10/25/18 21:00 11/24/18 20:59 11/03/18 21:08 Sevelamer Carbonate (Renvela) 2,400 mg THREE TIMES A DAY ORAL 11/03/18 13:00 11/04/18 12:59 11/04/18 09:06 Thiamine HCl (Vitamin B1) 100 mg DAILY ORAL 10/10/18 10:00 11/09/18 09:59 11/04/18 09:01 Vitamin B Complex/ Vit C/Folic Acid (Nephrovite) 1 tab DAILY ORAL 10/06/18 09:00 11/05/18 08:59 11/04/18 09:10 Michael Coleman MD Nov 04, 2018 12:22
[2018-11-04 13:42] VITALS: BP 133/82
--- NOTE | 2018-11-04 17:27 | General Progress Note ---
Assessment/Plan Status: stable Assessment/Plan #. Anemia of kidney disease/esrd -- anemia panel reviewed, has end-stage renal disease, status post missed dialysis via PermCath. --> transfuse on prn basis, if hgb <7 --> no evidence for hemolysis noted --> do not recommend iron at this time --> cont po folic acid and thiamine daily --> HD on permacath R arm --> getting epogen since hd and esrd, also vit b/folic acid --> hemoglobin electrophoresis is normal, no sickle cell trait noted --> no indication for iv iron --> hgb 7.7-->7.6-->7.8-->8.2-->8.6-->9.3 #. Thrombocytopenia due to underlying Hepatitis C. has been chronic --> Trend 200s-->134k-->153k --> afp 2.1, and trend plts as needed --> peripheral smear reviewed --> on abx as per ID #. Leukocytosis likely due to infection. --> Improved/Resolved --> completed IV abx #. Left thigh wound, imaging at [facility] reviewed. No evidence of abscess. --> completed abx as per id --> skin protectant per surg #. IV drug use. #. Homelessness. #. Systemic inflammatory response syndrome. #. Hypothyroidism. #. Hep C -- outpatient eradication #. ESRD on hd 3x a week #. DVT ppx with heparin sq GREATLY APPRECIATE CONSULTATION. Date and time note entered does not reflect time of patient encounter. Subjective Date patient seen: Nov 04, 2018 Hematologic/Lymphatic: Reports: anemia Allergies: Coded Allergies: No Known Allergies (Unverified , 10/04/18) All Systems: reviewed and negative except above Subjective Pt awake and alert. No acute events. HD for today. H/H stable. 10/25: no further iv iron indicated 10/26: blood cultures pending, remains tired, on epo, no EGD/Colon as per patient wishes 10/27: no events noted 10/28: no events, no complaints, relays being in pain, wants pain meds 10/29 hd tomorrow planned 10/30: Pt awake and alert. No acute events. HD for today. 10/31: no events, seen by renal, pending HD for tomorrow, has been noncompliant 11/02: no events, HD planned 11/04, no iv access that is stable at this time 11/03: Pt is awake and resting in bed. Denies acute distress. refusing labs and care,No events, seen by nephro and pulm 11/04: Pt awake and alert. No acute events. VS stable. DC planning. Objective Last 24 Hour Vital Signs Date Time Temp Pulse Resp B/P (MAP) Pulse Ox O2 Delivery O2 Flow Rate FiO2 11/04/18 13:42 133/82 11/04/18 12:00 97.8 76 18 140/72 (94) 97 11/04/18 09:05 80 138/79 11/04/18 09:04 80 138/79 11/04/18 09:00 Room Air 11/04/18 08:00 97.7 74 17 138/64 (88) 98 11/04/18 05:59 155/88 11/04/18 04:00 97.7 80 19 155/88 (110) 99 11/04/18 00:00 97.5 66 19 123/72 (89) 99 11/03/18 21:11 147/80 11/03/18 21:00 Room Air 11/03/18 20:11 76 143/82 11/03/18 20:00 97.0 76 19 143/82 (102) 99 11/03/18 17:26 Room Air Intake and Output 11/03/18 11/04/18 18:59 06:59 Intake Total 920 ml 480 ml Output Total 2000 ml Balance -1080 ml 480 ml Intake Oral 920 ml 480 ml Hemodialysis UF 2000 ml # Voids 2 1 # Bowel Movements 4 2 Height (Feet): 5 Height (Inches): 8.00 Weight (Pounds): 122 Objective PHYSICAL EXAMINATION: GENERAL: elderly cachectic-looking gentleman in no respiratory distress NECK: Supple. No jugular venous distention. LUNGS: Ctab, Less coughing CARDIAC: Regular rhythm. holosystolic regurgitant murmur ++ ABDOMEN: Soft and not. ++ bowel sounds. EXTREMITIES: There is no clubbing, no cyanosis. There is no edema. Back: He has extensive ischemic changes in the skin in the inner thigh on both legs with eschar formation. Gordo Jang MD Nov 04, 2018 17:27
--- NOTE | 2018-11-04 23:25 | General Progress Note ---
Assessment/Plan Problem List: (1) Schizophrenia ICD Codes: F20.9 - Schizophrenia, unspecified SNOMED: [id number] Status: stable Assessment/Plan Zyprexa 30mg po qhs Remeron 15mg qhs provided ro/st Subjective Neurologic/Psychiatric: Reports: anxiety, depressed, emotional problems Allergies: Coded Allergies: No Known Allergies (Unverified , 10/04/18) Subjective the pt is doing well Objective Last 24 Hour Vital Signs Date Time Temp Pulse Resp B/P (MAP) Pulse Ox O2 Delivery O2 Flow Rate FiO2 11/04/18 13:42 133/82 11/04/18 12:00 97.8 76 18 140/72 (94) 97 11/04/18 09:05 80 138/79 11/04/18 09:04 80 138/79 11/04/18 09:00 Room Air 11/04/18 08:00 97.7 74 17 138/64 (88) 98 11/04/18 05:59 155/88 11/04/18 04:00 97.7 80 19 155/88 (110) 99 11/04/18 00:00 97.5 66 19 123/72 (89) 99 Intake and Output 11/03/18 11/04/18 19:00 07:00 Intake Total 920 ml 480 ml Output Total 2000 ml Balance -1080 ml 480 ml Intake Oral 920 ml 480 ml Hemodialysis UF 2000 ml # Voids 2 1 # Bowel Movements 4 2 Height (Feet): 5 Height (Inches): 8.00 Weight (Pounds): 122 General Appearance: alert, thin Neurologic: oriented x 3, responsive, depressed affect Minal Nuñez MD Nov 04, 2018 23:25
--- NOTE | 2018-11-05 14:23 | Discharge Summary ---
Discharge Summary Discharge Summary _ DATE OF ADMISSION: 10/04/2018 DATE OF DISCHARGE: 11/04/2018 DISCHARGED BY: Dr. Michael Coleman CONSULTANTS: Dr. David De La Cruz BRIEF HOSPITAL COURSE: Patient is an unfortunate, homeless, 62-year-old male, with history of IV drug use and end-stage renal disease on hemodialysis via right chest wall permacath, with left hip cellulitis, wound infection, hepatitis C, anemia of chronic disease, presented to ED complaining of generalized weakness after multiple hospitalizations. Patient was recently admitted to [facility] and then to [facility]. He [facility] 10[facility]. Basically he was admitted due to missed dialysis and volume overload. He was dialyzed, he was started on IV vancomycin. He had a recent left thigh incision and drainage done at [facility]. CT results done at [facility] showed a left hip subcutaneous emphysema, but no focal fluid collection. He was found to be positive for hepatitis C and HIV negative. He left AMA before any of workup could be done and before outpatient dialysis was arranged. He then presented to [place] [facility], 5 days later, with generalized weakness, shortness of breath and electrolyte abnormalities. He had shortness of breath and have missed dialysis since since his discharge. Evaluation at the ED showed WBC of 17, hemoglobin 9.8, hematocrit 31. Creatinine was 7.9, BUN 65, potassium 5.1. He was then admitted for end-stage renal disease, with missed dialysis, for evaluation of left thigh wound, leukocytosis. [place] was consulted. Patient was given inpatient hemodialysis. He was given phosphate binders. ID was consulted. Patient had sepsis syndrome, with tachycardia and elevated white count. Blood culture was showing gram-positive cocci. He was started empirically on vancomycin and cefepime to cover for bacteremia and soft tissue infection. He underwent cardiac evaluation. Patient had cardiomyopathy, likely ischemic based, there was no segmental wall motion abnormalities. Patient was with congestive heart failure. He was given JORDY inhibitor, beta-lyla. Cardiac enzymes were negative. Echocardiogram was done. EF 40% with septal hypokinesis and inferior wall hypokinesis. Echocardiogram did not show any vegetation. Surgical consultation was obtained. Patient had multiple wounds on bilateral lower extremities and arms with some were self-inflicted. Lower extremity cellulitis with prior I&D was noted, no drainage seen. Patient expressed tenderness even prior to being touched and asks for pain medications. Was stable but slowly healing. Patient had been noncompliant with wound care. He was recommended wound care. GI was consulted. Patient has history of hepatitis C. Patient was noted to have anemia. Hepatitis C can be eradicated with newer regimen available, however can be started as outpatient as this would require serial follow-up and monitoring. Patient had anemia however with elevated ferritin, IV iron was discontinued. He refuses any colonoscopy or endoscopy. He was given folate. Surveillance blood culture were negative. Urine culture without any growth. 2 types of Streptococcus species, blood culture likely contaminant. Antibiotic was switched to oral doxycycline 100 mg twice daily and Augmentin 500 mg 3 times daily. Patient was uncooperative and was refusing medications. Patient with history of schizophrenia. Psychiatric evaluation was done. He was given Zyprexa and Remeron. He had episodes of elevated potassium and was given Kayexalate. Blood pressure was elevated he was given hydralazine and Coreg. Social service/case management was called to aid in placement. He was eventually discharged to [facility] with outpatient dialysis arranged with renal, with shared time every Thursday, and Thursday at 1345, transportation to be set up with [employer]. Patient and was eventually discharged to recuperative care. FINAL DIAGNOSES: SIRS/sepsis from bacteremia, left lower extremity wound cellulitis Strep bacteremia, likely contaminant Left lower extremity wound cellulitis status post recent I&D, present on admission End-stage renal disease on hemodialysis Anemia of kidney disease and chronic disease Thrombocytopenia due to underlying hepatitis C Hypothyroidism Cardiomyopathy, likely nonischemic Schizophrenia Hyperkalemia Hyponatremia Failure to thrive Homelessness Noncompliance DISPOSITION: Patient was discharged to recuperative care DISCHARGE MEDICATIONS: Refer to Discharge Medication List. DISCHARGE INSTRUCTIONS: Follow-up in a week. I have been assigned to dictate discharge summary on this account, and I was not involved in the patient's management. Ludmila Aguirre NP Nov 05, 2018 14:23
[2018-11-05] MEDS ORDERED: OLANZAPINE10 MG ORAL (14:34)
[2018-11-05] MEDS ORDERED: REMERON15 M1 ORAL (14:34)
[2018-11-05] MEDS ORDERED: MULTIVITAMINS1 EAC2 ORAL (17:15)
[2018-11-05] MEDS ORDERED: ZYPREXA10 MG ORAL (17:15)
[2018-11-05] MEDS ORDERED: CALCIUM ACETAT667 M1 PO (17:18)
[2018-11-05] MEDS ORDERED: ACETAMINOPHEN325 M1 ORAL (17:18)
[2018-11-05] MEDS ORDERED: VITAMIN B COMP1 EAC2 ORAL (17:21)
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
== END 2018-11-04 16:52 | DRG 720 ==
LOC: EMR 18:59 → 4E 20:50 → EDBEDREQ 21:40 → 4E 10-05 01:20
PROC: 5A1D70Z Performance of Urinary Filtration, Intermittent, Less than 6 Hours Per Day (ICD-10-PCS; principal; 2018-10-05)
DX: A41.9 Sepsis, unspecified organism (principal); I50.23 Acute on chronic systolic (congestive) heart failure; D69.6 Thrombocytopenia, unspecified; E46 Unspecified protein-calorie malnutrition; E87.5 Hyperkalemia; E87.1 Hypo-osmolality and hyponatremia; N18.6 End stage renal disease; I42.9 Cardiomyopathy, unspecified; K74.60 Unspecified cirrhosis of liver; F20.9 Schizophrenia, unspecified; L03.116 Cellulitis of left lower limb; Z59.0 Homelessness; Z99.2 Dependence on renal dialysis; Z91.15 Patient's noncompliance with renal dialysis; B19.20 Unspecified viral hepatitis C without hepatic coma; D63.1 Anemia in chronic kidney disease; D50.9 Iron deficiency anemia, unspecified; R62.7 Adult failure to thrive; Z68.1 Body mass index [BMI] 19.9 or less, adult; E03.9 Hypothyroidism, unspecified; Z72.0 Tobacco use
CPT/HCPCS: 36415; 71045; 72114; 76700; 80048; 80053; 80061; 80076; 80202; 80307; 81001; 82105; 82607; 82728; 82746; 82962; 82977; 83020; 83036; 83540; 83550; 83605; 83735; 83880; 83970; 84100; 84165; 84238; 84443; 84484; 84550; 85007; 85025; 85044; 85060; 85384; 85610; 85651; 85660; 86140; 86703; 86705; 86709; 86803; 87040; 87081; 87086; 87181; 87340; 93005; 93306; 96365; 99284

== ENCOUNTER 2018-11-05 14:26 | Inpatient (IN) | payer MEDICAID ==
[~2018-11-05] VITALS: Ht 172.7 cm; Wt 54.9 kg
[~2018-11-05 14:26] MED LIST: ACETAMINOPHEN325 M1 ORAL; CALCIUM ACETAT667 M1 PO; COREG25 MG ORAL; DOCUSATE SODIU100 M2 ORAL; FLUOXETINE HCL20 MG ORAL; FOLIC ACID1 M1 PO; HYDRALAZINE HCL25 M2 PO; MULTIVITAMINS1 EAC8 ORAL; OLANZAPINE20 MG ORAL; PANTOPRAZOLE SO40 MG ORAL; REMERON15 M1 ORAL; SYNTHROID50 MCG ORAL; VITAMIN B-1100 MG ORAL
[2018-11-05] MEDS ORDERED: REMERON15 M1 ORAL (14:34)
[2018-11-05] MEDS ORDERED: OLANZAPINE10 MG ORAL (14:34)
[2018-11-05 14:36] VITALS: BP 157/84
--- NOTE | 2018-11-05 14:36 | NUR ---
ED Nurse Note: Pt came in with [facility] from [facility]. pt has skin injuries on both left and right inner thigh and an small wound on the upper anterior left chest shoulder prior to arrival. pt c/o pain in the lower back due to fall in bathroom outside facility. pt denies hitting his head. pt has an AV shunt on the upper right anterior chest. pt dialysis schedule per pt is , , and thursday. will continue to monitor pt and await further orders.
[2018-11-05] MEDS ORDERED: oxyCODONE HCL/Acetaminophen 5/325mg ORAL ONE (15:15)
[2018-11-05 15:21] LABS: BASOPHILS % (AUTO) 1.1 % (0.0-2.0); EOSINOPHILS % (AUTO) 2.8 % (0.0-3.0); HEMOGLOBIN 10.7 G/DL (14.2-18.0); MEAN CORPUSCULAR VOLUME 92 FL (80-99); MONOCYTES % (AUTO) 7.8 % (1.0-10.0); NEUTROPHILS % (AUTO) 69.3 % (45.0-75.0); PLATELET COUNT 176 K/UL (150-450); WHITE BLOOD COUNT 8.1 K/UL (4.8-10.8)
[2018-11-05 15:35] LABS: ANION GAP 16 mmol/L (5-15); BLOOD UREA NITROGEN 81 mg/dL (7-18); CALCIUM 8.3 MG/DL (8.5-10.1); CARBON DIOXIDE 20 MMOL/L (21-32); CHLORIDE 100 MMOL/L (98-107); CREATININE 6.9 MG/DL (0.55-1.30); POTASSIUM 4.7 MMOL/L (3.5-5.1); SODIUM 136 MMOL/L (136-145)
[2018-11-05 15:48] LABS: ALANINE AMINOTRANSFERASE 36 U/L (12-78); ALBUMIN 2.2 G/DL (3.4-5.0); ALBUMIN/GLOBULIN RATIO 0.4 (1.0-2.7); ALKALINE PHOSPHATASE 164 U/L (46-116); ASPARTATE AMINO TRANSFERASE 28 U/L (15-37); BILIRUBIN,TOTAL 0.5 MG/DL (0.2-1.0); CKMB 1.6 NG/ML (0.0-3.6); CREATINE KINASE 49 U/L (26-308)
--- NOTE | 2018-11-05 16:51 | NUR ---
ED Nurse Note: Medication bottles collected and given to pharmacy technician traineeNegrito. Receipt # [id number] and [id number]. Addendum: 11/05/18 at 1700 by DAYO Recepits are in the chart.
--- NOTE | 2018-11-05 17:00 | Emergency Room Report ---
History of Present Illness General Chief Complaint: Generalized Weakness Source: Patient, EMS Present Illness HPI 62-year-old male presents ED for evaluation. Complaining of weakness. States he missed dialysis today because he wasn't feeling well. States he fell in the bathroom today. Hit his head. Complaining of back pain and hip pain. Denies LOC. Pain is throbbing, 8 out of 10, nonradiating. Denies any other injuries. Denies chest pain or shortness of breath. Patient states he was discharged yesterday from [facility] to recuperative care. States that the recuperative care will not accept him back because he is unable to take care of himself. No other aggravating relieving factors. Denies any other associated symptoms Allergies: Coded Allergies: No Known Allergies (Unverified , 10/04/18) Patient History Past Medical History: psych hx, renal disease, dialysis Past Surgical History: none Pertinent Family History: none Social History: Denies: smoking, alcohol use, drug use Immunizations: UTD Reviewed Nursing Documentation: PMH: Agreed; PSxH: Agreed Nursing Documentation-PMH Hx Cardiac Problems: No - HEP C, FTT, Cellulitis, hypothyroidism Hx Cancer: No Hx Gastrointestinal Problems: Yes Hx Dialysis: Yes - M, W, F History Of Psychiatric Problem: Yes - anxiety depression Hx Neurological Problems: Yes - chronic back pain Review of Systems All Other Systems: negative except mentioned in HPI Physical Exam Vital Signs Date Time Temp Pulse Resp B/P (MAP) Pulse Ox O2 Delivery O2 Flow Rate FiO2 11/05/18 14:26 97.0 82 18 142/76 99 Room Air Sp02 EP Interpretation: reviewed, normal General Appearance: no apparent distress, alert, GCS 15, non-toxic, cachetic, thin Head: normocephalic, atraumatic Eyes: bilateral eye normal inspection, bilateral eye PERRL ENT: hearing grossly normal, normal pharynx, no angioedema, normal voice Neck: full range of motion, supple/symm/no masses Respiratory: chest non-tender, lungs clear, normal breath sounds, speaking full sentences Cardiovascular #1: regular rate, rhythm, no edema Cardiovascular #2: 2+ carotid (R), 2+ carotid (L), 2+ radial (R), 2+ radial (L) , 2+ dorsalis pedis (R), 2+ dorsalis pedis (L) Gastrointestinal: normal bowel sounds, non tender, soft, non-distended, no guarding, no rebound Rectal: deferred Genitourinary: normal inspection, no CVA tenderness Musculoskeletal: back normal, gait/station normal, normal range of motion, tender - pelvis Neurologic: alert, oriented x3, responsive, motor strength/tone normal, sensory intact, speech normal Psychiatric: judgement/insight normal, memory normal, mood/affect normal, no suicidal/homicidal ideation Reflexes: 3+ bicep (R), 3+ bicep (L), 3+ tricep (R), 3+ tricep (L), 3+ knee (R) , 3+ knee (L) Skin: normal color, no rash, warm/dry, well hydrated Lymphatic: no adenopathy Medical Decision Making Diagnostic Impression: Primary Impression: ESRD on dialysis Additional Impressions: FTT (failure to thrive) in adult Fall Qualified Codes: W19.XXXS - Unspecified fall, sequela Episode of generalized weakness Labs Test 11/05/18 15:11 White Blood Count 8.1 K/UL (4.8-10.8) Red Blood Count 3.80 M/UL (4.70-6.10) Hemoglobin 10.7 G/DL (14.2-18.0) Hematocrit 35.0 % (42.0-52.0) Mean Corpuscular Volume 92 FL (80-99) Mean Corpuscular Hemoglobin 28.1 PG (27.0-31.0) Mean Corpuscular Hemoglobin Concent 30.5 G/DL (32.0-36.0) Red Cell Distribution Width 19.0 % (11.6-14.8) Platelet Count 176 K/UL (150-450) Mean Platelet Volume 5.7 FL (6.5-10.1) Neutrophils (%) (Auto) 69.3 % (45.0-75.0) Lymphocytes (%) (Auto) 19.0 % (20.0-45.0) Monocytes (%) (Auto) 7.8 % (1.0-10.0) Eosinophils (%) (Auto) 2.8 % (0.0-3.0) Basophils (%) (Auto) 1.1 % (0.0-2.0) Sodium Level 136 MMOL/L (136-145) Potassium Level 4.7 MMOL/L (3.5-5.1) Chloride Level 100 MMOL/L (98-107) Carbon Dioxide Level 20 MMOL/L (21-32) Anion Gap 16 mmol/L (5-15) Blood Urea Nitrogen 81 mg/dL (7-18) Creatinine 6.9 MG/DL (0.55-1.30) Estimat Glomerular Filtration Rate 8.1 mL/min (>60) Glucose Level 103 MG/DL (74-106) Calcium Level 8.3 MG/DL (8.5-10.1) Total Bilirubin 0.5 MG/DL (0.2-1.0) Aspartate Amino Transf (AST/SGOT) 28 U/L (15-37) Alanine Aminotransferase (ALT/SGPT) 36 U/L (12-78) Alkaline Phosphatase 164 U/L (46-116) Total Creatine Kinase 49 U/L (26-308) Creatine Kinase MB 1.6 NG/ML (0.0-3.6) Creatine Kinase MB Relative Index 3.2 Troponin I 0.003 ng/mL (0.000-0.056) Pro-B-Type Natriuretic Peptide > 10992 pg/mL (0-125) Total Protein 7.1 G/DL (6.4-8.2) Albumin 2.2 G/DL (3.4-5.0) Globulin 4.9 g/dL Albumin/Globulin Ratio 0.4 (1.0-2.7) EKG Diagnostic Results Rate: normal Rhythm: NSR ST Segments: no acute changes ASA given to the pt in ED: No Rhythm Strip Diag. Results EP Interpretation: yes Rhythm: NSR, no PVC's, no ectopy Chest X-Ray Diagnostic Results Chest X-Ray Diagnostic Results : Chest X-Ray Ordered: Yes # of Views/Limited/Complete: 1 View Indication: Other - weakness EP Interpretation: Yes Interpretation: no pneumothorax, no acute cardiopulmonary disease, other - interstitial edema. permacath Impression: Other - chf Electronically Signed by: Electronically signed by Mariano Thompson MD CT/MRI/US Diagnostic Results CT/MRI/US Diagnostic Results #1: Imaging Test Ordered: CT Head Impression no acute process CT/MRI/US Diagnostic Results #2: Imaging Test Ordered: CT Pelvis Impression no acute process Last Vital Signs Date Time Temp Pulse Resp B/P (MAP) Pulse Ox O2 Delivery O2 Flow Rate FiO2 11/05/18 16:29 97.0 11/05/18 14:36 84 17 157/84 100 Room Air Status: improved Disposition: ADMITTED INPATIENT Condition: Serious Referrals: Michael Coleman MD (PCP) Mariano Thompson MD Nov 05, 2018 17:00
--- NOTE | 2018-11-05 17:13 | Emergency Room Report ---
Physical Exam Vital Signs Date Time Temp Pulse Resp B/P (MAP) Pulse Ox O2 Delivery O2 Flow Rate FiO2 11/05/18 14:26 97.0 82 18 142/76 99 Room Air Medical Decision Making Diagnostic Impression: Primary Impression: ESRD on dialysis Additional Impressions: Episode of generalized weakness FTT (failure to thrive) in adult Fall Qualified Codes: W19.XXXS - Unspecified fall, sequela ER Course Hospital Course 62-year-old male presents ED with weakness. Fell today. Missed dialysis Differential diagnoses include: ID/unstable angina, fluid overload, CHF exacerabation, hyperkalemia, uremia Clinical course Patient placed on stretcher. on cardiac exercise specialist. After initial history and physical I ordered labs, EKG, chest x-ray, CT head and Pelvis labs reviewed- BUN/Cr elevated. K ok no leukocytosis, hemoglobin/hematocrit stable EKG - NSR, no acute ischemic changes interpreted by me Chest x-ray- cardiomegaly, permacath, interstitial edema CT Head and Pelvis - no acute process Recuperative care contacted. Stated that they will not accept patient back to their facility. patient will require admission for placement Case discussed with Dr. Coleman and he agreed to accept the patient to his service for further care and support I. I feel this is a highly complex case requiring extensive working including EKG/Rhythm strip, Xray/CT/US, Blood/urine lab work, repeat exams while in ED, and administration of strong opiates/narcotics for pain control, admission to hospital or close patient follow up. Diagnosis - ESRD on dialysis, FTT in adult, fall, generalized weakness admitted to floor in serious condition Last Vital Signs Date Time Temp Pulse Resp B/P (MAP) Pulse Ox O2 Delivery O2 Flow Rate FiO2 11/05/18 16:29 97.0 11/05/18 14:36 84 17 157/84 100 Room Air Status: improved Disposition: ADMITTED INPATIENT Condition: Serious Referrals: Michael Coleman MD (PCP) Mariano Thompson MD Nov 05, 2018 17:13
[2018-11-05] MEDS ORDERED: MULTIVITAMINS1 EAC2 ORAL (17:15)
[2018-11-05] MEDS ORDERED: ZYPREXA10 MG ORAL (17:15)
[2018-11-05] MEDS ORDERED: CALCIUM ACETAT667 M1 PO (17:18)
[2018-11-05] MEDS ORDERED: ACETAMINOPHEN325 M1 ORAL (17:18)
[2018-11-05] MEDS ORDERED: VITAMIN B COMP1 EAC2 ORAL (17:21)
--- NOTE | 2018-11-05 17:23 | NUR ---
ED Nurse Note: PT SENT TO 417-1 WITH ALL BELONGINGS ASSISTED BY SERENE ENGLISH. PT IS VSS.
[2018-11-05 17:53] VITALS: BP 149/85
--- NOTE | 2018-11-05 18:49 | NUR ---
NURSE NOTES: Report received from PRISCILLA Colón in ED. Pt brought to 417-1 from ED at 1715. Vitals obtained and assessment done, see charting. Pt is A/O x4, no distress noted, no complaints of pain at this time, Pt stated the Percocet given in ED works well to control pain in back and legs. Oriented pt to room, call light, bed controls, communication board. Bed in lowest position, call light within reach. Call Dr. Coleman for orders at [phone].
[2018-11-05 20:00] VITALS: BP 152/97
[2018-11-05] MEDS ORDERED: Norco 5mg/325mg tab ORAL PRN (20:00)
[2018-11-05] MEDS: HydrALAZINE 25mg tab ORAL SCH (21:25)
[2018-11-05] MEDS: HYDROcodone/Acetamin 10/325 tab ORAL PRN (21:26)
[2018-11-05] MEDS: Carvedilol 25mg Tab ORAL SCH (21:26)
[2018-11-05] MEDS: OLANZapine 10mg tab ORAL SCH (21:31)
--- NOTE | 2018-11-05 21:44 | NUR ---
NURSE NOTES: Patient in bed, awake, alert and verbally responsive. Able to make needs known. Kept clean and comfortable. Provided safe environment. Refused to have dressings checked, skin is warm. Noted with multiple ecchymosis on upper extremity. Iv site noted, patent. Call light is at bedside. Will continue plan of care.
[2018-11-06] VITALS (7 sets, daily range): BP systolic 119–138; BP diastolic 68–88
[2018-11-06] MEDS: HYDROcodone/Acetamin 10/325 tab ORAL PRN ×5 (01:05→21:17)
--- NOTE | 2018-11-06 01:10 | NUR ---
NURSE NOTES: Patient complained of lower back pain, scale 10/10 aching. Given PRN pain medication, will reassess patient. Call light is at bedside. Will continue plan of care.
[2018-11-06] MEDS: HydrALAZINE 25mg tab ORAL SCH ×3 (05:46→21:17)
[2018-11-06] MEDS: Levothyroxine 25mcg tab ORAL SCH (05:46)
--- NOTE | 2018-11-06 07:11 | NUR ---
HAND-OFF: Report given to PRISCILLA Ferreira.
[2018-11-06 08:32] LABS: BASOPHILS % (AUTO) 1.5 % (0.0-2.0); HEMATOCRIT 28.1 % (42.0-52.0); HEMOGLOBIN 8.8 G/DL (14.2-18.0); LYMPHOCYTES % (AUTO) 19.5 % (20.0-45.0); MEAN CORPUSCULAR VOLUME 91 FL (80-99); MONOCYTES % (AUTO) 8.4 % (1.0-10.0); NEUTROPHILS % (AUTO) 66.6 % (45.0-75.0); PLATELET COUNT 161 K/UL (150-450); RED BLOOD COUNT 3.08 M/UL (4.70-6.10); WHITE BLOOD COUNT 9.5 K/UL (4.8-10.8)
--- NOTE | 2018-11-06 08:35 | NUR ---
CASE MANAGEMENT:REVIEW 62 YR OLD MALE FROM [facility] CC: MISSED DIALYSIS. S/P FALL. BACK PAIN SI: ESRD ON HD. GENERALIZED WEAKNESS FTT. FALL 97.0 82 18 142/76 99% ON RA H/H-10.7/35.0 BUN+81 CR+6.9 BNP>[id number] IS: PERCOCET PO X1 CT HEAD AND PELVIS CXR : TO MED/SURG 4EAST IS: NORCO 10/325 PO Q4HRS PRN FOLATE PO QD MVI PO QD PROTONIX PO QD THIAMINE PO QD SYNTHROID PO QD HYDRALAZINE PO Q8HR COREG PO Q12
--- NOTE | 2018-11-06 08:45 | NUR ---
INTERQUAL CRITERIA MET FOR OBSERVATION WILL REFER TO SNF'S TO SEE WHO WILL ACCEPT
[2018-11-06] MEDS: Carvedilol 25mg Tab ORAL SCH ×2 (08:47→21:17)
[2018-11-06] MEDS: Docusate 100mg cap ORAL SCH ×3 (08:47→16:51)
[2018-11-06] MEDS: Thiamine 100mg tab ORAL SCH (08:48)
[2018-11-06] MEDS: Vitamin B Complex Tab ORAL SCH (08:48)
--- NOTE | 2018-11-06 08:53 | NUR ---
DISCHARGE PLANNING [facility] [address] [place] [address] [facility] [address] [place] [address] SECURE TRANSPORTATION [phone] CONF # [id number] (HD) DISCHARGE PLANNING ORDER NOTED JAVASCRIPT ENGINEER WILL REFER TO [facility]..AWAITING H& P Addendum: 11/06/18 at 0913 by DASHAWN RAMIREZ LVN LVN REFERRED TO/FAXED CLINICALS TO: 1) [facility] T: [phone] F; [phone] 2) [facility] T: [phone] F: [phone] 3) [facility] T: [phone] F: [phone] 4) [facility]AT[facility] RODRIGUE[facility] T:[phone] F: [phone] 5) [facility] T: [phone] F: [phone] Addendum: 11/06/18 at 1629 by DASHAWN RAMIREZ LVN LVN SPOKE WITH KOBI AT [facility] SHE HAS BEEN IN TOUCH WITH [employer] JAVASCRIPT ENGINEER, BETH, REGARDING THIS PATIENT SHE [place] [facility] [place] THEN SHE WILL ASSIGN A BED FOLLOW UP ON THURSDAY
[2018-11-06 08:55] LABS: ALANINE AMINOTRANSFERASE 37 U/L (12-78); ALBUMIN/GLOBULIN RATIO 0.5 (1.0-2.7); ALKALINE PHOSPHATASE 160 U/L (46-116); ANION GAP 14 mmol/L (5-15); ASPARTATE AMINO TRANSFERASE 27 U/L (15-37); BILIRUBIN,TOTAL 0.5 MG/DL (0.2-1.0); BLOOD UREA NITROGEN 87 mg/dL (7-18); CALCIUM 7.8 MG/DL (8.5-10.1); CARBON DIOXIDE 20 MMOL/L (21-32); CHLORIDE 102 MMOL/L (98-107); CREATININE 7.4 MG/DL (0.55-1.30); POTASSIUM 4.7 MMOL/L (3.5-5.1); SODIUM 136 MMOL/L (136-145)
[2018-11-06] MEDS: OLANZapine 10mg tab ORAL SCH (10:22)
--- NOTE | 2018-11-06 10:54 | NUR ---
NURSE NOTES: pt awake alert, no distress. no sob. refused stool softener , c/o diarrhea, upon looking at stool, rn noted not watery but very soft stool. Dr Coleman made aware , got order for cdiff, stool specimen collected and sent to lab. also pt request for percocet as "it's more effective" and request for antidiarrheal, left msg for Dr Coleman, waiting for response.
--- NOTE | 2018-11-06 11:40 | History & Physical ---
History and Physical History & Physicial DATE OF ADMISSION: 11/05/2017 REASON FOR ADMISSION: Generalized weakness HISTORY OF PRESENT ILLNESS: The patient is a very unfortunate homeless male with a history of IV drug use and end-stage renal disease, on dialysis via right chest wall PermCath with multiple medical problems admitted 10/04/18 - 11/04/17 mainly for placement issues, discharged one day prior to admission now back with failure to thrive, missed HD and the facility unable to care for him. He has no new complaints. He has chronic pain which is unchanged from prior. No F/C/MCKEON/dizziness/CP/SOB/N/V/D/C/abdominal pain. He is planned for HD today PAST MEDICAL HISTORY: 1. End-stage renal disease, on dialysis via right chest wall PermCath. 2. IV drug use. 3. Hepatitis C. 4. Anemia. 5. Questionable CAD. ALLERGIES: Penicillin. MEDICATIONS: Active Scripts Medications Dose Route/Sig Max Daily Dose Days Date Category Dose Instructions Vitamin B Complex 1 Each Capsule 1 Cap ORAL DAILY 11/05/18 Reported Calcium Acetate 667 Mg Capsule 1,334 Mg PO THREE TIMES A DAY 11/05/18 Reported Acetaminophen 325MG Tablet* (Acetaminophen) 325 Mg Tablet 650 Mg ORAL Q6H PRN 11/05/18 Reported Multivitamins* (Multivitamins) 1 Each Tablet 1 Tab ORAL DAILY 11/05/18 Reported Zyprexa* (Olanzapine) 10 Mg Tablet 30 Mg ORAL DAILY 11/05/18 Reported Remeron (Mirtazapine) 15 Mg Tab.rapdis 15 Mg ORAL BEDTIME 11/03/18 Reported Hydralazine HCl 25 Mg Tablet 25 Mg PO Q8HR 11/03/18 Reported Vitamin B-1* (Thiamine HCl) 100 Mg Tablet 100 Mg ORAL DAILY 11/03/18 Reported Fluoxetine Hcl* (Fluoxetine HCl) 20 Mg Capsule 20 Mg ORAL DAILY 11/03/18 Reported Pantoprazole* (Pantoprazole) 40 Mg Tablet.dr 40 Mg ORAL DAILY 11/03/18 Reported Synthroid (Levothyroxine Sodium) 50 Mcg Tablet 25 Mcg ORAL DAILY 11/03/18 Reported Take in the morning on an empty stomach, at least 30 minutes beforefood. Folic Acid 1 Mg Tablet 1 Mg PO DAILY 11/03/18 Reported Docusate Sodium 100 Mg Tablet 100 Mg ORAL THREE TIMES A DAY 11/03/18 Reported Coreg (Carvedilol) 25 Mg Tablet 25 Mg ORAL EVERY 12 HOURS 11/03/18 Reported SOCIAL HISTORY: He is a recreational IV drug user, last use six weeks ago. Denies current tobacco or alcohol use. FAMILY HISTORY: Noncontributory. REVIEW OF SYSTEMS: Negative other than the history of present illness. PHYSICAL EXAMINATION: Last 24 Hour Vital Signs Date Time Temp Pulse Resp B/P (MAP) Pulse Ox O2 Delivery O2 Flow Rate FiO2 11/06/18 09:26 97.6 11/06/18 09:00 Room Air 11/06/18 08:47 83 130/74 11/06/18 08:26 97.6 83 19 130/74 (92) 93 11/06/18 05:46 137/88 11/06/18 04:00 97.6 76 19 137/88 (104) 93 11/06/18 00:00 97.5 77 19 133/73 (93) 96 11/05/18 21:26 99 152/97 11/05/18 21:25 152/97 11/05/18 21:00 Room Air 11/05/18 20:00 97.3 99 19 152/97 (115) 96 11/05/18 18:00 Room Air 11/05/18 17:53 97.7 91 16 149/85 (106) 98 11/05/18 17:27 97.0 84 17 157/84 100 Room Air 11/05/18 16:29 97.0 11/05/18 14:36 97.0 84 17 157/84 100 Room Air 11/05/18 14:36 84 17 Room Air 11/05/18 14:26 97.0 82 18 142/76 99 Room Air GENERAL: He is a frail cachectic male, appearing older than his stated age, in no acute distress. Awake, alert, and oriented x3. HEENT: Normocephalic and atraumatic. Oropharynx is clear with moist mucous membranes. NECK: Supple without lymphadenopathy or JVD. CHEST: Clear. Right chest wall PermCath is noted. HEART: Regular. ABDOMEN: Benign. EXTREMITIES: Left lateral greater than right lateral thigh wounds are noted. No fluctuance, but there is erythema and scabbing with some warmth. Otherwise, no cyanosis, clubbing, or edema. Laboratory Tests Test 11/05/18 15:11 11/06/18 06:00 11/06/18 08:15 White Blood Count 8.1 K/UL (4.8-10.8) 9.5 K/UL (4.8-10.8) Red Blood Count 3.80 M/UL (4.70-6.10) L 3.08 M/UL (4.70-6.10) L Hemoglobin 10.7 G/DL (14.2-18.0) L 8.8 G/DL (14.2-18.0) L Hematocrit 35.0 % (42.0-52.0) L 28.1 % (42.0-52.0) L Mean Corpuscular Volume 92 FL (80-99) 91 FL (80-99) Mean Corpuscular Hemoglobin 28.1 PG (27.0-31.0) 28.6 PG (27.0-31.0) Mean Corpuscular Hemoglobin Concent 30.5 G/DL (32.0-36.0) L 31.3 G/DL (32.0-36.0) L Red Cell Distribution Width 19.0 % (11.6-14.8) H 18.0 % (11.6-14.8) H Platelet Count 176 K/UL (150-450) 161 K/UL (150-450) Mean Platelet Volume 5.7 FL (6.5-10.1) L 6.2 FL (6.5-10.1) L Neutrophils (%) (Auto) 69.3 % (45.0-75.0) 66.6 % (45.0-75.0) Lymphocytes (%) (Auto) 19.0 % (20.0-45.0) L 19.5 % (20.0-45.0) L Monocytes (%) (Auto) 7.8 % (1.0-10.0) 8.4 % (1.0-10.0) Eosinophils (%) (Auto) 2.8 % (0.0-3.0) 4.0 % (0.0-3.0) H Basophils (%) (Auto) 1.1 % (0.0-2.0) 1.5 % (0.0-2.0) Sodium Level 136 MMOL/L (136-145) 136 MMOL/L (136-145) Potassium Level 4.7 MMOL/L (3.5-5.1) 4.7 MMOL/L (3.5-5.1) Chloride Level 100 MMOL/L (98-107) 102 MMOL/L (98-107) Carbon Dioxide Level 20 MMOL/L (21-32) L 20 MMOL/L (21-32) L Anion Gap 16 mmol/L (5-15) H 14 mmol/L (5-15) Blood Urea Nitrogen 81 mg/dL (7-18) H 87 mg/dL (7-18) H Creatinine 6.9 MG/DL (0.55-1.30) H 7.4 MG/DL (0.55-1.30) H Estimat Glomerular Filtration Rate 8.1 mL/min (>60) 7.5 mL/min (>60) Glucose Level 103 MG/DL (74-106) 114 MG/DL (74-106) H Calcium Level 8.3 MG/DL (8.5-10.1) L 7.8 MG/DL (8.5-10.1) L Total Bilirubin 0.5 MG/DL (0.2-1.0) 0.5 MG/DL (0.2-1.0) Aspartate Amino Transf (AST/SGOT) 28 U/L (15-37) 27 U/L (15-37) Alanine Aminotransferase (ALT/SGPT) 36 U/L (12-78) 37 U/L (12-78) Alkaline Phosphatase 164 U/L (46-116) H 160 U/L (46-116) H Total Creatine Kinase 49 U/L (26-308) Creatine Kinase MB 1.6 NG/ML (0.0-3.6) Creatine Kinase MB Relative Index 3.2 Troponin I 0.003 ng/mL (0.000-0.056) Pro-B-Type Natriuretic Peptide > 87254 pg/mL (0-125) H Total Protein 7.1 G/DL (6.4-8.2) 6.4 G/DL (6.4-8.2) Albumin 2.2 G/DL (3.4-5.0) L 2.0 G/DL (3.4-5.0) L Globulin 4.9 g/dL 4.4 g/dL Albumin/Globulin Ratio 0.4 (1.0-2.7) L 0.5 (1.0-2.7) L Urine Opiates Screen Negative (NEGATIVE) Urine Barbiturates Screen Negative (NEGATIVE) Phencyclidine (PCP) Screen Negative (NEGATIVE) Urine Amphetamines Screen Negative (NEGATIVE) Urine Benzodiazepines Screen Negative (NEGATIVE) Urine Cocaine Screen Negative (NEGATIVE) Urine Marijuana (THC) Screen Negative (NEGATIVE) ASSESSMENT: The patient is a 62-year-old homeless male with a history of IV drug use; hepatitis C; hepatopathy; end-stage renal disease, on dialysis via tunneled cath; and noncompliance with missed dialysis, presenting with weakness , failure to thrive, and need for placement, PROBLEM LIST: 1. End-stage renal disease, status post missed dialysis via PermCath. 2. Anemia, acute on chronic, with evidence of iron deficiency. 3. Hepatitis C. 4. Left thigh wound, imaging at [facility] reviewed. No evidence of abscess. 5. IV drug use. 6. Homelessness. 7. Need for placement 8. Hypothyroidism. 9. Chronic back pain, possible compression fracture TREATMENT PLAN: 1. Re-admit to hospital. 2. BP control 4. Observe off Abx 5. Pain control/supportive care 6. MRI LS 7. Pain management evaluation 8. Continue MVI/thiamine/Folate 9. Previously declined endoscopic evaluation, plan for OP Hep C erradication 10. Monitor wounds 11. Renal consultation 12. Continue Synthroid 13. DVT prophylaxis, heparin subcutaneous. 14. Diabetic renal diet. 15. The patient is a Full Code. 16. Social work evaluation Sameera Mann Ashkan L. MD Nov 06, 2018 11:40
--- NOTE | 2018-11-06 13:39 | Consultation ---
Consult Note Consult Note asked to eval for dialysis again discharged 11/04 readmitted 11/05 ! HPI 62-year-old male presents ED for evaluation. Complaining of weakness. States he missed dialysis today because he wasn't feeling well. States he fell in the bathroom today. Hit his head. Complaining of back pain and hip pain. Denies LOC. Pain is throbbing, 8 out of 10, nonradiating. Denies any other injuries. Denies chest pain or shortness of breath. Patient states he was discharged yesterday from [facility] to recuperative care. States that the recuperative care will not accept him back because he is unable to take care of himself. No other aggravating relieving factors. Denies any other associated symptoms No Known Allergies (Unverified , 10/04/18) Past Medical History: psych hx, renal disease, dialysis Hx Cardiac Problems: No - HEP C, FTT, Cellulitis, hypothyroidism Hx Cancer: No Hx Gastrointestinal Problems: Yes Hx Dialysis: Yes - M, W, F History Of Psychiatric Problem: Yes - anxiety depression Hx Neurological Problems: Yes - chronic back pain interviewed examined Assessment/Plan (1) Cardiomyopathy (2) ESRD on dialysis (3) Bacteremia (4) Homeless (5) Leukocytosis (6) Anemia of CKD (7) FTT (failure to thrive) in adult- malnutrition (8) Homeless continue meds HD as needed IVY med adjustment Renal diet placement David Meyers MD Nov 06, 2018 13:39
--- NOTE | 2018-11-06 14:42 | NUR ---
PT Note PT scott completed, treatment initiated. Patient c/o increased back pain during gait training. Patient can benefit from PT services to increase his muscle strength, balance, pain and activity tolerance to improve his safety in mobility and gait. Addendum: 11/06/18 at 1443 by BRANDIN DOTY PT Amended: Links added.
--- NOTE | 2018-11-06 15:50 | Diagnostic Imaging Report ---
Indication: Dyspnea Comparison: 10/05/2018 A single view chest radiograph was obtained. Findings: Permacath again noted. Cardiomegaly is stable. Mild increased interstitial edema noted compared to last study. IMPRESSION: Mild interstitial edema suspected
--- NOTE | 2018-11-06 15:50 | Diagnostic Imaging Report ---
Indication: Headache. Head trauma Technique: Contiguous 5 mm thick transaxial imaging of the head obtained in a Siemens Sensation [address] scanner. Soft tissue and bone windows generated. Automatic Exposure Control was utilized. Total Dose length Product (DLP): 1368.[address] Dose Index Volume (CTDIvol): 70.38 mGy Comparison: none Findings: There is mild prominence of the ventricles, basal cisterns, and cerebral sulci consistent with atrophy. Mild, nonspecific, white matter hypoattenuation is noted throughout the brain consistent with chronic small vessel disease. There is no midline shift, edema, acute hemorrhage, mass effect, or abnormal extra-axial fluid collections. Bones and extra osseous soft tissues are unremarkable. Impression: No acute intracranial bleed, mass effect or edema. Mild atrophy of the brain. Nonspecific white matter hypoattenuation probably due to chronic small vessel disease. The CT scanner at [facility] is accredited by the [employer] and the scans are performed using dose optimization techniques as appropriate to a performed exam including Automatic Exposure control.
--- NOTE | 2018-11-06 15:50 | Diagnostic Imaging Report ---
Indication: Pelvic pain and trauma. Technique: Continuous helical transaxial imaging of the pelvis was obtained from the iliac crest to the pubic symphysis. Coronal 2-D reformats were also obtained. Study obtained in a Siemens sensation [address] Intravenous non-ionic contrast was administered. Total Dose length Product (DLP): 300.[address] Dose Index Volume (CTDIvol): 9.05 mGy Comparison: None Findings: No acute fracture is identified. The bones are osteopenic. There is generalized subcutaneous edema present. Extensive small vessel calcifications are present. There is a small amount of ascites present within the pelvis. Aortoiliac calcifications are moderate in degree. The bones are osteopenic. Degenerative osteoarthrosis noted with narrowing of both hip joints and sacroiliac joints. IMPRESSION: No acute bony injury identified on this study. Generalized subcutaneous edema, nonspecific. Vascular disease. Mild ascites The CT scanner at [facility] is accredited by the [employer] and the scans are performed using dose optimization techniques as appropriate to a performed exam including Automatic Exposure control.
[2018-11-06] MEDS: Lomotil 2.5mg tab ORAL PRN (16:50)
--- NOTE | 2018-11-06 19:01 | NUR ---
HAND-OFF: Report given to VIRIDIANA WELLS.
--- NOTE | 2018-11-06 19:28 | NUR ---
NURSE NOTES: Received patient comfortably sleeping,No SOB noted.
[2018-11-06] MEDS: Heparin 5000 units/ml inj SUBQ SCH (21:18)
[2018-11-07] MEDS: HYDROcodone/Acetamin 10/325 tab ORAL PRN ×3 (01:33→09:41)
[2018-11-07 04:00] VITALS: BP 125/76
[2018-11-07] MEDS: HydrALAZINE 25mg tab ORAL SCH ×3 (05:33→21:03)
[2018-11-07] MEDS: Levothyroxine 25mcg tab ORAL SCH (05:33)
[2018-11-07 05:47] LABS: EOSINOPHILS % (AUTO) 3.5 % (0.0-3.0); HEMATOCRIT 25.7 % (42.0-52.0); LYMPHOCYTES % (AUTO) 28.9 % (20.0-45.0); MEAN CORPUSCULAR VOLUME 91 FL (80-99); MONOCYTES % (AUTO) 10.8 % (1.0-10.0); NEUTROPHILS % (AUTO) 54.8 % (45.0-75.0); PLATELET COUNT 142 K/UL (150-450); RED BLOOD COUNT 2.83 M/UL (4.70-6.10); RED CELL DISTRIBUTION WIDTH 18.2 % (11.6-14.8); WHITE BLOOD COUNT 7.9 K/UL (4.8-10.8)
[2018-11-07 06:17] LABS: ALANINE AMINOTRANSFERASE 45 U/L (12-78); ALBUMIN 1.8 G/DL (3.4-5.0); ALBUMIN/GLOBULIN RATIO 0.5 (1.0-2.7); ALKALINE PHOSPHATASE 180 U/L (46-116); ANION GAP 12 mmol/L (5-15); ASPARTATE AMINO TRANSFERASE 46 U/L (15-37); BILIRUBIN,TOTAL 0.3 MG/DL (0.2-1.0); BLOOD UREA NITROGEN 58 mg/dL (7-18); CALCIUM 7.4 MG/DL (8.5-10.1); CARBON DIOXIDE 24 MMOL/L (21-32); CHLORIDE 102 MMOL/L (98-107); CHOLESTEROL 90 MG/DL (< 200); CREATININE 5.3 MG/DL (0.55-1.30); FERRITIN 852 NG/ML (8-388); HDL CHOLESTEROL 49 MG/DL (40-60); PHOSPHORUS 5.5 MG/DL (2.5-4.9); POTASSIUM 4.7 MMOL/L (3.5-5.1); SODIUM 138 MMOL/L (136-145); TRIGLYCERIDES 23 MG/DL (30-150)
[2018-11-07 07:12] LABS: % IRON SATURATION 23 % (15-50); IRON 32 ug/dL (50-175); TOTAL IRON BINDING CAPACITY 142 ug/dL (250-450)
--- NOTE | 2018-11-07 07:24 | NUR ---
HAND-OFF: Report given to PRISCILLA Martel.
--- NOTE | 2018-11-07 07:46 | NUR ---
NURSE NOTES: Patient alert x4, in room air, no sign of distress and shortness of breath. IV on right Per-chat. Patient had dialysis 11/06/18 removed 2 liter. IV Left hand, saline lock, and flushes well. Skin-bilateral stage II partial thickness loss and dressing changed yesterday, its dry and intact now. Side rails up x2, bed at lowest position, breaks engaged. Call light within reach, will keep monitoring.
[2018-11-07 08:00] VITALS: BP 143/90
[2018-11-07] MEDS: Docusate 100mg cap ORAL SCH ×3 (09:00→17:10)
[2018-11-07] MEDS: Heparin 5000 units/ml inj SUBQ SCH ×2 (09:00→21:00)
[2018-11-07] MEDS: Carvedilol 25mg Tab ORAL SCH ×2 (09:32→21:03)
[2018-11-07] MEDS: Thiamine 100mg tab ORAL SCH (09:33)
[2018-11-07] MEDS: Vitamin B Complex Tab ORAL SCH (09:33)
[2018-11-07] MEDS: OLANZapine 10mg tab ORAL SCH (09:40)
--- NOTE | 2018-11-07 10:44 | NUR ---
NURSE NOTES: Patient's Hemoglobin is 8, Dr Lin is aware, no order received. Will follow up.
--- NOTE | 2018-11-07 11:02 | Pulmonology Progress Note ---
Assessment/Plan Problems: (1) Episode of generalized weakness (2) FTT (failure to thrive) in adult (3) ESRD on dialysis (4) Weakness (5) Schizophrenia (6) Cardiomyopathy (7) CHF (congestive heart failure) (8) Dialysis patient (9) Hepatitis C (10) Anemia Assessment/Plan ASSESSMENT: The patient is a 62-year-old homeless male with a history of IV drug use; hepatitis C; hepatopathy; end-stage renal disease, on dialysis via tunneled cath; and noncompliance with missed dialysis, presenting with weakness , failure to thrive, and need for placement, PROBLEM LIST: 1. End-stage renal disease, status post missed dialysis via PermCath. 2. Anemia, acute on chronic, with evidence of iron deficiency. 3. Hepatitis C. 4. Left thigh wound, imaging at [facility] reviewed. No evidence of abscess. 5. IV drug use. 6. Homelessness. 7. Need for placement 8. Hypothyroidism. 9. Chronic back pain, possible compression fracture TREATMENT PLAN: 1. BP control 2. Observe off Abx 3. Pain control/supportive care 4. F/U MRI LS 5. Pain management evaluation 6. Continue MVI/thiamine/Folate 7. Previously declined endoscopic evaluation, plan for OP Hep C erradication 8. Monitor HH, start EPO - seen by GI and heme last admission 9. Renal consultation 10. HD per renal 11. Continue Synthroid 12. DVT prophylaxis, heparin subcutaneous. 13. Diabetic renal diet. 14. The patient is a Full Code. 15. Social work evaluation 16. Monitor wounds Subjective Allergies: Coded Allergies: No Known Allergies (Unverified , 10/04/18) Subjective NITESH, AFVSS, Hb 8 S/P HD Unchanged pain MRI done, report pending No F/C/CP/SOB/N/V/D/C Worked with PT Objective Last 24 Hour Vital Signs Date Time Temp Pulse Resp B/P (MAP) Pulse Ox O2 Delivery O2 Flow Rate FiO2 11/07/18 10:11 97.1 11/07/18 09:32 89 143/86 11/07/18 09:00 Room Air 11/07/18 08:00 97.1 93 19 143/90 (107) 97 11/07/18 05:33 125/76 11/07/18 04:00 98.0 75 17 125/76 (92) 96 11/06/18 23:57 97.8 79 17 119/68 (85) 96 11/06/18 21:17 126/73 11/06/18 21:17 76 126/73 11/06/18 20:29 Room Air 11/06/18 19:54 97.9 76 16 126/73 (90) 96 11/06/18 15:53 98.1 70 19 134/71 (92) 93 11/06/18 13:38 113/57 11/06/18 13:12 Room Air 11/06/18 13:06 Room Air 11/06/18 12:00 97.6 70 19 138/81 (100) 93 Intake and Output 11/06/18 11/07/18 19:00 07:00 Intake Total 480 ml 480 ml Output Total 2000 ml Balance -1520 ml 480 ml Intake Oral 480 ml 480 ml Hemodialysis UF 2000 ml # Voids 1 # Bowel Movements 2 General Appearance: no acute distress, cachetic HEENT: normocephalic, atraumatic, anicteric, mucous membranes moist Respiratory/Chest: chest wall non-tender, lungs clear, normal breath sounds, no respiratory distress, no accessory muscle use Cardiovascular: normal peripheral pulses, normal rate, regular rhythm Abdomen: normal bowel sounds, soft, non tender, no organomegaly, non distended , no mass Extremities: no cyanosis, no clubbing, no edema Microbiology Date/Time Source Procedure Growth Status 11/06/18 09:05 Stool Clostridium difficile Toxin Assay - Final Complete Laboratory Tests 11/07/18 04:55: White Blood Count 7.9, Red Blood Count 2.83L, Hemoglobin 8.0L, Hematocrit 25.7L , Mean Corpuscular Volume 91, Mean Corpuscular Hemoglobin 28.1, Mean Corpuscular Hemoglobin Concent 31.0L, Red Cell Distribution Width 18.2H, Platelet Count 142L, Mean Platelet Volume 6.3L, Neutrophils (%) (Auto) 54.8, Lymphocytes (%) (Auto) 28.9, Monocytes (%) (Auto) 10.8H, Eosinophils (%) (Auto) 3.5H, Basophils (%) (Auto) 2.0, Sodium Level 138, Potassium Level 4.7, Chloride Level 102, Carbon Dioxide Level 24, Anion Gap 12, Blood Urea Nitrogen 58H, Creatinine 5.3H, Estimat Glomerular Filtration Rate 11.0, Glucose Level 63L, Uric Acid 4.2, Calcium Level 7.4L, Phosphorus Level 5.5H, Iron Level 32L, Total Iron Binding Capacity 142L, Percent Iron Saturation 23, Unsaturated Iron Binding 110L, Ferritin 852H, Total Bilirubin 0.3, Aspartate Amino Transf (AST/ SGOT) 46H, Alanine Aminotransferase (ALT/SGPT) 45, Alkaline Phosphatase 180H, Pro-B-Type Natriuretic Peptide > 32890L, Total Protein 5.7L, Albumin 1.8L, Globulin 3.9, Albumin/Globulin Ratio 0.5L, Triglycerides Level 23L, Cholesterol Level 90, LDL Cholesterol 37, HDL Cholesterol 49, Cholesterol/HDL Ratio 1.8L, Vitamin B12 Level 564, Folate 37.1, Thyroid Stimulating Hormone (TSH) 7.043H Current Medications Medications (Trade) Dose Ordered Sig/Mary Kay Route PRN Reason Start Time Stop Time Status Last Admin Dose Admin Acetaminophen (Tylenol) 650 mg Q6H PRN ORAL Mild Pain/Temp > 100.5 11/05/18 20:00 12/05/18 19:59 Acetaminophen/ Hydrocodone Bitart ([place] 10/325) 1 tab Q4H PRN ORAL Severe Pain (Pain Scale 7-10) 11/05/18 20:00 11/12/18 19:59 11/07/18 09:41 Acetaminophen/ Hydrocodone Bitart ([place] 5/325) 1 tab Q4H PRN ORAL Moderate Pain (Pain Scale 4-6) 11/05/18 20:00 11/12/18 19:59 Carvedilol (Coreg) 25 mg EVERY 12 HOURS ORAL 11/05/18 21:00 12/05/18 20:59 11/07/18 09:32 Diphenoxylate HCl/ Atropine (Lomotil) 2.5 mg Q4H PRN ORAL Diarrhea 11/06/18 12:00 12/06/18 11:59 11/06/18 16:50 Docusate Sodium (Colace) 100 mg THREE TIMES A DAY ORAL 11/06/18 18:00 12/06/18 08:59 Epoetin David (Procrit (for ESRD on dialysis)) 5,000 units THU-THU-THU SUBQ 11/08/18 21:00 12/08/18 20:59 UNV Folic Acid (Folate) 1 mg DAILY ORAL 11/06/18 09:00 12/06/18 08:59 11/07/18 09:32 Heparin Sodium (Porcine) (Heparin 5000 units/ml) 5,000 units EVERY 12 HOURS SUBQ 11/06/18 21:00 12/06/18 20:59 11/06/18 21:18 Hydralazine HCl (Apresoline) 25 mg Q8HR ORAL 11/05/18 22:00 12/05/18 21:59 11/07/18 05:33 Levothyroxine Sodium (Synthroid) 25 mcg DAILY@0630 ORAL 11/06/18 06:30 12/06/18 06:29 11/07/18 05:33 Mirtazapine (Remeron) 15 mg BEDTIME ORAL 11/05/18 21:00 12/05/18 20:59 11/06/18 21:17 Multivitamins (Multivitamins) 1 tab DAILY ORAL 11/06/18 09:00 12/06/18 08:59 11/07/18 09:31 Olanzapine (ZyPREXA) 30 mg DAILY ORAL 11/05/18 20:00 12/05/18 19:59 11/07/18 09:40 Pantoprazole (Protonix) 40 mg DAILY ORAL 11/06/18 09:00 12/06/18 08:59 11/07/18 09:32 Sevelamer Carbonate (Renvela) 2,400 mg THREE TIMES A DAY ORAL 11/06/18 18:00 12/06/18 17:59 11/07/18 09:31 Thiamine HCl (Vitamin B1) 100 mg DAILY ORAL 11/06/18 09:00 12/06/18 08:59 11/07/18 09:33 Vitamin B Complex (Vitamin B Complex) 1 tab DAILY ORAL 11/06/18 09:00 12/06/18 08:59 11/07/18 09:33 Michael Coleman MD Nov 07, 2018 11:02
--- NOTE | 2018-11-07 11:09 | Nephrology Progress Note ---
Assessment/Plan Problem List: (1) ESRD on dialysis (2) CHF (congestive heart failure) (3) Cardiomyopathy Assessment (1) Cardiomyopathy (2) ESRD on dialysis (3) Bacteremia (4) Homeless (5) Leukocytosis (6) Anemia of CKD (7) FTT (failure to thrive) in adult- malnutrition (8) Homeless Plan Continue meds HD as needed BP med adjustment Renal diet placement Subjective ROS Limited/Unobtainable: No Constitutional: Reports: malaise Objective Objective Last 24 Hour Vital Signs Date Time Temp Pulse Resp B/P (MAP) Pulse Ox O2 Delivery O2 Flow Rate FiO2 11/07/18 10:11 97.1 11/07/18 09:32 89 143/86 11/07/18 09:00 Room Air 11/07/18 08:00 97.1 93 19 143/90 (107) 97 11/07/18 05:33 125/76 11/07/18 04:00 98.0 75 17 125/76 (92) 96 11/06/18 23:57 97.8 79 17 119/68 (85) 96 11/06/18 21:17 126/73 11/06/18 21:17 76 126/73 11/06/18 20:29 Room Air 11/06/18 19:54 97.9 76 16 126/73 (90) 96 11/06/18 15:53 98.1 70 19 134/71 (92) 93 11/06/18 13:38 113/57 11/06/18 13:12 Room Air 11/06/18 13:06 Room Air 11/06/18 12:00 97.6 70 19 138/81 (100) 93 Intake and Output 11/06/18 11/07/18 19:00 07:00 Intake Total 480 ml 480 ml Output Total 2000 ml Balance -1520 ml 480 ml Intake Oral 480 ml 480 ml Hemodialysis UF 2000 ml # Voids 1 # Bowel Movements 2 Laboratory Tests 11/07/18 04:55: White Blood Count 7.9, Red Blood Count 2.83L, Hemoglobin 8.0L, Hematocrit 25.7L , Mean Corpuscular Volume 91, Mean Corpuscular Hemoglobin 28.1, Mean Corpuscular Hemoglobin Concent 31.0L, Red Cell Distribution Width 18.2H, Platelet Count 142L, Mean Platelet Volume 6.3L, Neutrophils (%) (Auto) 54.8, Lymphocytes (%) (Auto) 28.9, Monocytes (%) (Auto) 10.8H, Eosinophils (%) (Auto) 3.5H, Basophils (%) (Auto) 2.0, Sodium Level 138, Potassium Level 4.7, Chloride Level 102, Carbon Dioxide Level 24, Anion Gap 12, Blood Urea Nitrogen 58H, Creatinine 5.3H, Estimat Glomerular Filtration Rate 11.0, Glucose Level 63L, Uric Acid 4.2, Calcium Level 7.4L, Phosphorus Level 5.5H, Iron Level 32L, Total Iron Binding Capacity 142L, Percent Iron Saturation 23, Unsaturated Iron Binding 110L, Ferritin 852H, Total Bilirubin 0.3, Aspartate Amino Transf (AST/ SGOT) 46H, Alanine Aminotransferase (ALT/SGPT) 45, Alkaline Phosphatase 180H, Pro-B-Type Natriuretic Peptide > 43206I, Total Protein 5.7L, Albumin 1.8L, Globulin 3.9, Albumin/Globulin Ratio 0.5L, Triglycerides Level 23L, Cholesterol Level 90, LDL Cholesterol 37, HDL Cholesterol 49, Cholesterol/HDL Ratio 1.8L, Vitamin B12 Level 564, Folate 37.1, Thyroid Stimulating Hormone (TSH) 7.043H Height (Feet): 5 Height (Inches): 8.00 Weight (Pounds): 124 General Appearance: no apparent distress Cardiovascular: normal rate Respiratory/Chest: lungs clear Abdomen: soft Objective no change David Meyers MD Nov 07, 2018 11:09
--- NOTE | 2018-11-07 11:22 | NUR ---
NURSE NOTES: Patient schedules for Dialysis with [facility] Nephrology. I spoke with
--- NOTE | 2018-11-07 11:25 | Consultation ---
History of Present Illness General Date patient seen: Nov 07, 2018 Chief Complaint: Present Illness Allergies: Coded Allergies: No Known Allergies (Unverified , 10/04/18) Medication History Scheduled Calcium Acetate (Calcium Acetate), 1,334 MG PO THREE TIMES A DAY, (Reported) Carvedilol (Coreg), 25 MG ORAL EVERY 12 HOURS, (Reported) Docusate Sodium (Docusate Sodium), 100 MG ORAL THREE TIMES A DAY, (Reported) Fluoxetine Hcl* (Fluoxetine Hcl*), 20 MG ORAL DAILY, (Reported) Folic Acid (Folic Acid), 1 MG PO DAILY, (Reported) Hydralazine HCl (Hydralazine HCl), 25 MG PO Q8HR, (Reported) Levothyroxine Sodium (Synthroid), 25 MCG ORAL DAILY, (Reported) Mirtazapine (Remeron), 15 MG ORAL BEDTIME, (Reported) Multivitamins* (Multivitamins*), 1 TAB ORAL DAILY, (Reported) Olanzapine* (Zyprexa*), 30 MG ORAL DAILY, (Reported) Pantoprazole* (Pantoprazole*), 40 MG ORAL DAILY, (Reported) Thiamine Hcl* (Vitamin B-1*), 100 MG ORAL DAILY, (Reported) Vitamin B Complex (Vitamin B Complex), 1 CAP ORAL DAILY, (Reported) Scheduled PRN Acetaminophen* (Acetaminophen 325MG Tablet*), 650 MG ORAL Q6H PRN for Mild Pain/ Temp > 100.5, (Reported) Patient History Healthcare decision maker Resuscitation status Full Code Advanced Directive on File No Physical Exam Last 24 Hour Vital Signs Date Time Temp Pulse Resp B/P (MAP) Pulse Ox O2 Delivery O2 Flow Rate FiO2 11/07/18 10:11 97.1 11/07/18 09:32 89 143/86 11/07/18 09:00 Room Air 11/07/18 08:00 97.1 93 19 143/90 (107) 97 11/07/18 05:33 125/76 11/07/18 04:00 98.0 75 17 125/76 (92) 96 11/06/18 23:57 97.8 79 17 119/68 (85) 96 11/06/18 21:17 126/73 11/06/18 21:17 76 126/73 11/06/18 20:29 Room Air 11/06/18 19:54 97.9 76 16 126/73 (90) 96 11/06/18 15:53 98.1 70 19 134/71 (92) 93 11/06/18 13:38 113/57 11/06/18 13:12 Room Air 11/06/18 13:06 Room Air 11/06/18 12:00 97.6 70 19 138/81 (100) 93 Intake and Output 11/06/18 11/07/18 19:00 07:00 Intake Total 480 ml 480 ml Output Total 2000 ml Balance -1520 ml 480 ml Intake Oral 480 ml 480 ml Hemodialysis UF 2000 ml # Voids 1 # Bowel Movements 2 Laboratory Tests Test 11/07/18 04:55 White Blood Count 7.9 K/UL (4.8-10.8) Red Blood Count 2.83 M/UL (4.70-6.10) L Hemoglobin 8.0 G/DL (14.2-18.0) L Hematocrit 25.7 % (42.0-52.0) L Mean Corpuscular Volume 91 FL (80-99) Mean Corpuscular Hemoglobin 28.1 PG (27.0-31.0) Mean Corpuscular Hemoglobin Concent 31.0 G/DL (32.0-36.0) L Red Cell Distribution Width 18.2 % (11.6-14.8) H Platelet Count 142 K/UL (150-450) L Mean Platelet Volume 6.3 FL (6.5-10.1) L Neutrophils (%) (Auto) 54.8 % (45.0-75.0) Lymphocytes (%) (Auto) 28.9 % (20.0-45.0) Monocytes (%) (Auto) 10.8 % (1.0-10.0) H Eosinophils (%) (Auto) 3.5 % (0.0-3.0) H Basophils (%) (Auto) 2.0 % (0.0-2.0) Sodium Level 138 MMOL/L (136-145) Potassium Level 4.7 MMOL/L (3.5-5.1) Chloride Level 102 MMOL/L (98-107) Carbon Dioxide Level 24 MMOL/L (21-32) Anion Gap 12 mmol/L (5-15) Blood Urea Nitrogen 58 mg/dL (7-18) H Creatinine 5.3 MG/DL (0.55-1.30) H Estimat Glomerular Filtration Rate 11.0 mL/min (>60) Glucose Level 63 MG/DL (74-106) L Uric Acid 4.2 MG/DL (2.6-7.2) Calcium Level 7.4 MG/DL (8.5-10.1) L Phosphorus Level 5.5 MG/DL (2.5-4.9) H Iron Level 32 ug/dL (50-175) L Total Iron Binding Capacity 142 ug/dL (250-450) L Percent Iron Saturation 23 % (15-50) Unsaturated Iron Binding 110 ug/dL (112-346) L Ferritin 852 NG/ML (8-388) H Total Bilirubin 0.3 MG/DL (0.2-1.0) Aspartate Amino Transf (AST/SGOT) 46 U/L (15-37) H Alanine Aminotransferase (ALT/SGPT) 45 U/L (12-78) Alkaline Phosphatase 180 U/L (46-116) H Pro-B-Type Natriuretic Peptide > 42400 pg/mL (0-125) H Total Protein 5.7 G/DL (6.4-8.2) L Albumin 1.8 G/DL (3.4-5.0) L Globulin 3.9 g/dL Albumin/Globulin Ratio 0.5 (1.0-2.7) L Triglycerides Level 23 MG/DL (30-150) L Cholesterol Level 90 MG/DL (< 200) LDL Cholesterol 37 mg/dL (<100) HDL Cholesterol 49 MG/DL (40-60) Cholesterol/HDL Ratio 1.8 (3.3-4.4) L Vitamin B12 Level 564 PG/ML (193-986) Folate 37.1 NG/ML (8.6-58.9) Thyroid Stimulating Hormone (TSH) 7.043 uiU/mL (0.358-3.740) Height (Feet): 5 Height (Inches): 8.00 Weight (Pounds): 124 Medications Current Medications Medications (Trade) Dose Ordered Sig/Mary Kay Route PRN Reason Start Time Stop Time Status Last Admin Dose Admin Acetaminophen (Tylenol) 650 mg Q6H PRN ORAL Mild Pain/Temp > 100.5 11/05/18 20:00 12/05/18 19:59 Acetaminophen/ Hydrocodone Bitart ([place] 5/325) 1 tab Q4H PRN ORAL pain 11/07/18 12:00 11/12/18 19:59 Carvedilol (Coreg) 25 mg EVERY 12 HOURS ORAL 11/05/18 21:00 12/05/18 20:59 11/07/18 09:32 Diphenoxylate HCl/ Atropine (Lomotil) 2.5 mg Q4H PRN ORAL Diarrhea 11/06/18 12:00 12/06/18 11:59 11/06/18 16:50 Docusate Sodium (Colace) 100 mg THREE TIMES A DAY ORAL 11/06/18 18:00 12/06/18 08:59 Epoetin David (Procrit (for ESRD on dialysis)) 10,000 units THU-THU-THU SUBQ 11/08/18 21:00 12/08/18 20:59 Folic Acid (Folate) 1 mg DAILY ORAL 11/06/18 09:00 12/06/18 08:59 11/07/18 09:32 Heparin Sodium (Porcine) (Heparin 5000 units/ml) 5,000 units EVERY 12 HOURS SUBQ 11/06/18 21:00 12/06/18 20:59 11/06/18 21:18 Hydralazine HCl (Apresoline) 25 mg Q8HR ORAL 11/05/18 22:00 12/05/18 21:59 11/07/18 05:33 Levothyroxine Sodium (Synthroid) 25 mcg DAILY@0630 ORAL 11/06/18 06:30 12/06/18 06:29 11/07/18 05:33 Mirtazapine (Remeron) 15 mg BEDTIME ORAL 11/05/18 21:00 12/05/18 20:59 11/06/18 21:17 Multivitamins (Multivitamins) 1 tab DAILY ORAL 11/06/18 09:00 12/06/18 08:59 11/07/18 09:31 Olanzapine (ZyPREXA) 30 mg DAILY ORAL 11/05/18 20:00 12/05/18 19:59 11/07/18 09:40 Pantoprazole (Protonix) 40 mg DAILY ORAL 11/06/18 09:00 12/06/18 08:59 11/07/18 09:32 Sevelamer Carbonate (Renvela) 2,400 mg THREE TIMES A DAY ORAL 11/06/18 18:00 12/06/18 17:59 11/07/18 09:31 Thiamine HCl (Vitamin B1) 100 mg DAILY ORAL 11/06/18 09:00 12/06/18 08:59 11/07/18 09:33 Vitamin B Complex (Vitamin B Complex) 1 tab DAILY ORAL 11/06/18 09:00 12/06/18 08:59 11/07/18 09:33 Assessment/Plan Assessment/Plan (1) Lumbar DDD (2) Lumbar Spondylosis (3) Lumbar Radiculopathy (4) B/L Hip OA and pain (5) Left thigh wound (6) ESRD on dialysis seen dictated Carlos Laird Nov 07, 2018 11:25
[2018-11-07 12:00] VITALS: BP 137/73
[2018-11-07] MEDS ORDERED: Norco 5mg/325mg tab ORAL PRN (12:00)
[2018-11-07] MEDS: oxyCODONE HCL/Acetaminophen 5/325mg ORAL PRN ×3 (13:03→21:03)
--- NOTE | 2018-11-07 13:30 | NUR ---
NURSE NOTES: Patient left the floor accompanied by nursing clerk Catracho to the vending machine, Charge Nurse Nasra is aware.
--- NOTE | 2018-11-07 14:08 | NUR ---
CASE MANAGEMENT: CM review and clinical information (face sheet/ ER MD Note/ H&P/ concurrent progress including lab and imaging reports) initially faxed to [facility] @ [phone] and [facility] Dept @ [phone]. DCP order was also faxed to [facility]
--- NOTE | 2018-11-07 14:45 | Consultation ---
DATE OF CONSULTATION: 11/07/2018 PAIN MANAGEMENT CONSULTATION CONSULTING PHYSICIAN: Adrian Dalton M.D. REFERRING PHYSICIAN: Michael Coleman M.D. PHYSICIAN SOLAR [employer] SYSTEM INSTALLER: Warren Kohler CHIEF COMPLAINT: Low back pain and bilateral lower extremity pain. HISTORY OF PRESENT ILLNESS: The patient is a 62-year-old male, who is being seen on the Med/Surg floor of [facility] for initial pain management consultation. The patient was admitted under the care of Dr. Coleman, due to weakness, status post fall, and end-stage renal disease, having history of end-stage renal disease and having issues with dialysis and also having left hip open wound due to infection and abscess, which he had I and D for. However, has continued pain and also having lower back pain, which is chronic. Reporting that he had a surgery in the past on his lower back and recently had a fall, which caused him to have severe increased pain. As of now the patient reports his pain is 6/10, describing the pain as a sharp pain in his lower back radiating down bilateral lower extremities, with sharp pain in his left hip to the wound. So, he was started on [place] 10/325 one tablet every four hours as needed for severe pain with minimal pain relief. We were consulted to help the patient have adequate control while here in the hospital. PAST MEDICAL HISTORY: End-stage renal disease, history of hepatitis C, anemia, coronary artery disease, and CHF. PAST SURGICAL HISTORY: Lumbar surgery. SOCIAL HISTORY: He is a IV drug abuser, last used six weeks ago. No tobacco use or alcohol abuse. ALLERGIES: Penicillin. MEDICATIONS: Calcium acetate, Coreg, fluoxetine, folic acid, hydralazine, Synthroid, Remeron, Zyprexa, pantoprazole, and Tylenol. REVIEW OF SYSTEMS: Denies rash, fever, chills, sweating, dizziness, drowsiness, or change in weight. No shortness of breath or chest pain. No nausea, vomiting, or blood in the stool or urine. No bowel or bladder incontinence. He is complaining of low back pain and bilateral lower extremity pain. PHYSICAL EXAMINATION: GENERAL: Alert, awake, and oriented. VITAL SIGNS: Blood pressure 143/90, heart rate 93, oxygen saturation 98%, respiratory rate 19, and temperature 97.1 degrees Fahrenheit. HEENT: PERRLA. NECK: Range of motion is decreased due to the patient's condition with tenderness to paracervical muscles. No adenopathy. LUNGS: Decreased breath sounds bilaterally. HEART: S1 and S2 regular. ABDOMEN: Soft, nontender. BACK: Range of motion is decreased in flexion and extension with tenderness to paraspinal muscles, trapezius, and rhomboid muscles. EXTREMITIES: Upper and lower extremity range of motion is decreased due to the patient's condition. No cyanosis. No clubbing. Sensory is reduced. Bandages applied to the left hip with tenderness to palpation. ASSESSMENT AND PLAN: This is a 62-year-old male with lumbar degenerative disc disease, lumbar spondylosis, lumbar radiculopathy, bilateral hip osteoarthritis and hip pain, left thigh wound, end-stage renal disease, on hemodialysis with IV drug abuse. At this time, the patient will be discontinued off [place] and will be started on Percocet 5/325 one tablet every four hours as needed for severe pain and baclofen 10 mg tablet every eight hours as needed for muscle spasms. MRI of lumbar spine results are pending. The patient was discussed with Dr. Dalton and he concurred. We will follow up the patient. Thank you very much for the courtesy of this consultation. Adrian Dalton M.D. FRANCISCO Kohler DR: MAY JOB#: [id number] CC: RYAN
--- NOTE | 2018-11-07 15:17 | NUR ---
CASE MANAGEMENT:REVIEW 11/07/18 SI: ESRD ON HD. WEAKNESS.FTT. FALL 98.2 81 18 137/73 97% on ra H/H-8.0/25.7 BUN+58 CR+5.3 IS: PROCRIT SQ MWF PERCOCET PO Q4HRS PRN HEPARIN SQ Q12 FOLATE PO QD PROTONIX PO QD SYNTHROID PO QD HYDRALAZINE PO Q8HRS COREG PO Q12 REMERON PO QHS : MED/SURG STATUS DCP: HOMELESS PLAN: SEEKING SNF PLACEMENT...ONLY ABLE TO AMBULATE 30FT
--- NOTE | 2018-11-07 15:24 | NUR ---
DISCHARGE PLANNING SPOKE WITH KOBI AT [facility] SHE HAS BEEN IN TOUCH WITH [employer] TRAFFIC COURT REFEREE, BETH, REGARDING THIS PATIENT SHE IS JUST WAITING FOR AUTHORIZATION FROM [facility] AND THEN SHE WILL ASSIGN A BED FOLLOW UP ON THURSDAY [id number] [place] [address] [address] [facility] [place] [address] SECURE TRANSPORTATION [phone] CONF # [id number] ()
--- NOTE | 2018-11-07 15:57 | NUR ---
NURSE NOTES: Patient scheduled for dialysis for 11/09/18. Varinder, the dialysis nurse from [facility], confirmed the scheduled date for dialysis.
[2018-11-07 16:00] VITALS: BP 126/75
--- NOTE | 2018-11-07 19:56 | NUR ---
NURSE NOTES: Received patient awake,alert,verbal,resting in bed without complaints.
[2018-11-07 20:00] VITALS: BP 138/79
[2018-11-07 23:51] VITALS: BP 120/77
[2018-11-08] MEDS: oxyCODONE HCL/Acetaminophen 5/325mg ORAL PRN ×4 (02:21→18:21)
[2018-11-08 04:00] VITALS: BP 122/71
[2018-11-08] MEDS: Levothyroxine 25mcg tab ORAL SCH (06:21)
[2018-11-08] MEDS: HydrALAZINE 25mg tab ORAL SCH ×3 (06:22→21:12)
--- NOTE | 2018-11-08 07:30 | NUR ---
HAND-OFF: Report given to PRISCILLA Moctezuma.
--- NOTE | 2018-11-08 08:09 | General Progress Note ---
Assessment/Plan Assessment/Plan #. Anemia of kidney disease/esrd -- anemia panel reviewed, has end-stage renal disease, status post missed dialysis via PermCath. --> transfuse on prn basis, if hgb <7 --> no evidence for hemolysis noted --> do not recommend iron at this time --> cont po folic acid and thiamine daily --> HD on permacath R arm --> getting epogen since hd and esrd, also vit b/folic acid --> hemoglobin electrophoresis is normal, no sickle cell trait noted --> no indication for iv iron --> hgb 7.7-->7.6-->7.8-->8.2-->8.6-->9.3-->8.2 #. Thrombocytopenia due to underlying Hepatitis C. has been chronic --> Trend 200s-->134k-->153k --> afp 2.1, and trend plts as needed --> peripheral smear reviewed --> on abx as per ID #. Leukocytosis likely due to infection. --> Improved/Resolved --> completed IV abx #. Left thigh wound, imaging at [facility] reviewed. No evidence of abscess. --> completed abx as per id --> skin protectant per surg #. IV drug use. #. Homelessness. #. Systemic inflammatory response syndrome. #. Hypothyroidism. #. Hep C -- outpatient eradication #. ESRD on hd 3x a week as per renal #. DVT ppx with heparin sq GREATLY APPRECIATE CONSULTATION. Date and time note entered does not reflect time of patient encounter. Subjective Constitutional: Denies: no symptoms, chills, diaphoresis, fever, malaise, weakness, other HEENT: Denies: no symptoms, eye pain, blurred vision, tearing, double vision, ear pain, ear discharge, nose pain, nose congestion, throat pain, throat swelling, mouth pain, mouth swelling, other Cardiovascular: Denies: no symptoms, chest pain, edema, irregular heart rate, lightheadedness, palpitations, syncope, other Respiratory: Denies: no symptoms, cough, orthopnea, shortness of breath, SOB with excertion, SOB at rest, sputum, stridor, wheezing, other Gastrointestinal/Abdominal: Denies: no symptoms, abdomen distended, abdominal pain, black stools, tarry stools, blood in stool, constipated, diarrhea, difficulty swallowing, nausea, poor appetite, poor fluid intake, rectal bleeding , vomiting, other Genitourinary: Denies: no symptoms, burning, discharge, frequency, flank pain, hematuria, incontinence, pain, urgency, other Neurologic/Psychiatric: Denies: no symptoms, anxiety, depressed, emotional problems, headache, numbness, paresthesia, pre-existing deficit, seizure, tingling, tremors, weakness, other Endocrine: Denies: no symptoms, excessive sweating, flushing, intolerance to cold, intolerance to heat, increased hunger, increased thirst, increased urine, unexplained weight gain, unexplained weight loss, other Allergies: Coded Allergies: No Known Allergies (Unverified , 10/04/18) Subjective 11/08/17: no fevers, to get HD scheduled, cbc reviewed Objective Last 24 Hour Vital Signs Date Time Temp Pulse Resp B/P (MAP) Pulse Ox O2 Delivery O2 Flow Rate FiO2 11/08/18 06:52 98.2 11/08/18 06:22 122/71 11/08/18 04:00 98.2 76 18 122/71 (88) 98 11/07/18 23:51 97.7 76 20 120/77 (91) 97 11/07/18 21:03 138/79 11/07/18 21:03 82 138/79 11/07/18 20:14 Room Air 11/07/18 20:00 97.2 82 18 138/79 (98) 97 11/07/18 16:00 98.0 62 19 126/75 (92) 95 11/07/18 13:03 137/73 11/07/18 12:00 98.2 81 18 137/73 (94) 97 11/07/18 10:11 97.1 11/07/18 09:32 89 143/86 11/07/18 09:00 Room Air Intake and Output 11/07/18 11/08/18 18:59 06:59 Intake Total 960 ml 500 ml Output Total 900 ml Balance 960 ml -400 ml Intake Oral 960 ml 500 ml Output Urine Total 900 ml # Bowel Movements 1 2 Height (Feet): 5 Height (Inches): 8.00 Weight (Pounds): 124 General Appearance: alert EENT: TMs normal Neck: abnormal alignment Respiratory/Chest: no respiratory distress Abdomen: no mass Extremities: normal inspection Edema: trace edema Neurologic: oriented x 3 Skin: warm/dry Gordo Jang MD Nov 08, 2018 08:09
[2018-11-08 09:00] VITALS: BP 115/82
[2018-11-08] MEDS: Carvedilol 25mg Tab ORAL SCH ×2 (09:00→21:11)
[2018-11-08] MEDS: Docusate 100mg cap ORAL SCH ×3 (09:00→18:00)
[2018-11-08] MEDS: Vitamin B Complex Tab ORAL SCH (09:21)
[2018-11-08] MEDS: OLANZapine 10mg tab ORAL SCH (09:21)
[2018-11-08] MEDS: Thiamine 100mg tab ORAL SCH (09:21)
[2018-11-08] MEDS: Heparin 5000 units/ml inj SUBQ SCH ×2 (09:21→21:00)
--- NOTE | 2018-11-08 10:46 | NUR ---
NURSE NOTES: pt in bed with no sob nor in any form of distress noted. all due meds given as ordered. will continue to monitor
--- NOTE | 2018-11-08 11:16 | Nephrology Progress Note ---
Assessment/Plan Problem List: (1) ESRD on dialysis (2) CHF (congestive heart failure) (3) Cardiomyopathy Assessment (1) Cardiomyopathy (2) ESRD on dialysis (3) Bacteremia (4) Homeless (5) Leukocytosis (6) Anemia of CKD (7) FTT (failure to thrive) in adult- malnutrition (8) Homeless Plan Continue meds HD as needed 11/09 next BP med adjustment Renal diet placement issue Subjective ROS Limited/Unobtainable: No Objective Objective Last 24 Hour Vital Signs Date Time Temp Pulse Resp B/P (MAP) Pulse Ox O2 Delivery O2 Flow Rate FiO2 11/08/18 09:00 98.1 83 20 115/82 (93) 99 11/08/18 09:00 Room Air 11/08/18 06:52 98.2 11/08/18 06:22 122/71 11/08/18 04:00 98.2 76 18 122/71 (88) 98 11/07/18 23:51 97.7 76 20 120/77 (91) 97 11/07/18 21:03 138/79 11/07/18 21:03 82 138/79 11/07/18 20:14 Room Air 11/07/18 20:00 97.2 82 18 138/79 (98) 97 11/07/18 16:00 98.0 62 19 126/75 (92) 95 11/07/18 13:03 137/73 11/07/18 12:00 98.2 81 18 137/73 (94) 97 Intake and Output 11/07/18 11/08/18 19:00 07:00 Intake Total 960 ml 500 ml Output Total 900 ml Balance 960 ml -400 ml Intake Oral 960 ml 500 ml Output Urine Total 900 ml # Bowel Movements 1 2 Height (Feet): 5 Height (Inches): 8.00 Weight (Pounds): 124 General Appearance: no apparent distress Objective no change David Meyers MD Nov 08, 2018 11:16
[2018-11-08 12:00] VITALS: BP 147/75
--- NOTE | 2018-11-08 12:04 | NUR ---
MRI LUMBAR COMPLETED.
--- NOTE | 2018-11-08 13:27 | Pulmonology Progress Note ---
Assessment/Plan Problems: (1) Episode of generalized weakness (2) FTT (failure to thrive) in adult (3) ESRD on dialysis (4) Weakness (5) Schizophrenia (6) Cardiomyopathy (7) CHF (congestive heart failure) (8) Dialysis patient (9) Hepatitis C (10) Anemia Assessment/Plan ASSESSMENT: The patient is a 62-year-old homeless male with a history of IV drug use; hepatitis C; hepatopathy; end-stage renal disease, on dialysis via tunneled cath; and noncompliance with missed dialysis, presenting with weakness , failure to thrive, and need for placement, PROBLEM LIST: 1. End-stage renal disease, status post missed dialysis via PermCath. 2. Anemia, acute on chronic, with evidence of iron deficiency. 3. Hepatitis C. 4. Left thigh wound, imaging at [facility] reviewed. No evidence of abscess. 5. IV drug use. 6. Homelessness. 7. Need for placement 8. Hypothyroidism. 9. Chronic back pain, possible compression fracture TREATMENT PLAN: 1. BP control 2. Observe off Abx 3. Pain control/supportive care 4. F/U MRI LS 5. Pain management evaluation 6. Continue MVI/thiamine/Folate 7. Previously declined endoscopic evaluation, plan for OP Hep C erradication 8. Monitor HH, continue EPO - seen by GI and heme last admission 9. F/U renal recs 10. HD per renal 11. Continue Synthroid 12. DVT prophylaxis, heparin subcutaneous. 13. Diabetic renal diet. 14. The patient is a Full Code. 15. Social work evaluation 16. Monitor wounds Subjective Allergies: Coded Allergies: No Known Allergies (Unverified , 10/04/18) Subjective NITESH, AFVSS, Hb 8 Getting dialyzed today Unchanged pain MRI done, report pending No F/C/CP/SOB/N/V/D/C Worked with PT Objective Last 24 Hour Vital Signs Date Time Temp Pulse Resp B/P (MAP) Pulse Ox O2 Delivery O2 Flow Rate FiO2 11/08/18 13:23 147/75 11/08/18 09:00 98.1 83 20 115/82 (93) 99 11/08/18 09:00 Room Air 11/08/18 06:52 98.2 11/08/18 06:22 122/71 11/08/18 04:00 98.2 76 18 122/71 (88) 98 11/07/18 23:51 97.7 76 20 120/77 (91) 97 11/07/18 21:03 138/79 11/07/18 21:03 82 138/79 11/07/18 20:14 Room Air 11/07/18 20:00 97.2 82 18 138/79 (98) 97 11/07/18 16:00 98.0 62 19 126/75 (92) 95 Intake and Output 11/07/18 11/08/18 19:00 07:00 Intake Total 960 ml 500 ml Output Total 900 ml Balance 960 ml -400 ml Intake Oral 960 ml 500 ml Output Urine Total 900 ml # Bowel Movements 1 2 General Appearance: no acute distress, cachetic HEENT: normocephalic, atraumatic, anicteric, mucous membranes moist Respiratory/Chest: chest wall non-tender, lungs clear, normal breath sounds, no respiratory distress, no accessory muscle use Cardiovascular: normal peripheral pulses, normal rate, regular rhythm Abdomen: normal bowel sounds, soft, non tender, no organomegaly, non distended , no mass Extremities: no cyanosis, no clubbing, no edema Microbiology Date/Time Source Procedure Growth Status 11/06/18 09:05 Stool Clostridium difficile Toxin Assay - Final Complete Current Medications Medications (Trade) Dose Ordered Sig/Mary Kay Route PRN Reason Start Time Stop Time Status Last Admin Dose Admin Acetaminophen (Tylenol) 650 mg Q6H PRN ORAL Mild Pain/Temp > 100.5 11/05/18 20:00 12/05/18 19:59 Baclofen (Lioresal) 10 mg TIDPRN PRN ORAL muscle spasm 11/07/18 11:30 12/07/18 11:29 Carvedilol (Coreg) 25 mg EVERY 12 HOURS ORAL 11/05/18 21:00 12/05/18 20:59 11/07/18 21:03 Diphenoxylate HCl/ Atropine (Lomotil) 2.5 mg Q4H PRN ORAL Diarrhea 11/06/18 12:00 12/06/18 11:59 11/06/18 16:50 Docusate Sodium (Colace) 100 mg THREE TIMES A DAY ORAL 11/06/18 18:00 12/06/18 08:59 Epoetin David (Procrit (for ESRD on dialysis)) 10,000 units THU SUBQ 11/08/18 21:00 12/08/18 20:59 Folic Acid (Folate) 1 mg DAILY ORAL 11/06/18 09:00 12/06/18 08:59 11/08/18 09:21 Heparin Sodium (Porcine) (Heparin 5000 units/ml) 5,000 units EVERY 12 HOURS SUBQ 11/06/18 21:00 12/06/18 20:59 11/08/18 09:21 Hydralazine HCl (Apresoline) 25 mg Q8HR ORAL 11/05/18 22:00 12/05/18 21:59 11/08/18 13:23 Levothyroxine Sodium (Synthroid) 25 mcg DAILY@0630 ORAL 11/06/18 06:30 12/06/18 06:29 11/08/18 06:21 Mirtazapine (Remeron) 15 mg BEDTIME ORAL 11/05/18 21:00 12/05/18 20:59 11/07/18 21:03 Multivitamins (Multivitamins) 1 tab DAILY ORAL 11/06/18 09:00 12/06/18 08:59 11/08/18 09:20 Olanzapine (ZyPREXA) 30 mg DAILY ORAL 11/05/18 20:00 12/05/18 19:59 11/08/18 09:21 Oxycodone/ Acetaminophen (Percocet 5-325) 1 tab Q4H PRN ORAL severe pain 11/07/18 11:30 11/14/18 11:29 11/08/18 13:24 Pantoprazole (Protonix) 40 mg DAILY ORAL 11/06/18 09:00 12/06/18 08:59 11/08/18 09:21 Sevelamer Carbonate (Renvela) 2,400 mg THREE TIMES A DAY ORAL 11/06/18 18:00 12/06/18 17:59 11/08/18 13:24 Thiamine HCl (Vitamin B1) 100 mg DAILY ORAL 11/06/18 09:00 12/06/18 08:59 11/08/18 09:21 Vitamin B Complex (Vitamin B Complex) 1 tab DAILY ORAL 11/06/18 09:00 12/06/18 08:59 11/08/18 09:21 Michael Coleman MD Nov 08, 2018 13:27
--- NOTE | 2018-11-08 15:59 | Diagnostic Imaging Report ---
Indication: Low back pain with radiculopathy Technique: Sagittal T1 and T2 fast spin echo, sagittal STIR, axial T1 and T2 fast spin-echo images of the lumbar spine Comparison: Lumbar spine radiograph dated 11/01/2018 Findings: There is depression of the inferior endplate of L3 and equivocally slight loss of height anteriorly. No significant marrow abnormality demonstrated other than a very slight degree of edema on the STIR images adjacent to the anterior aspect of the inferior endplate. Within the L1 vertebral body, there is an ovoid focus of low T1 and high T2 and STIR signal which measures 11 mm in diameter. No other marrow abnormalities are demonstrated. Bony alignment is normal. The remaining vertebral body heights are preserved. The conus medullaris terminates at the L1-2 level. At L2-3, there is mild disc desiccation and minimal circumferential annular bulge which does not significantly impinge upon the spinal canal or neural foramina. There is mild bilateral facet arthrosis. The disc space is preserved. At L3-4, there is mild circumferential annular bulge which does not significantly compromise the spinal canal. It may impinge slightly upon the neural foramina bilaterally. There is disc desiccation. There is actually slight widening of the apparent disc space due to the above-described inferior L3 endplate depression. At L4-5, circumferential annular bulge results in mild narrowing of the spinal canal, narrowed to 9 mm minimum AP dimension. There may be a small annular fissure in the posterior disc. The disc space is preserved. There is minimal narrowing of the bilateral neural foramina as result of the bulging disc. At L5-S1, there is moderate degenerative disc narrowing. There is mild circumferential annular bulge. This does not significantly compromise the spinal canal, may result in mild compromise of the bilateral neural foramina. There is bilateral facet arthrosis. The bilateral sacroiliac joints appear narrowed. The surrounding soft tissues are unremarkable Impression: Mild degenerative changes, as detailed on a level by level basis above, including borderline spinal stenosis at L4-5, and borderline neural foraminal stenosis bilaterally at L4-5 and L5-S1 Chronic appearing endplate depression of the inferior endplate of L3. 11 mm signal lesion within the L1 vertebral body. Appearance is not typical of a hemangioma. Most likely represents an atypical hemangioma. However, other etiologies, including neoplasm, are also possible. Consider bone scan for further evaluation to assess for metabolic activity. Comparison with any outside images that may be available would also be useful No acute abnormality
[2018-11-08 16:00] VITALS: BP 140/80
--- NOTE | 2018-11-08 16:59 | NUR ---
CASE MANAGEMENT:REVIEW 11/08/18 SI: ESRD ON HD. WEAKNESS.FTT. FALL 98.6 89 20 147/75 99% ON RA IS: PROCRIT SQ MWF PERCOCET PO Q4HRS PRN HEPARIN SQ Q12 FOLATE PO QD PROTONIX PO QD SYNTHROID PO QD HYDRALAZINE PO Q8HRS COREG PO Q12 REMERON PO QHS : MED/SURG STATUS DCP: HOMELESS PLAN: SEEKING SNF PLACEMENT...ONLY ABLE TO AMBULATE 30FT
--- NOTE | 2018-11-08 17:01 | NUR ---
DISCHARGE PLANNING SPOKE WITH LEONIDES AT [facility] SHE IS WAITING FOR BETH FROM THE [facility] TO GIVE AUTHORIZATION FOR SNF LEONIDES SAID SHE WOULD CALL TOMORROW DIALYSIS WILL NEED TO BE SET UP FOR TO AND FROM SNF
--- NOTE | 2018-11-08 17:47 | General Progress Note ---
Subjective Allergies: Coded Allergies: No Known Allergies (Unverified , 10/04/18) Objective Last 24 Hour Vital Signs Date Time Temp Pulse Resp B/P (MAP) Pulse Ox O2 Delivery O2 Flow Rate FiO2 11/08/18 13:54 98.1 11/08/18 13:23 147/75 11/08/18 12:00 98.6 89 20 147/75 (99) 99 11/08/18 09:00 98.1 83 20 115/82 (93) 99 11/08/18 09:00 Room Air 11/08/18 06:22 122/71 11/08/18 04:00 98.2 76 18 122/71 (88) 98 11/07/18 23:51 97.7 76 20 120/77 (91) 97 11/07/18 21:03 138/79 11/07/18 21:03 82 138/79 11/07/18 20:14 Room Air 11/07/18 20:00 97.2 82 18 138/79 (98) 97 Intake and Output 11/07/18 11/08/18 19:00 07:00 Intake Total 960 ml 500 ml Output Total 900 ml Balance 960 ml -400 ml Intake Oral 960 ml 500 ml Output Urine Total 900 ml # Bowel Movements 1 2 Height (Feet): 5 Height (Inches): 8.00 Weight (Pounds): 120 Carlos Laird Nov 08, 2018 17:46
[2018-11-08] MEDS ORDERED: Naloxone 0.4mg/ml Inj IVP PRN (18:15)
--- NOTE | 2018-11-08 19:38 | NUR ---
HAND-OFF: Report given to PRISCILLA Thorne.
[2018-11-08 20:00] VITALS: BP 146/88
--- NOTE | 2018-11-08 20:00 | NUR ---
NURSE NOTES: Received patient comfortably resting in bed without complaints.
[2018-11-08] MEDS ORDERED: Epogen (for ESRD on dialysis) SUBQ SCH ×2 (21:00)
--- NOTE | 2018-11-08 21:57 | General Progress Note ---
Assessment/Plan Assessment/Plan (1) Lumbar DDD (2) Lumbar Spondylosis (3) Lumbar Radiculopathy (4) B/L Hip OA and pain (5) Left thigh wound (6) ESRD on dialysis Patient will be increased to Percocet 5/325mg 1.5 tabs. 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 D/w Dr. Dalton and he concurred. Subjective Date patient seen: Nov 08, 2018 Time patient seen: 05:45 - pm Allergies: Coded Allergies: No Known Allergies (Unverified , 10/04/18) Subjective REVIEW OF SYSTEMS: Denies rash, fever, chills, sweating, dizziness, drowsiness, or change in weight. No shortness of breath or chest pain. No nausea, vomiting, or blood in the stool or urine. No bowel or bladder incontinence. He is complaining of low back pain and bilateral lower extremity pain. SUBJECTIVE: Patient is in bed and continues to c/o severe pain with minimal relief on the current strength of Percocet. MRI was reviewed. Objective Last 24 Hour Vital Signs Date Time Temp Pulse Resp B/P (MAP) Pulse Ox O2 Delivery O2 Flow Rate FiO2 11/08/18 21:12 146/88 11/08/18 21:11 84 146/88 11/08/18 20:18 Room Air 11/08/18 20:00 97.7 84 16 146/88 (107) 98 11/08/18 18:50 98.1 11/08/18 16:00 98.6 76 20 140/80 (100) 99 11/08/18 13:54 98.1 11/08/18 13:23 147/75 11/08/18 12:00 98.6 89 20 147/75 (99) 99 11/08/18 09:00 98.1 83 20 115/82 (93) 99 11/08/18 09:00 Room Air 11/08/18 06:22 122/71 11/08/18 04:00 98.2 76 18 122/71 (88) 98 11/07/18 23:51 97.7 76 20 120/77 (91) 97 Intake and Output 11/07/18 11/08/18 19:00 07:00 Intake Total 960 ml 500 ml Output Total 900 ml Balance 960 ml -400 ml Intake Oral 960 ml 500 ml Output Urine Total 900 ml # Bowel Movements 1 2 Height (Feet): 5 Height (Inches): 8.00 Weight (Pounds): 120 Objective GENERAL: Alert, awake, and oriented. LUNGS: Decreased breath sounds bilaterally. HEART: S1 and S2 regular. ABDOMEN: Soft, nontender. EXTREMITIES: No cyanosis. No clubbing. NEURO: No changes. Procedure: MRI L Spine no Contrast Indication: Low back pain with radiculopathy Findings: There is depression of the inferior endplate of L3 and equivocally slight loss of height anteriorly. No significant marrow abnormality demonstrated other than a very slight degree of edema on the STIR images adjacent to the anterior aspect of the inferior endplate. Within the L1 vertebral body, there is an ovoid focus of low T1 and high T2 and STIR signal which measures 11 mm in diameter. No other marrow abnormalities are demonstrated. Bony alignment is normal. The remaining vertebral body heights are preserved. The conus medullaris terminates at the L1-2 level. At L2-3, there is mild disc desiccation and minimal circumferential annular bulge which does not significantly impinge upon the spinal canal or neural foramina. There is mild bilateral facet arthrosis. The disc space is preserved. At L3-4, there is mild circumferential annular bulge which does not significantly compromise the spinal canal. It may impinge slightly upon the neural foramina bilaterally. There is disc desiccation. There is actually slight widening of the apparent disc space due to the above-described inferior L3 endplate depression. At L4-5, circumferential annular bulge results in mild narrowing of the spinal canal, narrowed to 9 mm minimum AP dimension. There may be a small annular fissure in the posterior disc. The disc space is preserved. There is minimal narrowing of the bilateral neural foramina as result of the bulging disc. At L5-S1, there is moderate degenerative disc narrowing. There is mild circumferential annular bulge. This does not significantly compromise the spinal canal, may result in mild compromise of the bilateral neural foramina. There is bilateral facet arthrosis. The bilateral sacroiliac joints appear narrowed. The surrounding soft tissues are unremarkable Impression: Mild degenerative changes, as detailed on a level by level basis above, including borderline spinal stenosis at L4-5, and borderline neural foraminal stenosis bilaterally at L4-5 and L5-S1 Chronic appearing endplate depression of the inferior endplate of L3. 11 mm signal lesion within the L1 vertebral body. Appearance is not typical of a hemangioma. Most likely represents an atypical hemangioma. However, other etiologies, including neoplasm, are also possible. Consider bone scan for further evaluation to assess for metabolic activity. Comparison with any outside images that may be available would also be useful No acute abnormality Carlos Laird Nov 08, 2018 21:57
[2018-11-09 00:32] VITALS: BP 138/70
[2018-11-09] MEDS: oxyCODONE HCL/Acetaminophen 5/325mg ORAL PRN ×4 (01:23→21:24)
[2018-11-09 04:00] VITALS: BP 135/86
[2018-11-09] MEDS: Levothyroxine 25mcg tab ORAL SCH (05:37)
[2018-11-09] MEDS: HydrALAZINE 25mg tab ORAL SCH ×3 (05:37→21:24)
--- NOTE | 2018-11-09 07:21 | NUR ---
HAND-OFF: Report given to PRISCILLA Hugo.
[2018-11-09 08:00] VITALS: BP 144/79
--- NOTE | 2018-11-09 08:03 | NUR ---
NURSE NOTES: Received patient alert, oriented. in bed, eating breakfast. assisted with AM care. All needs attended. Call light made within reach.
--- NOTE | 2018-11-09 08:45 | General Progress Note ---
Assessment/Plan Assessment/Plan (1) Lumbar DDD (2) Lumbar Spondylosis (3) Lumbar Radiculopathy (4) B/L Hip OA and pain (5) Left thigh wound (6) ESRD on dialysis Patient will be continued on Percocet D/w Dr. Dalton and he concurred. Subjective Date patient seen: Nov 09, 2018 Time patient seen: 07:00 - am Allergies: Coded Allergies: No Known Allergies (Unverified , 10/04/18) Subjective REVIEW OF SYSTEMS: Denies rash, fever, chills, sweating, dizziness, drowsiness, or change in weight. No shortness of breath or chest pain. No nausea, vomiting, or blood in the stool or urine. No bowel or bladder incontinence. He is complaining of low back pain and bilateral lower extremity pain. SUBJECTIVE: Patient is in bed pain is tolerated on the Percocet. He has no new complaints. Objective Last 24 Hour Vital Signs Date Time Temp Pulse Resp B/P (MAP) Pulse Ox O2 Delivery O2 Flow Rate FiO2 11/09/18 05:37 135/86 11/09/18 04:00 97.6 72 17 135/86 (102) 100 11/09/18 01:53 97.8 11/09/18 00:32 97.8 71 16 138/70 (92) 98 11/08/18 21:12 146/88 11/08/18 21:11 84 146/88 11/08/18 20:18 Room Air 11/08/18 20:00 97.7 84 16 146/88 (107) 98 11/08/18 16:00 98.6 76 20 140/80 (100) 99 11/08/18 13:54 98.1 11/08/18 13:23 147/75 11/08/18 12:00 98.6 89 20 147/75 (99) 99 11/08/18 09:00 98.1 83 20 115/82 (93) 99 11/08/18 09:00 Room Air Intake and Output 11/08/18 11/09/18 18:59 06:59 Intake Total 480 ml 900 ml Output Total 1 ml 1400 ml Balance 479 ml -500 ml Intake Oral 480 ml 900 ml Output Urine Total 1 ml 1400 ml # Voids 3 # Bowel Movements 1 Height (Feet): 5 Height (Inches): 8.00 Weight (Pounds): 120 Objective GENERAL: Alert, awake, and oriented. LUNGS: Decreased breath sounds bilaterally. HEART: S1 and S2 regular. ABDOMEN: Soft, nontender. EXTREMITIES: No cyanosis. No clubbing. NEURO: No changes. Carlos Laird Nov 09, 2018 08:44
[2018-11-09] MEDS: OLANZapine 10mg tab ORAL SCH (08:47)
[2018-11-09] MEDS: Vitamin B Complex Tab ORAL SCH (08:47)
[2018-11-09] MEDS: Thiamine 100mg tab ORAL SCH (08:47)
[2018-11-09] MEDS: Heparin 5000 units/ml inj SUBQ SCH ×2 (08:54→21:29)
[2018-11-09] MEDS: Docusate 100mg cap ORAL SCH ×3 (08:54→18:00)
[2018-11-09] MEDS: Carvedilol 25mg Tab ORAL SCH ×2 (08:54→21:24)
[2018-11-09 12:00] VITALS: BP 123/79
[2018-11-09] MEDS ORDERED: Heparin Sod 1000 units/ml 10ml INJ PRN (12:15)
--- NOTE | 2018-11-09 13:13 | Nephrology Progress Note ---
Assessment/Plan Problem List: (1) ESRD on dialysis (2) CHF (congestive heart failure) (3) Cardiomyopathy Assessment (1) Cardiomyopathy (2) ESRD on dialysis (3) Bacteremia (4) Homeless (5) Leukocytosis (6) Anemia of CKD (7) FTT (failure to thrive) in adult- malnutrition (8) Homeless Plan Continue meds HD as needed 11/09 next- on HD now tolerating well. BP med adjustment Renal diet placement issue Subjective ROS Limited/Unobtainable: No Constitutional: Reports: malaise Objective Objective Last 24 Hour Vital Signs Date Time Temp Pulse Resp B/P (MAP) Pulse Ox O2 Delivery O2 Flow Rate FiO2 11/09/18 09:00 Room Air 11/09/18 08:54 89 144/79 11/09/18 08:00 97.4 89 17 144/79 (100) 100 11/09/18 05:37 135/86 11/09/18 04:00 97.6 72 17 135/86 (102) 100 11/09/18 01:53 97.8 11/09/18 00:32 97.8 71 16 138/70 (92) 98 11/08/18 21:12 146/88 11/08/18 21:11 84 146/88 11/08/18 20:18 Room Air 11/08/18 20:00 97.7 84 16 146/88 (107) 98 11/08/18 16:00 98.6 76 20 140/80 (100) 99 11/08/18 13:54 98.1 11/08/18 13:23 147/75 Intake and Output 11/08/18 11/09/18 19:00 07:00 Intake Total 480 ml 900 ml Output Total 1 ml 1400 ml Balance 479 ml -500 ml Intake Oral 480 ml 900 ml Output Urine Total 1 ml 1400 ml # Voids 3 # Bowel Movements 1 Current Medications Medications (Trade) Dose Ordered Sig/Mary Kay Route PRN Reason Start Time Stop Time Status Last Admin Dose Admin Acetaminophen (Tylenol) 650 mg Q6H PRN ORAL Mild Pain/Temp > 100.5 11/05/18 20:00 12/05/18 19:59 Baclofen (Lioresal) 10 mg TIDPRN PRN ORAL muscle spasm 11/07/18 11:30 12/07/18 11:29 11/08/18 21:11 Carvedilol (Coreg) 25 mg EVERY 12 HOURS ORAL 11/05/18 21:00 12/05/18 20:59 11/08/18 21:11 Diphenoxylate HCl/ Atropine (Lomotil) 2.5 mg Q4H PRN ORAL Diarrhea 11/06/18 12:00 12/06/18 11:59 11/06/18 16:50 Docusate Sodium (Colace) 100 mg THREE TIMES A DAY ORAL 11/06/18 18:00 12/06/18 08:59 Epoetin David (Procrit (for ESRD on dialysis)) 10,000 units THU-THU-THU SUBQ 11/08/18 21:00 12/08/18 20:59 11/08/18 21:13 Folic Acid (Folate) 1 mg DAILY ORAL 11/06/18 09:00 12/06/18 08:59 11/09/18 08:47 Heparin Sodium (Porcine) (Heparin 5000 units/ml) 5,000 units EVERY 12 HOURS SUBQ 11/06/18 21:00 12/06/18 20:59 11/08/18 09:21 Heparin Sodium (Porcine) (Heparin Sod 1000 units/ml 10ml) 10,000 unit ONCE PRN INJ FOR HD 11/09/18 12:15 11/09/18 23:59 Hydralazine HCl (Apresoline) 25 mg Q8HR ORAL 11/05/18 22:00 12/05/18 21:59 11/09/18 05:37 Levothyroxine Sodium (Synthroid) 25 mcg DAILY@0630 ORAL 11/06/18 06:30 12/06/18 06:29 11/09/18 05:37 Mirtazapine (Remeron) 15 mg BEDTIME ORAL 11/05/18 21:00 12/05/18 20:59 11/08/18 21:11 Multivitamins (Multivitamins) 1 tab DAILY ORAL 11/06/18 09:00 12/06/18 08:59 11/09/18 08:47 Naloxone HCl (Narcan) 0.2 mg Q30M PRN IVP respritory depression RR<8/min 11/08/18 18:15 12/08/18 18:14 Olanzapine (ZyPREXA) 30 mg DAILY ORAL 11/05/18 20:00 12/05/18 19:59 11/09/18 08:47 Oxycodone/ Acetaminophen (Percocet 5-325) 1.5 tab Q4H PRN ORAL Severe Pain (Pain Scale 7-10) 11/08/18 18:15 11/14/18 18:14 11/09/18 08:52 Pantoprazole (Protonix) 40 mg DAILY ORAL 11/06/18 09:00 12/06/18 08:59 11/09/18 08:47 Sevelamer Carbonate (Renvela) 2,400 mg THREE TIMES A DAY ORAL 11/06/18 18:00 12/06/18 17:59 11/09/18 08:47 Thiamine HCl (Vitamin B1) 100 mg DAILY ORAL 11/06/18 09:00 12/06/18 08:59 11/09/18 08:47 Vitamin B Complex (Vitamin B Complex) 1 tab DAILY ORAL 11/06/18 09:00 12/06/18 08:59 11/09/18 08:47 Height (Feet): 5 Height (Inches): 8.00 Weight (Pounds): 120 General Appearance: no apparent distress Cardiovascular: normal rate Respiratory/Chest: decreased breath sounds Abdomen: soft Objective no change David Meyers MD Nov 09, 2018 13:13
--- NOTE | 2018-11-09 13:27 | NUR ---
RD ASSESSMENT & RECOMMENDATIONS SEE CARE ACTIVITY FOR COMPLETE ASSESSMENT DAILY ESTIMATED NEEDS: Needs based on ESRD on HD, underweight est 54.5kg 30-40 kcals/kg 5751-5351 total kcals 1.25-1.8 g protein/kg 68-98 g total protein Fluid per MD. On HD NUTRITION DIAGNOSIS: Increased kcal and protein needs r/t renal dysfunction and underweight status as evidenced by pt w/ ESRD on HD, w/ generalized moderate to severe wasting. CURRENT DIET: Renal PO DIET RECOMMENDATIONS: RENAL DIET / SOFT EASY CHEW ADDITIONAL RECOMMENDATIONS: 1) Pt does not want want Nepro @ this time 2) Add high kcal/ high prot snacks TID in b/w alll meals 3) RE-calibrate bed scale for accurate CBW 4) Monitor PO intake-> good intake at this time 5) Wound care: add ANNITA BID for skin integrity 6) Monitor renal labs and lytes
--- NOTE | 2018-11-09 13:59 | NUR ---
LIEUTENANT/DEPUTY NOTES PT ACCEPTED TO [facility] ROOM 37 BED B. SKILLED.AUTHORIZATION FOR TRANSPORTATION [phone] [facility]. WILL CALL FOR [employer] ONCE HD VERIFIED. Addendum: 11/09/18 at 1417 by OPAL HUERTA RN RN [facility] [address] [place] [id number] [facility] [phone] HD CONF # [id number] (HD) Addendum: 11/09/18 at 1432 by OPAL HUERTA RN RN SPOKE WITH CHEY FROM [facility] [employer] UPDATED PT'S [employer] SPECIALIST ADDRESS TO CURRENT DISCHARGE ADDRESS. HD DAYS AND TIMES VERIFIED T TH SAT @ 1600.
--- NOTE | 2018-11-09 14:15 | NUR ---
DISCHARGE PLANNED PATIENT DISCAHRGE TO: [facility] ROOM# 37-B SKILLED T:[phone] FOR NURSE TO NURSE REPORT
--- NOTE | 2018-11-09 14:45 | Pulmonology Progress Note ---
Assessment/Plan Problems: (1) Episode of generalized weakness (2) FTT (failure to thrive) in adult (3) ESRD on dialysis (4) Weakness (5) Schizophrenia (6) Cardiomyopathy (7) CHF (congestive heart failure) (8) Dialysis patient (9) Hepatitis C (10) Anemia Assessment/Plan ASSESSMENT: The patient is a 62-year-old homeless male with a history of IV drug use; hepatitis C; hepatopathy; end-stage renal disease, on dialysis via tunneled cath; and noncompliance with missed dialysis, presenting with weakness , failure to thrive, and need for placement, PROBLEM LIST: 1. End-stage renal disease, status post missed dialysis via PermCath. 2. Anemia, acute on chronic, with evidence of iron deficiency. 3. Hepatitis C. 4. Left thigh wound, imaging at [facility] reviewed. No evidence of abscess. 5. IV drug use. 6. Homelessness. 7. Need for placement 8. Hypothyroidism. 9. Chronic back pain: DDD, spinal stenosis, 11 mm abnormal L1 lesion TREATMENT PLAN: 1. BP control 2. Observe off Abx 3. Pain control/supportive care 4. MRI LS reviewed, discussed with pain management, bone scan and spine eval pending 5. Pain management recs 6. Continue MVI/thiamine/Folate 7. Previously declined endoscopic evaluation, plan for OP Hep C erradication 8. Monitor HH, continue EPO - seen by GI and heme last admission 9. F/U renal recs 10. HD per renal 11. Continue Synthroid 12. DVT prophylaxis, heparin subcutaneous. 13. Diabetic renal diet. 14. The patient is a Full Code. 15. Social work recs --> Dispo planning, CV WW likely tommorrow if cleared by ortho 16. Monitor wounds Subjective Allergies: Coded Allergies: No Known Allergies (Unverified , 10/04/18) Subjective NITESH, AFVSS Accepted to CV [facility] Unchanged pain MRI done --> abnormal L1 vertebral body lesion No F/C/CP/SOB/N/V/D/C Objective Last 24 Hour Vital Signs Date Time Temp Pulse Resp B/P (MAP) Pulse Ox O2 Delivery O2 Flow Rate FiO2 11/09/18 14:00 144/79 11/09/18 12:00 98.6 102 17 123/79 (94) 100 11/09/18 09:00 Room Air 11/09/18 08:54 89 144/79 11/09/18 08:00 97.4 89 17 144/79 (100) 100 11/09/18 05:37 135/86 11/09/18 04:00 97.6 72 17 135/86 (102) 100 11/09/18 01:53 97.8 11/09/18 00:32 97.8 71 16 138/70 (92) 98 11/08/18 21:12 146/88 11/08/18 21:11 84 146/88 11/08/18 20:18 Room Air 11/08/18 20:00 97.7 84 16 146/88 (107) 98 11/08/18 16:00 98.6 76 20 140/80 (100) 99 Intake and Output 11/08/18 11/09/18 19:00 07:00 Intake Total 480 ml 900 ml Output Total 1 ml 1400 ml Balance 479 ml -500 ml Intake Oral 480 ml 900 ml Output Urine Total 1 ml 1400 ml # Voids 3 # Bowel Movements 1 General Appearance: no acute distress HEENT: normocephalic, atraumatic, anicteric, mucous membranes moist Respiratory/Chest: chest wall non-tender, lungs clear, normal breath sounds, no respiratory distress, no accessory muscle use Cardiovascular: normal peripheral pulses, normal rate, regular rhythm Abdomen: normal bowel sounds, soft, non tender, no organomegaly, non distended , no mass Extremities: no cyanosis, no clubbing, no edema Current Medications Medications (Trade) Dose Ordered Sig/Mary Kay Route PRN Reason Start Time Stop Time Status Last Admin Dose Admin Acetaminophen (Tylenol) 650 mg Q6H PRN ORAL Mild Pain/Temp > 100.5 11/05/18 20:00 12/05/18 19:59 Baclofen (Lioresal) 10 mg TIDPRN PRN ORAL muscle spasm 11/07/18 11:30 12/07/18 11:29 11/08/18 21:11 Carvedilol (Coreg) 25 mg EVERY 12 HOURS ORAL 11/05/18 21:00 12/05/18 20:59 11/08/18 21:11 Diphenoxylate HCl/ Atropine (Lomotil) 2.5 mg Q4H PRN ORAL Diarrhea 11/06/18 12:00 2/4/19 11:59 11/06/18 16:50 Docusate Sodium (Colace) 100 mg THREE TIMES A DAY ORAL 11/06/18 18:00 12/06/18 08:59 Epoetin David (Procrit (for ESRD on dialysis)) 10,000 units THU-THU-THU SUBQ 11/08/18 21:00 12/08/18 20:59 11/08/18 21:13 Folic Acid (Folate) 1 mg DAILY ORAL 11/06/18 09:00 12/06/18 08:59 11/09/18 08:47 Heparin Sodium (Porcine) (Heparin 5000 units/ml) 5,000 units EVERY 12 HOURS SUBQ 11/06/18 21:00 12/06/18 20:59 11/08/18 09:21 Heparin Sodium (Porcine) (Heparin Sod 1000 units/ml 10ml) 10,000 unit ONCE PRN INJ FOR HD 11/09/18 12:15 11/09/18 23:59 11/09/18 13:53 Hydralazine HCl (Apresoline) 25 mg Q8HR ORAL 11/05/18 22:00 12/05/18 21:59 11/09/18 05:37 Levothyroxine Sodium (Synthroid) 25 mcg DAILY@0630 ORAL 11/06/18 06:30 12/06/18 06:29 11/09/18 05:37 Mirtazapine (Remeron) 15 mg BEDTIME ORAL 11/05/18 21:00 12/05/18 20:59 11/08/18 21:11 Multivitamins (Multivitamins) 1 tab DAILY ORAL 11/06/18 09:00 12/06/18 08:59 11/09/18 08:47 Naloxone HCl (Narcan) 0.2 mg Q30M PRN IVP respritory depression RR<8/min 11/08/18 18:15 12/08/18 18:14 Olanzapine (ZyPREXA) 30 mg DAILY ORAL 11/05/18 20:00 12/05/18 19:59 11/09/18 08:47 Oxycodone/ Acetaminophen (Percocet 5-325) 1.5 tab Q4H PRN ORAL Severe Pain (Pain Scale 7-10) 11/08/18 18:15 11/14/18 18:14 11/09/18 08:52 Pantoprazole (Protonix) 40 mg DAILY ORAL 11/06/18 09:00 12/06/18 08:59 11/09/18 08:47 Sevelamer Carbonate (Renvela) 2,400 mg THREE TIMES A DAY ORAL 11/06/18 18:00 12/06/18 17:59 11/09/18 08:47 Thiamine HCl (Vitamin B1) 100 mg DAILY ORAL 11/06/18 09:00 12/06/18 08:59 11/09/18 08:47 Vitamin B Complex (Vitamin B Complex) 1 tab DAILY ORAL 11/06/18 09:00 12/06/18 08:59 11/09/18 08:47 Michael Coleman MD Nov 09, 2018 14:45
[2018-11-09 16:00] VITALS: BP 128/79
--- NOTE | 2018-11-09 16:29 | NUR ---
NURSE NOTES: pt receded dialysis treatment. spoke with Dr. Coleman , per MD hold discharge today, will order NM bone scan for am. noted.
--- NOTE | 2018-11-09 17:06 | General Progress Note ---
Assessment/Plan Assessment/Plan #. Anemia of kidney disease/esrd -- anemia panel reviewed, has end-stage renal disease, status post missed dialysis via PermCath. --> transfuse on prn basis, if hgb <7 --> no evidence for hemolysis noted --> do not recommend iron at this time --> cont po folic acid and thiamine daily --> HD on permacath R arm --> getting epogen since hd and esrd, also vit b/folic acid --> hemoglobin electrophoresis is normal, no sickle cell trait noted --> no indication for iv iron --> hgb 7.7-->7.6-->7.8-->8.2-->8.6-->9.3-->8.2 #. Thrombocytopenia due to underlying Hepatitis C. has been chronic --> Trend 200s-->134k-->153k --> afp 2.1, and trend plts as needed --> peripheral smear reviewed --> on abx as per ID #. Leukocytosis likely due to infection. --> Improved/Resolved --> completed IV abx #. Left thigh wound, imaging at [facility] reviewed. No evidence of abscess. --> completed abx as per id --> skin protectant per surg #. IV drug use. #. Homelessness. #. Systemic inflammatory response syndrome. #. Hypothyroidism. #. Hep C -- outpatient eradication #. ESRD on hd 3x a week as per renal #. DVT ppx with heparin sq GREATLY APPRECIATE CONSULTATION. Date and time note entered does not reflect time of patient encounter. Subjective Constitutional: Denies: no symptoms, chills, diaphoresis, fever, malaise, weakness, other HEENT: Denies: no symptoms, eye pain, blurred vision, tearing, double vision, ear pain, ear discharge, nose pain, nose congestion, throat pain, throat swelling, mouth pain, mouth swelling, other Cardiovascular: Denies: no symptoms, chest pain, edema, irregular heart rate, lightheadedness, palpitations, syncope, other Respiratory: Denies: no symptoms, cough, orthopnea, shortness of breath, SOB with excertion, SOB at rest, sputum, stridor, wheezing, other Gastrointestinal/Abdominal: Denies: no symptoms, abdomen distended, abdominal pain, black stools, tarry stools, blood in stool, constipated, diarrhea, difficulty swallowing, nausea, poor appetite, poor fluid intake, rectal bleeding , vomiting, other Genitourinary: Denies: no symptoms, burning, discharge, frequency, flank pain, hematuria, incontinence, pain, urgency, other Neurologic/Psychiatric: Denies: no symptoms, anxiety, depressed, emotional problems, headache, numbness, paresthesia, pre-existing deficit, seizure, tingling, tremors, weakness, other Endocrine: Denies: no symptoms, excessive sweating, flushing, intolerance to cold, intolerance to heat, increased hunger, increased thirst, increased urine, unexplained weight gain, unexplained weight loss, other Hematologic/Lymphatic: Denies: no symptoms, anemia, easy bleeding, easy bruising, other Allergies: Coded Allergies: No Known Allergies (Unverified , 10/04/18) Subjective 11/08/18: no fevers, to get HD scheduled, cbc reviewed 11/09/18: Pt is seen in the room, resting and comfortable, HD today, tolerated well, no events Objective Last 24 Hour Vital Signs Date Time Temp Pulse Resp B/P (MAP) Pulse Ox O2 Delivery O2 Flow Rate FiO2 11/09/18 16:00 98.0 89 17 128/79 (95) 100 11/09/18 15:39 Room Air 11/09/18 15:37 Room Air 11/09/18 14:00 144/79 11/09/18 12:00 98.6 102 17 123/79 (94) 100 11/09/18 09:00 Room Air 11/09/18 08:54 89 144/79 11/09/18 08:00 97.4 89 17 144/79 (100) 100 11/09/18 05:37 135/86 11/09/18 04:00 97.6 72 17 135/86 (102) 100 11/09/18 01:53 97.8 11/09/18 00:32 97.8 71 16 138/70 (92) 98 11/08/18 21:12 146/88 11/08/18 21:11 84 146/88 11/08/18 20:18 Room Air 11/08/18 20:00 97.7 84 16 146/88 (107) 98 Intake and Output 11/08/18 11/09/18 19:00 07:00 Intake Total 480 ml 900 ml Output Total 1 ml 1400 ml Balance 479 ml -500 ml Intake Oral 480 ml 900 ml Output Urine Total 1 ml 1400 ml # Voids 3 # Bowel Movements 1 Height (Feet): 5 Height (Inches): 8.00 Weight (Pounds): 122 Gordo Jang MD Nov 09, 2018 17:06
--- NOTE | 2018-11-09 19:43 | NUR ---
HAND-OFF: Report given to PRISCILLA Mathews.
[2018-11-09 20:00] VITALS: BP 146/88
--- NOTE | 2018-11-09 23:42 | NUR ---
NURSE NOTES: Patient awake oriented x4, laying in bed with no signs of acute distress. IV site R hand, patent, dressing intact. Bed on lowest position, call light within reach.
[2018-11-10] VITALS: BP 123/71
[2018-11-10] MEDS: oxyCODONE HCL/Acetaminophen 5/325mg ORAL PRN ×3 (01:39→09:50)
[2018-11-10 04:00] VITALS: BP 140/71
[2018-11-10] MEDS: Lomotil 2.5mg tab ORAL PRN (05:44)
[2018-11-10] MEDS: Levothyroxine 25mcg tab ORAL SCH (05:45)
[2018-11-10] MEDS: HydrALAZINE 25mg tab ORAL SCH ×2 (05:45→13:34)
--- NOTE | 2018-11-10 07:23 | NUR ---
HAND-OFF: Report given to PRISCILLA Epps. Endorsed IV out for patient. Patient ok to have new IV.
--- NOTE | 2018-11-10 07:27 | NUR ---
RECEIVED REPORT PRISCILLA CONNOR
[2018-11-10 07:57] VITALS: BP 127/76
--- NOTE | 2018-11-10 08:49 | General Progress Note ---
Assessment/Plan Assessment/Plan (1) Lumbar DDD (2) Lumbar Spondylosis (3) Lumbar Radiculopathy (4) B/L Hip OA and pain (5) Left thigh wound (6) ESRD on dialysis Patient will be continued on Percocet D/w Dr. Dalton and he concurred. Subjective Date patient seen: Nov 10, 2018 Time patient seen: 07:00 - am Allergies: Coded Allergies: No Known Allergies (Unverified , 10/04/18) Subjective REVIEW OF SYSTEMS: Denies rash, fever, chills, sweating, dizziness, drowsiness, or change in weight. No shortness of breath or chest pain. No nausea, vomiting, or blood in the stool or urine. No bowel or bladder incontinence. He is complaining of low back pain and bilateral lower extremity pain. SUBJECTIVE: Patient is in bed and has been tolerated on the Percocet. He has no new complaints. Objective Last 24 Hour Vital Signs Date Time Temp Pulse Resp B/P (MAP) Pulse Ox O2 Delivery O2 Flow Rate FiO2 11/10/18 07:57 97.8 88 20 127/76 (93) 98 11/10/18 05:45 140/71 11/10/18 04:00 98.3 75 17 140/71 (94) 96 11/10/18 00:00 98.0 74 16 123/71 (88) 96 11/09/18 21:24 128/79 11/09/18 21:24 89 128/79 11/09/18 21:00 Room Air 11/09/18 20:00 98.0 89 18 146/88 (107) 96 11/09/18 16:00 98.0 89 17 128/79 (95) 100 11/09/18 15:39 Room Air 11/09/18 15:37 Room Air 11/09/18 14:00 144/79 11/09/18 12:00 98.6 102 17 123/79 (94) 100 11/09/18 09:00 Room Air 11/09/18 08:54 89 144/79 Intake and Output 11/09/18 11/10/18 18:59 06:59 Intake Total 720 ml Output Total 2400 ml 600 ml Balance -1680 ml -600 ml Intake Oral 720 ml Output Urine Total 400 ml 600 ml Hemodialysis UF 2000 ml # Bowel Movements 4 4 Height (Feet): 5 Height (Inches): 8.00 Weight (Pounds): 188 Objective GENERAL: Alert, awake, and oriented. LUNGS: Decreased breath sounds bilaterally. HEART: S1 and S2 regular. ABDOMEN: Soft, nontender. EXTREMITIES: No cyanosis. No clubbing. NEURO: No changes. Carlos Laird Nov 10, 2018 08:49
[2018-11-10] MEDS: Docusate 100mg cap ORAL SCH ×3 (09:00→13:00)
[2018-11-10] MEDS: Heparin 5000 units/ml inj SUBQ SCH (09:00)
--- NOTE | 2018-11-10 09:00 | NUR ---
held heparin 5000 units SQ d/t Plt 146
[2018-11-10] MEDS: Vitamin B Complex Tab ORAL SCH (09:06)
[2018-11-10] MEDS: Thiamine 100mg tab ORAL SCH (09:06)
[2018-11-10] MEDS: OLANZapine 10mg tab ORAL SCH (09:06)
[2018-11-10] MEDS: Carvedilol 25mg Tab ORAL SCH (09:07)
--- NOTE | 2018-11-10 10:48 | NUR ---
INSURANCE ALL CLINICALS AND REVIEWS FAXED TO: [facility] F:[phone]
--- NOTE | 2018-11-10 10:53 | NUR ---
[facility] in the afternoon. explained procedures and patient verbalized understand. patient had more questions regarding discharge and asked to talk to telephonic case manager. left message to frandy VILLA
[2018-11-10 12:00] VITALS: BP 130/81
[2018-11-10 13:34] VITALS: BP 130/81
--- NOTE | 2018-11-10 15:15 | NUR ---
GAVE ADMISSON REPORT TO [facility] RICKI CLEARY, SPOKE WITH PRISCILLA VALDEZ
--- NOTE | 2018-11-10 15:40 | NUR ---
NURSE NOTES: Patient is discharged to the SNF via the ambulance. Discharge package with the discharge instructions are given to the ambulance personnel. Interfacility report is given to the Nathan in the facility. IV removed, no bleeding. ID band removed. Belongings reviewed and accounted for. Pt is stable upon discharge.
--- NOTE | 2018-11-10 15:47 | Diagnostic Imaging Report ---
Indication: Back pain, abnormal lumbar spine MRI Technique: IV administration 25.8 mCi 99 M technetium MDP. Whole body and spot images were obtained. Comparison: Reference made to MRI of the lumbar spine dated 11/08/2018 Findings: No abnormal activity is demonstrated in the lumbar spine correlate with the finding reported on recent MRI. A single focus of increased activity is seen in a right lateral rib, probably the seventh rib. No abnormal uptake is seen elsewhere. Absent renal and bladder activity, consistent with known history of dialysis dependent renal failure. Impression: No abnormal lumbar spine activity seen to correlate with finding reported on recent MRI. The lesion therefore highly likely benign, most likely an atypical hemangioma Single focus of right rib activity, suspect traumatic in nature. Absent renal and bladder activity, consistent with known history of dialysis dependent renal failure
--- NOTE | 2018-11-10 15:54 | Nephrology Progress Note ---
Assessment/Plan Problem List: (1) ESRD on dialysis (2) CHF (congestive heart failure) (3) Cardiomyopathy Assessment (1) Cardiomyopathy (2) ESRD on dialysis (3) Bacteremia (4) Homeless (5) Leukocytosis (6) Anemia of CKD (7) FTT (failure to thrive) in adult- malnutrition (8) Homeless Plan Continue meds HD 11/09 next 08/11 BP med adjustment Renal diet placement issue Subjective ROS Limited/Unobtainable: No Constitutional: Reports: malaise Objective Objective Last 24 Hour Vital Signs Date Time Temp Pulse Resp B/P (MAP) Pulse Ox O2 Delivery O2 Flow Rate FiO2 11/10/18 13:34 130/81 11/10/18 12:00 97.0 76 20 130/81 (97) 97 11/10/18 09:07 88 127/75 11/10/18 09:00 Room Air 11/10/18 07:57 97.8 88 20 127/76 (93) 98 11/10/18 05:45 140/71 11/10/18 04:00 98.3 75 17 140/71 (94) 96 11/10/18 00:00 98.0 74 16 123/71 (88) 96 11/09/18 21:24 128/79 11/09/18 21:24 89 128/79 11/09/18 21:00 Room Air 11/09/18 20:00 98.0 89 18 146/88 (107) 96 11/09/18 16:00 98.0 89 17 128/79 (95) 100 Intake and Output 11/09/18 11/10/18 19:00 07:00 Intake Total 720 ml Output Total 2400 ml 600 ml Balance -1680 ml -600 ml Intake Oral 720 ml Output Urine Total 400 ml 600 ml Hemodialysis UF 2000 ml # Bowel Movements 4 4 Current Medications Medications (Trade) Dose Ordered Sig/Mary Kay Route PRN Reason Start Time Stop Time Status Last Admin Dose Admin Acetaminophen (Tylenol) 650 mg Q6H PRN ORAL Mild Pain/Temp > 100.5 11/05/18 20:00 12/05/18 19:59 Baclofen (Lioresal) 10 mg TIDPRN PRN ORAL muscle spasm 11/07/18 11:30 12/07/18 11:29 11/08/18 21:11 Carvedilol (Coreg) 25 mg EVERY 12 HOURS ORAL 11/05/18 21:00 12/05/18 20:59 11/10/18 09:07 Diphenoxylate HCl/ Atropine (Lomotil) 2.5 mg Q4H PRN ORAL Diarrhea 11/06/18 12:00 12/06/18 11:59 11/10/18 05:44 Docusate Sodium (Colace) 100 mg THREE TIMES A DAY ORAL 11/06/18 18:00 12/06/18 08:59 Epoetin David (Procrit (for ESRD on dialysis)) 10,000 units THU-THU-THU SUBQ 11/08/18 21:00 12/08/18 20:59 11/08/18 21:13 Folic Acid (Folate) 1 mg DAILY ORAL 11/06/18 09:00 12/06/18 08:59 11/10/18 09:07 Heparin Sodium (Porcine) (Heparin 5000 units/ml) 5,000 units EVERY 12 HOURS SUBQ 11/06/18 21:00 12/06/18 20:59 11/09/18 21:29 Hydralazine HCl (Apresoline) 25 mg Q8HR ORAL 11/05/18 22:00 12/05/18 21:59 11/10/18 13:34 Levothyroxine Sodium (Synthroid) 25 mcg DAILY@0630 ORAL 11/06/18 06:30 12/06/18 06:29 11/10/18 05:45 Mirtazapine (Remeron) 15 mg BEDTIME ORAL 11/05/18 21:00 12/05/18 20:59 11/09/18 21:24 Multivitamins (Multivitamins) 1 tab DAILY ORAL 11/06/18 09:00 12/06/18 08:59 11/10/18 09:06 Naloxone HCl (Narcan) 0.2 mg Q30M PRN IVP respritory depression RR<8/min 11/08/18 18:15 12/08/18 18:14 Olanzapine (ZyPREXA) 30 mg DAILY ORAL 11/05/18 20:00 12/05/18 19:59 11/10/18 09:06 Oxycodone/ Acetaminophen (Percocet 5-325) 1.5 tab Q4H PRN ORAL Severe Pain (Pain Scale 7-10) 11/08/18 18:15 11/14/18 18:14 11/10/18 09:50 Pantoprazole (Protonix) 40 mg DAILY ORAL 11/06/18 09:00 12/06/18 08:59 11/10/18 09:06 Sevelamer Carbonate (Renvela) 2,400 mg THREE TIMES A DAY ORAL 11/06/18 18:00 12/06/18 17:59 11/10/18 13:33 Thiamine HCl (Vitamin B1) 100 mg DAILY ORAL 11/06/18 09:00 12/06/18 08:59 11/10/18 09:06 Vitamin B Complex (Vitamin B Complex) 1 tab DAILY ORAL 11/06/18 09:00 12/06/18 08:59 11/10/18 09:06 Height (Feet): 5 Height (Inches): 8.00 Weight (Pounds): 121 General Appearance: no apparent distress Objective no change David Meyers MD Nov 10, 2018 15:54
--- NOTE | 2018-11-10 20:31 | General Progress Note ---
Assessment/Plan Assessment/Plan #. Anemia of kidney disease/esrd -- anemia panel reviewed, has end-stage renal disease, status post missed dialysis via PermCath. --> transfuse on prn basis, if hgb <7 --> no evidence for hemolysis noted --> do not recommend iron at this time --> cont po folic acid and thiamine daily --> HD on permacath R arm --> getting epogen since hd and esrd, also vit b/folic acid --> hemoglobin electrophoresis is normal, no sickle cell trait noted --> no indication for iv iron --> hgb 7.7-->7.6-->7.8-->8.2-->8.6-->9.3-->8.2 #. Thrombocytopenia due to underlying Hepatitis C. has been chronic --> Trend 200s-->134k-->153k --> afp 2.1, and trend plts as needed --> peripheral smear reviewed --> on abx as per ID #. Leukocytosis likely due to infection. --> Improved/Resolved --> completed IV abx #. Left thigh wound, imaging at [facility] reviewed. No evidence of abscess. --> completed abx as per id --> skin protectant per surg #. IV drug use. Homelessness #. Hypothyroidism. #. Hep C -- outpatient eradication #. ESRD on hd 3x a week as per renal #. DVT ppx with heparin sq GREATLY APPRECIATE CONSULTATION. Date and time note entered does not reflect time of patient encounter. Subjective Constitutional: Denies: no symptoms, chills, diaphoresis, fever, malaise, weakness, other HEENT: Denies: no symptoms, eye pain, blurred vision, tearing, double vision, ear pain, ear discharge, nose pain, nose congestion, throat pain, throat swelling, mouth pain, mouth swelling, other Cardiovascular: Denies: no symptoms, chest pain, edema, irregular heart rate, lightheadedness, palpitations, syncope, other Respiratory: Denies: no symptoms, cough, orthopnea, shortness of breath, SOB with excertion, SOB at rest, sputum, stridor, wheezing, other Gastrointestinal/Abdominal: Denies: no symptoms, abdomen distended, abdominal pain, black stools, tarry stools, blood in stool, constipated, diarrhea, difficulty swallowing, nausea, poor appetite, poor fluid intake, rectal bleeding , vomiting, other Genitourinary: Denies: no symptoms, burning, discharge, frequency, flank pain, hematuria, incontinence, pain, urgency, other Endocrine: Denies: no symptoms, excessive sweating, flushing, intolerance to cold, intolerance to heat, increased hunger, increased thirst, increased urine, unexplained weight gain, unexplained weight loss, other Allergies: Coded Allergies: No Known Allergies (Unverified , 10/04/18) Subjective 11/08/18: no fevers, to get HD scheduled, cbc reviewed 11/09/18: Pt is seen in the room, resting and comfortable, HD today, tolerated well, no events 11/10: late entry of noted, no events, pending placement, hd tomorrow Objective Last 24 Hour Vital Signs Date Time Temp Pulse Resp B/P (MAP) Pulse Ox O2 Delivery O2 Flow Rate FiO2 11/10/18 13:34 130/81 11/10/18 12:00 97.0 76 20 130/81 (97) 97 11/10/18 09:07 88 127/75 11/10/18 09:00 Room Air 11/10/18 07:57 97.8 88 20 127/76 (93) 98 11/10/18 05:45 140/71 11/10/18 04:00 98.3 75 17 140/71 (94) 96 11/10/18 00:00 98.0 74 16 123/71 (88) 96 11/09/18 21:24 128/79 11/09/18 21:24 89 128/79 11/09/18 21:00 Room Air Intake and Output 11/09/18 11/10/18 19:00 07:00 Intake Total 720 ml Output Total 2400 ml 600 ml Balance -1680 ml -600 ml Intake Oral 720 ml Output Urine Total 400 ml 600 ml Hemodialysis UF 2000 ml # Bowel Movements 4 4 Height (Feet): 5 Height (Inches): 8.00 Weight (Pounds): 121 Cardiovascular: regular rhythm Respiratory/Chest: lungs clear Extremities: non-tender Edema: trace edema Neurologic: alert Skin: warm/dry Gordo Jang MD Nov 10, 2018 20:31
--- NOTE | 2018-11-11 10:57 | Discharge Summary ---
Discharge Summary Discharge Summary _ DATE OF ADMISSION: 11/08/2018 DATE OF DISCHARGE: 11/10/2018 DISCHARGED BY: Dr. Michael Coleman CONSULTANTS: Dr. David Dalton BRIEF HOSPITAL COURSE: Patient is an unfortunate 62-year-old homeless male, with history of IV drug use and end-stage renal disease, on hemodialysis via right chest wall permacath , with multiple medical problems, who was admitted to [facility] from 10/04/2018 through 11/04/2018 mainly for placement issues, was discharged to recuperative care one day prior to admission. He presented back to ED for failure to thrive, missed hemodialysis, and facility unable to care for him. He has no new complaints. He has chronic pain which was unchanged from prior. He denied any fever, chills, headache, dizziness, chest pain, shortness of breath, nausea, diarrhea, constipation or abdominal pain. He has medical history significant for end-stage renal disease, hemodialysis, IV drug use, hepatitis C, anemia and questionable CAD. On evaluation at the ED, blood work showed creatinine level was 6.9, BUN 81. Potassium level was 4.7. Patient was admitted and he complained of a fall. CT of the head was without any acute intracranial bleed, mass-effect or edema. CT of the pelvis showed no acute bony injury. He was admitted for missed dialysis , failure to thrive and need for placement. He was given supportive care. He was given inpatient hemodialysis. He was given physical therapy and mobility. He complained of pain, MRI of the lumbar spine showed mild degenerative changes; borderline spinal stenosis at L4-L5; borderline neural foraminal stenosis bilaterally at L4-L5 and L5-S1; chronic appearing endplate depression of the inferior endplate of L3; 11 mm signal lesion within the L1 vertebral body, suggest bone scan. He was given pain management with Percocet and baclofen. Bone scan showed no abnormal lumbar spine activity. Lesion on on recent MRI highly likely benign, most likely an atypical hemangioma. He came in with wounds on the left and right thigh. He was given wound care. Patient was anemic, from kidney disease. He was given Epogen, vitamin B and folic acid. There was no indication for IV iron. He had thrombocytopenia due to underlying hepatitis C which had been chronic. He was recommended outpatient follow-up for hepatitis C. He was eventually discharged to [facility]. FINAL DIAGNOSES: End-stage renal disease, status post missed dialysis via permacath Anemia, acute on chronic, with evidence of iron deficiency Hepatitis C Left thigh wound, no evidence of abscess, present on admission IV drug use Homelessness Need for placement Hypothyroidism Chronic back pain: degenerative disc disease, spinal stenosis, 11 mm abnormal L1 lesion CHF Cardiomyopathy Thrombocytopenia DISPOSITION: Patient was discharged to a SNF. DISCHARGE MEDICATIONS: Refer to Discharge Medication List. I have been assigned to dictate discharge summary on this account, and I was not involved in the patient's management. Ludmila Aguirre NP Nov 11, 2018 10:57
== END 2018-11-10 16:03 | DRG 470 ==
LOC: EDBD 14:26 → EMR 15:32 → 4E 15:51 → INTOOBSV 15:51 → EDBEDREQ 16:35 → OBSVTOIN 11-08 10:54
PROC: 5A1D70Z Performance of Urinary Filtration, Intermittent, Less than 6 Hours Per Day (ICD-10-PCS; principal; 2018-11-06)
DX: N18.6 End stage renal disease (principal); I42.9 Cardiomyopathy, unspecified; D69.6 Thrombocytopenia, unspecified; I50.9 Heart failure, unspecified; S71.102A Unspecified open wound, left thigh, initial encounter; D50.9 Iron deficiency anemia, unspecified; F19.10 Other psychoactive substance abuse, uncomplicated; B19.20 Unspecified viral hepatitis C without hepatic coma; D63.8 Anemia in other chronic diseases classified elsewhere; Z91.15 Patient's noncompliance with renal dialysis; Z99.2 Dependence on renal dialysis; Z59.0 Homelessness; X58.XXXA Exposure to other specified factors, initial encounter; E03.9 Hypothyroidism, unspecified; Z91.81 History of falling; Z88.0 Allergy status to penicillin; M51.16 Intervertebral disc disorders with radiculopathy, lumbar region; M47.896 Other spondylosis, lumbar region; M16.0 Bilateral primary osteoarthritis of hip; R53.1 Weakness; R62.7 Adult failure to thrive
CPT/HCPCS: 36415; 70450; 71045; 72148; 72192; 78306; 80053; 80061; 80307; 82550; 82553; 82607; 82728; 82746; 83540; 83550; 83880; 84100; 84443; 84484; 84550; 85025; 86140; 87081; 87324; 93005; 99285

== ENCOUNTER 2018-11-24 13:08 | Emergency (ER) | payer MEDICAID ==
[~2018-11-24] VITALS: Ht 172.7 cm; Wt 72.6 kg
[~2018-11-24 13:08] MED LIST changes: +MULTIVITAMINS1 EAC2 ORAL; +OLANZAPINE10 MG ORAL; +VITAMIN B COMP1 EAC2 ORAL; +ZYPREXA10 MG ORAL
[2018-11-24 13:30] VITALS: BP 126/79
--- NOTE | 2018-11-24 13:30 | NUR ---
ED Nurse Note: Pt BIBA from SNF due to missin dialysis 2 times which were 11/22/2018Thursday and today 11/24/2018. Per pt, the transportation that SNF arranged did not show up both times and SNF sent pt here to be checked. Pt AAO x4 and calm and cooperative. Skin dry but no wound or pressure ulcer noted.
[2018-11-24 14:01] LABS: EOSINOPHILS % (AUTO) 2.2 % (0.0-3.0); HEMATOCRIT 26.3 % (42.0-52.0); HEMOGLOBIN 8.1 G/DL (14.2-18.0); LYMPHOCYTES % (AUTO) 18.6 % (20.0-45.0); MEAN CORPUSCULAR VOLUME 89 FL (80-99); MONOCYTES % (AUTO) 8.8 % (1.0-10.0); NEUTROPHILS % (AUTO) 69.3 % (45.0-75.0); PLATELET COUNT 177 K/UL (150-450); RED BLOOD COUNT 2.95 M/UL (4.70-6.10); WHITE BLOOD COUNT 9.9 K/UL (4.8-10.8)
[2018-11-24 14:10] LABS: ANION GAP 9 mmol/L (5-15); BLOOD UREA NITROGEN 69 mg/dL (7-18); CALCIUM 7.2 MG/DL (8.5-10.1); CARBON DIOXIDE 28 MMOL/L (21-32); CHLORIDE 101 MMOL/L (98-107); CREATININE 7.5 MG/DL (0.55-1.30); SODIUM 137 MMOL/L (136-145)
[2018-11-24 14:15] LABS: ALANINE AMINOTRANSFERASE 23 U/L (12-78); ALBUMIN 1.4 G/DL (3.4-5.0); ALBUMIN/GLOBULIN RATIO 0.3 (1.0-2.7); ALKALINE PHOSPHATASE 152 U/L (46-116); ASPARTATE AMINO TRANSFERASE 21 U/L (15-37); BILIRUBIN,TOTAL 0.3 MG/DL (0.2-1.0)
--- NOTE | 2018-11-24 14:27 | Emergency Room Report ---
History of Present Illness General Chief Complaint: General Complaint Source: Patient, Medical Record Present Illness HPI This patient missed dialysis on Thursday. The patient normally gets dialysis Thursday/ Thursday/Thursday. Per report, the retirement facility that he resides and was unable to arrange transportation for the patient to dialysis. The patient himself has no complaints. Allergies: Coded Allergies: No Known Allergies (Unverified , 10/04/18) Patient History Past Medical History: see triage record, HTN, renal disease, dialysis, other - HCV Social History: Denies: smoking, alcohol use, drug use - HX of heroin abuse Reviewed Nursing Documentation: PMH: Agreed; PSxH: Agreed Nursing Documentation-PMH Past Medical History: No History, Except For Hx Cardiac Problems: No - HEP C, FTT, Cellulitis, hypothyroidism Hx Hypertension: Yes Hx Cancer: No Hx Gastrointestinal Problems: Yes Hx Dialysis: Yes Hx Neurological Problems: Yes - chronic back pain Review of Systems All Other Systems: negative except mentioned in HPI Physical Exam Vital Signs Date Time Temp Pulse Resp B/P (MAP) Pulse Ox O2 Delivery O2 Flow Rate FiO2 11/24/18 13:18 97.7 65 16 126/79 99 Nasal Cannula 2.0 Sp02 EP Interpretation: reviewed, normal General Appearance: no apparent distress, alert, GCS 15, non-toxic Head: normocephalic, atraumatic Eyes: bilateral eye normal inspection, bilateral eye PERRL ENT: hearing grossly normal, normal pharynx, no angioedema, normal voice Neck: full range of motion, supple/symm/no masses Respiratory: chest non-tender, lungs clear, normal breath sounds, no respiratory distress, speaking full sentences Cardiovascular #1: regular rate, rhythm, no edema Gastrointestinal: non tender, soft, no guarding, no rebound Rectal: deferred Musculoskeletal: back normal, gait/station normal, normal range of motion, non- tender Neurologic: alert, oriented x3, responsive, motor strength/tone normal, sensory intact, speech normal Psychiatric: judgement/insight normal, memory normal, mood/affect normal, no suicidal/homicidal ideation Skin: normal color, no rash, warm/dry, well hydrated Medical Decision Making Diagnostic Impression: Primary Impression: Dialysis patient Additional Impression: ESRD (end stage renal disease) on dialysis ER Course The patient's labs were assessed. The patient does not need emergency dialysis. There is no evidence of renal encephalopathy or hyperkalemia. Overall, the patient does not appear fluid overloaded and is nontoxic and appropriate. The patient can obtain dialysis from the retirement facility where he resides in a routine manner tomorrow. He is returned to the retirement facility. Laboratory Tests Test 11/24/18 13:40 White Blood Count 9.9 K/UL (4.8-10.8) Red Blood Count 2.95 M/UL (4.70-6.10) L Hemoglobin 8.1 G/DL (14.2-18.0) L Hematocrit 26.3 % (42.0-52.0) L Mean Corpuscular Volume 89 FL (80-99) Mean Corpuscular Hemoglobin 27.6 PG (27.0-31.0) Mean Corpuscular Hemoglobin Concent 30.9 G/DL (32.0-36.0) L Red Cell Distribution Width 16.0 % (11.6-14.8) H Platelet Count 177 K/UL (150-450) Mean Platelet Volume 5.5 FL (6.5-10.1) L Neutrophils (%) (Auto) 69.3 % (45.0-75.0) Lymphocytes (%) (Auto) 18.6 % (20.0-45.0) L Monocytes (%) (Auto) 8.8 % (1.0-10.0) Eosinophils (%) (Auto) 2.2 % (0.0-3.0) Basophils (%) (Auto) 1.0 % (0.0-2.0) Sodium Level 137 MMOL/L (136-145) Potassium Level 5.0 MMOL/L (3.5-5.1) Chloride Level 101 MMOL/L (98-107) Carbon Dioxide Level 28 MMOL/L (21-32) Anion Gap 9 mmol/L (5-15) Blood Urea Nitrogen 69 mg/dL (7-18) H Creatinine 7.5 MG/DL (0.55-1.30) H Estimate Glomerular Filtration Rate 7.4 mL/min (>60) Glucose Level 78 MG/DL (74-106) Calcium Level 7.2 MG/DL (8.5-10.1) L Total Bilirubin 0.3 MG/DL (0.2-1.0) Aspartate Amino Transferase (AST) 21 U/L (15-37) Alanine Aminotransferase (ALT) 23 U/L (12-78) Alkaline Phosphatase 152 U/L (46-116) H Total Protein 6.0 G/DL (6.4-8.2) L Albumin 1.4 G/DL (3.4-5.0) L Globulin 4.6 g/dL Albumin/Globulin Ratio 0.3 (1.0-2.7) L Last Vital Signs Date Time Temp Pulse Resp B/P (MAP) Pulse Ox O2 Delivery O2 Flow Rate FiO2 11/24/18 13:18 97.7 65 16 126/79 99 Nasal Cannula 2.0 Disposition: XFER SNF Condition: Stable Oneyda Abernathy DO Nov 24, 2018 14:27
--- NOTE | 2018-11-24 15:00 | NUR ---
ED Nurse Note: Pt was provided meal per request and with doctor's confirmation. Pt is eating currently.
--- NOTE | 2018-11-24 16:30 | NUR ---
ED Nurse Note: Pt was informed that he will be sent back to SNF with confirmation that he will get dialysis tomorrow by dr. Gonzalez and pt verbaized understanding. Transportation is set up for 1700.
[2018-11-24 17:00] VITALS: BP 142/74
--- NOTE | 2018-11-24 17:00 | NUR ---
ED Nurse Note: Pt was cleared to be discharged by MAC and left in stable condition by tia with 2 diagnostic imaging manager. Johanna at [facility] informed on pt's return. Pt was connected to oxygen for 2L/min via NC. Dr Gonzalez confirmed that he will get dialysis tomorrow. Pt was informed and verbalized understanding.
== END 2018-11-24 17:00 ==
LOC: EDBD 13:08 → EMR 14:36 → EDBEDREQ 15:46 → CANBEDREQ 16:15 → EMR 17:00
DX: I12.0 Hypertensive chronic kidney disease with stage 5 chronic kidney disease or end stage renal disease (principal); Z99.2 Dependence on renal dialysis; G89.29 Other chronic pain; M54.9 Dorsalgia, unspecified; Z86.19 Personal history of other infectious and parasitic diseases; Z87.891 Personal history of nicotine dependence
CPT/HCPCS: 36415; 80053; 85025; 99283

== ENCOUNTER 2018-12-13 12:08 | Emergency (ER) | payer MEDICAID ==
[~2018-12-13] VITALS: Ht 172.7 cm; Wt 77.1 kg
[2018-12-13 13:36] LABS: ANION GAP 8 mmol/L (5-15); BLOOD UREA NITROGEN 46 mg/dL (7-18); CALCIUM 7.4 MG/DL (8.5-10.1); CARBON DIOXIDE 30 MMOL/L (21-32); CHLORIDE 98 MMOL/L (98-107); CREATININE 5.6 MG/DL (0.55-1.30); POTASSIUM 4.6 MMOL/L (3.5-5.1); SODIUM 136 MMOL/L (136-145)
[2018-12-13 13:39] LABS: BASOPHILS % (AUTO) 1.6 % (0.0-2.0); EOSINOPHILS % (AUTO) 4.7 % (0.0-3.0); HEMATOCRIT 24.2 % (42.0-52.0); HEMOGLOBIN 7.5 G/DL (14.2-18.0); LYMPHOCYTES % (AUTO) 17.4 % (20.0-45.0); MEAN CORPUSCULAR VOLUME 90 FL (80-99); MONOCYTES % (AUTO) 10.8 % (1.0-10.0); NEUTROPHILS % (AUTO) 65.5 % (45.0-75.0); PLATELET COUNT 161 K/UL (150-450); RED CELL DISTRIBUTION WIDTH 17.7 % (11.6-14.8); WHITE BLOOD COUNT 8.3 K/UL (4.8-10.8)
[2018-12-13 13:41] LABS: ALANINE AMINOTRANSFERASE 32 U/L (12-78); ALBUMIN 1.5 G/DL (3.4-5.0); ALBUMIN/GLOBULIN RATIO 0.3 (1.0-2.7); ALKALINE PHOSPHATASE 226 U/L (46-116); ASPARTATE AMINO TRANSFERASE 44 U/L (15-37); BILIRUBIN,TOTAL 0.3 MG/DL (0.2-1.0)
--- NOTE | 2018-12-13 13:41 | NUR ---
ED Nurse Note: Pt. AAOx4. ambulatory. brought in by PANTERA from [facility] due to abnormal labs of Hgb 6.6 and Hct 22.3. With NC 2L/min, 98%. Dialysis T/Th/Sat- last dialysis was 12/11/18. Dialysis access on the R chest area. 3 open wounds noted(check integumentary intervention for more details).
--- NOTE | 2018-12-13 14:36 | Emergency Room Report ---
History of Present Illness General Chief Complaint: Abnormal Labs Source: Patient, Medical Record, EMS Present Illness HPI Patient is a 63-year-old male presented after abnormal laboratory testing. Patient had recent blood count done at his facility. Patient was noted to have some evidence of anemia. Patient a prior history of end-stage renal disease and is currently being dialyzed every Thursday and Thursday. Patient reports having recent dialysis. He denies any current complaints. Patient denies any recent bleeding. He reports having prior history of chronic pain. Allergies: Coded Allergies: PENICILLINS (Unverified Allergy, Unknown, 12/13/18) Patient History Past Medical History: see triage record Reviewed Nursing Documentation: PMH: Agreed Nursing Documentation-PMH Past Medical History: No History, Except For Hx Hypertension: Yes Hx Cancer: No Hx Gastrointestinal Problems: Yes Hx Dialysis: Yes - //THU; HTN CKD Hx Neurological Problems: Yes - chronic back pain Review of Systems All Other Systems: negative except mentioned in HPI Physical Exam Vital Signs Date Time Temp Pulse Resp B/P (MAP) Pulse Ox O2 Delivery O2 Flow Rate FiO2 12/13/18 12:02 97.5 67 16 104/67 98 Nasal Cannula 2.0 Sp02 EP Interpretation: reviewed, normal General Appearance: no apparent distress, alert, GCS 15, Chronically Ill Head: atraumatic Eyes: bilateral eye conjunctivae pale ENT: normal ENT inspection, hearing grossly normal, normal voice Neck: normal inspection, full range of motion, supple, no bony tend Respiratory: normal inspection, lungs clear, normal breath sounds, no respiratory distress, no retraction, no wheezing Cardiovascular #1: regular rate, rhythm, no edema Gastrointestinal: non tender, soft, no guarding, no hernia Genitourinary: no CVA tenderness Musculoskeletal: normal inspection, back normal, normal range of motion Neurologic: normal inspection, alert, oriented x3, responsive, neonatal intensive care nurse III-XII nml as tested, speech normal Psychiatric: normal inspection, judgement/insight normal, mood/affect normal Skin: normal inspection, normal color, no rash Medical Decision Making Diagnostic Impression: Primary Impression: Dialysis patient Additional Impression: Anemia ER Course Patient presented for abnormal laboratory testing. Differential diagnosis include was not limited to lab error, GI bleed, among others. Because of complexity of patient's case laboratory testing and imaging studies were ordered. Laboratory studies showed improved hemoglobin compared to previous labs. Patient was given oral pain medications for chronic pain. Patient was discussed with primary care physician and patient will be sent back to his facility. Labs Test 12/13/18 13:02 White Blood Count 8.3 K/UL (4.8-10.8) Red Blood Count 2.70 M/UL (4.70-6.10) Hemoglobin 7.5 G/DL (14.2-18.0) Hematocrit 24.2 % (42.0-52.0) Mean Corpuscular Volume 90 FL (80-99) Mean Corpuscular Hemoglobin 27.9 PG (27.0-31.0) Mean Corpuscular Hemoglobin Concent 31.1 G/DL (32.0-36.0) Red Cell Distribution Width 17.7 % (11.6-14.8) Platelet Count 161 K/UL (150-450) Mean Platelet Volume 5.8 FL (6.5-10.1) Neutrophils (%) (Auto) 65.5 % (45.0-75.0) Lymphocytes (%) (Auto) 17.4 % (20.0-45.0) Monocytes (%) (Auto) 10.8 % (1.0-10.0) Eosinophils (%) (Auto) 4.7 % (0.0-3.0) Basophils (%) (Auto) 1.6 % (0.0-2.0) Prothrombin Time 10.9 SEC (9.30-11.50) Prothromb Time International Ratio 1.0 (0.9-1.1) Activated Partial Thromboplast Time 29 SEC (23-33) Sodium Level 136 MMOL/L (136-145) Potassium Level 4.6 MMOL/L (3.5-5.1) Chloride Level 98 MMOL/L (98-107) Carbon Dioxide Level 30 MMOL/L (21-32) Anion Gap 8 mmol/L (5-15) Blood Urea Nitrogen 46 mg/dL (7-18) Creatinine 5.6 MG/DL (0.55-1.30) Estimat Glomerular Filtration Rate 10.3 mL/min (>60) Glucose Level 97 MG/DL (74-106) Calcium Level 7.4 MG/DL (8.5-10.1) Total Bilirubin 0.3 MG/DL (0.2-1.0) Aspartate Amino Transf (AST/SGOT) 44 U/L (15-37) Alanine Aminotransferase (ALT/SGPT) 32 U/L (12-78) Alkaline Phosphatase 226 U/L (46-116) Total Protein 6.6 G/DL (6.4-8.2) Albumin 1.5 G/DL (3.4-5.0) Globulin 5.1 g/dL Albumin/Globulin Ratio 0.3 (1.0-2.7) Last Vital Signs Date Time Temp Pulse Resp B/P (MAP) Pulse Ox O2 Delivery O2 Flow Rate FiO2 12/13/18 12:02 97.5 67 16 104/67 98 Nasal Cannula 2.0 Status: improved Disposition: [facility] SNF Condition: Stable Patient Instructions: Anemia, Nonspecific Catracho Gonzalez MD Dec 13, 2018 14:36
[2018-12-13 14:40] VITALS: BP 125/69
--- NOTE | 2018-12-13 14:51 | NUR ---
ED Nurse Note: telephone report given to PRISCILLA Shultz
[2018-12-13 15:20] VITALS: BP 132/60
--- NOTE | 2018-12-13 15:20 | NUR ---
ED Nurse Note: PT. AAOX4. LEFT WITH STEADY GAIT. PT. EDUCATION DONE REGARDING D/C PAPERS AND PRESCRIPTIONS.PT. VERBALIZED THE UNDERSTANDING OF THE TEACHING. VSS. ID ARMBAND REMOVED.IV ACCESS REMOVED. REPORT GIVEN TO PRISCILLA NEWBERRY. PT. LEFT WITH ALL BELONGINGS
== END 2018-12-13 15:20 ==
LOC: EDBD 12:08 → EMR 13:25 → CANBEDREQ 14:07 → EMR 15:20
DX: D64.9 Anemia, unspecified (principal); I12.0 Hypertensive chronic kidney disease with stage 5 chronic kidney disease or end stage renal disease; N18.6 End stage renal disease; Z99.2 Dependence on renal dialysis
CPT/HCPCS: 36415; 80053; 85025; 85610; 85730; 86850; 86900; 86901; 93005; 99283